=== PATIENT | male | born 1955 | race Caucasian/White ===

== ENCOUNTER 2016-12-15 18:06 | Inpatient (IN) | payer BC ==
[~2016-12-15] VITALS: Ht 175.3 cm; Wt 65.4 kg
[2016-12-15 18:32] LABS: BASO # 0.1 x10^3/uL (0.0-0.2); BASO % 1 % (0-3); EOS % 0 % (0-3); HEMATOCRIT 45.9 % (39.0-53.0); HEMOGLOBIN 15.7 g/dL (13.0-17.5); LYMPH # 0.7 x10^3/uL (1.0-4.8); LYMPH % 6 % (24-48); MEAN CORPUSCULAR HEMOGLOBIN 33 pg (25-35); MEAN CORPUSCULAR HGB CONC 34 g/dL (31-37); MEAN CORPUSCULAR VOLUME 96 fL (79-100); MONO % 6 % (0-9); NEUT % 87 % (31-73); PLATELET COUNT 230 x10^3/uL (140-400); RED BLOOD COUNT 4.77 x10^6/uL (4.30-5.70); RED CELL DISTRIBUTION WIDTH 12.6 % (11.5-14.5)
[2016-12-15 18:44] LABS: CALCIUM 9.8 mg/dL (8.5-10.1); CREATININE 0.8 mg/dL (0.7-1.3); POTASSIUM 4.2 mmol/L (3.5-5.1)
[2016-12-15] MEDS ORDERED: MVI, ADULT NO.4 WITH VIT K 10 ML, FOLIC ACID 1 MG, THIAMINE 100 MG in IV NORMAL SALINE ... IV ONE ×4 (18:45)
[2016-12-15] MEDS ORDERED: ONDANSETRON PF 4 MG/2 ML VIAL. IV ONE (18:45)
[2016-12-15 18:54] LABS: ETHANOL < 10 mg/dL (0-10)
--- NOTE | 2016-12-15 19:50 | RAD ---
PQRS STATEMENT One or more of the following individualized dose reduction techniques were utilized for this study: 1.Automated exposure control 2.Adjustment of the mA and/or kV according to patient size 3.Use of iterative reconstruction technique CT HEAD Indication: FALL, UNRESPONSIVE, NO PRIORS, HX DENIES Reason: fall / Spl. Instructions: / History: TECHNIQUE: 5 mm contiguous axial images were obtained from the skull base to the vertex in both bone and soft tissue algorithm. FINDINGS: There is a large acute intraparenchymal hematoma centered about the right frontal lobe. This measures approximately 6.0 by 6.3 by 5.1 centimeters. This hematoma results in midline shift and overall mass effect which includes trapping of the lateral ventricles secondary to the mass effect upon the 3rd ventricle and foramina of Monro. This results in ventriculomegaly. There is also some intraventricular hemorrhage. Impression: - Large right frontal lobe intraparenchymal hematoma resulting in 16 millimeters right to left midline shift and causing trapping of the lateral ventricles with resulting ventriculomegaly. These critical findings were discussed with Dr. Moreland by telephone at 7:37 p.m. on 12/15/2016. PQRS STATEMENT One or more of the following individualized dose reduction techniques were utilized for this study: 1.Automated exposure control 2.Adjustment of the mA and/or kV according to patient size 3.Use of iterative reconstruction technique CT cervical spine Indication:FALL, UNRESPONSIVE, NO PRIORS, HX DENIES Reason: fall / Spl. Instructions: / History: Technique: Multiple contiguous axial images were obtained through the cervical spine. Coronal and sagittal reformations were created. Findings: The occipital condyles articulate normally with the lateral masses of C1. The odontoid is intact. Alignment and curvature are within normal limits. Vertebral body heights are maintained. No perching of the facets. There is multilevel degenerative disc height loss greatest C5-6 and C6-7. Moderate neural foraminal stenosis is seen at these levels secondary to facet and uncovertebral hypertrophy. This is greatest on the left at C6-7. Correlate for C6 or C7 radiculopathy symptoms. Carotid artery calcifications are noted bilaterally. Lung apices are clear. Impression: - Negative for cervical spine fracture. - Multilevel degenerative disc disease greatest at C5-6 and C6-7 - Bilateral carotid artery calcifications. Electronically signed by: Abisai Roberts (Dec 15, 2016 19:49:43)
[2016-12-15] MEDS ORDERED: PROPOFOL 0 ML IV ONE (19:57)
[2016-12-15] MEDS ORDERED: PROPOFOL 50 ML IV ONE (19:57)
[2016-12-15 19:58] LABS: PLT ESTIMATE ADEQUATE (ADEQUATE)
[2016-12-15 19:59] LABS: TOXIC GRANULATION SLIGHT
[2016-12-15 20:34] LABS: HCO3 ABG 23 mmol/L (21-28); PCO2 ABG 30 mmHg (35-46); PH ABG 7.49 (7.35-7.45); PO2 ABG > 503 mmHg (65-108); SAT O2 ABG 99 % (92-99)
[2016-12-15] MEDS ORDERED: ONDANSETRON PF 4 MG/2 ML VIAL. IV PRN ×3 (20:45→23:30)
[2016-12-15] MEDS ORDERED: ETOMIDATE 20 MG/10 ML VIAL. IV ONE (20:45)
[2016-12-15] MEDS ORDERED: SUCCINYLCHOLINE 200 MG/10 ML VIAL. IV ONE (20:45)
[2016-12-15] MEDS ORDERED: LIDOCAINE 2% 100 MG/5 ML DISP.SYRIN. ONE (20:45)
[2016-12-15] MEDS ORDERED: FENTANYL PF 100 MCG/2 ML VIAL. ONE (20:46)
[2016-12-15] MEDS ORDERED: ROCURONIUM 50 MG/5 ML VIAL. ONE (20:46)
--- NOTE | 2016-12-15 20:51 | PHYS DOC ---
Past Medical History Past Medical History: Hypertension, Other Additional Past Medical Histor: ALCOHOL ABUSE Past Surgical History: Other Alcohol Use: Heavy Drug Use: None Adult General Chief Complaint Chief Complaint: ALCOHOL INTOXICATION HPI HPI 61-year-old male who was found down in his garage by EMS with multiple whiskey bottles around him. Patient has history of chronic alcoholic use. Patient currently is not able to provide any history as he is acutely altered. His at bedside states patient was acting fairly appropriately earlier today and she was able to have a phone conversation with him at 1300 hrs. She then states several hours later she found him down and called EMS. She does state upon further questioning that he has had frequent falls in the recent few days and does have history of falls but states that the patient sometimes does not tell her when he falls. These falls are likely secondary to his history of alcohol use. Patient has not been into any rehabilitation treatment for his use. at bedside states he has history of hypertension only. Patient currently is not taking any blood thinners. She does appear to respond to sternal rub and has a GCS of 10 upon arrival. A complete stroke scale is unable to be obtained secondary to the patient's acutely altered mental status. Review of Systems Review of Systems A 10 point review of systems unable to obtain secondary to the patient's ongoing mental status. Current Medications Current Medications Current Medications Medications (Trade) Dose Ordered Sig/[facility] Start Time Stop Time Status Last Admin Dose Admin Acetaminophen (Tylenol) 650 mg PRN Q4HRS PRN 12/15/16 20:45 12/16/16 20:44 Etomidate (Amidate) 20 mg 1X ONCE 12/15/16 20:45 12/15/16 20:53 DC 12/15/16 19:51 20 MG Fentanyl Citrate (Fentanyl 2ml Vial) 100 mcg STK-MED ONCE 12/15/16 20:46 12/15/16 20:47 DC Lidocaine HCl 100 mg STK-MED ONCE 12/15/16 20:45 12/15/16 20:46 DC Multivitamins/ Minerals 10 ml/ Folic Acid 1 mg/ Thiamine HCl 100 mg/Sodium Chloride 1,011.2 ml @ 1,000 mls/ hr 1X ONCE 12/15/16 18:45 12/15/16 19:45 DC 12/15/16 18:53 1,000 MLS/HR Ondansetron HCl 4 mg 4 mg PRN Q8HRS PRN 12/15/16 20:45 12/16/16 20:44 Propofol (Diprivan) 50 ml @ As Directed STK-MED ONCE 12/15/16 19:57 12/15/16 19:58 DC Rocuronium [place] (Zemuron) 50 mg STK-MED ONCE 12/15/16 20:46 12/15/16 20:47 DC Sodium Chloride (Iv Sodium Chloride 0.9% 1000ml Bag) 1,000 ml @ 100 mls/hr Q10H 12/15/16 20:45 12/16/16 20:44 12/15/16 21:20 100 MLS/HR Succinylcholine Chloride (Anectine) 100 mg 1X ONCE 12/15/16 20:45 12/15/16 20:53 DC 12/15/16 19:52 100 MG Allergies Allergies Allergies Coded Allergies Type Severity Reaction Last Updated Verified No Known Drug Allergies 12/15/16 No Physical Exam Physical Exam Constitutional: Well developed, well nourished, no acute distress, non-toxic appearance. [] HENT: Normocephalic, atraumatic, bilateral external ears normal, oropharynx moist, no oral exudates, nose normal. [] Eyes: PERRLA, EOMI, conjunctiva normal, no discharge. [] Neck: Normal range of motion, supple, no stridor. [] Cardiovascular:Heart rate regular rhythm, no murmur [] Lungs & Thorax: Bilateral breath sounds clear to auscultation, mildly tachypneic [] Abdomen: Bowel sounds normal, soft, no tenderness, no masses, no pulsatile masses. [] Skin: Warm, dry, no erythema, no rash. [] Extremities: No cyanosis, no clubbing, ROM intact, no edema. [] Neurologic: Pt is not displaying any spontaneous movements of any extremities, he is non-verbal but does respond somewhat to noxious stimulus. [] Current Patient Data Vital Signs Vital Signs Date Time Temp Pulse Resp B/P Pulse Ox O2 Delivery O2 Flow Rate FiO2 12/15/16 20:40 Ventilator 12/15/16 20:09 99 12/15/16 18:33 98.6 84 24 167/111 98.6 Lab Values Laboratory Tests Test 12/15/16 18:25 12/15/16 20:20 White Blood Count 11.0x10^3/uL (4.0-11.0) Red Blood Count 4.77x10^6/uL (4.30-5.70) Hemoglobin 15.7g/dL (13.0-17.5) Hematocrit 45.9% (39.0-53.0) Mean Corpuscular Volume 96fL (79-100) Mean Corpuscular Hemoglobin 33pg (25-35) Mean Corpuscular Hemoglobin Concent 34g/dL (31-37) Red Cell Distribution Width 12.6% (11.5-14.5) Platelet Count 230x10^3/uL (140-400) Neutrophils (%) (Auto) 87% (31-73) H Lymphocytes (%) (Auto) 6% (24-48) L Monocytes (%) (Auto) 6% (0-9) Eosinophils (%) (Auto) 0% (0-3) Basophils (%) (Auto) 1% (0-3) Neutrophils # (Auto) 9.5x10^3uL (1.8-7.7) H Lymphocytes # (Auto) 0.7x10^3/uL (1.0-4.8) L Monocytes # (Auto) 0.7x10^3/uL (0.0-1.1) Eosinophils # (Auto) 0.0x10^3/uL (0.0-0.7) Basophils # (Auto) 0.1x10^3/uL (0.0-0.2) Segmented Neutrophils % 86% (35-66) H Band Neutrophils % 5% (0-9) Lymphocytes % 5% (24-48) L Monocytes % 4% (0-10) Toxic Granulation Slight Platelet Estimate Adequate (ADEQUATE) Sodium Level 133mmol/L (136-145) L Potassium Level 4.2mmol/L (3.5-5.1) Chloride Level 94mmol/L (98-107) L Carbon Dioxide Level 27mmol/L (21-32) Anion Gap 12 (6-14) Blood Urea Nitrogen 8mg/dL (8-26) Creatinine 0.8mg/dL (0.7-1.3) Estimated GFR (Cockcroft-Gault) 98.0 Glucose Level 164mg/dL (70-99) H Calcium Level 9.8mg/dL (8.5-10.1) Salicylates Level < 2.8mg/dL (2.8-20.0) L Salicylate Last Dose Date Unknown Salicylate Last Dose Time Unknown Acetaminophen Level < 2mcg/ml (10-30) L Acetaminophen Last Dose Date Unknown Acetaminophen Last Dose Time Unknown Ethyl Alcohol Level < 10mg/dL (0-10) O2 Saturation 99% (92-99) Arterial Blood pH 7.49 (7.35-7.45) H Arterial Blood pCO2 at Patient Temp 30mmHg (35-46) L Arterial Blood pO2 at Patient Temp > 503mmHg (65-108) H Arterial Blood HCO3 23mmol/L (21-28) Arterial Blood Base Excess 1mmol/L (-3-3) FiO2 100 Laboratory Tests 12/15/16 18:25 Laboratory Tests 12/15/16 18:25 EKG EKG EKG as interpreted by me shows a heart rate of 93 bpm. There is significant artifact seen throughout this EKG but there are no obvious ischemic findings. Radiology/Procedures Radiology/Procedures CT of the head without contrast demonstrated the following: Indication: FALL, UNRESPONSIVE, NO PRIORS, HX DENIES Reason: fall / Spl. Instructions: / History: TECHNIQUE: 5 mm contiguous axial images were obtained from the skull base to the vertex in both bone and soft tissue algorithm. FINDINGS: There is a large acute intraparenchymal hematoma centered about the right frontal lobe. This measures approximately 6.0 by 6.3 by 5.1 centimeters. This hematoma results in midline shift and overall mass effect which includes trapping of the lateral ventricles secondary to the mass effect upon the 3rd ventricle and foramina of Monro. This results in ventriculomegaly. There is also some intraventricular hemorrhage. Impression: - Large right frontal lobe intraparenchymal hematoma resulting in 16 millimeters right to left midline shift and causing trapping of the lateral ventricles with resulting ventriculomegaly. CT of the cervical spine demonstrated the following: CT cervical spine Indication:FALL, UNRESPONSIVE, NO PRIORS, HX DENIES Reason: fall / Spl. Instructions: / History: Technique: Multiple contiguous axial images were obtained through the cervical spine. Coronal and sagittal reformations were created. Findings: The occipital condyles articulate normally with the lateral masses of C1. The odontoid is intact. Alignment and curvature are within normal limits. Vertebral body heights are maintained. No perching of the facets. There is multilevel degenerative disc height loss greatest C5-6 and C6-7. Moderate neural foraminal stenosis is seen at these levels secondary to facet and uncovertebral hypertrophy. This is greatest on the left at C6-7. Correlate for C6 or C7 radiculopathy symptoms. Carotid artery calcifications are noted bilaterally. Lung apices are clear. Impression: - Negative for cervical spine fracture. - Multilevel degenerative disc disease greatest at C5-6 and C6-7 - Bilateral carotid artery calcifications. Course & Med Decision Making Course & Med Decision Making This unfortunate 61-year-old male with concern initially for ethanol intoxication has a large intraparenchymal hematoma will be admitted to the ICU for further evaluation and treatment. His ethanol level is negative. His toxicology screen was negative and his blood work is unrevealing. Patient was intubated while in the department to protect his airway and to control his respirations and to optimize him for surgery. The case was discussed with the neurosurgeon, Dr. Paredes, who agreed to take the patient to the OR immediately for evacuation of blood and ventriculostomy. We'll continue to hyperventilate him on the ventilator. His ABG reveals a respiratory alkalosis and his PCO2 is 30 which is appropriate. His blood pressure has improved significantly with sedation and at this time he will we will keep the head of the bed at 30 and keep his vitals signs as optimal as possible before his procedure. Prognosis is grave this patient however and he has a significant chance of being in a persistent vegetative state unfortunately. This is likely indicated the family who still stated they would like to proceed with operative treatment. His case was discussed with the hospitalist, Dr. Erazo, who agreed to admit the patient for further evaluation and treatment. Proximal a 30 minute critical care time used in consultation with specialist. A pastoral consult was also placed and he arrived at bedside to help the patient's family as they deal with this difficult time. Dragon Disclaimer Dragon Disclaimer This electronic medical record was generated, in whole or in part, using a voice recognition dictation system. Critical Care Time Critical care time was 30 minutes exclusive of procedures. Intubation Procedure Intub Indication: Airway protection Consent: Unable to give consent due to emergent nature. Medications Used: see nursing note Procedure: The patient was placed in the appropriate position. Intubation was performed using direct visualization and rapid sequence intubation with a 7.5 endotracheal tube on the first attempt. Initial confirmation of placement included bilateral breath sounds, tube fogging, adequate chest rise, adequate pulse oximetry reading, and positive colorimetry. A chest x-ray to verify correct placement of the tube showed appropriate tube position. The patient tolerated the procedure well. Complications: none. Departure Departure Impression: Primary Impression: Intraparenchymal hematoma of brain Disposition: 09 ADMITTED INPATIENT Admitting Physician: Jenni Erazo Condition: CRITICAL Referrals: LISA KAUR (PCP) GWENDOLYN BRIDGES DO Dec 15, 2016 20:51
[2016-12-15] MEDS ORDERED: GELATIN SPONGE SIZE 100. ONE (20:58)
[2016-12-15] MEDS ORDERED: SURGICEL HEMOSTAT 4X8 EACH. ONE (20:58)
[2016-12-15] MEDS ORDERED: THROMBIN 20,000 UNIT SPRAY.SYRN KIT TP ONE (20:58)
[2016-12-15] MEDS ORDERED: BUPIVAC MPF-EPI 0.5%-1:200000 30 ML VIAL. ONE (20:58)
[2016-12-15] MEDS ORDERED: BACITRACIN 50,000 UNIT in IV NORMAL SALINE 1000ML BAG 1,000 ML IRR ONE (21:00)
[2016-12-15] MEDS ORDERED: PROPOFOL 20 ML IV ONE (21:06)
[2016-12-15] MEDS: IV NORMAL SALINE 1000ML BAG 1,000 ML IV SCH (21:20)
[2016-12-15] MEDS ORDERED: DESFLURANE 61 TO 120 MINUTES IH ONE (21:49)
[2016-12-15] MEDS ORDERED: CEFAZOLIN 2GM PREMIX 50 ML IV ONE (21:52)
[2016-12-15] MEDS ORDERED: MANNITOL 20% PREMIX 500 ML IV ONE (21:53)
[2016-12-15] MEDS ORDERED: PHENYLEPHRINE in 0.9% NACL PF 1 MG/10 ML DISP.SYRIN. IV ONE (21:55)
[2016-12-15] MEDS ORDERED: LEVETIRACETAM 1,000 MG in IV NORMAL SALINE 100ML 100 ML IV ONE (22:15)
[2016-12-15] MEDS ORDERED: IV RINGERS,LACTATED 1000ML 1,000 ML IV SCH (22:30)
[2016-12-15] MEDS ORDERED: MORPHINE SULFATE 2 MG/ML DISP.SYRIN. IV PRN (22:30)
[2016-12-15] MEDS ORDERED: FENTANYL PF 100 MCG/2 ML VIAL. IV PRN ×2 (22:30)
[2016-12-15] MEDS ORDERED: LIDOCAINE 1% 1 ML SYRINGE. ID PRN (22:30)
[2016-12-15] MEDS ORDERED: HYDROMORPHONE 2 MG/ML VIAL. IV PRN (22:30)
[2016-12-15] MEDS ORDERED: PROCHLORPERAZINE 10 MG/2 ML VIAL. IV PRN (22:30)
[2016-12-15] MEDS ORDERED: PROPOFOL 10 MG/ML (100ML) VIAL. IV ONE (23:00)
[2016-12-15] MEDS ORDERED: PROPOFOL 100 ML IV ONE (23:13)
[2016-12-15 23:30] VITALS: BP_SYST 130; BP_SYST 132; BP_DIAS 54; BP_DIAS 67
[2016-12-15] MEDS ORDERED: DIPHENHYDRAMINE 50 MG/ML VIAL IV PRN (23:30)
[2016-12-15] MEDS ORDERED: 0.9 % SODIUM CHLORIDE 10 ML DISP.SYRIN. IV PRN (23:30)
[2016-12-15] MEDS ORDERED: DIPHENHYDRAMINE HCL 25 MG CAPSULE PO PRN (23:30)
[2016-12-15] MEDS ORDERED: DEXTROSE 50% 25 GM / 50ML DISP.SYRIN. IV PRN (23:30)
[2016-12-15] MEDS ORDERED: NICARDIPINE HCL 50 MG in IV NORMAL SALINE 250ML 250 ML IV PRN (23:30)
[2016-12-15] MEDS ORDERED: MAGNESIUM HYDROXIDE 2,400 MG/30 ML ORAL.SUSP. PO PRN (23:30)
[2016-12-15 23:45] VITALS: BP_SYST 124; BP_SYST 130; BP_DIAS 54; BP_DIAS 55
[2016-12-16] VITALS (27 sets, daily range): BP systolic 84–168; BP diastolic 52–85
[2016-12-16] MEDS ORDERED: PROPOFOL 100 ML IV PRN ×2
[2016-12-16 00:27] LABS: FIO2 ABG 40
[2016-12-16] MEDS: POTASSIUM CL 20MEQ D5-0.45NACL 1,000 ML IV SCH ×2 (02:04→21:05)
--- NOTE | 2016-12-16 02:44 | HP ---
ADMIT DATE: 12/15/2016 CHIEF COMPLAINT: Mental status change. HISTORY OF PRESENT ILLNESS: The patient is a pleasant 61-year-old male who was found down in his home. He had whiskey bottles all around him. He is a known alcoholic. Surprisingly, his alcohol level is normal. He has severe mental status change. We did a CAT scan, he has got a lot of blood in the brain. We called Neurosurgery. Neurosurgery has just arrived, the team to take the patient emergently to surgery. PAST MEDICAL HISTORY: Alcoholism, hypertension, and multiple falls. ALLERGIES: None. FAMILY HISTORY: Coronary artery disease. SOCIAL HISTORY: He drinks. I am not sure if he smokes. I think he lives alone. He works at [employer]. MEDICATIONS: Reviewed. Please refer to the MRAD. REVIEW OF SYSTEMS: Unobtainable, the patient is . PHYSICAL EXAMINATION: VITAL SIGNS: Temperature afebrile, pulse 72, respirations 18, blood pressure 182/91. GENERAL: He is sedated on the vent. HEART: Distant S1, S2. LUNGS: Diminished, but clear. ABDOMEN: Soft, decreased bowel sounds. EXTREMITIES: 1+ edema. SKIN: No rashes. NEUROLOGIC: His pupils are reactive. ENDOCRINE: No thyromegaly. LYMPHATICS: No cervical nodes. HEMATOPOIETIC: No bruising. LABORATORY DATA: White count 11, hemoglobin 15, platelets 230. Electrolytes: Sodium 133, potassium 4.2, chloride 94, bicarbonate 27, BUN 8, creatinine 0.8, glucose 164. Drug screen negative. CT of the head was reviewed personally by me, there was a large amount of blood with some shifting secondary to mass effect. ASSESSMENT AND PLAN: Massive intracranial hemorrhage. Prognosis is extremely guarded, at best he is going emergently to surgery. Hopefully that will relieve the pressure and the patient may have a slightly better prognosis. I discussed the case at length with the family and Dr. Moreland here in the ER. Father Gabriel is also here to pray with the patient and the family. RUSSELL SUNSHINE DO DR: RAQUEL/niles JOB#: [id number] / [id number]
[2016-12-16] MEDS ORDERED: INFLUENZA VAX SCREEN BY RX. MC ONE (04:00)
[2016-12-16] MEDS ORDERED: PNEUMOCOCCAL VAX SCREEN BY RX. MC ONE (04:00)
--- NOTE | 2016-12-16 04:17 | OP ---
DATE OF SURGERY: 12/15/2016 PREOPERATIVE DIAGNOSES: Right frontal intracerebral hematoma. POSTOPERATIVE DIAGNOSIS: Right frontal intracerebral hematoma. OPERATION PERFORMED: Emergent right frontal craniotomy with evacuation of intracerebral hematoma and placement of external ventricular drain in the right lateral ventricle. SURGEON: Dash Millan M.D. TALENT DEVELOPMENT MANAGER: The operation was done with the assistance of Dr. Robe Christina MD, assisted with the exposure, the removal of clot, placement of drain and closure. OPERATIVE INDICATIONS: The patient is a 61-year-old man who developed throughout the day problems with increasing obtundation came to the Emergency Room very obtunded requiring intubation. On a CT scan of the head, there was a large right frontal intraparenchymal hemorrhage. After discussing the situation with the family, I recommended craniotomy to evacuate the clot and place a ventricular catheter. His occipital horns were quite enlarged, and I was quite concerned about the development of hydrocephalus. They understood the rationale for surgery, though the distinct possibility that he may not survive would be vegetative despite surgery, they wished me to go ahead. DESCRIPTION OF PROCEDURE: Following general endotracheal anesthesia, the patient was positioned with a roll under his right shoulder. Head was turned to the left. His right frontal region was then clipped, prepped and draped in standard fashion. DEDRA hose and AV impulse boots were applied for DVT prophylaxis. Ancef 2 g was given less than 1 hour prior to initiation of surgery. A curvilinear incision was made just behind the hairline beginning above the right ear and extending superiorly toward the right frontal midline. The skin was flapped forward and Roland clips were used along the skin edge. Periosteum was reflected. Self-retaining retractors were placed. The drill was brought in and several austin holes were placed and the bone flap was developed and removed. The dura was opened in a cruciate fashion, and we just gently then made a small corticotomy in the right frontal region and then dropped gently through about the 1.5 cm of drain and entered a large cavity. Handheld retractors were gently used and we evacuated a very large clot without significant difficulty. Toward the midline, there was clot in the ventricles and we gently removed some of this. The choroid plexus was oozing slightly, this was coagulated. There were a couple of arteries visualized as I removed the clot, which were oozing slightly and we coagulated these as well, but hemostasis was not a significant problem whatsoever. We then placed Surgicel along the cut of the exposed brain surface, within the cavity, laid a ventricular catheter into the right frontal horn direct visualization and brought this out through a separate stab incision. The dura was then closed with interrupted 4-0 Nurolon. DuraGen was placed. The bone flap was replaced and secured with microplates. We did coagulate the cortical margins and assured ourselves of perfect hemostasis and carefully irrigated several times before and closing the dura. Once the bone was in place, the subcutaneous tissue was closed with absorbable sutures. Skin was closed with skin slava. The operation went very well and the patient remained intubated and was taken to the Intensive Care Unit for postoperative care. I felt the surgery went very well. DASH MILLAN MD DR: CASANDRA/niles JOB#: [id number] / [id number] MARTHA
[2016-12-16] MEDS: CEFAZOLIN SODIUM 1 GM in IV NORMAL SALINE 50ML 50 ML IV SCH ×3 (06:39→21:05)
[2016-12-16] MEDS: IV NORMAL SALINE 1000ML BAG 1,000 ML IV SCH (06:45)
[2016-12-16 07:08] LABS: BASO % 1 % (0-3); EOS % 0 % (0-3); HEMATOCRIT 37.5 % (39.0-53.0); HEMOGLOBIN 12.7 g/dL (13.0-17.5); LYMPH % 11 % (24-48); MEAN CORPUSCULAR HEMOGLOBIN 33 pg (25-35); MEAN CORPUSCULAR HGB CONC 34 g/dL (31-37); MEAN CORPUSCULAR VOLUME 97 fL (79-100); MONO % 12 % (0-9); NEUT % 77 % (31-73); PLATELET COUNT 205 x10^3/uL (140-400); RED BLOOD COUNT 3.86 x10^6/uL (4.30-5.70); WHITE BLOOD COUNT 8.7 x10^3/uL (4.0-11.0)
[2016-12-16 07:25] LABS: CALCIUM 8.7 mg/dL (8.5-10.1); CREATININE 0.7 mg/dL (0.7-1.3); GFR 114.3; POTASSIUM 3.5 mmol/L (3.5-5.1)
[2016-12-16] MEDS ORDERED: AMLO5TAB2 PO (07:32)
[2016-12-16] MEDS ORDERED: BENA40TA2 PO (07:32)
--- NOTE | 2016-12-16 07:38 | EKG ---
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
[2016-12-16 07:59] LABS: HCO3 ABG 22 mmol/L (21-28); PCO2 ABG 26 mmHg (35-46); PH ABG 7.54 (7.35-7.45); PO2 ABG 120 mmHg (65-108); SAT O2 ABG 98 % (92-99)
--- NOTE | 2016-12-16 08:04 | RAD ---
Portable AP upright view CXR: 2017 Clinical indications: ET tube placement. Impression: ET tube is in place and the tip is located 4 cm above the level of the rico. No new lung infiltrate or pneumothorax is seen..
--- NOTE | 2016-12-16 08:18 | RAD ---
Portable AP upright view CXR: Clinical indications: Chest pain. Patient is unresponsive. Comparison: None available. Findings: No acute lung infiltrate or pleural effusion or pulmonary edema or lung mass or pneumothorax is seen. The heart size, pulmonary vasculature, mediastinum and both chavo are unremarkable. T Impression: No acute radiographic abnormality is seen.
[2016-12-16 08:54] LABS: FIO2 ABG 35
[2016-12-16] MEDS ORDERED: FLU VACC QUAD 2016-17 (36MOS+)/PF 0.5 ML SYRINGE. VAX IM ONE (09:00)
[2016-12-16] MEDS ORDERED: PNEUMOC CONJ VACC 23-VALENT 0.5 ML VIAL. VAX IM ONE (09:00)
--- NOTE | 2016-12-16 09:38 | PDOC ---
PROGRESS NOTES Chief Complaint Chief Complaint cc: ams A/P Right frontal craniotomy with evacuation of intracerebral hematoma and placement of external ventricular drain in the right lateral ventricle. Alcohol abuse Respiratory failure on Mechanical ventilation Encephalopathy due to above Leucocytosis Hyponatremia fever Plan On mechanical ventilation, pulmonology following [facility] protocol for alcohol withdrawal precaution NS following Kera for seizure precautions BP goal < SBP 130 WBC reactive fever monitor monitor Sodium GI prophylaxis NO dvt prophylaxis Tube feeds, labs reviwed family at bedside prognosis guarded. History of Present Illness History of Present Illness intubated. Vitals Vitals Vital Signs Date Time Temp Pulse Resp B/P Pulse Ox O2 Delivery O2 Flow Rate FiO2 12/16/16 08:44 100 Ventilator 12/16/16 06:00 128/62 12/16/16 06:00 100.6 82 24 100.6 Physical Exam General: Other (sedated and intubated. ) Heart: Normal S1, Normal S2 Lungs: Clear Abdomen: Normal bowel sounds, Soft Extremities: No clubbing, No cyanosis Labs LABS Laboratory Tests Test 12/15/16 18:25 12/15/16 20:20 12/16/16 06:35 12/16/16 08:00 White Blood Count 11.0x10^3/uL (4.0-11.0) 8.7x10^3/uL (4.0-11.0) Red Blood Count 4.77x10^6/uL (4.30-5.70) 3.86x10^6/uL (4.30-5.70) Hemoglobin 15.7g/dL (13.0-17.5) 12.7g/dL (13.0-17.5) Hematocrit 45.9% (39.0-53.0) 37.5% (39.0-53.0) Mean Corpuscular Volume 96fL (79-100) 97fL (79-100) Mean Corpuscular Hemoglobin 33pg (25-35) 33pg (25-35) Mean Corpuscular Hemoglobin Concent 34g/dL (31-37) 34g/dL (31-37) Red Cell Distribution Width 12.6% (11.5-14.5) 13.0% (11.5-14.5) Platelet Count 230x10^3/uL (140-400) 205x10^3/uL (140-400) Neutrophils (%) (Auto) 87% (31-73) 77% (31-73) Lymphocytes (%) (Auto) 6% (24-48) 11% (24-48) Monocytes (%) (Auto) 6% (0-9) 12% (0-9) Eosinophils (%) (Auto) 0% (0-3) 0% (0-3) Basophils (%) (Auto) 1% (0-3) 1% (0-3) Neutrophils # (Auto) 9.5x10^3uL (1.8-7.7) 6.6x10^3uL (1.8-7.7) Lymphocytes # (Auto) 0.7x10^3/uL (1.0-4.8) 1.0x10^3/uL (1.0-4.8) Monocytes # (Auto) 0.7x10^3/uL (0.0-1.1) 1.0x10^3/uL (0.0-1.1) Eosinophils # (Auto) 0.0x10^3/uL (0.0-0.7) 0.0x10^3/uL (0.0-0.7) Basophils # (Auto) 0.1x10^3/uL (0.0-0.2) 0.0x10^3/uL (0.0-0.2) Segmented Neutrophils % 86% (35-66) Band Neutrophils % 5% (0-9) Lymphocytes % 5% (24-48) Monocytes % 4% (0-10) Toxic Granulation Slight Platelet Estimate Adequate (ADEQUATE) Sodium Level 133mmol/L (136-145) 131mmol/L (136-145) Potassium Level 4.2mmol/L (3.5-5.1) 3.5mmol/L (3.5-5.1) Chloride Level 94mmol/L (98-107) 99mmol/L (98-107) Carbon Dioxide Level 27mmol/L (21-32) 23mmol/L (21-32) Anion Gap 12 (6-14) 9 (6-14) Blood Urea Nitrogen 8mg/dL (8-26) 9mg/dL (8-26) Creatinine 0.8mg/dL (0.7-1.3) 0.7mg/dL (0.7-1.3) Estimated GFR (Cockcroft-Gault) 98.0 114.3 Glucose Level 164mg/dL (70-99) 155mg/dL (70-99) Calcium Level 9.8mg/dL (8.5-10.1) 8.7mg/dL (8.5-10.1) Salicylates Level < 2.8mg/dL (2.8-20.0) Salicylate Last Dose Date Unknown Salicylate Last Dose Time Unknown Acetaminophen Level < 2mcg/ml (10-30) Acetaminophen Last Dose Date Unknown Acetaminophen Last Dose Time Unknown Ethyl Alcohol Level < 10mg/dL (0-10) O2 Saturation 99% (92-99) 98% (92-99) Arterial Blood pH 7.49 (7.35-7.45) 7.54 (7.35-7.45) Arterial Blood pCO2 at Patient Temp 30mmHg (35-46) 26mmHg (35-46) Arterial Blood pO2 at Patient Temp > 503mmHg (65-108) 120mmHg (65-108) Arterial Blood HCO3 23mmol/L (21-28) 22mmol/L (21-28) Arterial Blood Base Excess 1mmol/L (-3-3) 1mmol/L (-3-3) FiO2 40 35 Assessment and Plan Assessmemt and Plan Problems Medical Problems: (1) Intraparenchymal hematoma of brain Status: Acute Problems: Comment Review of Relevant I have reviewed the following items jose alfredo (where applicable) has been applied. Labs Laboratory Tests Test 12/15/16 18:25 12/15/16 20:20 12/16/16 06:35 12/16/16 08:00 White Blood Count 11.0x10^3/uL (4.0-11.0) 8.7x10^3/uL (4.0-11.0) Red Blood Count 4.77x10^6/uL (4.30-5.70) 3.86x10^6/uL (4.30-5.70) Hemoglobin 15.7g/dL (13.0-17.5) 12.7g/dL (13.0-17.5) Hematocrit 45.9% (39.0-53.0) 37.5% (39.0-53.0) Mean Corpuscular Volume 96fL (79-100) 97fL (79-100) Mean Corpuscular Hemoglobin 33pg (25-35) 33pg (25-35) Mean Corpuscular Hemoglobin Concent 34g/dL (31-37) 34g/dL (31-37) Red Cell Distribution Width 12.6% (11.5-14.5) 13.0% (11.5-14.5) Platelet Count 230x10^3/uL (140-400) 205x10^3/uL (140-400) Neutrophils (%) (Auto) 87% (31-73) 77% (31-73) Lymphocytes (%) (Auto) 6% (24-48) 11% (24-48) Monocytes (%) (Auto) 6% (0-9) 12% (0-9) Eosinophils (%) (Auto) 0% (0-3) 0% (0-3) Basophils (%) (Auto) 1% (0-3) 1% (0-3) Neutrophils # (Auto) 9.5x10^3uL (1.8-7.7) 6.6x10^3uL (1.8-7.7) Lymphocytes # (Auto) 0.7x10^3/uL (1.0-4.8) 1.0x10^3/uL (1.0-4.8) Monocytes # (Auto) 0.7x10^3/uL (0.0-1.1) 1.0x10^3/uL (0.0-1.1) Eosinophils # (Auto) 0.0x10^3/uL (0.0-0.7) 0.0x10^3/uL (0.0-0.7) Basophils # (Auto) 0.1x10^3/uL (0.0-0.2) 0.0x10^3/uL (0.0-0.2) Segmented Neutrophils % 86% (35-66) Band Neutrophils % 5% (0-9) Lymphocytes % 5% (24-48) Monocytes % 4% (0-10) Toxic Granulation Slight Platelet Estimate Adequate (ADEQUATE) Sodium Level 133mmol/L (136-145) 131mmol/L (136-145) Potassium Level 4.2mmol/L (3.5-5.1) 3.5mmol/L (3.5-5.1) Chloride Level 94mmol/L (98-107) 99mmol/L (98-107) Carbon Dioxide Level 27mmol/L (21-32) 23mmol/L (21-32) Anion Gap 12 (6-14) 9 (6-14) Blood Urea Nitrogen 8mg/dL (8-26) 9mg/dL (8-26) Creatinine 0.8mg/dL (0.7-1.3) 0.7mg/dL (0.7-1.3) Estimated GFR (Cockcroft-Gault) 98.0 114.3 Glucose Level 164mg/dL (70-99) 155mg/dL (70-99) Calcium Level 9.8mg/dL (8.5-10.1) 8.7mg/dL (8.5-10.1) Salicylates Level < 2.8mg/dL (2.8-20.0) Salicylate Last Dose Date Unknown Salicylate Last Dose Time Unknown Acetaminophen Level < 2mcg/ml (10-30) Acetaminophen Last Dose Date Unknown Acetaminophen Last Dose Time Unknown Ethyl Alcohol Level < 10mg/dL (0-10) O2 Saturation 99% (92-99) 98% (92-99) Arterial Blood pH 7.49 (7.35-7.45) 7.54 (7.35-7.45) Arterial Blood pCO2 at Patient Temp 30mmHg (35-46) 26mmHg (35-46) Arterial Blood pO2 at Patient Temp > 503mmHg (65-108) 120mmHg (65-108) Arterial Blood HCO3 23mmol/L (21-28) 22mmol/L (21-28) Arterial Blood Base Excess 1mmol/L (-3-3) 1mmol/L (-3-3) FiO2 40 35 Laboratory Tests Test 12/15/16 18:25 12/15/16 20:20 12/16/16 06:35 12/16/16 08:00 White Blood Count 11.0x10^3/uL (4.0-11.0) 8.7x10^3/uL (4.0-11.0) Red Blood Count 4.77x10^6/uL (4.30-5.70) 3.86x10^6/uL (4.30-5.70) Hemoglobin 15.7g/dL (13.0-17.5) 12.7g/dL (13.0-17.5) Hematocrit 45.9% (39.0-53.0) 37.5% (39.0-53.0) Mean Corpuscular Volume 96fL (79-100) 97fL (79-100) Mean Corpuscular Hemoglobin 33pg (25-35) 33pg (25-35) Mean Corpuscular Hemoglobin Concent 34g/dL (31-37) 34g/dL (31-37) Red Cell Distribution Width 12.6% (11.5-14.5) 13.0% (11.5-14.5) Platelet Count 230x10^3/uL (140-400) 205x10^3/uL (140-400) Neutrophils (%) (Auto) 87% (31-73) 77% (31-73) Lymphocytes (%) (Auto) 6% (24-48) 11% (24-48) Monocytes (%) (Auto) 6% (0-9) 12% (0-9) Eosinophils (%) (Auto) 0% (0-3) 0% (0-3) Basophils (%) (Auto) 1% (0-3) 1% (0-3) Neutrophils # (Auto) 9.5x10^3uL (1.8-7.7) 6.6x10^3uL (1.8-7.7) Lymphocytes # (Auto) 0.7x10^3/uL (1.0-4.8) 1.0x10^3/uL (1.0-4.8) Monocytes # (Auto) 0.7x10^3/uL (0.0-1.1) 1.0x10^3/uL (0.0-1.1) Eosinophils # (Auto) 0.0x10^3/uL (0.0-0.7) 0.0x10^3/uL (0.0-0.7) Basophils # (Auto) 0.1x10^3/uL (0.0-0.2) 0.0x10^3/uL (0.0-0.2) Segmented Neutrophils % 86% (35-66) Band Neutrophils % 5% (0-9) Lymphocytes % 5% (24-48) Monocytes % 4% (0-10) Toxic Granulation Slight Platelet Estimate Adequate (ADEQUATE) Sodium Level 133mmol/L (136-145) 131mmol/L (136-145) Potassium Level 4.2mmol/L (3.5-5.1) 3.5mmol/L (3.5-5.1) Chloride Level 94mmol/L (98-107) 99mmol/L (98-107) Carbon Dioxide Level 27mmol/L (21-32) 23mmol/L (21-32) Anion Gap 12 (6-14) 9 (6-14) Blood Urea Nitrogen 8mg/dL (8-26) 9mg/dL (8-26) Creatinine 0.8mg/dL (0.7-1.3) 0.7mg/dL (0.7-1.3) Estimated GFR (Cockcroft-Gault) 98.0 114.3 Glucose Level 164mg/dL (70-99) 155mg/dL (70-99) Calcium Level 9.8mg/dL (8.5-10.1) 8.7mg/dL (8.5-10.1) Salicylates Level < 2.8mg/dL (2.8-20.0) Salicylate Last Dose Date Unknown Salicylate Last Dose Time Unknown Acetaminophen Level < 2mcg/ml (10-30) Acetaminophen Last Dose Date Unknown Acetaminophen Last Dose Time Unknown Ethyl Alcohol Level < 10mg/dL (0-10) O2 Saturation 99% (92-99) 98% (92-99) Arterial Blood pH 7.49 (7.35-7.45) 7.54 (7.35-7.45) Arterial Blood pCO2 at Patient Temp 30mmHg (35-46) 26mmHg (35-46) Arterial Blood pO2 at Patient Temp > 503mmHg (65-108) 120mmHg (65-108) Arterial Blood HCO3 23mmol/L (21-28) 22mmol/L (21-28) Arterial Blood Base Excess 1mmol/L (-3-3) 1mmol/L (-3-3) FiO2 40 35 Medications Current Medications Multivitamins/ Minerals/Folic Acid/Thiamine HCl/ Sodium Chloride (Infuvite Adult / Iv Sodium Chloride 0.9% 1000ml Bag) 1,011.2 ml @ 1,000 mls/ hr 1X ONCE IV Last administered on 12/15/16 18:53; Start 12/15/16 at 18:45; Stop 12/15/16 at 19: 45; Status DC Ondansetron HCl 4 mg 4 mg 1X ONCE IV ; Start 12/15/16 at 18:45; Stop 12/15/16 at 18:46; Status DC Propofol 0 ml @ As Directed STK-MED ONCE IV ; Start 12/15/16 at 19:57; Stop at 19:58; Status DC Propofol (Diprivan) 50 ml @ As Directed STK-MED ONCE IV ; Start 12/15/16 at 19:57 ; Stop 12/15/16 at 19:58; Status DC Lidocaine HCl 100 mg STK-MED ONCE .ROUTE ; Start 12/15/16 at 20:45; Stop 12/15/16 at 20:46; Status DC Fentanyl Citrate (Fentanyl 2ml Vial) 100 mcg STK-MED ONCE .ROUTE ; Start at 20:46; Stop 12/15/16 at 20:47; Status DC Rocuronium [place] (Zemuron) 50 mg STK-MED ONCE .ROUTE ; Start 12/15/16 at 20:46 ; Stop 12/15/16 at 20:47; Status DC Ondansetron HCl 4 mg 4 mg PRN Q8HRS PRN IV NAUSEA/VOMITING; Start 12/15/16 at 20 :45; Stop 12/15/16 at 23:44; Status DC Sodium Chloride (Iv Sodium Chloride 0.9% 1000ml Bag) 1,000 ml @ 100 mls/hr Q10H IV Last administered on 12/15/16 21:20; Start 12/15/16 at 20:45; Stop 12/16 at 07:25; Status DC Acetaminophen (Tylenol) 650 mg PRN Q4HRS PRN PO FEVER; Start 12/15/16 at 20:45; Stop 12/16/16 at 20:44 Etomidate (Amidate) 20 mg 1X ONCE IV Last administered on 12/15/16 19:51; Start 12/15/16 at 20:45; Stop 12/15/16 at 20:53; Status DC Succinylcholine Chloride 100 mg 100 mg 1X ONCE IV Last administered on 19:52; Start 12/15/16 at 20:45; Stop 12/15/16 at 20:53; Status DC Bacitracin/Sodium Chloride (Iv Sodium Chloride 0.9% 1000ml Bag) 1,000 ml @ 1, 000 mls/hr 1X PERIOP ONCE IRR Last administered on 12/15/16 22:05; Start at 21:00; Stop 12/15/16 at 21:59; Status DC Cellulose 1 each STK-MED ONCE .ROUTE Last administered on 12/15/16 22:05; Start 12/15/16 at 20:58; Stop 12/15/16 at 20:59; Status DC Bupivacaine HCl/ Epinephrine Bitart (Sensorcain-Mpf Epi 0.5%-1:[id number]) 30 ml STK -MED ONCE .ROUTE Last administered on 12/15/16 22:05; Start 12/15/16 at 20:58; Stop 12/15/16 at 20:59; Status DC Gelatin (Gelfoam Size 100) 1 each STK-MED ONCE .ROUTE Last administered on 12/15 22:05; Start 12/15/16 at 20:58; Stop 12/15/16 at 20:59; Status DC Thrombin 70020 unit 20,000 unit STK-MED ONCE TP Last administered on 12/15/16 22:05; Start 12/15/16 at 20:58; Stop 12/15/16 at 20:59; Status DC Propofol (Diprivan) 20 ml @ As Directed STK-MED ONCE IV ; Start 12/15/16 at 21:06 ; Stop 12/15/16 at 21:07; Status DC Desflurane 60 ml 60 ml STK-MED ONCE IH ; Start 12/15/16 at 21:49; Stop 12/15/16 at 21:50; Status DC Cefazolin Sodium/ Dextrose 50 ml @ As Directed STK-MED ONCE IV ; Start 12/15/16 at 21:52; Stop 12/15/16 at 21:53; Status DC Mannitol (Mannitol Iv Soln) 500 ml @ As Directed STK-MED ONCE IV ; Start at 21:53; Stop 12/15/16 at 21:54; Status DC Phenylephrine HCl 1 mg 1 mg STK-MED ONCE IV ; Start 12/15/16 at 21:55; Stop at 21:56; Status DC Levetiracetam/ Sodium Chloride (Keppra/Iv Sodium Chloride 0.9% 100ml) 100 ml @ 400 mls/hr 1X ONCE IV Last administered on 12/15/16t 22:30; Start 12/15/16 at 22 :15; Stop 12/15/16 at 22:29; Status DC Ondansetron HCl (Zofran) 4 mg PRN Q6HRS PRN IV Nausea; Start 12/15/16 at 22:30; Stop 12/16/16 at 22:29 Fentanyl Citrate (Fentanyl 2ml Vial) 25 mcg PRN Q5MIN PRN IV MILD PAIN; Start 12/15/16 at 22:30; Stop 12/16/16 at 22:29 Fentanyl Citrate (Fentanyl 2ml Vial) 50 mcg PRN Q5MIN PRN IV MODERATE PAIN; Start 12/15/16 at 22:30; Stop 12/16/16 at 22:29 Morphine Sulfate 1 mg 1 mg PRN Q10MIN PRN IV SEVERE PAIN; Start 12/15/16 at 22: 30; Stop 12/16/16 at 22:29 Lactated Ringer's (Iv Lactated Ringers) 1,000 ml @ 0 mls/hr Q0M IV ; Start 12/15 at 22:30; Stop 12/16/16 at 22:29 Lidocaine HCl 2 ml 1X PRN PRN ID IV START; Start 12/15/16 at 22:30; Stop at 22:29 Hydromorphone HCl (Dilaudid) 0.5 mg PRN Q10MIN PRN IV SEV PAIN,Second choice; Start 12/15/16 at 22:30; Stop 12/16/16 at 22:29 Prochlorperazine Edisylate 5 mg 5 mg PACU PRN PRN IV NAUSEA; Start 12/15/16 at 22:30; Stop 12/16/16 at 22:29 Propofol 100 ml @ As Directed STK-MED ONCE IV ; Start 12/15/16 at 23:13; Stop at 23:14; Status DC Nicardipine HCl/ Sodium Chloride (Cardene/Iv Sodium Chloride 0.9% 250ml) 270 ml @ 27 mls/hr TITRATE PRN IV PER PROTOCOL; Start 12/15/16 at 23:30 Diphenhydramine HCl (Benadryl) 25 mg PRN Q6HRS PRN PO ITCHING; Start 12/15/16 at 23:30 Diphenhydramine HCl 25 mg 25 mg PRN Q6HRS PRN IV ITCHING; Start 12/15/16 at 23: 30 Levetiracetam/ Sodium Chloride (Keppra/Iv Sodium Chloride 0.9% 100ml) 105 ml @ 400 mls/hr Q12HR IV ; Start 12/16/16 at 09:00 Sodium Chloride (Normal Saline Flush) 3 ml QSHIFT PRN IV AFTER MEDS AND BLOOD DRAWS; Start 12/15/16 at 23:30 Dextrose 12.5 gm PRN Q15MIN PRN IV SEE COMMENTS; Start 12/15/16 at 23:30 Magnesium Hydroxide (Milk Of Magnesia) 2,400 mg PRN Q12HR PRN PO CONSTIPATION; Start 12/15/16 at 23:30 Ondansetron HCl 4 mg 4 mg PRN Q6HRS PRN IV NAUESA, 1ST CHOICE; Start 12/15/16 at 23:30 Cefazolin Sodium 1 gm/Sodium Chloride 50 ml @ 100 mls/hr Q8HRS IV Last administered on 12/16/16 06:39; Start 12/16/16 at 06:00; Stop 12/16/16 at 22:29 Potassium Chloride/Dextrose/ Sod Cl (KCl 20 Meq In D5W-1/2 NS) 1,000 ml @ 75 mls/hr [id number] IV Last administered on 12/16/16 02:04; Start 12/15/16 at 23:30 Fentanyl Citrate (Fentanyl 2ml Vial) 25 mcg PRN Q1HR PRN IV PAIN; Start at 23:30 Fentanyl Citrate (Fentanyl 2ml Vial) 50 mcg PRN Q1HR PRN IV PAIN; Start at 23:30 Info (Do NOT chart on this placeholder) 1 each 1X ONCE MC ; Start 12/16/16 at 04:00; Stop 12/16/16 at 04:01; Status UNV Pneumococcal Polyvalent Vaccine (Do NOT chart on this placeholder) 1 each 1X ONCE MC ; Start 12/16/16 at 04:00; Stop 12/16/16 at 04:01; Status UNV Influenza Virus Vaccine Quadrival (Fluarix Quad 3728-9910 Syringe) 0.5 ml ONCE ONCE VAX IM ; Start 12/16/16 at 09:00; Stop 12/16/16 at 09:01; Status DC Pneumococcal Polyvalent Vaccine 0.5 ml 0.5 ml ONCE ONCE VAX IM ; Start 12/16/16 at 09:00; Stop 12/16/16 at 09:01; Status DC Propofol 100 ml @ 0 mls/hr CONT PRN IV SEE I/O RECORD; Start 12/16/16 at 04:30 Propofol 100 ml @ 0 mls/hr CONT PRN IV SEE I/O RECORD; Start 12/16/16 at 00:00 ; Stop 12/16/16 at 03:00; Status Cancel Propofol (Diprivan) 100 ml @ 0 mls/hr CONT PRN IV SEE I/O RECORD Last administered on 12/15/16t 20:00; Start 12/16/16 at 00:00; Stop 12/16/16 at 09:04 ; Status DC Active Scripts Active Reported Benazepril Hcl 40 Mg Tablet 1 Tab PO DAILY Amlodipine Besylate 5 Mg Tablet 5 Mg PO DAILY Vitals/I & O Vital Sign - Last 24 Hours 12/15/16 12/15/16 12/15/16 12/15/16 18:24 18:33 19:45 19:50 Temp 98.6 98.6 Pulse 84 84 86 122 Resp 29 24 21 21 B/P 167/111 167/111 161/108 215/134 Pulse Ox 100 100 86 99 O2 Delivery Room Air Room Air Room Air Room Air 12/15/16 12/15/16 12/15/16 12/15/16 19:55 20:00 20:05 20:09 Pulse 128 104 108 Resp 41 24 24 B/P 204/132 190/125 193/125 Pulse Ox 94 98 98 99 O2 Delivery Room Air Ventilator Ventilator Ventilator 212/15/16 12/15/16 12/15/16 20:10 20:25 20:35 20:40 Pulse 116 108 106 Resp 26 24 23 B/P 138/91 144/95 125/85 Pulse Ox 97 100 100 O2 Delivery Ventilator Ventilator Ventilator Ventilator 12/15/16 12/15/16 12/15/16 12/15/16 20:40 20:50 21:00 21:15 Pulse 106 100 100 94 Resp 23 24 24 24 B/P 122/86 113/80 90/74 95/69 Pulse Ox 100 100 100 100 O2 Delivery Ventilator Ventilator Ventilator Ventilator 12/15/16 12/15/16 12/15/16 12/15/16 21:20 21:25 23:11 23:30 Temp 99.0 99.0 Pulse 94 94 76 Resp 24 24 26 B/P 95/69 90/72 132/67 Pulse Ox 100 100 97 100 O2 Delivery Ventilator Ventilator Ventilator Ventilator 12/15/16 12/15/16 12/15/16 12/16/16 23:30 23:45 23:45 00:00 Pulse 76 70 Resp 24 24 B/P 130/54 130/54 124/55 118/56 Pulse Ox 100 100 O2 Delivery Ventilator Ventilator 12/16/16 12/16/16 12/16/16 12/16/16 00:00 00:00 00:15 00:15 Pulse 76 Resp 24 B/P 130/54 115/62 130/54 Pulse Ox 100 O2 Delivery Mechanical Ventilator Ventilator 12/16/16 12/16/16 12/16/16 12/16/16 00:30 00:30 00:52 01:00 Pulse 76 Resp 25 B/P 130/54 98/52 130/54 Pulse Ox 100 100 O2 Delivery Ventilator Ventilator 12/16/16 12/16/16 12/16/16 12/16/16 01:00 02:00 02:00 03:00 Temp 99.8 99.8 Pulse 76 80 Resp 24 24 B/P 120/60 124/64 130/54 116/58 Pulse Ox 100 100 O2 Delivery Ventilator Ventilator 12/16/16 12/16/16 12/16/16 12/16/16 03:00 03:08 03:55 04:00 Pulse 78 82 Resp 24 24 B/P 140/68 Pulse Ox 100 100 100 O2 Delivery Ventilator Ventilator Ventilator 212/16/16 12/16/16 12/16/16 04:00 04:00 04:51 05:04 Temp 99.9 99.9 Pulse 70 81 Resp 24 24 B/P Pulse Ox 100 100 100 O2 Delivery Mechanical Ventilator Ventilator Ventilator Ventilator 12/16/16 12/16/16 12/16/16 12/16/16 05:07 06:00 06:00 08:44 Temp 100.6 100.6 Pulse 82 Resp 24 B/P 108/56 128/62 Pulse Ox 100 100 O2 Delivery Ventilator Ventilator Intake and Output 12/15/16 12/15/16 12/16/16 15:00 23:00 07:00 Intake Total 100 ml 414 ml Output Total 425 ml Balance 100 ml -11 ml SANDRA PATTERSON MD Dec 16, 2016 09:38
[2016-12-16] MEDS ORDERED: LORAZEPAM 2 MG/ML VIAL IV PRN (10:00)
[2016-12-16] MEDS: MVI, ADULT NO.4 WITH VIT K 10 ML, THIAMINE 100 MG, FOLIC ACID 1 MG in IV NORMAL SALINE ... IV SCH ×4 (10:19)
[2016-12-16] MEDS: LEVETIRACETAM 500 MG in IV NORMAL SALINE 100ML 100 ML IV SCH ×2 (10:19→21:05)
--- NOTE | 2016-12-16 10:19 | PDOC ---
Provider Note Provider Note dictated MICHAEL RAYA MD Dec 16, 2016 10:19
[2016-12-16] MEDS: ACETAMINOPHEN 325 MG TABLET. PO PRN ×2 (10:21→16:43)
[2016-12-16] MEDS ORDERED: PIP/TAZO PER PHARMACY MC PRN (10:30)
--- NOTE | 2016-12-16 10:44 | CONS ---
DATE OF CONSULTATION: 12/15/2016 ATTENDING PHYSICIAN: Dr. Erazo. REASON FOR CONSULTATION: Respiratory failure, encephalopathy. HISTORY OF PRESENT ILLNESS: The patient is a 61-year-old male who was found down in his garage by EMS with multiple whiskey bottles around him. The patient has history of chronic alcoholism and chronic tobacco use. He was brought into the [facility]. The patient underwent imaging study and a CT head and spine showed a large right frontal intraparenchymal hematoma resulting in 16 mm right to left midline shift and causing trapping of the lateral ventricles. The patient was also intubated. He was seen by Neurosurgery and was taken to the OR. He had a right frontal craniotomy with evacuation of intracerebral hematoma and placement of ventricular drain. The CT head has been scheduled. He is sedated mildly with propofol. His chest x-ray shows endotracheal tube to be in satisfactory position and no definite infiltrates. His latest ABG showed a pH of 7.54, pCO2 of 26, and pO2 of 120, bicarb of 22, and 35% FiO2, AC of 24. I discussed with the family who were at the bedside and with Dr. Paredes. PAST MEDICAL HISTORY: History of alcoholism. History of tobaccoism. Suspect underlying COPD and history of hypertension. PAST SURGICAL HISTORY: None. ALLERGIES: None. MEDICATIONS: Reviewed as listed in the MRAD. REVIEW OF SYSTEMS: Unable to obtain from the patient. PHYSICAL EXAMINATION: GENERAL: He is intubated and mildly sedated. VITAL SIGNS: T-max of 100.6, pulse ox is 100% on 40% FiO2. HEENT: Sclerae nonicteric. NECK: Supple. LUNGS: Diminished breath sounds. CARDIOVASCULAR: Regular rate and rhythm. ABDOMEN: Soft. EXTREMITIES: With no pitting edema. He has intraventricular shunt in place and surgical dressing on his cranium. LABORATORY DATA: Reviewed. ABGs were discussed in my history of present illness. BUN is 9, creatinine 0.7. Urine toxicology screen and alcohol level less than 10. White cell count 8.7, hemoglobin 12.7 and platelets are 205. IMPRESSION: 1. Acute respiratory failure secondary to acute toxic encephalopathy. 2. 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 3. Underlying chronic obstructive pulmonary disease, unknown FEV1, smoked for 40 years. 4. Underlying alcoholism. 5. Respiratory alkalosis on the ventilator. 6. Postop fever. RECOMMENDATIONS: 1. Continue with present assist control mode, reduce the rate and make necessary adjustments based on ABGs. 2. Repeat CT head per Neurosurgery recommendation. 3. We will assess the mental status in the next 24 hours and then consider weaning trial once he is able to follow commands. 4. Consider adding empiric antibiotics. 5. Watch for DTs. 6. Bronchodilators. 7. SCDs for deep vein thrombosis prophylaxis. 8. Stress ulcer prophylaxis. 9. Bronchodilators. 10. Discussed with the patient's family and discussed with Dr. Paredes. Critical care time 39 minutes. MICHAEL RAYA MD DR: ERNESTINA/niles JOB#: [id number] / [id number]
[2016-12-16] MEDS ORDERED: VANCOMYCIN 1.5 GM in IV NORMAL SALINE 500ML BAG 500 ML IV ONE (11:00)
--- NOTE | 2016-12-16 11:03 | RAD ---
Portable AP semiupright view CXR: Clinical indications: Respiratory distress. On the ventilator. Follow-up study.. Findings: ET tube is unchanged in position. NG tube is present and the tip cannot be seen in this study but the tube is seen extending to at least the level of the proximal body of the stomach. No acute lung infiltrate or pleural effusion or pulmonary edema or lung mass or pneumothorax is seen. The heart size, pulmonary vasculature, mediastinum and both chavo are unremarkable. Impression: No acute radiographic abnormality is seen.
[2016-12-16] MEDS: PIPERACILLIN/TAZOBACTAM 4.5 GM in IV NORMAL SALINE 100ML 100 ML IV SCH ×2 (13:07→17:10)
[2016-12-16] MEDS: VANCOMYCIN PER PHARMACY MC PRN (14:57)
--- NOTE | 2016-12-16 16:05 | RAD ---
Clinical indications: Follow-up of intracranial hemorrhage after surgery.. Technique: Noncontrast axial cross sectional scanning of the head was performed. PQRS Compliance Statement: One or more of the following individualized dose reduction techniques were utilized for this examination: 1. Automated exposure control 2. Adjustment of the mA and/or kV according to patient size 3. Use of iterative reconstruction technique Comparison: December 15, 2016. Findings: Since the previous study, the patient has had a craniotomy of the right frontal parietal area to evacuate a large intraparenchymal hematoma. This hematoma has been evacuated. There is some residual hyperdense hematoma present within the right thalamus and basal ganglia area. There has been an increase in the amount of hyperdense intraventricular hemorrhage involving both lateral ventricles and there is persistent hyperdense hemorrhage within the third ventricle. The lateral ventricles have been somewhat decompressed after placement of a ventricular shunt catheter which has been placed through the anterior body of the right lateral ventricle. The left lateral ventricle remains asymmetrically distended but is much less prominent than on the previous study. There is a new finding of pneumocephalus anteriorly. This measures 16 mm in thickness. In addition, there is a small epidural air collection deep to the craniotomy flap. This measures 8 mm in thickness. There is a new hypodense subdural fluid collection involving the right temporal lobe and right frontal lobe and right parietal lobe. This measures 8 mm in thickness. Subcutaneous soft tissue edema and air is seen involving the right scalp around the craniotomy site. IMPRESSION: Postsurgical changes as discussed above related to evacuation of previously seen large right cerebral hemisphere intraparenchymal hematoma.
[2016-12-16] MEDS: FENTANYL PF 100 MCG/2 ML VIAL. IV PRN (16:42)
[2016-12-17] VITALS (24 sets, daily range): BP systolic 90–163; BP diastolic 46–99
[2016-12-17] MEDS: PROPOFOL 100 ML IV PRN ×3 (00:21→19:43)
[2016-12-17] MEDS: PIPERACILLIN/TAZOBACTAM 4.5 GM in IV NORMAL SALINE 100ML 100 ML IV SCH ×4 (00:21→17:52)
[2016-12-17] MEDS: VANCOMYCIN 1 GM in IV NORMAL SALINE 250ML 250 ML IV SCH ×2 (00:22→14:13)
[2016-12-17] MEDS: FENTANYL PF 100 MCG/2 ML VIAL. IV PRN ×4 (02:41→18:41)
[2016-12-17] MEDS: POTASSIUM CL 20MEQ D5-0.45NACL 1,000 ML IV SCH ×2 (05:51→15:34)
--- NOTE | 2016-12-17 06:55 | PDOC ---
PULMONARY PROGRESS NOTES Subjective on vent, sedated Vitals Vital Signs Date Time Temp Pulse Resp B/P Pulse Ox O2 Delivery O2 Flow Rate FiO2 12/17/16 06:00 71 18 148/62 100 Ventilator 12/17/16 00:00 99.6 99.6 Comments mohini mckinney w rn, as mentioned as above, other sys otherwise neg lymphatics no lap HEENT: Other (s/p crani, perrl, orally intubated, nose clear. ) Lungs: Crackles Cardiovascular: S1, S2 Abdomen: Soft, Non-tender, Other (no mass) Extremities: No Edema Skin: Warm Labs Laboratory Tests Test 12/15/16 18:25 12/15/16 20:20 12/15/16 23:35 12/16/16 06:35 White Blood Count 11.0x10^3/uL (4.0-11.0) 8.7x10^3/uL (4.0-11.0) Red Blood Count 4.77x10^6/uL (4.30-5.70) 3.86x10^6/uL (4.30-5.70) Hemoglobin 15.7g/dL (13.0-17.5) 12.7g/dL (13.0-17.5) Hematocrit 45.9% (39.0-53.0) 37.5% (39.0-53.0) Mean Corpuscular Volume 96fL (79-100) 97fL (79-100) Mean Corpuscular Hemoglobin 33pg (25-35) 33pg (25-35) Mean Corpuscular Hemoglobin Concent 34g/dL (31-37) 34g/dL (31-37) Red Cell Distribution Width 12.6% (11.5-14.5) 13.0% (11.5-14.5) Platelet Count 230x10^3/uL (140-400) 205x10^3/uL (140-400) Neutrophils (%) (Auto) 87% (31-73) 77% (31-73) Lymphocytes (%) (Auto) 6% (24-48) 11% (24-48) Monocytes (%) (Auto) 6% (0-9) 12% (0-9) Eosinophils (%) (Auto) 0% (0-3) 0% (0-3) Basophils (%) (Auto) 1% (0-3) 1% (0-3) Neutrophils # (Auto) 9.5x10^3uL (1.8-7.7) 6.6x10^3uL (1.8-7.7) Lymphocytes # (Auto) 0.7x10^3/uL (1.0-4.8) 1.0x10^3/uL (1.0-4.8) Monocytes # (Auto) 0.7x10^3/uL (0.0-1.1) 1.0x10^3/uL (0.0-1.1) Eosinophils # (Auto) 0.0x10^3/uL (0.0-0.7) 0.0x10^3/uL (0.0-0.7) Basophils # (Auto) 0.1x10^3/uL (0.0-0.2) 0.0x10^3/uL (0.0-0.2) Segmented Neutrophils % 86% (35-66) Band Neutrophils % 5% (0-9) Lymphocytes % 5% (24-48) Monocytes % 4% (0-10) Toxic Granulation Slight Platelet Estimate Adequate (ADEQUATE) Sodium Level 133mmol/L (136-145) 131mmol/L (136-145) Potassium Level 4.2mmol/L (3.5-5.1) 3.5mmol/L (3.5-5.1) Chloride Level 94mmol/L (98-107) 99mmol/L (98-107) Carbon Dioxide Level 27mmol/L (21-32) 23mmol/L (21-32) Anion Gap 12 (6-14) 9 (6-14) Blood Urea Nitrogen 8mg/dL (8-26) 9mg/dL (8-26) Creatinine 0.8mg/dL (0.7-1.3) 0.7mg/dL (0.7-1.3) Estimated GFR (Cockcroft-Gault) 98.0 114.3 Glucose Level 164mg/dL (70-99) 155mg/dL (70-99) Calcium Level 9.8mg/dL (8.5-10.1) 8.7mg/dL (8.5-10.1) Salicylates Level < 2.8mg/dL (2.8-20.0) Salicylate Last Dose Date Unknown Salicylate Last Dose Time Unknown Acetaminophen Level < 2mcg/ml (10-30) Acetaminophen Last Dose Date Unknown Acetaminophen Last Dose Time Unknown Ethyl Alcohol Level < 10mg/dL (0-10) O2 Saturation 99% (92-99) Arterial Blood pH 7.49 (7.35-7.45) Arterial Blood pCO2 at Patient Temp 30mmHg (35-46) Arterial Blood pO2 at Patient Temp > 503mmHg (65-108) Arterial Blood HCO3 23mmol/L (21-28) Arterial Blood Base Excess 1mmol/L (-3-3) FiO2 40 Nasal Screen MRSA (PCR) Negative (Negative) Test 12/16/16 08:00 O2 Saturation 98% (92-99) Arterial Blood pH 7.54 (7.35-7.45) Arterial Blood pCO2 at Patient Temp 26mmHg (35-46) Arterial Blood pO2 at Patient Temp 120mmHg (65-108) Arterial Blood HCO3 22mmol/L (21-28) Arterial Blood Base Excess 1mmol/L (-3-3) FiO2 35 Laboratory Tests Test 12/16/16 08:00 O2 Saturation 98% (92-99) Arterial Blood pH 7.54 (7.35-7.45) Arterial Blood pCO2 at Patient Temp 26mmHg (35-46) Arterial Blood pO2 at Patient Temp 120mmHg (65-108) Arterial Blood HCO3 22mmol/L (21-28) Arterial Blood Base Excess 1mmol/L (-3-3) FiO2 35 Medications Active Scripts Medications Dose Route/Sig Days Date Category Benazepril Hcl 40 Mg Tablet 1 Tab PO DAILY 12/16/16 Reported Amlodipine Besylate 5 Mg Tablet 5 Mg PO DAILY 12/16/16 Reported Comments cxr, reviewed, ett ok, no infilt Impression . IMPRESSION: 1. Acute respiratory failure secondary to acute toxic encephalopathy. 2. 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 3. Underlying chronic obstructive pulmonary disease, unknown FEV1, smoked for 40 years. 4. Underlying alcoholism. 5. Respiratory alkalosis on the ventilator. 6. Postop fever. Plan . RECOMMENDATIONS: 1. Continue vent support, vent setting reviewed, will do sbt when awake 2. Repeat CT head per Neurosurgery recommendation. 3. elevate hob 4. Consider adding empiric antibiotics. 5. Watch for DTs. 6. Bronchodilators. 7. SCDs for deep vein thrombosis prophylaxis. 8. Stress ulcer prophylaxis. 9. Bronchodilators. 10. Discussed with rn, rt EMERALD IBARRA MD Dec 17, 2016 06:55
[2016-12-17] MEDS: MVI, ADULT NO.4 WITH VIT K 10 ML, THIAMINE 100 MG, FOLIC ACID 1 MG in IV NORMAL SALINE ... IV SCH ×4 (08:42)
[2016-12-17] MEDS: LEVETIRACETAM 500 MG in IV NORMAL SALINE 100ML 100 ML IV SCH (08:52)
[2016-12-17 10:20] LABS: HCO3 ABG 20 mmol/L (21-28); PCO2 ABG 28 mmHg (35-46); PH ABG 7.48 (7.35-7.45); PO2 ABG 117 mmHg (65-108); SAT O2 ABG 98 % (92-99)
--- NOTE | 2016-12-17 10:22 | PDOC ---
PROGRESS NOTES Chief Complaint Chief Complaint cc: ams A/P Right frontal craniotomy with evacuation of intracerebral hematoma and placement of external ventricular drain in the right lateral ventricle.POD 2 Alcohol abuse Respiratory failure on Mechanical ventilation Elective Encephalopathy due to above Leucocytosis better Hyponatremia labs pending fever resolved. Plan On mechanical ventilation, pulmonology following [facility] protocol for alcohol withdrawal precaution NS following Keppra for seizure precautions BP goal < SBP 130 WBC reactive labs pending. GI prophylaxis NO dvt prophylaxis Tube feeds, if not able to extubate today labs reviwed family at bedside prognosis guarded. History of Present Illness History of Present Illness intubated. Vitals Vitals Vital Signs Date Time Temp Pulse Resp B/P Pulse Ox O2 Delivery O2 Flow Rate FiO2 12/17/16 10:14 100 Ventilator 12/17/16 10:00 72 18 141/67 12/17/16 08:00 99.3 99.3 Physical Exam General: Other (sedated and intubated. ) Heart: Normal S1, Normal S2 Lungs: Clear Abdomen: Normal bowel sounds, Soft Extremities: No clubbing, No cyanosis Assessment and Plan Assessmemt and Plan Problems Medical Problems: (1) Intraparenchymal hematoma of brain Status: Acute Problems: Comment Review of Relevant I have reviewed the following items jose alfredo (where applicable) has been applied. Labs Laboratory Tests Test 12/15/16 18:25 12/15/16 20:20 12/15/16 23:35 12/16/16 06:35 White Blood Count 11.0x10^3/uL (4.0-11.0) 8.7x10^3/uL (4.0-11.0) Red Blood Count 4.77x10^6/uL (4.30-5.70) 3.86x10^6/uL (4.30-5.70) Hemoglobin 15.7g/dL (13.0-17.5) 12.7g/dL (13.0-17.5) Hematocrit 45.9% (39.0-53.0) 37.5% (39.0-53.0) Mean Corpuscular Volume 96fL (79-100) 97fL (79-100) Mean Corpuscular Hemoglobin 33pg (25-35) 33pg (25-35) Mean Corpuscular Hemoglobin Concent 34g/dL (31-37) 34g/dL (31-37) Red Cell Distribution Width 12.6% (11.5-14.5) 13.0% (11.5-14.5) Platelet Count 230x10^3/uL (140-400) 205x10^3/uL (140-400) Neutrophils (%) (Auto) 87% (31-73) 77% (31-73) Lymphocytes (%) (Auto) 6% (24-48) 11% (24-48) Monocytes (%) (Auto) 6% (0-9) 12% (0-9) Eosinophils (%) (Auto) 0% (0-3) 0% (0-3) Basophils (%) (Auto) 1% (0-3) 1% (0-3) Neutrophils # (Auto) 9.5x10^3uL (1.8-7.7) 6.6x10^3uL (1.8-7.7) Lymphocytes # (Auto) 0.7x10^3/uL (1.0-4.8) 1.0x10^3/uL (1.0-4.8) Monocytes # (Auto) 0.7x10^3/uL (0.0-1.1) 1.0x10^3/uL (0.0-1.1) Eosinophils # (Auto) 0.0x10^3/uL (0.0-0.7) 0.0x10^3/uL (0.0-0.7) Basophils # (Auto) 0.1x10^3/uL (0.0-0.2) 0.0x10^3/uL (0.0-0.2) Segmented Neutrophils % 86% (35-66) Band Neutrophils % 5% (0-9) Lymphocytes % 5% (24-48) Monocytes % 4% (0-10) Toxic Granulation Slight Platelet Estimate Adequate (ADEQUATE) Sodium Level 133mmol/L (136-145) 131mmol/L (136-145) Potassium Level 4.2mmol/L (3.5-5.1) 3.5mmol/L (3.5-5.1) Chloride Level 94mmol/L (98-107) 99mmol/L (98-107) Carbon Dioxide Level 27mmol/L (21-32) 23mmol/L (21-32) Anion Gap 12 (6-14) 9 (6-14) Blood Urea Nitrogen 8mg/dL (8-26) 9mg/dL (8-26) Creatinine 0.8mg/dL (0.7-1.3) 0.7mg/dL (0.7-1.3) Estimated GFR (Cockcroft-Gault) 98.0 114.3 Glucose Level 164mg/dL (70-99) 155mg/dL (70-99) Calcium Level 9.8mg/dL (8.5-10.1) 8.7mg/dL (8.5-10.1) Salicylates Level < 2.8mg/dL (2.8-20.0) Salicylate Last Dose Date Unknown Salicylate Last Dose Time Unknown Acetaminophen Level < 2mcg/ml (10-30) Acetaminophen Last Dose Date Unknown Acetaminophen Last Dose Time Unknown Ethyl Alcohol Level < 10mg/dL (0-10) O2 Saturation 99% (92-99) Arterial Blood pH 7.49 (7.35-7.45) Arterial Blood pCO2 at Patient Temp 30mmHg (35-46) Arterial Blood pO2 at Patient Temp > 503mmHg (65-108) Arterial Blood HCO3 23mmol/L (21-28) Arterial Blood Base Excess 1mmol/L (-3-3) FiO2 40 Nasal Screen MRSA (PCR) Negative (Negative) Test 12/16/16 08:00 O2 Saturation 98% (92-99) Arterial Blood pH 7.54 (7.35-7.45) Arterial Blood pCO2 at Patient Temp 26mmHg (35-46) Arterial Blood pO2 at Patient Temp 120mmHg (65-108) Arterial Blood HCO3 22mmol/L (21-28) Arterial Blood Base Excess 1mmol/L (-3-3) FiO2 35 Medications Current Medications Multivitamins/ Minerals/Folic Acid/Thiamine HCl/ Sodium Chloride (Infuvite Adult / Iv Sodium Chloride 0.9% 1000ml Bag) 1,011.2 ml @ 1,000 mls/ hr 1X ONCE IV Last administered on 12/15/16t 18:53; Start 12/15/16 at 18:45; Stop 12/15/16 at 19: 45; Status DC Ondansetron HCl 4 mg 4 mg 1X ONCE IV ; Start 12/15/16 at 18:45; Stop 12/15/16 at 18:46; Status DC Propofol 0 ml @ As Directed STK-MED ONCE IV ; Start 12/15/16 at 19:57; Stop at 19:58; Status DC Propofol (Diprivan) 50 ml @ As Directed STK-MED ONCE IV ; Start 12/15/16 at 19:57 ; Stop 12/15/16 at 19:58; Status DC Lidocaine HCl 100 mg STK-MED ONCE .ROUTE ; Start 12/15/16 at 20:45; Stop 12/15/16 at 20:46; Status DC Fentanyl Citrate (Fentanyl 2ml Vial) 100 mcg STK-MED ONCE .ROUTE ; Start at 20:46; Stop 12/15/16 at 20:47; Status DC Rocuronium Dwarf (Zemuron) 50 mg STK-MED ONCE .ROUTE ; Start 12/15/16 at 20:46 ; Stop 12/15/16 at 20:47; Status DC Ondansetron HCl 4 mg 4 mg PRN Q8HRS PRN IV NAUSEA/VOMITING; Start 12/15/16 at 20 :45; Stop 12/15/16 at 23:44; Status DC Sodium Chloride (Iv Sodium Chloride 0.9% 1000ml Bag) 1,000 ml @ 100 mls/hr Q10H IV Last administered on 12/15/16 21:20; Start 12/15/16 at 20:45; Stop 12/16 at 07:25; Status DC Acetaminophen (Tylenol) 650 mg PRN Q4HRS PRN PO FEVER Last administered on 12/16 16:43; Start 12/15/16 at 20:45; Stop 12/16/16 at 20:44; Status DC Etomidate (Amidate) 20 mg 1X ONCE IV Last administered on 12/15/16 19:51; Start 12/15/16 at 20:45; Stop 12/15/16 at 20:53; Status DC Succinylcholine Chloride 100 mg 100 mg 1X ONCE IV Last administered on 19:52; Start 12/15/16 at 20:45; Stop 12/15/16 at 20:53; Status DC Bacitracin/Sodium Chloride (Iv Sodium Chloride 0.9% 1000ml Bag) 1,000 ml @ 1, 000 mls/hr 1X PERIOP ONCE IRR Last administered on 12/15/16 22:05; Start at 21:00; Stop 12/15/16 at 21:59; Status DC Cellulose 1 each STK-MED ONCE .ROUTE Last administered on 12/15/16 22:05; Start 12/15/16 at 20:58; Stop 12/15/16 at 20:59; Status DC Bupivacaine HCl/ Epinephrine Bitart (Sensorcain-Mpf Epi 0.5%-1:[id number]) 30 ml STK -MED ONCE .ROUTE Last administered on 12/15/16 22:05; Start 12/15/16 at 20:58; Stop 12/15/16 at 20:59; Status DC Gelatin (Gelfoam Size 100) 1 each STK-MED ONCE .ROUTE Last administered on 12/15 22:05; Start 12/15/16 at 20:58; Stop 12/15/16 at 20:59; Status DC Thrombin 07190 unit 20,000 unit STK-MED ONCE TP Last administered on 12/15/16 22:05; Start 12/15/16 at 20:58; Stop 12/15/16 at 20:59; Status DC Propofol (Diprivan) 20 ml @ As Directed STK-MED ONCE IV ; Start 12/15/16 at 21:06 ; Stop 12/15/16 at 21:07; Status DC Desflurane 60 ml 60 ml STK-MED ONCE IH ; Start 12/15/16 at 21:49; Stop 12/15/16 at 21:50; Status DC Cefazolin Sodium/ Dextrose 50 ml @ As Directed STK-MED ONCE IV ; Start 12/15/16 at 21:52; Stop 12/15/16 at 21:53; Status DC Mannitol (Mannitol Iv Soln) 500 ml @ As Directed STK-MED ONCE IV ; Start at 21:53; Stop 12/15/16 at 21:54; Status DC Phenylephrine HCl 1 mg 1 mg STK-MED ONCE IV ; Start 12/15/16 at 21:55; Stop at 21:56; Status DC Levetiracetam/ Sodium Chloride (Keppra/Iv Sodium Chloride 0.9% 100ml) 100 ml @ 400 mls/hr 1X ONCE IV Last administered on 12/15/16t 22:30; Start 12/15/16 at 22 :15; Stop 12/15/16 at 22:29; Status DC Ondansetron HCl (Zofran) 4 mg PRN Q6HRS PRN IV Nausea; Start 12/15/16 at 22:30; Stop 12/16/16 at 14:48; Status DC Fentanyl Citrate (Fentanyl 2ml Vial) 25 mcg PRN Q5MIN PRN IV MILD PAIN; Start 12/15/16 at 22:30; Stop 12/16/16 at 13:00; Status DC Fentanyl Citrate (Fentanyl 2ml Vial) 50 mcg PRN Q5MIN PRN IV MODERATE PAIN; Start 12/15/16 at 22:30; Stop 12/16/16 at 13:00; Status DC Morphine Sulfate 1 mg 1 mg PRN Q10MIN PRN IV SEVERE PAIN; Start 12/15/16 at 22: 30; Stop 12/16/16 at 13:08; Status DC Lactated Ringer's (Iv Lactated Ringers) 1,000 ml @ 0 mls/hr Q0M IV ; Start 12/15 at 22:30; Stop 12/16/16 at 13:08; Status DC Lidocaine HCl 2 ml 1X PRN PRN ID IV START; Start 12/15/16 at 22:30; Stop at 13:08; Status DC Hydromorphone HCl (Dilaudid) 0.5 mg PRN Q10MIN PRN IV SEV PAIN,Second choice; Start 12/15/16 at 22:30; Stop 12/16/16 at 13:01; Status DC Prochlorperazine Edisylate 5 mg 5 mg PACU PRN PRN IV NAUSEA; Start 12/15/16 at 22:30; Stop 12/16/16 at 13:08; Status DC Propofol 100 ml @ As Directed STK-MED ONCE IV ; Start 12/15/16 at 23:13; Stop at 23:14; Status DC Nicardipine HCl/ Sodium Chloride (Cardene/Iv Sodium Chloride 0.9% 250ml) 270 ml @ 27 mls/hr TITRATE PRN IV PER PROTOCOL; Start 12/15/16 at 23:30 Diphenhydramine HCl (Benadryl) 25 mg PRN Q6HRS PRN PO ITCHING; Start 12/15/16 at 23:30 Diphenhydramine HCl 25 mg 25 mg PRN Q6HRS PRN IV ITCHING; Start 12/15/16 at 23: 30 Levetiracetam/ Sodium Chloride (Keppra/Iv Sodium Chloride 0.9% 100ml) 105 ml @ 400 mls/hr Q12HR IV Last administered on 12/17/16 08:52; Start 12/16/16 at 09: 00 Sodium Chloride (Normal Saline Flush) 3 ml QSHIFT PRN IV AFTER MEDS AND BLOOD DRAWS; Start 12/15/16 at 23:30 Dextrose 12.5 gm PRN Q15MIN PRN IV SEE COMMENTS; Start 12/15/16 at 23:30 Magnesium Hydroxide (Milk Of Magnesia) 2,400 mg PRN Q12HR PRN PO CONSTIPATION; Start 12/15/16 at 23:30 Ondansetron HCl 4 mg 4 mg PRN Q6HRS PRN IV NAUESA, 1ST CHOICE; Start 12/15/16 at 23:30 Cefazolin Sodium 1 gm/Sodium Chloride 50 ml @ 100 mls/hr Q8HRS IV Last administered on 12/16/16 21:05; Start 12/16/16 at 06:00; Stop 12/16/16 at 22:29 ; Status DC Potassium Chloride/Dextrose/ Sod Cl (KCl 20 Meq In D5W-1/2 NS) 1,000 ml @ 75 mls/hr [id number] IV Last administered on 12/17/16 05:51; Start 12/15/16 at 23:30 Fentanyl Citrate (Fentanyl 2ml Vial) 25 mcg PRN Q1HR PRN IV PAIN Last administered on 12/16/16 16:42; Start 12/15/16 at 23:30 Fentanyl Citrate (Fentanyl 2ml Vial) 50 mcg PRN Q1HR PRN IV PAIN Last administered on 12/17/16 02:41; Start 12/15/16 at 23:30 Info (Do NOT chart on this placeholder) 1 each 1X ONCE MC ; Start 12/16/16 at 04:00; Stop 12/16/16 at 04:01; Status UNV Pneumococcal Polyvalent Vaccine (Do NOT chart on this placeholder) 1 each 1X ONCE MC ; Start 12/16/16 at 04:00; Stop 12/16/16 at 04:01; Status UNV Influenza Virus Vaccine Quadrival (Fluarix Quad [id number] Syringe) 0.5 ml ONCE ONCE VAX IM Last administered on 12/17/16 08:49; Start 12/16/16 at 09:00; Stop 12/16/16 at 09:01; Status DC Pneumococcal Polyvalent Vaccine 0.5 ml 0.5 ml ONCE ONCE VAX IM Last administered on 12/17/16 08:47; Start 12/16/16 at 09:00; Stop 12/16/16 at 09:01 ; Status DC Propofol 100 ml @ 0 mls/hr CONT PRN IV SEE I/O RECORD Last administered on 12/17 06:25; Start 12/16/16 at 04:30 Propofol 100 ml @ 0 mls/hr CONT PRN IV SEE I/O RECORD; Start 12/16/16 at 00:00 ; Stop 12/16/16 at 03:00; Status Cancel Propofol 100 ml @ 0 mls/hr CONT PRN IV SEE I/O RECORD Last administered on 20:00; Start 12/16/16 at 00:00; Stop 12/16/16 at 09:04; Status DC Multivitamins/ Minerals/Thiamine HCl/Folic Acid/ Sodium Chloride (Infuvite Adult / Iv Sodium Chloride 0.9% 1000ml Bag) 1,011.2 ml @ 100 mls/ hr DAILY IV Last administered on 12/17/16 08:42; Start 12/16/16 at 10:00; Stop 12/22/16 at 09:59 Lorazepam (Ativan) 2 mg PRN Q1HR PRN IV For CIWA 8-14; Start 12/16/16 at 10:00 Lorazepam (Ativan) 4 mg PRN Q1HR PRN IV For CIWA 15 or greater; Start 12/16/16 at 10:00 Piperacillin Sod/ Tazobactam Sod (Zosyn Per Pharmacy) 1 each PRN DAILY PRN MC SEE COMMENTS; Start 12/16/16 at 10:30 Vancomycin HCl 1 each 1 each PRN DAILY PRN MC SEE COMMENTS Last administered on 12/16/16 14:57; Start 12/16/16 at 10:30 Vancomycin HCl 1.5 gm/Sodium Chloride 500 ml @ 250 mls/hr 1X ONCE IV Last administered on 12/16/16 14:08; Start 12/16/16 at 11:00; Stop 12/16/16 at 12:59 ; Status DC Piperacillin Sod/ Tazobactam Sod/ Sodium Chloride (Zosyn/Iv Sodium Chloride 0.9 % 100ml) 100 ml @ 200 mls/hr Q6HRS IV Last administered on 12/17/16 05:51; Start 12/16/16 at 12:00 Propofol 1000 mg 1,000 mg STK-MED ONCE IV ; Start 12/15/16 at 23:00; Stop at 13:28; Status DC Vancomycin HCl/ Sodium Chloride (Iv Sodium Chloride 0.9% 250ml) 250 ml @ 250 mls/hr Q12H IV Last administered on 12/17/16 00:22; Start 12/17/16 at 02:00 Vancomycin HCl 1 each 1X ONCE MC ; Start 12/18/16 at 01:30; Stop 12/18/16 at 01 :31 Active Scripts Active Reported Benazepril Hcl 40 Mg Tablet 1 Tab PO DAILY Amlodipine Besylate 5 Mg Tablet 5 Mg PO DAILY Vitals/I & O Vital Sign - Last 24 Hours 12/16/16 12/16/16 12/16/16 12/16/16 11:00 11:00 11:38 12:00 Pulse 82 B/P 114/64 114/64 Pulse Ox 100 100 O2 Delivery Ventilator Ventilator Mechanical Ventilator 12/16/16 12/16/16 12/16/16 12/16/16 12:00 12:00 13:00 13:00 Temp 98.6 98.6 Pulse 76 72 B/P 144/72 116/64 122/66 Pulse Ox 100 98 O2 Delivery Ventilator Ventilator 12/16/16 12/16/16 12/16/16 12/16/16 13:00 13:05 14:00 14:00 Pulse 70 B/P 128/68 Pulse Ox 100 98 O2 Delivery Ventilator Ventilator 12/16/16 12/16/16 12/16/16 12/16/16 15:00 15:00 16:00 16:00 Temp 99.1 99.1 Pulse 70 68 B/P 122/66 136/66 135/85 118/64 Pulse Ox 100 100 O2 Delivery Ventilator Ventilator 12/16/16 12/16/16 12/16/16 12/16/16 16:00 16:14 16:42 17:00 Resp 20 B/P 88/54 Pulse Ox 100 100 O2 Delivery Mechanical Ventilator Ventilator Ventilator 12/16/16 12/16/16 12/16/16 12/16/16 17:00 17:12 18:00 18:00 Pulse 71 71 65 Resp 28 B/P 84/64 100/54 84/65 Pulse Ox 100 100 100 O2 Delivery Ventilator Ventilator Ventilator 12/16/16 12/16/16 12/16/16 12/16/16 18:17 19:00 20:00 20:00 Temp 97.9 97.9 Pulse 70 71 Resp 16 16 B/P 103/63 100/67 Pulse Ox 100 100 100 O2 Delivery Ventilator Ventilator Ventilator 12/16/16 12/16/16 12/16/16 12/16/16 20:00 20:10 21:00 22:00 Pulse 70 69 Resp 18 18 B/P 112/55 135/61 Pulse Ox 100 100 100 O2 Delivery Mechanical Ventilator Ventilator Ventilator Ventilator 12/16/16 12/16/16 12/17/16 12/17/16 22:55 23:00 00:00 00:00 Temp 99.6 99.6 Pulse 68 71 Resp 18 18 B/P 105/54 127/55 Pulse Ox 100 100 100 O2 Delivery Ventilator Ventilator Ventilator 12/17/16 12/17/16 12/17/16 12/17/16 00:00 01:00 01:37 02:00 Pulse 73 74 Resp 18 18 B/P 139/61 124/56 Pulse Ox 100 100 100 O2 Delivery Mechanical Ventilator Ventilator Ventilator Ventilator 12/17/16 12/17/16 12/17/16 12/17/16 02:41 03:00 03:13 03:50 Pulse 75 Resp 18 18 18 B/P 94/51 Pulse Ox 100 100 100 100 O2 Delivery Ventilator Ventilator Ventilator Ventilator 12/17/16 12/17/16 12/17/16 12/17/16 04:00 04:00 04:00 05:00 Pulse 66 72 Resp 18 18 B/P 90/51 97/54 Pulse Ox 100 100 O2 Delivery Mechanical Ventilator Ventilator Ventilator 12/17/16 12/17/16 12/17/16 12/17/16 05:47 06:00 07:00 08:00 Pulse 71 73 69 Resp 18 18 B/P 148/62 121/62 102/94 Pulse Ox 100 100 100 O2 Delivery Ventilator Ventilator Ventilator 12/17/16 12/17/16 12/17/16 12/17/16 08:00 08:00 09:00 10:00 Temp 99.3 99.3 Pulse 69 71 72 Resp 18 18 18 B/P 102/94 147/66 141/67 Pulse Ox 100 100 95 O2 Delivery Ventilator Mechanical Ventilator Ventilator Ventilator 12/17/16 10:14 Pulse Ox 100 O2 Delivery Ventilator Intake and Output 12/16/16 12/16/16 12/17/16 15:00 23:00 07:00 Intake Total 0 ml 2737 ml 2516.6 ml Output Total 370 ml 690 ml 990 ml Balance -370 ml 2047 ml 1526.6 ml SANDRA PATTERSON MD Dec 17, 2016 10:22
[2016-12-17] MEDS: VANCOMYCIN PER PHARMACY MC PRN (10:47)
[2016-12-17 10:58] LABS: FIO2 ABG 35
[2016-12-17] MEDS: hydrALAZINE 20 MG/ML VIAL. IVP PRN (13:15)
[2016-12-17 14:00] LABS: HEMATOCRIT 37.6 % (39.0-53.0); HEMOGLOBIN 12.5 g/dL (13.0-17.5); RED BLOOD COUNT 3.82 x10^6/uL (4.30-5.70); RED CELL DISTRIBUTION WIDTH 12.7 % (11.5-14.5); WHITE BLOOD COUNT 12.7 x10^3/uL (4.0-11.0)
[2016-12-17 14:24] LABS: CALCIUM 8.7 mg/dL (8.5-10.1); CREATININE 0.6 mg/dL (0.7-1.3); GFR 136.5
[2016-12-17] MEDS ORDERED: POTASSIUM CHLORIDE 20 MEQ TABLET.ER. PO ONE (18:15)
[2016-12-17] MEDS: POTASSIUM CHLORIDE 20MEQ 50 ML IV SCH (21:54)
--- NOTE | 2016-12-17 23:33 | PDOC ---
PROGRESS NOTES Subjective Subjective patient seen at 1100 remains intubated Objective Objective Vital Signs Date Time Temp Pulse Resp B/P Pulse Ox O2 Delivery O2 Flow Rate FiO2 12/17/16 23:00 88 23 125/77 97 Ventilator 12/17/16 20:00 100.0 100.0 Intake and Output 12/17/16 07:00 Intake Total 5253.6 ml Output Total 2050 ml Balance 3203.6 ml Intake Oral 0 ml IV Total 5213.6 ml Other 40 ml Output Urine Total 2000 ml Gastric Drainage Total 50 ml Physical Exam HEENT: Other (pupils equal and round) Neuro: Other (localized with right side) Skin: Other (dressing intact, ICP 3) Assessment Assessment Problems Medical Problems: (1) Intraparenchymal hematoma of brain Status: Acute Plan Plan of Care wean from vent as tolerated d/w family scd/ teds Comment Review of Relevant I have reviewed the following items jose alfredo (where applicable) has been applied. Labs Laboratory Tests Test 12/15/16 23:35 12/16/16 06:35 12/16/16 08:00 12/17/16 08:00 Nasal Screen MRSA (PCR) Negative (Negative) White Blood Count 8.7x10^3/uL (4.0-11.0) Red Blood Count 3.86x10^6/uL (4.30-5.70) Hemoglobin 12.7g/dL (13.0-17.5) Hematocrit 37.5% (39.0-53.0) Mean Corpuscular Volume 97fL (79-100) Mean Corpuscular Hemoglobin 33pg (25-35) Mean Corpuscular Hemoglobin Concent 34g/dL (31-37) Red Cell Distribution Width 13.0% (11.5-14.5) Platelet Count 205x10^3/uL (140-400) Neutrophils (%) (Auto) 77% (31-73) Lymphocytes (%) (Auto) 11% (24-48) Monocytes (%) (Auto) 12% (0-9) Eosinophils (%) (Auto) 0% (0-3) Basophils (%) (Auto) 1% (0-3) Neutrophils # (Auto) 6.6x10^3uL (1.8-7.7) Lymphocytes # (Auto) 1.0x10^3/uL (1.0-4.8) Monocytes # (Auto) 1.0x10^3/uL (0.0-1.1) Eosinophils # (Auto) 0.0x10^3/uL (0.0-0.7) Basophils # (Auto) 0.0x10^3/uL (0.0-0.2) Sodium Level 131mmol/L (136-145) Potassium Level 3.5mmol/L (3.5-5.1) Chloride Level 99mmol/L (98-107) Carbon Dioxide Level 23mmol/L (21-32) Anion Gap 9 (6-14) Blood Urea Nitrogen 9mg/dL (8-26) Creatinine 0.7mg/dL (0.7-1.3) Estimated GFR (Cockcroft-Gault) 114.3 Glucose Level 155mg/dL (70-99) Calcium Level 8.7mg/dL (8.5-10.1) O2 Saturation 98% (92-99) 98% (92-99) Arterial Blood pH 7.54 (7.35-7.45) 7.48 (7.35-7.45) Arterial Blood pCO2 at Patient Temp 26mmHg (35-46) 28mmHg (35-46) Arterial Blood pO2 at Patient Temp 120mmHg (65-108) 117mmHg (65-108) Arterial Blood HCO3 22mmol/L (21-28) 20mmol/L (21-28) Arterial Blood Base Excess 1mmol/L (-3-3) -2mmol/L (-3-3) FiO2 35 35 Test 12/17/16 13:50 White Blood Count 12.7x10^3/uL (4.0-11.0) Red Blood Count 3.82x10^6/uL (4.30-5.70) Hemoglobin 12.5g/dL (13.0-17.5) Hematocrit 37.6% (39.0-53.0) Mean Corpuscular Volume 98fL (79-100) Mean Corpuscular Hemoglobin 33pg (25-35) Mean Corpuscular Hemoglobin Concent 33g/dL (31-37) Red Cell Distribution Width 12.7% (11.5-14.5) Platelet Count 160x10^3/uL (140-400) Sodium Level 136mmol/L (136-145) Potassium Level 3.0mmol/L (3.5-5.1) Chloride Level 104mmol/L (98-107) Carbon Dioxide Level 22mmol/L (21-32) Anion Gap 10 (6-14) Blood Urea Nitrogen 7mg/dL (8-26) Creatinine 0.6mg/dL (0.7-1.3) Estimated GFR (Cockcroft-Gault) 136.5 Glucose Level 129mg/dL (70-99) Calcium Level 8.7mg/dL (8.5-10.1) Laboratory Tests Test 12/17/16 08:00 12/17/16 13:50 O2 Saturation 98% (92-99) Arterial Blood pH 7.48 (7.35-7.45) Arterial Blood pCO2 at Patient Temp 28mmHg (35-46) Arterial Blood pO2 at Patient Temp 117mmHg (65-108) Arterial Blood HCO3 20mmol/L (21-28) Arterial Blood Base Excess -2mmol/L (-3-3) FiO2 35 White Blood Count 12.7x10^3/uL (4.0-11.0) Red Blood Count 3.82x10^6/uL (4.30-5.70) Hemoglobin 12.5g/dL (13.0-17.5) Hematocrit 37.6% (39.0-53.0) Mean Corpuscular Volume 98fL (79-100) Mean Corpuscular Hemoglobin 33pg (25-35) Mean Corpuscular Hemoglobin Concent 33g/dL (31-37) Red Cell Distribution Width 12.7% (11.5-14.5) Platelet Count 160x10^3/uL (140-400) Sodium Level 136mmol/L (136-145) Potassium Level 3.0mmol/L (3.5-5.1) Chloride Level 104mmol/L (98-107) Carbon Dioxide Level 22mmol/L (21-32) Anion Gap 10 (6-14) Blood Urea Nitrogen 7mg/dL (8-26) Creatinine 0.6mg/dL (0.7-1.3) Estimated GFR (Cockcroft-Gault) 136.5 Glucose Level 129mg/dL (70-99) Calcium Level 8.7mg/dL (8.5-10.1) Medications Current Medications Multivitamins/ Minerals/Folic Acid/Thiamine HCl/ Sodium Chloride (Infuvite Adult / Iv Sodium Chloride 0.9% 1000ml Bag) 1,011.2 ml @ 1,000 mls/ hr 1X ONCE IV Last administered on 12/15/16 18:53; Start 12/15/16 at 18:45; Stop 12/15/16 at 19: 45; Status DC Ondansetron HCl 4 mg 4 mg 1X ONCE IV ; Start 12/15/16 at 18:45; Stop 12/15/16 at 18:46; Status DC Propofol 0 ml @ As Directed STK-MED ONCE IV ; Start 12/15/16 at 19:57; Stop at 19:58; Status DC Propofol (Diprivan) 50 ml @ As Directed STK-MED ONCE IV ; Start 12/15/16 at 19:57 ; Stop 12/15/16 at 19:58; Status DC Lidocaine HCl 100 mg STK-MED ONCE .ROUTE ; Start 12/15/16 at 20:45; Stop 12/15/16 at 20:46; Status DC Fentanyl Citrate (Fentanyl 2ml Vial) 100 mcg STK-MED ONCE .ROUTE ; Start at 20:46; Stop 12/15/16 at 20:47; Status DC Rocuronium [place] (Zemuron) 50 mg STK-MED ONCE .ROUTE ; Start 12/15/16 at 20:46 ; Stop 12/15/16 at 20:47; Status DC Ondansetron HCl 4 mg 4 mg PRN Q8HRS PRN IV NAUSEA/VOMITING; Start 12/15/16 at 20 :45; Stop 12/15/16 at 23:44; Status DC Sodium Chloride (Iv Sodium Chloride 0.9% 1000ml Bag) 1,000 ml @ 100 mls/hr Q10H IV Last administered on 12/15/16 21:20; Start 12/15/16 at 20:45; Stop 12/16 at 07:25; Status DC Acetaminophen (Tylenol) 650 mg PRN Q4HRS PRN PO FEVER Last administered on 12/16 16:43; Start 12/15/16 at 20:45; Stop 12/16/16 at 20:44; Status DC Etomidate (Amidate) 20 mg 1X ONCE IV Last administered on 12/15/16 19:51; Start 12/15/16 at 20:45; Stop 12/15/16 at 20:53; Status DC Succinylcholine Chloride 100 mg 100 mg 1X ONCE IV Last administered on 19:52; Start 12/15/16 at 20:45; Stop 12/15/16 at 20:53; Status DC Bacitracin/Sodium Chloride (Iv Sodium Chloride 0.9% 1000ml Bag) 1,000 ml @ 1, 000 mls/hr 1X PERIOP ONCE IRR Last administered on 12/15/16 22:05; Start at 21:00; Stop 12/15/16 at 21:59; Status DC Cellulose 1 each STK-MED ONCE .ROUTE Last administered on 12/15/16 22:05; Start 12/15/16 at 20:58; Stop 12/15/16 at 20:59; Status DC Bupivacaine HCl/ Epinephrine Bitart (Sensorcain-Mpf Epi 0.5%-1:[id number]) 30 ml STK -MED ONCE .ROUTE Last administered on 12/15/16 22:05; Start 12/15/16 at 20:58; Stop 12/15/16 at 20:59; Status DC Gelatin (Gelfoam Size 100) 1 each STK-MED ONCE .ROUTE Last administered on 12/15 22:05; Start 12/15/16 at 20:58; Stop 12/15/16 at 20:59; Status DC Thrombin 00933 unit 20,000 unit STK-MED ONCE TP Last administered on 12/15/16 22:05; Start 12/15/16 at 20:58; Stop 12/15/16 at 20:59; Status DC Propofol (Diprivan) 20 ml @ As Directed STK-MED ONCE IV ; Start 12/15/16 at 21:06 ; Stop 12/15/16 at 21:07; Status DC Desflurane 60 ml 60 ml STK-MED ONCE IH ; Start 12/15/16 at 21:49; Stop 12/15/16 at 21:50; Status DC Cefazolin Sodium/ Dextrose 50 ml @ As Directed STK-MED ONCE IV ; Start 12/15/16 at 21:52; Stop 12/15/16 at 21:53; Status DC Mannitol (Mannitol Iv Soln) 500 ml @ As Directed STK-MED ONCE IV ; Start at 21:53; Stop 12/15/16 at 21:54; Status DC Phenylephrine HCl 1 mg 1 mg STK-MED ONCE IV ; Start 12/15/16 at 21:55; Stop at 21:56; Status DC Levetiracetam/ Sodium Chloride (Keppra/Iv Sodium Chloride 0.9% 100ml) 100 ml @ 400 mls/hr 1X ONCE IV Last administered on 12/15/16t 22:30; Start 12/15/16 at 22 :15; Stop 12/15/16 at 22:29; Status DC Ondansetron HCl (Zofran) 4 mg PRN Q6HRS PRN IV Nausea; Start 12/15/16 at 22:30; Stop 12/16/16 at 14:48; Status DC Fentanyl Citrate (Fentanyl 2ml Vial) 25 mcg PRN Q5MIN PRN IV MILD PAIN; Start 12/15/16 at 22:30; Stop 12/16/16 at 13:00; Status DC Fentanyl Citrate (Fentanyl 2ml Vial) 50 mcg PRN Q5MIN PRN IV MODERATE PAIN; Start 12/15/16 at 22:30; Stop 12/16/16 at 13:00; Status DC Morphine Sulfate 1 mg 1 mg PRN Q10MIN PRN IV SEVERE PAIN; Start 12/15/16 at 22: 30; Stop 12/16/16 at 13:08; Status DC Lactated Ringer's (Iv Lactated Ringers) 1,000 ml @ 0 mls/hr Q0M IV ; Start 12/15 at 22:30; Stop 12/16/16 at 13:08; Status DC Lidocaine HCl 2 ml 1X PRN PRN ID IV START; Start 12/15/16 at 22:30; Stop at 13:08; Status DC Hydromorphone HCl (Dilaudid) 0.5 mg PRN Q10MIN PRN IV SEV PAIN,Second choice; Start 12/15/16 at 22:30; Stop 12/16/16 at 13:01; Status DC Prochlorperazine Edisylate 5 mg 5 mg PACU PRN PRN IV NAUSEA; Start 12/15/16 at 22:30; Stop 12/16/16 at 13:08; Status DC Propofol 100 ml @ As Directed STK-MED ONCE IV ; Start 12/15/16 at 23:13; Stop at 23:14; Status DC Nicardipine HCl/ Sodium Chloride (Cardene/Iv Sodium Chloride 0.9% 250ml) 270 ml @ 27 mls/hr TITRATE PRN IV PER PROTOCOL; Start 12/15/16 at 23:30 Diphenhydramine HCl (Benadryl) 25 mg PRN Q6HRS PRN PO ITCHING; Start 12/15/16 at 23:30 Diphenhydramine HCl 25 mg 25 mg PRN Q6HRS PRN IV ITCHING; Start 12/15/16 at 23: 30 Levetiracetam/ Sodium Chloride (Keppra/Iv Sodium Chloride 0.9% 100ml) 105 ml @ 400 mls/hr Q12HR IV Last administered on 12/17/16 08:52; Start 12/16/16 at 09: 00 Sodium Chloride (Normal Saline Flush) 3 ml QSHIFT PRN IV AFTER MEDS AND BLOOD DRAWS; Start 12/15/16 at 23:30 Dextrose 12.5 gm PRN Q15MIN PRN IV SEE COMMENTS; Start 12/15/16 at 23:30 Magnesium Hydroxide (Milk Of Magnesia) 2,400 mg PRN Q12HR PRN PO CONSTIPATION; Start 12/15/16 at 23:30 Ondansetron HCl 4 mg 4 mg PRN Q6HRS PRN IV NAUESA, 1ST CHOICE; Start 12/15/16 at 23:30 Cefazolin Sodium 1 gm/Sodium Chloride 50 ml @ 100 mls/hr Q8HRS IV Last administered on 12/16/16 21:05; Start 12/16/16 at 06:00; Stop 12/16/16 at 22:29 ; Status DC Potassium Chloride/Dextrose/ Sod Cl (KCl 20 Meq In D5W-1/2 NS) 1,000 ml @ 75 mls/hr [id number] IV Last administered on 12/17/16 15:34; Start 12/15/16 at 23:30 Fentanyl Citrate (Fentanyl 2ml Vial) 25 mcg PRN Q1HR PRN IV PAIN Last administered on 12/16/16 16:42; Start 12/15/16 at 23:30 Fentanyl Citrate (Fentanyl 2ml Vial) 50 mcg PRN Q1HR PRN IV PAIN Last administered on 12/17/16 18:41; Start 12/15/16 at 23:30 Info (Do NOT chart on this placeholder) 1 each 1X ONCE MC ; Start 12/16/16 at 04:00; Stop 12/16/16 at 04:01; Status UNV Pneumococcal Polyvalent Vaccine (Do NOT chart on this placeholder) 1 each 1X ONCE MC ; Start 12/16/16 at 04:00; Stop 12/16/16 at 04:01; Status UNV Influenza Virus Vaccine Quadrival (Fluarix Quad [id number] Syringe) 0.5 ml ONCE ONCE VAX IM Last administered on 12/17/16 08:49; Start 12/16/16 at 09:00; Stop 12/16/16 at 09:01; Status DC Pneumococcal Polyvalent Vaccine 0.5 ml 0.5 ml ONCE ONCE VAX IM Last administered on 12/17/16 08:47; Start 12/16/16 at 09:00; Stop 12/16/16 at 09:01 ; Status DC Propofol 100 ml @ 0 mls/hr CONT PRN IV SEE I/O RECORD Last administered on 12/17 19:43; Start 12/16/16 at 04:30 Propofol 100 ml @ 0 mls/hr CONT PRN IV SEE I/O RECORD; Start 12/16/16 at 00:00 ; Stop 12/16/16 at 03:00; Status Cancel Propofol 100 ml @ 0 mls/hr CONT PRN IV SEE I/O RECORD Last administered on 20:00; Start 12/16/16 at 00:00; Stop 12/16/16 at 09:04; Status DC Multivitamins/ Minerals/Thiamine HCl/Folic Acid/ Sodium Chloride (Infuvite Adult / Iv Sodium Chloride 0.9% 1000ml Bag) 1,011.2 ml @ 100 mls/ hr DAILY IV Last administered on 12/17/16 08:42; Start 12/16/16 at 10:00; Stop 12/22/16 at 09:59 Lorazepam (Ativan) 2 mg PRN Q1HR PRN IV For CIWA 8-14; Start 12/16/16 at 10:00 Lorazepam (Ativan) 4 mg PRN Q1HR PRN IV For CIWA 15 or greater; Start 12/16/16 at 10:00 Piperacillin Sod/ Tazobactam Sod (Zosyn Per Pharmacy) 1 each PRN DAILY PRN MC SEE COMMENTS; Start 12/16/16 at 10:30 Vancomycin HCl 1 each 1 each PRN DAILY PRN MC SEE COMMENTS Last administered on 12/17/16 10:47; Start 12/16/16 at 10:30 Vancomycin HCl 1.5 gm/Sodium Chloride 500 ml @ 250 mls/hr 1X ONCE IV Last administered on 12/16/16 14:08; Start 12/16/16 at 11:00; Stop 12/16/16 at 12:59 ; Status DC Piperacillin Sod/ Tazobactam Sod/ Sodium Chloride (Zosyn/Iv Sodium Chloride 0.9 % 100ml) 100 ml @ 200 mls/hr Q6HRS IV Last administered on 12/17/16 17:52; Start 12/16/16 at 12:00 Propofol 1000 mg 1,000 mg STK-MED ONCE IV ; Start 12/15/16 at 23:00; Stop at 13:28; Status DC Vancomycin HCl/ Sodium Chloride (Iv Sodium Chloride 0.9% 250ml) 250 ml @ 250 mls/hr Q12H IV Last administered on 12/17/16 14:13; Start 12/17/16 at 02:00 Vancomycin HCl 1 each 1X ONCE MC ; Start 12/18/16 at 01:30; Stop 12/18/16 at 01 :31 Hydralazine HCl (Apresoline) 10 mg PRN Q4HRS PRN IVP ELEVATED BP, SEE COMMENTS Last administered on 12/17/16 13:15; Start 12/17/16 at 12:15 Potassium Chloride 40 meq 40 meq 1X ONCE PO ; Start 12/17/16 at 18:15; Stop 09/22 at 18:16; Status Cancel Potassium Chloride (KCl Premix 20meq) 50 ml @ 50 mls/hr Q1H IV Last administered on 12/17/16 21:54; Start 12/17/16 at 19:00; Stop 12/17/16 at 20:59 ; Status DC Active Scripts Active Reported Benazepril Hcl 40 Mg Tablet 1 Tab PO DAILY Amlodipine Besylate 5 Mg Tablet 5 Mg PO DAILY Vitals/I & O Vital Sign - Last 24 Hours 12/17/16 12/17/16 12/17/16 12/17/16 00:00 00:00 00:00 01:00 Temp 99.6 99.6 Pulse 71 73 Resp 18 18 B/P 127/55 139/61 Pulse Ox 100 100 O2 Delivery Ventilator Mechanical Ventilator Ventilator 12/17/16 12/17/16 12/17/16 12/17/16 01:37 02:00 02:41 03:00 Pulse 74 75 Resp 18 18 18 B/P 124/56 94/51 Pulse Ox 100 100 100 100 O2 Delivery Ventilator Ventilator Ventilator Ventilator 12/17/16 12/17/16 12/17/16 12/17/16 03:50 04:00 04:00 04:00 Pulse 66 Resp 18 B/P 90/51 Pulse Ox 100 100 O2 Delivery Ventilator Mechanical Ventilator Ventilator 12/17/16 12/17/16 12/17/16 12/17/16 05:00 05:47 06:00 07:00 Pulse 72 71 73 Resp 18 18 18 B/P 97/54 148/62 121/62 Pulse Ox 100 100 100 100 O2 Delivery Ventilator Ventilator Ventilator Ventilator 12/17/16 12/17/16 12/17/16 12/17/16 08:00 08:00 08:00 09:00 Temp 99.3 99.3 Pulse 69 69 71 Resp 18 18 B/P 102/94 102/94 147/66 Pulse Ox 100 100 O2 Delivery Ventilator Mechanical Ventilator Ventilator 12/17/16 12/17/16 12/17/16 12/17/16 10:00 10:14 11:00 12:00 Pulse 72 85 Resp 18 18 B/P 141/67 160/89 Pulse Ox 95 100 100 O2 Delivery Ventilator Ventilator Ventilator Mechanical Ventilator 12/17/16 12/17/16 12/17/16 12/17/16 12:00 12:00 12:11 13:00 Temp 99.5 99.5 Pulse 72 72 115 Resp 18 30 B/P 161/89 161/89 163/90 Pulse Ox 100 99 100 O2 Delivery Ventilator Ventilator Ventilator 12/17/16 12/17/16 12/17/1617 13:15 14:00 15:00 15:33 Temp 100.3 100.3 Pulse 113 114 81 Resp 32 21 31 B/P 163/90 136/66 97/46 Pulse Ox 99 90 95 O2 Delivery Ventilator Ventilator Ventilator 12/17/16 12/17/16 12/17/16 12/17/16 15:50 16:00 16:00 16:00 Pulse 77 77 Resp 20 B/P 105/53 105/53 Pulse Ox 99 93 O2 Delivery Ventilator Ventilator Mechanical Ventilator 12/17/16 12/17/16 12/17/16 12/17/16 16:10 16:59 17:09 17:14 Pulse 116 Resp 30 29 B/P 141/72 Pulse Ox 94 99 92 O2 Delivery Ventilator Ventilator Ventilator Ventilator 12/17/16 12/17/16 12/17/16 12/17/16 18:00 18:41 19:00 19:00 Pulse 92 82 Resp 21 29 30 18 B/P 132/99 104/64 Pulse Ox 95 86 92 96 O2 Delivery Ventilator Ventilator Ventilator 12/17/16 12/17/16 12/17/16 12/17/16 19:58 20:00 20:00 20:00 Temp 100.0 100.0 Pulse 104 104 Resp 31 B/P 130/78 130/78 Pulse Ox 92 92 O2 Delivery Ventilator Ventilator Mechanical Ventilator 12/17/16 12/17/16 12/17/16 21:00 22:00 23:00 Pulse 86 85 88 Resp 20 18 23 B/P 105/65 128/92 125/77 Pulse Ox 97 97 97 O2 Delivery Ventilator Ventilator Ventilator Intake and Output 12/16/16 12/16/16 12/17/16 15:00 23:00 07:00 Intake Total 0 ml 2737 ml 2516.6 ml Output Total 370 ml 690 ml 990 ml Balance -370 ml 2047 ml 1526.6 ml NALLELY MILLAN MD Dec 17, 2016 23:33
[2016-12-18] VITALS (24 sets, daily range): BP systolic 95–163; BP diastolic 54–93
[2016-12-18] MEDS: LEVETIRACETAM 500 MG in IV NORMAL SALINE 100ML 100 ML IV SCH ×3 (00:11→21:38)
[2016-12-18] MEDS: POTASSIUM CHLORIDE 20MEQ 50 ML IV SCH (00:55)
[2016-12-18] MEDS: PROPOFOL 100 ML IV PRN ×2 (01:52→15:33)
[2016-12-18] MEDS: VANCOMYCIN 1 GM in IV NORMAL SALINE 250ML 250 ML IV SCH (02:00)
[2016-12-18] MEDS: PIPERACILLIN/TAZOBACTAM 4.5 GM in IV NORMAL SALINE 100ML 100 ML IV SCH ×2 (03:12→05:11)
[2016-12-18] MEDS: POTASSIUM CL 20MEQ D5-0.45NACL 1,000 ML IV SCH ×2 (03:59→18:18)
[2016-12-18] MEDS ORDERED: VANCOMYCIN 1 GM in IV NORMAL SALINE 250ML 250 ML IV SCH (04:00)
[2016-12-18] MEDS: VANCOMYCIN PER PHARMACY MC PRN (04:00)
--- NOTE | 2016-12-18 07:00 | PDOC ---
PULMONARY PROGRESS NOTES Subjective on vent, sedated, off sedation, didnt follow commands yesterday, small ett secretion Vitals Vital Signs Date Time Temp Pulse Resp B/P Pulse Ox O2 Delivery O2 Flow Rate FiO2 12/18/16 06:00 73 18 107/66 99 Ventilator 12/18/16 04:00 98.1 98.1 Comments mohini mckinney w rn, as mentioned as above, other sys otherwise neg lymphatics no lap HEENT: Other (s/p crani, perrl, orally intubated, nose clear. ) Lungs: Wheezing Cardiovascular: S1, S2 Abdomen: Soft, Non-tender, Other (no mass) Extremities: No Edema Skin: Warm Labs Laboratory Tests Test 12/16/16 08:00 12/17/16 08:00 12/17/16 13:50 12/18/16 01:50 O2 Saturation 98% (92-99) 98% (92-99) Arterial Blood pH 7.54 (7.35-7.45) 7.48 (7.35-7.45) Arterial Blood pCO2 at Patient Temp 26mmHg (35-46) 28mmHg (35-46) Arterial Blood pO2 at Patient Temp 120mmHg (65-108) 117mmHg (65-108) Arterial Blood HCO3 22mmol/L (21-28) 20mmol/L (21-28) Arterial Blood Base Excess 1mmol/L (-3-3) -2mmol/L (-3-3) FiO2 35 35 White Blood Count 12.7x10^3/uL (4.0-11.0) Red Blood Count 3.82x10^6/uL (4.30-5.70) Hemoglobin 12.5g/dL (13.0-17.5) Hematocrit 37.6% (39.0-53.0) Mean Corpuscular Volume 98fL (79-100) Mean Corpuscular Hemoglobin 33pg (25-35) Mean Corpuscular Hemoglobin Concent 33g/dL (31-37) Red Cell Distribution Width 12.7% (11.5-14.5) Platelet Count 160x10^3/uL (140-400) Sodium Level 136mmol/L (136-145) Potassium Level 3.0mmol/L (3.5-5.1) Chloride Level 104mmol/L (98-107) Carbon Dioxide Level 22mmol/L (21-32) Anion Gap 10 (6-14) Blood Urea Nitrogen 7mg/dL (8-26) Creatinine 0.6mg/dL (0.7-1.3) Estimated GFR (Cockcroft-Gault) 136.5 Glucose Level 129mg/dL (70-99) Calcium Level 8.7mg/dL (8.5-10.1) Vancomycin Level Trough 2.5mcg/mL (10.0-20.0) Vancomycin Last Dose Date Vancomycin Last Dose Time Laboratory Tests Test 12/17/16 08:00 12/17/16 13:50 12/18/16 01:50 O2 Saturation 98% (92-99) Arterial Blood pH 7.48 (7.35-7.45) Arterial Blood pCO2 at Patient Temp 28mmHg (35-46) Arterial Blood pO2 at Patient Temp 117mmHg (65-108) Arterial Blood HCO3 20mmol/L (21-28) Arterial Blood Base Excess -2mmol/L (-3-3) FiO2 35 White Blood Count 12.7x10^3/uL (4.0-11.0) Red Blood Count 3.82x10^6/uL (4.30-5.70) Hemoglobin 12.5g/dL (13.0-17.5) Hematocrit 37.6% (39.0-53.0) Mean Corpuscular Volume 98fL (79-100) Mean Corpuscular Hemoglobin 33pg (25-35) Mean Corpuscular Hemoglobin Concent 33g/dL (31-37) Red Cell Distribution Width 12.7% (11.5-14.5) Platelet Count 160x10^3/uL (140-400) Sodium Level 136mmol/L (136-145) Potassium Level 3.0mmol/L (3.5-5.1) Chloride Level 104mmol/L (98-107) Carbon Dioxide Level 22mmol/L (21-32) Anion Gap 10 (6-14) Blood Urea Nitrogen 7mg/dL (8-26) Creatinine 0.6mg/dL (0.7-1.3) Estimated GFR (Cockcroft-Gault) 136.5 Glucose Level 129mg/dL (70-99) Calcium Level 8.7mg/dL (8.5-10.1) Vancomycin Level Trough 2.5mcg/mL (10.0-20.0) Vancomycin Last Dose Date Vancomycin Last Dose Time Medications Active Scripts Medications Dose Route/Sig Days Date Category Benazepril Hcl 40 Mg Tablet 1 Tab PO DAILY 12/16/16 Reported Amlodipine Besylate 5 Mg Tablet 5 Mg PO DAILY 12/16/16 Reported Comments cxr, reviewed, ett ok, no infilt Impression . IMPRESSION: 1. Acute respiratory failure secondary to acute toxic encephalopathy. 2. 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 3. Underlying chronic obstructive pulmonary disease, unknown FEV1, smoked for 40 years. 4. Underlying alcoholism. 5. Respiratory alkalosis on the ventilator. 6. Postop fever, resolved Plan . RECOMMENDATIONS: 1. Continue vent support, vent setting reviewed, will do sbt when awake 2. Repeat CT head per Neurosurgery recommendation. 3. elevate hob 4. Consider adding empiric antibiotics. 5. Watch for DTs. 6. Bronchodilators. 7. SCDs for deep vein thrombosis prophylaxis. 8. Stress ulcer prophylaxis. 9. Bronchodilators, add ics. 10. dc abx, will monitor off abx Discussed with rn, rt EMERALD IBARRA MD Dec 18, 2016 06:59
[2016-12-18 07:04] LABS: ALBUMIN/GLOBULIN RATIO 0.8 (1.0-1.7); CALCIUM 7.2 mg/dL (8.5-10.1); CREATININE 0.5 mg/dL (0.7-1.3); GFR 168.5; TOTAL BILIRUBIN 0.9 mg/dL (0.2-1.0); TOTAL PROTEIN 4.6 g/dL (6.4-8.2)
[2016-12-18] MEDS: BUDESONIDE 0.5 MG/2 ML NEBU NEB SCH ×2 (08:00→19:56)
[2016-12-18] MEDS: MVI, ADULT NO.4 WITH VIT K 10 ML, THIAMINE 100 MG, FOLIC ACID 1 MG in IV NORMAL SALINE ... IV SCH ×4 (08:04)
[2016-12-18 08:59] LABS: HCO3 ABG 21 mmol/L (21-28); PCO2 ABG 27 mmHg (35-46); PH ABG 7.51 (7.35-7.45); PO2 ABG 77 mmHg (65-108); SAT O2 ABG 95 % (92-99)
[2016-12-18 09:05] LABS: FIO2 ABG 35
--- NOTE | 2016-12-18 10:23 | PDOC ---
PROGRESS NOTES Chief Complaint Chief Complaint cc: ams A/P Right frontal craniotomy with evacuation of intracerebral hematoma and placement of external ventricular drain in the right lateral ventricle.POD 3 Alcohol abuse Respiratory failure on Mechanical ventilation Elective Encephalopathy due to above Leucocytosis better Hyponatremia labs pending fever resolved. Plan On mechanical ventilation, off sedation, try SBT [facility] protocol for alcohol withdrawal precaution Stop abx if Pulmonolgy agrees, no sings of infection seen. NS following Keppra for seizure precautions BP goal < SBP 130 Replace IV potassium and Magnesium GI prophylaxis NO dvt prophylaxis Tube feeds labs reviwed family at bedside, all questions answered prognosis guarded. History of Present Illness History of Present Illness intubated. Vitals Vitals Vital Signs Date Time Temp Pulse Resp B/P Pulse Ox O2 Delivery O2 Flow Rate FiO2 12/18/16 10:00 66 5 123/69 100 Ventilator 12/18/16 08:00 98.7 98.7 Physical Exam General: Other (sedated and intubated. ) Heart: Normal S1, Normal S2 Lungs: Clear Abdomen: Normal bowel sounds, Soft Extremities: No clubbing, No cyanosis Skin: Other (dressing intact, ICP 3) Labs LABS Laboratory Tests Test 12/17/16 13:50 12/18/16 01:50 12/18/16 05:00 12/18/16 08:08 White Blood Count 12.7x10^3/uL (4.0-11.0) Red Blood Count 3.82x10^6/uL (4.30-5.70) Hemoglobin 12.5g/dL (13.0-17.5) Hematocrit 37.6% (39.0-53.0) Mean Corpuscular Volume 98fL (79-100) Mean Corpuscular Hemoglobin 33pg (25-35) Mean Corpuscular Hemoglobin Concent 33g/dL (31-37) Red Cell Distribution Width 12.7% (11.5-14.5) Platelet Count 160x10^3/uL (140-400) Sodium Level 136mmol/L (136-145) 141mmol/L (136-145) Potassium Level 3.0mmol/L (3.5-5.1) 3.0mmol/L (3.5-5.1) Chloride Level 104mmol/L (98-107) 110mmol/L (98-107) Carbon Dioxide Level 22mmol/L (21-32) 19mmol/L (21-32) Anion Gap 10 (6-14) 12 (6-14) Blood Urea Nitrogen 7mg/dL (8-26) 10mg/dL (8-26) Creatinine 0.6mg/dL (0.7-1.3) 0.5mg/dL (0.7-1.3) Estimated GFR (Cockcroft-Gault) 136.5 168.5 Glucose Level 129mg/dL (70-99) 93mg/dL (70-99) Calcium Level 8.7mg/dL (8.5-10.1) 7.2mg/dL (8.5-10.1) Vancomycin Level Trough 2.5mcg/mL (10.0-20.0) Vancomycin Last Dose Date Vancomycin Last Dose Time BUN/Creatinine Ratio 20 (6-20) Magnesium Level 1.5mg/dL (1.8-2.4) Total Bilirubin 0.9mg/dL (0.2-1.0) Aspartate Amino Transf (AST/SGOT) 44U/L (15-37) Alanine Aminotransferase (ALT/SGPT) 22U/L (16-63) Alkaline Phosphatase 29U/L (46-116) Total Protein 4.6g/dL (6.4-8.2) Albumin 2.0g/dL (3.4-5.0) Albumin/Globulin Ratio 0.8 (1.0-1.7) O2 Saturation 95% (92-99) Arterial Blood pH 7.51 (7.35-7.45) Arterial Blood pCO2 at Patient Temp 27mmHg (35-46) Arterial Blood pO2 at Patient Temp 77mmHg (65-108) Arterial Blood HCO3 21mmol/L (21-28) Arterial Blood Base Excess -1mmol/L (-3-3) FiO2 35 Assessment and Plan Assessmemt and Plan Problems Medical Problems: (1) Intraparenchymal hematoma of brain Status: Acute Problems: Comment Review of Relevant I have reviewed the following items jose alfredo (where applicable) has been applied. Labs Laboratory Tests Test 12/17/16 08:00 12/17/16 13:50 12/18/16 01:50 12/18/16 05:00 O2 Saturation 98% (92-99) Arterial Blood pH 7.48 (7.35-7.45) Arterial Blood pCO2 at Patient Temp 28mmHg (35-46) Arterial Blood pO2 at Patient Temp 117mmHg (65-108) Arterial Blood HCO3 20mmol/L (21-28) Arterial Blood Base Excess -2mmol/L (-3-3) FiO2 35 White Blood Count 12.7x10^3/uL (4.0-11.0) Red Blood Count 3.82x10^6/uL (4.30-5.70) Hemoglobin 12.5g/dL (13.0-17.5) Hematocrit 37.6% (39.0-53.0) Mean Corpuscular Volume 98fL (79-100) Mean Corpuscular Hemoglobin 33pg (25-35) Mean Corpuscular Hemoglobin Concent 33g/dL (31-37) Red Cell Distribution Width 12.7% (11.5-14.5) Platelet Count 160x10^3/uL (140-400) Sodium Level 136mmol/L (136-145) 141mmol/L (136-145) Potassium Level 3.0mmol/L (3.5-5.1) 3.0mmol/L (3.5-5.1) Chloride Level 104mmol/L (98-107) 110mmol/L (98-107) Carbon Dioxide Level 22mmol/L (21-32) 19mmol/L (21-32) Anion Gap 10 (6-14) 12 (6-14) Blood Urea Nitrogen 7mg/dL (8-26) 10mg/dL (8-26) Creatinine 0.6mg/dL (0.7-1.3) 0.5mg/dL (0.7-1.3) Estimated GFR (Cockcroft-Gault) 136.5 168.5 Glucose Level 129mg/dL (70-99) 93mg/dL (70-99) Calcium Level 8.7mg/dL (8.5-10.1) 7.2mg/dL (8.5-10.1) Vancomycin Level Trough 2.5mcg/mL (10.0-20.0) Vancomycin Last Dose Date Vancomycin Last Dose Time BUN/Creatinine Ratio 20 (6-20) Magnesium Level 1.5mg/dL (1.8-2.4) Total Bilirubin 0.9mg/dL (0.2-1.0) Aspartate Amino Transf (AST/SGOT) 44U/L (15-37) Alanine Aminotransferase (ALT/SGPT) 22U/L (16-63) Alkaline Phosphatase 29U/L (46-116) Total Protein 4.6g/dL (6.4-8.2) Albumin 2.0g/dL (3.4-5.0) Albumin/Globulin Ratio 0.8 (1.0-1.7) Test 12/18/16 08:08 O2 Saturation 95% (92-99) Arterial Blood pH 7.51 (7.35-7.45) Arterial Blood pCO2 at Patient Temp 27mmHg (35-46) Arterial Blood pO2 at Patient Temp 77mmHg (65-108) Arterial Blood HCO3 21mmol/L (21-28) Arterial Blood Base Excess -1mmol/L (-3-3) FiO2 35 Laboratory Tests Test 12/17/16 13:50 12/18/16 01:50 12/18/16 05:00 12/18/16 08:08 White Blood Count 12.7x10^3/uL (4.0-11.0) Red Blood Count 3.82x10^6/uL (4.30-5.70) Hemoglobin 12.5g/dL (13.0-17.5) Hematocrit 37.6% (39.0-53.0) Mean Corpuscular Volume 98fL (79-100) Mean Corpuscular Hemoglobin 33pg (25-35) Mean Corpuscular Hemoglobin Concent 33g/dL (31-37) Red Cell Distribution Width 12.7% (11.5-14.5) Platelet Count 160x10^3/uL (140-400) Sodium Level 136mmol/L (136-145) 141mmol/L (136-145) Potassium Level 3.0mmol/L (3.5-5.1) 3.0mmol/L (3.5-5.1) Chloride Level 104mmol/L (98-107) 110mmol/L (98-107) Carbon Dioxide Level 22mmol/L (21-32) 19mmol/L (21-32) Anion Gap 10 (6-14) 12 (6-14) Blood Urea Nitrogen 7mg/dL (8-26) 10mg/dL (8-26) Creatinine 0.6mg/dL (0.7-1.3) 0.5mg/dL (0.7-1.3) Estimated GFR (Cockcroft-Gault) 136.5 168.5 Glucose Level 129mg/dL (70-99) 93mg/dL (70-99) Calcium Level 8.7mg/dL (8.5-10.1) 7.2mg/dL (8.5-10.1) Vancomycin Level Trough 2.5mcg/mL (10.0-20.0) Vancomycin Last Dose Date Vancomycin Last Dose Time BUN/Creatinine Ratio 20 (6-20) Magnesium Level 1.5mg/dL (1.8-2.4) Total Bilirubin 0.9mg/dL (0.2-1.0) Aspartate Amino Transf (AST/SGOT) 44U/L (15-37) Alanine Aminotransferase (ALT/SGPT) 22U/L (16-63) Alkaline Phosphatase 29U/L (46-116) Total Protein 4.6g/dL (6.4-8.2) Albumin 2.0g/dL (3.4-5.0) Albumin/Globulin Ratio 0.8 (1.0-1.7) O2 Saturation 95% (92-99) Arterial Blood pH 7.51 (7.35-7.45) Arterial Blood pCO2 at Patient Temp 27mmHg (35-46) Arterial Blood pO2 at Patient Temp 77mmHg (65-108) Arterial Blood HCO3 21mmol/L (21-28) Arterial Blood Base Excess -1mmol/L (-3-3) FiO2 35 Medications Current Medications Multivitamins/ Minerals/Folic Acid/Thiamine HCl/ Sodium Chloride (Infuvite Adult / Iv Sodium Chloride 0.9% 1000ml Bag) 1,011.2 ml @ 1,000 mls/ hr 1X ONCE IV Last administered on 12/15/16t 18:53; Start 12/15/16 at 18:45; Stop 12/15/16 at 19: 45; Status DC Ondansetron HCl 4 mg 4 mg 1X ONCE IV ; Start 12/15/16 at 18:45; Stop 12/15/16 at 18:46; Status DC Propofol 0 ml @ As Directed STK-MED ONCE IV ; Start 12/15/16 at 19:57; Stop at 19:58; Status DC Propofol (Diprivan) 50 ml @ As Directed STK-MED ONCE IV ; Start 12/15/16 at 19:57 ; Stop 12/15/16 at 19:58; Status DC Lidocaine HCl 100 mg STK-MED ONCE .ROUTE ; Start 12/15/16 at 20:45; Stop 12/15/16 at 20:46; Status DC Fentanyl Citrate (Fentanyl 2ml Vial) 100 mcg STK-MED ONCE .ROUTE ; Start at 20:46; Stop 12/15/16 at 20:47; Status DC Rocuronium [place] (Zemuron) 50 mg STK-MED ONCE .ROUTE ; Start 12/15/16 at 20:46 ; Stop 12/15/16 at 20:47; Status DC Ondansetron HCl 4 mg 4 mg PRN Q8HRS PRN IV NAUSEA/VOMITING; Start 12/15/16 at 20 :45; Stop 12/15/16 at 23:44; Status DC Sodium Chloride (Iv Sodium Chloride 0.9% 1000ml Bag) 1,000 ml @ 100 mls/hr Q10H IV Last administered on 12/16/16 06:45; Start 12/15/16 at 20:45; Stop 08/22 at 07:25; Status DC Acetaminophen (Tylenol) 650 mg PRN Q4HRS PRN PO FEVER Last administered on 12/16 16:43; Start 12/15/16 at 20:45; Stop 12/16/16 at 20:44; Status DC Etomidate (Amidate) 20 mg 1X ONCE IV Last administered on 12/15/16 19:51; Start 12/15/16 at 20:45; Stop 12/15/16 at 20:53; Status DC Succinylcholine Chloride 100 mg 100 mg 1X ONCE IV Last administered on 19:52; Start 12/15/16 at 20:45; Stop 12/15/16 at 20:53; Status DC Bacitracin/Sodium Chloride (Iv Sodium Chloride 0.9% 1000ml Bag) 1,000 ml @ 1, 000 mls/hr 1X PERIOP ONCE IRR Last administered on 12/15/16 22:05; Start at 21:00; Stop 12/15/16 at 21:59; Status DC Cellulose 1 each STK-MED ONCE .ROUTE Last administered on 12/15/16 22:05; Start 12/15/16 at 20:58; Stop 12/15/16 at 20:59; Status DC Bupivacaine HCl/ Epinephrine Bitart (Sensorcain-Mpf Epi 0.5%-1:643003) 30 ml STK -MED ONCE .ROUTE Last administered on 12/15/16 22:05; Start 12/15/16 at 20:58; Stop 12/15/16 at 20:59; Status DC Gelatin (Gelfoam Size 100) 1 each STK-MED ONCE .ROUTE Last administered on 12/15 22:05; Start 12/15/16 at 20:58; Stop 12/15/16 at 20:59; Status DC Thrombin 95995 unit 20,000 unit STK-MED ONCE TP Last administered on 12/15/16 22:05; Start 12/15/16 at 20:58; Stop 12/15/16 at 20:59; Status DC Propofol (Diprivan) 20 ml @ As Directed STK-MED ONCE IV ; Start 12/15/16 at 21:06 ; Stop 12/15/16 at 21:07; Status DC Desflurane 60 ml 60 ml STK-MED ONCE IH ; Start 12/15/16 at 21:49; Stop 12/15/16 at 21:50; Status DC Cefazolin Sodium/ Dextrose 50 ml @ As Directed STK-MED ONCE IV ; Start 12/15/16 at 21:52; Stop 12/15/16 at 21:53; Status DC Mannitol (Mannitol Iv Soln) 500 ml @ As Directed STK-MED ONCE IV ; Start at 21:53; Stop 12/15/16 at 21:54; Status DC Phenylephrine HCl 1 mg 1 mg STK-MED ONCE IV ; Start 12/15/16 at 21:55; Stop at 21:56; Status DC Levetiracetam/ Sodium Chloride (Keppra/Iv Sodium Chloride 0.9% 100ml) 100 ml @ 400 mls/hr 1X ONCE IV Last administered on 12/15/16t 22:30; Start 12/15/16 at 22 :15; Stop 12/15/16 at 22:29; Status DC Ondansetron HCl (Zofran) 4 mg PRN Q6HRS PRN IV Nausea; Start 12/15/16 at 22:30; Stop 12/16/16 at 14:48; Status DC Fentanyl Citrate (Fentanyl 2ml Vial) 25 mcg PRN Q5MIN PRN IV MILD PAIN; Start 12/15/16 at 22:30; Stop 12/16/16 at 13:00; Status DC Fentanyl Citrate (Fentanyl 2ml Vial) 50 mcg PRN Q5MIN PRN IV MODERATE PAIN; Start 12/15/16 at 22:30; Stop 12/16/16 at 13:00; Status DC Morphine Sulfate 1 mg 1 mg PRN Q10MIN PRN IV SEVERE PAIN; Start 12/15/16 at 22: 30; Stop 12/16/16 at 13:08; Status DC Lactated Ringer's (Iv Lactated Ringers) 1,000 ml @ 0 mls/hr Q0M IV ; Start 12/15 at 22:30; Stop 12/16/16 at 13:08; Status DC Lidocaine HCl 2 ml 1X PRN PRN ID IV START; Start 12/15/16 at 22:30; Stop at 13:08; Status DC Hydromorphone HCl (Dilaudid) 0.5 mg PRN Q10MIN PRN IV SEV PAIN,Second choice; Start 12/15/16 at 22:30; Stop 12/16/16 at 13:01; Status DC Prochlorperazine Edisylate 5 mg 5 mg PACU PRN PRN IV NAUSEA; Start 12/15/16 at 22:30; Stop 12/16/16 at 13:08; Status DC Propofol 100 ml @ As Directed STK-MED ONCE IV ; Start 12/15/16 at 23:13; Stop at 23:14; Status DC Nicardipine HCl/ Sodium Chloride (Cardene/Iv Sodium Chloride 0.9% 250ml) 270 ml @ 27 mls/hr TITRATE PRN IV PER PROTOCOL; Start 12/15/16 at 23:30 Diphenhydramine HCl (Benadryl) 25 mg PRN Q6HRS PRN PO ITCHING; Start 12/15/16 at 23:30 Diphenhydramine HCl 25 mg 25 mg PRN Q6HRS PRN IV ITCHING; Start 12/15/16 at 23: 30 Levetiracetam/ Sodium Chloride (Keppra/Iv Sodium Chloride 0.9% 100ml) 105 ml @ 400 mls/hr Q12HR IV Last administered on 12/18/16 08:03; Start 12/16/16 at 09: 00 Sodium Chloride (Normal Saline Flush) 3 ml QSHIFT PRN IV AFTER MEDS AND BLOOD DRAWS; Start 12/15/16 at 23:30 Dextrose 12.5 gm PRN Q15MIN PRN IV SEE COMMENTS; Start 12/15/16 at 23:30 Magnesium Hydroxide (Milk Of Magnesia) 2,400 mg PRN Q12HR PRN PO CONSTIPATION; Start 12/15/16 at 23:30 Ondansetron HCl 4 mg 4 mg PRN Q6HRS PRN IV NAUESA, 1ST CHOICE; Start 12/15/16 at 23:30 Cefazolin Sodium 1 gm/Sodium Chloride 50 ml @ 100 mls/hr Q8HRS IV Last administered on 12/16/16 21:05; Start 12/16/16 at 06:00; Stop 12/16/16 at 22:29 ; Status DC Potassium Chloride/Dextrose/ Sod Cl (KCl 20 Meq In D5W-1/2 NS) 1,000 ml @ 75 mls/hr [id number] IV Last administered on 12/18/16 03:59; Start 12/15/16 at 23:30 Fentanyl Citrate (Fentanyl 2ml Vial) 25 mcg PRN Q1HR PRN IV PAIN Last administered on 12/16/16 16:42; Start 12/15/16 at 23:30 Fentanyl Citrate (Fentanyl 2ml Vial) 50 mcg PRN Q1HR PRN IV PAIN Last administered on 12/17/16 18:41; Start 12/15/16 at 23:30 Info (Do NOT chart on this placeholder) 1 each 1X ONCE MC ; Start 12/16/16 at 04:00; Stop 12/16/16 at 04:01; Status UNV Pneumococcal Polyvalent Vaccine (Do NOT chart on this placeholder) 1 each 1X ONCE MC ; Start 12/16/16 at 04:00; Stop 12/16/16 at 04:01; Status UNV Influenza Virus Vaccine Quadrival (Fluarix Quad [id number] Syringe) 0.5 ml ONCE ONCE VAX IM Last administered on 12/17/16 08:49; Start 12/16/16 at 09:00; Stop 12/16/16 at 09:01; Status DC Pneumococcal Polyvalent Vaccine 0.5 ml 0.5 ml ONCE ONCE VAX IM Last administered on 12/17/16 08:47; Start 12/16/16 at 09:00; Stop 12/16/16 at 09:01 ; Status DC Propofol 100 ml @ 0 mls/hr CONT PRN IV SEE I/O RECORD Last administered on 12/18 01:52; Start 12/16/16 at 04:30 Propofol 100 ml @ 0 mls/hr CONT PRN IV SEE I/O RECORD; Start 12/16/16 at 00:00 ; Stop 12/16/16 at 03:00; Status Cancel Propofol 100 ml @ 0 mls/hr CONT PRN IV SEE I/O RECORD Last administered on 20:00; Start 12/16/16 at 00:00; Stop 12/16/16 at 09:04; Status DC Multivitamins/ Minerals/Thiamine HCl/Folic Acid/ Sodium Chloride (Infuvite Adult / Iv Sodium Chloride 0.9% 1000ml Bag) 1,011.2 ml @ 100 mls/ hr DAILY IV Last administered on 12/18/16 08:04; Start 12/16/16 at 10:00; Stop 12/22/16 at 09:59 Lorazepam (Ativan) 2 mg PRN Q1HR PRN IV For CIWA 8-14; Start 12/16/16 at 10:00 Lorazepam (Ativan) 4 mg PRN Q1HR PRN IV For CIWA 15 or greater; Start 12/16/16 at 10:00 Piperacillin Sod/ Tazobactam Sod (Zosyn Per Pharmacy) 1 each PRN DAILY PRN MC SEE COMMENTS; Start 12/16/16 at 10:30 Vancomycin HCl 1 each 1 each PRN DAILY PRN MC SEE COMMENTS Last administered on 12/18/16 04:00; Start 12/16/16 at 10:30 Vancomycin HCl 1.5 gm/Sodium Chloride 500 ml @ 250 mls/hr 1X ONCE IV Last administered on 12/16/16 14:08; Start 12/16/16 at 11:00; Stop 12/16/16 at 12:59 ; Status DC Piperacillin Sod/ Tazobactam Sod/ Sodium Chloride (Zosyn/Iv Sodium Chloride 0.9 % 100ml) 100 ml @ 200 mls/hr Q6HRS IV Last administered on 12/18/16 05:11; Start 12/16/16 at 12:00 Propofol 1000 mg 1,000 mg STK-MED ONCE IV ; Start 12/15/16 at 23:00; Stop at 13:28; Status DC Vancomycin HCl/ Sodium Chloride (Iv Sodium Chloride 0.9% 250ml) 250 ml @ 250 mls/hr Q12H IV Last administered on 12/18/16 02:00; Start 12/17/16 at 02:00; Stop 12/18/16 at 03:45; Status DC Vancomycin HCl 1 each 1X ONCE MC Last administered on 12/18/16 01:30; Start 12/18/16 at 01:30; Stop 12/18/16 at 01:31; Status DC Hydralazine HCl (Apresoline) 10 mg PRN Q4HRS PRN IVP ELEVATED BP, SEE COMMENTS Last administered on 12/17/16 13:15; Start 12/17/16 at 12:15 Potassium Chloride 40 meq 40 meq 1X ONCE PO ; Start 12/17/16 at 18:15; Stop 09/22 at 18:16; Status Cancel Potassium Chloride 50 ml @ 50 mls/hr Q1H IV Last administered on 12/18/16 00: 55; Start 12/17/16 at 19:00; Stop 12/17/16 at 20:59; Status DC Vancomycin HCl/ Sodium Chloride (Iv Sodium Chloride 0.9% 250ml) 250 ml @ 250 mls/hr Q8H IV Last administered on 12/18/16 03:54; Start 12/18/16 at 04:00 Vancomycin HCl 1 each 1X ONCE MC ; Start 12/19/16 at 03:30; Stop 12/19/16 at 03 :31 Budesonide (Pulmicort) 0.5 mg RTBID NEB ; Start 12/18/16 at 08:00 Active Scripts Active Reported Benazepril Hcl 40 Mg Tablet 1 Tab PO DAILY Amlodipine Besylate 5 Mg Tablet 5 Mg PO DAILY Vitals/I & O Vital Sign - Last 24 Hours 12/17/16 12/17/16 12/17/16 12/17/16 11:00 12:00 12:00 12:00 Temp 99.5 99.5 Pulse 85 72 72 Resp 18 18 B/P 160/89 161/89 161/89 Pulse Ox 100 100 O2 Delivery Ventilator Mechanical Ventilator Ventilator 12/17/16 12/17/16 12/17/16 12/17/16 12:11 13:00 13:15 14:00 Pulse 115 113 114 Resp 30 32 B/P 163/90 163/90 136/66 Pulse Ox 99 100 99 O2 Delivery Ventilator Ventilator Ventilator 12/17/16 12/17/16 12/17/16 12/17/16 15:00 15:33 15:50 16:00 Temp 100.3 100.3 Pulse 81 77 Resp 21 31 20 B/P 97/46 105/53 Pulse Ox 90 95 99 93 O2 Delivery Ventilator Ventilator Ventilator Ventilator 12/17/16 12/17/16 12/17/16 12/17/16 16:00 16:00 16:10 16:59 Pulse 77 116 Resp 30 B/P 105/53 141/72 Pulse Ox 94 O2 Delivery Mechanical Ventilator Ventilator Ventilator 12/17/16 12/17/16 12/17/16 12/17/16 17:09 17:14 18:00 18:41 Pulse 92 Resp 29 21 29 B/P 132/99 Pulse Ox 99 92 95 86 O2 Delivery Ventilator Ventilator Ventilator Ventilator 12/17/16 12/17/16 12/17/16 12/17/16 19:00 19:00 19:58 20:00 Temp 100.0 100.0 Pulse 82 104 Resp 30 18 31 B/P 104/64 130/78 Pulse Ox 92 96 92 92 O2 Delivery Ventilator Ventilator Ventilator 12/17/16 12/17/16 12/17/16 12/17/16 20:00 20:00 21:00 22:00 Pulse 104 86 85 Resp 20 18 B/P 130/78 105/65 128/92 Pulse Ox 97 97 O2 Delivery Mechanical Ventilator Ventilator Ventilator 12/17/16 12/17/16 12/18/16 12/18/16 23:00 23:47 00:00 00:00 Pulse 88 85 Resp 23 B/P 125/77 102/67 Pulse Ox 97 99 O2 Delivery Ventilator Ventilator Mechanical Ventilator 12/18/16 12/18/16 12/18/16 12/18/16 00:00 01:00 02:00 02:48 Temp 99.5 99.5 Pulse 100 84 74 Resp 28 18 20 B/P 122/77 135/83 121/73 Pulse Ox 98 98 98 100 O2 Delivery Ventilator Ventilator Ventilator Ventilator 12/18/16 12/18/16 12/18/16 12/18/16 03:00 04:00 04:00 04:00 Temp 98.1 98.1 Pulse 78 66 68 Resp 21 21 B/P 141/93 106/60 102/60 Pulse Ox 98 97 O2 Delivery Ventilator Mechanical Ventilator Ventilator 12/18/16 12/18/16 12/18/16 12/18/16 04:33 05:00 06:00 07:00 Pulse 73 73 81 Resp 17 18 23 B/P 126/70 107/66 121/86 Pulse Ox 100 98 99 94 O2 Delivery Ventilator Ventilator Ventilator Ventilator 12/18/16 12/18/16 12/18/16 12/18/16 07:17 08:00 08:00 08:00 Temp 98.7 98.7 Pulse 104 104 Resp 15 B/P 133/92 133/92 Pulse Ox 94 97 O2 Delivery Ventilator Mechanical Ventilator Ventilator 12/18/16 12/18/16 12/18/16 09:00 09:15 10:00 Pulse 73 66 Resp 21 5 B/P 157/91 123/69 Pulse Ox 97 94 100 O2 Delivery Ventilator Ventilator Ventilator Intake and Output 12/17/16 12/17/16 12/18/16 15:00 23:00 07:00 Intake Total 282.5 ml 1811.0 ml 718 ml Output Total 400 ml 425 ml 177 ml Balance -117.5 ml 1386.0 ml 541 ml SANDRA PATTERSON MD Dec 18, 2016 10:23
[2016-12-18] MEDS: FENTANYL PF 100 MCG/2 ML VIAL. IV PRN ×3 (10:49→22:25)
[2016-12-18] MEDS: hydrALAZINE 20 MG/ML VIAL. IVP PRN (10:50)
[2016-12-18 10:53] LABS: HEMATOCRIT 37.1 % (39.0-53.0); HEMOGLOBIN 12.4 g/dL (13.0-17.5); RED BLOOD COUNT 3.74 x10^6/uL (4.30-5.70); RED CELL DISTRIBUTION WIDTH 12.6 % (11.5-14.5); WHITE BLOOD COUNT 9.9 x10^3/uL (4.0-11.0)
--- NOTE | 2016-12-18 11:14 | RAD ---
Single view chest History:intubated An AP view of the chest is submitted. Comparison: 12/16/2016. Findings: There is again enteric catheter coursing into the stomach. There is again endotracheal tube, tip terminating approximately 4 cm from rico. There is no pneumothorax, pleural fluid, lobar infiltrate. Heart size is stable. Impression: There is again endotracheal tube and enteric catheter, no new infiltrate.
[2016-12-18 12:38] LABS: HCO3 ABG 19 mmol/L (21-28); PCO2 ABG 35 mmHg (35-46); PH ABG 7.36 (7.35-7.45); PO2 ABG 58 mmHg (65-108); SAT O2 ABG 87 % (92-99)
[2016-12-18] MEDS ORDERED: VECURONIUM BOLUS 10 MG VIAL. IV ONE (13:00)
[2016-12-18 13:44] LABS: ALBUMIN 2.2 g/dL (3.4-5.0); ALBUMIN/GLOBULIN RATIO 0.6 (1.0-1.7); CREATININE 0.6 mg/dL (0.7-1.3); GFR 136.5; MAGNESIUM 1.6 mg/dL (1.8-2.4); PHOSPHORUS 2.5 mg/dL (2.6-4.7); TOTAL BILIRUBIN 0.9 mg/dL (0.2-1.0); TOTAL PROTEIN 5.9 g/dL (6.4-8.2)
[2016-12-18 13:47] LABS: POTASSIUM 2.8 mmol/L (3.5-5.1)
[2016-12-18 13:55] LABS: FIO2 ABG 45
[2016-12-18] MEDS ORDERED: MAGNESIUM SULFATE 2GM 50 ML IV ONE (15:00)
--- NOTE | 2016-12-18 15:28 | RAD ---
Head CT without contrast History:post op follow up Technique: Noncontrast CT imaging was acquired of the head. RS Compliance Statement: One or more of the following individualized dose reduction techniques were utilized for this examination: 1. Automated exposure control 2. Adjustment of the mA and/or kV according to patient size 3. Use of iterative reconstruction technique Comparison: 12/16/2016 Findings: There again has been right frontoparietal craniotomy, some gas in the right scalp soft tissues slightly decreased. There is again pneumocephalus, also intraventricular gas as seen previously. There is again right transfrontal shunt with the tip terminating in the right aspect of foramen of [place]ro. There is again prominent intraventricular hemorrhage. There is again residual parenchymal hematoma centered in the right basal ganglia on the order of 3 cm transverse x 2.8 cm AP which is similar, adjacent low density compatible with edema. There is again relatively hypodense subdural collection along the right lateral convexity with some internal gas and mild hyperdensity, greatest thickness up to 0.8 cm fairly similar. There is mild subdural hematoma along the posterior falx and right tentorium, fairly similar. Some small foci of parenchymal hemorrhage more anteriorly of the right basal ganglia are stable to somewhat less apparent with adjacent surrounding edema as seen previously. Overall size of the ventricles has somewhat decreased. Thin subdural fluid collection on the left frontal region is now more hypodense, similar in size in greatest thickness up to 0.4 cm. There is near complete opacification left maxillary sinus. There is air-fluid level in right sphenoid sinus. There is partial opacification ethmoid air cells greater on the left. Mastoid air cells are aerated. Impression: There again has been right frontoparietal craniotomy. There is again intraventricular hemorrhage as well as parenchymal hemorrhage centered in the right basal ganglia with surrounding edema, thin posterior subdural hematoma along the tentorium and falx, and also relatively hypodense subdural collections of the frontal regions greater on the right. Overall findings are fairly similar other than decreased size of the lateral ventricles. There is again pneumocephalus, also intraventricular gas.
[2016-12-18] MEDS: POTASSIUM CHLORIDE 10MEQ 100 ML IV SCH ×4 (16:26→18:17)
--- NOTE | 2016-12-18 22:03 | PDOC ---
PROGRESS NOTES Subjective Subjective Patient seen at 1100 agitated when stimulated Objective Objective Vital Signs Date Time Temp Pulse Resp B/P Pulse Ox O2 Delivery O2 Flow Rate FiO2 12/18/16 21:00 68 18 100/61 100 Ventilator 12/18/16 19:00 100.0 100.0 Intake and Output 12/18/16 07:00 Intake Total 2811.5 ml Output Total 1002 ml Balance 1809.5 ml IV Total 2811.5 ml Output Urine Total 995 ml Drainage Total 7 ml Physical Exam General: Other (intubated) HEENT: Other (pupils reactive, localizes briskly with right upper extremity, moves right side purposefully) Skin: Other (dressing intact, ICP re zeroed and was 4 mmHg ) Assessment Assessment Problems Medical Problems: (1) Intraparenchymal hematoma of brain Status: Acute Plan Plan of Care continue to wean from vent as tolerated limit agitation, sedate as needed IVF filter should be considered scd/ teds d/w family at length Comment Review of Relevant I have reviewed the following items jose alfredo (where applicable) has been applied. Labs Laboratory Tests Test 12/17/16 08:00 12/17/16 13:50 12/18/16 01:50 12/18/16 05:00 O2 Saturation 98% (92-99) Arterial Blood pH 7.48 (7.35-7.45) Arterial Blood pCO2 at Patient Temp 28mmHg (35-46) Arterial Blood pO2 at Patient Temp 117mmHg (65-108) Arterial Blood HCO3 20mmol/L (21-28) Arterial Blood Base Excess -2mmol/L (-3-3) FiO2 35 White Blood Count 12.7x10^3/uL (4.0-11.0) Red Blood Count 3.82x10^6/uL (4.30-5.70) Hemoglobin 12.5g/dL (13.0-17.5) Hematocrit 37.6% (39.0-53.0) Mean Corpuscular Volume 98fL (79-100) Mean Corpuscular Hemoglobin 33pg (25-35) Mean Corpuscular Hemoglobin Concent 33g/dL (31-37) Red Cell Distribution Width 12.7% (11.5-14.5) Platelet Count 160x10^3/uL (140-400) Sodium Level 136mmol/L (136-145) 141mmol/L (136-145) Potassium Level 3.0mmol/L (3.5-5.1) 3.0mmol/L (3.5-5.1) Chloride Level 104mmol/L (98-107) 110mmol/L (98-107) Carbon Dioxide Level 22mmol/L (21-32) 19mmol/L (21-32) Anion Gap 10 (6-14) 12 (6-14) Blood Urea Nitrogen 7mg/dL (8-26) 10mg/dL (8-26) Creatinine 0.6mg/dL (0.7-1.3) 0.5mg/dL (0.7-1.3) Estimated GFR (Cockcroft-Gault) 136.5 168.5 Glucose Level 129mg/dL (70-99) 93mg/dL (70-99) Calcium Level 8.7mg/dL (8.5-10.1) 7.2mg/dL (8.5-10.1) Vancomycin Level Trough 2.5mcg/mL (10.0-20.0) Vancomycin Last Dose Date Vancomycin Last Dose Time BUN/Creatinine Ratio 20 (6-20) Magnesium Level 1.5mg/dL (1.8-2.4) Total Bilirubin 0.9mg/dL (0.2-1.0) Aspartate Amino Transf (AST/SGOT) 44U/L (15-37) Alanine Aminotransferase (ALT/SGPT) 22U/L (16-63) Alkaline Phosphatase 29U/L (46-116) Total Protein 4.6g/dL (6.4-8.2) Albumin 2.0g/dL (3.4-5.0) Albumin/Globulin Ratio 0.8 (1.0-1.7) Test 12/18/16 08:08 12/18/16 10:00 12/18/16 12:20 12/18/16 13:20 O2 Saturation 95% (92-99) 87% (92-99) Arterial Blood pH 7.51 (7.35-7.45) 7.36 (7.35-7.45) Arterial Blood pCO2 at Patient Temp 27mmHg (35-46) 35mmHg (35-46) Arterial Blood pO2 at Patient Temp 77mmHg (65-108) 58mmHg (65-108) Arterial Blood HCO3 21mmol/L (21-28) 19mmol/L (21-28) Arterial Blood Base Excess -1mmol/L (-3-3) -5mmol/L (-3-3) FiO2 35 45 White Blood Count 9.9x10^3/uL (4.0-11.0) Red Blood Count 3.74x10^6/uL (4.30-5.70) Hemoglobin 12.4g/dL (13.0-17.5) Hematocrit 37.1% (39.0-53.0) Mean Corpuscular Volume 99fL (79-100) Mean Corpuscular Hemoglobin 33pg (25-35) Mean Corpuscular Hemoglobin Concent 33g/dL (31-37) Red Cell Distribution Width 12.6% (11.5-14.5) Platelet Count 134x10^3/uL (140-400) Sodium Level 138mmol/L (136-145) Potassium Level 2.8mmol/L (3.5-5.1) Chloride Level 106mmol/L (98-107) Carbon Dioxide Level 20mmol/L (21-32) Anion Gap 12 (6-14) Blood Urea Nitrogen 11mg/dL (8-26) Creatinine 0.6mg/dL (0.7-1.3) Estimated GFR (Cockcroft-Gault) 136.5 BUN/Creatinine Ratio 18 (6-20) Glucose Level 141mg/dL (70-99) Calcium Level 8.0mg/dL (8.5-10.1) Phosphorus Level 2.5mg/dL (2.6-4.7) Magnesium Level 1.6mg/dL (1.8-2.4) Total Bilirubin 0.9mg/dL (0.2-1.0) Aspartate Amino Transf (AST/SGOT) 49U/L (15-37) Alanine Aminotransferase (ALT/SGPT) 28U/L (16-63) Alkaline Phosphatase 49U/L (46-116) Total Protein 5.9g/dL (6.4-8.2) Albumin 2.2g/dL (3.4-5.0) Albumin/Globulin Ratio 0.6 (1.0-1.7) Laboratory Tests Test 12/18/16 01:50 12/18/16 05:00 12/18/16 08:08 12/18/16 10:00 Vancomycin Level Trough 2.5mcg/mL (10.0-20.0) Vancomycin Last Dose Date Vancomycin Last Dose Time Sodium Level 141mmol/L (136-145) Potassium Level 3.0mmol/L (3.5-5.1) Chloride Level 110mmol/L (98-107) Carbon Dioxide Level 19mmol/L (21-32) Anion Gap 12 (6-14) Blood Urea Nitrogen 10mg/dL (8-26) Creatinine 0.5mg/dL (0.7-1.3) Estimated GFR (Cockcroft-Gault) 168.5 BUN/Creatinine Ratio 20 (6-20) Glucose Level 93mg/dL (70-99) Calcium Level 7.2mg/dL (8.5-10.1) Magnesium Level 1.5mg/dL (1.8-2.4) Total Bilirubin 0.9mg/dL (0.2-1.0) Aspartate Amino Transf (AST/SGOT) 44U/L (15-37) Alanine Aminotransferase (ALT/SGPT) 22U/L (16-63) Alkaline Phosphatase 29U/L (46-116) Total Protein 4.6g/dL (6.4-8.2) Albumin 2.0g/dL (3.4-5.0) Albumin/Globulin Ratio 0.8 (1.0-1.7) O2 Saturation 95% (92-99) Arterial Blood pH 7.51 (7.35-7.45) Arterial Blood pCO2 at Patient Temp 27mmHg (35-46) Arterial Blood pO2 at Patient Temp 77mmHg (65-108) Arterial Blood HCO3 21mmol/L (21-28) Arterial Blood Base Excess -1mmol/L (-3-3) FiO2 35 White Blood Count 9.9x10^3/uL (4.0-11.0) Red Blood Count 3.74x10^6/uL (4.30-5.70) Hemoglobin 12.4g/dL (13.0-17.5) Hematocrit 37.1% (39.0-53.0) Mean Corpuscular Volume 99fL (79-100) Mean Corpuscular Hemoglobin 33pg (25-35) Mean Corpuscular Hemoglobin Concent 33g/dL (31-37) Red Cell Distribution Width 12.6% (11.5-14.5) Platelet Count 134x10^3/uL (140-400) Test 12/18/16 12:20 12/18/16 13:20 O2 Saturation 87% (92-99) Arterial Blood pH 7.36 (7.35-7.45) Arterial Blood pCO2 at Patient Temp 35mmHg (35-46) Arterial Blood pO2 at Patient Temp 58mmHg (65-108) Arterial Blood HCO3 19mmol/L (21-28) Arterial Blood Base Excess -5mmol/L (-3-3) FiO2 45 Sodium Level 138mmol/L (136-145) Potassium Level 2.8mmol/L (3.5-5.1) Chloride Level 106mmol/L (98-107) Carbon Dioxide Level 20mmol/L (21-32) Anion Gap 12 (6-14) Blood Urea Nitrogen 11mg/dL (8-26) Creatinine 0.6mg/dL (0.7-1.3) Estimated GFR (Cockcroft-Gault) 136.5 BUN/Creatinine Ratio 18 (6-20) Glucose Level 141mg/dL (70-99) Calcium Level 8.0mg/dL (8.5-10.1) Phosphorus Level 2.5mg/dL (2.6-4.7) Magnesium Level 1.6mg/dL (1.8-2.4) Total Bilirubin 0.9mg/dL (0.2-1.0) Aspartate Amino Transf (AST/SGOT) 49U/L (15-37) Alanine Aminotransferase (ALT/SGPT) 28U/L (16-63) Alkaline Phosphatase 49U/L (46-116) Total Protein 5.9g/dL (6.4-8.2) Albumin 2.2g/dL (3.4-5.0) Albumin/Globulin Ratio 0.6 (1.0-1.7) Medications Current Medications Multivitamins/ Minerals/Folic Acid/Thiamine HCl/ Sodium Chloride (Infuvite Adult / Iv Sodium Chloride 0.9% 1000ml Bag) 1,011.2 ml @ 1,000 mls/ hr 1X ONCE IV Last administered on 12/15/16 18:53; Start 12/15/16 at 18:45; Stop 12/15/16 at 19: 45; Status DC Ondansetron HCl 4 mg 4 mg 1X ONCE IV ; Start 12/15/16 at 18:45; Stop 12/15/16 at 18:46; Status DC Propofol 0 ml @ As Directed STK-MED ONCE IV ; Start 12/15/16 at 19:57; Stop at 19:58; Status DC Propofol (Diprivan) 50 ml @ As Directed STK-MED ONCE IV ; Start 12/15/16 at 19:57 ; Stop 12/15/16 at 19:58; Status DC Lidocaine HCl 100 mg STK-MED ONCE .ROUTE ; Start 12/15/16 at 20:45; Stop 12/15/16 at 20:46; Status DC Fentanyl Citrate (Fentanyl 2ml Vial) 100 mcg STK-MED ONCE .ROUTE ; Start at 20:46; Stop 12/15/16 at 20:47; Status DC Rocuronium [place] (Zemuron) 50 mg STK-MED ONCE .ROUTE ; Start 12/15/16 at 20:46 ; Stop 12/15/16 at 20:47; Status DC Ondansetron HCl 4 mg 4 mg PRN Q8HRS PRN IV NAUSEA/VOMITING; Start 12/15/16 at 20 :45; Stop 12/15/16 at 23:44; Status DC Sodium Chloride (Iv Sodium Chloride 0.9% 1000ml Bag) 1,000 ml @ 100 mls/hr Q10H IV Last administered on 12/16/16 06:45; Start 12/15/16 at 20:45; Stop 08/22 at 07:25; Status DC Acetaminophen (Tylenol) 650 mg PRN Q4HRS PRN PO FEVER Last administered on 12/16 16:43; Start 12/15/16 at 20:45; Stop 12/16/16 at 20:44; Status DC Etomidate (Amidate) 20 mg 1X ONCE IV Last administered on 12/15/16 19:51; Start 12/15/16 at 20:45; Stop 12/15/16 at 20:53; Status DC Succinylcholine Chloride 100 mg 100 mg 1X ONCE IV Last administered on 19:52; Start 12/15/16 at 20:45; Stop 12/15/16 at 20:53; Status DC Bacitracin/Sodium Chloride (Iv Sodium Chloride 0.9% 1000ml Bag) 1,000 ml @ 1, 000 mls/hr 1X PERIOP ONCE IRR Last administered on 12/15/16 22:05; Start at 21:00; Stop 12/15/16 at 21:59; Status DC Cellulose 1 each STK-MED ONCE .ROUTE Last administered on 12/15/16 22:05; Start 12/15/16 at 20:58; Stop 12/15/16 at 20:59; Status DC Bupivacaine HCl/ Epinephrine Bitart (Sensorcain-Mpf Epi 0.5%-1:129873) 30 ml STK -MED ONCE .ROUTE Last administered on 12/15/16 22:05; Start 12/15/16 at 20:58; Stop 12/15/16 at 20:59; Status DC Gelatin (Gelfoam Size 100) 1 each STK-MED ONCE .ROUTE Last administered on 12/15 22:05; Start 12/15/16 at 20:58; Stop 12/15/16 at 20:59; Status DC Thrombin 60719 unit 20,000 unit STK-MED ONCE TP Last administered on 12/15/16 22:05; Start 12/15/16 at 20:58; Stop 12/15/16 at 20:59; Status DC Propofol (Diprivan) 20 ml @ As Directed STK-MED ONCE IV ; Start 12/15/16 at 21:06 ; Stop 12/15/16 at 21:07; Status DC Desflurane 60 ml 60 ml STK-MED ONCE IH ; Start 12/15/16 at 21:49; Stop 12/15/16 at 21:50; Status DC Cefazolin Sodium/ Dextrose 50 ml @ As Directed STK-MED ONCE IV ; Start 12/15/16 at 21:52; Stop 12/15/16 at 21:53; Status DC Mannitol (Mannitol Iv Soln) 500 ml @ As Directed STK-MED ONCE IV ; Start at 21:53; Stop 12/15/16 at 21:54; Status DC Phenylephrine HCl 1 mg 1 mg STK-MED ONCE IV ; Start 12/15/16 at 21:55; Stop at 21:56; Status DC Levetiracetam/ Sodium Chloride (Keppra/Iv Sodium Chloride 0.9% 100ml) 100 ml @ 400 mls/hr 1X ONCE IV Last administered on 12/15/16t 22:30; Start 12/15/16 at 22 :15; Stop 12/15/16 at 22:29; Status DC Ondansetron HCl (Zofran) 4 mg PRN Q6HRS PRN IV Nausea; Start 12/15/16 at 22:30; Stop 12/16/16 at 14:48; Status DC Fentanyl Citrate (Fentanyl 2ml Vial) 25 mcg PRN Q5MIN PRN IV MILD PAIN; Start 12/15/16 at 22:30; Stop 12/16/16 at 13:00; Status DC Fentanyl Citrate (Fentanyl 2ml Vial) 50 mcg PRN Q5MIN PRN IV MODERATE PAIN; Start 12/15/16 at 22:30; Stop 12/16/16 at 13:00; Status DC Morphine Sulfate 1 mg 1 mg PRN Q10MIN PRN IV SEVERE PAIN; Start 12/15/16 at 22: 30; Stop 12/16/16 at 13:08; Status DC Lactated Ringer's (Iv Lactated Ringers) 1,000 ml @ 0 mls/hr Q0M IV ; Start 12/15 at 22:30; Stop 12/16/16 at 13:08; Status DC Lidocaine HCl 2 ml 1X PRN PRN ID IV START; Start 12/15/16 at 22:30; Stop at 13:08; Status DC Hydromorphone HCl (Dilaudid) 0.5 mg PRN Q10MIN PRN IV SEV PAIN,Second choice; Start 12/15/16 at 22:30; Stop 12/16/16 at 13:01; Status DC Prochlorperazine Edisylate 5 mg 5 mg PACU PRN PRN IV NAUSEA; Start 12/15/16 at 22:30; Stop 12/16/16 at 13:08; Status DC Propofol 100 ml @ As Directed STK-MED ONCE IV ; Start 12/15/16 at 23:13; Stop at 23:14; Status DC Nicardipine HCl/ Sodium Chloride (Cardene/Iv Sodium Chloride 0.9% 250ml) 270 ml @ 27 mls/hr TITRATE PRN IV PER PROTOCOL; Start 12/15/16 at 23:30 Diphenhydramine HCl (Benadryl) 25 mg PRN Q6HRS PRN PO ITCHING; Start 12/15/16 at 23:30 Diphenhydramine HCl 25 mg 25 mg PRN Q6HRS PRN IV ITCHING; Start 12/15/16 at 23: 30 Levetiracetam/ Sodium Chloride (Keppra/Iv Sodium Chloride 0.9% 100ml) 105 ml @ 400 mls/hr Q12HR IV Last administered on 12/18/16 21:38; Start 12/16/16 at 09: 00 Sodium Chloride (Normal Saline Flush) 3 ml QSHIFT PRN IV AFTER MEDS AND BLOOD DRAWS; Start 12/15/16 at 23:30 Dextrose 12.5 gm PRN Q15MIN PRN IV SEE COMMENTS; Start 12/15/16 at 23:30 Magnesium Hydroxide (Milk Of Magnesia) 2,400 mg PRN Q12HR PRN PO CONSTIPATION; Start 12/15/16 at 23:30 Ondansetron HCl 4 mg 4 mg PRN Q6HRS PRN IV NAUESA, 1ST CHOICE; Start 12/15/16 at 23:30 Cefazolin Sodium 1 gm/Sodium Chloride 50 ml @ 100 mls/hr Q8HRS IV Last administered on 12/16/16 21:05; Start 12/16/16 at 06:00; Stop 12/16/16 at 22:29 ; Status DC Potassium Chloride/Dextrose/ Sod Cl (KCl 20 Meq In D5W-1/2 NS) 1,000 ml @ 75 mls/hr [id number] IV Last administered on 12/18/16 18:18; Start 12/15/16 at 23:30 Fentanyl Citrate (Fentanyl 2ml Vial) 25 mcg PRN Q1HR PRN IV PAIN Last administered on 12/18/16 12:01; Start 12/15/16 at 23:30 Fentanyl Citrate (Fentanyl 2ml Vial) 50 mcg PRN Q1HR PRN IV PAIN Last administered on 12/17/16 18:41; Start 12/15/16 at 23:30 Info (Do NOT chart on this placeholder) 1 each 1X ONCE MC ; Start 12/16/16 at 04:00; Stop 12/16/16 at 04:01; Status UNV Pneumococcal Polyvalent Vaccine (Do NOT chart on this placeholder) 1 each 1X ONCE MC ; Start 12/16/16 at 04:00; Stop 12/16/16 at 04:01; Status UNV Influenza Virus Vaccine Quadrival (Fluarix Quad 8994-9324 Syringe) 0.5 ml ONCE ONCE VAX IM Last administered on 12/17/16 08:49; Start 12/16/16 at 09:00; Stop 12/16/16 at 09:01; Status DC Pneumococcal Polyvalent Vaccine 0.5 ml 0.5 ml ONCE ONCE VAX IM Last administered on 12/17/16 08:47; Start 12/16/16 at 09:00; Stop 12/16/16 at 09:01 ; Status DC Propofol 100 ml @ 0 mls/hr CONT PRN IV SEE I/O RECORD Last administered on 12/18 15:33; Start 12/16/16 at 04:30 Propofol 100 ml @ 0 mls/hr CONT PRN IV SEE I/O RECORD; Start 12/16/16 at 00:00 ; Stop 12/16/16 at 03:00; Status Cancel Propofol 100 ml @ 0 mls/hr CONT PRN IV SEE I/O RECORD Last administered on 20:00; Start 12/16/16 at 00:00; Stop 12/16/16 at 09:04; Status DC Multivitamins/ Minerals/Thiamine HCl/Folic Acid/ Sodium Chloride (Infuvite Adult / Iv Sodium Chloride 0.9% 1000ml Bag) 1,011.2 ml @ 100 mls/ hr DAILY IV Last administered on 12/18/16 08:04; Start 12/16/16 at 10:00; Stop 12/22/16 at 09:59 Lorazepam (Ativan) 2 mg PRN Q1HR PRN IV For CIWA 8-14; Start 12/16/16 at 10:00 Lorazepam (Ativan) 4 mg PRN Q1HR PRN IV For CIWA 15 or greater; Start 12/16/16 at 10:00 Piperacillin Sod/ Tazobactam Sod (Zosyn Per Pharmacy) 1 each PRN DAILY PRN MC SEE COMMENTS; Start 12/16/16 at 10:30; Stop 12/18/16 at 11:54; Status DC Vancomycin HCl 1 each 1 each PRN DAILY PRN MC SEE COMMENTS Last administered on 12/18/16 04:00; Start 12/16/16 at 10:30; Stop 12/18/16 at 11:54; Status DC Vancomycin HCl 1.5 gm/Sodium Chloride 500 ml @ 250 mls/hr 1X ONCE IV Last administered on 12/16/16 14:08; Start 12/16/16 at 11:00; Stop 12/16/16 at 12:59 ; Status DC Piperacillin Sod/ Tazobactam Sod/ Sodium Chloride (Zosyn/Iv Sodium Chloride 0.9 % 100ml) 100 ml @ 200 mls/hr Q6HRS IV Last administered on 12/18/16 05:11; Start 12/16/16 at 12:00; Stop 12/18/16 at 11:54; Status DC Propofol 1000 mg 1,000 mg STK-MED ONCE IV ; Start 12/15/16 at 23:00; Stop at 13:28; Status DC Vancomycin HCl/ Sodium Chloride (Iv Sodium Chloride 0.9% 250ml) 250 ml @ 250 mls/hr Q12H IV Last administered on 12/18/16 02:00; Start 12/17/16 at 02:00; Stop 12/18/16 at 03:45; Status DC Vancomycin HCl 1 each 1X ONCE MC Last administered on 12/18/16 01:30; Start 12/18/16 at 01:30; Stop 12/18/16 at 11:54; Status DC Hydralazine HCl (Apresoline) 10 mg PRN Q4HRS PRN IVP ELEVATED BP, SEE COMMENTS Last administered on 12/18/16 10:50; Start 12/17/16 at 12:15 Potassium Chloride 40 meq 40 meq 1X ONCE PO ; Start 12/17/16 at 18:15; Stop 09/22 at 18:16; Status Cancel Potassium Chloride 50 ml @ 50 mls/hr Q1H IV Last administered on 12/18/16 00: 55; Start 12/17/16 at 19:00; Stop 12/17/16 at 20:59; Status DC Vancomycin HCl/ Sodium Chloride (Iv Sodium Chloride 0.9% 250ml) 250 ml @ 250 mls/hr Q8H IV Last administered on 12/18/16 03:54; Start 12/18/16 at 04:00; Stop 12/18/16 at 11:54; Status DC Vancomycin HCl 1 each 1X ONCE MC ; Start 12/19/16 at 03:30; Stop 12/19/16 at 03 :30; Status DC Budesonide (Pulmicort) 0.5 mg RTBID NEB Last administered on 12/18/16 19:56; Start 12/18/16 at 08:00 Vecuronium [place] 6 mg 6 mg 1X ONCE IV Last administered on 12/18/16 13:09; Start 12/18/16 at 13:00; Stop 12/18/16 at 13:01; Status DC Magnesium Sulfate/ Dextrose 50 ml @ 25 mls/hr 1X ONCE IV Last administered on 12/18/16 15:34; Start 12/18/16 at 15:00; Stop 12/18/16 at 16:59; Status DC Potassium Chloride (KCl Premix 10meq) 100 ml @ 100 mls/hr Q1H IV Last administered on 12/18/16 18:17; Start 12/18/16 at 15:00; Stop 12/18/16 at 18:59 ; Status DC Active Scripts Active Reported Benazepril Hcl 40 Mg Tablet 1 Tab PO DAILY Amlodipine Besylate 5 Mg Tablet 5 Mg PO DAILY Vitals/I & O Vital Sign - Last 24 Hours 12/17/16 12/17/16 12/17/16 12/18/16 22:00 23:00 23:47 00:00 Pulse 85 88 Resp 18 23 B/P 128/92 125/77 Pulse Ox 97 97 99 O2 Delivery Ventilator Ventilator Ventilator Mechanical Ventilator 12/18/16 12/18/16 12/18/16 12/18/16 00:00 00:00 01:00 02:00 Temp 99.5 99.5 Pulse 85 100 84 74 Resp 28 18 20 B/P 102/67 122/77 135/83 121/73 Pulse Ox 98 98 98 O2 Delivery Ventilator Ventilator Ventilator 12/18/16 12/18/16 12/18/16 12/18/16 02:48 03:00 04:00 04:00 Pulse 78 66 Resp 21 B/P 141/93 106/60 Pulse Ox 100 98 O2 Delivery Ventilator Ventilator Mechanical Ventilator 12/18/16 12/18/16 12/18/16 12/18/16 04:00 04:33 05:00 06:00 Temp 98.1 98.1 Pulse 68 73 73 Resp 21 17 18 B/P 102/60 126/70 107/66 Pulse Ox 97 100 98 99 O2 Delivery Ventilator Ventilator Ventilator Ventilator 12/18/16 12/18/16 12/18/16 12/18/16 07:00 07:17 08:00 08:00 Temp 98.7 98.7 Pulse 81 104 Resp 23 15 B/P 121/86 133/92 Pulse Ox 94 94 97 O2 Delivery Ventilator Ventilator Mechanical Ventilator Ventilator 12/18/16 12/18/16 12/18/16 12/18/16 08:00 09:00 09:15 10:00 Pulse 104 73 66 Resp 21 5 B/P 133/92 157/91 123/69 Pulse Ox 97 94 100 O2 Delivery Ventilator Ventilator Ventilator 12/18/16 12/18/16 12/18/16 12/18/16 10:49 10:50 11:00 11:27 Pulse 97 73 Resp 29 20 B/P 156/107 153/81 Pulse Ox 97 98 100 O2 Delivery Ventilator Ventilator Ventilator 12/18/16 12/18/16 12/18/16 12/18/16 12:00 12:00 12:01 12:47 Pulse 121 Resp 28 30 30 B/P 163/90 Pulse Ox 91 93 96 O2 Delivery Mechanical Ventilator Ventilator Ventilator 12/18/16 12/18/16 12/18/16 12/18/16 12:59 14:00 15:00 16:00 Temp 97.3 97.3 Pulse 128 86 71 70 Resp 31 17 17 17 B/P 128/72 109/58 95/54 95/55 Pulse Ox 95 100 100 100 O2 Delivery Ventilator Ventilator Ventilator Ventilator 12/18/16 12/18/16 12/18/16 12/18/16 16:00 16:58 17:00 18:00 Pulse 71 69 Resp 18 17 B/P 113/66 119/72 Pulse Ox 100 100 100 O2 Delivery Mechanical Ventilator Ventilator Ventilator Ventilator 12/18/16 12/18/16 12/18/16 12/18/16 19:00 19:46 20:00 20:00 Temp 100.0 100.0 Pulse 69 68 Resp 18 18 B/P 100/72 98/58 Pulse Ox 100 100 100 O2 Delivery Ventilator Ventilator Mechanical Ventilator Ventilator 12/18/16 21:00 Pulse 68 Resp 18 B/P 100/61 Pulse Ox 100 O2 Delivery Ventilator Intake and Output 12/17/16 12/17/16 12/18/16 15:00 23:00 07:00 Intake Total 282.5 ml 1811.0 ml 718 ml Output Total 400 ml 425 ml 177 ml Balance -117.5 ml 1386.0 ml 541 ml NALLELY MILLAN MD Dec 18, 2016 22:02
[2016-12-19] VITALS (22 sets, daily range): BP systolic 99–152; BP diastolic 57–90
[2016-12-19] MEDS: PROPOFOL 100 ML IV PRN ×2 (02:29→14:58)
[2016-12-19] MEDS: FENTANYL PF 100 MCG/2 ML VIAL. IV PRN ×5 (04:35→21:28)
[2016-12-19] MEDS: BUDESONIDE 0.5 MG/2 ML NEBU NEB SCH ×2 (08:24→20:36)
[2016-12-19 08:38] LABS: HCO3 ABG 20 mmol/L (21-28); PCO2 ABG 26 mmHg (35-46); PH ABG 7.49 (7.35-7.45); PO2 ABG 89 mmHg (65-108); SAT O2 ABG 96 % (92-99)
[2016-12-19 08:41] LABS: FIO2 ABG 40
[2016-12-19] MEDS: LEVETIRACETAM 500 MG in IV NORMAL SALINE 100ML 100 ML IV SCH ×2 (08:48→20:52)
[2016-12-19] MEDS: MVI, ADULT NO.4 WITH VIT K 10 ML, THIAMINE 100 MG, FOLIC ACID 1 MG in IV NORMAL SALINE ... IV SCH ×4 (08:48)
--- NOTE | 2016-12-19 09:56 | PDOC ---
PROGRESS NOTES Subjective Subjective patient seen with Dr. Christina remains intubated sedation just turned off per RN Objective Objective Vital Signs Date Time Temp Pulse Resp B/P Pulse Ox O2 Delivery O2 Flow Rate FiO2 12/19/16 09:05 60 17 124/67 100 Ventilator 12/19/16 07:00 98.6 98.6 Intake and Output 12/19/16 07:00 Intake Total 3378.8 ml Output Total 1097 ml Balance 2281.8 ml IV Total 2154.8 ml Blood Product IV Normal Saline Flush 1224 ml Output Urine Total 1000 ml Drainage Total 97 ml Physical Exam HEENT: Other (pupils equal and sluggish reaction to light) Neuro: Other (localizes with right side, ICP 1- 2) Skin: Other (dressing intact and clean) Assessment Assessment Problems Medical Problems: (1) Intraparenchymal hematoma of brain Status: Acute Plan Plan of Care wean sedation as tolerated wean from vent as tolerated IVC filter should be considered d/w family Comment Review of Relevant I have reviewed the following items jose alfredo (where applicable) has been applied. Labs Laboratory Tests Test 12/17/16 13:50 12/18/16 01:50 12/18/16 05:00 12/18/16 08:08 White Blood Count 12.7x10^3/uL (4.0-11.0) Red Blood Count 3.82x10^6/uL (4.30-5.70) Hemoglobin 12.5g/dL (13.0-17.5) Hematocrit 37.6% (39.0-53.0) Mean Corpuscular Volume 98fL (79-100) Mean Corpuscular Hemoglobin 33pg (25-35) Mean Corpuscular Hemoglobin Concent 33g/dL (31-37) Red Cell Distribution Width 12.7% (11.5-14.5) Platelet Count 160x10^3/uL (140-400) Sodium Level 136mmol/L (136-145) 141mmol/L (136-145) Potassium Level 3.0mmol/L (3.5-5.1) 3.0mmol/L (3.5-5.1) Chloride Level 104mmol/L (98-107) 110mmol/L (98-107) Carbon Dioxide Level 22mmol/L (21-32) 19mmol/L (21-32) Anion Gap 10 (6-14) 12 (6-14) Blood Urea Nitrogen 7mg/dL (8-26) 10mg/dL (8-26) Creatinine 0.6mg/dL (0.7-1.3) 0.5mg/dL (0.7-1.3) Estimated GFR (Cockcroft-Gault) 136.5 168.5 Glucose Level 129mg/dL (70-99) 93mg/dL (70-99) Calcium Level 8.7mg/dL (8.5-10.1) 7.2mg/dL (8.5-10.1) Vancomycin Level Trough 2.5mcg/mL (10.0-20.0) Vancomycin Last Dose Date Vancomycin Last Dose Time BUN/Creatinine Ratio 20 (6-20) Magnesium Level 1.5mg/dL (1.8-2.4) Total Bilirubin 0.9mg/dL (0.2-1.0) Aspartate Amino Transf (AST/SGOT) 44U/L (15-37) Alanine Aminotransferase (ALT/SGPT) 22U/L (16-63) Alkaline Phosphatase 29U/L (46-116) Total Protein 4.6g/dL (6.4-8.2) Albumin 2.0g/dL (3.4-5.0) Albumin/Globulin Ratio 0.8 (1.0-1.7) O2 Saturation 95% (92-99) Arterial Blood pH 7.51 (7.35-7.45) Arterial Blood pCO2 at Patient Temp 27mmHg (35-46) Arterial Blood pO2 at Patient Temp 77mmHg (65-108) Arterial Blood HCO3 21mmol/L (21-28) Arterial Blood Base Excess -1mmol/L (-3-3) FiO2 35 Test 12/18/16 10:00 12/18/16 12:20 12/18/16 13:20 12/19/16 08:00 White Blood Count 9.9x10^3/uL (4.0-11.0) Red Blood Count 3.74x10^6/uL (4.30-5.70) Hemoglobin 12.4g/dL (13.0-17.5) Hematocrit 37.1% (39.0-53.0) Mean Corpuscular Volume 99fL (79-100) Mean Corpuscular Hemoglobin 33pg (25-35) Mean Corpuscular Hemoglobin Concent 33g/dL (31-37) Red Cell Distribution Width 12.6% (11.5-14.5) Platelet Count 134x10^3/uL (140-400) O2 Saturation 87% (92-99) 96% (92-99) Arterial Blood pH 7.36 (7.35-7.45) 7.49 (7.35-7.45) Arterial Blood pCO2 at Patient Temp 35mmHg (35-46) 26mmHg (35-46) Arterial Blood pO2 at Patient Temp 58mmHg (65-108) 89mmHg (65-108) Arterial Blood HCO3 19mmol/L (21-28) 20mmol/L (21-28) Arterial Blood Base Excess -5mmol/L (-3-3) -2mmol/L (-3-3) FiO2 45 40 Sodium Level 138mmol/L (136-145) Potassium Level 2.8mmol/L (3.5-5.1) Chloride Level 106mmol/L (98-107) Carbon Dioxide Level 20mmol/L (21-32) Anion Gap 12 (6-14) Blood Urea Nitrogen 11mg/dL (8-26) Creatinine 0.6mg/dL (0.7-1.3) Estimated GFR (Cockcroft-Gault) 136.5 BUN/Creatinine Ratio 18 (6-20) Glucose Level 141mg/dL (70-99) Calcium Level 8.0mg/dL (8.5-10.1) Phosphorus Level 2.5mg/dL (2.6-4.7) Magnesium Level 1.6mg/dL (1.8-2.4) Total Bilirubin 0.9mg/dL (0.2-1.0) Aspartate Amino Transf (AST/SGOT) 49U/L (15-37) Alanine Aminotransferase (ALT/SGPT) 28U/L (16-63) Alkaline Phosphatase 49U/L (46-116) Total Protein 5.9g/dL (6.4-8.2) Albumin 2.2g/dL (3.4-5.0) Albumin/Globulin Ratio 0.6 (1.0-1.7) Laboratory Tests Test 12/18/16 10:00 12/18/16 12:20 12/18/16 13:20 12/19/16 08:00 White Blood Count 9.9x10^3/uL (4.0-11.0) Red Blood Count 3.74x10^6/uL (4.30-5.70) Hemoglobin 12.4g/dL (13.0-17.5) Hematocrit 37.1% (39.0-53.0) Mean Corpuscular Volume 99fL (79-100) Mean Corpuscular Hemoglobin 33pg (25-35) Mean Corpuscular Hemoglobin Concent 33g/dL (31-37) Red Cell Distribution Width 12.6% (11.5-14.5) Platelet Count 134x10^3/uL (140-400) O2 Saturation 87% (92-99) 96% (92-99) Arterial Blood pH 7.36 (7.35-7.45) 7.49 (7.35-7.45) Arterial Blood pCO2 at Patient Temp 35mmHg (35-46) 26mmHg (35-46) Arterial Blood pO2 at Patient Temp 58mmHg (65-108) 89mmHg (65-108) Arterial Blood HCO3 19mmol/L (21-28) 20mmol/L (21-28) Arterial Blood Base Excess -5mmol/L (-3-3) -2mmol/L (-3-3) FiO2 45 40 Sodium Level 138mmol/L (136-145) Potassium Level 2.8mmol/L (3.5-5.1) Chloride Level 106mmol/L (98-107) Carbon Dioxide Level 20mmol/L (21-32) Anion Gap 12 (6-14) Blood Urea Nitrogen 11mg/dL (8-26) Creatinine 0.6mg/dL (0.7-1.3) Estimated GFR (Cockcroft-Gault) 136.5 BUN/Creatinine Ratio 18 (6-20) Glucose Level 141mg/dL (70-99) Calcium Level 8.0mg/dL (8.5-10.1) Phosphorus Level 2.5mg/dL (2.6-4.7) Magnesium Level 1.6mg/dL (1.8-2.4) Total Bilirubin 0.9mg/dL (0.2-1.0) Aspartate Amino Transf (AST/SGOT) 49U/L (15-37) Alanine Aminotransferase (ALT/SGPT) 28U/L (16-63) Alkaline Phosphatase 49U/L (46-116) Total Protein 5.9g/dL (6.4-8.2) Albumin 2.2g/dL (3.4-5.0) Albumin/Globulin Ratio 0.6 (1.0-1.7) Medications Current Medications Multivitamins/ Minerals/Folic Acid/Thiamine HCl/ Sodium Chloride (Infuvite Adult / Iv Sodium Chloride 0.9% 1000ml Bag) 1,011.2 ml @ 1,000 mls/ hr 1X ONCE IV Last administered on 12/15/16t 18:53; Start 12/15/16 at 18:45; Stop 12/15/16 at 19: 45; Status DC Ondansetron HCl 4 mg 4 mg 1X ONCE IV ; Start 12/15/16 at 18:45; Stop 12/15/16 at 18:46; Status DC Propofol 0 ml @ As Directed STK-MED ONCE IV ; Start 12/15/16 at 19:57; Stop at 19:58; Status DC Propofol (Diprivan) 50 ml @ As Directed STK-MED ONCE IV ; Start 12/15/16 at 19:57 ; Stop 12/15/16 at 19:58; Status DC Lidocaine HCl 100 mg STK-MED ONCE .ROUTE ; Start 12/15/16 at 20:45; Stop 12/15/16 at 20:46; Status DC Fentanyl Citrate (Fentanyl 2ml Vial) 100 mcg STK-MED ONCE .ROUTE ; Start at 20:46; Stop 12/15/16 at 20:47; Status DC Rocuronium [place] (Zemuron) 50 mg STK-MED ONCE .ROUTE ; Start 12/15/16 at 20:46 ; Stop 12/15/16 at 20:47; Status DC Ondansetron HCl 4 mg 4 mg PRN Q8HRS PRN IV NAUSEA/VOMITING; Start 12/15/16 at 20 :45; Stop 12/15/16 at 23:44; Status DC Sodium Chloride (Iv Sodium Chloride 0.9% 1000ml Bag) 1,000 ml @ 100 mls/hr Q10H IV Last administered on 12/16/16 06:45; Start 12/15/16 at 20:45; Stop 08/22 at 07:25; Status DC Acetaminophen (Tylenol) 650 mg PRN Q4HRS PRN PO FEVER Last administered on 12/16 16:43; Start 12/15/16 at 20:45; Stop 12/16/16 at 20:44; Status DC Etomidate (Amidate) 20 mg 1X ONCE IV Last administered on 12/15/16 19:51; Start 12/15/16 at 20:45; Stop 12/15/16 at 20:53; Status DC Succinylcholine Chloride 100 mg 100 mg 1X ONCE IV Last administered on 19:52; Start 12/15/16 at 20:45; Stop 12/15/16 at 20:53; Status DC Bacitracin/Sodium Chloride (Iv Sodium Chloride 0.9% 1000ml Bag) 1,000 ml @ 1, 000 mls/hr 1X PERIOP ONCE IRR Last administered on 12/15/16 22:05; Start at 21:00; Stop 12/15/16 at 21:59; Status DC Cellulose 1 each STK-MED ONCE .ROUTE Last administered on 12/15/16 22:05; Start 12/15/16 at 20:58; Stop 12/15/16 at 20:59; Status DC Bupivacaine HCl/ Epinephrine Bitart (Sensorcain-Mpf Epi 0.5%-1:018327) 30 ml STK -MED ONCE .ROUTE Last administered on 12/15/16 22:05; Start 12/15/16 at 20:58; Stop 12/15/16 at 20:59; Status DC Gelatin (Gelfoam Size 100) 1 each STK-MED ONCE .ROUTE Last administered on 12/15 22:05; Start 12/15/16 at 20:58; Stop 12/15/16 at 20:59; Status DC Thrombin 85283 unit 20,000 unit STK-MED ONCE TP Last administered on 12/15/16 22:05; Start 12/15/16 at 20:58; Stop 12/15/16 at 20:59; Status DC Propofol (Diprivan) 20 ml @ As Directed STK-MED ONCE IV ; Start 12/15/16 at 21:06 ; Stop 12/15/16 at 21:07; Status DC Desflurane 60 ml 60 ml STK-MED ONCE IH ; Start 12/15/16 at 21:49; Stop 12/15/16 at 21:50; Status DC Cefazolin Sodium/ Dextrose 50 ml @ As Directed STK-MED ONCE IV ; Start 12/15/16 at 21:52; Stop 12/15/16 at 21:53; Status DC Mannitol (Mannitol Iv Soln) 500 ml @ As Directed STK-MED ONCE IV ; Start at 21:53; Stop 12/15/16 at 21:54; Status DC Phenylephrine HCl 1 mg 1 mg STK-MED ONCE IV ; Start 12/15/16 at 21:55; Stop at 21:56; Status DC Levetiracetam/ Sodium Chloride (Keppra/Iv Sodium Chloride 0.9% 100ml) 100 ml @ 400 mls/hr 1X ONCE IV Last administered on 12/15/16t 22:30; Start 12/15/16 at 22 :15; Stop 12/15/16 at 22:29; Status DC Ondansetron HCl (Zofran) 4 mg PRN Q6HRS PRN IV Nausea; Start 12/15/16 at 22:30; Stop 12/16/16 at 14:48; Status DC Fentanyl Citrate (Fentanyl 2ml Vial) 25 mcg PRN Q5MIN PRN IV MILD PAIN; Start 12/15/16 at 22:30; Stop 12/16/16 at 13:00; Status DC Fentanyl Citrate (Fentanyl 2ml Vial) 50 mcg PRN Q5MIN PRN IV MODERATE PAIN; Start 12/15/16 at 22:30; Stop 12/16/16 at 13:00; Status DC Morphine Sulfate 1 mg 1 mg PRN Q10MIN PRN IV SEVERE PAIN; Start 12/15/16 at 22: 30; Stop 12/16/16 at 13:08; Status DC Lactated Ringer's (Iv Lactated Ringers) 1,000 ml @ 0 mls/hr Q0M IV ; Start 12/15 at 22:30; Stop 12/16/16 at 13:08; Status DC Lidocaine HCl 2 ml 1X PRN PRN ID IV START; Start 12/15/16 at 22:30; Stop at 13:08; Status DC Hydromorphone HCl (Dilaudid) 0.5 mg PRN Q10MIN PRN IV SEV PAIN,Second choice; Start 12/15/16 at 22:30; Stop 12/16/16 at 13:01; Status DC Prochlorperazine Edisylate 5 mg 5 mg PACU PRN PRN IV NAUSEA; Start 12/15/16 at 22:30; Stop 12/16/16 at 13:08; Status DC Propofol 100 ml @ As Directed STK-MED ONCE IV ; Start 12/15/16 at 23:13; Stop at 23:14; Status DC Nicardipine HCl/ Sodium Chloride (Cardene/Iv Sodium Chloride 0.9% 250ml) 270 ml @ 27 mls/hr TITRATE PRN IV PER PROTOCOL; Start 12/15/16 at 23:30 Diphenhydramine HCl (Benadryl) 25 mg PRN Q6HRS PRN PO ITCHING; Start 12/15/16 at 23:30 Diphenhydramine HCl 25 mg 25 mg PRN Q6HRS PRN IV ITCHING; Start 12/15/16 at 23: 30 Levetiracetam/ Sodium Chloride (Keppra/Iv Sodium Chloride 0.9% 100ml) 105 ml @ 400 mls/hr Q12HR IV Last administered on 12/19/16 08:48; Start 12/16/16 at 09: 00 Sodium Chloride (Normal Saline Flush) 3 ml QSHIFT PRN IV AFTER MEDS AND BLOOD DRAWS; Start 12/15/16 at 23:30 Dextrose 12.5 gm PRN Q15MIN PRN IV SEE COMMENTS; Start 12/15/16 at 23:30 Magnesium Hydroxide (Milk Of Magnesia) 2,400 mg PRN Q12HR PRN PO CONSTIPATION; Start 12/15/16 at 23:30 Ondansetron HCl 4 mg 4 mg PRN Q6HRS PRN IV NAUESA, 1ST CHOICE; Start 12/15/16 at 23:30 Cefazolin Sodium 1 gm/Sodium Chloride 50 ml @ 100 mls/hr Q8HRS IV Last administered on 12/16/16t 21:05; Start 12/16/16 at 06:00; Stop 12/16/16 at 22:29 ; Status DC Potassium Chloride/Dextrose/ Sod Cl (KCl 20 Meq In D5W-1/2 NS) 1,000 ml @ 75 mls/hr [id number] IV Last administered on 12/18/16 18:18; Start 12/15/16 at 23:30 Fentanyl Citrate (Fentanyl 2ml Vial) 25 mcg PRN Q1HR PRN IV PAIN Last administered on 12/18/16 12:01; Start 12/15/16 at 23:30 Fentanyl Citrate (Fentanyl 2ml Vial) 50 mcg PRN Q1HR PRN IV PAIN Last administered on 12/19/16 04:35; Start 12/15/16 at 23:30 Info (Do NOT chart on this placeholder) 1 each 1X ONCE MC ; Start 12/16/16 at 04:00; Stop 12/16/16 at 04:01; Status UNV Pneumococcal Polyvalent Vaccine (Do NOT chart on this placeholder) 1 each 1X ONCE MC ; Start 12/16/16 at 04:00; Stop 12/16/16 at 04:01; Status UNV Influenza Virus Vaccine Quadrival (Fluarix Quad 8420-7225 Syringe) 0.5 ml ONCE ONCE VAX IM Last administered on 12/17/16 08:49; Start 12/16/16 at 09:00; Stop 12/16/16 at 09:01; Status DC Pneumococcal Polyvalent Vaccine 0.5 ml 0.5 ml ONCE ONCE VAX IM Last administered on 12/17/16 08:47; Start 12/16/16 at 09:00; Stop 12/16/16 at 09:01 ; Status DC Propofol 100 ml @ 0 mls/hr CONT PRN IV SEE I/O RECORD Last administered on 12/19 02:29; Start 12/16/16 at 04:30 Propofol 100 ml @ 0 mls/hr CONT PRN IV SEE I/O RECORD; Start 12/16/16 at 00:00 ; Stop 12/16/16 at 03:00; Status Cancel Propofol 100 ml @ 0 mls/hr CONT PRN IV SEE I/O RECORD Last administered on 20:00; Start 12/16/16 at 00:00; Stop 12/16/16 at 09:04; Status DC Multivitamins/ Minerals/Thiamine HCl/Folic Acid/ Sodium Chloride (Infuvite Adult / Iv Sodium Chloride 0.9% 1000ml Bag) 1,011.2 ml @ 100 mls/ hr DAILY IV Last administered on 12/19/16 08:48; Start 12/16/16 at 10:00; Stop 12/22/16 at 09:59 Lorazepam (Ativan) 2 mg PRN Q1HR PRN IV For CIWA 8-14; Start 12/16/16 at 10:00 Lorazepam (Ativan) 4 mg PRN Q1HR PRN IV For CIWA 15 or greater; Start 12/16/16 at 10:00 Piperacillin Sod/ Tazobactam Sod (Zosyn Per Pharmacy) 1 each PRN DAILY PRN MC SEE COMMENTS; Start 12/16/16 at 10:30; Stop 12/18/16 at 11:54; Status DC Vancomycin HCl 1 each 1 each PRN DAILY PRN MC SEE COMMENTS Last administered on 12/18/16 04:00; Start 12/16/16 at 10:30; Stop 12/18/16 at 11:54; Status DC Vancomycin HCl 1.5 gm/Sodium Chloride 500 ml @ 250 mls/hr 1X ONCE IV Last administered on 12/16/16 14:08; Start 12/16/16 at 11:00; Stop 12/16/16 at 12:59 ; Status DC Piperacillin Sod/ Tazobactam Sod/ Sodium Chloride (Zosyn/Iv Sodium Chloride 0.9 % 100ml) 100 ml @ 200 mls/hr Q6HRS IV Last administered on 12/18/16 05:11; Start 12/16/16 at 12:00; Stop 12/18/16 at 11:54; Status DC Propofol 1000 mg 1,000 mg STK-MED ONCE IV ; Start 12/15/16 at 23:00; Stop at 13:28; Status DC Vancomycin HCl/ Sodium Chloride (Iv Sodium Chloride 0.9% 250ml) 250 ml @ 250 mls/hr Q12H IV Last administered on 12/18/16 02:00; Start 12/17/16 at 02:00; Stop 12/18/16 at 03:45; Status DC Vancomycin HCl 1 each 1X ONCE MC Last administered on 12/18/16 01:30; Start 12/18/16 at 01:30; Stop 12/18/16 at 11:54; Status DC Hydralazine HCl (Apresoline) 10 mg PRN Q4HRS PRN IVP ELEVATED BP, SEE COMMENTS Last administered on 12/18/16 10:50; Start 12/17/16 at 12:15 Potassium Chloride 40 meq 40 meq 1X ONCE PO ; Start 12/17/16 at 18:15; Stop 09/22 at 18:16; Status Cancel Potassium Chloride 50 ml @ 50 mls/hr Q1H IV Last administered on 12/18/16 00: 55; Start 12/17/16 at 19:00; Stop 12/17/16 at 20:59; Status DC Vancomycin HCl/ Sodium Chloride (Iv Sodium Chloride 0.9% 250ml) 250 ml @ 250 mls/hr Q8H IV Last administered on 12/18/16 03:54; Start 12/18/16 at 04:00; Stop 12/18/16 at 11:54; Status DC Vancomycin HCl 1 each 1X ONCE MC ; Start 12/19/16 at 03:30; Stop 12/19/16 at 03 :30; Status DC Budesonide (Pulmicort) 0.5 mg RTBID NEB Last administered on 12/19/16 08:24; Start 12/18/16 at 08:00 Vecuronium Cayucos 6 mg 6 mg 1X ONCE IV Last administered on 12/18/16 13:09; Start 12/18/16 at 13:00; Stop 12/18/16 at 13:01; Status DC Magnesium Sulfate/ Dextrose 50 ml @ 25 mls/hr 1X ONCE IV Last administered on 12/18/16 15:34; Start 12/18/16 at 15:00; Stop 12/18/16 at 16:59; Status DC Potassium Chloride (KCl Premix 10meq) 100 ml @ 100 mls/hr Q1H IV Last administered on 12/18/16 18:17; Start 12/18/16 at 15:00; Stop 12/18/16 at 18:59 ; Status DC Active Scripts Active Reported Benazepril Hcl 40 Mg Tablet 1 Tab PO DAILY Amlodipine Besylate 5 Mg Tablet 5 Mg PO DAILY Vitals/I & O Vital Sign - Last 24 Hours 12/18/16 12/18/16 12/18/16 12/18/16 10:00 10:49 10:50 11:00 Pulse 66 97 73 Resp 5 29 20 B/P 123/69 156/107 153/81 Pulse Ox 100 97 98 O2 Delivery Ventilator Ventilator Ventilator 12/18/16 12/18/16 12/18/16 12/18/16 11:27 12:00 12:00 12:01 Pulse 121 Resp 28 30 B/P 163/90 Pulse Ox 100 91 93 O2 Delivery Ventilator Mechanical Ventilator Ventilator 12/18/16 12/18/16 12/18/16 12/18/16 12:47 12:59 14:00 15:00 Pulse 128 86 71 Resp 30 31 17 17 B/P 128/72 109/58 95/54 Pulse Ox 96 95 100 100 O2 Delivery Ventilator Ventilator Ventilator Ventilator 12/18/16 12/18/16 12/18/16 12/18/16 16:00 16:00 16:58 17:00 Temp 97.3 97.3 Pulse 70 71 Resp 17 18 B/P 95/55 113/66 Pulse Ox 100 100 100 O2 Delivery Ventilator Mechanical Ventilator Ventilator Ventilator 12/18/16 12/18/16 12/18/16 12/18/16 18:00 19:00 19:46 20:00 Temp 100.0 100.0 Pulse 69 69 Resp 17 18 B/P 119/72 100/72 Pulse Ox 100 100 100 O2 Delivery Ventilator Ventilator Ventilator Mechanical Ventilator 12/18/16 12/18/16 12/18/16 12/18/16 20:00 21:00 22:00 22:25 Pulse 68 68 63 Resp 18 18 18 18 B/P 98/58 100/61 111/61 Pulse Ox 100 100 100 O2 Delivery Ventilator Ventilator Ventilator Ventilator 12/18/16 12/18/16 12/19/16 12/19/16 23:00 23:59 00:00 00:00 Temp 98.7 98.7 Pulse 68 57 Resp 20 20 B/P 99/61 99/57 Pulse Ox 100 100 100 O2 Delivery Ventilator Mechanical Ventilator Ventilator Ventilator 12/19/16 12/19/16 12/19/16 12/19/16 01:00 02:00 03:00 03:46 Pulse 58 58 57 Resp 20 20 20 B/P 107/61 100/61 110/62 Pulse Ox 100 100 100 100 O2 Delivery Ventilator Ventilator Ventilator Ventilator 12/19/16 12/19/16 12/19/16 12/19/16 04:00 04:00 04:35 05:00 Temp 98.5 98.5 Pulse 62 57 Resp 20 32 20 B/P 136/90 122/62 Pulse Ox 100 94 100 O2 Delivery Mechanical Ventilator Ventilator Ventilator Ventilator 12/19/16 12/19/16 12/19/16 12/19/16 05:05 06:00 07:00 08:00 Temp 98.6 98.6 Pulse 58 74 Resp 20 20 18 B/P 120/70 133/73 Pulse Ox 100 100 100 O2 Delivery Ventilator Ventilator Ventilator Ventilator 12/19/16 12/19/16 12/19/16 08:00 08:28 09:05 Pulse 74 60 Resp 20 17 B/P 133/81 124/67 Pulse Ox 100 100 O2 Delivery Ventilator Mechanical Ventilator Ventilator Intake and Output 12/18/16 12/18/16 12/19/16 15:00 23:00 07:00 Intake Total 100 ml 2054.8 ml 1224 ml Output Total 303 ml 247 ml 547 ml Balance -203 ml 1807.8 ml 677 ml ELA DUARTE INTERNAL REVIEW AND AUDIT COMPLIANCE Dec 19, 2016 09:56
[2016-12-19] MEDS ORDERED: TPN PER PHARMACY MC PRN (10:00)
[2016-12-19] MEDS: CEFAZOLIN SODIUM 1 GM in IV NORMAL SALINE 50ML 50 ML IV SCH ×3 (10:04→21:24)
[2016-12-19 10:09] LABS: CALCIUM 8.4 mg/dL (8.5-10.1); CREATININE 0.6 mg/dL (0.7-1.3); GFR 136.5; POTASSIUM 3.3 mmol/L (3.5-5.1)
[2016-12-19 10:14] LABS: ALBUMIN 2.1 g/dL (3.4-5.0); ALBUMIN/GLOBULIN RATIO 0.6 (1.0-1.7); TOTAL BILIRUBIN 0.7 mg/dL (0.2-1.0); TOTAL PROTEIN 5.6 g/dL (6.4-8.2)
--- NOTE | 2016-12-19 10:20 | RAD ---
Portable chest, 12/19/2016: History: Respiratory failure Comparison is made to yesterday's study. An ET tube has its tip located well above the rico. An NG tube extends into the stomach. The heart appears to be within normal limits in size. The pulmonary vascularity now appears mildly congested with loss of vascular margination. No pulmonary consolidation is seen. There is no evidence of pleural fluid. IMPRESSION: 1. The ET tube and NG tube are in satisfactory positions. 2. Mild vascular congestion.
[2016-12-19] MEDS ORDERED: MAGNESIUM SULFATE 2GM 50 ML IV ONE (10:30)
--- NOTE | 2016-12-19 12:55 | PDOC ---
PROGRESS NOTES Chief Complaint Chief Complaint cc: ams A/P Right frontal craniotomy with evacuation of intracerebral hematoma and placement of external ventricular drain in the right lateral ventricle.POD 4 Alcohol abuse Respiratory failure on Mechanical ventilation Elective Encephalopathy due to above Leucocytosis better Hyponatremia labs pending fever resolved. Plan On mechanical ventilation, off sedation, SBT ok, but not waking up totally CIWA protocol for alcohol withdrawal precaution Stop abx if Pulmonolgy agrees, no sings of infection seen. NS following Keppra for seizure precautions BP goal < SBP 130 Replace IV potassium and Magnesium GI prophylaxis NO dvt prophylaxis Tube feeds family at bedside, all questions answered prognosis guarded. History of Present Illness History of Present Illness intubated. off sedation now, moving right arm, but not open eyes or follow commands Vitals Vitals Vital Signs Date Time Temp Pulse Resp B/P Pulse Ox O2 Delivery O2 Flow Rate FiO2 12/19/16 12:00 100 Ventilator 12/19/16 12:00 66 17 152/74 12/19/16 07:00 98.6 98.6 Physical Exam General: Other (intubated) Heart: Normal S1, Normal S2 Lungs: Clear Abdomen: Normal bowel sounds, Soft Extremities: No clubbing, No cyanosis Skin: Other (dressing intact and clean) Labs LABS Laboratory Tests Test 12/18/16 13:20 12/19/16 08:00 12/19/16 09:45 Sodium Level 138mmol/L (136-145) 139mmol/L (136-145) Potassium Level 2.8mmol/L (3.5-5.1) 3.3mmol/L (3.5-5.1) Chloride Level 106mmol/L (98-107) 106mmol/L (98-107) Carbon Dioxide Level 20mmol/L (21-32) 24mmol/L (21-32) Anion Gap 12 (6-14) 9 (6-14) Blood Urea Nitrogen 11mg/dL (8-26) 15mg/dL (8-26) Creatinine 0.6mg/dL (0.7-1.3) 0.6mg/dL (0.7-1.3) Estimated GFR (Cockcroft-Gault) 136.5 136.5 BUN/Creatinine Ratio 18 (6-20) 25 (6-20) Glucose Level 141mg/dL (70-99) 100mg/dL (70-99) Calcium Level 8.0mg/dL (8.5-10.1) 8.4mg/dL (8.5-10.1) Phosphorus Level 2.5mg/dL (2.6-4.7) Magnesium Level 1.6mg/dL (1.8-2.4) Total Bilirubin 0.9mg/dL (0.2-1.0) 0.7mg/dL (0.2-1.0) Aspartate Amino Transf (AST/SGOT) 49U/L (15-37) 38U/L (15-37) Alanine Aminotransferase (ALT/SGPT) 28U/L (16-63) 24U/L (16-63) Alkaline Phosphatase 49U/L (46-116) 39U/L (46-116) Total Protein 5.9g/dL (6.4-8.2) 5.6g/dL (6.4-8.2) Albumin 2.2g/dL (3.4-5.0) 2.1g/dL (3.4-5.0) Albumin/Globulin Ratio 0.6 (1.0-1.7) 0.6 (1.0-1.7) O2 Saturation 96% (92-99) Arterial Blood pH 7.49 (7.35-7.45) Arterial Blood pCO2 at Patient Temp 26mmHg (35-46) Arterial Blood pO2 at Patient Temp 89mmHg (65-108) Arterial Blood HCO3 20mmol/L (21-28) Arterial Blood Base Excess -2mmol/L (-3-3) FiO2 40 Review of Systems Review of Systems no fever, chills Assessment and Plan Assessmemt and Plan Problems Medical Problems: (1) Intraparenchymal hematoma of brain Status: Acute Problems: Comment Review of Relevant I have reviewed the following items jose alfredo (where applicable) has been applied. Labs Laboratory Tests Test 12/17/16 13:50 12/18/16 01:50 12/18/16 05:00 12/18/16 08:08 White Blood Count 12.7x10^3/uL (4.0-11.0) Red Blood Count 3.82x10^6/uL (4.30-5.70) Hemoglobin 12.5g/dL (13.0-17.5) Hematocrit 37.6% (39.0-53.0) Mean Corpuscular Volume 98fL (79-100) Mean Corpuscular Hemoglobin 33pg (25-35) Mean Corpuscular Hemoglobin Concent 33g/dL (31-37) Red Cell Distribution Width 12.7% (11.5-14.5) Platelet Count 160x10^3/uL (140-400) Sodium Level 136mmol/L (136-145) 141mmol/L (136-145) Potassium Level 3.0mmol/L (3.5-5.1) 3.0mmol/L (3.5-5.1) Chloride Level 104mmol/L (98-107) 110mmol/L (98-107) Carbon Dioxide Level 22mmol/L (21-32) 19mmol/L (21-32) Anion Gap 10 (6-14) 12 (6-14) Blood Urea Nitrogen 7mg/dL (8-26) 10mg/dL (8-26) Creatinine 0.6mg/dL (0.7-1.3) 0.5mg/dL (0.7-1.3) Estimated GFR (Cockcroft-Gault) 136.5 168.5 Glucose Level 129mg/dL (70-99) 93mg/dL (70-99) Calcium Level 8.7mg/dL (8.5-10.1) 7.2mg/dL (8.5-10.1) Vancomycin Level Trough 2.5mcg/mL (10.0-20.0) Vancomycin Last Dose Date Vancomycin Last Dose Time BUN/Creatinine Ratio 20 (6-20) Magnesium Level 1.5mg/dL (1.8-2.4) Total Bilirubin 0.9mg/dL (0.2-1.0) Aspartate Amino Transf (AST/SGOT) 44U/L (15-37) Alanine Aminotransferase (ALT/SGPT) 22U/L (16-63) Alkaline Phosphatase 29U/L (46-116) Total Protein 4.6g/dL (6.4-8.2) Albumin 2.0g/dL (3.4-5.0) Albumin/Globulin Ratio 0.8 (1.0-1.7) O2 Saturation 95% (92-99) Arterial Blood pH 7.51 (7.35-7.45) Arterial Blood pCO2 at Patient Temp 27mmHg (35-46) Arterial Blood pO2 at Patient Temp 77mmHg (65-108) Arterial Blood HCO3 21mmol/L (21-28) Arterial Blood Base Excess -1mmol/L (-3-3) FiO2 35 Test 12/18/16 10:00 12/18/16 12:20 12/18/16 13:20 12/19/16 08:00 White Blood Count 9.9x10^3/uL (4.0-11.0) Red Blood Count 3.74x10^6/uL (4.30-5.70) Hemoglobin 12.4g/dL (13.0-17.5) Hematocrit 37.1% (39.0-53.0) Mean Corpuscular Volume 99fL (79-100) Mean Corpuscular Hemoglobin 33pg (25-35) Mean Corpuscular Hemoglobin Concent 33g/dL (31-37) Red Cell Distribution Width 12.6% (11.5-14.5) Platelet Count 134x10^3/uL (140-400) O2 Saturation 87% (92-99) 96% (92-99) Arterial Blood pH 7.36 (7.35-7.45) 7.49 (7.35-7.45) Arterial Blood pCO2 at Patient Temp 35mmHg (35-46) 26mmHg (35-46) Arterial Blood pO2 at Patient Temp 58mmHg (65-108) 89mmHg (65-108) Arterial Blood HCO3 19mmol/L (21-28) 20mmol/L (21-28) Arterial Blood Base Excess -5mmol/L (-3-3) -2mmol/L (-3-3) FiO2 45 40 Sodium Level 138mmol/L (136-145) Potassium Level 2.8mmol/L (3.5-5.1) Chloride Level 106mmol/L (98-107) Carbon Dioxide Level 20mmol/L (21-32) Anion Gap 12 (6-14) Blood Urea Nitrogen 11mg/dL (8-26) Creatinine 0.6mg/dL (0.7-1.3) Estimated GFR (Cockcroft-Gault) 136.5 BUN/Creatinine Ratio 18 (6-20) Glucose Level 141mg/dL (70-99) Calcium Level 8.0mg/dL (8.5-10.1) Phosphorus Level 2.5mg/dL (2.6-4.7) Magnesium Level 1.6mg/dL (1.8-2.4) Total Bilirubin 0.9mg/dL (0.2-1.0) Aspartate Amino Transf (AST/SGOT) 49U/L (15-37) Alanine Aminotransferase (ALT/SGPT) 28U/L (16-63) Alkaline Phosphatase 49U/L (46-116) Total Protein 5.9g/dL (6.4-8.2) Albumin 2.2g/dL (3.4-5.0) Albumin/Globulin Ratio 0.6 (1.0-1.7) Test 12/19/16 09:45 Sodium Level 139mmol/L (136-145) Potassium Level 3.3mmol/L (3.5-5.1) Chloride Level 106mmol/L (98-107) Carbon Dioxide Level 24mmol/L (21-32) Anion Gap 9 (6-14) Blood Urea Nitrogen 15mg/dL (8-26) Creatinine 0.6mg/dL (0.7-1.3) Estimated GFR (Cockcroft-Gault) 136.5 BUN/Creatinine Ratio 25 (6-20) Glucose Level 100mg/dL (70-99) Calcium Level 8.4mg/dL (8.5-10.1) Total Bilirubin 0.7mg/dL (0.2-1.0) Aspartate Amino Transf (AST/SGOT) 38U/L (15-37) Alanine Aminotransferase (ALT/SGPT) 24U/L (16-63) Alkaline Phosphatase 39U/L (46-116) Total Protein 5.6g/dL (6.4-8.2) Albumin 2.1g/dL (3.4-5.0) Albumin/Globulin Ratio 0.6 (1.0-1.7) Laboratory Tests Test 12/18/16 13:20 12/19/16 08:00 12/19/16 09:45 Sodium Level 138mmol/L (136-145) 139mmol/L (136-145) Potassium Level 2.8mmol/L (3.5-5.1) 3.3mmol/L (3.5-5.1) Chloride Level 106mmol/L (98-107) 106mmol/L (98-107) Carbon Dioxide Level 20mmol/L (21-32) 24mmol/L (21-32) Anion Gap 12 (6-14) 9 (6-14) Blood Urea Nitrogen 11mg/dL (8-26) 15mg/dL (8-26) Creatinine 0.6mg/dL (0.7-1.3) 0.6mg/dL (0.7-1.3) Estimated GFR (Cockcroft-Gault) 136.5 136.5 BUN/Creatinine Ratio 18 (6-20) 25 (6-20) Glucose Level 141mg/dL (70-99) 100mg/dL (70-99) Calcium Level 8.0mg/dL (8.5-10.1) 8.4mg/dL (8.5-10.1) Phosphorus Level 2.5mg/dL (2.6-4.7) Magnesium Level 1.6mg/dL (1.8-2.4) Total Bilirubin 0.9mg/dL (0.2-1.0) 0.7mg/dL (0.2-1.0) Aspartate Amino Transf (AST/SGOT) 49U/L (15-37) 38U/L (15-37) Alanine Aminotransferase (ALT/SGPT) 28U/L (16-63) 24U/L (16-63) Alkaline Phosphatase 49U/L (46-116) 39U/L (46-116) Total Protein 5.9g/dL (6.4-8.2) 5.6g/dL (6.4-8.2) Albumin 2.2g/dL (3.4-5.0) 2.1g/dL (3.4-5.0) Albumin/Globulin Ratio 0.6 (1.0-1.7) 0.6 (1.0-1.7) O2 Saturation 96% (92-99) Arterial Blood pH 7.49 (7.35-7.45) Arterial Blood pCO2 at Patient Temp 26mmHg (35-46) Arterial Blood pO2 at Patient Temp 89mmHg (65-108) Arterial Blood HCO3 20mmol/L (21-28) Arterial Blood Base Excess -2mmol/L (-3-3) FiO2 40 Medications Current Medications Multivitamins/ Minerals/Folic Acid/Thiamine HCl/ Sodium Chloride (Infuvite Adult / Iv Sodium Chloride 0.9% 1000ml Bag) 1,011.2 ml @ 1,000 mls/ hr 1X ONCE IV Last administered on 12/15/16 18:53; Start 12/15/16 at 18:45; Stop 12/15/16 at 19: 45; Status DC Ondansetron HCl 4 mg 4 mg 1X ONCE IV ; Start 12/15/16 at 18:45; Stop 12/15/16 at 18:46; Status DC Propofol 0 ml @ As Directed STK-MED ONCE IV ; Start 12/15/16 at 19:57; Stop at 19:58; Status DC Propofol (Diprivan) 50 ml @ As Directed STK-MED ONCE IV ; Start 12/15/16 at 19:57 ; Stop 12/15/16 at 19:58; Status DC Lidocaine HCl 100 mg STK-MED ONCE .ROUTE ; Start 12/15/16 at 20:45; Stop 12/15/16 at 20:46; Status DC Fentanyl Citrate (Fentanyl 2ml Vial) 100 mcg STK-MED ONCE .ROUTE ; Start at 20:46; Stop 12/15/16 at 20:47; Status DC Rocuronium [place] (Zemuron) 50 mg STK-MED ONCE .ROUTE ; Start 12/15/16 at 20:46 ; Stop 12/15/16 at 20:47; Status DC Ondansetron HCl 4 mg 4 mg PRN Q8HRS PRN IV NAUSEA/VOMITING; Start 12/15/16 at 20 :45; Stop 12/15/16 at 23:44; Status DC Sodium Chloride (Iv Sodium Chloride 0.9% 1000ml Bag) 1,000 ml @ 100 mls/hr Q10H IV Last administered on 12/16/16 06:45; Start 12/15/16 at 20:45; Stop 08/22 at 07:25; Status DC Acetaminophen (Tylenol) 650 mg PRN Q4HRS PRN PO FEVER Last administered on 12/16 16:43; Start 12/15/16 at 20:45; Stop 12/16/16 at 20:44; Status DC Etomidate (Amidate) 20 mg 1X ONCE IV Last administered on 12/15/16 19:51; Start 12/15/16 at 20:45; Stop 12/15/16 at 20:53; Status DC Succinylcholine Chloride 100 mg 100 mg 1X ONCE IV Last administered on 19:52; Start 12/15/16 at 20:45; Stop 12/15/16 at 20:53; Status DC Bacitracin/Sodium Chloride (Iv Sodium Chloride 0.9% 1000ml Bag) 1,000 ml @ 1, 000 mls/hr 1X PERIOP ONCE IRR Last administered on 12/15/16 22:05; Start at 21:00; Stop 12/15/16 at 21:59; Status DC Cellulose 1 each STK-MED ONCE .ROUTE Last administered on 12/15/16 22:05; Start 12/15/16 at 20:58; Stop 12/15/16 at 20:59; Status DC Bupivacaine HCl/ Epinephrine Bitart (Sensorcain-Mpf Epi 0.5%-1:520597) 30 ml STK -MED ONCE .ROUTE Last administered on 12/15/16 22:05; Start 12/15/16 at 20:58; Stop 12/15/16 at 20:59; Status DC Gelatin (Gelfoam Size 100) 1 each STK-MED ONCE .ROUTE Last administered on 12/15 22:05; Start 12/15/16 at 20:58; Stop 12/15/16 at 20:59; Status DC Thrombin 84368 unit 20,000 unit STK-MED ONCE TP Last administered on 12/15/16 22:05; Start 12/15/16 at 20:58; Stop 12/15/16 at 20:59; Status DC Propofol (Diprivan) 20 ml @ As Directed STK-MED ONCE IV ; Start 12/15/16 at 21:06 ; Stop 12/15/16 at 21:07; Status DC Desflurane 60 ml 60 ml STK-MED ONCE IH ; Start 12/15/16 at 21:49; Stop 12/15/16 at 21:50; Status DC Cefazolin Sodium/ Dextrose 50 ml @ As Directed STK-MED ONCE IV ; Start 12/15/16 at 21:52; Stop 12/15/16 at 21:53; Status DC Mannitol (Mannitol Iv Soln) 500 ml @ As Directed STK-MED ONCE IV ; Start at 21:53; Stop 12/15/16 at 21:54; Status DC Phenylephrine HCl 1 mg 1 mg STK-MED ONCE IV ; Start 12/15/16 at 21:55; Stop at 21:56; Status DC Levetiracetam/ Sodium Chloride (Keppra/Iv Sodium Chloride 0.9% 100ml) 100 ml @ 400 mls/hr 1X ONCE IV Last administered on 12/15/16t 22:30; Start 12/15/16 at 22 :15; Stop 12/15/16 at 22:29; Status DC Ondansetron HCl (Zofran) 4 mg PRN Q6HRS PRN IV Nausea; Start 12/15/16 at 22:30; Stop 12/16/16 at 14:48; Status DC Fentanyl Citrate (Fentanyl 2ml Vial) 25 mcg PRN Q5MIN PRN IV MILD PAIN; Start 12/15/16 at 22:30; Stop 12/16/16 at 13:00; Status DC Fentanyl Citrate (Fentanyl 2ml Vial) 50 mcg PRN Q5MIN PRN IV MODERATE PAIN; Start 12/15/16 at 22:30; Stop 12/16/16 at 13:00; Status DC Morphine Sulfate 1 mg 1 mg PRN Q10MIN PRN IV SEVERE PAIN; Start 12/15/16 at 22: 30; Stop 12/16/16 at 13:08; Status DC Lactated Ringer's (Iv Lactated Ringers) 1,000 ml @ 0 mls/hr Q0M IV ; Start 12/15 at 22:30; Stop 12/16/16 at 13:08; Status DC Lidocaine HCl 2 ml 1X PRN PRN ID IV START; Start 12/15/16 at 22:30; Stop at 13:08; Status DC Hydromorphone HCl (Dilaudid) 0.5 mg PRN Q10MIN PRN IV SEV PAIN,Second choice; Start 12/15/16 at 22:30; Stop 12/16/16 at 13:01; Status DC Prochlorperazine Edisylate 5 mg 5 mg PACU PRN PRN IV NAUSEA; Start 12/15/16 at 22:30; Stop 12/16/16 at 13:08; Status DC Propofol 100 ml @ As Directed STK-MED ONCE IV ; Start 12/15/16 at 23:13; Stop at 23:14; Status DC Nicardipine HCl/ Sodium Chloride (Cardene/Iv Sodium Chloride 0.9% 250ml) 270 ml @ 27 mls/hr TITRATE PRN IV PER PROTOCOL; Start 12/15/16 at 23:30 Diphenhydramine HCl (Benadryl) 25 mg PRN Q6HRS PRN PO ITCHING; Start 12/15/16 at 23:30 Diphenhydramine HCl 25 mg 25 mg PRN Q6HRS PRN IV ITCHING; Start 12/15/16 at 23: 30 Levetiracetam/ Sodium Chloride (Keppra/Iv Sodium Chloride 0.9% 100ml) 105 ml @ 400 mls/hr Q12HR IV Last administered on 12/19/16 08:48; Start 12/16/16 at 09: 00 Sodium Chloride (Normal Saline Flush) 3 ml QSHIFT PRN IV AFTER MEDS AND BLOOD DRAWS; Start 12/15/16 at 23:30 Dextrose 12.5 gm PRN Q15MIN PRN IV SEE COMMENTS; Start 12/15/16 at 23:30 Magnesium Hydroxide (Milk Of Magnesia) 2,400 mg PRN Q12HR PRN PO CONSTIPATION; Start 12/15/16 at 23:30 Ondansetron HCl 4 mg 4 mg PRN Q6HRS PRN IV NAUESA, 1ST CHOICE; Start 12/15/16 at 23:30 Cefazolin Sodium 1 gm/Sodium Chloride 50 ml @ 100 mls/hr Q8HRS IV Last administered on 12/16/16 21:05; Start 12/16/16 at 06:00; Stop 12/16/16 at 22:29 ; Status DC Potassium Chloride/Dextrose/ Sod Cl (KCl 20 Meq In D5W-1/2 NS) 1,000 ml @ 75 mls/hr [id number] IV Last administered on 12/18/16 18:18; Start 12/15/16 at 23:30 ; Stop 12/19/16 at 09:48; Status DC Fentanyl Citrate (Fentanyl 2ml Vial) 25 mcg PRN Q1HR PRN IV PAIN Last administered on 12/18/16 12:01; Start 12/15/16 at 23:30 Fentanyl Citrate (Fentanyl 2ml Vial) 50 mcg PRN Q1HR PRN IV PAIN Last administered on 12/19/16 04:35; Start 12/15/16 at 23:30 Info (Do NOT chart on this placeholder) 1 each 1X ONCE MC ; Start 12/16/16 at 04:00; Stop 12/16/16 at 04:01; Status UNV Pneumococcal Polyvalent Vaccine (Do NOT chart on this placeholder) 1 each 1X ONCE MC ; Start 12/16/16 at 04:00; Stop 12/16/16 at 04:01; Status UNV Influenza Virus Vaccine Quadrival (Fluarix Quad 6123-0529 Syringe) 0.5 ml ONCE ONCE VAX IM Last administered on 12/17/16 08:49; Start 12/16/16 at 09:00; Stop 12/16/16 at 09:01; Status DC Pneumococcal Polyvalent Vaccine 0.5 ml 0.5 ml ONCE ONCE VAX IM Last administered on 12/17/16 08:47; Start 12/16/16 at 09:00; Stop 12/16/16 at 09:01 ; Status DC Propofol 100 ml @ 0 mls/hr CONT PRN IV SEE I/O RECORD Last administered on 12/19 02:29; Start 12/16/16 at 04:30 Propofol 100 ml @ 0 mls/hr CONT PRN IV SEE I/O RECORD; Start 12/16/16 at 00:00 ; Stop 12/16/16 at 03:00; Status Cancel Propofol 100 ml @ 0 mls/hr CONT PRN IV SEE I/O RECORD Last administered on 20:00; Start 12/16/16 at 00:00; Stop 12/16/16 at 09:04; Status DC Multivitamins/ Minerals/Thiamine HCl/Folic Acid/ Sodium Chloride (Infuvite Adult / Iv Sodium Chloride 0.9% 1000ml Bag) 1,011.2 ml @ 100 mls/ hr DAILY IV Last administered on 12/19/16 08:48; Start 12/16/16 at 10:00; Stop 12/22/16 at 09:59 Lorazepam (Ativan) 2 mg PRN Q1HR PRN IV For CIWA 8-14; Start 12/16/16 at 10:00 Lorazepam (Ativan) 4 mg PRN Q1HR PRN IV For CIWA 15 or greater; Start 12/16/16 at 10:00 Piperacillin Sod/ Tazobactam Sod (Zosyn Per Pharmacy) 1 each PRN DAILY PRN MC SEE COMMENTS; Start 12/16/16 at 10:30; Stop 12/18/16 at 11:54; Status DC Vancomycin HCl 1 each 1 each PRN DAILY PRN MC SEE COMMENTS Last administered on 12/18/16 04:00; Start 12/16/16 at 10:30; Stop 12/18/16 at 11:54; Status DC Vancomycin HCl 1.5 gm/Sodium Chloride 500 ml @ 250 mls/hr 1X ONCE IV Last administered on 12/16/16 14:08; Start 12/16/16 at 11:00; Stop 12/16/16 at 12:59 ; Status DC Piperacillin Sod/ Tazobactam Sod/ Sodium Chloride (Zosyn/Iv Sodium Chloride 0.9 % 100ml) 100 ml @ 200 mls/hr Q6HRS IV Last administered on 12/18/16 05:11; Start 12/16/16 at 12:00; Stop 12/18/16 at 11:54; Status DC Propofol 1000 mg 1,000 mg STK-MED ONCE IV ; Start 12/15/16 at 23:00; Stop at 13:28; Status DC Vancomycin HCl/ Sodium Chloride (Iv Sodium Chloride 0.9% 250ml) 250 ml @ 250 mls/hr Q12H IV Last administered on 12/18/16 02:00; Start 12/17/16 at 02:00; Stop 12/18/16 at 03:45; Status DC Vancomycin HCl 1 each 1X ONCE MC Last administered on 12/18/16 01:30; Start 12/18/16 at 01:30; Stop 12/18/16 at 11:54; Status DC Hydralazine HCl (Apresoline) 10 mg PRN Q4HRS PRN IVP ELEVATED BP, SEE COMMENTS Last administered on 12/18/16 10:50; Start 12/17/16 at 12:15 Potassium Chloride 40 meq 40 meq 1X ONCE PO ; Start 12/17/16 at 18:15; Stop 09/22 at 18:16; Status Cancel Potassium Chloride 50 ml @ 50 mls/hr Q1H IV Last administered on 12/18/16 00: 55; Start 12/17/16 at 19:00; Stop 12/17/16 at 20:59; Status DC Vancomycin HCl/ Sodium Chloride (Iv Sodium Chloride 0.9% 250ml) 250 ml @ 250 mls/hr Q8H IV Last administered on 12/18/16 03:54; Start 12/18/16 at 04:00; Stop 12/18/16 at 11:54; Status DC Vancomycin HCl 1 each 1X ONCE MC ; Start 12/19/16 at 03:30; Stop 12/19/16 at 03 :30; Status DC Budesonide (Pulmicort) 0.5 mg RTBID NEB Last administered on 12/19/16 08:24; Start 12/18/16 at 08:00 Vecuronium [place] 6 mg 6 mg 1X ONCE IV Last administered on 12/18/16 13:09; Start 12/18/16 at 13:00; Stop 12/18/16 at 13:01; Status DC Magnesium Sulfate/ Dextrose 50 ml @ 25 mls/hr 1X ONCE IV Last administered on 12/18/16 15:34; Start 12/18/16 at 15:00; Stop 12/18/16 at 16:59; Status DC Potassium Chloride 100 ml @ 100 mls/hr Q1H IV Last administered on 12/18/16 18:17; Start 12/18/16 at 15:00; Stop 12/18/16 at 18:59; Status DC Cefazolin Sodium 1 gm/Sodium Chloride 50 ml @ 100 mls/hr Q8HRS IV Last administered on 12/19/16 10:04; Start 12/19/16 at 10:00 Magnesium Sulfate/ Dextrose 50 ml @ 25 mls/hr 1X ONCE IV Last administered on 12/19/16 10:42; Start 12/19/16 at 10:30; Stop 12/19/16 at 12:29; Status DC Sodium Chloride/ Potassium Chloride/ Potassium Phosphate/ Magnesium Sulfate/ Calcium Gluconate/ Multivitamins/ Minerals/Chromium/ Copper/Manganese/ Seleni/Zn /Total Parenteral Nutrition/Amino Acids/Dextrose/ Fat Emulsion Intravenous ( Sodium Chloride/ Potassium Phospha... 87.0013 ml @ 3.625 mls/hr TPN CONT IV ; Start 12/19/16 at 22:00; Stop 12/19/16 at 22:00; Status Cancel Info 1 each 1 each PRN DAILY PRN MC SEE COMMENTS; Start 12/19/16 at 10:00; Stop 12/19/16 at 10:00; Status DC Potassium Chloride (KCl Premix 10meq) 100 ml @ 100 mls/hr Q1H IV ; Start at 11:00; Stop 12/19/16 at 14:59 Active Scripts Active Reported Benazepril Hcl 40 Mg Tablet 1 Tab PO DAILY Amlodipine Besylate 5 Mg Tablet 5 Mg PO DAILY Vitals/I & O Vital Sign - Last 24 Hours 12/18/16 12/18/16 12/18/16 12/18/16 12:59 14:00 15:00 16:00 Temp 97.3 97.3 Pulse 128 86 71 70 Resp 31 17 17 17 B/P 128/72 109/58 95/54 95/55 Pulse Ox 95 100 100 100 O2 Delivery Ventilator Ventilator Ventilator Ventilator 12/18/16 12/18/16 12/18/16 12/18/16 16:00 16:58 17:00 18:00 Pulse 71 69 Resp 18 17 B/P 113/66 119/72 Pulse Ox 100 100 100 O2 Delivery Mechanical Ventilator Ventilator Ventilator Ventilator 12/18/16 12/18/16 12/18/16 12/18/16 19:00 19:46 20:00 20:00 Temp 100.0 100.0 Pulse 69 68 Resp 18 18 B/P 100/72 98/58 Pulse Ox 100 100 100 O2 Delivery Ventilator Ventilator Mechanical Ventilator Ventilator 12/18/16 12/18/16 12/18/16 12/18/16 21:00 22:00 22:25 23:00 Pulse 68 63 68 Resp 18 18 18 20 B/P 100/61 111/61 99/61 Pulse Ox 100 100 100 O2 Delivery Ventilator Ventilator Ventilator Ventilator 12/18/16 12/19/16 12/19/16 12/19/16 23:59 00:00 00:00 01:00 Temp 98.7 98.7 Pulse 57 58 Resp 20 20 B/P 99/57 107/61 Pulse Ox 100 100 100 O2 Delivery Mechanical Ventilator Ventilator Ventilator Ventilator 12/19/16 12/19/16 12/19/16 12/19/16 02:00 03:00 03:46 04:00 Pulse 58 57 Resp 20 20 B/P 100/61 110/62 Pulse Ox 100 100 100 O2 Delivery Ventilator Ventilator Ventilator Mechanical Ventilator 12/19/16 12/19/16 12/19/16 12/19/16 04:00 04:35 05:00 05:05 Temp 98.5 98.5 Pulse 62 57 Resp 20 32 20 20 B/P 136/90 122/62 Pulse Ox 100 94 100 O2 Delivery Ventilator Ventilator Ventilator Ventilator 12/19/16 12/19/16 12/19/16 12/19/16 06:00 07:00 08:00 08:00 Temp 98.6 98.6 Pulse 58 74 74 Resp 20 18 20 B/P 120/70 133/73 133/81 Pulse Ox 100 100 100 100 O2 Delivery Ventilator Ventilator Ventilator Ventilator 12/19/16 12/19/16 12/19/16 12/19/16 08:28 09:05 10:09 11:07 Pulse 60 62 70 Resp 17 17 18 B/P 124/67 126/64 128/67 Pulse Ox 100 100 100 O2 Delivery Mechanical Ventilator Ventilator Ventilator Ventilator 12/19/16 12/19/16 12/19/16 12:00 12:00 12:00 Pulse 66 Resp 17 B/P 152/74 Pulse Ox 100 100 O2 Delivery Mechanical Ventilator Ventilator Ventilator Intake and Output 12/18/16 12/18/16 12/19/16 15:00 23:00 07:00 Intake Total 100 ml 2054.8 ml 1224 ml Output Total 303 ml 247 ml 547 ml Balance -203 ml 1807.8 ml 677 ml LESLYE VENEGAS MD Dec 19, 2016 12:55
[2016-12-19] MEDS ORDERED: ACETAMINOPHEN 325 MG TABLET. PO PRN (13:45)
[2016-12-19] MEDS: ACETAMINOPHEN 650 MG/20.3 ML SOLUTION. PEG PRN (13:58)
--- NOTE | 2016-12-19 14:12 | PATHOLOGY ---
PATHOLOGY REPORT * * * * * * * * FINAL DIAGNOSIS: Intracerebral hemorrhage evacuation: - Hematoma. COMMENT: There is no evidence of malignancy. (JPM:; d/t: 12/19/16) REPORT ELECTRONICALLY SIGNED BY: Inderjit Cantu M.D. DATE/TIME: 12/19/2016 14:12 * * * * * * * * GROSS PATHOLOGY: The specimen is received in formalin labeled "Howard Barrera, clot/hematoma". Received is a moderate amount of blood coagulum measuring 5.1 x 3.7 x 1.5 cm in aggregate dimensions. Soft tissue is not grossly identified. The specimen is submitted representatively in cassette A1. (CAA; 12/16/2016) INITIAL CPT CODE(S): A; 11003 Professional services performed by [facility] [address] Technical services performed by [facility] at [address] [place] [address] [address], [place] [address]. SPECIMEN(S) RECEIVED: A.Clot/hematoma CLINICAL HISTORY: Intraparenchymal hematoma PATIENT: HOWARD BARRERA /AGE: 9 1955 (Age: 61) PATIENT #: [id number] ALT CASE #: SPECIMEN COLLECTION DATE: 12/15/2016 SPECIMEN RECEIVED DATE: 12/16/2016 [facility] - [address] [place] [address] - PHONE: [phone] * * * END OF REPORT * * *
--- NOTE | 2016-12-19 14:19 | PDOC ---
PULMONARY PROGRESS NOTES Subjective on vent SEDATED Vitals Vital Signs Date Time Temp Pulse Resp B/P Pulse Ox O2 Delivery O2 Flow Rate FiO2 12/19/16 14:03 65 17 132/76 100 Ventilator 12/19/16 13:02 100.1 100.1 HEENT: Other (s/p crani, perrl, orally intubated, nose clear. ) Lungs: Clear Cardiovascular: S1, S2 Abdomen: Soft, Non-tender, Other (no mass) Extremities: No Edema Skin: Warm Labs Laboratory Tests Test 12/18/16 01:50 12/18/16 05:00 12/18/16 08:08 12/18/16 10:00 Vancomycin Level Trough 2.5mcg/mL (10.0-20.0) Vancomycin Last Dose Date Vancomycin Last Dose Time Sodium Level 141mmol/L (136-145) Potassium Level 3.0mmol/L (3.5-5.1) Chloride Level 110mmol/L (98-107) Carbon Dioxide Level 19mmol/L (21-32) Anion Gap 12 (6-14) Blood Urea Nitrogen 10mg/dL (8-26) Creatinine 0.5mg/dL (0.7-1.3) Estimated GFR (Cockcroft-Gault) 168.5 BUN/Creatinine Ratio 20 (6-20) Glucose Level 93mg/dL (70-99) Calcium Level 7.2mg/dL (8.5-10.1) Magnesium Level 1.5mg/dL (1.8-2.4) Total Bilirubin 0.9mg/dL (0.2-1.0) Aspartate Amino Transf (AST/SGOT) 44U/L (15-37) Alanine Aminotransferase (ALT/SGPT) 22U/L (16-63) Alkaline Phosphatase 29U/L (46-116) Total Protein 4.6g/dL (6.4-8.2) Albumin 2.0g/dL (3.4-5.0) Albumin/Globulin Ratio 0.8 (1.0-1.7) O2 Saturation 95% (92-99) Arterial Blood pH 7.51 (7.35-7.45) Arterial Blood pCO2 at Patient Temp 27mmHg (35-46) Arterial Blood pO2 at Patient Temp 77mmHg (65-108) Arterial Blood HCO3 21mmol/L (21-28) Arterial Blood Base Excess -1mmol/L (-3-3) FiO2 35 White Blood Count 9.9x10^3/uL (4.0-11.0) Red Blood Count 3.74x10^6/uL (4.30-5.70) Hemoglobin 12.4g/dL (13.0-17.5) Hematocrit 37.1% (39.0-53.0) Mean Corpuscular Volume 99fL (79-100) Mean Corpuscular Hemoglobin 33pg (25-35) Mean Corpuscular Hemoglobin Concent 33g/dL (31-37) Red Cell Distribution Width 12.6% (11.5-14.5) Platelet Count 134x10^3/uL (140-400) Test 12/18/16 12:20 12/18/16 13:20 12/19/16 08:00 12/19/16 09:45 O2 Saturation 87% (92-99) 96% (92-99) Arterial Blood pH 7.36 (7.35-7.45) 7.49 (7.35-7.45) Arterial Blood pCO2 at Patient Temp 35mmHg (35-46) 26mmHg (35-46) Arterial Blood pO2 at Patient Temp 58mmHg (65-108) 89mmHg (65-108) Arterial Blood HCO3 19mmol/L (21-28) 20mmol/L (21-28) Arterial Blood Base Excess -5mmol/L (-3-3) -2mmol/L (-3-3) FiO2 45 40 Sodium Level 138mmol/L (136-145) 139mmol/L (136-145) Potassium Level 2.8mmol/L (3.5-5.1) 3.3mmol/L (3.5-5.1) Chloride Level 106mmol/L (98-107) 106mmol/L (98-107) Carbon Dioxide Level 20mmol/L (21-32) 24mmol/L (21-32) Anion Gap 12 (6-14) 9 (6-14) Blood Urea Nitrogen 11mg/dL (8-26) 15mg/dL (8-26) Creatinine 0.6mg/dL (0.7-1.3) 0.6mg/dL (0.7-1.3) Estimated GFR (Cockcroft-Gault) 136.5 136.5 BUN/Creatinine Ratio 18 (6-20) 25 (6-20) Glucose Level 141mg/dL (70-99) 100mg/dL (70-99) Calcium Level 8.0mg/dL (8.5-10.1) 8.4mg/dL (8.5-10.1) Phosphorus Level 2.5mg/dL (2.6-4.7) Magnesium Level 1.6mg/dL (1.8-2.4) Total Bilirubin 0.9mg/dL (0.2-1.0) 0.7mg/dL (0.2-1.0) Aspartate Amino Transf (AST/SGOT) 49U/L (15-37) 38U/L (15-37) Alanine Aminotransferase (ALT/SGPT) 28U/L (16-63) 24U/L (16-63) Alkaline Phosphatase 49U/L (46-116) 39U/L (46-116) Total Protein 5.9g/dL (6.4-8.2) 5.6g/dL (6.4-8.2) Albumin 2.2g/dL (3.4-5.0) 2.1g/dL (3.4-5.0) Albumin/Globulin Ratio 0.6 (1.0-1.7) 0.6 (1.0-1.7) Laboratory Tests Test 12/19/16 08:00 12/19/16 09:45 O2 Saturation 96% (92-99) Arterial Blood pH 7.49 (7.35-7.45) Arterial Blood pCO2 at Patient Temp 26mmHg (35-46) Arterial Blood pO2 at Patient Temp 89mmHg (65-108) Arterial Blood HCO3 20mmol/L (21-28) Arterial Blood Base Excess -2mmol/L (-3-3) FiO2 40 Sodium Level 139mmol/L (136-145) Potassium Level 3.3mmol/L (3.5-5.1) Chloride Level 106mmol/L (98-107) Carbon Dioxide Level 24mmol/L (21-32) Anion Gap 9 (6-14) Blood Urea Nitrogen 15mg/dL (8-26) Creatinine 0.6mg/dL (0.7-1.3) Estimated GFR (Cockcroft-Gault) 136.5 BUN/Creatinine Ratio 25 (6-20) Glucose Level 100mg/dL (70-99) Calcium Level 8.4mg/dL (8.5-10.1) Total Bilirubin 0.7mg/dL (0.2-1.0) Aspartate Amino Transf (AST/SGOT) 38U/L (15-37) Alanine Aminotransferase (ALT/SGPT) 24U/L (16-63) Alkaline Phosphatase 39U/L (46-116) Total Protein 5.6g/dL (6.4-8.2) Albumin 2.1g/dL (3.4-5.0) Albumin/Globulin Ratio 0.6 (1.0-1.7) Medications Active Scripts Medications Dose Route/Sig Days Date Category Benazepril Hcl 40 Mg Tablet 1 Tab PO DAILY 12/16/16 Reported Amlodipine Besylate 5 Mg Tablet 5 Mg PO DAILY 12/16/16 Reported Comments CXR MILD CONGESTION Impression . IMPRESSION: 1. Acute respiratory failure secondary ICH 2. 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 3. Underlying chronic obstructive pulmonary disease, unknown FEV1, smoked for 40 years. 4. Underlying alcoholism. 5. Respiratory alkalosis on the ventilator. 6. Fever may be central Plan . RECOMMENDATIONS: 1. Continue vent support, not ready for wean sec to mental status 2. emperic antibx 3. elevate hob 4. IVC filter d/w 5. Watch for DTs. 6. Bronchodilators. 7. SCDs for deep vein thrombosis prophylaxis. 8. Stress ulcer prophylaxis. 9. Bronchodilators, add ics. ROQUE HUDDLESTON MD Dec 19, 2016 14:18
--- NOTE | 2016-12-19 17:31 | RAD ---
PROCEDURE AP chest radiograph. HISTORY PICC line placement. COMPARISON None. FINDINGS Endotracheal tube tip projects 3 centimeters above the rico. Esophagogastric tube is present with tip not seen, but at least to the body of stomach. Cardiac silhouette appears within normal limits for size. No pneumothorax or pleural effusion is identified. There is a right-sided PICC line with tip projecting at the atriocaval junction, in satisfactory location. Pulmonary vascularity appears increased. Patchy bilateral parenchymal densities are seen. IMPRESSION 1. Right-sided PICC line tip projects at the atriocaval junction. 2. Pulmonary vascularity appears increased, suggesting pulmonary vascular congestion. Patchy bilateral parenchymal densities, could be atelectasis versus asymmetric pulmonary edema or pneumonia. Electronically signed by: Darius Portillo MD (Dec 19, 2016 17:30:09)
[2016-12-19] MEDS: POTASSIUM CHLORIDE 10MEQ 100 ML IV SCH ×4 (17:48→20:52)
[2016-12-19 18:37] LABS: INR 1.2 (0.8-1.1); PROTHROMBIN TIME PATIENT 14.7 SEC (11.7-14.0)
[2016-12-19] MEDS ORDERED: POTASSIUM CHLORIDE 30 MEQ in IV 1/2 NORMAL SALINE 1,000 ML IV SCH (21:30)
[2016-12-19] MEDS ORDERED: TOTAL PARENTERAL NUTRITION 0 ML, AMINO ACIDS 10 % 60 GM, DEXTROSE 70 % IN WATER 195 GM,... IV SCH ×10 (22:00)
[2016-12-20] VITALS (25 sets, daily range): BP systolic 120–171; BP diastolic 61–99
[2016-12-20] MEDS: hydrALAZINE 20 MG/ML VIAL. IVP PRN ×2 (03:08→13:15)
[2016-12-20] MEDS: FENTANYL PF 100 MCG/2 ML VIAL. IV PRN (04:12)
[2016-12-20] MEDS: CEFAZOLIN SODIUM 1 GM in IV NORMAL SALINE 50ML 50 ML IV SCH ×3 (05:31→22:30)
[2016-12-20 06:34] LABS: CALCIUM 8.4 mg/dL (8.5-10.1); CREATININE 0.5 mg/dL (0.7-1.3); GFR 168.5; POTASSIUM 3.7 mmol/L (3.5-5.1)
[2016-12-20] MEDS: BUDESONIDE 0.5 MG/2 ML NEBU NEB SCH ×2 (08:20→20:04)
[2016-12-20] MEDS: LEVETIRACETAM 500 MG in IV NORMAL SALINE 100ML 100 ML IV SCH ×2 (09:05→21:04)
[2016-12-20] MEDS: MVI, ADULT NO.4 WITH VIT K 10 ML, THIAMINE 100 MG, FOLIC ACID 1 MG in IV NORMAL SALINE ... IV SCH ×4 (09:06)
[2016-12-20] MEDS ORDERED: FUROSEMIDE 20 MG/2 ML VIAL IVP ONE (09:30)
--- NOTE | 2016-12-20 10:07 | PDOC ---
PROGRESS NOTES Subjective Subjective remains intubated and on Diprivan family at bedside Objective Objective Vital Signs Date Time Temp Pulse Resp B/P Pulse Ox O2 Delivery O2 Flow Rate FiO2 12/20/16 08:20 96 Ventilator 12/20/16 07:00 96 30 122/61 12/20/16 04:00 99.1 99.1 Intake and Output 12/20/16 07:00 Intake Total 4980 ml Output Total 826 ml Balance 4154 ml IV Total 2648 ml Tube Feeding 982 ml Other 1350 ml Output Urine Total 786 ml Drainage Total 40 ml Physical Exam General: Other (on vent, diprivan) Neuro: Other (pupils equal and sluggish) Skin: Other (dressing intact, ICP reading 10 with good waveform) Assessment Assessment Problems Medical Problems: (1) Intraparenchymal hematoma of brain Status: Acute Plan Plan of Care wean from vent and sedation as tolerated IVF filter today d/w RN and family Comment Review of Relevant I have reviewed the following items jose alfredo (where applicable) has been applied. Labs Laboratory Tests Test 12/18/16 12:20 12/18/16 13:20 12/19/16 08:00 12/19/16 09:45 O2 Saturation 87% (92-99) 96% (92-99) Arterial Blood pH 7.36 (7.35-7.45) 7.49 (7.35-7.45) Arterial Blood pCO2 at Patient Temp 35mmHg (35-46) 26mmHg (35-46) Arterial Blood pO2 at Patient Temp 58mmHg (65-108) 89mmHg (65-108) Arterial Blood HCO3 19mmol/L (21-28) 20mmol/L (21-28) Arterial Blood Base Excess -5mmol/L (-3-3) -2mmol/L (-3-3) FiO2 45 40 Sodium Level 138mmol/L (136-145) 139mmol/L (136-145) Potassium Level 2.8mmol/L (3.5-5.1) 3.3mmol/L (3.5-5.1) Chloride Level 106mmol/L (98-107) 106mmol/L (98-107) Carbon Dioxide Level 20mmol/L (21-32) 24mmol/L (21-32) Anion Gap 12 (6-14) 9 (6-14) Blood Urea Nitrogen 11mg/dL (8-26) 15mg/dL (8-26) Creatinine 0.6mg/dL (0.7-1.3) 0.6mg/dL (0.7-1.3) Estimated GFR (Cockcroft-Gault) 136.5 136.5 BUN/Creatinine Ratio 18 (6-20) 25 (6-20) Glucose Level 141mg/dL (70-99) 100mg/dL (70-99) Calcium Level 8.0mg/dL (8.5-10.1) 8.4mg/dL (8.5-10.1) Phosphorus Level 2.5mg/dL (2.6-4.7) Magnesium Level 1.6mg/dL (1.8-2.4) Total Bilirubin 0.9mg/dL (0.2-1.0) 0.7mg/dL (0.2-1.0) Aspartate Amino Transf (AST/SGOT) 49U/L (15-37) 38U/L (15-37) Alanine Aminotransferase (ALT/SGPT) 28U/L (16-63) 24U/L (16-63) Alkaline Phosphatase 49U/L (46-116) 39U/L (46-116) Total Protein 5.9g/dL (6.4-8.2) 5.6g/dL (6.4-8.2) Albumin 2.2g/dL (3.4-5.0) 2.1g/dL (3.4-5.0) Albumin/Globulin Ratio 0.6 (1.0-1.7) 0.6 (1.0-1.7) Test 12/19/16 18:00 12/20/16 05:30 Prothrombin Time 14.7SEC (11.7-14.0) Prothromb Time International Ratio 1.2 (0.8-1.1) Sodium Level 138mmol/L (136-145) Potassium Level 3.7mmol/L (3.5-5.1) Chloride Level 107mmol/L (98-107) Carbon Dioxide Level 21mmol/L (21-32) Anion Gap 10 (6-14) Blood Urea Nitrogen 17mg/dL (8-26) Creatinine 0.5mg/dL (0.7-1.3) Estimated GFR (Cockcroft-Gault) 168.5 Glucose Level 99mg/dL (70-99) Calcium Level 8.4mg/dL (8.5-10.1) Magnesium Level 2.0mg/dL (1.8-2.4) Laboratory Tests Test 12/19/16 18:00 12/20/16 05:30 Prothrombin Time 14.7SEC (11.7-14.0) Prothromb Time International Ratio 1.2 (0.8-1.1) Sodium Level 138mmol/L (136-145) Potassium Level 3.7mmol/L (3.5-5.1) Chloride Level 107mmol/L (98-107) Carbon Dioxide Level 21mmol/L (21-32) Anion Gap 10 (6-14) Blood Urea Nitrogen 17mg/dL (8-26) Creatinine 0.5mg/dL (0.7-1.3) Estimated GFR (Cockcroft-Gault) 168.5 Glucose Level 99mg/dL (70-99) Calcium Level 8.4mg/dL (8.5-10.1) Magnesium Level 2.0mg/dL (1.8-2.4) Medications Current Medications Multivitamins/ Minerals/Folic Acid/Thiamine HCl/ Sodium Chloride (Infuvite Adult / Iv Sodium Chloride 0.9% 1000ml Bag) 1,011.2 ml @ 1,000 mls/ hr 1X ONCE IV Last administered on 12/15/16t 18:53; Start 12/15/16 at 18:45; Stop 12/15/16 at 19: 45; Status DC Ondansetron HCl 4 mg 4 mg 1X ONCE IV ; Start 12/15/16 at 18:45; Stop 12/15/16 at 18:46; Status DC Propofol 0 ml @ As Directed STK-MED ONCE IV ; Start 12/15/16 at 19:57; Stop at 19:58; Status DC Propofol (Diprivan) 50 ml @ As Directed STK-MED ONCE IV ; Start 12/15/16 at 19:57 ; Stop 12/15/16 at 19:58; Status DC Lidocaine HCl 100 mg STK-MED ONCE .ROUTE ; Start 12/15/16 at 20:45; Stop 12/15/16 at 20:46; Status DC Fentanyl Citrate (Fentanyl 2ml Vial) 100 mcg STK-MED ONCE .ROUTE ; Start at 20:46; Stop 12/15/16 at 20:47; Status DC Rocuronium [place] (Zemuron) 50 mg STK-MED ONCE .ROUTE ; Start 12/15/16 at 20:46 ; Stop 12/15/16 at 20:47; Status DC Ondansetron HCl 4 mg 4 mg PRN Q8HRS PRN IV NAUSEA/VOMITING; Start 12/15/16 at 20 :45; Stop 12/15/16 at 23:44; Status DC Sodium Chloride (Iv Sodium Chloride 0.9% 1000ml Bag) 1,000 ml @ 100 mls/hr Q10H IV Last administered on 12/16/16 06:45; Start 12/15/16 at 20:45; Stop 08/22 at 07:25; Status DC Acetaminophen (Tylenol) 650 mg PRN Q4HRS PRN PO FEVER Last administered on 12/16 16:43; Start 12/15/16 at 20:45; Stop 12/16/16 at 20:44; Status DC Etomidate (Amidate) 20 mg 1X ONCE IV Last administered on 12/15/16 19:51; Start 12/15/16 at 20:45; Stop 12/15/16 at 20:53; Status DC Succinylcholine Chloride 100 mg 100 mg 1X ONCE IV Last administered on 19:52; Start 12/15/16 at 20:45; Stop 12/15/16 at 20:53; Status DC Bacitracin/Sodium Chloride (Iv Sodium Chloride 0.9% 1000ml Bag) 1,000 ml @ 1, 000 mls/hr 1X PERIOP ONCE IRR Last administered on 12/15/16 22:05; Start at 21:00; Stop 12/15/16 at 21:59; Status DC Cellulose 1 each STK-MED ONCE .ROUTE Last administered on 12/15/16 22:05; Start 12/15/16 at 20:58; Stop 12/15/16 at 20:59; Status DC Bupivacaine HCl/ Epinephrine Bitart (Sensorcain-Mpf Epi 0.5%-1:172184) 30 ml STK -MED ONCE .ROUTE Last administered on 12/15/16 22:05; Start 12/15/16 at 20:58; Stop 12/15/16 at 20:59; Status DC Gelatin (Gelfoam Size 100) 1 each STK-MED ONCE .ROUTE Last administered on 12/15 22:05; Start 12/15/16 at 20:58; Stop 12/15/16 at 20:59; Status DC Thrombin 46501 unit 20,000 unit STK-MED ONCE TP Last administered on 12/15/16 22:05; Start 12/15/16 at 20:58; Stop 12/15/16 at 20:59; Status DC Propofol (Diprivan) 20 ml @ As Directed STK-MED ONCE IV ; Start 12/15/16 at 21:06 ; Stop 12/15/16 at 21:07; Status DC Desflurane 60 ml 60 ml STK-MED ONCE IH ; Start 12/15/16 at 21:49; Stop 12/15/16 at 21:50; Status DC Cefazolin Sodium/ Dextrose 50 ml @ As Directed STK-MED ONCE IV ; Start 12/15/16 at 21:52; Stop 12/15/16 at 21:53; Status DC Mannitol (Mannitol Iv Soln) 500 ml @ As Directed STK-MED ONCE IV ; Start at 21:53; Stop 12/15/16 at 21:54; Status DC Phenylephrine HCl 1 mg 1 mg STK-MED ONCE IV ; Start 12/15/16 at 21:55; Stop at 21:56; Status DC Levetiracetam/ Sodium Chloride (Keppra/Iv Sodium Chloride 0.9% 100ml) 100 ml @ 400 mls/hr 1X ONCE IV Last administered on 12/15/16 22:30; Start 12/15/16 at 22 :15; Stop 12/15/16 at 22:29; Status DC Ondansetron HCl (Zofran) 4 mg PRN Q6HRS PRN IV Nausea; Start 12/15/16 at 22:30; Stop 12/16/16 at 14:48; Status DC Fentanyl Citrate (Fentanyl 2ml Vial) 25 mcg PRN Q5MIN PRN IV MILD PAIN; Start 12/15/16 at 22:30; Stop 12/16/16 at 13:00; Status DC Fentanyl Citrate (Fentanyl 2ml Vial) 50 mcg PRN Q5MIN PRN IV MODERATE PAIN; Start 12/15/16 at 22:30; Stop 12/16/16 at 13:00; Status DC Morphine Sulfate 1 mg 1 mg PRN Q10MIN PRN IV SEVERE PAIN; Start 12/15/16 at 22: 30; Stop 12/16/16 at 13:08; Status DC Lactated Ringer's (Iv Lactated Ringers) 1,000 ml @ 0 mls/hr Q0M IV ; Start 12/15 at 22:30; Stop 12/16/16 at 13:08; Status DC Lidocaine HCl 2 ml 1X PRN PRN ID IV START; Start 12/15/16 at 22:30; Stop at 13:08; Status DC Hydromorphone HCl (Dilaudid) 0.5 mg PRN Q10MIN PRN IV SEV PAIN,Second choice; Start 12/15/16 at 22:30; Stop 12/16/16 at 13:01; Status DC Prochlorperazine Edisylate 5 mg 5 mg PACU PRN PRN IV NAUSEA; Start 12/15/16 at 22:30; Stop 12/16/16 at 13:08; Status DC Propofol 100 ml @ As Directed STK-MED ONCE IV ; Start 12/15/16 at 23:13; Stop at 23:14; Status DC Nicardipine HCl/ Sodium Chloride (Cardene/Iv Sodium Chloride 0.9% 250ml) 270 ml @ 27 mls/hr TITRATE PRN IV PER PROTOCOL; Start 12/15/16 at 23:30 Diphenhydramine HCl (Benadryl) 25 mg PRN Q6HRS PRN PO ITCHING; Start 12/15/16 at 23:30; Stop 12/19/16 at 12:54; Status DC Diphenhydramine HCl 25 mg 25 mg PRN Q6HRS PRN IV ITCHING; Start 12/15/16 at 23: 30 Levetiracetam/ Sodium Chloride (Keppra/Iv Sodium Chloride 0.9% 100ml) 105 ml @ 400 mls/hr Q12HR IV Last administered on 12/20/16 09:05; Start 12/16/16 at 09: 00 Sodium Chloride (Normal Saline Flush) 3 ml QSHIFT PRN IV AFTER MEDS AND BLOOD DRAWS; Start 12/15/16 at 23:30 Dextrose 12.5 gm PRN Q15MIN PRN IV SEE COMMENTS; Start 12/15/16 at 23:30 Magnesium Hydroxide (Milk Of Magnesia) 2,400 mg PRN Q12HR PRN PO CONSTIPATION; Start 12/15/16 at 23:30 Ondansetron HCl 4 mg 4 mg PRN Q6HRS PRN IV NAUESA, 1ST CHOICE; Start 12/15/16 at 23:30 Cefazolin Sodium 1 gm/Sodium Chloride 50 ml @ 100 mls/hr Q8HRS IV Last administered on 12/16/16 21:05; Start 12/16/16 at 06:00; Stop 12/16/16 at 22:29 ; Status DC Potassium Chloride/Dextrose/ Sod Cl (KCl 20 Meq In D5W-1/2 NS) 1,000 ml @ 75 mls/hr [id number] IV Last administered on 12/18/16 18:18; Start 12/15/16 at 23:30 ; Stop 12/19/16 at 09:48; Status DC Fentanyl Citrate (Fentanyl 2ml Vial) 25 mcg PRN Q1HR PRN IV PAIN Last administered on 12/18/16 12:01; Start 12/15/16 at 23:30 Fentanyl Citrate (Fentanyl 2ml Vial) 50 mcg PRN Q1HR PRN IV PAIN Last administered on 12/20/16 04:12; Start 12/15/16 at 23:30 Info (Do NOT chart on this placeholder) 1 each 1X ONCE MC ; Start 12/16/16 at 04:00; Stop 12/16/16 at 04:01; Status UNV Pneumococcal Polyvalent Vaccine (Do NOT chart on this placeholder) 1 each 1X ONCE MC ; Start 12/16/16 at 04:00; Stop 12/16/16 at 04:01; Status UNV Influenza Virus Vaccine Quadrival (Fluarix Quad [id number] Syringe) 0.5 ml ONCE ONCE VAX IM Last administered on 12/17/16 08:49; Start 12/16/16 at 09:00; Stop 12/16/16 at 09:01; Status DC Pneumococcal Polyvalent Vaccine 0.5 ml 0.5 ml ONCE ONCE VAX IM Last administered on 12/17/16 08:47; Start 12/16/16 at 09:00; Stop 12/16/16 at 09:01 ; Status DC Propofol 100 ml @ 0 mls/hr CONT PRN IV SEE I/O RECORD Last administered on 12/19 14:58; Start 12/16/16 at 04:30 Propofol 100 ml @ 0 mls/hr CONT PRN IV SEE I/O RECORD; Start 12/16/16 at 00:00 ; Stop 12/16/16 at 03:00; Status Cancel Propofol 100 ml @ 0 mls/hr CONT PRN IV SEE I/O RECORD Last administered on 20:00; Start 12/16/16 at 00:00; Stop 12/16/16 at 09:04; Status DC Multivitamins/ Minerals/Thiamine HCl/Folic Acid/ Sodium Chloride (Infuvite Adult / Iv Sodium Chloride 0.9% 1000ml Bag) 1,011.2 ml @ 100 mls/ hr DAILY IV Last administered on 12/20/16 09:06; Start 12/16/16 at 10:00; Stop 12/22/16 at 09:59 Lorazepam (Ativan) 2 mg PRN Q1HR PRN IV For CIWA 8-14; Start 12/16/16 at 10:00 Lorazepam (Ativan) 4 mg PRN Q1HR PRN IV For CIWA 15 or greater; Start 12/16/16 at 10:00 Piperacillin Sod/ Tazobactam Sod (Zosyn Per Pharmacy) 1 each PRN DAILY PRN MC SEE COMMENTS; Start 12/16/16 at 10:30; Stop 12/18/16 at 11:54; Status DC Vancomycin HCl 1 each 1 each PRN DAILY PRN MC SEE COMMENTS Last administered on 12/18/16 04:00; Start 12/16/16 at 10:30; Stop 12/18/16 at 11:54; Status DC Vancomycin HCl 1.5 gm/Sodium Chloride 500 ml @ 250 mls/hr 1X ONCE IV Last administered on 12/16/16 14:08; Start 12/16/16 at 11:00; Stop 12/16/16 at 12:59 ; Status DC Piperacillin Sod/ Tazobactam Sod/ Sodium Chloride (Zosyn/Iv Sodium Chloride 0.9 % 100ml) 100 ml @ 200 mls/hr Q6HRS IV Last administered on 12/18/16 05:11; Start 12/16/16 at 12:00; Stop 12/18/16 at 11:54; Status DC Propofol 1000 mg 1,000 mg STK-MED ONCE IV ; Start 12/15/16 at 23:00; Stop at 13:28; Status DC Vancomycin HCl/ Sodium Chloride (Iv Sodium Chloride 0.9% 250ml) 250 ml @ 250 mls/hr Q12H IV Last administered on 12/18/16 02:00; Start 12/17/16 at 02:00; Stop 12/18/16 at 03:45; Status DC Vancomycin HCl 1 each 1X ONCE MC Last administered on 12/18/16 01:30; Start 12/18/16 at 01:30; Stop 12/18/16 at 11:54; Status DC Hydralazine HCl (Apresoline) 10 mg PRN Q4HRS PRN IVP ELEVATED BP, SEE COMMENTS Last administered on 12/20/16 03:08; Start 12/17/16 at 12:15 Potassium Chloride 40 meq 40 meq 1X ONCE PO ; Start 12/17/16 at 18:15; Stop 09/22 at 18:16; Status Cancel Potassium Chloride 50 ml @ 50 mls/hr Q1H IV Last administered on 12/18/16 00: 55; Start 12/17/16 at 19:00; Stop 12/17/16 at 20:59; Status DC Vancomycin HCl/ Sodium Chloride (Iv Sodium Chloride 0.9% 250ml) 250 ml @ 250 mls/hr Q8H IV Last administered on 12/18/16 03:54; Start 12/18/16 at 04:00; Stop 12/18/16 at 11:54; Status DC Vancomycin HCl 1 each 1X ONCE MC ; Start 12/19/16 at 03:30; Stop 12/19/16 at 03 :30; Status DC Budesonide (Pulmicort) 0.5 mg RTBID NEB Last administered on 12/20/16 08:20; Start 12/18/16 at 08:00 Vecuronium [place] 6 mg 6 mg 1X ONCE IV Last administered on 12/18/16 13:09; Start 12/18/16 at 13:00; Stop 12/18/16 at 13:01; Status DC Magnesium Sulfate/ Dextrose 50 ml @ 25 mls/hr 1X ONCE IV Last administered on 12/18/16 15:34; Start 12/18/16 at 15:00; Stop 12/18/16 at 16:59; Status DC Potassium Chloride 100 ml @ 100 mls/hr Q1H IV Last administered on 12/18/16 18:17; Start 12/18/16 at 15:00; Stop 12/18/16 at 18:59; Status DC Cefazolin Sodium 1 gm/Sodium Chloride 50 ml @ 100 mls/hr Q8HRS IV Last administered on 12/20/16 05:31; Start 12/19/16 at 10:00 Magnesium Sulfate/ Dextrose 50 ml @ 25 mls/hr 1X ONCE IV Last administered on 12/19/16 10:42; Start 12/19/16 at 10:30; Stop 12/19/16 at 12:29; Status DC Sodium Chloride/ Potassium Chloride/ Potassium Phosphate/ Magnesium Sulfate/ Calcium Gluconate/ Multivitamins/ Minerals/Chromium/ Copper/Manganese/ Seleni/Zn /Total Parenteral Nutrition/Amino Acids/Dextrose/ Fat Emulsion Intravenous ( Sodium Chloride/ Potassium Phospha... 87.0013 ml @ 3.625 mls/hr TPN CONT IV ; Start 12/19/16 at 22:00; Stop 12/19/16 at 22:00; Status Cancel Info 1 each 1 each PRN DAILY PRN MC SEE COMMENTS; Start 12/19/16 at 10:00; Stop 12/19/16 at 10:00; Status DC Potassium Chloride (KCl Premix 10meq) 100 ml @ 100 mls/hr Q1H IV Last administered on 12/19/16 20:52; Start 12/19/16 at 11:00; Stop 12/19/16 at 14:59 ; Status DC Acetaminophen (Tylenol) 650 mg PRN Q6HRS PRN PO MILD PAIN / TEMP; Start at 13:45; Status Cancel Acetaminophen 650 mg 650 mg PRN Q6HRS PRN PEG MILD PAIN / TEMP Last administered on 12/19/16 13:58; Start 12/19/16 at 14:00 Potassium Chloride/Sodium Chloride (Iv Sodium Chloride 0.45%) 1,015 ml @ 75 mls /hr [id number] IV Last administered on 12/19/16 21:24; Start 12/19/16 at 21:30; Stop 12/20/16 at 08:48; Status DC Furosemide (Lasix) 20 mg 1X ONCE IVP Last administered on 12/20/16 09:09; Start 12/20/16 at 09:30; Stop 12/20/16 at 09:31; Status DC Active Scripts Active Reported Benazepril Hcl 40 Mg Tablet 1 Tab PO DAILY Amlodipine Besylate 5 Mg Tablet 5 Mg PO DAILY Vitals/I & O Vital Sign - Last 24 Hours 12/19/16 12/19/16 12/19/16 12/19/16 10:09 11:07 12:00 12:00 Pulse 62 70 66 Resp 17 18 17 B/P 126/64 128/67 152/74 Pulse Ox 100 100 100 O2 Delivery Ventilator Ventilator Mechanical Ventilator Ventilator 12/19/16 12/19/16 12/19/16 12/19/16 12:00 13:02 13:55 14:03 Temp 100.1 100.1 Pulse 82 65 Resp 22 17 B/P 131/76 132/76 Pulse Ox 100 100 100 100 O2 Delivery Ventilator Ventilator Ventilator Ventilator 12/19/16 12/19/16 12/19/16 12/19/16 14:57 15:00 16:00 16:13 Pulse 90 90 Resp 18 18 Pulse Ox 100 100 100 O2 Delivery Ventilator Ventilator Mechanical Ventilator 12/19/16 12/19/16 12/19/16 12/19/16 16:54 17:00 17:55 18:00 Temp 99.5 99.5 Pulse 68 72 Resp 18 17 B/P 127/76 146/70 Pulse Ox 100 100 100 100 O2 Delivery Ventilator Ventilator Ventilator 12/19/16 12/19/16 12/19/16 12/19/16 19:00 19:42 20:00 20:00 Temp 99.4 99.4 Pulse 87 60 Resp 24 25 18 B/P 129/70 135/68 Pulse Ox 97 95 99 O2 Delivery Ventilator Ventilator Mechanical Ventilator Ventilator 12/19/16 12/19/16 12/19/16 12/19/16 20:30 20:37 21:00 21:28 Pulse 56 Resp 20 17 27 B/P 128/69 Pulse Ox 98 100 100 O2 Delivery Ventilator Ventilator Ventilator Ventilator 12/19/16 12/19/16 12/19/16 12/20/16 22:00 22:59 23:00 00:00 Temp 97.9 97.9 Pulse 56 60 56 Resp 17 B/P 113/57 137/73 120/64 Pulse Ox 96 95 93 100 O2 Delivery Ventilator Ventilator Ventilator Ventilator 12/20/16 12/20/16 12/20/16 12/20/16 00:00 01:00 01:22 02:00 Pulse 71 62 Resp 18 17 B/P 137/72 138/76 Pulse Ox 99 100 100 O2 Delivery Mechanical Ventilator Ventilator Ventilator Ventilator 12/20/16 12/20/16 12/20/16 12/20/16 03:00 03:08 03:59 04:00 Temp 99.1 99.1 Pulse 73 73 66 Resp 17 18 B/P 155/86 155/86 154/92 Pulse Ox 98 100 100 O2 Delivery Ventilator Ventilator Ventilator 12/20/16 12/20/16 12/20/16 12/20/16 04:00 05:00 06:00 07:00 Pulse 66 60 96 Resp 17 17 30 B/P 121/61 130/73 122/61 Pulse Ox 100 100 94 O2 Delivery Mechanical Ventilator Ventilator Ventilator Ventilator 12/20/16 12/20/16 08:00 08:20 Pulse Ox 96 O2 Delivery Mechanical Ventilator Ventilator Intake and Output 12/19/16 12/19/16 12/20/16 15:00 23:00 07:00 Intake Total 3071 ml 1909 ml Output Total 130 ml 458 ml 238 ml Balance -130 ml 2613 ml 1671 ml NALLELY MILLAN MD Dec 20, 2016 10:07
--- NOTE | 2016-12-20 11:26 | PDOC ---
PULMONARY PROGRESS NOTES Subjective on vent SEDATED Vitals Vital Signs Date Time Temp Pulse Resp B/P Pulse Ox O2 Delivery O2 Flow Rate FiO2 12/20/16 11:00 81 21 160/85 99 Ventilator 12/20/16 08:00 97.8 97.8 HEENT: Other (s/p crani, perrl, orally intubated, nose clear. ) Lungs: Clear Cardiovascular: S1, S2 Abdomen: Soft, Non-tender, Other (no mass) Extremities: No Edema Skin: Warm Labs Laboratory Tests Test 12/18/16 12:20 12/18/16 13:20 12/19/16 08:00 12/19/16 09:45 O2 Saturation 87% (92-99) 96% (92-99) Arterial Blood pH 7.36 (7.35-7.45) 7.49 (7.35-7.45) Arterial Blood pCO2 at Patient Temp 35mmHg (35-46) 26mmHg (35-46) Arterial Blood pO2 at Patient Temp 58mmHg (65-108) 89mmHg (65-108) Arterial Blood HCO3 19mmol/L (21-28) 20mmol/L (21-28) Arterial Blood Base Excess -5mmol/L (-3-3) -2mmol/L (-3-3) FiO2 45 40 Sodium Level 138mmol/L (136-145) 139mmol/L (136-145) Potassium Level 2.8mmol/L (3.5-5.1) 3.3mmol/L (3.5-5.1) Chloride Level 106mmol/L (98-107) 106mmol/L (98-107) Carbon Dioxide Level 20mmol/L (21-32) 24mmol/L (21-32) Anion Gap 12 (6-14) 9 (6-14) Blood Urea Nitrogen 11mg/dL (8-26) 15mg/dL (8-26) Creatinine 0.6mg/dL (0.7-1.3) 0.6mg/dL (0.7-1.3) Estimated GFR (Cockcroft-Gault) 136.5 136.5 BUN/Creatinine Ratio 18 (6-20) 25 (6-20) Glucose Level 141mg/dL (70-99) 100mg/dL (70-99) Calcium Level 8.0mg/dL (8.5-10.1) 8.4mg/dL (8.5-10.1) Phosphorus Level 2.5mg/dL (2.6-4.7) Magnesium Level 1.6mg/dL (1.8-2.4) Total Bilirubin 0.9mg/dL (0.2-1.0) 0.7mg/dL (0.2-1.0) Aspartate Amino Transf (AST/SGOT) 49U/L (15-37) 38U/L (15-37) Alanine Aminotransferase (ALT/SGPT) 28U/L (16-63) 24U/L (16-63) Alkaline Phosphatase 49U/L (46-116) 39U/L (46-116) Total Protein 5.9g/dL (6.4-8.2) 5.6g/dL (6.4-8.2) Albumin 2.2g/dL (3.4-5.0) 2.1g/dL (3.4-5.0) Albumin/Globulin Ratio 0.6 (1.0-1.7) 0.6 (1.0-1.7) Test 12/19/16 18:00 12/20/16 05:30 Prothrombin Time 14.7SEC (11.7-14.0) Prothromb Time International Ratio 1.2 (0.8-1.1) Sodium Level 138mmol/L (136-145) Potassium Level 3.7mmol/L (3.5-5.1) Chloride Level 107mmol/L (98-107) Carbon Dioxide Level 21mmol/L (21-32) Anion Gap 10 (6-14) Blood Urea Nitrogen 17mg/dL (8-26) Creatinine 0.5mg/dL (0.7-1.3) Estimated GFR (Cockcroft-Gault) 168.5 Glucose Level 99mg/dL (70-99) Calcium Level 8.4mg/dL (8.5-10.1) Magnesium Level 2.0mg/dL (1.8-2.4) Laboratory Tests Test 12/19/16 18:00 12/20/16 05:30 Prothrombin Time 14.7SEC (11.7-14.0) Prothromb Time International Ratio 1.2 (0.8-1.1) Sodium Level 138mmol/L (136-145) Potassium Level 3.7mmol/L (3.5-5.1) Chloride Level 107mmol/L (98-107) Carbon Dioxide Level 21mmol/L (21-32) Anion Gap 10 (6-14) Blood Urea Nitrogen 17mg/dL (8-26) Creatinine 0.5mg/dL (0.7-1.3) Estimated GFR (Cockcroft-Gault) 168.5 Glucose Level 99mg/dL (70-99) Calcium Level 8.4mg/dL (8.5-10.1) Magnesium Level 2.0mg/dL (1.8-2.4) Medications Active Scripts Medications Dose Route/Sig Days Date Category Benazepril Hcl 40 Mg Tablet 1 Tab PO DAILY 12/16/16 Reported Amlodipine Besylate 5 Mg Tablet 5 Mg PO DAILY 12/16/16 Reported Comments CXR MILD CONGESTION Impression . IMPRESSION: 1. Acute respiratory failure secondary ICH 2. 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 3. Underlying chronic obstructive pulmonary disease, unknown FEV1, smoked for 40 years. 4. Underlying alcoholism. 5. Respiratory alkalosis on the ventilator. 6. Fever may be central Plan . SPOKE WITH WILL CONTINUE AC MODE NOT WEANABLE AT THIS TIME IVC FILTER CONTINUE THE SAME FOR NOW ROQUE HUDDLESTON MD Dec 20, 2016 11:26
--- NOTE | 2016-12-20 12:48 | PDOC ---
PROGRESS NOTES Chief Complaint Chief Complaint cc: ams A/P Right frontal craniotomy with evacuation of intracerebral hematoma and placement of external ventricular drain in the right lateral ventricle.POD 5 Alcohol abuse Respiratory failure on Mechanical ventilation Elective Encephalopathy due to above Leucocytosis better Hyponatremia labs pending fever resolved. Plan On mechanical ventilation, off sedation, SBT ok, but not waking up totally CIWA protocol for alcohol withdrawal precaution Stop abx if Pulmonolgy agrees, no sings of infection seen. NS following Keppra for seizure precautions BP goal < SBP 130 Replace IV potassium and Magnesium GI prophylaxis NO dvt prophylaxis Tube feeds, dc ivf, lasix 20mg iv x1 family at bedside, all questions answered prognosis guarded. IVC filter for PE prevention as per neurosx on 12/20 History of Present Illness History of Present Illness intubated. off sedation now, moving right arm, but not open eyes or follow commands Vitals Vitals Vital Signs Date Time Temp Pulse Resp B/P Pulse Ox O2 Delivery O2 Flow Rate FiO2 12/20/16 12:00 Mechanical Ventilator 12/20/16 12:00 100.3 66 17 155/78 100 100.3 Physical Exam General: Other (on vent, diprivan) Heart: Normal S1, Normal S2 Lungs: Clear Abdomen: Normal bowel sounds, Soft Extremities: No clubbing, No cyanosis Skin: Other (dressing intact, ICP reading 10 with good waveform) Labs LABS Laboratory Tests Test 12/19/16 18:00 12/20/16 05:30 Prothrombin Time 14.7SEC (11.7-14.0) Prothromb Time International Ratio 1.2 (0.8-1.1) Sodium Level 138mmol/L (136-145) Potassium Level 3.7mmol/L (3.5-5.1) Chloride Level 107mmol/L (98-107) Carbon Dioxide Level 21mmol/L (21-32) Anion Gap 10 (6-14) Blood Urea Nitrogen 17mg/dL (8-26) Creatinine 0.5mg/dL (0.7-1.3) Estimated GFR (Cockcroft-Gault) 168.5 Glucose Level 99mg/dL (70-99) Calcium Level 8.4mg/dL (8.5-10.1) Magnesium Level 2.0mg/dL (1.8-2.4) Review of Systems Review of Systems no fever, chills Assessment and Plan Assessmemt and Plan Problems Medical Problems: (1) Intraparenchymal hematoma of brain Status: Acute Problems: Comment Review of Relevant I have reviewed the following items jose alfredo (where applicable) has been applied. Labs Laboratory Tests Test 12/18/16 13:20 12/19/16 08:00 12/19/16 09:45 12/19/16 18:00 Sodium Level 138mmol/L (136-145) 139mmol/L (136-145) Potassium Level 2.8mmol/L (3.5-5.1) 3.3mmol/L (3.5-5.1) Chloride Level 106mmol/L (98-107) 106mmol/L (98-107) Carbon Dioxide Level 20mmol/L (21-32) 24mmol/L (21-32) Anion Gap 12 (6-14) 9 (6-14) Blood Urea Nitrogen 11mg/dL (8-26) 15mg/dL (8-26) Creatinine 0.6mg/dL (0.7-1.3) 0.6mg/dL (0.7-1.3) Estimated GFR (Cockcroft-Gault) 136.5 136.5 BUN/Creatinine Ratio 18 (6-20) 25 (6-20) Glucose Level 141mg/dL (70-99) 100mg/dL (70-99) Calcium Level 8.0mg/dL (8.5-10.1) 8.4mg/dL (8.5-10.1) Phosphorus Level 2.5mg/dL (2.6-4.7) Magnesium Level 1.6mg/dL (1.8-2.4) Total Bilirubin 0.9mg/dL (0.2-1.0) 0.7mg/dL (0.2-1.0) Aspartate Amino Transf (AST/SGOT) 49U/L (15-37) 38U/L (15-37) Alanine Aminotransferase (ALT/SGPT) 28U/L (16-63) 24U/L (16-63) Alkaline Phosphatase 49U/L (46-116) 39U/L (46-116) Total Protein 5.9g/dL (6.4-8.2) 5.6g/dL (6.4-8.2) Albumin 2.2g/dL (3.4-5.0) 2.1g/dL (3.4-5.0) Albumin/Globulin Ratio 0.6 (1.0-1.7) 0.6 (1.0-1.7) O2 Saturation 96% (92-99) Arterial Blood pH 7.49 (7.35-7.45) Arterial Blood pCO2 at Patient Temp 26mmHg (35-46) Arterial Blood pO2 at Patient Temp 89mmHg (65-108) Arterial Blood HCO3 20mmol/L (21-28) Arterial Blood Base Excess -2mmol/L (-3-3) FiO2 40 Prothrombin Time 14.7SEC (11.7-14.0) Prothromb Time International Ratio 1.2 (0.8-1.1) Test 12/20/16 05:30 Sodium Level 138mmol/L (136-145) Potassium Level 3.7mmol/L (3.5-5.1) Chloride Level 107mmol/L (98-107) Carbon Dioxide Level 21mmol/L (21-32) Anion Gap 10 (6-14) Blood Urea Nitrogen 17mg/dL (8-26) Creatinine 0.5mg/dL (0.7-1.3) Estimated GFR (Cockcroft-Gault) 168.5 Glucose Level 99mg/dL (70-99) Calcium Level 8.4mg/dL (8.5-10.1) Magnesium Level 2.0mg/dL (1.8-2.4) Laboratory Tests Test 12/19/16 18:00 12/20/16 05:30 Prothrombin Time 14.7SEC (11.7-14.0) Prothromb Time International Ratio 1.2 (0.8-1.1) Sodium Level 138mmol/L (136-145) Potassium Level 3.7mmol/L (3.5-5.1) Chloride Level 107mmol/L (98-107) Carbon Dioxide Level 21mmol/L (21-32) Anion Gap 10 (6-14) Blood Urea Nitrogen 17mg/dL (8-26) Creatinine 0.5mg/dL (0.7-1.3) Estimated GFR (Cockcroft-Gault) 168.5 Glucose Level 99mg/dL (70-99) Calcium Level 8.4mg/dL (8.5-10.1) Magnesium Level 2.0mg/dL (1.8-2.4) Medications Current Medications Multivitamins/ Minerals/Folic Acid/Thiamine HCl/ Sodium Chloride (Infuvite Adult / Iv Sodium Chloride 0.9% 1000ml Bag) 1,011.2 ml @ 1,000 mls/ hr 1X ONCE IV Last administered on 12/15/16 18:53; Start 12/15/16 at 18:45; Stop 12/15/16 at 19: 45; Status DC Ondansetron HCl 4 mg 4 mg 1X ONCE IV ; Start 12/15/16 at 18:45; Stop 12/15/16 at 18:46; Status DC Propofol 0 ml @ As Directed STK-MED ONCE IV ; Start 12/15/16 at 19:57; Stop at 19:58; Status DC Propofol (Diprivan) 50 ml @ As Directed STK-MED ONCE IV ; Start 12/15/16 at 19:57 ; Stop 12/15/16 at 19:58; Status DC Lidocaine HCl 100 mg STK-MED ONCE .ROUTE ; Start 12/15/16 at 20:45; Stop 12/15/16 at 20:46; Status DC Fentanyl Citrate (Fentanyl 2ml Vial) 100 mcg STK-MED ONCE .ROUTE ; Start at 20:46; Stop 12/15/16 at 20:47; Status DC Rocuronium [place] (Zemuron) 50 mg STK-MED ONCE .ROUTE ; Start 12/15/16 at 20:46 ; Stop 12/15/16 at 20:47; Status DC Ondansetron HCl 4 mg 4 mg PRN Q8HRS PRN IV NAUSEA/VOMITING; Start 12/15/16 at 20 :45; Stop 12/15/16 at 23:44; Status DC Sodium Chloride (Iv Sodium Chloride 0.9% 1000ml Bag) 1,000 ml @ 100 mls/hr Q10H IV Last administered on 12/16/16 06:45; Start 12/15/16 at 20:45; Stop 08/22 at 07:25; Status DC Acetaminophen (Tylenol) 650 mg PRN Q4HRS PRN PO FEVER Last administered on 12/16 16:43; Start 12/15/16 at 20:45; Stop 12/16/16 at 20:44; Status DC Etomidate (Amidate) 20 mg 1X ONCE IV Last administered on 12/15/16 19:51; Start 12/15/16 at 20:45; Stop 12/15/16 at 20:53; Status DC Succinylcholine Chloride 100 mg 100 mg 1X ONCE IV Last administered on 19:52; Start 12/15/16 at 20:45; Stop 12/15/16 at 20:53; Status DC Bacitracin/Sodium Chloride (Iv Sodium Chloride 0.9% 1000ml Bag) 1,000 ml @ 1, 000 mls/hr 1X PERIOP ONCE IRR Last administered on 12/15/16 22:05; Start at 21:00; Stop 12/15/16 at 21:59; Status DC Cellulose 1 each STK-MED ONCE .ROUTE Last administered on 12/15/16 22:05; Start 12/15/16 at 20:58; Stop 12/15/16 at 20:59; Status DC Bupivacaine HCl/ Epinephrine Bitart (Sensorcain-Mpf Epi 0.5%-1:437750) 30 ml STK -MED ONCE .ROUTE Last administered on 12/15/16 22:05; Start 12/15/16 at 20:58; Stop 12/15/16 at 20:59; Status DC Gelatin (Gelfoam Size 100) 1 each STK-MED ONCE .ROUTE Last administered on 12/15 22:05; Start 12/15/16 at 20:58; Stop 12/15/16 at 20:59; Status DC Thrombin 46288 unit 20,000 unit STK-MED ONCE TP Last administered on 12/15/16 22:05; Start 12/15/16 at 20:58; Stop 12/15/16 at 20:59; Status DC Propofol (Diprivan) 20 ml @ As Directed STK-MED ONCE IV ; Start 12/15/16 at 21:06 ; Stop 12/15/16 at 21:07; Status DC Desflurane 60 ml 60 ml STK-MED ONCE IH ; Start 12/15/16 at 21:49; Stop 12/15/16 at 21:50; Status DC Cefazolin Sodium/ Dextrose 50 ml @ As Directed STK-MED ONCE IV ; Start 12/15/16 at 21:52; Stop 12/15/16 at 21:53; Status DC Mannitol (Mannitol Iv Soln) 500 ml @ As Directed STK-MED ONCE IV ; Start at 21:53; Stop 12/15/16 at 21:54; Status DC Phenylephrine HCl 1 mg 1 mg STK-MED ONCE IV ; Start 12/15/16 at 21:55; Stop at 21:56; Status DC Levetiracetam/ Sodium Chloride (Keppra/Iv Sodium Chloride 0.9% 100ml) 100 ml @ 400 mls/hr 1X ONCE IV Last administered on 12/15/16t 22:30; Start 12/15/16 at 22 :15; Stop 12/15/16 at 22:29; Status DC Ondansetron HCl (Zofran) 4 mg PRN Q6HRS PRN IV Nausea; Start 12/15/16 at 22:30; Stop 12/16/16 at 14:48; Status DC Fentanyl Citrate (Fentanyl 2ml Vial) 25 mcg PRN Q5MIN PRN IV MILD PAIN; Start 12/15/16 at 22:30; Stop 12/16/16 at 13:00; Status DC Fentanyl Citrate (Fentanyl 2ml Vial) 50 mcg PRN Q5MIN PRN IV MODERATE PAIN; Start 12/15/16 at 22:30; Stop 12/16/16 at 13:00; Status DC Morphine Sulfate 1 mg 1 mg PRN Q10MIN PRN IV SEVERE PAIN; Start 12/15/16 at 22: 30; Stop 12/16/16 at 13:08; Status DC Lactated Ringer's (Iv Lactated Ringers) 1,000 ml @ 0 mls/hr Q0M IV ; Start 12/15 at 22:30; Stop 12/16/16 at 13:08; Status DC Lidocaine HCl 2 ml 1X PRN PRN ID IV START; Start 12/15/16 at 22:30; Stop at 13:08; Status DC Hydromorphone HCl (Dilaudid) 0.5 mg PRN Q10MIN PRN IV SEV PAIN,Second choice; Start 12/15/16 at 22:30; Stop 12/16/16 at 13:01; Status DC Prochlorperazine Edisylate 5 mg 5 mg PACU PRN PRN IV NAUSEA; Start 12/15/16 at 22:30; Stop 12/16/16 at 13:08; Status DC Propofol 100 ml @ As Directed STK-MED ONCE IV ; Start 12/15/16 at 23:13; Stop at 23:14; Status DC Nicardipine HCl/ Sodium Chloride (Cardene/Iv Sodium Chloride 0.9% 250ml) 270 ml @ 27 mls/hr TITRATE PRN IV PER PROTOCOL; Start 12/15/16 at 23:30 Diphenhydramine HCl (Benadryl) 25 mg PRN Q6HRS PRN PO ITCHING; Start 12/15/16 at 23:30; Stop 12/19/16 at 12:54; Status DC Diphenhydramine HCl 25 mg 25 mg PRN Q6HRS PRN IV ITCHING; Start 12/15/16 at 23: 30 Levetiracetam/ Sodium Chloride (Keppra/Iv Sodium Chloride 0.9% 100ml) 105 ml @ 400 mls/hr Q12HR IV Last administered on 12/20/16 09:05; Start 12/16/16 at 09: 00 Sodium Chloride (Normal Saline Flush) 3 ml QSHIFT PRN IV AFTER MEDS AND BLOOD DRAWS; Start 12/15/16 at 23:30 Dextrose 12.5 gm PRN Q15MIN PRN IV SEE COMMENTS; Start 12/15/16 at 23:30 Magnesium Hydroxide (Milk Of Magnesia) 2,400 mg PRN Q12HR PRN PO CONSTIPATION; Start 12/15/16 at 23:30 Ondansetron HCl 4 mg 4 mg PRN Q6HRS PRN IV NAUESA, 1ST CHOICE; Start 12/15/16 at 23:30 Cefazolin Sodium 1 gm/Sodium Chloride 50 ml @ 100 mls/hr Q8HRS IV Last administered on 12/16/16 21:05; Start 12/16/16 at 06:00; Stop 12/16/16 at 22:29 ; Status DC Potassium Chloride/Dextrose/ Sod Cl (KCl 20 Meq In D5W-1/2 NS) 1,000 ml @ 75 mls/hr [id number] IV Last administered on 12/18/16 18:18; Start 12/15/16 at 23:30 ; Stop 12/19/16 at 09:48; Status DC Fentanyl Citrate (Fentanyl 2ml Vial) 25 mcg PRN Q1HR PRN IV PAIN Last administered on 12/18/16 12:01; Start 12/15/16 at 23:30 Fentanyl Citrate (Fentanyl 2ml Vial) 50 mcg PRN Q1HR PRN IV PAIN Last administered on 12/20/16 04:12; Start 12/15/16 at 23:30 Info (Do NOT chart on this placeholder) 1 each 1X ONCE MC ; Start 12/16/16 at 04:00; Stop 12/16/16 at 04:01; Status UNV Pneumococcal Polyvalent Vaccine (Do NOT chart on this placeholder) 1 each 1X ONCE MC ; Start 12/16/16 at 04:00; Stop 12/16/16 at 04:01; Status UNV Influenza Virus Vaccine Quadrival (Fluarix Quad [id number] Syringe) 0.5 ml ONCE ONCE VAX IM Last administered on 12/17/16 08:49; Start 12/16/16 at 09:00; Stop 12/16/16 at 09:01; Status DC Pneumococcal Polyvalent Vaccine 0.5 ml 0.5 ml ONCE ONCE VAX IM Last administered on 12/17/16 08:47; Start 12/16/16 at 09:00; Stop 12/16/16 at 09:01 ; Status DC Propofol 100 ml @ 0 mls/hr CONT PRN IV SEE I/O RECORD Last administered on 12/19 14:58; Start 12/16/16 at 04:30 Propofol 100 ml @ 0 mls/hr CONT PRN IV SEE I/O RECORD; Start 12/16/16 at 00:00 ; Stop 12/16/16 at 03:00; Status Cancel Propofol 100 ml @ 0 mls/hr CONT PRN IV SEE I/O RECORD Last administered on 20:00; Start 12/16/16 at 00:00; Stop 12/16/16 at 09:04; Status DC Multivitamins/ Minerals/Thiamine HCl/Folic Acid/ Sodium Chloride (Infuvite Adult / Iv Sodium Chloride 0.9% 1000ml Bag) 1,011.2 ml @ 100 mls/ hr DAILY IV Last administered on 12/20/16 09:06; Start 12/16/16 at 10:00; Stop 12/22/16 at 09:59 Lorazepam (Ativan) 2 mg PRN Q1HR PRN IV For CIWA 8-14; Start 12/16/16 at 10:00 Lorazepam (Ativan) 4 mg PRN Q1HR PRN IV For CIWA 15 or greater; Start 12/16/16 at 10:00 Piperacillin Sod/ Tazobactam Sod (Zosyn Per Pharmacy) 1 each PRN DAILY PRN MC SEE COMMENTS; Start 12/16/16 at 10:30; Stop 12/18/16 at 11:54; Status DC Vancomycin HCl 1 each 1 each PRN DAILY PRN MC SEE COMMENTS Last administered on 12/18/16 04:00; Start 12/16/16 at 10:30; Stop 12/18/16 at 11:54; Status DC Vancomycin HCl 1.5 gm/Sodium Chloride 500 ml @ 250 mls/hr 1X ONCE IV Last administered on 12/16/16 14:08; Start 12/16/16 at 11:00; Stop 12/16/16 at 12:59 ; Status DC Piperacillin Sod/ Tazobactam Sod/ Sodium Chloride (Zosyn/Iv Sodium Chloride 0.9 % 100ml) 100 ml @ 200 mls/hr Q6HRS IV Last administered on 12/18/16 05:11; Start 12/16/16 at 12:00; Stop 12/18/16 at 11:54; Status DC Propofol 1000 mg 1,000 mg STK-MED ONCE IV ; Start 12/15/16 at 23:00; Stop at 13:28; Status DC Vancomycin HCl/ Sodium Chloride (Iv Sodium Chloride 0.9% 250ml) 250 ml @ 250 mls/hr Q12H IV Last administered on 12/18/16 02:00; Start 12/17/16 at 02:00; Stop 12/18/16 at 03:45; Status DC Vancomycin HCl 1 each 1X ONCE MC Last administered on 12/18/16 01:30; Start 12/18/16 at 01:30; Stop 12/18/16 at 11:54; Status DC Hydralazine HCl (Apresoline) 10 mg PRN Q4HRS PRN IVP ELEVATED BP, SEE COMMENTS Last administered on 12/20/16 03:08; Start 12/17/16 at 12:15 Potassium Chloride 40 meq 40 meq 1X ONCE PO ; Start 12/17/16 at 18:15; Stop 09/22 at 18:16; Status Cancel Potassium Chloride 50 ml @ 50 mls/hr Q1H IV Last administered on 12/18/16 00: 55; Start 12/17/16 at 19:00; Stop 12/17/16 at 20:59; Status DC Vancomycin HCl/ Sodium Chloride (Iv Sodium Chloride 0.9% 250ml) 250 ml @ 250 mls/hr Q8H IV Last administered on 12/18/16 03:54; Start 12/18/16 at 04:00; Stop 12/18/16 at 11:54; Status DC Vancomycin HCl 1 each 1X ONCE MC ; Start 12/19/16 at 03:30; Stop 12/19/16 at 03 :30; Status DC Budesonide (Pulmicort) 0.5 mg RTBID NEB Last administered on 12/20/16 08:20; Start 12/18/16 at 08:00 Vecuronium [place] 6 mg 6 mg 1X ONCE IV Last administered on 12/18/16 13:09; Start 12/18/16 at 13:00; Stop 12/18/16 at 13:01; Status DC Magnesium Sulfate/ Dextrose 50 ml @ 25 mls/hr 1X ONCE IV Last administered on 12/18/16 15:34; Start 12/18/16 at 15:00; Stop 12/18/16 at 16:59; Status DC Potassium Chloride 100 ml @ 100 mls/hr Q1H IV Last administered on 12/18/16 18:17; Start 12/18/16 at 15:00; Stop 12/18/16 at 18:59; Status DC Cefazolin Sodium 1 gm/Sodium Chloride 50 ml @ 100 mls/hr Q8HRS IV Last administered on 12/20/16 05:31; Start 12/19/16 at 10:00 Magnesium Sulfate/ Dextrose 50 ml @ 25 mls/hr 1X ONCE IV Last administered on 12/19/16 10:42; Start 12/19/16 at 10:30; Stop 12/19/16 at 12:29; Status DC Sodium Chloride/ Potassium Chloride/ Potassium Phosphate/ Magnesium Sulfate/ Calcium Gluconate/ Multivitamins/ Minerals/Chromium/ Copper/Manganese/ Seleni/Zn /Total Parenteral Nutrition/Amino Acids/Dextrose/ Fat Emulsion Intravenous ( Sodium Chloride/ Potassium Phospha... 87.0013 ml @ 3.625 mls/hr TPN CONT IV ; Start 12/19/16 at 22:00; Stop 12/19/16 at 22:00; Status Cancel Info 1 each 1 each PRN DAILY PRN MC SEE COMMENTS; Start 12/19/16 at 10:00; Stop 12/19/16 at 10:00; Status DC Potassium Chloride (KCl Premix 10meq) 100 ml @ 100 mls/hr Q1H IV Last administered on 12/19/16 20:52; Start 12/19/16 at 11:00; Stop 12/19/16 at 14:59 ; Status DC Acetaminophen (Tylenol) 650 mg PRN Q6HRS PRN PO MILD PAIN / TEMP; Start at 13:45; Status Cancel Acetaminophen 650 mg 650 mg PRN Q6HRS PRN PEG MILD PAIN / TEMP Last administered on 12/19/16 13:58; Start 12/19/16 at 14:00 Potassium Chloride/Sodium Chloride (Iv Sodium Chloride 0.45%) 1,015 ml @ 75 mls /hr [id number] IV Last administered on 12/19/16 21:24; Start 12/19/16 at 21:30; Stop 12/20/16 at 08:48; Status DC Furosemide (Lasix) 20 mg 1X ONCE IVP Last administered on 12/20/16 09:09; Start 12/20/16 at 09:30; Stop 12/20/16 at 09:31; Status DC Active Scripts Active Reported Benazepril Hcl 40 Mg Tablet 1 Tab PO DAILY Amlodipine Besylate 5 Mg Tablet 5 Mg PO DAILY Vitals/I & O Vital Sign - Last 24 Hours 12/19/16 12/19/16 12/19/16 12/19/16 13:02 13:55 14:03 14:57 Temp 100.1 100.1 Pulse 82 65 Resp 22 17 B/P 131/76 132/76 Pulse Ox 100 100 100 100 O2 Delivery Ventilator Ventilator Ventilator 12/19/16 12/19/16 12/19/16 12/19/16 15:00 16:00 16:13 16:54 Pulse 90 90 Resp 18 18 Pulse Ox 100 100 100 O2 Delivery Ventilator Ventilator Mechanical Ventilator Ventilator 12/19/16 12/19/16 12/19/16 12/19/16 17:00 17:55 18:00 19:00 Temp 99.5 99.5 Pulse 68 72 87 Resp 18 17 24 B/P 127/76 146/70 129/70 Pulse Ox 100 100 100 97 O2 Delivery Ventilator Ventilator Ventilator 12/19/16 12/19/16 12/19/16 12/19/16 19:42 20:00 20:00 20:30 Temp 99.4 99.4 Pulse 60 Resp 25 18 20 B/P 135/68 Pulse Ox 95 99 98 O2 Delivery Ventilator Mechanical Ventilator Ventilator Ventilator 12/19/16 12/19/16 12/19/16 12/19/16 20:37 21:00 21:28 22:00 Pulse 56 56 Resp 17 27 17 B/P 128/69 113/57 Pulse Ox 100 100 96 O2 Delivery Ventilator Ventilator Ventilator Ventilator 12/19/16 12/19/16 12/20/16 12/20/16 22:59 23:00 00:00 00:00 Temp 97.9 97.9 Pulse 60 56 Resp 17 17 B/P 137/73 120/64 Pulse Ox 95 93 100 O2 Delivery Ventilator Ventilator Ventilator Mechanical Ventilator 12/20/16 12/20/16 12/20/16 12/20/16 01:00 01:22 02:00 03:00 Pulse 71 62 73 Resp 18 17 17 B/P 137/72 138/76 155/86 Pulse Ox 99 100 100 98 O2 Delivery Ventilator Ventilator Ventilator Ventilator 12/20/16 12/20/16 12/20/16 12/20/16 03:08 03:59 04:00 04:00 Temp 99.1 99.1 Pulse 73 66 Resp 18 B/P 155/86 154/92 Pulse Ox 100 100 O2 Delivery Ventilator Ventilator Mechanical Ventilator 12/20/16 12/20/16 12/20/16 12/20/16 05:00 06:00 07:00 08:00 Temp 97.8 97.8 Pulse 66 60 96 73 Resp 17 17 30 21 B/P 121/61 130/73 122/61 154/90 Pulse Ox 100 100 94 96 O2 Delivery Ventilator Ventilator Ventilator Ventilator 12/20/16 12/20/16 12/20/16 12/20/16 08:00 08:20 09:00 10:00 Pulse 65 66 Resp 14 14 B/P 136/68 156/79 Pulse Ox 96 100 100 O2 Delivery Mechanical Ventilator Ventilator Ventilator Ventilator 12/20/16 12/20/16 12/20/16 12/20/16 11:00 11:29 12:00 12:00 Temp 100.3 100.3 Pulse 81 66 Resp 17 B/P 160/85 155/78 Pulse Ox 99 100 100 O2 Delivery Ventilator Ventilator Ventilator Mechanical Ventilator Intake and Output 12/19/16 12/19/16 12/20/16 15:00 23:00 07:00 Intake Total 3071 ml 1909 ml Output Total 130 ml 458 ml 238 ml Balance -130 ml 2613 ml 1671 ml LESLYE VENEGAS MD Dec 20, 2016 12:48
[2016-12-20] MEDS ORDERED: IOHEXOL 300 MG/ML 100ML VIAL. ONE (16:17)
[2016-12-20] MEDS ORDERED: LIDOCAINE 2% 20 ML VIAL. ONE (16:17)
[2016-12-20] MEDS ORDERED: LIDOCAINE 2% 20 ML VIAL. IJ ONE (16:45)
[2016-12-20] MEDS ORDERED: IOHEXOL 300 MG/ML 100ML VIAL. IART ONE (16:45)
--- NOTE | 2016-12-20 17:11 | PDOC ---
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 Post op craniotomy. Immobility. High risk for venous thromboembolic disease. Post-Procedure Diagnosis Post-Procedure Diagnosis Same Procedure Performed Procedure Performed Fluoro guided insertion of retrievable infrarenal IVC filter Type of Anesthesia Type of Anesthesia Local Estimated Blood Loss EBL: Minimal Condition of Patient Condition of Patient No change. Sedated on vent. Disposition Disposition From IR return to ICU. Rx removal of IVC filter if/when risk of PE has resolved. Full report to follow. DEEPTHI NEWBERRY MD Dec 20, 2016 17:11
[2016-12-20] MEDS: PROPOFOL 100 ML IV PRN (17:57)
[2016-12-21] VITALS (25 sets, daily range): BP systolic 114–173; BP diastolic 51–94
[2016-12-21] MEDS: PROPOFOL 100 ML IV PRN (02:53)
[2016-12-21] MEDS: CEFAZOLIN SODIUM 1 GM in IV NORMAL SALINE 50ML 50 ML IV SCH ×3 (05:26→21:50)
[2016-12-21] MEDS: hydrALAZINE 20 MG/ML VIAL. IVP PRN ×2 (05:26→17:20)
[2016-12-21 05:38] LABS: BASO % 1 % (0-3); EOS % 1 % (0-3); HEMATOCRIT 31.6 % (39.0-53.0); LYMPH # 1.1 x10^3/uL (1.0-4.8); LYMPH % 14 % (24-48); MEAN CORPUSCULAR HEMOGLOBIN 33 pg (25-35); MEAN CORPUSCULAR HGB CONC 35 g/dL (31-37); MEAN CORPUSCULAR VOLUME 96 fL (79-100); MONO % 17 % (0-9); NEUT % 68 % (31-73); PLATELET COUNT 253 x10^3/uL (140-400); RED CELL DISTRIBUTION WIDTH 12.4 % (11.5-14.5); WHITE BLOOD COUNT 8.1 x10^3/uL (4.0-11.0)
[2016-12-21 05:50] LABS: CALCIUM 8.6 mg/dL (8.5-10.1); CREATININE 0.5 mg/dL (0.7-1.3); GFR 168.5; POTASSIUM 3.6 mmol/L (3.5-5.1)
--- NOTE | 2016-12-21 06:35 | RAD ---
Ultrasound-guided inferior venacavogram Fluoroscopy guided inferior vena cava filter placement Indication: 61-year-old male with intracranial hemorrhage. Status post craniotomy. A mobile, sedated on ventilator. High risk for venous thromboembolic disease. Insertion of retrievable IVC filter has been requested. Fluoroscopy time: 3.3 minutes Kerma-Area Product: 63 Gycm2 Anesthesia: Local only Contrast material: 38 cc Omnipaque 300 Sterility: All elements of maximal sterile barrier technique, including the use of a cap, mask, sterile gown, sterile gloves, large sterile sheet, appropriate hand hygiene, and 2% chlorhexidine for cutaneous antisepsis (or acceptable alternative antiseptic per current guidelines) were utilized. Procedure: Informed consent was obtained from the patient's . He was transported from the intensive care unit on a ventilator and was placed supine on the angiography table. Preliminary ultrasound examination of right groin revealed wide patency of right common femoral vein, which was documented with a single hard copy ultrasound image. Right groin was then prepped and draped in the usual sterile fashion, utilizing all elements of maximal sterile barrier technique, as described above. Using aseptic technique, local anesthesia, direct ultrasound guidance, and the micropuncture system, successful percutaneous entry was achieved into right common femoral vein. The right common femoral venostomy tract was then dilated and a long 8.4 Salvadorean sheath was successfully advanced into lower inferior vena cava. Omnipaque 300 was injected and IVC gram DSA images were obtained. These images revealed normal caliber of inferior vena cava, without stricture and without intraluminal thrombus. Level of renal veins was well seen. There was no contraindication to IVC filter placement. Therefore, using aseptic technique and fluoroscopic guidance, a Bard Disha retrievable IVC filter was advanced through the indwelling long right groin Salvadorean sheath, and was successfully deployed within infrarenal inferior vena cava. Completion IVC gram DSA images confirmed satisfactory satisfactory position of, the IVC filter between renal veins and cava bifurcation. The filter was tilted approximately 20 degrees, which should have no effect on function. Patient tolerated the procedure well without apparent complication. The right groin sheath was removed and hemostasis was achieved with manual pressure. Impression: 1. Successful, uneventful ultrasound-guided inferior venacavogram, without contraindication to IVC filter placement. 2. Successful, uneventful fluoroscopy guided placement of infrarenal Bard Yell retrievable IVC filter, as described. This filter can be left in place as a "permanent" IVC filter, or can be retrieved once risk of pulmonary embolus has resolved, at referring physician's discretion.
[2016-12-21] MEDS: LEVETIRACETAM 500 MG in IV NORMAL SALINE 100ML 100 ML IV SCH ×2 (08:09→21:50)
[2016-12-21] MEDS: MVI, ADULT NO.4 WITH VIT K 10 ML, THIAMINE 100 MG, FOLIC ACID 1 MG in IV NORMAL SALINE ... IV SCH ×4 (08:09)
[2016-12-21] MEDS: BUDESONIDE 0.5 MG/2 ML NEBU NEB SCH ×2 (08:33→19:41)
[2016-12-21 09:01] LABS: HCO3 ABG 24 mmol/L (21-28); PCO2 ABG 33 mmHg (35-46); PH ABG 7.48 (7.35-7.45); PO2 ABG 57 mmHg (65-108); SAT O2 ABG 89 % (92-99)
[2016-12-21 09:05] LABS: FIO2 ABG 40
--- NOTE | 2016-12-21 09:32 | PDOC ---
PROGRESS NOTES Subjective Subjective sedated on vent family at bedside Objective Objective Vital Signs Date Time Temp Pulse Resp B/P Pulse Ox O2 Delivery O2 Flow Rate FiO2 12/21/16 08:15 96 Ventilator 12/21/16 06:00 90 21 139/79 12/21/16 04:00 99.6 99.6 Intake and Output 12/21/16 06:59 Intake Total 4069.2 ml Output Total 2534 ml Balance 1535.2 ml IV Total 3169.2 ml Tube Feeding 900 ml Output Urine Total 2534 ml Physical Exam General: Other (sedated on vent, no distress) HEENT: Other (pupils equal and sluggish) Neuro: Other (localizes with right side) Skin: Other (dressings intact, dry, ICP 10) Assessment Assessment Problems Medical Problems: (1) Intraparenchymal hematoma of brain Status: Acute Plan Plan of Care wean from sedation and vent as tolerated d/w RN and family Comment Review of Relevant I have reviewed the following items jose alfredo (where applicable) has been applied. Labs Laboratory Tests Test 12/19/16 09:45 12/19/16 18:00 12/20/16 05:30 12/21/16 04:50 Sodium Level 139mmol/L (136-145) 138mmol/L (136-145) 137mmol/L (136-145) Potassium Level 3.3mmol/L (3.5-5.1) 3.7mmol/L (3.5-5.1) 3.6mmol/L (3.5-5.1) Chloride Level 106mmol/L (98-107) 107mmol/L (98-107) 104mmol/L (98-107) Carbon Dioxide Level 24mmol/L (21-32) 21mmol/L (21-32) 24mmol/L (21-32) Anion Gap 9 (6-14) 10 (6-14) 9 (6-14) Blood Urea Nitrogen 15mg/dL (8-26) 17mg/dL (8-26) 17mg/dL (8-26) Creatinine 0.6mg/dL (0.7-1.3) 0.5mg/dL (0.7-1.3) 0.5mg/dL (0.7-1.3) Estimated GFR (Cockcroft-Gault) 136.5 168.5 168.5 BUN/Creatinine Ratio 25 (6-20) Glucose Level 100mg/dL (70-99) 99mg/dL (70-99) 118mg/dL (70-99) Calcium Level 8.4mg/dL (8.5-10.1) 8.4mg/dL (8.5-10.1) 8.6mg/dL (8.5-10.1) Total Bilirubin 0.7mg/dL (0.2-1.0) Aspartate Amino Transf (AST/SGOT) 38U/L (15-37) Alanine Aminotransferase (ALT/SGPT) 24U/L (16-63) Alkaline Phosphatase 39U/L (46-116) Total Protein 5.6g/dL (6.4-8.2) Albumin 2.1g/dL (3.4-5.0) Albumin/Globulin Ratio 0.6 (1.0-1.7) Prothrombin Time 14.7SEC (11.7-14.0) Prothromb Time International Ratio 1.2 (0.8-1.1) Magnesium Level 2.0mg/dL (1.8-2.4) White Blood Count 8.1x10^3/uL (4.0-11.0) Red Blood Count 3.30x10^6/uL (4.30-5.70) Hemoglobin 11.0g/dL (13.0-17.5) Hematocrit 31.6% (39.0-53.0) Mean Corpuscular Volume 96fL (79-100) Mean Corpuscular Hemoglobin 33pg (25-35) Mean Corpuscular Hemoglobin Concent 35g/dL (31-37) Red Cell Distribution Width 12.4% (11.5-14.5) Platelet Count 253x10^3/uL (140-400) Neutrophils (%) (Auto) 68% (31-73) Lymphocytes (%) (Auto) 14% (24-48) Monocytes (%) (Auto) 17% (0-9) Eosinophils (%) (Auto) 1% (0-3) Basophils (%) (Auto) 1% (0-3) Neutrophils # (Auto) 5.5x10^3uL (1.8-7.7) Lymphocytes # (Auto) 1.1x10^3/uL (1.0-4.8) Monocytes # (Auto) 1.4x10^3/uL (0.0-1.1) Eosinophils # (Auto) 0.0x10^3/uL (0.0-0.7) Basophils # (Auto) 0.0x10^3/uL (0.0-0.2) Test 12/21/16 08:30 O2 Saturation 89% (92-99) Arterial Blood pH 7.48 (7.35-7.45) Arterial Blood pCO2 at Patient Temp 33mmHg (35-46) Arterial Blood pO2 at Patient Temp 57mmHg (65-108) Arterial Blood HCO3 24mmol/L (21-28) Arterial Blood Base Excess 1mmol/L (-3-3) FiO2 40 Laboratory Tests Test 12/21/16 04:50 12/21/16 08:30 White Blood Count 8.1x10^3/uL (4.0-11.0) Red Blood Count 3.30x10^6/uL (4.30-5.70) Hemoglobin 11.0g/dL (13.0-17.5) Hematocrit 31.6% (39.0-53.0) Mean Corpuscular Volume 96fL (79-100) Mean Corpuscular Hemoglobin 33pg (25-35) Mean Corpuscular Hemoglobin Concent 35g/dL (31-37) Red Cell Distribution Width 12.4% (11.5-14.5) Platelet Count 253x10^3/uL (140-400) Neutrophils (%) (Auto) 68% (31-73) Lymphocytes (%) (Auto) 14% (24-48) Monocytes (%) (Auto) 17% (0-9) Eosinophils (%) (Auto) 1% (0-3) Basophils (%) (Auto) 1% (0-3) Neutrophils # (Auto) 5.5x10^3uL (1.8-7.7) Lymphocytes # (Auto) 1.1x10^3/uL (1.0-4.8) Monocytes # (Auto) 1.4x10^3/uL (0.0-1.1) Eosinophils # (Auto) 0.0x10^3/uL (0.0-0.7) Basophils # (Auto) 0.0x10^3/uL (0.0-0.2) Sodium Level 137mmol/L (136-145) Potassium Level 3.6mmol/L (3.5-5.1) Chloride Level 104mmol/L (98-107) Carbon Dioxide Level 24mmol/L (21-32) Anion Gap 9 (6-14) Blood Urea Nitrogen 17mg/dL (8-26) Creatinine 0.5mg/dL (0.7-1.3) Estimated GFR (Cockcroft-Gault) 168.5 Glucose Level 118mg/dL (70-99) Calcium Level 8.6mg/dL (8.5-10.1) O2 Saturation 89% (92-99) Arterial Blood pH 7.48 (7.35-7.45) Arterial Blood pCO2 at Patient Temp 33mmHg (35-46) Arterial Blood pO2 at Patient Temp 57mmHg (65-108) Arterial Blood HCO3 24mmol/L (21-28) Arterial Blood Base Excess 1mmol/L (-3-3) FiO2 40 Medications Current Medications Multivitamins/ Minerals/Folic Acid/Thiamine HCl/ Sodium Chloride (Infuvite Adult / Iv Sodium Chloride 0.9% 1000ml Bag) 1,011.2 ml @ 1,000 mls/ hr 1X ONCE IV Last administered on 12/15/16t 18:53; Start 12/15/16 at 18:45; Stop 12/15/16 at 19: 45; Status DC Ondansetron HCl 4 mg 4 mg 1X ONCE IV ; Start 12/15/16 at 18:45; Stop 12/15/16 at 18:46; Status DC Propofol 0 ml @ As Directed STK-MED ONCE IV ; Start 12/15/16 at 19:57; Stop at 19:58; Status DC Propofol (Diprivan) 50 ml @ As Directed STK-MED ONCE IV ; Start 12/15/16 at 19:57 ; Stop 12/15/16 at 19:58; Status DC Lidocaine HCl 100 mg STK-MED ONCE .ROUTE ; Start 12/15/16 at 20:45; Stop 12/15/16 at 20:46; Status DC Fentanyl Citrate (Fentanyl 2ml Vial) 100 mcg STK-MED ONCE .ROUTE ; Start at 20:46; Stop 12/15/16 at 20:47; Status DC Rocuronium [place] (Zemuron) 50 mg STK-MED ONCE .ROUTE ; Start 12/15/16 at 20:46 ; Stop 12/15/16 at 20:47; Status DC Ondansetron HCl 4 mg 4 mg PRN Q8HRS PRN IV NAUSEA/VOMITING; Start 12/15/16 at 20 :45; Stop 12/15/16 at 23:44; Status DC Sodium Chloride (Iv Sodium Chloride 0.9% 1000ml Bag) 1,000 ml @ 100 mls/hr Q10H IV Last administered on 12/16/16 06:45; Start 12/15/16 at 20:45; Stop 08/22 at 07:25; Status DC Acetaminophen (Tylenol) 650 mg PRN Q4HRS PRN PO FEVER Last administered on 12/16 16:43; Start 12/15/16 at 20:45; Stop 12/16/16 at 20:44; Status DC Etomidate (Amidate) 20 mg 1X ONCE IV Last administered on 12/15/16 19:51; Start 12/15/16 at 20:45; Stop 12/15/16 at 20:53; Status DC Succinylcholine Chloride 100 mg 100 mg 1X ONCE IV Last administered on 19:52; Start 12/15/16 at 20:45; Stop 12/15/16 at 20:53; Status DC Bacitracin/Sodium Chloride (Iv Sodium Chloride 0.9% 1000ml Bag) 1,000 ml @ 1, 000 mls/hr 1X PERIOP ONCE IRR Last administered on 12/15/16 22:05; Start at 21:00; Stop 12/15/16 at 21:59; Status DC Cellulose 1 each STK-MED ONCE .ROUTE Last administered on 12/15/16 22:05; Start 12/15/16 at 20:58; Stop 12/15/16 at 20:59; Status DC Bupivacaine HCl/ Epinephrine Bitart (Sensorcain-Mpf Epi 0.5%-1:[id number]) 30 ml STK -MED ONCE .ROUTE Last administered on 12/15/16 22:05; Start 12/15/16 at 20:58; Stop 12/15/16 at 20:59; Status DC Gelatin (Gelfoam Size 100) 1 each STK-MED ONCE .ROUTE Last administered on 12/15 22:05; Start 12/15/16 at 20:58; Stop 12/15/16 at 20:59; Status DC Thrombin 45571 unit 20,000 unit STK-MED ONCE TP Last administered on 12/15/16 22:05; Start 12/15/16 at 20:58; Stop 12/15/16 at 20:59; Status DC Propofol (Diprivan) 20 ml @ As Directed STK-MED ONCE IV ; Start 12/15/16 at 21:06 ; Stop 12/15/16 at 21:07; Status DC Desflurane 60 ml 60 ml STK-MED ONCE IH ; Start 12/15/16 at 21:49; Stop 12/15/16 at 21:50; Status DC Cefazolin Sodium/ Dextrose 50 ml @ As Directed STK-MED ONCE IV ; Start 12/15/16 at 21:52; Stop 12/15/16 at 21:53; Status DC Mannitol (Mannitol Iv Soln) 500 ml @ As Directed STK-MED ONCE IV ; Start at 21:53; Stop 12/15/16 at 21:54; Status DC Phenylephrine HCl 1 mg 1 mg STK-MED ONCE IV ; Start 12/15/16 at 21:55; Stop at 21:56; Status DC Levetiracetam/ Sodium Chloride (Keppra/Iv Sodium Chloride 0.9% 100ml) 100 ml @ 400 mls/hr 1X ONCE IV Last administered on 12/15/16 22:30; Start 12/15/16 at 22 :15; Stop 12/15/16 at 22:29; Status DC Ondansetron HCl (Zofran) 4 mg PRN Q6HRS PRN IV Nausea; Start 12/15/16 at 22:30; Stop 12/16/16 at 14:48; Status DC Fentanyl Citrate (Fentanyl 2ml Vial) 25 mcg PRN Q5MIN PRN IV MILD PAIN; Start 12/15/16 at 22:30; Stop 12/16/16 at 13:00; Status DC Fentanyl Citrate (Fentanyl 2ml Vial) 50 mcg PRN Q5MIN PRN IV MODERATE PAIN; Start 12/15/16 at 22:30; Stop 12/16/16 at 13:00; Status DC Morphine Sulfate 1 mg 1 mg PRN Q10MIN PRN IV SEVERE PAIN; Start 12/15/16 at 22: 30; Stop 12/16/16 at 13:08; Status DC Lactated Ringer's (Iv Lactated Ringers) 1,000 ml @ 0 mls/hr Q0M IV ; Start 12/15 at 22:30; Stop 12/16/16 at 13:08; Status DC Lidocaine HCl 2 ml 1X PRN PRN ID IV START; Start 12/15/16 at 22:30; Stop at 13:08; Status DC Hydromorphone HCl (Dilaudid) 0.5 mg PRN Q10MIN PRN IV SEV PAIN,Second choice; Start 12/15/16 at 22:30; Stop 12/16/16 at 13:01; Status DC Prochlorperazine Edisylate 5 mg 5 mg PACU PRN PRN IV NAUSEA; Start 12/15/16 at 22:30; Stop 12/16/16 at 13:08; Status DC Propofol 100 ml @ As Directed STK-MED ONCE IV ; Start 12/15/16 at 23:13; Stop at 23:14; Status DC Nicardipine HCl/ Sodium Chloride (Cardene/Iv Sodium Chloride 0.9% 250ml) 270 ml @ 27 mls/hr TITRATE PRN IV PER PROTOCOL; Start 12/15/16 at 23:30 Diphenhydramine HCl (Benadryl) 25 mg PRN Q6HRS PRN PO ITCHING; Start 12/15/16 at 23:30; Stop 12/19/16 at 12:54; Status DC Diphenhydramine HCl 25 mg 25 mg PRN Q6HRS PRN IV ITCHING; Start 12/15/16 at 23: 30 Levetiracetam/ Sodium Chloride (Keppra/Iv Sodium Chloride 0.9% 100ml) 105 ml @ 400 mls/hr Q12HR IV Last administered on 12/21/16t 08:09; Start 12/16/16 at 09: 00 Sodium Chloride (Normal Saline Flush) 3 ml QSHIFT PRN IV AFTER MEDS AND BLOOD DRAWS; Start 12/15/16 at 23:30 Dextrose 12.5 gm PRN Q15MIN PRN IV SEE COMMENTS; Start 12/15/16 at 23:30 Magnesium Hydroxide (Milk Of Magnesia) 2,400 mg PRN Q12HR PRN PO CONSTIPATION; Start 12/15/16 at 23:30 Ondansetron HCl 4 mg 4 mg PRN Q6HRS PRN IV NAUESA, 1ST CHOICE; Start 12/15/16 at 23:30 Cefazolin Sodium 1 gm/Sodium Chloride 50 ml @ 100 mls/hr Q8HRS IV Last administered on 12/16/16 21:05; Start 12/16/16 at 06:00; Stop 12/16/16 at 22:29 ; Status DC Potassium Chloride/Dextrose/ Sod Cl (KCl 20 Meq In D5W-1/2 NS) 1,000 ml @ 75 mls/hr [id number] IV Last administered on 12/18/16 18:18; Start 12/15/16 at 23:30 ; Stop 12/19/16 at 09:48; Status DC Fentanyl Citrate (Fentanyl 2ml Vial) 25 mcg PRN Q1HR PRN IV PAIN Last administered on 12/18/16 12:01; Start 12/15/16 at 23:30 Fentanyl Citrate (Fentanyl 2ml Vial) 50 mcg PRN Q1HR PRN IV PAIN Last administered on 12/20/16 04:12; Start 12/15/16 at 23:30 Info (Do NOT chart on this placeholder) 1 each 1X ONCE MC ; Start 12/16/16 at 04:00; Stop 12/16/16 at 04:01; Status UNV Pneumococcal Polyvalent Vaccine (Do NOT chart on this placeholder) 1 each 1X ONCE MC ; Start 12/16/16 at 04:00; Stop 12/16/16 at 04:01; Status UNV Influenza Virus Vaccine Quadrival (Fluarix Quad [id number] Syringe) 0.5 ml ONCE ONCE VAX IM Last administered on 12/17/16 08:49; Start 12/16/16 at 09:00; Stop 12/16/16 at 09:01; Status DC Pneumococcal Polyvalent Vaccine 0.5 ml 0.5 ml ONCE ONCE VAX IM Last administered on 12/17/16 08:47; Start 12/16/16 at 09:00; Stop 12/16/16 at 09:01 ; Status DC Propofol 100 ml @ 0 mls/hr CONT PRN IV SEE I/O RECORD Last administered on 12/21 02:53; Start 12/16/16 at 04:30 Propofol 100 ml @ 0 mls/hr CONT PRN IV SEE I/O RECORD; Start 12/16/16 at 00:00 ; Stop 12/16/16 at 03:00; Status Cancel Propofol 100 ml @ 0 mls/hr CONT PRN IV SEE I/O RECORD Last administered on 20:00; Start 12/16/16 at 00:00; Stop 12/16/16 at 09:04; Status DC Multivitamins/ Minerals/Thiamine HCl/Folic Acid/ Sodium Chloride (Infuvite Adult / Iv Sodium Chloride 0.9% 1000ml Bag) 1,011.2 ml @ 100 mls/ hr DAILY IV Last administered on 12/21/16 08:09; Start 12/16/16 at 10:00; Stop 12/22/16 at 09:59 Lorazepam (Ativan) 2 mg PRN Q1HR PRN IV For CIWA 8-14; Start 12/16/16 at 10:00 Lorazepam (Ativan) 4 mg PRN Q1HR PRN IV For CIWA 15 or greater; Start 12/16/16 at 10:00 Piperacillin Sod/ Tazobactam Sod (Zosyn Per Pharmacy) 1 each PRN DAILY PRN MC SEE COMMENTS; Start 12/16/16 at 10:30; Stop 12/18/16 at 11:54; Status DC Vancomycin HCl 1 each 1 each PRN DAILY PRN MC SEE COMMENTS Last administered on 12/18/16 04:00; Start 12/16/16 at 10:30; Stop 12/18/16 at 11:54; Status DC Vancomycin HCl 1.5 gm/Sodium Chloride 500 ml @ 250 mls/hr 1X ONCE IV Last administered on 12/16/16 14:08; Start 12/16/16 at 11:00; Stop 12/16/16 at 12:59 ; Status DC Piperacillin Sod/ Tazobactam Sod/ Sodium Chloride (Zosyn/Iv Sodium Chloride 0.9 % 100ml) 100 ml @ 200 mls/hr Q6HRS IV Last administered on 12/18/16 05:11; Start 12/16/16 at 12:00; Stop 12/18/16 at 11:54; Status DC Propofol 1000 mg 1,000 mg STK-MED ONCE IV ; Start 12/15/16 at 23:00; Stop at 13:28; Status DC Vancomycin HCl/ Sodium Chloride (Iv Sodium Chloride 0.9% 250ml) 250 ml @ 250 mls/hr Q12H IV Last administered on 12/18/16 02:00; Start 12/17/16 at 02:00; Stop 12/18/16 at 03:45; Status DC Vancomycin HCl 1 each 1X ONCE MC Last administered on 12/18/16 01:30; Start 12/18/16 at 01:30; Stop 12/18/16 at 11:54; Status DC Hydralazine HCl (Apresoline) 10 mg PRN Q4HRS PRN IVP ELEVATED BP, SEE COMMENTS Last administered on 12/21/16 05:26; Start 12/17/16 at 12:15 Potassium Chloride 40 meq 40 meq 1X ONCE PO ; Start 12/17/16 at 18:15; Stop 09/22 at 18:16; Status Cancel Potassium Chloride 50 ml @ 50 mls/hr Q1H IV Last administered on 12/18/16 00: 55; Start 12/17/16 at 19:00; Stop 12/17/16 at 20:59; Status DC Vancomycin HCl/ Sodium Chloride (Iv Sodium Chloride 0.9% 250ml) 250 ml @ 250 mls/hr Q8H IV Last administered on 12/18/16 03:54; Start 12/18/16 at 04:00; Stop 12/18/16 at 11:54; Status DC Vancomycin HCl 1 each 1X ONCE MC ; Start 12/19/16 at 03:30; Stop 12/19/16 at 03 :30; Status DC Budesonide (Pulmicort) 0.5 mg RTBID NEB Last administered on 12/21/16 08:33; Start 12/18/16 at 08:00 Vecuronium [place] 6 mg 6 mg 1X ONCE IV Last administered on 12/18/16 13:09; Start 12/18/16 at 13:00; Stop 12/18/16 at 13:01; Status DC Magnesium Sulfate/ Dextrose 50 ml @ 25 mls/hr 1X ONCE IV Last administered on 12/18/16 15:34; Start 12/18/16 at 15:00; Stop 12/18/16 at 16:59; Status DC Potassium Chloride 100 ml @ 100 mls/hr Q1H IV Last administered on 12/18/16 18:17; Start 12/18/16 at 15:00; Stop 12/18/16 at 18:59; Status DC Cefazolin Sodium 1 gm/Sodium Chloride 50 ml @ 100 mls/hr Q8HRS IV Last administered on 12/21/16 05:26; Start 12/19/16 at 10:00 Magnesium Sulfate/ Dextrose 50 ml @ 25 mls/hr 1X ONCE IV Last administered on 12/19/16 10:42; Start 12/19/16 at 10:30; Stop 12/19/16 at 12:29; Status DC Sodium Chloride/ Potassium Chloride/ Potassium Phosphate/ Magnesium Sulfate/ Calcium Gluconate/ Multivitamins/ Minerals/Chromium/ Copper/Manganese/ Seleni/Zn /Total Parenteral Nutrition/Amino Acids/Dextrose/ Fat Emulsion Intravenous ( Sodium Chloride/ Potassium Phospha... 87.0013 ml @ 3.625 mls/hr TPN CONT IV ; Start 12/19/16 at 22:00; Stop 12/19/16 at 22:00; Status Cancel Info 1 each 1 each PRN DAILY PRN MC SEE COMMENTS; Start 12/19/16 at 10:00; Stop 12/19/16 at 10:00; Status DC Potassium Chloride (KCl Premix 10meq) 100 ml @ 100 mls/hr Q1H IV Last administered on 12/19/16 20:52; Start 12/19/16 at 11:00; Stop 12/19/16 at 14:59 ; Status DC Acetaminophen (Tylenol) 650 mg PRN Q6HRS PRN PO MILD PAIN / TEMP; Start at 13:45; Status Cancel Acetaminophen 650 mg 650 mg PRN Q6HRS PRN PEG MILD PAIN / TEMP Last administered on 12/19/16 13:58; Start 12/19/16 at 14:00 Potassium Chloride/Sodium Chloride (Iv Sodium Chloride 0.45%) 1,015 ml @ 75 mls /hr [id number] IV Last administered on 12/19/16 21:24; Start 12/19/16 at 21:30; Stop 12/20/16 at 08:48; Status DC Furosemide (Lasix) 20 mg 1X ONCE IVP Last administered on 12/20/16 09:09; Start 12/20/16 at 09:30; Stop 12/20/16 at 09:31; Status DC Iohexol (Omnipaque 300 Mg/ml) 100 ml STK-MED ONCE .ROUTE ; Start 12/20/16 at 16: 17; Stop 12/20/16 at 16:18; Status DC Lidocaine HCl 20 ml 20 ml STK-MED ONCE .ROUTE ; Start 12/20/16 at 16:17; Stop at 16:18; Status DC Heparin Sodium/ Sodium Chloride 500 ml @ As Directed STK-MED ONCE .ROUTE ; Start 12/20/16 at 16:17; Stop 12/20/16 at 16:18; Status DC Heparin Sodium/ Sodium Chloride 1,000 unit 1X ONCE IART Last administered on 16:45; Start 12/20/16 at 16:45; Stop 12/20/16 at 16:46; Status DC Iohexol (Omnipaque 300 Mg/ml) 100 ml 1X ONCE IART Last administered on 16:45; Start 12/20/16 at 16:45; Stop 12/20/16 at 16:46; Status DC Lidocaine HCl 20 ml 1X ONCE IJ Last administered on 12/20/16 16:45; Start at 16:45; Stop 12/20/16 at 16:46; Status DC Active Scripts Active Reported Benazepril Hcl 40 Mg Tablet 1 Tab PO DAILY Amlodipine Besylate 5 Mg Tablet 5 Mg PO DAILY Vitals/I & O Vital Sign - Last 24 Hours 12/20/16 12/20/16 12/20/16 12/20/16 10:00 11:00 11:29 12:00 Temp 100.3 100.3 Pulse 66 81 66 Resp B/P 156/79 160/85 155/78 Pulse Ox 100 99 100 100 O2 Delivery Ventilator Ventilator Ventilator Ventilator 12/20/16 12/20/16 12/20/16 12/20/16 12:00 13:00 13:15 13:30 Pulse 95 95 Resp 23 B/P 171/77 171/77 Pulse Ox 97 98 O2 Delivery Mechanical Ventilator Ventilator Ventilator 12/20/16 12/20/16 12/20/16 12/20/16 14:00 15:00 15:56 16:00 Pulse 114 90 Resp 27 24 B/P 152/65 121/67 Pulse Ox 98 99 98 O2 Delivery Ventilator Ventilator Ventilator Mechanical Ventilator 12/20/16 12/20/16 12/20/16 12/20/16 16:00 17:00 18:00 19:00 Temp 99.6 99.6 Pulse 86 86 74 94 Resp 23 23 16 23 B/P 140/77 129/74 133/77 142/88 Pulse Ox 100 100 100 100 O2 Delivery Ventilator Ventilator Ventilator 12/20/16 12/20/16 12/20/16 12/20/16 20:00 20:00 20:05 21:00 Temp 98.2 98.2 Pulse 72 103 Resp 18 21 B/P 144/79 141/86 Pulse Ox 100 100 100 O2 Delivery Ventilator Mechanical Ventilator Ventilator Ventilator 12/20/16 12/20/16 12/20/16 12/20/16 22:00 22:40 23:00 23:02 Pulse 74 92 Resp 18 21 B/P 161/99 149/85 151/87 Pulse Ox 100 100 100 O2 Delivery Ventilator Ventilator Ventilator 12/21/16 12/21/16 12/21/16 12/21/16 00:00 00:00 01:00 01:18 Temp 100.3 100.3 Pulse 80 86 Resp 18 20 B/P 126/71 151/89 Pulse Ox 100 100 100 O2 Delivery Mechanical Ventilator Ventilator Ventilator Ventilator 12/21/16 12/21/16 12/21/16 12/21/16 02:00 03:00 04:00 04:00 Temp 99.6 99.6 Pulse 69 79 82 Resp 18 18 18 B/P 136/81 145/80 141/82 Pulse Ox 100 100 100 O2 Delivery Ventilator Ventilator Mechanical Ventilator Ventilator 12/21/16 12/21/16 12/21/16 12/21/16 05:00 05:00 05:26 06:00 Pulse 72 77 90 Resp 17 21 B/P 167/94 167/94 139/79 Pulse Ox 100 100 100 O2 Delivery Ventilator Ventilator Ventilator 12/21/16 08:15 Pulse Ox 96 O2 Delivery Ventilator Intake and Output 12/20/16 12/20/16 12/21/16 14:59 22:59 06:59 Intake Total 125 ml 2850.2 ml 1094 ml Output Total 1600 ml 615 ml 319 ml Balance -1475 ml 2235.2 ml 775 ml ELA DUARTE APRN Dec 21, 2016 09:32
[2016-12-21] MEDS ORDERED: FUROSEMIDE 40 MG/4 ML VIAL IVP ONE (10:15)
--- NOTE | 2016-12-21 10:25 | RAD ---
INDICATION: daily vent COMPARISON: 12/19/2016 FINDINGS: Single view of chest obtained. Endotracheal tube mid thoracic trachea. Right-sided PICC line with tip near atriocaval junction. Enteric tube seen coursing below diaphragm. Cardiac silhouette is mildly prominent. Haziness at left lung base with suspected pleural effusion Mild interstitial prominence of lungs again seen. Could be mild pulmonary vascular congestion or interstitial infiltrate. IMPRESSION: Lines and tubes as above. Haziness at left lung base with suspected small pleural effusion. Could be from atelectasis or infiltrate
--- NOTE | 2016-12-21 11:41 | PDOC ---
PULMONARY PROGRESS NOTES Subjective PT OFF SEDATION AWAKE AT TIMES Vitals Vital Signs Date Time Temp Pulse Resp B/P Pulse Ox O2 Delivery O2 Flow Rate FiO2 12/21/16 10:00 98.9 89 18 133/94 100 Ventilator 98.9 HEENT: Other (s/p crani, perrl, orally intubated, nose clear. ) Lungs: Clear Cardiovascular: S1, S2 Abdomen: Soft, Non-tender, Other (no mass) Extremities: No Edema Skin: Warm Labs Laboratory Tests Test 12/19/16 18:00 12/20/16 05:30 12/21/16 04:50 12/21/16 08:30 Prothrombin Time 14.7SEC (11.7-14.0) Prothromb Time International Ratio 1.2 (0.8-1.1) Sodium Level 138mmol/L (136-145) 137mmol/L (136-145) Potassium Level 3.7mmol/L (3.5-5.1) 3.6mmol/L (3.5-5.1) Chloride Level 107mmol/L (98-107) 104mmol/L (98-107) Carbon Dioxide Level 21mmol/L (21-32) 24mmol/L (21-32) Anion Gap 10 (6-14) 9 (6-14) Blood Urea Nitrogen 17mg/dL (8-26) 17mg/dL (8-26) Creatinine 0.5mg/dL (0.7-1.3) 0.5mg/dL (0.7-1.3) Estimated GFR (Cockcroft-Gault) 168.5 168.5 Glucose Level 99mg/dL (70-99) 118mg/dL (70-99) Calcium Level 8.4mg/dL (8.5-10.1) 8.6mg/dL (8.5-10.1) Magnesium Level 2.0mg/dL (1.8-2.4) White Blood Count 8.1x10^3/uL (4.0-11.0) Red Blood Count 3.30x10^6/uL (4.30-5.70) Hemoglobin 11.0g/dL (13.0-17.5) Hematocrit 31.6% (39.0-53.0) Mean Corpuscular Volume 96fL (79-100) Mean Corpuscular Hemoglobin 33pg (25-35) Mean Corpuscular Hemoglobin Concent 35g/dL (31-37) Red Cell Distribution Width 12.4% (11.5-14.5) Platelet Count 253x10^3/uL (140-400) Neutrophils (%) (Auto) 68% (31-73) Lymphocytes (%) (Auto) 14% (24-48) Monocytes (%) (Auto) 17% (0-9) Eosinophils (%) (Auto) 1% (0-3) Basophils (%) (Auto) 1% (0-3) Neutrophils # (Auto) 5.5x10^3uL (1.8-7.7) Lymphocytes # (Auto) 1.1x10^3/uL (1.0-4.8) Monocytes # (Auto) 1.4x10^3/uL (0.0-1.1) Eosinophils # (Auto) 0.0x10^3/uL (0.0-0.7) Basophils # (Auto) 0.0x10^3/uL (0.0-0.2) O2 Saturation 89% (92-99) Arterial Blood pH 7.48 (7.35-7.45) Arterial Blood pCO2 at Patient Temp 33mmHg (35-46) Arterial Blood pO2 at Patient Temp 57mmHg (65-108) Arterial Blood HCO3 24mmol/L (21-28) Arterial Blood Base Excess 1mmol/L (-3-3) FiO2 40 Laboratory Tests Test 12/21/16 04:50 12/21/16 08:30 White Blood Count 8.1x10^3/uL (4.0-11.0) Red Blood Count 3.30x10^6/uL (4.30-5.70) Hemoglobin 11.0g/dL (13.0-17.5) Hematocrit 31.6% (39.0-53.0) Mean Corpuscular Volume 96fL (79-100) Mean Corpuscular Hemoglobin 33pg (25-35) Mean Corpuscular Hemoglobin Concent 35g/dL (31-37) Red Cell Distribution Width 12.4% (11.5-14.5) Platelet Count 253x10^3/uL (140-400) Neutrophils (%) (Auto) 68% (31-73) Lymphocytes (%) (Auto) 14% (24-48) Monocytes (%) (Auto) 17% (0-9) Eosinophils (%) (Auto) 1% (0-3) Basophils (%) (Auto) 1% (0-3) Neutrophils # (Auto) 5.5x10^3uL (1.8-7.7) Lymphocytes # (Auto) 1.1x10^3/uL (1.0-4.8) Monocytes # (Auto) 1.4x10^3/uL (0.0-1.1) Eosinophils # (Auto) 0.0x10^3/uL (0.0-0.7) Basophils # (Auto) 0.0x10^3/uL (0.0-0.2) Sodium Level 137mmol/L (136-145) Potassium Level 3.6mmol/L (3.5-5.1) Chloride Level 104mmol/L (98-107) Carbon Dioxide Level 24mmol/L (21-32) Anion Gap 9 (6-14) Blood Urea Nitrogen 17mg/dL (8-26) Creatinine 0.5mg/dL (0.7-1.3) Estimated GFR (Cockcroft-Gault) 168.5 Glucose Level 118mg/dL (70-99) Calcium Level 8.6mg/dL (8.5-10.1) O2 Saturation 89% (92-99) Arterial Blood pH 7.48 (7.35-7.45) Arterial Blood pCO2 at Patient Temp 33mmHg (35-46) Arterial Blood pO2 at Patient Temp 57mmHg (65-108) Arterial Blood HCO3 24mmol/L (21-28) Arterial Blood Base Excess 1mmol/L (-3-3) FiO2 40 Medications Active Scripts Medications Dose Route/Sig Days Date Category Benazepril Hcl 40 Mg Tablet 1 Tab PO DAILY 12/16/16 Reported Amlodipine Besylate 5 Mg Tablet 5 Mg PO DAILY 12/16/16 Reported Comments CXR MILD CONGESTION Impression . IMPRESSION: 1. Acute respiratory failure secondary ICH 2. 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 3. Underlying chronic obstructive pulmonary disease, unknown FEV1, smoked for 40 years. 4. Underlying alcoholism. 5. Respiratory alkalosis on the ventilator. 6. Fever may be central Plan . SPOKE WITH WILL MAINTAIN OFF SEDATION PRN VERSED MAY NEED A TRACH S/P IVC CONTINUE THE SAME FOR NOW ROQUE HUDDLESTON MD Dec 21, 2016 11:41
--- NOTE | 2016-12-21 13:04 | PDOC ---
PROGRESS NOTES Chief Complaint Chief Complaint cc: ams A/P Right frontal craniotomy with evacuation of intracerebral hematoma and placement of external ventricular drain in the right lateral ventricle.POD 5 Alcohol abuse Respiratory failure on Mechanical ventilation Elective Encephalopathy due to above Leucocytosis better Hyponatremia labs pending fever resolved. Plan On mechanical ventilation, off sedation, SBT ok, but not waking up totally CIWA protocol for alcohol withdrawal precaution on cefazolin NS following Keppra for seizure precautions BP goal < SBP 130 Replace IV potassium and Magnesium GI prophylaxis NO dvt prophylaxis Tube feeds, dc ivf, lasix 40mg x1 family at bedside, all questions answered try wean daily off sedation IVC filter for PE prevention as per neurosx on 12/20 if cont having fever, will likely need to treat for asa PNA. fu cbc, cxr History of Present Illness History of Present Illness intubated. failed wean trial yesterday with tachycardia and HTN low grade fever Vitals Vitals Vital Signs Date Time Temp Pulse Resp B/P Pulse Ox O2 Delivery O2 Flow Rate FiO2 12/21/16 11:00 87 18 135/77 100 Ventilator 12/21/16 10:00 98.9 98.9 Physical Exam General: Other (sedated on vent, no distress) Heart: Normal S1, Normal S2 Lungs: Clear Abdomen: Normal bowel sounds, Soft Extremities: No clubbing, No cyanosis Skin: Other (dressings intact, dry, ICP 10) Labs LABS Laboratory Tests Test 12/21/16 04:50 12/21/16 08:30 White Blood Count 8.1x10^3/uL (4.0-11.0) Red Blood Count 3.30x10^6/uL (4.30-5.70) Hemoglobin 11.0g/dL (13.0-17.5) Hematocrit 31.6% (39.0-53.0) Mean Corpuscular Volume 96fL (79-100) Mean Corpuscular Hemoglobin 33pg (25-35) Mean Corpuscular Hemoglobin Concent 35g/dL (31-37) Red Cell Distribution Width 12.4% (11.5-14.5) Platelet Count 253x10^3/uL (140-400) Neutrophils (%) (Auto) 68% (31-73) Lymphocytes (%) (Auto) 14% (24-48) Monocytes (%) (Auto) 17% (0-9) Eosinophils (%) (Auto) 1% (0-3) Basophils (%) (Auto) 1% (0-3) Neutrophils # (Auto) 5.5x10^3uL (1.8-7.7) Lymphocytes # (Auto) 1.1x10^3/uL (1.0-4.8) Monocytes # (Auto) 1.4x10^3/uL (0.0-1.1) Eosinophils # (Auto) 0.0x10^3/uL (0.0-0.7) Basophils # (Auto) 0.0x10^3/uL (0.0-0.2) Sodium Level 137mmol/L (136-145) Potassium Level 3.6mmol/L (3.5-5.1) Chloride Level 104mmol/L (98-107) Carbon Dioxide Level 24mmol/L (21-32) Anion Gap 9 (6-14) Blood Urea Nitrogen 17mg/dL (8-26) Creatinine 0.5mg/dL (0.7-1.3) Estimated GFR (Cockcroft-Gault) 168.5 Glucose Level 118mg/dL (70-99) Calcium Level 8.6mg/dL (8.5-10.1) O2 Saturation 89% (92-99) Arterial Blood pH 7.48 (7.35-7.45) Arterial Blood pCO2 at Patient Temp 33mmHg (35-46) Arterial Blood pO2 at Patient Temp 57mmHg (65-108) Arterial Blood HCO3 24mmol/L (21-28) Arterial Blood Base Excess 1mmol/L (-3-3) FiO2 40 Review of Systems Review of Systems no fever, chills Assessment and Plan Assessmemt and Plan Problems Medical Problems: (1) Intraparenchymal hematoma of brain Status: Acute Problems: Comment Review of Relevant I have reviewed the following items jose alfredo (where applicable) has been applied. Labs Laboratory Tests Test 12/19/16 18:00 12/20/16 05:30 12/21/16 04:50 12/21/16 08:30 Prothrombin Time 14.7SEC (11.7-14.0) Prothromb Time International Ratio 1.2 (0.8-1.1) Sodium Level 138mmol/L (136-145) 137mmol/L (136-145) Potassium Level 3.7mmol/L (3.5-5.1) 3.6mmol/L (3.5-5.1) Chloride Level 107mmol/L (98-107) 104mmol/L (98-107) Carbon Dioxide Level 21mmol/L (21-32) 24mmol/L (21-32) Anion Gap 10 (6-14) 9 (6-14) Blood Urea Nitrogen 17mg/dL (8-26) 17mg/dL (8-26) Creatinine 0.5mg/dL (0.7-1.3) 0.5mg/dL (0.7-1.3) Estimated GFR (Cockcroft-Gault) 168.5 168.5 Glucose Level 99mg/dL (70-99) 118mg/dL (70-99) Calcium Level 8.4mg/dL (8.5-10.1) 8.6mg/dL (8.5-10.1) Magnesium Level 2.0mg/dL (1.8-2.4) White Blood Count 8.1x10^3/uL (4.0-11.0) Red Blood Count 3.30x10^6/uL (4.30-5.70) Hemoglobin 11.0g/dL (13.0-17.5) Hematocrit 31.6% (39.0-53.0) Mean Corpuscular Volume 96fL (79-100) Mean Corpuscular Hemoglobin 33pg (25-35) Mean Corpuscular Hemoglobin Concent 35g/dL (31-37) Red Cell Distribution Width 12.4% (11.5-14.5) Platelet Count 253x10^3/uL (140-400) Neutrophils (%) (Auto) 68% (31-73) Lymphocytes (%) (Auto) 14% (24-48) Monocytes (%) (Auto) 17% (0-9) Eosinophils (%) (Auto) 1% (0-3) Basophils (%) (Auto) 1% (0-3) Neutrophils # (Auto) 5.5x10^3uL (1.8-7.7) Lymphocytes # (Auto) 1.1x10^3/uL (1.0-4.8) Monocytes # (Auto) 1.4x10^3/uL (0.0-1.1) Eosinophils # (Auto) 0.0x10^3/uL (0.0-0.7) Basophils # (Auto) 0.0x10^3/uL (0.0-0.2) O2 Saturation 89% (92-99) Arterial Blood pH 7.48 (7.35-7.45) Arterial Blood pCO2 at Patient Temp 33mmHg (35-46) Arterial Blood pO2 at Patient Temp 57mmHg (65-108) Arterial Blood HCO3 24mmol/L (21-28) Arterial Blood Base Excess 1mmol/L (-3-3) FiO2 40 Laboratory Tests Test 12/21/16 04:50 12/21/16 08:30 White Blood Count 8.1x10^3/uL (4.0-11.0) Red Blood Count 3.30x10^6/uL (4.30-5.70) Hemoglobin 11.0g/dL (13.0-17.5) Hematocrit 31.6% (39.0-53.0) Mean Corpuscular Volume 96fL (79-100) Mean Corpuscular Hemoglobin 33pg (25-35) Mean Corpuscular Hemoglobin Concent 35g/dL (31-37) Red Cell Distribution Width 12.4% (11.5-14.5) Platelet Count 253x10^3/uL (140-400) Neutrophils (%) (Auto) 68% (31-73) Lymphocytes (%) (Auto) 14% (24-48) Monocytes (%) (Auto) 17% (0-9) Eosinophils (%) (Auto) 1% (0-3) Basophils (%) (Auto) 1% (0-3) Neutrophils # (Auto) 5.5x10^3uL (1.8-7.7) Lymphocytes # (Auto) 1.1x10^3/uL (1.0-4.8) Monocytes # (Auto) 1.4x10^3/uL (0.0-1.1) Eosinophils # (Auto) 0.0x10^3/uL (0.0-0.7) Basophils # (Auto) 0.0x10^3/uL (0.0-0.2) Sodium Level 137mmol/L (136-145) Potassium Level 3.6mmol/L (3.5-5.1) Chloride Level 104mmol/L (98-107) Carbon Dioxide Level 24mmol/L (21-32) Anion Gap 9 (6-14) Blood Urea Nitrogen 17mg/dL (8-26) Creatinine 0.5mg/dL (0.7-1.3) Estimated GFR (Cockcroft-Gault) 168.5 Glucose Level 118mg/dL (70-99) Calcium Level 8.6mg/dL (8.5-10.1) O2 Saturation 89% (92-99) Arterial Blood pH 7.48 (7.35-7.45) Arterial Blood pCO2 at Patient Temp 33mmHg (35-46) Arterial Blood pO2 at Patient Temp 57mmHg (65-108) Arterial Blood HCO3 24mmol/L (21-28) Arterial Blood Base Excess 1mmol/L (-3-3) FiO2 40 Medications Current Medications Multivitamins/ Minerals/Folic Acid/Thiamine HCl/ Sodium Chloride (Infuvite Adult / Iv Sodium Chloride 0.9% 1000ml Bag) 1,011.2 ml @ 1,000 mls/ hr 1X ONCE IV Last administered on 12/15/16t 18:53; Start 12/15/16 at 18:45; Stop 12/15/16 at 19: 45; Status DC Ondansetron HCl 4 mg 4 mg 1X ONCE IV ; Start 12/15/16 at 18:45; Stop 12/15/16 at 18:46; Status DC Propofol 0 ml @ As Directed STK-MED ONCE IV ; Start 12/15/16 at 19:57; Stop at 19:58; Status DC Propofol (Diprivan) 50 ml @ As Directed STK-MED ONCE IV ; Start 12/15/16 at 19:57 ; Stop 12/15/16 at 19:58; Status DC Lidocaine HCl 100 mg STK-MED ONCE .ROUTE ; Start 12/15/16 at 20:45; Stop 12/15/16 at 20:46; Status DC Fentanyl Citrate (Fentanyl 2ml Vial) 100 mcg STK-MED ONCE .ROUTE ; Start at 20:46; Stop 12/15/16 at 20:47; Status DC Rocuronium Austin (Zemuron) 50 mg STK-MED ONCE .ROUTE ; Start 12/15/16 at 20:46 ; Stop 12/15/16 at 20:47; Status DC Ondansetron HCl 4 mg 4 mg PRN Q8HRS PRN IV NAUSEA/VOMITING; Start 12/15/16 at 20 :45; Stop 12/15/16 at 23:44; Status DC Sodium Chloride (Iv Sodium Chloride 0.9% 1000ml Bag) 1,000 ml @ 100 mls/hr Q10H IV Last administered on 12/16/16 06:45; Start 12/15/16 at 20:45; Stop 08/22 at 07:25; Status DC Acetaminophen (Tylenol) 650 mg PRN Q4HRS PRN PO FEVER Last administered on 12/16 16:43; Start 12/15/16 at 20:45; Stop 12/16/16 at 20:44; Status DC Etomidate (Amidate) 20 mg 1X ONCE IV Last administered on 12/15/16 19:51; Start 12/15/16 at 20:45; Stop 12/15/16 at 20:53; Status DC Succinylcholine Chloride 100 mg 100 mg 1X ONCE IV Last administered on 19:52; Start 12/15/16 at 20:45; Stop 12/15/16 at 20:53; Status DC Bacitracin/Sodium Chloride (Iv Sodium Chloride 0.9% 1000ml Bag) 1,000 ml @ 1, 000 mls/hr 1X PERIOP ONCE IRR Last administered on 12/15/16 22:05; Start at 21:00; Stop 12/15/16 at 21:59; Status DC Cellulose 1 each STK-MED ONCE .ROUTE Last administered on 12/15/16 22:05; Start 12/15/16 at 20:58; Stop 12/15/16 at 20:59; Status DC Bupivacaine HCl/ Epinephrine Bitart (Sensorcain-Mpf Epi 0.5%-[id number]) 30 ml STK -MED ONCE .ROUTE Last administered on 12/15/16 22:05; Start 12/15/16 at 20:58; Stop 12/15/16 at 20:59; Status DC Gelatin (Gelfoam Size 100) 1 each STK-MED ONCE .ROUTE Last administered on 12/15 22:05; Start 12/15/16 at 20:58; Stop 12/15/16 at 20:59; Status DC Thrombin 53166 unit 20,000 unit STK-MED ONCE TP Last administered on 12/15/16 22:05; Start 12/15/16 at 20:58; Stop 12/15/16 at 20:59; Status DC Propofol (Diprivan) 20 ml @ As Directed STK-MED ONCE IV ; Start 12/15/16 at 21:06 ; Stop 12/15/16 at 21:07; Status DC Desflurane 60 ml 60 ml STK-MED ONCE IH ; Start 12/15/16 at 21:49; Stop 12/15/16 at 21:50; Status DC Cefazolin Sodium/ Dextrose 50 ml @ As Directed STK-MED ONCE IV ; Start 12/15/16 at 21:52; Stop 12/15/16 at 21:53; Status DC Mannitol (Mannitol Iv Soln) 500 ml @ As Directed STK-MED ONCE IV ; Start at 21:53; Stop 12/15/16 at 21:54; Status DC Phenylephrine HCl 1 mg 1 mg STK-MED ONCE IV ; Start 12/15/16 at 21:55; Stop at 21:56; Status DC Levetiracetam/ Sodium Chloride (Keppra/Iv Sodium Chloride 0.9% 100ml) 100 ml @ 400 mls/hr 1X ONCE IV Last administered on 12/15/16 22:30; Start 12/15/16 at 22 :15; Stop 12/15/16 at 22:29; Status DC Ondansetron HCl (Zofran) 4 mg PRN Q6HRS PRN IV Nausea; Start 12/15/16 at 22:30; Stop 12/16/16 at 14:48; Status DC Fentanyl Citrate (Fentanyl 2ml Vial) 25 mcg PRN Q5MIN PRN IV MILD PAIN; Start 12/15/16 at 22:30; Stop 12/16/16 at 13:00; Status DC Fentanyl Citrate (Fentanyl 2ml Vial) 50 mcg PRN Q5MIN PRN IV MODERATE PAIN; Start 12/15/16 at 22:30; Stop 12/16/16 at 13:00; Status DC Morphine Sulfate 1 mg 1 mg PRN Q10MIN PRN IV SEVERE PAIN; Start 12/15/16 at 22: 30; Stop 12/16/16 at 13:08; Status DC Lactated Ringer's (Iv Lactated Ringers) 1,000 ml @ 0 mls/hr Q0M IV ; Start 12/15 at 22:30; Stop 12/16/16 at 13:08; Status DC Lidocaine HCl 2 ml 1X PRN PRN ID IV START; Start 12/15/16 at 22:30; Stop at 13:08; Status DC Hydromorphone HCl (Dilaudid) 0.5 mg PRN Q10MIN PRN IV SEV PAIN,Second choice; Start 12/15/16 at 22:30; Stop 12/16/16 at 13:01; Status DC Prochlorperazine Edisylate 5 mg 5 mg PACU PRN PRN IV NAUSEA; Start 12/15/16 at 22:30; Stop 12/16/16 at 13:08; Status DC Propofol 100 ml @ As Directed STK-MED ONCE IV ; Start 12/15/16 at 23:13; Stop at 23:14; Status DC Nicardipine HCl/ Sodium Chloride (Cardene/Iv Sodium Chloride 0.9% 250ml) 270 ml @ 27 mls/hr TITRATE PRN IV PER PROTOCOL; Start 12/15/16 at 23:30 Diphenhydramine HCl (Benadryl) 25 mg PRN Q6HRS PRN PO ITCHING; Start 12/15/16 at 23:30; Stop 12/19/16 at 12:54; Status DC Diphenhydramine HCl 25 mg 25 mg PRN Q6HRS PRN IV ITCHING; Start 12/15/16 at 23: 30 Levetiracetam/ Sodium Chloride (Keppra/Iv Sodium Chloride 0.9% 100ml) 105 ml @ 400 mls/hr Q12HR IV Last administered on 12/21/16t 08:09; Start 12/16/16 at 09: 00 Sodium Chloride (Normal Saline Flush) 3 ml QSHIFT PRN IV AFTER MEDS AND BLOOD DRAWS; Start 12/15/16 at 23:30 Dextrose 12.5 gm PRN Q15MIN PRN IV SEE COMMENTS; Start 12/15/16 at 23:30 Magnesium Hydroxide (Milk Of Magnesia) 2,400 mg PRN Q12HR PRN PO CONSTIPATION; Start 12/15/16 at 23:30 Ondansetron HCl 4 mg 4 mg PRN Q6HRS PRN IV NAUESA, 1ST CHOICE; Start 12/15/16 at 23:30 Cefazolin Sodium 1 gm/Sodium Chloride 50 ml @ 100 mls/hr Q8HRS IV Last administered on 12/16/16 21:05; Start 12/16/16 at 06:00; Stop 12/16/16 at 22:29 ; Status DC Potassium Chloride/Dextrose/ Sod Cl (KCl 20 Meq In D5W-1/2 NS) 1,000 ml @ 75 mls/hr [id number] IV Last administered on 12/18/16 18:18; Start 12/15/16 at 23:30 ; Stop 12/19/16 at 09:48; Status DC Fentanyl Citrate (Fentanyl 2ml Vial) 25 mcg PRN Q1HR PRN IV PAIN Last administered on 12/18/16 12:01; Start 12/15/16 at 23:30 Fentanyl Citrate (Fentanyl 2ml Vial) 50 mcg PRN Q1HR PRN IV PAIN Last administered on 12/20/16 04:12; Start 12/15/16 at 23:30 Info (Do NOT chart on this placeholder) 1 each 1X ONCE MC ; Start 12/16/16 at 04:00; Stop 12/16/16 at 04:01; Status UNV Pneumococcal Polyvalent Vaccine (Do NOT chart on this placeholder) 1 each 1X ONCE MC ; Start 12/16/16 at 04:00; Stop 12/16/16 at 04:01; Status UNV Influenza Virus Vaccine Quadrival (Fluarix Quad [id number] Syringe) 0.5 ml ONCE ONCE VAX IM Last administered on 12/17/16 08:49; Start 12/16/16 at 09:00; Stop 12/16/16 at 09:01; Status DC Pneumococcal Polyvalent Vaccine 0.5 ml 0.5 ml ONCE ONCE VAX IM Last administered on 12/17/16 08:47; Start 12/16/16 at 09:00; Stop 12/16/16 at 09:01 ; Status DC Propofol 100 ml @ 0 mls/hr CONT PRN IV SEE I/O RECORD Last administered on 12/21 02:53; Start 12/16/16 at 04:30 Propofol 100 ml @ 0 mls/hr CONT PRN IV SEE I/O RECORD; Start 12/16/16 at 00:00 ; Stop 12/16/16 at 03:00; Status Cancel Propofol 100 ml @ 0 mls/hr CONT PRN IV SEE I/O RECORD Last administered on 20:00; Start 12/16/16 at 00:00; Stop 12/16/16 at 09:04; Status DC Multivitamins/ Minerals/Thiamine HCl/Folic Acid/ Sodium Chloride (Infuvite Adult / Iv Sodium Chloride 0.9% 1000ml Bag) 1,011.2 ml @ 100 mls/ hr DAILY IV Last administered on 12/21/16 08:09; Start 12/16/16 at 10:00; Stop 12/22/16 at 09:59 Lorazepam (Ativan) 2 mg PRN Q1HR PRN IV For CIWA 8-14; Start 12/16/16 at 10:00 Lorazepam (Ativan) 4 mg PRN Q1HR PRN IV For CIWA 15 or greater; Start 12/16/16 at 10:00 Piperacillin Sod/ Tazobactam Sod (Zosyn Per Pharmacy) 1 each PRN DAILY PRN MC SEE COMMENTS; Start 12/16/16 at 10:30; Stop 12/18/16 at 11:54; Status DC Vancomycin HCl 1 each 1 each PRN DAILY PRN MC SEE COMMENTS Last administered on 12/18/16 04:00; Start 12/16/16 at 10:30; Stop 12/18/16 at 11:54; Status DC Vancomycin HCl 1.5 gm/Sodium Chloride 500 ml @ 250 mls/hr 1X ONCE IV Last administered on 12/16/16 14:08; Start 12/16/16 at 11:00; Stop 12/16/16 at 12:59 ; Status DC Piperacillin Sod/ Tazobactam Sod/ Sodium Chloride (Zosyn/Iv Sodium Chloride 0.9 % 100ml) 100 ml @ 200 mls/hr Q6HRS IV Last administered on 12/18/16 05:11; Start 12/16/16 at 12:00; Stop 12/18/16 at 11:54; Status DC Propofol 1000 mg 1,000 mg STK-MED ONCE IV ; Start 12/15/16 at 23:00; Stop at 13:28; Status DC Vancomycin HCl/ Sodium Chloride (Iv Sodium Chloride 0.9% 250ml) 250 ml @ 250 mls/hr Q12H IV Last administered on 12/18/16 02:00; Start 12/17/16 at 02:00; Stop 12/18/16 at 03:45; Status DC Vancomycin HCl 1 each 1X ONCE MC Last administered on 12/18/16 01:30; Start 12/18/16 at 01:30; Stop 12/18/16 at 11:54; Status DC Hydralazine HCl (Apresoline) 10 mg PRN Q4HRS PRN IVP ELEVATED BP, SEE COMMENTS Last administered on 12/21/16 05:26; Start 12/17/16 at 12:15 Potassium Chloride 40 meq 40 meq 1X ONCE PO ; Start 12/17/16 at 18:15; Stop 09/22 at 18:16; Status Cancel Potassium Chloride 50 ml @ 50 mls/hr Q1H IV Last administered on 12/18/16 00: 55; Start 12/17/16 at 19:00; Stop 12/17/16 at 20:59; Status DC Vancomycin HCl/ Sodium Chloride (Iv Sodium Chloride 0.9% 250ml) 250 ml @ 250 mls/hr Q8H IV Last administered on 12/18/16 03:54; Start 12/18/16 at 04:00; Stop 12/18/16 at 11:54; Status DC Vancomycin HCl 1 each 1X ONCE MC ; Start 12/19/16 at 03:30; Stop 12/19/16 at 03 :30; Status DC Budesonide (Pulmicort) 0.5 mg RTBID NEB Last administered on 12/21/16 08:33; Start 12/18/16 at 08:00 Vecuronium Austin 6 mg 6 mg 1X ONCE IV Last administered on 12/18/16 13:09; Start 12/18/16 at 13:00; Stop 12/18/16 at 13:01; Status DC Magnesium Sulfate/ Dextrose 50 ml @ 25 mls/hr 1X ONCE IV Last administered on 12/18/16 15:34; Start 12/18/16 at 15:00; Stop 12/18/16 at 16:59; Status DC Potassium Chloride 100 ml @ 100 mls/hr Q1H IV Last administered on 12/18/16 18:17; Start 12/18/16 at 15:00; Stop 12/18/16 at 18:59; Status DC Cefazolin Sodium 1 gm/Sodium Chloride 50 ml @ 100 mls/hr Q8HRS IV Last administered on 12/21/16 05:26; Start 12/19/16 at 10:00 Magnesium Sulfate/ Dextrose 50 ml @ 25 mls/hr 1X ONCE IV Last administered on 12/19/16 10:42; Start 12/19/16 at 10:30; Stop 12/19/16 at 12:29; Status DC Sodium Chloride/ Potassium Chloride/ Potassium Phosphate/ Magnesium Sulfate/ Calcium Gluconate/ Multivitamins/ Minerals/Chromium/ Copper/Manganese/ Seleni/Zn /Total Parenteral Nutrition/Amino Acids/Dextrose/ Fat Emulsion Intravenous ( Sodium Chloride/ Potassium Phospha... 87.0013 ml @ 3.625 mls/hr TPN CONT IV ; Start 12/19/16 at 22:00; Stop 12/19/16 at 22:00; Status Cancel Info 1 each 1 each PRN DAILY PRN MC SEE COMMENTS; Start 12/19/16 at 10:00; Stop 12/19/16 at 10:00; Status DC Potassium Chloride (KCl Premix 10meq) 100 ml @ 100 mls/hr Q1H IV Last administered on 12/19/16 20:52; Start 12/19/16 at 11:00; Stop 12/19/16 at 14:59 ; Status DC Acetaminophen (Tylenol) 650 mg PRN Q6HRS PRN PO MILD PAIN / TEMP; Start at 13:45; Status Cancel Acetaminophen 650 mg 650 mg PRN Q6HRS PRN PEG MILD PAIN / TEMP Last administered on 12/19/16 13:58; Start 12/19/16 at 14:00 Potassium Chloride/Sodium Chloride (Iv Sodium Chloride 0.45%) 1,015 ml @ 75 mls /hr [id number] IV Last administered on 12/19/16 21:24; Start 12/19/16 at 21:30; Stop 12/20/16 at 08:48; Status DC Furosemide (Lasix) 20 mg 1X ONCE IVP Last administered on 12/20/16 09:09; Start 12/20/16 at 09:30; Stop 12/20/16 at 09:31; Status DC Iohexol (Omnipaque 300 Mg/ml) 100 ml STK-MED ONCE .ROUTE ; Start 12/20/16 at 16: 17; Stop 12/20/16 at 16:18; Status DC Lidocaine HCl 20 ml 20 ml STK-MED ONCE .ROUTE ; Start 12/20/16 at 16:17; Stop at 16:18; Status DC Heparin Sodium/ Sodium Chloride 500 ml @ As Directed STK-MED ONCE .ROUTE ; Start 12/20/16 at 16:17; Stop 12/20/16 at 16:18; Status DC Heparin Sodium/ Sodium Chloride 1,000 unit 1X ONCE IART Last administered on 16:45; Start 12/20/16 at 16:45; Stop 12/20/16 at 16:46; Status DC Iohexol (Omnipaque 300 Mg/ml) 100 ml 1X ONCE IART Last administered on 16:45; Start 12/20/16 at 16:45; Stop 12/20/16 at 16:46; Status DC Lidocaine HCl 20 ml 1X ONCE IJ Last administered on 12/20/16 16:45; Start at 16:45; Stop 12/20/16 at 16:46; Status DC Furosemide (Lasix) 40 mg 1X ONCE IVP Last administered on 12/21/16 11:35; Start 12/21/16 at 10:15; Stop 12/21/16 at 10:17; Status DC Active Scripts Active Reported Benazepril Hcl 40 Mg Tablet 1 Tab PO DAILY Amlodipine Besylate 5 Mg Tablet 5 Mg PO DAILY Vitals/I & O Vital Sign - Last 24 Hours 12/20/16 12/20/16 12/20/16 12/20/16 13:15 13:30 14:00 15:00 Pulse 95 114 90 Resp 27 24 B/P 171/77 152/65 121/67 Pulse Ox 98 98 99 O2 Delivery Ventilator Ventilator Ventilator 12/20/16 12/20/16 12/20/16/14/17 15:56 16:00 16:00 17:00 Temp 99.6 99.6 Pulse 86 86 Resp 23 23 B/P 140/77 129/74 Pulse Ox 98 100 100 O2 Delivery Ventilator Mechanical Ventilator Ventilator 12/20/16 12/20/16 12/20/16 12/20/16 18:00 19:00 20:00 20:00 Temp 98.2 98.2 Pulse 74 94 72 Resp 16 23 18 B/P 133/77 142/88 144/79 Pulse Ox 100 100 100 O2 Delivery Ventilator Ventilator Ventilator Mechanical Ventilator 12/20/16 12/20/16 12/20/16 12/20/16 20:05 21:00 22:00 22:40 Pulse 103 74 Resp 21 18 B/P 141/86 161/99 149/85 Pulse Ox 100 100 100 O2 Delivery Ventilator Ventilator Ventilator 12/20/16 12/20/16 12/21/16 12/21/16 23:00 23:02 00:00 00:00 Temp 100.3 100.3 Pulse 92 80 Resp 21 18 B/P 151/87 126/71 Pulse Ox 100 100 100 O2 Delivery Ventilator Ventilator Mechanical Ventilator Ventilator 12/21/16 12/21/16 12/21/16 12/21/16 01:00 01:18 02:00 03:00 Pulse 86 69 79 Resp 20 18 18 B/P 151/89 136/81 145/80 Pulse Ox 100 100 100 100 O2 Delivery Ventilator Ventilator Ventilator Ventilator 12/21/16 12/21/16 12/21/16 12/21/16 04:00 04:00 05:00 05:00 Temp 99.6 99.6 Pulse 82 72 Resp 18 17 B/P 141/82 167/94 Pulse Ox 100 100 100 O2 Delivery Mechanical Ventilator Ventilator Ventilator Ventilator 12/21/16 12/21/16 12/21/16 12/21/16 05:26 06:00 07:00 08:00 Temp 100.3 100.3 Pulse 77 90 86 72 Resp 21 17 13 B/P 167/94 139/79 139/79 120/69 Pulse Ox 100 100 100 O2 Delivery Ventilator Ventilator Ventilator 12/21/16 12/21/16 12/21/16 12/21/16 08:00 08:15 09:00 10:00 Temp 98.9 98.9 Pulse 73 89 Resp 14 18 B/P 124/67 133/94 Pulse Ox 96 100 100 O2 Delivery Mechanical Ventilator Ventilator Ventilator Ventilator 12/21/16 11:00 Pulse 87 Resp 18 B/P 135/77 Pulse Ox 100 O2 Delivery Ventilator Intake and Output 12/20/16 12/20/16 12/21/16 15:00 23:00 07:00 Intake Total 125 ml 2850.2 ml 1094 ml Output Total 1600 ml 615 ml 319 ml Balance -1475 ml 2235.2 ml 775 ml LESLYE VENEGAS MD Dec 21, 2016 13:04
[2016-12-21] MEDS: ACETAMINOPHEN 650 MG/20.3 ML SOLUTION. PEG PRN (17:22)
[2016-12-21] MEDS ORDERED: ATROPINE 1% OPHTH SOLUTION 5ML BOTTLE. SL PRN (19:30)
[2016-12-21] MEDS: LORAZEPAM 2 MG/ML VIAL IV PRN (23:30)
[2016-12-22] VITALS (24 sets, daily range): BP systolic 124–172; BP diastolic 67–107
[2016-12-22] MEDS: ACETAMINOPHEN 650 MG/20.3 ML SOLUTION. PEG PRN ×4 (00:15→21:44)
[2016-12-22] MEDS: LORAZEPAM 2 MG/ML VIAL IV PRN (01:36)
[2016-12-22] MEDS: CEFAZOLIN SODIUM 1 GM in IV NORMAL SALINE 50ML 50 ML IV SCH (05:34)
--- NOTE | 2016-12-22 07:18 | RAD ---
Portable chest, 12/22/2016: History: Intubation Comparison is made to yesterday's study. The ET tube tip lies well above the rico. An NG tube extends into the stomach. A right PICC extends into the inferior aspect of the superior vena cava. The heart remains mildly enlarged. The pulmonary vascularity is prominent. There is a persistent left basilar opacity suggesting infiltrate and probable pleural fluid. No right-sided pleural fluid is seen. No new abnormality is detected. IMPRESSION: No significant change since yesterday's exam.
[2016-12-22] MEDS: BUDESONIDE 0.5 MG/2 ML NEBU NEB SCH ×2 (07:43→19:44)
[2016-12-22] MEDS: LEVETIRACETAM 500 MG in IV NORMAL SALINE 100ML 100 ML IV SCH ×2 (08:31→21:44)
[2016-12-22] MEDS: MVI, ADULT NO.4 WITH VIT K 10 ML, THIAMINE 100 MG, FOLIC ACID 1 MG in IV NORMAL SALINE ... IV SCH ×4 (08:31)
--- NOTE | 2016-12-22 09:37 | PDOC ---
PULMONARY PROGRESS NOTES Subjective PT OFF SEDATION AWAKE AT TIMES RN REPORTS PT FOLLOW SOME COMMANDS Vitals Vital Signs Date Time Temp Pulse Resp B/P Pulse Ox O2 Delivery O2 Flow Rate FiO2 12/22/16 08:43 98 Ventilator 12/22/16 06:00 86 19 144/76 12/22/16 04:00 100.6 100.6 HEENT: Other (s/p crani, perrl, orally intubated, nose clear. ) Lungs: Clear Cardiovascular: S1, S2 Abdomen: Soft, Non-tender, Other (no mass) Extremities: No Edema Skin: Warm Labs Laboratory Tests Test 12/21/16 04:50 12/21/16 08:30 White Blood Count 8.1x10^3/uL (4.0-11.0) Red Blood Count 3.30x10^6/uL (4.30-5.70) Hemoglobin 11.0g/dL (13.0-17.5) Hematocrit 31.6% (39.0-53.0) Mean Corpuscular Volume 96fL (79-100) Mean Corpuscular Hemoglobin 33pg (25-35) Mean Corpuscular Hemoglobin Concent 35g/dL (31-37) Red Cell Distribution Width 12.4% (11.5-14.5) Platelet Count 253x10^3/uL (140-400) Neutrophils (%) (Auto) 68% (31-73) Lymphocytes (%) (Auto) 14% (24-48) Monocytes (%) (Auto) 17% (0-9) Eosinophils (%) (Auto) 1% (0-3) Basophils (%) (Auto) 1% (0-3) Neutrophils # (Auto) 5.5x10^3uL (1.8-7.7) Lymphocytes # (Auto) 1.1x10^3/uL (1.0-4.8) Monocytes # (Auto) 1.4x10^3/uL (0.0-1.1) Eosinophils # (Auto) 0.0x10^3/uL (0.0-0.7) Basophils # (Auto) 0.0x10^3/uL (0.0-0.2) Sodium Level 137mmol/L (136-145) Potassium Level 3.6mmol/L (3.5-5.1) Chloride Level 104mmol/L (98-107) Carbon Dioxide Level 24mmol/L (21-32) Anion Gap 9 (6-14) Blood Urea Nitrogen 17mg/dL (8-26) Creatinine 0.5mg/dL (0.7-1.3) Estimated GFR (Cockcroft-Gault) 168.5 Glucose Level 118mg/dL (70-99) Calcium Level 8.6mg/dL (8.5-10.1) O2 Saturation 89% (92-99) Arterial Blood pH 7.48 (7.35-7.45) Arterial Blood pCO2 at Patient Temp 33mmHg (35-46) Arterial Blood pO2 at Patient Temp 57mmHg (65-108) Arterial Blood HCO3 24mmol/L (21-28) Arterial Blood Base Excess 1mmol/L (-3-3) FiO2 40 Medications Active Scripts Medications Dose Route/Sig Days Date Category Benazepril Hcl 40 Mg Tablet 1 Tab PO DAILY 12/16/16 Reported Amlodipine Besylate 5 Mg Tablet 5 Mg PO DAILY 12/16/16 Reported Comments CXR MILD CONGESTION Impression . IMPRESSION: 1. Acute respiratory failure secondary ICH 2. 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 3. Underlying chronic obstructive pulmonary disease, unknown FEV1, smoked for 40 years. 4. Underlying alcoholism. 5. EDEMA 6. Fever may be central 7. Nutrition per tube feeding 8. S/P ICV filter Plan . SPOKE WITH WILL MAINTAIN OFF SEDATION, PROCEED WITH [facility] [place] BEFORE HE IS ABLE TO BE EXTUBATED PRN VERSED LASIX DAILY FOR 5 DAYS S/P IVC CONTINUE THE SAME FOR NOW ROQUE HUDDLESTON MD Dec 22, 2016 09:37
[2016-12-22] MEDS ORDERED: PIP/TAZO PER PHARMACY MC PRN (10:00)
[2016-12-22 11:00] LABS: CALCIUM 8.2 mg/dL (8.5-10.1); CREATININE 0.5 mg/dL (0.7-1.3); GFR 168.5
[2016-12-22] MEDS: PIPERACILLIN/TAZOBACTAM 4.5 GM in IV NORMAL SALINE 100ML 100 ML IV SCH ×3 (11:29→23:59)
[2016-12-22] MEDS: hydrALAZINE 20 MG/ML VIAL. IVP PRN ×2 (11:29→23:49)
--- NOTE | 2016-12-22 14:29 | PDOC ---
PROGRESS NOTES Chief Complaint Chief Complaint cc: ams A/P Right frontal craniotomy with evacuation of intracerebral hematoma and placement of external ventricular drain in the right lateral ventricle.POD 5 Alcohol abuse Respiratory failure on Mechanical ventilation Elective Encephalopathy due to above Leucocytosis better Hyponatremia labs pending fever 2/2 intracranial hemarrhage likely, need to rule out asp PNA Plan On mechanical ventilation, off sedation, SBT ok, but not waking up totally CIWA protocol for alcohol withdrawal precaution add zosyn, ID consult [facility] precautions BP goal < SBP 130 Replace IV potassium and Magnesium GI prophylaxis NO dvt prophylaxis Tube feeds, dc ivf, lasix 40mg x1 family at bedside, all questions answered try wean daily off sedation IVC filter for PE prevention as per neurosx on 12/[address] repeat 12/22/16. waiting for neurosx for further recom History of Present Illness History of Present Illness intubated. failed wean trial yesterday with tachycardia and HTN 2 days ago, better now, but not waking up enough fever, secretion Vitals Vitals Vital Signs Date Time Temp Pulse Resp B/P Pulse Ox O2 Delivery O2 Flow Rate FiO2 12/22/16 13:00 93 25 141/67 97 Ventilator 12/22/16 12:00 99.5 99.5 Physical Exam General: Other (sedated on vent, no distress) Heart: Normal S1, Normal S2 Lungs: Clear Abdomen: Normal bowel sounds, Soft Extremities: No clubbing, No cyanosis Skin: Other (dressings intact, dry, ICP 10) Labs LABS Laboratory Tests Test 12/22/16 10:30 Sodium Level 132mmol/L (136-145) Potassium Level 3.0mmol/L (3.5-5.1) Chloride Level 99mmol/L (98-107) Carbon Dioxide Level 28mmol/L (21-32) Anion Gap 5 (6-14) Blood Urea Nitrogen 15mg/dL (8-26) Creatinine 0.5mg/dL (0.7-1.3) Estimated GFR (Cockcroft-Gault) 168.5 Glucose Level 134mg/dL (70-99) Calcium Level 8.2mg/dL (8.5-10.1) Review of Systems Review of Systems no fever, chills, Assessment and Plan Assessmemt and Plan Problems Medical Problems: (1) Intraparenchymal hematoma of brain Status: Acute Problems: Comment Review of Relevant I have reviewed the following items jose alfredo (where applicable) has been applied. Labs Laboratory Tests Test 12/21/16 04:50 12/21/16 08:30 12/22/16 10:30 White Blood Count 8.1x10^3/uL (4.0-11.0) Red Blood Count 3.30x10^6/uL (4.30-5.70) Hemoglobin 11.0g/dL (13.0-17.5) Hematocrit 31.6% (39.0-53.0) Mean Corpuscular Volume 96fL (79-100) Mean Corpuscular Hemoglobin 33pg (25-35) Mean Corpuscular Hemoglobin Concent 35g/dL (31-37) Red Cell Distribution Width 12.4% (11.5-14.5) Platelet Count 253x10^3/uL (140-400) Neutrophils (%) (Auto) 68% (31-73) Lymphocytes (%) (Auto) 14% (24-48) Monocytes (%) (Auto) 17% (0-9) Eosinophils (%) (Auto) 1% (0-3) Basophils (%) (Auto) 1% (0-3) Neutrophils # (Auto) 5.5x10^3uL (1.8-7.7) Lymphocytes # (Auto) 1.1x10^3/uL (1.0-4.8) Monocytes # (Auto) 1.4x10^3/uL (0.0-1.1) Eosinophils # (Auto) 0.0x10^3/uL (0.0-0.7) Basophils # (Auto) 0.0x10^3/uL (0.0-0.2) Sodium Level 137mmol/L (136-145) 132mmol/L (136-145) Potassium Level 3.6mmol/L (3.5-5.1) 3.0mmol/L (3.5-5.1) Chloride Level 104mmol/L (98-107) 99mmol/L (98-107) Carbon Dioxide Level 24mmol/L (21-32) 28mmol/L (21-32) Anion Gap 9 (6-14) 5 (6-14) Blood Urea Nitrogen 17mg/dL (8-26) 15mg/dL (8-26) Creatinine 0.5mg/dL (0.7-1.3) 0.5mg/dL (0.7-1.3) Estimated GFR (Cockcroft-Gault) 168.5 168.5 Glucose Level 118mg/dL (70-99) 134mg/dL (70-99) Calcium Level 8.6mg/dL (8.5-10.1) 8.2mg/dL (8.5-10.1) O2 Saturation 89% (92-99) Arterial Blood pH 7.48 (7.35-7.45) Arterial Blood pCO2 at Patient Temp 33mmHg (35-46) Arterial Blood pO2 at Patient Temp 57mmHg (65-108) Arterial Blood HCO3 24mmol/L (21-28) Arterial Blood Base Excess 1mmol/L (-3-3) FiO2 40 Laboratory Tests Test 12/22/16 10:30 Sodium Level 132mmol/L (136-145) Potassium Level 3.0mmol/L (3.5-5.1) Chloride Level 99mmol/L (98-107) Carbon Dioxide Level 28mmol/L (21-32) Anion Gap 5 (6-14) Blood Urea Nitrogen 15mg/dL (8-26) Creatinine 0.5mg/dL (0.7-1.3) Estimated GFR (Cockcroft-Gault) 168.5 Glucose Level 134mg/dL (70-99) Calcium Level 8.2mg/dL (8.5-10.1) Medications Current Medications Multivitamins/ Minerals/Folic Acid/Thiamine HCl/ Sodium Chloride (Infuvite Adult / Iv Sodium Chloride 0.9% 1000ml Bag) 1,011.2 ml @ 1,000 mls/ hr 1X ONCE IV Last administered on 12/15/16t 18:53; Start 12/15/16 at 18:45; Stop 12/15/16 at 19: 45; Status DC Ondansetron HCl 4 mg 4 mg 1X ONCE IV ; Start 12/15/16 at 18:45; Stop 12/15/16 at 18:46; Status DC Propofol 0 ml @ As Directed STK-MED ONCE IV ; Start 12/15/16 at 19:57; Stop at 19:58; Status DC Propofol (Diprivan) 50 ml @ As Directed STK-MED ONCE IV ; Start 12/15/16 at 19:57 ; Stop 12/15/16 at 19:58; Status DC Lidocaine HCl 100 mg STK-MED ONCE .ROUTE ; Start 12/15/16 at 20:45; Stop 12/15/16 at 20:46; Status DC Fentanyl Citrate (Fentanyl 2ml Vial) 100 mcg STK-MED ONCE .ROUTE ; Start at 20:46; Stop 12/15/16 at 20:47; Status DC Rocuronium [place] (Zemuron) 50 mg STK-MED ONCE .ROUTE ; Start 12/15/16 at 20:46 ; Stop 12/15/16 at 20:47; Status DC Ondansetron HCl 4 mg 4 mg PRN Q8HRS PRN IV NAUSEA/VOMITING; Start 12/15/16 at 20 :45; Stop 12/15/16 at 23:44; Status DC Sodium Chloride (Iv Sodium Chloride 0.9% 1000ml Bag) 1,000 ml @ 100 mls/hr Q10H IV Last administered on 12/16/16 06:45; Start 12/15/16 at 20:45; Stop 08/22 at 07:25; Status DC Acetaminophen (Tylenol) 650 mg PRN Q4HRS PRN PO FEVER Last administered on 12/16 16:43; Start 12/15/16 at 20:45; Stop 12/16/16 at 20:44; Status DC Etomidate (Amidate) 20 mg 1X ONCE IV Last administered on 12/15/16 19:51; Start 12/15/16 at 20:45; Stop 12/15/16 at 20:53; Status DC Succinylcholine Chloride 100 mg 100 mg 1X ONCE IV Last administered on 19:52; Start 12/15/16 at 20:45; Stop 12/15/16 at 20:53; Status DC Bacitracin/Sodium Chloride (Iv Sodium Chloride 0.9% 1000ml Bag) 1,000 ml @ 1, 000 mls/hr 1X PERIOP ONCE IRR Last administered on 12/15/16 22:05; Start at 21:00; Stop 12/15/16 at 21:59; Status DC Cellulose 1 each STK-MED ONCE .ROUTE Last administered on 12/15/16 22:05; Start 12/15/16 at 20:58; Stop 12/15/16 at 20:59; Status DC Bupivacaine HCl/ Epinephrine Bitart (Sensorcain-Mpf Epi 0.5%-1:[id number]) 30 ml STK -MED ONCE .ROUTE Last administered on 12/15/16 22:05; Start 12/15/16 at 20:58; Stop 12/15/16 at 20:59; Status DC Gelatin (Gelfoam Size 100) 1 each STK-MED ONCE .ROUTE Last administered on 12/15 22:05; Start 12/15/16 at 20:58; Stop 12/15/16 at 20:59; Status DC Thrombin 40061 unit 20,000 unit STK-MED ONCE TP Last administered on 12/15/16 22:05; Start 12/15/16 at 20:58; Stop 12/15/16 at 20:59; Status DC Propofol (Diprivan) 20 ml @ As Directed STK-MED ONCE IV ; Start 12/15/16 at 21:06 ; Stop 12/15/16 at 21:07; Status DC Desflurane 60 ml 60 ml STK-MED ONCE IH ; Start 12/15/16 at 21:49; Stop 12/15/16 at 21:50; Status DC Cefazolin Sodium/ Dextrose 50 ml @ As Directed STK-MED ONCE IV ; Start 12/15/16 at 21:52; Stop 12/15/16 at 21:53; Status DC Mannitol (Mannitol Iv Soln) 500 ml @ As Directed STK-MED ONCE IV ; Start at 21:53; Stop 12/15/16 at 21:54; Status DC Phenylephrine HCl 1 mg 1 mg STK-MED ONCE IV ; Start 12/15/16 at 21:55; Stop at 21:56; Status DC Levetiracetam/ Sodium Chloride (Keppra/Iv Sodium Chloride 0.9% 100ml) 100 ml @ 400 mls/hr 1X ONCE IV Last administered on 12/15/16 22:30; Start 12/15/16 at 22 :15; Stop 12/15/16 at 22:29; Status DC Ondansetron HCl (Zofran) 4 mg PRN Q6HRS PRN IV Nausea; Start 12/15/16 at 22:30; Stop 12/16/16 at 14:48; Status DC Fentanyl Citrate (Fentanyl 2ml Vial) 25 mcg PRN Q5MIN PRN IV MILD PAIN; Start 12/15/16 at 22:30; Stop 12/16/16 at 13:00; Status DC Fentanyl Citrate (Fentanyl 2ml Vial) 50 mcg PRN Q5MIN PRN IV MODERATE PAIN; Start 12/15/16 at 22:30; Stop 12/16/16 at 13:00; Status DC Morphine Sulfate 1 mg 1 mg PRN Q10MIN PRN IV SEVERE PAIN; Start 12/15/16 at 22: 30; Stop 12/16/16 at 13:08; Status DC Lactated Ringer's (Iv Lactated Ringers) 1,000 ml @ 0 mls/hr Q0M IV ; Start 12/15 at 22:30; Stop 12/16/16 at 13:08; Status DC Lidocaine HCl 2 ml 1X PRN PRN ID IV START; Start 12/15/16 at 22:30; Stop at 13:08; Status DC Hydromorphone HCl (Dilaudid) 0.5 mg PRN Q10MIN PRN IV SEV PAIN,Second choice; Start 12/15/16 at 22:30; Stop 12/16/16 at 13:01; Status DC Prochlorperazine Edisylate 5 mg 5 mg PACU PRN PRN IV NAUSEA; Start 12/15/16 at 22:30; Stop 12/16/16 at 13:08; Status DC Propofol 100 ml @ As Directed STK-MED ONCE IV ; Start 12/15/16 at 23:13; Stop at 23:14; Status DC Nicardipine HCl/ Sodium Chloride (Cardene/Iv Sodium Chloride 0.9% 250ml) 270 ml @ 27 mls/hr TITRATE PRN IV PER PROTOCOL; Start 12/15/16 at 23:30 Diphenhydramine HCl (Benadryl) 25 mg PRN Q6HRS PRN PO ITCHING; Start 12/15/16 at 23:30; Stop 12/19/16 at 12:54; Status DC Diphenhydramine HCl 25 mg 25 mg PRN Q6HRS PRN IV ITCHING; Start 12/15/16 at 23: 30 Levetiracetam/ Sodium Chloride (Keppra/Iv Sodium Chloride 0.9% 100ml) 105 ml @ 400 mls/hr Q12HR IV Last administered on 12/22/16 08:31; Start 12/16/16 at 09: 00 Sodium Chloride (Normal Saline Flush) 3 ml QSHIFT PRN IV AFTER MEDS AND BLOOD DRAWS; Start 12/15/16 at 23:30 Dextrose 12.5 gm PRN Q15MIN PRN IV SEE COMMENTS; Start 12/15/16 at 23:30 Magnesium Hydroxide (Milk Of Magnesia) 2,400 mg PRN Q12HR PRN PO CONSTIPATION; Start 12/15/16 at 23:30 Ondansetron HCl 4 mg 4 mg PRN Q6HRS PRN IV NAUESA, 1ST CHOICE; Start 12/15/16 at 23:30 Cefazolin Sodium 1 gm/Sodium Chloride 50 ml @ 100 mls/hr Q8HRS IV Last administered on 12/16/16 21:05; Start 12/16/16 at 06:00; Stop 12/16/16 at 22:29 ; Status DC Potassium Chloride/Dextrose/ Sod Cl (KCl 20 Meq In D5W-1/2 NS) 1,000 ml @ 75 mls/hr [id number] IV Last administered on 12/18/16 18:18; Start 12/15/16 at 23:30 ; Stop 12/19/16 at 09:48; Status DC Fentanyl Citrate (Fentanyl 2ml Vial) 25 mcg PRN Q1HR PRN IV PAIN Last administered on 12/18/16 12:01; Start 12/15/16 at 23:30 Fentanyl Citrate (Fentanyl 2ml Vial) 50 mcg PRN Q1HR PRN IV PAIN Last administered on 12/20/16 04:12; Start 12/15/16 at 23:30 Info (Do NOT chart on this placeholder) 1 each 1X ONCE MC ; Start 12/16/16 at 04:00; Stop 12/16/16 at 04:01; Status UNV Pneumococcal Polyvalent Vaccine (Do NOT chart on this placeholder) 1 each 1X ONCE MC ; Start 12/16/16 at 04:00; Stop 12/16/16 at 04:01; Status UNV Influenza Virus Vaccine Quadrival (Fluarix Quad [id number] Syringe) 0.5 ml ONCE ONCE VAX IM Last administered on 12/17/16 08:49; Start 12/16/16 at 09:00; Stop 12/16/16 at 09:01; Status DC Pneumococcal Polyvalent Vaccine 0.5 ml 0.5 ml ONCE ONCE VAX IM Last administered on 12/17/16 08:47; Start 12/16/16 at 09:00; Stop 12/16/16 at 09:01 ; Status DC Propofol 100 ml @ 0 mls/hr CONT PRN IV SEE I/O RECORD Last administered on 12/21 02:53; Start 12/16/16 at 04:30 Propofol 100 ml @ 0 mls/hr CONT PRN IV SEE I/O RECORD; Start 12/16/16 at 00:00 ; Stop 12/16/16 at 03:00; Status Cancel Propofol 100 ml @ 0 mls/hr CONT PRN IV SEE I/O RECORD Last administered on 20:00; Start 12/16/16 at 00:00; Stop 12/16/16 at 09:04; Status DC Multivitamins/ Minerals/Thiamine HCl/Folic Acid/ Sodium Chloride (Infuvite Adult / Iv Sodium Chloride 0.9% 1000ml Bag) 1,011.2 ml @ 100 mls/ hr DAILY IV Last administered on 12/22/16 08:31; Start 12/16/16 at 10:00; Stop 12/22/16 at 09:59 ; Status DC Lorazepam (Ativan) 2 mg PRN Q1HR PRN IV For CIWA 8-14 Last administered on 12/21 21:57; Start 12/16/16 at 10:00 Lorazepam (Ativan) 4 mg PRN Q1HR PRN IV For CIWA 15 or greater Last administered on 12/22/16 01:36; Start 12/16/16 at 10:00 Piperacillin Sod/ Tazobactam Sod (Zosyn Per Pharmacy) 1 each PRN DAILY PRN MC SEE COMMENTS; Start 12/16/16 at 10:30; Stop 12/18/16 at 11:54; Status DC Vancomycin HCl 1 each 1 each PRN DAILY PRN MC SEE COMMENTS Last administered on 12/18/16 04:00; Start 12/16/16 at 10:30; Stop 12/18/16 at 11:54; Status DC Vancomycin HCl 1.5 gm/Sodium Chloride 500 ml @ 250 mls/hr 1X ONCE IV Last administered on 12/16/16 14:08; Start 12/16/16 at 11:00; Stop 12/16/16 at 12:59 ; Status DC Piperacillin Sod/ Tazobactam Sod/ Sodium Chloride (Zosyn/Iv Sodium Chloride 0.9 % 100ml) 100 ml @ 200 mls/hr Q6HRS IV Last administered on 12/18/16 05:11; Start 12/16/16 at 12:00; Stop 12/18/16 at 11:54; Status DC Propofol 1000 mg 1,000 mg STK-MED ONCE IV ; Start 12/15/16 at 23:00; Stop at 13:28; Status DC Vancomycin HCl/ Sodium Chloride (Iv Sodium Chloride 0.9% 250ml) 250 ml @ 250 mls/hr Q12H IV Last administered on 12/18/16 02:00; Start 12/17/16 at 02:00; Stop 12/18/16 at 03:45; Status DC Vancomycin HCl 1 each 1X ONCE MC Last administered on 12/18/16 01:30; Start 12/18/16 at 01:30; Stop 12/18/16 at 11:54; Status DC Hydralazine HCl (Apresoline) 10 mg PRN Q4HRS PRN IVP ELEVATED BP, SEE COMMENTS Last administered on 12/22/16 11:29; Start 12/17/16 at 12:15 Potassium Chloride 40 meq 40 meq 1X ONCE PO ; Start 12/17/16 at 18:15; Stop 09/22 at 18:16; Status Cancel Potassium Chloride 50 ml @ 50 mls/hr Q1H IV Last administered on 12/18/16 00: 55; Start 12/17/16 at 19:00; Stop 12/17/16 at 20:59; Status DC Vancomycin HCl/ Sodium Chloride (Iv Sodium Chloride 0.9% 250ml) 250 ml @ 250 mls/hr Q8H IV Last administered on 12/18/16 03:54; Start 12/18/16 at 04:00; Stop 12/18/16 at 11:54; Status DC Vancomycin HCl 1 each 1X ONCE MC ; Start 12/19/16 at 03:30; Stop 12/19/16 at 03 :30; Status DC Budesonide (Pulmicort) 0.5 mg RTBID NEB Last administered on 12/21/16 19:41; Start 12/18/16 at 08:00 Vecuronium [place] 6 mg 6 mg 1X ONCE IV Last administered on 12/18/16 13:09; Start 12/18/16 at 13:00; Stop 12/18/16 at 13:01; Status DC Magnesium Sulfate/ Dextrose 50 ml @ 25 mls/hr 1X ONCE IV Last administered on 12/18/16 15:34; Start 12/18/16 at 15:00; Stop 12/18/16 at 16:59; Status DC Potassium Chloride 100 ml @ 100 mls/hr Q1H IV Last administered on 12/18/16 18:17; Start 12/18/16 at 15:00; Stop 12/18/16 at 18:59; Status DC Cefazolin Sodium 1 gm/Sodium Chloride 50 ml @ 100 mls/hr Q8HRS IV Last administered on 12/22/16 05:34; Start 12/19/16 at 10:00; Stop 12/22/16 at 10:01 ; Status DC Magnesium Sulfate/ Dextrose 50 ml @ 25 mls/hr 1X ONCE IV Last administered on 12/19/16 10:42; Start 12/19/16 at 10:30; Stop 12/19/16 at 12:29; Status DC Sodium Chloride/ Potassium Chloride/ Potassium Phosphate/ Magnesium Sulfate/ Calcium Gluconate/ Multivitamins/ Minerals/Chromium/ Copper/Manganese/ Seleni/Zn /Total Parenteral Nutrition/Amino Acids/Dextrose/ Fat Emulsion Intravenous ( Sodium Chloride/ Potassium Phospha... 87.0013 ml @ 3.625 mls/hr TPN CONT IV ; Start 12/19/16 at 22:00; Stop 12/19/16 at 22:00; Status Cancel Info 1 each 1 each PRN DAILY PRN MC SEE COMMENTS; Start 12/19/16 at 10:00; Stop 12/19/16 at 10:00; Status DC Potassium Chloride (KCl Premix 10meq) 100 ml @ 100 mls/hr Q1H IV Last administered on 12/19/16 20:52; Start 12/19/16 at 11:00; Stop 12/19/16 at 14:59 ; Status DC Acetaminophen (Tylenol) 650 mg PRN Q6HRS PRN PO MILD PAIN / TEMP; Start at 13:45; Status Cancel Acetaminophen 650 mg 650 mg PRN Q6HRS PRN PEG MILD PAIN / TEMP Last administered on 12/22/16 08:31; Start 12/19/16 at 14:00 Potassium Chloride/Sodium Chloride (Iv Sodium Chloride 0.45%) 1,015 ml @ 75 mls /hr [id number] IV Last administered on 12/19/16 21:24; Start 12/19/16 at 21:30; Stop 12/20/16 at 08:48; Status DC Furosemide (Lasix) 20 mg 1X ONCE IVP Last administered on 12/20/16 09:09; Start 12/20/16 at 09:30; Stop 12/20/16 at 09:31; Status DC Iohexol (Omnipaque 300 Mg/ml) 100 ml STK-MED ONCE .ROUTE ; Start 12/20/16 at 16: 17; Stop 12/20/16 at 16:18; Status DC Lidocaine HCl 20 ml 20 ml STK-MED ONCE .ROUTE ; Start 12/20/16 at 16:17; Stop at 16:18; Status DC Heparin Sodium/ Sodium Chloride 500 ml @ As Directed STK-MED ONCE .ROUTE ; Start 12/20/16 at 16:17; Stop 12/20/16 at 16:18; Status DC Heparin Sodium/ Sodium Chloride 1,000 unit 1X ONCE IART Last administered on 16:45; Start 12/20/16 at 16:45; Stop 12/20/16 at 16:46; Status DC Iohexol (Omnipaque 300 Mg/ml) 100 ml 1X ONCE IART Last administered on 16:45; Start 12/20/16 at 16:45; Stop 12/20/16 at 16:46; Status DC Lidocaine HCl 20 ml 1X ONCE IJ Last administered on 12/20/16 16:45; Start at 16:45; Stop 12/20/16 at 16:46; Status DC Furosemide (Lasix) 40 mg 1X ONCE IVP Last administered on 12/21/16 11:35; Start 12/21/16 at 10:15; Stop 12/21/16 at 10:17; Status DC Scopolamine (Transderm-Scop) 1 patch Q3DAYS TD ; Start 12/24/16 at 09:00; Status UNV Atropine Sulfate 1 drop 1 drop PRN Q2HR PRN SL SECRETIONS Last administered on 12/21/16 21:57; Start 12/21/16 at 19:30 Piperacillin Sod/ Tazobactam Sod/ Sodium Chloride (Zosyn/Iv Sodium Chloride 0.9 % 100ml) 100 ml @ 200 mls/hr Q6HRS IV Last administered on 12/22/16 11:29; Start 12/22/16 at 11:00 Piperacillin Sod/ Tazobactam Sod (Zosyn Per Pharmacy) 1 each PRN DAILY PRN MC SEE COMMENTS; Start 12/22/16 at 10:00; Stop 12/22/16 at 10:12; Status DC Active Scripts Active Reported Benazepril Hcl 40 Mg Tablet 1 Tab PO DAILY Amlodipine Besylate 5 Mg Tablet 5 Mg PO DAILY Vitals/I & O Vital Sign - Last 24 Hours 12/21/16 12/21/16 12/21/16 12/21/16 15:00 15:41 16:00 16:00 Temp 101.3 101.3 Pulse 92 94 Resp 23 23 B/P 159/84 171/88 Pulse Ox 100 100 100 O2 Delivery Ventilator Ventilator Ventilator Mechanical Ventilator 12/21/16 12/21/16 12/21/16 12/21/16 17:00 17:20 17:30 17:43 Pulse 94 94 72 Resp 25 21 B/P 173/91 174/89 152/79 Pulse Ox 100 100 100 O2 Delivery Ventilator Ventilator Ventilator 12/21/16 12/21/16 12/21/16 12/21/16 18:00 19:00 19:43 20:00 Pulse 79 111 Resp 20 26 B/P 114/51 136/63 Pulse Ox 100 100 100 O2 Delivery Ventilator Ventilator Ventilator Mechanical Ventilator 12/21/16 12/21/16 12/21/16 12/21/16 20:00 21:00 21:00 22:00 Temp 99.5 99.5 Pulse 86 96 98 Resp 24 25 25 B/P 132/62 129/57 156/87 Pulse Ox 100 100 100 100 O2 Delivery Ventilator Ventilator Ventilator Ventilator 12/21/16 12/21/16 12/22/16 12/22/16 23:00 23:15 00:00 00:00 Temp 101.2 101.2 Pulse 87 78 Resp 22 18 B/P 143/82 127/72 Pulse Ox 96 100 98 O2 Delivery Ventilator Ventilator Mechanical Ventilator Ventilator 12/22/16 12/22/16 12/22/16 12/22/16 01:00 01:05 02:00 02:43 Pulse 76 84 Resp 17 22 B/P 127/72 128/69 Pulse Ox 98 99 97 98 O2 Delivery Ventilator Ventilator Ventilator Ventilator 12/22/16 12/22/16 12/22/16 12/22/16 03:00 04:00 04:00 05:00 Temp 100.6 100.6 Pulse 81 91 80 Resp 18 22 20 B/P 130/73 156/79 159/92 Pulse Ox 100 100 100 O2 Delivery Ventilator Mechanical Ventilator Ventilator Ventilator 12/22/16 12/22/16 12/22/16 12/22/16 05:10 06:00 07:00 07:41 Pulse 86 89 Resp 19 23 B/P 144/76 161/85 Pulse Ox 100 100 99 97 O2 Delivery Ventilator Ventilator Ventilator Ventilator 12/22/16 12/22/16 12/22/16 12/22/16 08:00 08:00 08:43 09:00 Pulse 91 78 Resp 25 23 B/P 158/97 148/73 Pulse Ox 98 98 98 O2 Delivery Mechanical Ventilator Ventilator Ventilator Ventilator 12/22/16 12/22/16 12/22/16 12/22/16 10:00 11:00 11:29 11:29 Pulse 81 98 102 Resp 21 26 B/P 163/80 172/107 172/107 Pulse Ox 100 97 98 O2 Delivery Ventilator Ventilator Ventilator 12/22/16 12/22/16 12/22/16 12:00 12:55 13:00 Temp 99.5 99.5 Pulse 90 93 Resp 25 25 B/P 138/71 141/67 Pulse Ox 98 98 97 O2 Delivery Ventilator Ventilator Ventilator Intake and Output 12/21/16 12/21/16 12/22/16 15:00 23:00 07:00 Intake Total 255 ml 255 ml 3889 ml Output Total 2675 ml 225 ml 390 ml Balance -2420 ml 30 ml 3499 ml LESLYE VENEGAS MD Dec 22, 2016 14:29
--- NOTE | 2016-12-22 15:14 | PDOC ---
PROGRESS NOTES Subjective Subjective sedation off RN reports that he intermittently follows commands family at bedside Objective Objective Vital Signs Date Time Temp Pulse Resp B/P Pulse Ox O2 Delivery O2 Flow Rate FiO2 12/22/16 13:00 93 25 141/67 97 Ventilator 12/22/16 12:00 99.5 99.5 Intake and Output 12/22/16 07:00 Intake Total 4399 ml Output Total 3290 ml Balance 1109 ml IV Total 1699 ml Tube Feeding 1919 ml Other 781 ml Output Urine Total 3290 ml # Bowel Movements 1 Physical Exam General: Other (no distress) HEENT: Other (PERRL) Skin: Other (drain D/C'D without difficulty, staple placed, incision healing well with slava intact) Assessment Assessment Problems Medical Problems: (1) Intraparenchymal hematoma of brain Status: Acute Plan Plan of Care CT head reviewed- stable wean from vent as tolerated d/w family Comment Review of Relevant I have reviewed the following items jose alfredo (where applicable) has been applied. Labs Laboratory Tests Test 12/21/16 04:50 12/21/16 08:30 12/22/16 10:30 White Blood Count 8.1x10^3/uL (4.0-11.0) Red Blood Count 3.30x10^6/uL (4.30-5.70) Hemoglobin 11.0g/dL (13.0-17.5) Hematocrit 31.6% (39.0-53.0) Mean Corpuscular Volume 96fL (79-100) Mean Corpuscular Hemoglobin 33pg (25-35) Mean Corpuscular Hemoglobin Concent 35g/dL (31-37) Red Cell Distribution Width 12.4% (11.5-14.5) Platelet Count 253x10^3/uL (140-400) Neutrophils (%) (Auto) 68% (31-73) Lymphocytes (%) (Auto) 14% (24-48) Monocytes (%) (Auto) 17% (0-9) Eosinophils (%) (Auto) 1% (0-3) Basophils (%) (Auto) 1% (0-3) Neutrophils # (Auto) 5.5x10^3uL (1.8-7.7) Lymphocytes # (Auto) 1.1x10^3/uL (1.0-4.8) Monocytes # (Auto) 1.4x10^3/uL (0.0-1.1) Eosinophils # (Auto) 0.0x10^3/uL (0.0-0.7) Basophils # (Auto) 0.0x10^3/uL (0.0-0.2) Sodium Level 137mmol/L (136-145) 132mmol/L (136-145) Potassium Level 3.6mmol/L (3.5-5.1) 3.0mmol/L (3.5-5.1) Chloride Level 104mmol/L (98-107) 99mmol/L (98-107) Carbon Dioxide Level 24mmol/L (21-32) 28mmol/L (21-32) Anion Gap 9 (6-14) 5 (6-14) Blood Urea Nitrogen 17mg/dL (8-26) 15mg/dL (8-26) Creatinine 0.5mg/dL (0.7-1.3) 0.5mg/dL (0.7-1.3) Estimated GFR (Cockcroft-Gault) 168.5 168.5 Glucose Level 118mg/dL (70-99) 134mg/dL (70-99) Calcium Level 8.6mg/dL (8.5-10.1) 8.2mg/dL (8.5-10.1) O2 Saturation 89% (92-99) Arterial Blood pH 7.48 (7.35-7.45) Arterial Blood pCO2 at Patient Temp 33mmHg (35-46) Arterial Blood pO2 at Patient Temp 57mmHg (65-108) Arterial Blood HCO3 24mmol/L (21-28) Arterial Blood Base Excess 1mmol/L (-3-3) FiO2 40 Laboratory Tests Test 12/22/16 10:30 Sodium Level 132mmol/L (136-145) Potassium Level 3.0mmol/L (3.5-5.1) Chloride Level 99mmol/L (98-107) Carbon Dioxide Level 28mmol/L (21-32) Anion Gap 5 (6-14) Blood Urea Nitrogen 15mg/dL (8-26) Creatinine 0.5mg/dL (0.7-1.3) Estimated GFR (Cockcroft-Gault) 168.5 Glucose Level 134mg/dL (70-99) Calcium Level 8.2mg/dL (8.5-10.1) Medications Current Medications Multivitamins/ Minerals/Folic Acid/Thiamine HCl/ Sodium Chloride (Infuvite Adult / Iv Sodium Chloride 0.9% 1000ml Bag) 1,011.2 ml @ 1,000 mls/ hr 1X ONCE IV Last administered on 12/15/16 18:53; Start 12/15/16 at 18:45; Stop 12/15/16 at 19: 45; Status DC Ondansetron HCl 4 mg 4 mg 1X ONCE IV ; Start 12/15/16 at 18:45; Stop 12/15/16 at 18:46; Status DC Propofol 0 ml @ As Directed STK-MED ONCE IV ; Start 12/15/16 at 19:57; Stop at 19:58; Status DC Propofol (Diprivan) 50 ml @ As Directed STK-MED ONCE IV ; Start 12/15/16 at 19:57 ; Stop 12/15/16 at 19:58; Status DC Lidocaine HCl 100 mg STK-MED ONCE .ROUTE ; Start 12/15/16 at 20:45; Stop 12/15/16 at 20:46; Status DC Fentanyl Citrate (Fentanyl 2ml Vial) 100 mcg STK-MED ONCE .ROUTE ; Start at 20:46; Stop 12/15/16 at 20:47; Status DC Rocuronium [place] (Zemuron) 50 mg STK-MED ONCE .ROUTE ; Start 12/15/16 at 20:46 ; Stop 12/15/16 at 20:47; Status DC Ondansetron HCl 4 mg 4 mg PRN Q8HRS PRN IV NAUSEA/VOMITING; Start 12/15/16 at 20 :45; Stop 12/15/16 at 23:44; Status DC Sodium Chloride (Iv Sodium Chloride 0.9% 1000ml Bag) 1,000 ml @ 100 mls/hr Q10H IV Last administered on 12/16/16 06:45; Start 12/15/16 at 20:45; Stop 08/22 at 07:25; Status DC Acetaminophen (Tylenol) 650 mg PRN Q4HRS PRN PO FEVER Last administered on 12/16 16:43; Start 12/15/16 at 20:45; Stop 12/16/16 at 20:44; Status DC Etomidate (Amidate) 20 mg 1X ONCE IV Last administered on 12/15/16 19:51; Start 12/15/16 at 20:45; Stop 12/15/16 at 20:53; Status DC Succinylcholine Chloride 100 mg 100 mg 1X ONCE IV Last administered on 19:52; Start 12/15/16 at 20:45; Stop 12/15/16 at 20:53; Status DC Bacitracin/Sodium Chloride (Iv Sodium Chloride 0.9% 1000ml Bag) 1,000 ml @ 1, 000 mls/hr 1X PERIOP ONCE IRR Last administered on 12/15/16 22:05; Start at 21:00; Stop 12/15/16 at 21:59; Status DC Cellulose 1 each STK-MED ONCE .ROUTE Last administered on 12/15/16 22:05; Start 12/15/16 at 20:58; Stop 12/15/16 at 20:59; Status DC Bupivacaine HCl/ Epinephrine Bitart (Sensorcain-Mpf Epi 0.5%-1:[id number]) 30 ml STK -MED ONCE .ROUTE Last administered on 12/15/16 22:05; Start 12/15/16 at 20:58; Stop 12/15/16 at 20:59; Status DC Gelatin (Gelfoam Size 100) 1 each STK-MED ONCE .ROUTE Last administered on 12/15 22:05; Start 12/15/16 at 20:58; Stop 12/15/16 at 20:59; Status DC Thrombin 00807 unit 20,000 unit STK-MED ONCE TP Last administered on 12/15/16 22:05; Start 12/15/16 at 20:58; Stop 12/15/16 at 20:59; Status DC Propofol (Diprivan) 20 ml @ As Directed STK-MED ONCE IV ; Start 12/15/16 at 21:06 ; Stop 12/15/16 at 21:07; Status DC Desflurane 60 ml 60 ml STK-MED ONCE IH ; Start 12/15/16 at 21:49; Stop 12/15/16 at 21:50; Status DC Cefazolin Sodium/ Dextrose 50 ml @ As Directed STK-MED ONCE IV ; Start 12/15/16 at 21:52; Stop 12/15/16 at 21:53; Status DC Mannitol (Mannitol Iv Soln) 500 ml @ As Directed STK-MED ONCE IV ; Start at 21:53; Stop 12/15/16 at 21:54; Status DC Phenylephrine HCl 1 mg 1 mg STK-MED ONCE IV ; Start 12/15/16 at 21:55; Stop at 21:56; Status DC Levetiracetam/ Sodium Chloride (Keppra/Iv Sodium Chloride 0.9% 100ml) 100 ml @ 400 mls/hr 1X ONCE IV Last administered on 12/15/16t 22:30; Start 12/15/16 at 22 :15; Stop 12/15/16 at 22:29; Status DC Ondansetron HCl (Zofran) 4 mg PRN Q6HRS PRN IV Nausea; Start 12/15/16 at 22:30; Stop 12/16/16 at 14:48; Status DC Fentanyl Citrate (Fentanyl 2ml Vial) 25 mcg PRN Q5MIN PRN IV MILD PAIN; Start 12/15/16 at 22:30; Stop 12/16/16 at 13:00; Status DC Fentanyl Citrate (Fentanyl 2ml Vial) 50 mcg PRN Q5MIN PRN IV MODERATE PAIN; Start 12/15/16 at 22:30; Stop 12/16/16 at 13:00; Status DC Morphine Sulfate 1 mg 1 mg PRN Q10MIN PRN IV SEVERE PAIN; Start 12/15/16 at 22: 30; Stop 12/16/16 at 13:08; Status DC Lactated Ringer's (Iv Lactated Ringers) 1,000 ml @ 0 mls/hr Q0M IV ; Start 12/15 at 22:30; Stop 12/16/16 at 13:08; Status DC Lidocaine HCl 2 ml 1X PRN PRN ID IV START; Start 12/15/16 at 22:30; Stop at 13:08; Status DC Hydromorphone HCl (Dilaudid) 0.5 mg PRN Q10MIN PRN IV SEV PAIN,Second choice; Start 12/15/16 at 22:30; Stop 12/16/16 at 13:01; Status DC Prochlorperazine Edisylate 5 mg 5 mg PACU PRN PRN IV NAUSEA; Start 12/15/16 at 22:30; Stop 12/16/16 at 13:08; Status DC Propofol 100 ml @ As Directed STK-MED ONCE IV ; Start 12/15/16 at 23:13; Stop at 23:14; Status DC Nicardipine HCl/ Sodium Chloride (Cardene/Iv Sodium Chloride 0.9% 250ml) 270 ml @ 27 mls/hr TITRATE PRN IV PER PROTOCOL; Start 12/15/16 at 23:30 Diphenhydramine HCl (Benadryl) 25 mg PRN Q6HRS PRN PO ITCHING; Start 12/15/16 at 23:30; Stop 12/19/16 at 12:54; Status DC Diphenhydramine HCl 25 mg 25 mg PRN Q6HRS PRN IV ITCHING; Start 12/15/16 at 23: 30 Levetiracetam/ Sodium Chloride (Keppra/Iv Sodium Chloride 0.9% 100ml) 105 ml @ 400 mls/hr Q12HR IV Last administered on 12/22/16 08:31; Start 12/16/16 at 09: 00 Sodium Chloride (Normal Saline Flush) 3 ml QSHIFT PRN IV AFTER MEDS AND BLOOD DRAWS; Start 12/15/16 at 23:30 Dextrose 12.5 gm PRN Q15MIN PRN IV SEE COMMENTS; Start 12/15/16 at 23:30 Magnesium Hydroxide (Milk Of Magnesia) 2,400 mg PRN Q12HR PRN PO CONSTIPATION; Start 12/15/16 at 23:30 Ondansetron HCl 4 mg 4 mg PRN Q6HRS PRN IV NAUESA, 1ST CHOICE; Start 12/15/16 at 23:30 Cefazolin Sodium 1 gm/Sodium Chloride 50 ml @ 100 mls/hr Q8HRS IV Last administered on 12/16/16 21:05; Start 12/16/16 at 06:00; Stop 12/16/16 at 22:29 ; Status DC Potassium Chloride/Dextrose/ Sod Cl (KCl 20 Meq In D5W-1/2 NS) 1,000 ml @ 75 mls/hr [id number] IV Last administered on 12/18/16 18:18; Start 12/15/16 at 23:30 ; Stop 12/19/16 at 09:48; Status DC Fentanyl Citrate (Fentanyl 2ml Vial) 25 mcg PRN Q1HR PRN IV PAIN Last administered on 12/18/16 12:01; Start 12/15/16 at 23:30 Fentanyl Citrate (Fentanyl 2ml Vial) 50 mcg PRN Q1HR PRN IV PAIN Last administered on 12/20/16 04:12; Start 12/15/16 at 23:30 Info (Do NOT chart on this placeholder) 1 each 1X ONCE MC ; Start 12/16/16 at 04:00; Stop 12/16/16 at 04:01; Status UNV Pneumococcal Polyvalent Vaccine (Do NOT chart on this placeholder) 1 each 1X ONCE MC ; Start 12/16/16 at 04:00; Stop 12/16/16 at 04:01; Status UNV Influenza Virus Vaccine Quadrival (Fluarix Quad 9755-2702 Syringe) 0.5 ml ONCE ONCE VAX IM Last administered on 12/17/16 08:49; Start 12/16/16 at 09:00; Stop 12/16/16 at 09:01; Status DC Pneumococcal Polyvalent Vaccine 0.5 ml 0.5 ml ONCE ONCE VAX IM Last administered on 12/17/16 08:47; Start 12/16/16 at 09:00; Stop 12/16/16 at 09:01 ; Status DC Propofol 100 ml @ 0 mls/hr CONT PRN IV SEE I/O RECORD Last administered on 12/21 02:53; Start 12/16/16 at 04:30 Propofol 100 ml @ 0 mls/hr CONT PRN IV SEE I/O RECORD; Start 12/16/16 at 00:00 ; Stop 12/16/16 at 03:00; Status Cancel Propofol 100 ml @ 0 mls/hr CONT PRN IV SEE I/O RECORD Last administered on 20:00; Start 12/16/16 at 00:00; Stop 12/16/16 at 09:04; Status DC Multivitamins/ Minerals/Thiamine HCl/Folic Acid/ Sodium Chloride (Infuvite Adult / Iv Sodium Chloride 0.9% 1000ml Bag) 1,011.2 ml @ 100 mls/ hr DAILY IV Last administered on 12/22/16 08:31; Start 12/16/16 at 10:00; Stop 12/22/16 at 09:59 ; Status DC Lorazepam (Ativan) 2 mg PRN Q1HR PRN IV For CIWA 8-14 Last administered on 12/21 21:57; Start 12/16/16 at 10:00 Lorazepam (Ativan) 4 mg PRN Q1HR PRN IV For CIWA 15 or greater Last administered on 12/22/16 01:36; Start 12/16/16 at 10:00 Piperacillin Sod/ Tazobactam Sod (Zosyn Per Pharmacy) 1 each PRN DAILY PRN MC SEE COMMENTS; Start 12/16/16 at 10:30; Stop 12/18/16 at 11:54; Status DC Vancomycin HCl 1 each 1 each PRN DAILY PRN MC SEE COMMENTS Last administered on 12/18/16 04:00; Start 12/16/16 at 10:30; Stop 12/18/16 at 11:54; Status DC Vancomycin HCl 1.5 gm/Sodium Chloride 500 ml @ 250 mls/hr 1X ONCE IV Last administered on 12/16/16 14:08; Start 12/16/16 at 11:00; Stop 12/16/16 at 12:59 ; Status DC Piperacillin Sod/ Tazobactam Sod/ Sodium Chloride (Zosyn/Iv Sodium Chloride 0.9 % 100ml) 100 ml @ 200 mls/hr Q6HRS IV Last administered on 12/18/16 05:11; Start 12/16/16 at 12:00; Stop 12/18/16 at 11:54; Status DC Propofol 1000 mg 1,000 mg STK-MED ONCE IV ; Start 12/15/16 at 23:00; Stop at 13:28; Status DC Vancomycin HCl/ Sodium Chloride (Iv Sodium Chloride 0.9% 250ml) 250 ml @ 250 mls/hr Q12H IV Last administered on 12/18/16 02:00; Start 12/17/16 at 02:00; Stop 12/18/16 at 03:45; Status DC Vancomycin HCl 1 each 1X ONCE MC Last administered on 12/18/16 01:30; Start 12/18/16 at 01:30; Stop 12/18/16 at 11:54; Status DC Hydralazine HCl (Apresoline) 10 mg PRN Q4HRS PRN IVP ELEVATED BP, SEE COMMENTS Last administered on 12/22/16 11:29; Start 12/17/16 at 12:15 Potassium Chloride 40 meq 40 meq 1X ONCE PO ; Start 12/17/16 at 18:15; Stop 09/22 at 18:16; Status Cancel Potassium Chloride 50 ml @ 50 mls/hr Q1H IV Last administered on 12/18/16 00: 55; Start 12/17/16 at 19:00; Stop 12/17/16 at 20:59; Status DC Vancomycin HCl/ Sodium Chloride (Iv Sodium Chloride 0.9% 250ml) 250 ml @ 250 mls/hr Q8H IV Last administered on 12/18/16 03:54; Start 12/18/16 at 04:00; Stop 12/18/16 at 11:54; Status DC Vancomycin HCl 1 each 1X ONCE MC ; Start 12/19/16 at 03:30; Stop 12/19/16 at 03 :30; Status DC Budesonide (Pulmicort) 0.5 mg RTBID NEB Last administered on 12/21/16 19:41; Start 12/18/16 at 08:00 Vecuronium [place] 6 mg 6 mg 1X ONCE IV Last administered on 12/18/16 13:09; Start 12/18/16 at 13:00; Stop 12/18/16 at 13:01; Status DC Magnesium Sulfate/ Dextrose 50 ml @ 25 mls/hr 1X ONCE IV Last administered on 12/18/16 15:34; Start 12/18/16 at 15:00; Stop 12/18/16 at 16:59; Status DC Potassium Chloride 100 ml @ 100 mls/hr Q1H IV Last administered on 12/18/16 18:17; Start 12/18/16 at 15:00; Stop 12/18/16 at 18:59; Status DC Cefazolin Sodium 1 gm/Sodium Chloride 50 ml @ 100 mls/hr Q8HRS IV Last administered on 12/22/16 05:34; Start 12/19/16 at 10:00; Stop 12/22/16 at 10:01 ; Status DC Magnesium Sulfate/ Dextrose 50 ml @ 25 mls/hr 1X ONCE IV Last administered on 12/19/16 10:42; Start 12/19/16 at 10:30; Stop 12/19/16 at 12:29; Status DC Sodium Chloride/ Potassium Chloride/ Potassium Phosphate/ Magnesium Sulfate/ Calcium Gluconate/ Multivitamins/ Minerals/Chromium/ Copper/Manganese/ Seleni/Zn /Total Parenteral Nutrition/Amino Acids/Dextrose/ Fat Emulsion Intravenous ( Sodium Chloride/ Potassium Phospha... 87.0013 ml @ 3.625 mls/hr TPN CONT IV ; Start 12/19/16 at 22:00; Stop 12/19/16 at 22:00; Status Cancel Info 1 each 1 each PRN DAILY PRN MC SEE COMMENTS; Start 12/19/16 at 10:00; Stop 12/19/16 at 10:00; Status DC Potassium Chloride (KCl Premix 10meq) 100 ml @ 100 mls/hr Q1H IV Last administered on 12/19/16 20:52; Start 12/19/16 at 11:00; Stop 12/19/16 at 14:59 ; Status DC Acetaminophen (Tylenol) 650 mg PRN Q6HRS PRN PO MILD PAIN / TEMP; Start at 13:45; Status Cancel Acetaminophen 650 mg 650 mg PRN Q6HRS PRN PEG MILD PAIN / TEMP Last administered on 12/22/16 08:31; Start 12/19/16 at 14:00 Potassium Chloride/Sodium Chloride (Iv Sodium Chloride 0.45%) 1,015 ml @ 75 mls /hr [id number] IV Last administered on 12/19/16 21:24; Start 12/19/16 at 21:30; Stop 12/20/16 at 08:48; Status DC Furosemide (Lasix) 20 mg 1X ONCE IVP Last administered on 12/20/16 09:09; Start 12/20/16 at 09:30; Stop 12/20/16 at 09:31; Status DC Iohexol (Omnipaque 300 Mg/ml) 100 ml STK-MED ONCE .ROUTE ; Start 12/20/16 at 16: 17; Stop 12/20/16 at 16:18; Status DC Lidocaine HCl 20 ml 20 ml STK-MED ONCE .ROUTE ; Start 12/20/16 at 16:17; Stop at 16:18; Status DC Heparin Sodium/ Sodium Chloride 500 ml @ As Directed STK-MED ONCE .ROUTE ; Start 12/20/16 at 16:17; Stop 12/20/16 at 16:18; Status DC Heparin Sodium/ Sodium Chloride 1,000 unit 1X ONCE IART Last administered on 16:45; Start 12/20/16 at 16:45; Stop 12/20/16 at 16:46; Status DC Iohexol (Omnipaque 300 Mg/ml) 100 ml 1X ONCE IART Last administered on 16:45; Start 12/20/16 at 16:45; Stop 12/20/16 at 16:46; Status DC Lidocaine HCl 20 ml 1X ONCE IJ Last administered on 12/20/16 16:45; Start at 16:45; Stop 12/20/16 at 16:46; Status DC Furosemide (Lasix) 40 mg 1X ONCE IVP Last administered on 12/21/16 11:35; Start 12/21/16 at 10:15; Stop 12/21/16 at 10:17; Status DC Scopolamine (Transderm-Scop) 1 patch Q3DAYS TD ; Start 12/24/16 at 09:00; Status UNV Atropine Sulfate 1 drop 1 drop PRN Q2HR PRN SL SECRETIONS Last administered on 12/21/16 21:57; Start 12/21/16 at 19:30 Piperacillin Sod/ Tazobactam Sod/ Sodium Chloride (Zosyn/Iv Sodium Chloride 0.9 % 100ml) 100 ml @ 200 mls/hr Q6HRS IV Last administered on 12/22/16 11:29; Start 12/22/16 at 11:00 Piperacillin Sod/ Tazobactam Sod 1 each 1 each PRN DAILY PRN MC SEE COMMENTS; Start 12/22/16 at 10:00; Stop 12/22/16 at 10:12; Status DC Potassium Chloride (KCl Premix 20meq) 50 ml @ 50 mls/hr Q1H IV ; Start 12/22/16 at 15:00; Stop 12/22/16 at 16:59 Furosemide (Lasix) 20 mg DAILY IVP ; Start 12/22/16 at 15:30; Stop 12/29/16 at 15:29 Active Scripts Active Reported Benazepril Hcl 40 Mg Tablet 1 Tab PO DAILY Amlodipine Besylate 5 Mg Tablet 5 Mg PO DAILY Vitals/I & O Vital Sign - Last 24 Hours 12/21/16 12/21/16 12/21/16 12/21/16 15:41 16:00 16:00 17:00 Temp 101.3 101.3 Pulse 94 94 Resp 23 25 B/P 171/88 173/91 Pulse Ox 100 100 100 O2 Delivery Ventilator Ventilator Mechanical Ventilator Ventilator 12/21/16 12/21/16 12/21/16 12/21/16 17:20 17:30 17:43 18:00 Pulse 94 72 79 Resp 21 20 B/P 174/89 152/79 114/51 Pulse Ox 100 100 100 O2 Delivery Ventilator Ventilator Ventilator 12/21/16 12/21/16 12/21/16 12/21/16 19:00 19:43 20:00 20:00 Temp 99.5 99.5 Pulse 111 86 Resp 26 24 B/P 136/63 132/62 Pulse Ox 100 100 100 O2 Delivery Ventilator Ventilator Mechanical Ventilator Ventilator 12/21/16 12/21/16 12/21/16 12/21/16 21:00 21:00 22:00 23:00 Pulse 96 98 87 Resp 25 25 22 B/P 129/57 156/87 143/82 Pulse Ox 100 100 100 96 O2 Delivery Ventilator Ventilator Ventilator Ventilator 12/21/16 12/22/16 12/22/16 12/22/16 23:15 00:00 00:00 01:00 Temp 101.2 101.2 Pulse 78 76 Resp 18 17 B/P 127/72 127/72 Pulse Ox 100 98 98 O2 Delivery Ventilator Mechanical Ventilator Ventilator Ventilator 12/22/16 12/22/16 12/22/16 12/22/16 01:05 02:00 02:43 03:00 Pulse 84 81 Resp 22 18 B/P 128/69 130/73 Pulse Ox 99 97 98 100 O2 Delivery Ventilator Ventilator Ventilator Ventilator 12/22/16 12/22/16 12/22/16 12/22/16 04:00 04:00 05:00 05:10 Temp 100.6 100.6 Pulse 91 80 Resp 22 20 B/P 156/79 159/92 Pulse Ox 100 100 100 O2 Delivery Mechanical Ventilator Ventilator Ventilator Ventilator 2/1612/22/16 12/22/16 12/22/16 06:00 07:00 07:41 08:00 Pulse 86 89 Resp 19 23 B/P 144/76 161/85 Pulse Ox 100 99 97 O2 Delivery Ventilator Ventilator Ventilator Mechanical Ventilator 12/22/16 12/22/16 12/22/16 12/22/16 08:00 08:43 09:00 10:00 Pulse 91 78 81 Resp 25 23 21 B/P 158/97 148/73 163/80 Pulse Ox 98 98 98 100 O2 Delivery Ventilator Ventilator Ventilator Ventilator 12/22/16 12/22/16 12/22/16 12/22/16 11:00 11:29 11:29 12:00 Temp 99.5 99.5 Pulse 98 102 90 Resp 26 25 B/P 172/107 172/107 138/71 Pulse Ox 97 98 98 O2 Delivery Ventilator Ventilator Ventilator 12/22/16 12/22/16 12:55 13:00 Pulse 93 Resp 25 B/P 141/67 Pulse Ox 98 97 O2 Delivery Ventilator Ventilator Intake and Output 12/21/16 12/21/16 12/22/16 15:00 23:00 07:00 Intake Total 255 ml 255 ml 3889 ml Output Total 2675 ml 225 ml 390 ml Balance -2420 ml 30 ml 3499 ml NALLELY MILLAN MD Dec 22, 2016 15:13
[2016-12-22] MEDS: POTASSIUM CHLORIDE 20MEQ 50 ML IV SCH ×2 (15:25→17:22)
[2016-12-22] MEDS: FUROSEMIDE 20 MG/2 ML VIAL IVP SCH (15:28)
--- NOTE | 2016-12-22 17:02 | RAD ---
CT of the head without contrast, 12/22/2016: History: Follow-up intracranial hemorrhage Comparison is made to a study from 12/18/2016. Again noted is a craniotomy defect in the right lateral frontal region. There is a small underlying elliptical area of predominantly increased density which is unchanged. A low density subdural fluid collection also persists centered in the right frontal temporal region, unchanged. A shunt tube remains in place on the right extending into the region of the third ventricle at the midline. Pneumocephalus has nearly completely resolved. There is mild dilatation of left lateral ventricle, similar to that seen on the previous study. The right lateral ventricle remains mildly effaced by residual hemorrhage and edema in the right basal ganglia region, also unchanged. The amount of intraventricular hemorrhage has decreased. A small hematoma along the right tentorium appears to be unchanged. There is a mild unchanged right to left shift of the midline structures with effacement of the overlying cortical sulci on the right. There is mucosal thickening and fluid in multiple paranasal sinuses. IMPRESSION: Stable posttraumatic and postsurgical findings as described above. There is a mild residual mass effect on the right. No new hemorrhage is evident. PQRS Compliance Statement: One or more of the following individualized dose reduction techniques were utilized for this examination: 1. Automated exposure control 2. Adjustment of the mA and/or kV according to patient size 3. Use of iterative reconstruction technique
[2016-12-23] VITALS (24 sets, daily range): BP systolic 107–156; BP diastolic 58–98
[2016-12-23] MEDS: FENTANYL PF 100 MCG/2 ML VIAL. IV PRN (00:12)
[2016-12-23 05:18] LABS: BASO # 0.1 x10^3/uL (0.0-0.2); BASO % 0 % (0-3); EOS % 0 % (0-3); HEMATOCRIT 32.4 % (39.0-53.0); HEMOGLOBIN 10.9 g/dL (13.0-17.5); LYMPH # 1.2 x10^3/uL (1.0-4.8); LYMPH % 7 % (24-48); MEAN CORPUSCULAR HEMOGLOBIN 32 pg (25-35); MEAN CORPUSCULAR HGB CONC 34 g/dL (31-37); MEAN CORPUSCULAR VOLUME 96 fL (79-100); MONO % 16 % (0-9); NEUT % 77 % (31-73); PLATELET COUNT 330 x10^3/uL (140-400); RED BLOOD COUNT 3.38 x10^6/uL (4.30-5.70); RED CELL DISTRIBUTION WIDTH 12.7 % (11.5-14.5); WHITE BLOOD COUNT 18.3 x10^3/uL (4.0-11.0)
[2016-12-23] MEDS: PIPERACILLIN/TAZOBACTAM 4.5 GM in IV NORMAL SALINE 100ML 100 ML IV SCH ×4 (05:30→23:30)
[2016-12-23 05:35] LABS: CALCIUM 8.6 mg/dL (8.5-10.1); CREATININE 0.5 mg/dL (0.7-1.3); GFR 168.5; MAGNESIUM 1.8 mg/dL (1.8-2.4); POTASSIUM 3.9 mmol/L (3.5-5.1)
[2016-12-23 06:52] LABS: PLT ESTIMATE ADEQUATE (ADEQUATE); TOXIC GRANULATION PRESENT
[2016-12-23 06:53] LABS: TOXIC VACUOLATION PRESENT
[2016-12-23] MEDS: BUDESONIDE 0.5 MG/2 ML NEBU NEB SCH ×2 (07:41→19:37)
[2016-12-23] MEDS: LEVETIRACETAM 500 MG in IV NORMAL SALINE 100ML 100 ML IV SCH ×2 (08:02→20:54)
[2016-12-23] MEDS: FUROSEMIDE 20 MG/2 ML VIAL IVP SCH (08:06)
--- NOTE | 2016-12-23 08:13 | PDOC ---
Infectious Disease Note Vital Sign Vital Signs Vital Signs Date Time Temp Pulse Resp B/P Pulse Ox O2 Delivery O2 Flow Rate FiO2 12/23/16 07:41 100 Ventilator 12/23/16 06:00 101 23 141/80 12/23/16 04:00 100.9 100.9 Labs Lab Laboratory Tests Test 12/22/16 10:30 12/23/16 05:00 Sodium Level 132mmol/L (136-145) 132mmol/L (136-145) Potassium Level 3.0mmol/L (3.5-5.1) 3.9mmol/L (3.5-5.1) Chloride Level 99mmol/L (98-107) 98mmol/L (98-107) Carbon Dioxide Level 28mmol/L (21-32) 25mmol/L (21-32) Anion Gap 5 (6-14) 9 (6-14) Blood Urea Nitrogen 15mg/dL (8-26) 17mg/dL (8-26) Creatinine 0.5mg/dL (0.7-1.3) 0.5mg/dL (0.7-1.3) Estimated GFR (Cockcroft-Gault) 168.5 168.5 Glucose Level 134mg/dL (70-99) 137mg/dL (70-99) Calcium Level 8.2mg/dL (8.5-10.1) 8.6mg/dL (8.5-10.1) White Blood Count 18.3x10^3/uL (4.0-11.0) Red Blood Count 3.38x10^6/uL (4.30-5.70) Hemoglobin 10.9g/dL (13.0-17.5) Hematocrit 32.4% (39.0-53.0) Mean Corpuscular Volume 96fL (79-100) Mean Corpuscular Hemoglobin 32pg (25-35) Mean Corpuscular Hemoglobin Concent 34g/dL (31-37) Red Cell Distribution Width 12.7% (11.5-14.5) Platelet Count 330x10^3/uL (140-400) Neutrophils (%) (Auto) 77% (31-73) Lymphocytes (%) (Auto) 7% (24-48) Monocytes (%) (Auto) 16% (0-9) Eosinophils (%) (Auto) 0% (0-3) Basophils (%) (Auto) 0% (0-3) Neutrophils # (Auto) 14.1x10^3uL (1.8-7.7) Lymphocytes # (Auto) 1.2x10^3/uL (1.0-4.8) Monocytes # (Auto) 2.9x10^3/uL (0.0-1.1) Eosinophils # (Auto) 0.0x10^3/uL (0.0-0.7) Basophils # (Auto) 0.1x10^3/uL (0.0-0.2) Segmented Neutrophils % 75% (35-66) Band Neutrophils % 6% (0-9) Lymphocytes % 8% (24-48) Monocytes % 11% (0-10) Toxic Granulation Present Toxic Vacuolation Present Platelet Estimate Adequate (ADEQUATE) Magnesium Level 1.8mg/dL (1.8-2.4) Objective Assessment Fever ICH Respiratory failure ETOH COPD Plan Plan of Care BC Procalcitonin vanc and zosyn ct chest abd and pelvis d/w in detail CHASITY BARCENAS MD Dec 23, 2016 08:13
[2016-12-23] MEDS: ACETAMINOPHEN 650 MG/20.3 ML SOLUTION. PEG PRN ×3 (08:18→23:29)
[2016-12-23] MEDS: VANCOMYCIN PER PHARMACY MC PRN (08:18)
[2016-12-23] MEDS ORDERED: VANCOMYCIN 1.75 GM in IV NORMAL SALINE 500ML BAG 500 ML IV ONE (08:30)
--- NOTE | 2016-12-23 08:47 | RAD ---
Portable chest, 12/23/2016: History: Intubation Comparison is made to yesterday's study. The ET tube remains in place in satisfactory position. An NG tube extends into the stomach. A right PICC extends into the superior vena cava. The heart size is unchanged. The pulmonary vascularity is at the upper limits of normal. The left basilar opacity has improved with better definition of the left hemidiaphragm. No right lung infiltrate is seen. No new abnormality is detected. IMPRESSION: 1. The various tubes and catheters remain in place in satisfactory positions. 2. Improving left basilar opacity.
[2016-12-23 08:50] LABS: HCO3 ABG 24 mmol/L (21-28); PCO2 ABG 30 mmHg (35-46); PH ABG 7.52 (7.35-7.45); PO2 ABG 78 mmHg (65-108); SAT O2 ABG 96 % (92-99)
[2016-12-23 08:57] LABS: FIO2 ABG 40
[2016-12-23] MEDS ORDERED: IOHEXOL 240 MG/ML 50ML VIAL. PO ONE (09:00)
[2016-12-23] MEDS ORDERED: IOHEXOL 300 MG/ML 75 ML VIAL IV ONE (09:00)
--- NOTE | 2016-12-23 12:00 | CONS ---
DATE OF CONSULTATION: 12/23/2016 REQUESTING PHYSICIAN: Dr. Power. REASON FOR CONSULTATION: Fever. HISTORY OF PRESENT ILLNESS: This is a 61-year-old gentleman who was found down at home by when she came back from work. The patient evidently has a significant alcohol problem, although his alcohol level was not high when he was brought in. The patient was found to have intracranial hemorrhage. The patient underwent right frontal craniotomy with evacuation of the intracerebral hematoma and has had external ventricular drain, which now has been removed. There was 16 mm midline shift. The patient started running fever, hence consultation. The patient is arousable, does follow command with moving the right lower extremity and right upper extremity. There is not much movement on the left side. The patient has not had any nausea, vomiting or diarrhea. The patient is still intubated and not needing any vasopressor support. His temperature has been up to 101.4. The patient has been started on Zosyn and consult has been requested. PAST MEDICAL HISTORY: Positive for alcoholism. The patient also has a significant history of smoking, hypertension and suspected COPD. SOCIAL HISTORY: Positive for significant alcohol use, significant smoking. Lives with at home and he still works. ALLERGIES: No known drug allergies. REVIEW OF SYSTEMS: Unable to obtain right now other than what I mentioned in the HPI through the patient's nurse. CURRENT MEDICATIONS: The patient is on Zosyn. PHYSICAL EXAMINATION: GENERAL: Orally intubated gentleman, not in any distress, who is arousable and does follow some command. VITAL SIGNS: Temperature 100.9 with T-max 101.4, pulse 93, respirations 22, blood pressure 128/66. HEENT: Both pupils are round and reacting. No conjunctival lesion, orally intubated. The patient does have scalp incision with slava in place. There is some bogginess with fluid present. NECK: Supple, no JVP, no lymphadenopathy. LUNGS: Clear. HEART: S1, S2 regular. No gallop or murmur. ABDOMEN: Soft, nontender. EXTREMITIES: No edema or cyanosis. SKIN: Unremarkable. The patient does have slightly cold left extremity compared to right. The patient also has no movement in the left lower extremity and upper extremity. He does wiggle the right toes and fingers on command. Rest of the skin examination is unremarkable. The patient does have a PICC line in the right upper extremity, which is not showing any obvious signs of infection. LABORATORY DATA: White count is 18,000. BUN and creatinine are normal. His liver functions are unremarkable. MRSA screen negative. Chest x-ray showing pulmonary infiltrate as well as effusion. CT of the head postsurgery reviewed. IMPRESSION: 1. Fever. 2. Leukocytosis. 3. Intracranial hemorrhage, status post evacuation. 4. Respiratory failure. 5. EtOH abuse. 6. Chronic obstructive pulmonary disease. RECOMMENDATIONS: We will do blood culture. We will check procalcitonin level, vancomycin and Zosyn. CT chest, abdomen and pelvis. Supportive care. Discussion with done and we will continue to follow. Thank you very much Dr. Power, for giving me the opportunity to participate in this patient's care. CHASITY BARCENAS MD DR: YANET/niles JOB#: [id number] / [id number]
[2016-12-23 12:48] LABS: OBC FLU VALID
[2016-12-23] MEDS: PANTOPRAZOLE IV PUSH 40 MG VIAL. IVP SCH (12:53)
--- NOTE | 2016-12-23 12:56 | PDOC ---
PULMONARY PROGRESS NOTES Subjective PT OFF SEDATION AWAKE AT TIMES RN REPORTS PT FOLLOW SOME COMMANDS ON PS AT TIMES Vitals Vital Signs Date Time Temp Pulse Resp B/P Pulse Ox O2 Delivery O2 Flow Rate FiO2 12/23/16 12:12 100 Ventilator 12/23/16 10:00 78 18 125/67 12/23/16 08:00 101.4 101.4 HEENT: Other (s/p crani, perrl, orally intubated, nose clear. ) Lungs: Clear Cardiovascular: S1, S2 Abdomen: Soft, Non-tender, Other (no mass) Extremities: No Edema Skin: Warm Labs Laboratory Tests Test 12/22/16 10:30 12/23/16 05:00 12/23/16 08:00 12/23/16 12:05 Sodium Level 132mmol/L (136-145) 132mmol/L (136-145) Potassium Level 3.0mmol/L (3.5-5.1) 3.9mmol/L (3.5-5.1) Chloride Level 99mmol/L (98-107) 98mmol/L (98-107) Carbon Dioxide Level 28mmol/L (21-32) 25mmol/L (21-32) Anion Gap 5 (6-14) 9 (6-14) Blood Urea Nitrogen 15mg/dL (8-26) 17mg/dL (8-26) Creatinine 0.5mg/dL (0.7-1.3) 0.5mg/dL (0.7-1.3) Estimated GFR (Cockcroft-Gault) 168.5 168.5 Glucose Level 134mg/dL (70-99) 137mg/dL (70-99) Calcium Level 8.2mg/dL (8.5-10.1) 8.6mg/dL (8.5-10.1) White Blood Count 18.3x10^3/uL (4.0-11.0) Red Blood Count 3.38x10^6/uL (4.30-5.70) Hemoglobin 10.9g/dL (13.0-17.5) Hematocrit 32.4% (39.0-53.0) Mean Corpuscular Volume 96fL (79-100) Mean Corpuscular Hemoglobin 32pg (25-35) Mean Corpuscular Hemoglobin Concent 34g/dL (31-37) Red Cell Distribution Width 12.7% (11.5-14.5) Platelet Count 330x10^3/uL (140-400) Neutrophils (%) (Auto) 77% (31-73) Lymphocytes (%) (Auto) 7% (24-48) Monocytes (%) (Auto) 16% (0-9) Eosinophils (%) (Auto) 0% (0-3) Basophils (%) (Auto) 0% (0-3) Neutrophils # (Auto) 14.1x10^3uL (1.8-7.7) Lymphocytes # (Auto) 1.2x10^3/uL (1.0-4.8) Monocytes # (Auto) 2.9x10^3/uL (0.0-1.1) Eosinophils # (Auto) 0.0x10^3/uL (0.0-0.7) Basophils # (Auto) 0.1x10^3/uL (0.0-0.2) Segmented Neutrophils % 75% (35-66) Band Neutrophils % 6% (0-9) Lymphocytes % 8% (24-48) Monocytes % 11% (0-10) Toxic Granulation Present Toxic Vacuolation Present Platelet Estimate Adequate (ADEQUATE) Magnesium Level 1.8mg/dL (1.8-2.4) O2 Saturation 96% (92-99) Arterial Blood pH 7.52 (7.35-7.45) Arterial Blood pCO2 at Patient Temp 30mmHg (35-46) Arterial Blood pO2 at Patient Temp 78mmHg (65-108) Arterial Blood HCO3 24mmol/L (21-28) Arterial Blood Base Excess 2mmol/L (-3-3) FiO2 40 Influenza Type A Antigen Negative (NEGATIVE) Influenza Type B Antigen Negative (NEGATIVE) Laboratory Tests Test 12/23/16 05:00 12/23/16 08:00 12/23/16 12:05 White Blood Count 18.3x10^3/uL (4.0-11.0) Red Blood Count 3.38x10^6/uL (4.30-5.70) Hemoglobin 10.9g/dL (13.0-17.5) Hematocrit 32.4% (39.0-53.0) Mean Corpuscular Volume 96fL (79-100) Mean Corpuscular Hemoglobin 32pg (25-35) Mean Corpuscular Hemoglobin Concent 34g/dL (31-37) Red Cell Distribution Width 12.7% (11.5-14.5) Platelet Count 330x10^3/uL (140-400) Neutrophils (%) (Auto) 77% (31-73) Lymphocytes (%) (Auto) 7% (24-48) Monocytes (%) (Auto) 16% (0-9) Eosinophils (%) (Auto) 0% (0-3) Basophils (%) (Auto) 0% (0-3) Neutrophils # (Auto) 14.1x10^3uL (1.8-7.7) Lymphocytes # (Auto) 1.2x10^3/uL (1.0-4.8) Monocytes # (Auto) 2.9x10^3/uL (0.0-1.1) Eosinophils # (Auto) 0.0x10^3/uL (0.0-0.7) Basophils # (Auto) 0.1x10^3/uL (0.0-0.2) Segmented Neutrophils % 75% (35-66) Band Neutrophils % 6% (0-9) Lymphocytes % 8% (24-48) Monocytes % 11% (0-10) Toxic Granulation Present Toxic Vacuolation Present Platelet Estimate Adequate (ADEQUATE) Sodium Level 132mmol/L (136-145) Potassium Level 3.9mmol/L (3.5-5.1) Chloride Level 98mmol/L (98-107) Carbon Dioxide Level 25mmol/L (21-32) Anion Gap 9 (6-14) Blood Urea Nitrogen 17mg/dL (8-26) Creatinine 0.5mg/dL (0.7-1.3) Estimated GFR (Cockcroft-Gault) 168.5 Glucose Level 137mg/dL (70-99) Calcium Level 8.6mg/dL (8.5-10.1) Magnesium Level 1.8mg/dL (1.8-2.4) O2 Saturation 96% (92-99) Arterial Blood pH 7.52 (7.35-7.45) Arterial Blood pCO2 at Patient Temp 30mmHg (35-46) Arterial Blood pO2 at Patient Temp 78mmHg (65-108) Arterial Blood HCO3 24mmol/L (21-28) Arterial Blood Base Excess 2mmol/L (-3-3) FiO2 40 Influenza Type A Antigen Negative (NEGATIVE) Influenza Type B Antigen Negative (NEGATIVE) Medications Active Scripts Medications Dose Route/Sig Days Date Category Benazepril Hcl 40 Mg Tablet 1 Tab PO DAILY 12/16/16 Reported Amlodipine Besylate 5 Mg Tablet 5 Mg PO DAILY 12/16/16 Reported Comments CXR MILD CONGESTION Impression . IMPRESSION: 1. Acute respiratory failure secondary ICH 2. 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 3. Underlying chronic obstructive pulmonary disease, unknown FEV1, smoked for 40 years. 4. Underlying alcoholism. 5. EDEMA 6. Fever may be central 7. Nutrition per tube feeding 8. S/P ICV filter 9. ABNORMAL CXR COMPATIBLE WITH FLUID OVERLOAD Plan . SPOKE WITH WILL MAINTAIN OFF SEDATION, TRACH ON MONDAY SPOKE WITH SURGEON PEG NEEDED CXR IS BETTER WITH LASIX FEVER PERSIST I THINK THIS IS CENTRAL CT ABD AND PELVIS REPORT NOTED PRN VERSED LASIX DAILY FOR 5 DAYS S/P IVC CONTINUE THE SAME FOR NOW ROQUE HUDDLESTON MD Dec 23, 2016 12:56
--- NOTE | 2016-12-23 13:05 | RAD ---
CT of the chest, abdomen and pelvis with contrast, 12/23/2016: History: Fever Multidetector CT imaging was performed following oral and IV administration of contrast. There is mild calcific plaquing of the thoracic aorta without evidence of aneurysm. Extensive coronary artery calcifications are present. A trace amount of pericardial fluid is noted. No mediastinal adenopathy is seen. An NG tube, ET tube and right sided central venous catheter are in place. There are moderate sized bilateral pleural effusions. There is moderate underlying atelectasis posteriorly in both lower lobes. On image 43 of series #2 there is a 6 mm nodular pulmonary opacity in the inferolateral aspect of the right middle lobe. No other pulmonary nodularity or mass is seen. Streak artifacts arising from the patient's arms degrade image quality in the abdomen. No hepatic abnormality is seen. The gallbladder is unremarkable. No pancreatic abnormality is seen. The spleen is of normal size. An inferior vena cava filter is in place. There is moderate aortoiliac calcific plaquing without evidence of aneurysm. A Liu catheter is present in the collapsed urinary bladder. There are colonic diverticula, most numerous in the sigmoid and distal descending colon. There is mild generalized streaky increased density in the mesenteric fat in the abdomen. This is probably related to the same generalized edematous process which is producing subcutaneous edema in the back and flank regions. No paracolonic inflammatory mass is seen. No free air is evident in the abdomen or pelvis. There appears to be a trace amount of free fluid in the pelvis. There are moderate scattered degenerative changes in the spine. IMPRESSION: 1. Moderate sized bilateral pleural effusions with moderate underlying atelectasis posteriorly in both lower lobes. 2. Tiny nonspecific right middle lobe pulmonary nodule. 3. Calcific plaquing of the aorta and coronary arteries. 4. Sigmoid diverticulosis. 5. Anasarca. 6. An inferior vena cava filter is in place. PQRS Compliance Statement: One or more of the following individualized dose reduction techniques were utilized for this examination: 1. Automated exposure control 2. Adjustment of the mA and/or kV according to patient size 3. Use of iterative reconstruction technique
--- NOTE | 2016-12-23 13:29 | PDOC ---
PROGRESS NOTES Chief Complaint Chief Complaint cc: ams A/P Right frontal craniotomy with evacuation of intracerebral hematoma and placement of external ventricular drain in the right lateral ventricle.POD 5 Alcohol abuse Respiratory failure on Mechanical ventilation Elective Hyponatremia fever 2/2 intracranial hemarrhage vs. asp PNA IVC filter Plan On mechanical ventilation, off sedation, SBT ok, but not waking up totally CIWA protocol for alcohol withdrawal precaution add zosyn, ID consult NS following Keppra for seizure precautions BP goal < SBP 130 Replace IV potassium and Magnesium GI prophylaxis NO dvt prophylaxis Tube feeds, dc ivf, lasix 40mg x1, now lasix 20mg daily family at bedside, all questions answered try wean daily off sedation IVC filter for PE prevention as per neurosx on 12/[address] repeat 12/22/16 better now on zosyn, vanco, levaquin with ID, bcx may need trach if cannot wean History of Present Illness History of Present Illness intubated. failed wean trial yesterday with tachycardia and HTN 2 days ago, better now, but not waking up enough fever, secretion + Vitals Vitals Vital Signs Date Time Temp Pulse Resp B/P Pulse Ox O2 Delivery O2 Flow Rate FiO2 12/23/16 12:12 100 Ventilator 12/23/16 10:00 78 18 125/67 12/23/16 08:00 101.4 101.4 Physical Exam Physical Exam intubated, off sedation for 2 days, can wig toes, but not really waking up General: Other (no distress) Heart: Normal S1, Normal S2 Lungs: Clear Abdomen: Normal bowel sounds, Soft Extremities: No clubbing, No cyanosis Skin: Other (drain D/C'D without difficulty, staple placed, incision healing well with slava intact) Labs LABS Laboratory Tests Test 12/23/16 05:00 12/23/16 08:00 12/23/16 12:05 White Blood Count 18.3x10^3/uL (4.0-11.0) Red Blood Count 3.38x10^6/uL (4.30-5.70) Hemoglobin 10.9g/dL (13.0-17.5) Hematocrit 32.4% (39.0-53.0) Mean Corpuscular Volume 96fL (79-100) Mean Corpuscular Hemoglobin 32pg (25-35) Mean Corpuscular Hemoglobin Concent 34g/dL (31-37) Red Cell Distribution Width 12.7% (11.5-14.5) Platelet Count 330x10^3/uL (140-400) Neutrophils (%) (Auto) 77% (31-73) Lymphocytes (%) (Auto) 7% (24-48) Monocytes (%) (Auto) 16% (0-9) Eosinophils (%) (Auto) 0% (0-3) Basophils (%) (Auto) 0% (0-3) Neutrophils # (Auto) 14.1x10^3uL (1.8-7.7) Lymphocytes # (Auto) 1.2x10^3/uL (1.0-4.8) Monocytes # (Auto) 2.9x10^3/uL (0.0-1.1) Eosinophils # (Auto) 0.0x10^3/uL (0.0-0.7) Basophils # (Auto) 0.1x10^3/uL (0.0-0.2) Segmented Neutrophils % 75% (35-66) Band Neutrophils % 6% (0-9) Lymphocytes % 8% (24-48) Monocytes % 11% (0-10) Toxic Granulation Present Toxic Vacuolation Present Platelet Estimate Adequate (ADEQUATE) Sodium Level 132mmol/L (136-145) Potassium Level 3.9mmol/L (3.5-5.1) Chloride Level 98mmol/L (98-107) Carbon Dioxide Level 25mmol/L (21-32) Anion Gap 9 (6-14) Blood Urea Nitrogen 17mg/dL (8-26) Creatinine 0.5mg/dL (0.7-1.3) Estimated GFR (Cockcroft-Gault) 168.5 Glucose Level 137mg/dL (70-99) Calcium Level 8.6mg/dL (8.5-10.1) Magnesium Level 1.8mg/dL (1.8-2.4) O2 Saturation 96% (92-99) Arterial Blood pH 7.52 (7.35-7.45) Arterial Blood pCO2 at Patient Temp 30mmHg (35-46) Arterial Blood pO2 at Patient Temp 78mmHg (65-108) Arterial Blood HCO3 24mmol/L (21-28) Arterial Blood Base Excess 2mmol/L (-3-3) FiO2 40 Influenza Type A Antigen Negative (NEGATIVE) Influenza Type B Antigen Negative (NEGATIVE) Review of Systems Review of Systems fever, no chills Assessment and Plan Assessmemt and Plan Problems Medical Problems: (1) Intraparenchymal hematoma of brain Status: Acute Problems: Comment Review of Relevant I have reviewed the following items jose alfredo (where applicable) has been applied. Labs Laboratory Tests Test 12/22/16 10:30 12/23/16 05:00 12/23/16 08:00 12/23/16 12:05 Sodium Level 132mmol/L (136-145) 132mmol/L (136-145) Potassium Level 3.0mmol/L (3.5-5.1) 3.9mmol/L (3.5-5.1) Chloride Level 99mmol/L (98-107) 98mmol/L (98-107) Carbon Dioxide Level 28mmol/L (21-32) 25mmol/L (21-32) Anion Gap 5 (6-14) 9 (6-14) Blood Urea Nitrogen 15mg/dL (8-26) 17mg/dL (8-26) Creatinine 0.5mg/dL (0.7-1.3) 0.5mg/dL (0.7-1.3) Estimated GFR (Cockcroft-Gault) 168.5 168.5 Glucose Level 134mg/dL (70-99) 137mg/dL (70-99) Calcium Level 8.2mg/dL (8.5-10.1) 8.6mg/dL (8.5-10.1) White Blood Count 18.3x10^3/uL (4.0-11.0) Red Blood Count 3.38x10^6/uL (4.30-5.70) Hemoglobin 10.9g/dL (13.0-17.5) Hematocrit 32.4% (39.0-53.0) Mean Corpuscular Volume 96fL (79-100) Mean Corpuscular Hemoglobin 32pg (25-35) Mean Corpuscular Hemoglobin Concent 34g/dL (31-37) Red Cell Distribution Width 12.7% (11.5-14.5) Platelet Count 330x10^3/uL (140-400) Neutrophils (%) (Auto) 77% (31-73) Lymphocytes (%) (Auto) 7% (24-48) Monocytes (%) (Auto) 16% (0-9) Eosinophils (%) (Auto) 0% (0-3) Basophils (%) (Auto) 0% (0-3) Neutrophils # (Auto) 14.1x10^3uL (1.8-7.7) Lymphocytes # (Auto) 1.2x10^3/uL (1.0-4.8) Monocytes # (Auto) 2.9x10^3/uL (0.0-1.1) Eosinophils # (Auto) 0.0x10^3/uL (0.0-0.7) Basophils # (Auto) 0.1x10^3/uL (0.0-0.2) Segmented Neutrophils % 75% (35-66) Band Neutrophils % 6% (0-9) Lymphocytes % 8% (24-48) Monocytes % 11% (0-10) Toxic Granulation Present Toxic Vacuolation Present Platelet Estimate Adequate (ADEQUATE) Magnesium Level 1.8mg/dL (1.8-2.4) O2 Saturation 96% (92-99) Arterial Blood pH 7.52 (7.35-7.45) Arterial Blood pCO2 at Patient Temp 30mmHg (35-46) Arterial Blood pO2 at Patient Temp 78mmHg (65-108) Arterial Blood HCO3 24mmol/L (21-28) Arterial Blood Base Excess 2mmol/L (-3-3) FiO2 40 Influenza Type A Antigen Negative (NEGATIVE) Influenza Type B Antigen Negative (NEGATIVE) Laboratory Tests Test 12/23/16 05:00 12/23/16 08:00 12/23/16 12:05 White Blood Count 18.3x10^3/uL (4.0-11.0) Red Blood Count 3.38x10^6/uL (4.30-5.70) Hemoglobin 10.9g/dL (13.0-17.5) Hematocrit 32.4% (39.0-53.0) Mean Corpuscular Volume 96fL (79-100) Mean Corpuscular Hemoglobin 32pg (25-35) Mean Corpuscular Hemoglobin Concent 34g/dL (31-37) Red Cell Distribution Width 12.7% (11.5-14.5) Platelet Count 330x10^3/uL (140-400) Neutrophils (%) (Auto) 77% (31-73) Lymphocytes (%) (Auto) 7% (24-48) Monocytes (%) (Auto) 16% (0-9) Eosinophils (%) (Auto) 0% (0-3) Basophils (%) (Auto) 0% (0-3) Neutrophils # (Auto) 14.1x10^3uL (1.8-7.7) Lymphocytes # (Auto) 1.2x10^3/uL (1.0-4.8) Monocytes # (Auto) 2.9x10^3/uL (0.0-1.1) Eosinophils # (Auto) 0.0x10^3/uL (0.0-0.7) Basophils # (Auto) 0.1x10^3/uL (0.0-0.2) Segmented Neutrophils % 75% (35-66) Band Neutrophils % 6% (0-9) Lymphocytes % 8% (24-48) Monocytes % 11% (0-10) Toxic Granulation Present Toxic Vacuolation Present Platelet Estimate Adequate (ADEQUATE) Sodium Level 132mmol/L (136-145) Potassium Level 3.9mmol/L (3.5-5.1) Chloride Level 98mmol/L (98-107) Carbon Dioxide Level 25mmol/L (21-32) Anion Gap 9 (6-14) Blood Urea Nitrogen 17mg/dL (8-26) Creatinine 0.5mg/dL (0.7-1.3) Estimated GFR (Cockcroft-Gault) 168.5 Glucose Level 137mg/dL (70-99) Calcium Level 8.6mg/dL (8.5-10.1) Magnesium Level 1.8mg/dL (1.8-2.4) O2 Saturation 96% (92-99) Arterial Blood pH 7.52 (7.35-7.45) Arterial Blood pCO2 at Patient Temp 30mmHg (35-46) Arterial Blood pO2 at Patient Temp 78mmHg (65-108) Arterial Blood HCO3 24mmol/L (21-28) Arterial Blood Base Excess 2mmol/L (-3-3) FiO2 40 Influenza Type A Antigen Negative (NEGATIVE) Influenza Type B Antigen Negative (NEGATIVE) Medications Current Medications Multivitamins/ Minerals/Folic Acid/Thiamine HCl/ Sodium Chloride (Infuvite Adult / Iv Sodium Chloride 0.9% 1000ml Bag) 1,011.2 ml @ 1,000 mls/ hr 1X ONCE IV Last administered on 12/15/16 18:53; Start 12/15/16 at 18:45; Stop 12/15/16 at 19: 45; Status DC Ondansetron HCl 4 mg 4 mg 1X ONCE IV ; Start 12/15/16 at 18:45; Stop 12/15/16 at 18:46; Status DC Propofol 0 ml @ As Directed STK-MED ONCE IV ; Start 12/15/16 at 19:57; Stop at 19:58; Status DC Propofol (Diprivan) 50 ml @ As Directed STK-MED ONCE IV ; Start 12/15/16 at 19:57 ; Stop 12/15/16 at 19:58; Status DC Lidocaine HCl 100 mg STK-MED ONCE .ROUTE ; Start 12/15/16 at 20:45; Stop 12/15/16 at 20:46; Status DC Fentanyl Citrate (Fentanyl 2ml Vial) 100 mcg STK-MED ONCE .ROUTE ; Start at 20:46; Stop 12/15/16 at 20:47; Status DC Rocuronium [place] (Zemuron) 50 mg STK-MED ONCE .ROUTE ; Start 12/15/16 at 20:46 ; Stop 12/15/16 at 20:47; Status DC Ondansetron HCl 4 mg 4 mg PRN Q8HRS PRN IV NAUSEA/VOMITING; Start 12/15/16 at 20 :45; Stop 12/15/16 at 23:44; Status DC Sodium Chloride (Iv Sodium Chloride 0.9% 1000ml Bag) 1,000 ml @ 100 mls/hr Q10H IV Last administered on 12/16/16 06:45; Start 12/15/16 at 20:45; Stop 08/22 at 07:25; Status DC Acetaminophen (Tylenol) 650 mg PRN Q4HRS PRN PO FEVER Last administered on 12/16 16:43; Start 12/15/16 at 20:45; Stop 12/16/16 at 20:44; Status DC Etomidate (Amidate) 20 mg 1X ONCE IV Last administered on 12/15/16 19:51; Start 12/15/16 at 20:45; Stop 12/15/16 at 20:53; Status DC Succinylcholine Chloride 100 mg 100 mg 1X ONCE IV Last administered on 19:52; Start 12/15/16 at 20:45; Stop 12/15/16 at 20:53; Status DC Bacitracin/Sodium Chloride (Iv Sodium Chloride 0.9% 1000ml Bag) 1,000 ml @ 1, 000 mls/hr 1X PERIOP ONCE IRR Last administered on 12/15/16 22:05; Start at 21:00; Stop 12/15/16 at 21:59; Status DC Cellulose 1 each STK-MED ONCE .ROUTE Last administered on 12/15/16 22:05; Start 12/15/16 at 20:58; Stop 12/15/16 at 20:59; Status DC Bupivacaine HCl/ Epinephrine Bitart (Sensorcain-Mpf Epi 0.5%-1:[id number]) 30 ml STK -MED ONCE .ROUTE Last administered on 12/15/16 22:05; Start 12/15/16 at 20:58; Stop 12/15/16 at 20:59; Status DC Gelatin (Gelfoam Size 100) 1 each STK-MED ONCE .ROUTE Last administered on 12/15 22:05; Start 12/15/16 at 20:58; Stop 12/15/16 at 20:59; Status DC Thrombin 05470 unit 20,000 unit STK-MED ONCE TP Last administered on 12/15/16 22:05; Start 12/15/16 at 20:58; Stop 12/15/16 at 20:59; Status DC Propofol (Diprivan) 20 ml @ As Directed STK-MED ONCE IV ; Start 12/15/16 at 21:06 ; Stop 12/15/16 at 21:07; Status DC Desflurane 60 ml 60 ml STK-MED ONCE IH ; Start 12/15/16 at 21:49; Stop 12/15/16 at 21:50; Status DC Cefazolin Sodium/ Dextrose 50 ml @ As Directed STK-MED ONCE IV ; Start 12/15/16 at 21:52; Stop 12/15/16 at 21:53; Status DC Mannitol (Mannitol Iv Soln) 500 ml @ As Directed STK-MED ONCE IV ; Start at 21:53; Stop 12/15/16 at 21:54; Status DC Phenylephrine HCl 1 mg 1 mg STK-MED ONCE IV ; Start 12/15/16 at 21:55; Stop at 21:56; Status DC Levetiracetam/ Sodium Chloride (Keppra/Iv Sodium Chloride 0.9% 100ml) 100 ml @ 400 mls/hr 1X ONCE IV Last administered on 12/15/16t 22:30; Start 12/15/16 at 22 :15; Stop 12/15/16 at 22:29; Status DC Ondansetron HCl (Zofran) 4 mg PRN Q6HRS PRN IV Nausea; Start 12/15/16 at 22:30; Stop 12/16/16 at 14:48; Status DC Fentanyl Citrate (Fentanyl 2ml Vial) 25 mcg PRN Q5MIN PRN IV MILD PAIN; Start 12/15/16 at 22:30; Stop 12/16/16 at 13:00; Status DC Fentanyl Citrate (Fentanyl 2ml Vial) 50 mcg PRN Q5MIN PRN IV MODERATE PAIN; Start 12/15/16 at 22:30; Stop 12/16/16 at 13:00; Status DC Morphine Sulfate 1 mg 1 mg PRN Q10MIN PRN IV SEVERE PAIN; Start 12/15/16 at 22: 30; Stop 12/16/16 at 13:08; Status DC Lactated Ringer's (Iv Lactated Ringers) 1,000 ml @ 0 mls/hr Q0M IV ; Start 12/15 at 22:30; Stop 12/16/16 at 13:08; Status DC Lidocaine HCl 2 ml 1X PRN PRN ID IV START; Start 12/15/16 at 22:30; Stop at 13:08; Status DC Hydromorphone HCl (Dilaudid) 0.5 mg PRN Q10MIN PRN IV SEV PAIN,Second choice; Start 12/15/16 at 22:30; Stop 12/16/16 at 13:01; Status DC Prochlorperazine Edisylate 5 mg 5 mg PACU PRN PRN IV NAUSEA; Start 12/15/16 at 22:30; Stop 12/16/16 at 13:08; Status DC Propofol 100 ml @ As Directed STK-MED ONCE IV ; Start 12/15/16 at 23:13; Stop at 23:14; Status DC Nicardipine HCl/ Sodium Chloride (Cardene/Iv Sodium Chloride 0.9% 250ml) 270 ml @ 27 mls/hr TITRATE PRN IV PER PROTOCOL; Start 12/15/16 at 23:30 Diphenhydramine HCl (Benadryl) 25 mg PRN Q6HRS PRN PO ITCHING; Start 12/15/16 at 23:30; Stop 12/19/16 at 12:54; Status DC Diphenhydramine HCl 25 mg 25 mg PRN Q6HRS PRN IV ITCHING; Start 12/15/16 at 23: 30 Levetiracetam/ Sodium Chloride (Keppra/Iv Sodium Chloride 0.9% 100ml) 105 ml @ 400 mls/hr Q12HR IV Last administered on 12/23/16 08:02; Start 12/16/16 at 09: 00 Sodium Chloride (Normal Saline Flush) 3 ml QSHIFT PRN IV AFTER MEDS AND BLOOD DRAWS; Start 12/15/16 at 23:30 Dextrose 12.5 gm PRN Q15MIN PRN IV SEE COMMENTS; Start 12/15/16 at 23:30 Magnesium Hydroxide (Milk Of Magnesia) 2,400 mg PRN Q12HR PRN PO CONSTIPATION; Start 12/15/16 at 23:30 Ondansetron HCl 4 mg 4 mg PRN Q6HRS PRN IV NAUESA, 1ST CHOICE; Start 12/15/16 at 23:30 Cefazolin Sodium 1 gm/Sodium Chloride 50 ml @ 100 mls/hr Q8HRS IV Last administered on 12/16/16 21:05; Start 12/16/16 at 06:00; Stop 12/16/16 at 22:29 ; Status DC Potassium Chloride/Dextrose/ Sod Cl (KCl 20 Meq In D5W-1/2 NS) 1,000 ml @ 75 mls/hr [id number] IV Last administered on 12/18/16 18:18; Start 12/15/16 at 23:30 ; Stop 12/19/16 at 09:48; Status DC Fentanyl Citrate (Fentanyl 2ml Vial) 25 mcg PRN Q1HR PRN IV PAIN Last administered on 12/18/16 12:01; Start 12/15/16 at 23:30 Fentanyl Citrate (Fentanyl 2ml Vial) 50 mcg PRN Q1HR PRN IV PAIN Last administered on 12/23/16 00:12; Start 12/15/16 at 23:30 Info (Do NOT chart on this placeholder) 1 each 1X ONCE MC ; Start 12/16/16 at 04:00; Stop 12/16/16 at 04:01; Status UNV Pneumococcal Polyvalent Vaccine (Do NOT chart on this placeholder) 1 each 1X ONCE MC ; Start 12/16/16 at 04:00; Stop 12/16/16 at 04:01; Status UNV Influenza Virus Vaccine Quadrival (Fluarix Quad [id number] Syringe) 0.5 ml ONCE ONCE VAX IM Last administered on 12/17/16 08:49; Start 12/16/16 at 09:00; Stop 12/16/16 at 09:01; Status DC Pneumococcal Polyvalent Vaccine 0.5 ml 0.5 ml ONCE ONCE VAX IM Last administered on 12/17/16 08:47; Start 12/16/16 at 09:00; Stop 12/16/16 at 09:01 ; Status DC Propofol 100 ml @ 0 mls/hr CONT PRN IV SEE I/O RECORD Last administered on 12/21 02:53; Start 12/16/16 at 04:30 Propofol 100 ml @ 0 mls/hr CONT PRN IV SEE I/O RECORD; Start 12/16/16 at 00:00 ; Stop 12/16/16 at 03:00; Status Cancel Propofol 100 ml @ 0 mls/hr CONT PRN IV SEE I/O RECORD Last administered on 20:00; Start 12/16/16 at 00:00; Stop 12/16/16 at 09:04; Status DC Multivitamins/ Minerals/Thiamine HCl/Folic Acid/ Sodium Chloride (Infuvite Adult / Iv Sodium Chloride 0.9% 1000ml Bag) 1,011.2 ml @ 100 mls/ hr DAILY IV Last administered on 12/22/16 08:31; Start 12/16/16 at 10:00; Stop 12/22/16 at 09:59 ; Status DC Lorazepam (Ativan) 2 mg PRN Q1HR PRN IV For CIWA 8-14 Last administered on 12/21 21:57; Start 12/16/16 at 10:00 Lorazepam (Ativan) 4 mg PRN Q1HR PRN IV For CIWA 15 or greater Last administered on 12/22/16 01:36; Start 12/16/16 at 10:00 Piperacillin Sod/ Tazobactam Sod (Zosyn Per Pharmacy) 1 each PRN DAILY PRN MC SEE COMMENTS; Start 12/16/16 at 10:30; Stop 12/18/16 at 11:54; Status DC Vancomycin HCl 1 each 1 each PRN DAILY PRN MC SEE COMMENTS Last administered on 12/18/16 04:00; Start 12/16/16 at 10:30; Stop 12/18/16 at 11:54; Status DC Vancomycin HCl 1.5 gm/Sodium Chloride 500 ml @ 250 mls/hr 1X ONCE IV Last administered on 12/16/16 14:08; Start 12/16/16 at 11:00; Stop 12/16/16 at 12:59 ; Status DC Piperacillin Sod/ Tazobactam Sod/ Sodium Chloride (Zosyn/Iv Sodium Chloride 0.9 % 100ml) 100 ml @ 200 mls/hr Q6HRS IV Last administered on 12/18/16 05:11; Start 12/16/16 at 12:00; Stop 12/18/16 at 11:54; Status DC Propofol 1000 mg 1,000 mg STK-MED ONCE IV ; Start 12/15/16 at 23:00; Stop at 13:28; Status DC Vancomycin HCl/ Sodium Chloride (Iv Sodium Chloride 0.9% 250ml) 250 ml @ 250 mls/hr Q12H IV Last administered on 12/18/16 02:00; Start 12/17/16 at 02:00; Stop 12/18/16 at 03:45; Status DC Vancomycin HCl 1 each 1X ONCE MC Last administered on 12/18/16 01:30; Start 12/18/16 at 01:30; Stop 12/18/16 at 11:54; Status DC Hydralazine HCl (Apresoline) 10 mg PRN Q4HRS PRN IVP ELEVATED BP, SEE COMMENTS Last administered on 12/22/16 23:49; Start 12/17/16 at 12:15 Potassium Chloride 40 meq 40 meq 1X ONCE PO ; Start 12/17/16 at 18:15; Stop 09/22 at 18:16; Status Cancel Potassium Chloride 50 ml @ 50 mls/hr Q1H IV Last administered on 12/18/16 00: 55; Start 12/17/16 at 19:00; Stop 12/17/16 at 20:59; Status DC Vancomycin HCl/ Sodium Chloride (Iv Sodium Chloride 0.9% 250ml) 250 ml @ 250 mls/hr Q8H IV Last administered on 12/18/16 03:54; Start 12/18/16 at 04:00; Stop 12/18/16 at 11:54; Status DC Vancomycin HCl 1 each 1X ONCE MC ; Start 12/19/16 at 03:30; Stop 12/19/16 at 03 :30; Status DC Budesonide (Pulmicort) 0.5 mg RTBID NEB Last administered on 12/23/16 07:41; Start 12/18/16 at 08:00 Vecuronium [place] 6 mg 6 mg 1X ONCE IV Last administered on 12/18/16 13:09; Start 12/18/16 at 13:00; Stop 12/18/16 at 13:01; Status DC Magnesium Sulfate/ Dextrose 50 ml @ 25 mls/hr 1X ONCE IV Last administered on 12/18/16 15:34; Start 12/18/16 at 15:00; Stop 12/18/16 at 16:59; Status DC Potassium Chloride 100 ml @ 100 mls/hr Q1H IV Last administered on 12/18/16 18:17; Start 12/18/16 at 15:00; Stop 12/18/16 at 18:59; Status DC Cefazolin Sodium 1 gm/Sodium Chloride 50 ml @ 100 mls/hr Q8HRS IV Last administered on 12/22/16 05:34; Start 12/19/16 at 10:00; Stop 12/22/16 at 10:01 ; Status DC Magnesium Sulfate/ Dextrose 50 ml @ 25 mls/hr 1X ONCE IV Last administered on 12/19/16 10:42; Start 12/19/16 at 10:30; Stop 12/19/16 at 12:29; Status DC Sodium Chloride/ Potassium Chloride/ Potassium Phosphate/ Magnesium Sulfate/ Calcium Gluconate/ Multivitamins/ Minerals/Chromium/ Copper/Manganese/ Seleni/Zn /Total Parenteral Nutrition/Amino Acids/Dextrose/ Fat Emulsion Intravenous ( Sodium Chloride/ Potassium Phospha... 87.0013 ml @ 3.625 mls/hr TPN CONT IV ; Start 12/19/16 at 22:00; Stop 12/19/16 at 22:00; Status Cancel Info 1 each 1 each PRN DAILY PRN MC SEE COMMENTS; Start 12/19/16 at 10:00; Stop 12/19/16 at 10:00; Status DC Potassium Chloride (KCl Premix 10meq) 100 ml @ 100 mls/hr Q1H IV Last administered on 12/19/16 20:52; Start 12/19/16 at 11:00; Stop 12/19/16 at 14:59 ; Status DC Acetaminophen (Tylenol) 650 mg PRN Q6HRS PRN PO MILD PAIN / TEMP; Start at 13:45; Status Cancel Acetaminophen 650 mg 650 mg PRN Q6HRS PRN PEG MILD PAIN / TEMP Last administered on 12/23/16 08:18; Start 12/19/16 at 14:00 Potassium Chloride/Sodium Chloride (Iv Sodium Chloride 0.45%) 1,015 ml @ 75 mls /hr [id number] IV Last administered on 12/19/16 21:24; Start 12/19/16 at 21:30; Stop 12/20/16 at 08:48; Status DC Furosemide (Lasix) 20 mg 1X ONCE IVP Last administered on 12/20/16 09:09; Start 12/20/16 at 09:30; Stop 12/20/16 at 09:31; Status DC Iohexol (Omnipaque 300 Mg/ml) 100 ml STK-MED ONCE .ROUTE ; Start 12/20/16 at 16: 17; Stop 12/20/16 at 16:18; Status DC Lidocaine HCl 20 ml 20 ml STK-MED ONCE .ROUTE ; Start 12/20/16 at 16:17; Stop at 16:18; Status DC Heparin Sodium/ Sodium Chloride 500 ml @ As Directed STK-MED ONCE .ROUTE ; Start 12/20/16 at 16:17; Stop 12/20/16 at 16:18; Status DC Heparin Sodium/ Sodium Chloride 1,000 unit 1X ONCE IART Last administered on 16:45; Start 12/20/16 at 16:45; Stop 12/20/16 at 16:46; Status DC Iohexol (Omnipaque 300 Mg/ml) 100 ml 1X ONCE IART Last administered on 16:45; Start 12/20/16 at 16:45; Stop 12/20/16 at 16:46; Status DC Lidocaine HCl 20 ml 1X ONCE IJ Last administered on 12/20/16 16:45; Start at 16:45; Stop 12/20/16 at 16:46; Status DC Furosemide (Lasix) 40 mg 1X ONCE IVP Last administered on 12/21/16 11:35; Start 12/21/16 at 10:15; Stop 12/21/16 at 10:17; Status DC Scopolamine (Transderm-Scop) 1 patch Q3DAYS TD ; Start 12/24/16 at 09:00; Status UNV Atropine Sulfate 1 drop 1 drop PRN Q2HR PRN SL SECRETIONS Last administered on 12/21/16 21:57; Start 12/21/16 at 19:30 Piperacillin Sod/ Tazobactam Sod/ Sodium Chloride (Zosyn/Iv Sodium Chloride 0.9 % 100ml) 100 ml @ 200 mls/hr Q6HRS IV Last administered on 12/23/16 12:51; Start 12/22/16 at 11:00 Piperacillin Sod/ Tazobactam Sod 1 each 1 each PRN DAILY PRN MC SEE COMMENTS; Start 12/22/16 at 10:00; Stop 12/22/16 at 10:12; Status DC Potassium Chloride (KCl Premix 20meq) 50 ml @ 50 mls/hr Q1H IV Last administered on 12/22/16 17:22; Start 12/22/16 at 15:00; Stop 12/22/16 at 16:59 ; Status DC Furosemide (Lasix) 20 mg DAILY IVP Last administered on 12/23/16 08:06; Start 12/22/16 at 15:30; Stop 12/29/16 at 15:29 Vancomycin HCl 1 each 1 each PRN DAILY PRN MC SEE COMMENTS Last administered on 12/23/16 08:18; Start 12/23/16 at 08:15 Vancomycin HCl 1.75 gm/Sodium Chloride 500 ml @ 250 mls/hr 1X ONCE IV Last administered on 12/23/16 11:23; Start 12/23/16 at 08:30; Stop 12/23/16 at 10:29 ; Status DC Vancomycin HCl/ Sodium Chloride (Iv Sodium Chloride 0.9% 250ml) 250 ml @ 250 mls/hr Q8H IV ; Start 12/23/16 at 16:30 Vancomycin HCl 1 each 1 each 1X ONCE MC ; Start 12/24/16 at 08:00; Stop at 08:01 Levofloxacin/ Dextrose (LEVAQUIN 500mg PREMIX) 100 ml @ 100 mls/hr Q24H IV Last administered on 12/23/16 08:59; Start 12/23/16 at 08:30 Iohexol (Omnipaque 240 Mg/ml) 30 ml 1X ONCE PO Last administered on 12/23/16 11:09; Start 12/23/16 at 09:00; Stop 12/23/16 at 09:01; Status DC Iohexol (Omnipaque 300 Mg/ml) 75 ml 1X ONCE IV Last administered on 12/23/16 11:08; Start 12/23/16 at 09:00; Stop 12/23/16 at 09:01; Status DC Pantoprazole Sodium (Protonix Vial) 40 mg DAILYAC IVP Last administered on 12/23 12:53; Start 12/23/16 at 12:00 Active Scripts Active Reported Benazepril Hcl 40 Mg Tablet 1 Tab PO DAILY Amlodipine Besylate 5 Mg Tablet 5 Mg PO DAILY Vitals/I & O Vital Sign - Last 24 Hours 12/22/16 12/22/16 12/22/16 12/22/16 14:00 15:00 15:25 16:00 Temp 101.4 101.4 Pulse 110 92 96 Resp 31 21 20 B/P 147/88 138/70 124/68 Pulse Ox 97 97 92 95 O2 Delivery Ventilator Ventilator Ventilator Ventilator 12/22/16 12/22/16 12/22/16 12/22/16 16:00 17:00 17:01 18:00 Temp 100.6 100.6 Pulse 100 98 Resp 24 21 B/P 138/83 139/91 Pulse Ox 99 99 97 O2 Delivery Mechanical Ventilator Ventilator Ventilator Ventilator 12/22/16 12/22/16 12/22/16 12/22/16 19:00 19:39 20:00 20:00 Temp 101.0 101.0 Pulse 87 100 Resp 20 23 B/P 147/83 159/91 Pulse Ox 99 100 100 O2 Delivery Ventilator Ventilator Ventilator 12/22/16 12/22/16 12/22/16 12/22/16 20:00 21:00 22:00 23:00 Pulse 102 88 114 Resp 24 18 25 B/P 153/98 144/84 166/97 Pulse Ox 98 100 98 O2 Delivery Mechanical Ventilator Ventilator Ventilator Ventilator 12/22/16 12/22/16 12/23/16 12/23/16 23:35 23:49 00:00 00:00 Temp 100.6 100.6 Pulse 110 86 Resp 19 B/P 166/97 134/85 Pulse Ox 99 99 O2 Delivery Ventilator Ventilator Mechanical Ventilator 12/23/16 12/23/16 12/23/16 12/23/16 00:12 01:00 01:00 01:42 Pulse 92 Resp 23 23 23 B/P 114/70 Pulse Ox 99 98 98 99 O2 Delivery Ventilator Ventilator Ventilator Ventilator 12/23/16 12/23/16 12/23/16 12/23/16 02:00 03:00 03:49 04:00 Pulse 84 93 Resp 19 22 B/P 123/58 128/66 Pulse Ox 100 99 99 O2 Delivery Ventilator Ventilator Ventilator Mechanical Ventilator 12/23/16 12/23/16 12/23/16 12/23/16 04:00 05:00 05:25 06:00 Temp 100.9 100.9 Pulse 97 97 101 Resp 18 20 23 B/P 132/68 147/73 141/80 Pulse Ox 100 100 99 100 O2 Delivery Ventilator Ventilator Ventilator Ventilator 12/23/16 12/23/16 12/23/16 12/23/16 07:00 07:41 08:00 08:00 Temp 101.4 101.4 Pulse 104 94 Resp 22 18 B/P 156/89 142/72 Pulse Ox 99 100 100 O2 Delivery Ventilator Ventilator Ventilator Mechanical Ventilator 12/23/16 12/23/16 12/23/16 12/23/16 09:00 10:00 10:11 12:12 Pulse 80 78 Resp 17 18 B/P 107/59 125/67 Pulse Ox 98 100 100 100 O2 Delivery Ventilator Ventilator Ventilator Ventilator Intake and Output 12/22/16 12/22/16 12/23/16 15:00 23:00 07:00 Intake Total 255 ml 255 ml 3364 ml Output Total 595 ml 1900 ml 380 ml Balance -340 ml -1645 ml 2984 ml LESLYE VENEGAS MD Dec 23, 2016 13:29
[2016-12-23] MEDS: VANCOMYCIN 1 GM in IV NORMAL SALINE 250ML 250 ML IV SCH (15:35)
--- NOTE | 2016-12-23 15:35 | PDOC2 ---
CONSULT Date of Consult Date of Consult DATE: 12/23/16 TIME: 15:28 Reason for Consult Reason for Consult: Tracheostomy Referring Physician Referring Physician: Dr Burkett Identification/Chief Complaint Chief Complaint Intracranial hemorrhage Source Source: Caregiver, Chart review History of Present Illness Reason for Visit: Mr Barrera is a 61-year-old male who was admitted a week ago with altered mental status. He was intubated in the emergency room and a CT of the head showed a large frontal lobe and intraventricular hemorrhage, for which she underwent emergent craniotomy. He has been intubated ever since with minimal neurological recovery thus far. He is on minimal vent settings. I was consulted to consider the patient for tracheostomy. Past Medical History Cardiovascular: HTN Pulmonary: COPD CENTRAL NERVOUS SYSTEM: CVA GI: No pertinent hx Heme/Onc: No pertinent hx Hepatobiliary: No pertinent hx Psych: No pertinent hx Rheumatologic: No pertinent hx Infectious disease: No pertinent hx ENT: No pertinent hx Renal/: No pertinent hx Endocrine: No pertinent hx Dermatology: No pertinent hx Past Surgical History Past Surgical History: Other (frontal craniotomy) Family History Family History: No Significant Social History ALCOHOL: heavy Drugs: None Lives: with Family Domestic Violence: Neg Current Problem List Problem List Problems Medical Problems: (1) Intraparenchymal hematoma of brain Status: Acute Current Medications Current Medications Current Medications Multivitamins/ Minerals/Folic Acid/Thiamine HCl/ Sodium Chloride (Infuvite Adult / Iv Sodium Chloride 0.9% 1000ml Bag) 1,011.2 ml @ 1,000 mls/ hr 1X ONCE IV Last administered on 12/15/16t 18:53; Start 12/15/16 at 18:45; Stop 12/15/16 at 19: 45; Status DC Ondansetron HCl 4 mg 4 mg 1X ONCE IV ; Start 12/15/16 at 18:45; Stop 12/15/16 at 18:46; Status DC Propofol 0 ml @ As Directed STK-MED ONCE IV ; Start 12/15/16 at 19:57; Stop at 19:58; Status DC Propofol (Diprivan) 50 ml @ As Directed STK-MED ONCE IV ; Start 12/15/16 at 19:57 ; Stop 12/15/16 at 19:58; Status DC Lidocaine HCl 100 mg STK-MED ONCE .ROUTE ; Start 12/15/16 at 20:45; Stop 12/15/16 at 20:46; Status DC Fentanyl Citrate (Fentanyl 2ml Vial) 100 mcg STK-MED ONCE .ROUTE ; Start at 20:46; Stop 12/15/16 at 20:47; Status DC Rocuronium [place] (Zemuron) 50 mg STK-MED ONCE .ROUTE ; Start 12/15/16 at 20:46 ; Stop 12/15/16 at 20:47; Status DC Ondansetron HCl 4 mg 4 mg PRN Q8HRS PRN IV NAUSEA/VOMITING; Start 12/15/16 at 20 :45; Stop 12/15/16 at 23:44; Status DC Sodium Chloride (Iv Sodium Chloride 0.9% 1000ml Bag) 1,000 ml @ 100 mls/hr Q10H IV Last administered on 12/16/16 06:45; Start 12/15/16 at 20:45; Stop 08/22 at 07:25; Status DC Acetaminophen (Tylenol) 650 mg PRN Q4HRS PRN PO FEVER Last administered on 12/16 16:43; Start 12/15/16 at 20:45; Stop 12/16/16 at 20:44; Status DC Etomidate (Amidate) 20 mg 1X ONCE IV Last administered on 12/15/16 19:51; Start 12/15/16 at 20:45; Stop 12/15/16 at 20:53; Status DC Succinylcholine Chloride 100 mg 100 mg 1X ONCE IV Last administered on 19:52; Start 12/15/16 at 20:45; Stop 12/15/16 at 20:53; Status DC Bacitracin/Sodium Chloride (Iv Sodium Chloride 0.9% 1000ml Bag) 1,000 ml @ 1, 000 mls/hr 1X PERIOP ONCE IRR Last administered on 12/15/16 22:05; Start at 21:00; Stop 12/15/16 at 21:59; Status DC Cellulose 1 each STK-MED ONCE .ROUTE Last administered on 12/15/16 22:05; Start 12/15/16 at 20:58; Stop 12/15/16 at 20:59; Status DC Bupivacaine HCl/ Epinephrine Bitart (Sensorcain-Mpf Epi 0.5%-[id number]) 30 ml STK -MED ONCE .ROUTE Last administered on 12/15/16 22:05; Start 12/15/16 at 20:58; Stop 12/15/16 at 20:59; Status DC Gelatin (Gelfoam Size 100) 1 each STK-MED ONCE .ROUTE Last administered on 12/15 22:05; Start 12/15/16 at 20:58; Stop 12/15/16 at 20:59; Status DC Thrombin 17409 unit 20,000 unit STK-MED ONCE TP Last administered on 12/15/16 22:05; Start 12/15/16 at 20:58; Stop 12/15/16 at 20:59; Status DC Propofol (Diprivan) 20 ml @ As Directed STK-MED ONCE IV ; Start 12/15/16 at 21:06 ; Stop 12/15/16 at 21:07; Status DC Desflurane 60 ml 60 ml STK-MED ONCE IH ; Start 12/15/16 at 21:49; Stop 12/15/16 at 21:50; Status DC Cefazolin Sodium/ Dextrose 50 ml @ As Directed STK-MED ONCE IV ; Start 12/15/16 at 21:52; Stop 12/15/16 at 21:53; Status DC Mannitol (Mannitol Iv Soln) 500 ml @ As Directed STK-MED ONCE IV ; Start at 21:53; Stop 12/15/16 at 21:54; Status DC Phenylephrine HCl 1 mg 1 mg STK-MED ONCE IV ; Start 12/15/16 at 21:55; Stop at 21:56; Status DC Levetiracetam/ Sodium Chloride (Keppra/Iv Sodium Chloride 0.9% 100ml) 100 ml @ 400 mls/hr 1X ONCE IV Last administered on 12/15/16 22:30; Start 12/15/16 at 22 :15; Stop 12/15/16 at 22:29; Status DC Ondansetron HCl (Zofran) 4 mg PRN Q6HRS PRN IV Nausea; Start 12/15/16 at 22:30; Stop 12/16/16 at 14:48; Status DC Fentanyl Citrate (Fentanyl 2ml Vial) 25 mcg PRN Q5MIN PRN IV MILD PAIN; Start 12/15/16 at 22:30; Stop 12/16/16 at 13:00; Status DC Fentanyl Citrate (Fentanyl 2ml Vial) 50 mcg PRN Q5MIN PRN IV MODERATE PAIN; Start 12/15/16 at 22:30; Stop 12/16/16 at 13:00; Status DC Morphine Sulfate 1 mg 1 mg PRN Q10MIN PRN IV SEVERE PAIN; Start 12/15/16 at 22: 30; Stop 12/16/16 at 13:08; Status DC Lactated Ringer's (Iv Lactated Ringers) 1,000 ml @ 0 mls/hr Q0M IV ; Start 12/15 at 22:30; Stop 12/16/16 at 13:08; Status DC Lidocaine HCl 2 ml 1X PRN PRN ID IV START; Start 12/15/16 at 22:30; Stop at 13:08; Status DC Hydromorphone HCl (Dilaudid) 0.5 mg PRN Q10MIN PRN IV SEV PAIN,Second choice; Start 12/15/16 at 22:30; Stop 12/16/16 at 13:01; Status DC Prochlorperazine Edisylate 5 mg 5 mg PACU PRN PRN IV NAUSEA; Start 12/15/16 at 22:30; Stop 12/16/16 at 13:08; Status DC Propofol 100 ml @ As Directed STK-MED ONCE IV ; Start 12/15/16 at 23:13; Stop at 23:14; Status DC Nicardipine HCl/ Sodium Chloride (Cardene/Iv Sodium Chloride 0.9% 250ml) 270 ml @ 27 mls/hr TITRATE PRN IV PER PROTOCOL; Start 12/15/16 at 23:30 Diphenhydramine HCl (Benadryl) 25 mg PRN Q6HRS PRN PO ITCHING; Start 12/15/16 at 23:30; Stop 12/19/16 at 12:54; Status DC Diphenhydramine HCl 25 mg 25 mg PRN Q6HRS PRN IV ITCHING; Start 12/15/16 at 23: 30 Levetiracetam/ Sodium Chloride (Keppra/Iv Sodium Chloride 0.9% 100ml) 105 ml @ 400 mls/hr Q12HR IV Last administered on 12/23/16 08:02; Start 12/16/16 at 09: 00 Sodium Chloride (Normal Saline Flush) 3 ml QSHIFT PRN IV AFTER MEDS AND BLOOD DRAWS; Start 12/15/16 at 23:30 Dextrose 12.5 gm PRN Q15MIN PRN IV SEE COMMENTS; Start 12/15/16 at 23:30 Magnesium Hydroxide (Milk Of Magnesia) 2,400 mg PRN Q12HR PRN PO CONSTIPATION; Start 12/15/16 at 23:30 Ondansetron HCl 4 mg 4 mg PRN Q6HRS PRN IV NAUESA, 1ST CHOICE; Start 12/15/16 at 23:30 Cefazolin Sodium 1 gm/Sodium Chloride 50 ml @ 100 mls/hr Q8HRS IV Last administered on 12/16/16 21:05; Start 12/16/16 at 06:00; Stop 12/16/16 at 22:29 ; Status DC Potassium Chloride/Dextrose/ Sod Cl (KCl 20 Meq In D5W-1/2 NS) 1,000 ml @ 75 mls/hr [id number] IV Last administered on 12/18/16 18:18; Start 12/15/16 at 23:30 ; Stop 12/19/16 at 09:48; Status DC Fentanyl Citrate (Fentanyl 2ml Vial) 25 mcg PRN Q1HR PRN IV PAIN Last administered on 12/18/16 12:01; Start 12/15/16 at 23:30 Fentanyl Citrate (Fentanyl 2ml Vial) 50 mcg PRN Q1HR PRN IV PAIN Last administered on 12/23/16 00:12; Start 12/15/16 at 23:30 Info (Do NOT chart on this placeholder) 1 each 1X ONCE MC ; Start 12/16/16 at 04:00; Stop 12/16/16 at 04:01; Status UNV Pneumococcal Polyvalent Vaccine (Do NOT chart on this placeholder) 1 each 1X ONCE MC ; Start 12/16/16 at 04:00; Stop 12/16/16 at 04:01; Status UNV Influenza Virus Vaccine Quadrival (Fluarix Quad [id number] Syringe) 0.5 ml ONCE ONCE VAX IM Last administered on 12/17/16 08:49; Start 12/16/16 at 09:00; Stop 12/16/16 at 09:01; Status DC Pneumococcal Polyvalent Vaccine 0.5 ml 0.5 ml ONCE ONCE VAX IM Last administered on 12/17/16 08:47; Start 12/16/16 at 09:00; Stop 12/16/16 at 09:01 ; Status DC Propofol 100 ml @ 0 mls/hr CONT PRN IV SEE I/O RECORD Last administered on 12/21 02:53; Start 12/16/16 at 04:30 Propofol 100 ml @ 0 mls/hr CONT PRN IV SEE I/O RECORD; Start 12/16/16 at 00:00 ; Stop 12/16/16 at 03:00; Status Cancel Propofol 100 ml @ 0 mls/hr CONT PRN IV SEE I/O RECORD Last administered on 20:00; Start 12/16/16 at 00:00; Stop 12/16/16 at 09:04; Status DC Multivitamins/ Minerals/Thiamine HCl/Folic Acid/ Sodium Chloride (Infuvite Adult / Iv Sodium Chloride 0.9% 1000ml Bag) 1,011.2 ml @ 100 mls/ hr DAILY IV Last administered on 12/22/16 08:31; Start 12/16/16 at 10:00; Stop 12/22/16 at 09:59 ; Status DC Lorazepam (Ativan) 2 mg PRN Q1HR PRN IV For CIWA 8-14 Last administered on 12/21 21:57; Start 12/16/16 at 10:00 Lorazepam (Ativan) 4 mg PRN Q1HR PRN IV For CIWA 15 or greater Last administered on 12/22/16 01:36; Start 12/16/16 at 10:00 Piperacillin Sod/ Tazobactam Sod (Zosyn Per Pharmacy) 1 each PRN DAILY PRN MC SEE COMMENTS; Start 12/16/16 at 10:30; Stop 12/18/16 at 11:54; Status DC Vancomycin HCl 1 each 1 each PRN DAILY PRN MC SEE COMMENTS Last administered on 12/18/16 04:00; Start 12/16/16 at 10:30; Stop 12/18/16 at 11:54; Status DC Vancomycin HCl 1.5 gm/Sodium Chloride 500 ml @ 250 mls/hr 1X ONCE IV Last administered on 12/16/16 14:08; Start 12/16/16 at 11:00; Stop 12/16/16 at 12:59 ; Status DC Piperacillin Sod/ Tazobactam Sod/ Sodium Chloride (Zosyn/Iv Sodium Chloride 0.9 % 100ml) 100 ml @ 200 mls/hr Q6HRS IV Last administered on 12/18/16 05:11; Start 12/16/16 at 12:00; Stop 12/18/16 at 11:54; Status DC Propofol 1000 mg 1,000 mg STK-MED ONCE IV ; Start 12/15/16 at 23:00; Stop at 13:28; Status DC Vancomycin HCl/ Sodium Chloride (Iv Sodium Chloride 0.9% 250ml) 250 ml @ 250 mls/hr Q12H IV Last administered on 12/18/16 02:00; Start 12/17/16 at 02:00; Stop 12/18/16 at 03:45; Status DC Vancomycin HCl 1 each 1X ONCE MC Last administered on 12/18/16 01:30; Start 12/18/16 at 01:30; Stop 12/18/16 at 11:54; Status DC Hydralazine HCl (Apresoline) 10 mg PRN Q4HRS PRN IVP ELEVATED BP, SEE COMMENTS Last administered on 12/22/16 23:49; Start 12/17/16 at 12:15 Potassium Chloride 40 meq 40 meq 1X ONCE PO ; Start 12/17/16 at 18:15; Stop 09/22 at 18:16; Status Cancel Potassium Chloride 50 ml @ 50 mls/hr Q1H IV Last administered on 12/18/16 00: 55; Start 12/17/16 at 19:00; Stop 12/17/16 at 20:59; Status DC Vancomycin HCl/ Sodium Chloride (Iv Sodium Chloride 0.9% 250ml) 250 ml @ 250 mls/hr Q8H IV Last administered on 12/18/16 03:54; Start 12/18/16 at 04:00; Stop 12/18/16 at 11:54; Status DC Vancomycin HCl 1 each 1X ONCE MC ; Start 12/19/16 at 03:30; Stop 12/19/16 at 03 :30; Status DC Budesonide (Pulmicort) 0.5 mg RTBID NEB Last administered on 12/23/16 07:41; Start 12/18/16 at 08:00 Vecuronium [place] 6 mg 6 mg 1X ONCE IV Last administered on 12/18/16 13:09; Start 12/18/16 at 13:00; Stop 12/18/16 at 13:01; Status DC Magnesium Sulfate/ Dextrose 50 ml @ 25 mls/hr 1X ONCE IV Last administered on 12/18/16 15:34; Start 12/18/16 at 15:00; Stop 12/18/16 at 16:59; Status DC Potassium Chloride 100 ml @ 100 mls/hr Q1H IV Last administered on 12/18/16 18:17; Start 12/18/16 at 15:00; Stop 12/18/16 at 18:59; Status DC Cefazolin Sodium 1 gm/Sodium Chloride 50 ml @ 100 mls/hr Q8HRS IV Last administered on 12/22/16 05:34; Start 12/19/16 at 10:00; Stop 12/22/16 at 10:01 ; Status DC Magnesium Sulfate/ Dextrose 50 ml @ 25 mls/hr 1X ONCE IV Last administered on 12/19/16 10:42; Start 12/19/16 at 10:30; Stop 12/19/16 at 12:29; Status DC Sodium Chloride/ Potassium Chloride/ Potassium Phosphate/ Magnesium Sulfate/ Calcium Gluconate/ Multivitamins/ Minerals/Chromium/ Copper/Manganese/ Seleni/Zn /Total Parenteral Nutrition/Amino Acids/Dextrose/ Fat Emulsion Intravenous ( Sodium Chloride/ Potassium Phospha... 87.0013 ml @ 3.625 mls/hr TPN CONT IV ; Start 12/19/16 at 22:00; Stop 12/19/16 at 22:00; Status Cancel Info 1 each 1 each PRN DAILY PRN MC SEE COMMENTS; Start 12/19/16 at 10:00; Stop 12/19/16 at 10:00; Status DC Potassium Chloride (KCl Premix 10meq) 100 ml @ 100 mls/hr Q1H IV Last administered on 12/19/16 20:52; Start 12/19/16 at 11:00; Stop 12/19/16 at 14:59 ; Status DC Acetaminophen (Tylenol) 650 mg PRN Q6HRS PRN PO MILD PAIN / TEMP; Start at 13:45; Status Cancel Acetaminophen 650 mg 650 mg PRN Q6HRS PRN PEG MILD PAIN / TEMP Last administered on 12/23/16 08:18; Start 12/19/16 at 14:00 Potassium Chloride/Sodium Chloride (Iv Sodium Chloride 0.45%) 1,015 ml @ 75 mls /hr [id number] IV Last administered on 12/19/16 21:24; Start 12/19/16 at 21:30; Stop 12/20/16 at 08:48; Status DC Furosemide (Lasix) 20 mg 1X ONCE IVP Last administered on 12/20/16 09:09; Start 12/20/16 at 09:30; Stop 12/20/16 at 09:31; Status DC Iohexol (Omnipaque 300 Mg/ml) 100 ml STK-MED ONCE .ROUTE ; Start 12/20/16 at 16: 17; Stop 12/20/16 at 16:18; Status DC Lidocaine HCl 20 ml 20 ml STK-MED ONCE .ROUTE ; Start 12/20/16 at 16:17; Stop at 16:18; Status DC Heparin Sodium/ Sodium Chloride 500 ml @ As Directed STK-MED ONCE .ROUTE ; Start 12/20/16 at 16:17; Stop 12/20/16 at 16:18; Status DC Heparin Sodium/ Sodium Chloride 1,000 unit 1X ONCE IART Last administered on 16:45; Start 12/20/16 at 16:45; Stop 12/20/16 at 16:46; Status DC Iohexol (Omnipaque 300 Mg/ml) 100 ml 1X ONCE IART Last administered on 16:45; Start 12/20/16 at 16:45; Stop 12/20/16 at 16:46; Status DC Lidocaine HCl 20 ml 1X ONCE IJ Last administered on 12/20/16 16:45; Start at 16:45; Stop 12/20/16 at 16:46; Status DC Furosemide (Lasix) 40 mg 1X ONCE IVP Last administered on 12/21/16 11:35; Start 12/21/16 at 10:15; Stop 12/21/16 at 10:17; Status DC Scopolamine (Transderm-Scop) 1 patch Q3DAYS TD ; Start 12/24/16 at 09:00; Status UNV Atropine Sulfate 1 drop 1 drop PRN Q2HR PRN SL SECRETIONS Last administered on 12/21/16 21:57; Start 12/21/16 at 19:30 Piperacillin Sod/ Tazobactam Sod/ Sodium Chloride (Zosyn/Iv Sodium Chloride 0.9 % 100ml) 100 ml @ 200 mls/hr Q6HRS IV Last administered on 12/23/16 12:51; Start 12/22/16 at 11:00 Piperacillin Sod/ Tazobactam Sod 1 each 1 each PRN DAILY PRN MC SEE COMMENTS; Start 12/22/16 at 10:00; Stop 12/22/16 at 10:12; Status DC Potassium Chloride (KCl Premix 20meq) 50 ml @ 50 mls/hr Q1H IV Last administered on 12/22/16 17:22; Start 12/22/16 at 15:00; Stop 12/22/16 at 16:59 ; Status DC Furosemide (Lasix) 20 mg DAILY IVP Last administered on 12/23/16 08:06; Start 12/22/16 at 15:30; Stop 12/29/16 at 15:29 Vancomycin HCl 1 each 1 each PRN DAILY PRN MC SEE COMMENTS Last administered on 12/23/16 08:18; Start 12/23/16 at 08:15 Vancomycin HCl 1.75 gm/Sodium Chloride 500 ml @ 250 mls/hr 1X ONCE IV Last administered on 12/23/16 11:23; Start 12/23/16 at 08:30; Stop 12/23/16 at 10:29 ; Status DC Vancomycin HCl/ Sodium Chloride (Iv Sodium Chloride 0.9% 250ml) 250 ml @ 250 mls/hr Q8H IV ; Start 12/23/16 at 16:30 Vancomycin HCl 1 each 1 each 1X ONCE MC ; Start 12/24/16 at 08:00; Stop at 08:01 Levofloxacin/ Dextrose (LEVAQUIN 500mg PREMIX) 100 ml @ 100 mls/hr Q24H IV Last administered on 12/23/16 08:59; Start 12/23/16 at 08:30 Iohexol (Omnipaque 240 Mg/ml) 30 ml 1X ONCE PO Last administered on 12/23/16 11:09; Start 12/23/16 at 09:00; Stop 12/23/16 at 09:01; Status DC Iohexol (Omnipaque 300 Mg/ml) 75 ml 1X ONCE IV Last administered on 12/23/16 11:08; Start 12/23/16 at 09:00; Stop 12/23/16 at 09:01; Status DC Pantoprazole Sodium (Protonix Vial) 40 mg DAILYAC IVP Last administered on 12/23 12:53; Start 12/23/16 at 12:00 Active Scripts Active Reported Benazepril Hcl 40 Mg Tablet 1 Tab PO DAILY Amlodipine Besylate 5 Mg Tablet 5 Mg PO DAILY Allergies Allergies: Coded Allergies: No Known Drug Allergies (Unverified , 12/15/16) ROS Review of System Unable to perform, patient intubated and sedated Physical Exam General: Other (intubated sedated) HEENT: Atraumatic Lungs: Other (reduced air entry at the bases bilaterally) Heart: Regular rate, Normal S1, Normal S2 Abdomen: Soft, No tenderness Extremities: No edema Skin: No significant lesion Neuro: Other (unable to perform) MUSCULOSKELETAL: No deformity Vitals VITALS Vital Signs Date Time Temp Pulse Resp B/P Pulse Ox O2 Delivery O2 Flow Rate FiO2 12/23/16 14:00 102 24 149/73 100 Ventilator 12/23/16 12:00 98.9 98.9 Labs Labs Laboratory Tests Test 12/22/16 10:30 12/23/16 05:00 12/23/16 08:00 12/23/16 12:05 Sodium Level 132mmol/L (136-145) 132mmol/L (136-145) Potassium Level 3.0mmol/L (3.5-5.1) 3.9mmol/L (3.5-5.1) Chloride Level 99mmol/L (98-107) 98mmol/L (98-107) Carbon Dioxide Level 28mmol/L (21-32) 25mmol/L (21-32) Anion Gap 5 (6-14) 9 (6-14) Blood Urea Nitrogen 15mg/dL (8-26) 17mg/dL (8-26) Creatinine 0.5mg/dL (0.7-1.3) 0.5mg/dL (0.7-1.3) Estimated GFR (Cockcroft-Gault) 168.5 168.5 Glucose Level 134mg/dL (70-99) 137mg/dL (70-99) Calcium Level 8.2mg/dL (8.5-10.1) 8.6mg/dL (8.5-10.1) White Blood Count 18.3x10^3/uL (4.0-11.0) Red Blood Count 3.38x10^6/uL (4.30-5.70) Hemoglobin 10.9g/dL (13.0-17.5) Hematocrit 32.4% (39.0-53.0) Mean Corpuscular Volume 96fL (79-100) Mean Corpuscular Hemoglobin 32pg (25-35) Mean Corpuscular Hemoglobin Concent 34g/dL (31-37) Red Cell Distribution Width 12.7% (11.5-14.5) Platelet Count 330x10^3/uL (140-400) Neutrophils (%) (Auto) 77% (31-73) Lymphocytes (%) (Auto) 7% (24-48) Monocytes (%) (Auto) 16% (0-9) Eosinophils (%) (Auto) 0% (0-3) Basophils (%) (Auto) 0% (0-3) Neutrophils # (Auto) 14.1x10^3uL (1.8-7.7) Lymphocytes # (Auto) 1.2x10^3/uL (1.0-4.8) Monocytes # (Auto) 2.9x10^3/uL (0.0-1.1) Eosinophils # (Auto) 0.0x10^3/uL (0.0-0.7) Basophils # (Auto) 0.1x10^3/uL (0.0-0.2) Segmented Neutrophils % 75% (35-66) Band Neutrophils % 6% (0-9) Lymphocytes % 8% (24-48) Monocytes % 11% (0-10) Toxic Granulation Present Toxic Vacuolation Present Platelet Estimate Adequate (ADEQUATE) Magnesium Level 1.8mg/dL (1.8-2.4) O2 Saturation 96% (92-99) Arterial Blood pH 7.52 (7.35-7.45) Arterial Blood pCO2 at Patient Temp 30mmHg (35-46) Arterial Blood pO2 at Patient Temp 78mmHg (65-108) Arterial Blood HCO3 24mmol/L (21-28) Arterial Blood Base Excess 2mmol/L (-3-3) FiO2 40 Influenza Type A Antigen Negative (NEGATIVE) Influenza Type B Antigen Negative (NEGATIVE) Laboratory Tests Test 12/23/16 05:00 12/23/16 08:00 12/23/16 12:05 White Blood Count 18.3x10^3/uL (4.0-11.0) Red Blood Count 3.38x10^6/uL (4.30-5.70) Hemoglobin 10.9g/dL (13.0-17.5) Hematocrit 32.4% (39.0-53.0) Mean Corpuscular Volume 96fL (79-100) Mean Corpuscular Hemoglobin 32pg (25-35) Mean Corpuscular Hemoglobin Concent 34g/dL (31-37) Red Cell Distribution Width 12.7% (11.5-14.5) Platelet Count 330x10^3/uL (140-400) Neutrophils (%) (Auto) 77% (31-73) Lymphocytes (%) (Auto) 7% (24-48) Monocytes (%) (Auto) 16% (0-9) Eosinophils (%) (Auto) 0% (0-3) Basophils (%) (Auto) 0% (0-3) Neutrophils # (Auto) 14.1x10^3uL (1.8-7.7) Lymphocytes # (Auto) 1.2x10^3/uL (1.0-4.8) Monocytes # (Auto) 2.9x10^3/uL (0.0-1.1) Eosinophils # (Auto) 0.0x10^3/uL (0.0-0.7) Basophils # (Auto) 0.1x10^3/uL (0.0-0.2) Segmented Neutrophils % 75% (35-66) Band Neutrophils % 6% (0-9) Lymphocytes % 8% (24-48) Monocytes % 11% (0-10) Toxic Granulation Present Toxic Vacuolation Present Platelet Estimate Adequate (ADEQUATE) Sodium Level 132mmol/L (136-145) Potassium Level 3.9mmol/L (3.5-5.1) Chloride Level 98mmol/L (98-107) Carbon Dioxide Level 25mmol/L (21-32) Anion Gap 9 (6-14) Blood Urea Nitrogen 17mg/dL (8-26) Creatinine 0.5mg/dL (0.7-1.3) Estimated GFR (Cockcroft-Gault) 168.5 Glucose Level 137mg/dL (70-99) Calcium Level 8.6mg/dL (8.5-10.1) Magnesium Level 1.8mg/dL (1.8-2.4) O2 Saturation 96% (92-99) Arterial Blood pH 7.52 (7.35-7.45) Arterial Blood pCO2 at Patient Temp 30mmHg (35-46) Arterial Blood pO2 at Patient Temp 78mmHg (65-108) Arterial Blood HCO3 24mmol/L (21-28) Arterial Blood Base Excess 2mmol/L (-3-3) FiO2 40 Influenza Type A Antigen Negative (NEGATIVE) Influenza Type B Antigen Negative (NEGATIVE) Images Images CT chest / abdomen 1. Moderate sized bilateral pleural effusions with moderate underlying atelectasis posteriorly in both lower lobes. 2. Tiny nonspecific right middle lobe pulmonary nodule. 3. Calcific plaquing of the aorta and coronary arteries. 4. Sigmoid diverticulosis. 5. Anasarca. 6. An inferior vena cava filter is in place. Assessment/Plan Assessment/Plan 61-year-old male, status post emergent craniotomy for a frontal intracerebral hemorrhage a week ago. I had a long discussion with the patient's family and explained the benefits of a tracheostomy, which include: reduced risk of pneumonia, rapid weaning from the ventilator, reduced ICU and hospital stay, improve patient comfort and possible quicker neurologic recovery. I also explained the risks. The patient's family agree to proceed. Plan for tracheostomy on Monday, December 26, 2016. Hold tube feeds after midnight on Monday Type and TENISHA Villalobos MD Dec 23, 2016 15:35
--- NOTE | 2016-12-23 16:40 | PDOC ---
PROGRESS NOTES Subjective Subjective sitting up in bed remains intubated sedation off intermittently follows commands per RN Objective Objective Vital Signs Date Time Temp Pulse Resp B/P Pulse Ox O2 Delivery O2 Flow Rate FiO2 12/23/16 16:00 101.2 96 18 132/75 100 Ventilator 101.2 Intake and Output 12/23/16 07:00 Intake Total 3874 ml Output Total 2875 ml Balance 999 ml IV Total 1927 ml Tube Feeding 1686 ml Other 261 ml Output Urine Total 2875 ml # Bowel Movements 2 Physical Exam General: Other MUSCULOSKELETAL: Other (Moving extremities) Assessment Assessment Problems Medical Problems: (1) Intraparenchymal hematoma of brain Status: Acute Plan Plan of Care scheduled for monday wean from vent as tolerated Comment Review of Relevant I have reviewed the following items jose alfredo (where applicable) has been applied. Labs Laboratory Tests Test 12/22/16 10:30 12/23/16 05:00 12/23/16 08:00 12/23/16 12:05 Sodium Level 132mmol/L (136-145) 132mmol/L (136-145) Potassium Level 3.0mmol/L (3.5-5.1) 3.9mmol/L (3.5-5.1) Chloride Level 99mmol/L (98-107) 98mmol/L (98-107) Carbon Dioxide Level 28mmol/L (21-32) 25mmol/L (21-32) Anion Gap 5 (6-14) 9 (6-14) Blood Urea Nitrogen 15mg/dL (8-26) 17mg/dL (8-26) Creatinine 0.5mg/dL (0.7-1.3) 0.5mg/dL (0.7-1.3) Estimated GFR (Cockcroft-Gault) 168.5 168.5 Glucose Level 134mg/dL (70-99) 137mg/dL (70-99) Calcium Level 8.2mg/dL (8.5-10.1) 8.6mg/dL (8.5-10.1) White Blood Count 18.3x10^3/uL (4.0-11.0) Red Blood Count 3.38x10^6/uL (4.30-5.70) Hemoglobin 10.9g/dL (13.0-17.5) Hematocrit 32.4% (39.0-53.0) Mean Corpuscular Volume 96fL (79-100) Mean Corpuscular Hemoglobin 32pg (25-35) Mean Corpuscular Hemoglobin Concent 34g/dL (31-37) Red Cell Distribution Width 12.7% (11.5-14.5) Platelet Count 330x10^3/uL (140-400) Neutrophils (%) (Auto) 77% (31-73) Lymphocytes (%) (Auto) 7% (24-48) Monocytes (%) (Auto) 16% (0-9) Eosinophils (%) (Auto) 0% (0-3) Basophils (%) (Auto) 0% (0-3) Neutrophils # (Auto) 14.1x10^3uL (1.8-7.7) Lymphocytes # (Auto) 1.2x10^3/uL (1.0-4.8) Monocytes # (Auto) 2.9x10^3/uL (0.0-1.1) Eosinophils # (Auto) 0.0x10^3/uL (0.0-0.7) Basophils # (Auto) 0.1x10^3/uL (0.0-0.2) Segmented Neutrophils % 75% (35-66) Band Neutrophils % 6% (0-9) Lymphocytes % 8% (24-48) Monocytes % 11% (0-10) Toxic Granulation Present Toxic Vacuolation Present Platelet Estimate Adequate (ADEQUATE) Magnesium Level 1.8mg/dL (1.8-2.4) O2 Saturation 96% (92-99) Arterial Blood pH 7.52 (7.35-7.45) Arterial Blood pCO2 at Patient Temp 30mmHg (35-46) Arterial Blood pO2 at Patient Temp 78mmHg (65-108) Arterial Blood HCO3 24mmol/L (21-28) Arterial Blood Base Excess 2mmol/L (-3-3) FiO2 40 Influenza Type A Antigen Negative (NEGATIVE) Influenza Type B Antigen Negative (NEGATIVE) Laboratory Tests Test 12/23/16 05:00 12/23/16 08:00 12/23/16 12:05 White Blood Count 18.3x10^3/uL (4.0-11.0) Red Blood Count 3.38x10^6/uL (4.30-5.70) Hemoglobin 10.9g/dL (13.0-17.5) Hematocrit 32.4% (39.0-53.0) Mean Corpuscular Volume 96fL (79-100) Mean Corpuscular Hemoglobin 32pg (25-35) Mean Corpuscular Hemoglobin Concent 34g/dL (31-37) Red Cell Distribution Width 12.7% (11.5-14.5) Platelet Count 330x10^3/uL (140-400) Neutrophils (%) (Auto) 77% (31-73) Lymphocytes (%) (Auto) 7% (24-48) Monocytes (%) (Auto) 16% (0-9) Eosinophils (%) (Auto) 0% (0-3) Basophils (%) (Auto) 0% (0-3) Neutrophils # (Auto) 14.1x10^3uL (1.8-7.7) Lymphocytes # (Auto) 1.2x10^3/uL (1.0-4.8) Monocytes # (Auto) 2.9x10^3/uL (0.0-1.1) Eosinophils # (Auto) 0.0x10^3/uL (0.0-0.7) Basophils # (Auto) 0.1x10^3/uL (0.0-0.2) Segmented Neutrophils % 75% (35-66) Band Neutrophils % 6% (0-9) Lymphocytes % 8% (24-48) Monocytes % 11% (0-10) Toxic Granulation Present Toxic Vacuolation Present Platelet Estimate Adequate (ADEQUATE) Sodium Level 132mmol/L (136-145) Potassium Level 3.9mmol/L (3.5-5.1) Chloride Level 98mmol/L (98-107) Carbon Dioxide Level 25mmol/L (21-32) Anion Gap 9 (6-14) Blood Urea Nitrogen 17mg/dL (8-26) Creatinine 0.5mg/dL (0.7-1.3) Estimated GFR (Cockcroft-Gault) 168.5 Glucose Level 137mg/dL (70-99) Calcium Level 8.6mg/dL (8.5-10.1) Magnesium Level 1.8mg/dL (1.8-2.4) O2 Saturation 96% (92-99) Arterial Blood pH 7.52 (7.35-7.45) Arterial Blood pCO2 at Patient Temp 30mmHg (35-46) Arterial Blood pO2 at Patient Temp 78mmHg (65-108) Arterial Blood HCO3 24mmol/L (21-28) Arterial Blood Base Excess 2mmol/L (-3-3) FiO2 40 Influenza Type A Antigen Negative (NEGATIVE) Influenza Type B Antigen Negative (NEGATIVE) Medications Current Medications Multivitamins/ Minerals/Folic Acid/Thiamine HCl/ Sodium Chloride (Infuvite Adult / Iv Sodium Chloride 0.9% 1000ml Bag) 1,011.2 ml @ 1,000 mls/ hr 1X ONCE IV Last administered on 12/15/16 18:53; Start 12/15/16 at 18:45; Stop 12/15/16 at 19: 45; Status DC Ondansetron HCl 4 mg 4 mg 1X ONCE IV ; Start 12/15/16 at 18:45; Stop 12/15/16 at 18:46; Status DC Propofol 0 ml @ As Directed STK-MED ONCE IV ; Start 12/15/16 at 19:57; Stop at 19:58; Status DC Propofol (Diprivan) 50 ml @ As Directed STK-MED ONCE IV ; Start 12/15/16 at 19:57 ; Stop 12/15/16 at 19:58; Status DC Lidocaine HCl 100 mg STK-MED ONCE .ROUTE ; Start 12/15/16 at 20:45; Stop 12/15/16 at 20:46; Status DC Fentanyl Citrate (Fentanyl 2ml Vial) 100 mcg STK-MED ONCE .ROUTE ; Start at 20:46; Stop 12/15/16 at 20:47; Status DC Rocuronium [place] (Zemuron) 50 mg STK-MED ONCE .ROUTE ; Start 12/15/16 at 20:46 ; Stop 12/15/16 at 20:47; Status DC Ondansetron HCl 4 mg 4 mg PRN Q8HRS PRN IV NAUSEA/VOMITING; Start 12/15/16 at 20 :45; Stop 12/15/16 at 23:44; Status DC Sodium Chloride (Iv Sodium Chloride 0.9% 1000ml Bag) 1,000 ml @ 100 mls/hr Q10H IV Last administered on 12/16/16 06:45; Start 12/15/16 at 20:45; Stop 08/22 at 07:25; Status DC Acetaminophen (Tylenol) 650 mg PRN Q4HRS PRN PO FEVER Last administered on 12/16 16:43; Start 12/15/16 at 20:45; Stop 12/16/16 at 20:44; Status DC Etomidate (Amidate) 20 mg 1X ONCE IV Last administered on 12/15/16 19:51; Start 12/15/16 at 20:45; Stop 12/15/16 at 20:53; Status DC Succinylcholine Chloride 100 mg 100 mg 1X ONCE IV Last administered on 19:52; Start 12/15/16 at 20:45; Stop 12/15/16 at 20:53; Status DC Bacitracin/Sodium Chloride (Iv Sodium Chloride 0.9% 1000ml Bag) 1,000 ml @ 1, 000 mls/hr 1X PERIOP ONCE IRR Last administered on 12/15/16 22:05; Start at 21:00; Stop 12/15/16 at 21:59; Status DC Cellulose 1 each STK-MED ONCE .ROUTE Last administered on 12/15/16 22:05; Start 12/15/16 at 20:58; Stop 12/15/16 at 20:59; Status DC Bupivacaine HCl/ Epinephrine Bitart (Sensorcain-Mpf Epi 0.5%-[id number]) 30 ml STK -MED ONCE .ROUTE Last administered on 12/15/16 22:05; Start 12/15/16 at 20:58; Stop 12/15/16 at 20:59; Status DC Gelatin (Gelfoam Size 100) 1 each STK-MED ONCE .ROUTE Last administered on 12/15 22:05; Start 12/15/16 at 20:58; Stop 12/15/16 at 20:59; Status DC Thrombin 30845 unit 20,000 unit STK-MED ONCE TP Last administered on 12/15/16 22:05; Start 12/15/16 at 20:58; Stop 12/15/16 at 20:59; Status DC Propofol (Diprivan) 20 ml @ As Directed STK-MED ONCE IV ; Start 12/15/16 at 21:06 ; Stop 12/15/16 at 21:07; Status DC Desflurane 60 ml 60 ml STK-MED ONCE IH ; Start 12/15/16 at 21:49; Stop 12/15/16 at 21:50; Status DC Cefazolin Sodium/ Dextrose 50 ml @ As Directed STK-MED ONCE IV ; Start 12/15/16 at 21:52; Stop 12/15/16 at 21:53; Status DC Mannitol (Mannitol Iv Soln) 500 ml @ As Directed STK-MED ONCE IV ; Start at 21:53; Stop 12/15/16 at 21:54; Status DC Phenylephrine HCl 1 mg 1 mg STK-MED ONCE IV ; Start 12/15/16 at 21:55; Stop at 21:56; Status DC Levetiracetam/ Sodium Chloride (Keppra/Iv Sodium Chloride 0.9% 100ml) 100 ml @ 400 mls/hr 1X ONCE IV Last administered on 12/15/16t 22:30; Start 12/15/16 at 22 :15; Stop 12/15/16 at 22:29; Status DC Ondansetron HCl (Zofran) 4 mg PRN Q6HRS PRN IV Nausea; Start 12/15/16 at 22:30; Stop 12/16/16 at 14:48; Status DC Fentanyl Citrate (Fentanyl 2ml Vial) 25 mcg PRN Q5MIN PRN IV MILD PAIN; Start 12/15/16 at 22:30; Stop 12/16/16 at 13:00; Status DC Fentanyl Citrate (Fentanyl 2ml Vial) 50 mcg PRN Q5MIN PRN IV MODERATE PAIN; Start 12/15/16 at 22:30; Stop 12/16/16 at 13:00; Status DC Morphine Sulfate 1 mg 1 mg PRN Q10MIN PRN IV SEVERE PAIN; Start 12/15/16 at 22: 30; Stop 12/16/16 at 13:08; Status DC Lactated Ringer's (Iv Lactated Ringers) 1,000 ml @ 0 mls/hr Q0M IV ; Start 12/15 at 22:30; Stop 12/16/16 at 13:08; Status DC Lidocaine HCl 2 ml 1X PRN PRN ID IV START; Start 12/15/16 at 22:30; Stop at 13:08; Status DC Hydromorphone HCl (Dilaudid) 0.5 mg PRN Q10MIN PRN IV SEV PAIN,Second choice; Start 12/15/16 at 22:30; Stop 12/16/16 at 13:01; Status DC Prochlorperazine Edisylate 5 mg 5 mg PACU PRN PRN IV NAUSEA; Start 12/15/16 at 22:30; Stop 12/16/16 at 13:08; Status DC Propofol 100 ml @ As Directed STK-MED ONCE IV ; Start 12/15/16 at 23:13; Stop at 23:14; Status DC Nicardipine HCl/ Sodium Chloride (Cardene/Iv Sodium Chloride 0.9% 250ml) 270 ml @ 27 mls/hr TITRATE PRN IV PER PROTOCOL; Start 12/15/16 at 23:30 Diphenhydramine HCl (Benadryl) 25 mg PRN Q6HRS PRN PO ITCHING; Start 12/15/16 at 23:30; Stop 12/19/16 at 12:54; Status DC Diphenhydramine HCl 25 mg 25 mg PRN Q6HRS PRN IV ITCHING; Start 12/15/16 at 23: 30 Levetiracetam/ Sodium Chloride (Keppra/Iv Sodium Chloride 0.9% 100ml) 105 ml @ 400 mls/hr Q12HR IV Last administered on 12/23/16 08:02; Start 12/16/16 at 09: 00 Sodium Chloride (Normal Saline Flush) 3 ml QSHIFT PRN IV AFTER MEDS AND BLOOD DRAWS; Start 12/15/16 at 23:30 Dextrose 12.5 gm PRN Q15MIN PRN IV SEE COMMENTS; Start 12/15/16 at 23:30 Magnesium Hydroxide (Milk Of Magnesia) 2,400 mg PRN Q12HR PRN PO CONSTIPATION; Start 12/15/16 at 23:30 Ondansetron HCl 4 mg 4 mg PRN Q6HRS PRN IV NAUESA, 1ST CHOICE; Start 12/15/16 at 23:30 Cefazolin Sodium 1 gm/Sodium Chloride 50 ml @ 100 mls/hr Q8HRS IV Last administered on 12/16/16t 21:05; Start 12/16/16 at 06:00; Stop 12/16/16 at 22:29 ; Status DC Potassium Chloride/Dextrose/ Sod Cl (KCl 20 Meq In D5W-1/2 NS) 1,000 ml @ 75 mls/hr [id number] IV Last administered on 12/18/16 18:18; Start 12/15/16 at 23:30 ; Stop 12/19/16 at 09:48; Status DC Fentanyl Citrate (Fentanyl 2ml Vial) 25 mcg PRN Q1HR PRN IV PAIN Last administered on 12/18/16 12:01; Start 12/15/16 at 23:30 Fentanyl Citrate (Fentanyl 2ml Vial) 50 mcg PRN Q1HR PRN IV PAIN Last administered on 12/23/16 00:12; Start 12/15/16 at 23:30 Info (Do NOT chart on this placeholder) 1 each 1X ONCE MC ; Start 12/16/16 at 04:00; Stop 12/16/16 at 04:01; Status UNV Pneumococcal Polyvalent Vaccine (Do NOT chart on this placeholder) 1 each 1X ONCE MC ; Start 12/16/16 at 04:00; Stop 12/16/16 at 04:01; Status UNV Influenza Virus Vaccine Quadrival (Fluarix Quad [id number] Syringe) 0.5 ml ONCE ONCE VAX IM Last administered on 12/17/16 08:49; Start 12/16/16 at 09:00; Stop 12/16/16 at 09:01; Status DC Pneumococcal Polyvalent Vaccine 0.5 ml 0.5 ml ONCE ONCE VAX IM Last administered on 12/17/16 08:47; Start 12/16/16 at 09:00; Stop 12/16/16 at 09:01 ; Status DC Propofol 100 ml @ 0 mls/hr CONT PRN IV SEE I/O RECORD Last administered on 12/21 02:53; Start 12/16/16 at 04:30 Propofol 100 ml @ 0 mls/hr CONT PRN IV SEE I/O RECORD; Start 12/16/16 at 00:00 ; Stop 12/16/16 at 03:00; Status Cancel Propofol 100 ml @ 0 mls/hr CONT PRN IV SEE I/O RECORD Last administered on 20:00; Start 12/16/16 at 00:00; Stop 12/16/16 at 09:04; Status DC Multivitamins/ Minerals/Thiamine HCl/Folic Acid/ Sodium Chloride (Infuvite Adult / Iv Sodium Chloride 0.9% 1000ml Bag) 1,011.2 ml @ 100 mls/ hr DAILY IV Last administered on 12/22/16 08:31; Start 12/16/16 at 10:00; Stop 12/22/16 at 09:59 ; Status DC Lorazepam (Ativan) 2 mg PRN Q1HR PRN IV For CIWA 8-14 Last administered on 12/21 21:57; Start 12/16/16 at 10:00 Lorazepam (Ativan) 4 mg PRN Q1HR PRN IV For CIWA 15 or greater Last administered on 12/22/16 01:36; Start 12/16/16 at 10:00 Piperacillin Sod/ Tazobactam Sod (Zosyn Per Pharmacy) 1 each PRN DAILY PRN MC SEE COMMENTS; Start 12/16/16 at 10:30; Stop 12/18/16 at 11:54; Status DC Vancomycin HCl 1 each 1 each PRN DAILY PRN MC SEE COMMENTS Last administered on 12/18/16 04:00; Start 12/16/16 at 10:30; Stop 12/18/16 at 11:54; Status DC Vancomycin HCl 1.5 gm/Sodium Chloride 500 ml @ 250 mls/hr 1X ONCE IV Last administered on 12/16/16 14:08; Start 12/16/16 at 11:00; Stop 12/16/16 at 12:59 ; Status DC Piperacillin Sod/ Tazobactam Sod/ Sodium Chloride (Zosyn/Iv Sodium Chloride 0.9 % 100ml) 100 ml @ 200 mls/hr Q6HRS IV Last administered on 12/18/16 05:11; Start 12/16/16 at 12:00; Stop 12/18/16 at 11:54; Status DC Propofol 1000 mg 1,000 mg STK-MED ONCE IV ; Start 12/15/16 at 23:00; Stop at 13:28; Status DC Vancomycin HCl/ Sodium Chloride (Iv Sodium Chloride 0.9% 250ml) 250 ml @ 250 mls/hr Q12H IV Last administered on 12/18/16 02:00; Start 12/17/16 at 02:00; Stop 12/18/16 at 03:45; Status DC Vancomycin HCl 1 each 1X ONCE MC Last administered on 12/18/16 01:30; Start 12/18/16 at 01:30; Stop 12/18/16 at 11:54; Status DC Hydralazine HCl (Apresoline) 10 mg PRN Q4HRS PRN IVP ELEVATED BP, SEE COMMENTS Last administered on 12/22/16 23:49; Start 12/17/16 at 12:15 Potassium Chloride 40 meq 40 meq 1X ONCE PO ; Start 12/17/16 at 18:15; Stop 09/22 at 18:16; Status Cancel Potassium Chloride 50 ml @ 50 mls/hr Q1H IV Last administered on 12/18/16 00: 55; Start 12/17/16 at 19:00; Stop 12/17/16 at 20:59; Status DC Vancomycin HCl/ Sodium Chloride (Iv Sodium Chloride 0.9% 250ml) 250 ml @ 250 mls/hr Q8H IV Last administered on 12/18/16 03:54; Start 12/18/16 at 04:00; Stop 12/18/16 at 11:54; Status DC Vancomycin HCl 1 each 1X ONCE MC ; Start 12/19/16 at 03:30; Stop 12/19/16 at 03 :30; Status DC Budesonide (Pulmicort) 0.5 mg RTBID NEB Last administered on 12/23/16 07:41; Start 12/18/16 at 08:00 Vecuronium [place] 6 mg 6 mg 1X ONCE IV Last administered on 12/18/16 13:09; Start 12/18/16 at 13:00; Stop 12/18/16 at 13:01; Status DC Magnesium Sulfate/ Dextrose 50 ml @ 25 mls/hr 1X ONCE IV Last administered on 12/18/16 15:34; Start 12/18/16 at 15:00; Stop 12/18/16 at 16:59; Status DC Potassium Chloride 100 ml @ 100 mls/hr Q1H IV Last administered on 12/18/16 18:17; Start 12/18/16 at 15:00; Stop 12/18/16 at 18:59; Status DC Cefazolin Sodium 1 gm/Sodium Chloride 50 ml @ 100 mls/hr Q8HRS IV Last administered on 12/22/16 05:34; Start 12/19/16 at 10:00; Stop 12/22/16 at 10:01 ; Status DC Magnesium Sulfate/ Dextrose 50 ml @ 25 mls/hr 1X ONCE IV Last administered on 12/19/16 10:42; Start 12/19/16 at 10:30; Stop 12/19/16 at 12:29; Status DC Sodium Chloride/ Potassium Chloride/ Potassium Phosphate/ Magnesium Sulfate/ Calcium Gluconate/ Multivitamins/ Minerals/Chromium/ Copper/Manganese/ Seleni/Zn /Total Parenteral Nutrition/Amino Acids/Dextrose/ Fat Emulsion Intravenous ( Sodium Chloride/ Potassium Phospha... 87.0013 ml @ 3.625 mls/hr TPN CONT IV ; Start 12/19/16 at 22:00; Stop 12/19/16 at 22:00; Status Cancel Info 1 each 1 each PRN DAILY PRN MC SEE COMMENTS; Start 12/19/16 at 10:00; Stop 12/19/16 at 10:00; Status DC Potassium Chloride (KCl Premix 10meq) 100 ml @ 100 mls/hr Q1H IV Last administered on 12/19/16 20:52; Start 12/19/16 at 11:00; Stop 12/19/16 at 14:59 ; Status DC Acetaminophen (Tylenol) 650 mg PRN Q6HRS PRN PO MILD PAIN / TEMP; Start at 13:45; Status Cancel Acetaminophen 650 mg 650 mg PRN Q6HRS PRN PEG MILD PAIN / TEMP Last administered on 12/23/16 15:35; Start 12/19/16 at 14:00 Potassium Chloride/Sodium Chloride (Iv Sodium Chloride 0.45%) 1,015 ml @ 75 mls /hr [id number] IV Last administered on 12/19/16 21:24; Start 12/19/16 at 21:30; Stop 12/20/16 at 08:48; Status DC Furosemide (Lasix) 20 mg 1X ONCE IVP Last administered on 12/20/16 09:09; Start 12/20/16 at 09:30; Stop 12/20/16 at 09:31; Status DC Iohexol (Omnipaque 300 Mg/ml) 100 ml STK-MED ONCE .ROUTE ; Start 12/20/16 at 16: 17; Stop 12/20/16 at 16:18; Status DC Lidocaine HCl 20 ml 20 ml STK-MED ONCE .ROUTE ; Start 12/20/16 at 16:17; Stop at 16:18; Status DC Heparin Sodium/ Sodium Chloride 500 ml @ As Directed STK-MED ONCE .ROUTE ; Start 12/20/16 at 16:17; Stop 12/20/16 at 16:18; Status DC Heparin Sodium/ Sodium Chloride 1,000 unit 1X ONCE IART Last administered on 16:45; Start 12/20/16 at 16:45; Stop 12/20/16 at 16:46; Status DC Iohexol (Omnipaque 300 Mg/ml) 100 ml 1X ONCE IART Last administered on 16:45; Start 12/20/16 at 16:45; Stop 12/20/16 at 16:46; Status DC Lidocaine HCl 20 ml 1X ONCE IJ Last administered on 12/20/16 16:45; Start at 16:45; Stop 12/20/16 at 16:46; Status DC Furosemide (Lasix) 40 mg 1X ONCE IVP Last administered on 12/21/16 11:35; Start 12/21/16 at 10:15; Stop 12/21/16 at 10:17; Status DC Scopolamine (Transderm-Scop) 1 patch Q3DAYS TD ; Start 12/24/16 at 09:00; Status UNV Atropine Sulfate 1 drop 1 drop PRN Q2HR PRN SL SECRETIONS Last administered on 12/21/16 21:57; Start 12/21/16 at 19:30 Piperacillin Sod/ Tazobactam Sod/ Sodium Chloride (Zosyn/Iv Sodium Chloride 0.9 % 100ml) 100 ml @ 200 mls/hr Q6HRS IV Last administered on 12/23/16 12:51; Start 12/22/16 at 11:00 Piperacillin Sod/ Tazobactam Sod 1 each 1 each PRN DAILY PRN MC SEE COMMENTS; Start 12/22/16 at 10:00; Stop 12/22/16 at 10:12; Status DC Potassium Chloride (KCl Premix 20meq) 50 ml @ 50 mls/hr Q1H IV Last administered on 12/22/16 17:22; Start 12/22/16 at 15:00; Stop 12/22/16 at 16:59 ; Status DC Furosemide (Lasix) 20 mg DAILY IVP Last administered on 12/23/16 08:06; Start 12/22/16 at 15:30; Stop 12/29/16 at 15:29 Vancomycin HCl 1 each 1 each PRN DAILY PRN MC SEE COMMENTS Last administered on 12/23/16 08:18; Start 12/23/16 at 08:15 Vancomycin HCl 1.75 gm/Sodium Chloride 500 ml @ 250 mls/hr 1X ONCE IV Last administered on 12/23/16 11:23; Start 12/23/16 at 08:30; Stop 12/23/16 at 10:29 ; Status DC Vancomycin HCl/ Sodium Chloride (Iv Sodium Chloride 0.9% 250ml) 250 ml @ 250 mls/hr Q8H IV Last administered on 12/23/16 15:35; Start 12/23/16 at 16:30 Vancomycin HCl 1 each 1 each 1X ONCE MC ; Start 12/24/16 at 08:00; Stop at 08:01 Levofloxacin/ Dextrose (LEVAQUIN 500mg PREMIX) 100 ml @ 100 mls/hr Q24H IV Last administered on 12/23/16 08:59; Start 12/23/16 at 08:30 Iohexol (Omnipaque 240 Mg/ml) 30 ml 1X ONCE PO Last administered on 12/23/16 11:09; Start 12/23/16 at 09:00; Stop 12/23/16 at 09:01; Status DC Iohexol (Omnipaque 300 Mg/ml) 75 ml 1X ONCE IV Last administered on 12/23/16 11:08; Start 12/23/16 at 09:00; Stop 12/23/16 at 09:01; Status DC Pantoprazole Sodium (Protonix Vial) 40 mg DAILYAC IVP Last administered on 12/23 12:53; Start 12/23/16 at 12:00 Active Scripts Active Reported Benazepril Hcl 40 Mg Tablet 1 Tab PO DAILY Amlodipine Besylate 5 Mg Tablet 5 Mg PO DAILY Vitals/I & O Vital Sign - Last 24 Hours 2/16/12/22/16 12/22/16 12/22/16 17:00 17:01 18:00 19:00 Temp 100.6 100.6 Pulse 100 98 87 Resp 24 21 20 B/P 138/83 139/91 147/83 Pulse Ox 99 99 97 99 O2 Delivery Ventilator Ventilator Ventilator Ventilator 12/22/16 12/22/16 12/22/16 12/22/16 19:39 20:00 20:00 20:00 Temp 101.0 101.0 Pulse 100 Resp 23 B/P 159/91 Pulse Ox 100 100 O2 Delivery Ventilator Ventilator Mechanical Ventilator 12/22/16 12/22/16 12/22/16 12/22/16 21:00 22:00 23:00 23:35 Pulse 102 88 114 Resp 24 18 25 B/P 153/98 144/84 166/97 Pulse Ox 98 100 98 99 O2 Delivery Ventilator Ventilator Ventilator Ventilator 12/22/16 12/23/16 12/23/16 12/23/16 23:49 00:00 00:00 00:12 Temp 100.6 100.6 Pulse 110 86 Resp 19 23 B/P 166/97 134/85 Pulse Ox 99 99 O2 Delivery Ventilator Mechanical Ventilator Ventilator 12/23/16 12/23/16 12/23/16 12/23/16 01:00 01:00 01:42 02:00 Pulse 92 84 Resp 23 23 19 B/P 114/70 123/58 Pulse Ox 98 98 99 100 O2 Delivery Ventilator Ventilator Ventilator Ventilator 12/23/16 12/23/16 12/23/16 12/23/16 03:00 03:49 04:00 04:00 Temp 100.9 100.9 Pulse 93 97 Resp 22 18 B/P 128/66 132/68 Pulse Ox 99 99 100 O2 Delivery Ventilator Ventilator Mechanical Ventilator Ventilator 12/23/16 12/23/16 12/23/16 12/23/16 05:00 05:25 06:00 07:00 Pulse 97 101 104 Resp 20 23 22 B/P 147/73 141/80 156/89 Pulse Ox 100 99 100 99 O2 Delivery Ventilator Ventilator Ventilator Ventilator 12/23/16 12/23/16 12/23/16 12/23/16 07:41 08:00 08:00 09:00 Temp 101.4 101.4 Pulse 94 80 Resp 18 17 B/P 142/72 107/59 Pulse Ox 100 100 98 O2 Delivery Ventilator Ventilator Mechanical Ventilator Ventilator 12/23/16 12/23/16 12/23/16 12/23/16 10:00 10:11 11:00 12:00 Temp 98.9 98.9 Pulse 78 102 82 Resp 18 23 18 B/P 125/67 147/98 111/65 Pulse Ox 100 100 100 98 O2 Delivery Ventilator Ventilator Ventilator Ventilator 12/23/16 12/23/16 12/23/16 12/23/16 12:00 12:12 13:00 14:00 Pulse 86 102 Resp 18 24 B/P 129/73 149/73 Pulse Ox 100 100 100 O2 Delivery Mechanical Ventilator Ventilator Ventilator Ventilator 12/23/16 12/23/16 12/23/16 12/23/16 15:00 15:24 16:00 16:00 Temp 101.7 101.2 101.7 101.2 Pulse 94 96 Resp 20 18 B/P 143/76 132/75 Pulse Ox 100 100 100 O2 Delivery Ventilator Ventilator Mechanical Ventilator Ventilator Intake and Output 12/22/16 12/22/16 12/23/16 15:00 23:00 07:00 Intake Total 255 ml 255 ml 3364 ml Output Total 595 ml 1900 ml 380 ml Balance -340 ml -1645 ml 2984 ml ELA DUARTE APRN Dec 23, 2016 16:40
[2016-12-24] VITALS (24 sets, daily range): BP systolic 101–164; BP diastolic 52–93
[2016-12-24] MEDS: VANCOMYCIN 1 GM in IV NORMAL SALINE 250ML 250 ML IV SCH ×2 (00:45→08:30)
[2016-12-24] MEDS: FENTANYL PF 100 MCG/2 ML VIAL. IV PRN ×5 (02:12→23:13)
[2016-12-24] MEDS: PIPERACILLIN/TAZOBACTAM 4.5 GM in IV NORMAL SALINE 100ML 100 ML IV SCH ×3 (06:03→18:11)
[2016-12-24] MEDS: ACETAMINOPHEN 650 MG/20.3 ML SOLUTION. PEG PRN ×2 (06:03→19:59)
--- NOTE | 2016-12-24 06:29 | PDOC ---
PULMONARY PROGRESS NOTES Subjective PT OFF SEDATION AWAKE AT TIMES, doesnt follow my commands RN REPORTS PT FOLLOW SOME COMMANDS large secretion Vitals Vital Signs Date Time Temp Pulse Resp B/P Pulse Ox O2 Delivery O2 Flow Rate FiO2 12/24/16 06:00 101.4 75 105/56 100 Ventilator 101.4 12/24/16 05:41 17 Comments ros as mentioned as above, discussed w rn, other sys otherwise neg lymphatics no lap HEENT: Other (s/p crani, perrl, orally intubated, nose clear. ) Lungs: Crackles Cardiovascular: S1, S2 Abdomen: Soft, Non-tender, Other (no mass) Extremities: No Edema Skin: Warm Labs Laboratory Tests Test 12/22/16 10:30 12/23/16 05:00 12/23/16 08:00 12/23/16 11:50 Sodium Level 132mmol/L (136-145) 132mmol/L (136-145) Potassium Level 3.0mmol/L (3.5-5.1) 3.9mmol/L (3.5-5.1) Chloride Level 99mmol/L (98-107) 98mmol/L (98-107) Carbon Dioxide Level 28mmol/L (21-32) 25mmol/L (21-32) Anion Gap 5 (6-14) 9 (6-14) Blood Urea Nitrogen 15mg/dL (8-26) 17mg/dL (8-26) Creatinine 0.5mg/dL (0.7-1.3) 0.5mg/dL (0.7-1.3) Estimated GFR (Cockcroft-Gault) 168.5 168.5 Glucose Level 134mg/dL (70-99) 137mg/dL (70-99) Calcium Level 8.2mg/dL (8.5-10.1) 8.6mg/dL (8.5-10.1) White Blood Count 18.3x10^3/uL (4.0-11.0) Red Blood Count 3.38x10^6/uL (4.30-5.70) Hemoglobin 10.9g/dL (13.0-17.5) Hematocrit 32.4% (39.0-53.0) Mean Corpuscular Volume 96fL (79-100) Mean Corpuscular Hemoglobin 32pg (25-35) Mean Corpuscular Hemoglobin Concent 34g/dL (31-37) Red Cell Distribution Width 12.7% (11.5-14.5) Platelet Count 330x10^3/uL (140-400) Neutrophils (%) (Auto) 77% (31-73) Lymphocytes (%) (Auto) 7% (24-48) Monocytes (%) (Auto) 16% (0-9) Eosinophils (%) (Auto) 0% (0-3) Basophils (%) (Auto) 0% (0-3) Neutrophils # (Auto) 14.1x10^3uL (1.8-7.7) Lymphocytes # (Auto) 1.2x10^3/uL (1.0-4.8) Monocytes # (Auto) 2.9x10^3/uL (0.0-1.1) Eosinophils # (Auto) 0.0x10^3/uL (0.0-0.7) Basophils # (Auto) 0.1x10^3/uL (0.0-0.2) Segmented Neutrophils % 75% (35-66) Band Neutrophils % 6% (0-9) Lymphocytes % 8% (24-48) Monocytes % 11% (0-10) Toxic Granulation Present Toxic Vacuolation Present Platelet Estimate Adequate (ADEQUATE) Magnesium Level 1.8mg/dL (1.8-2.4) O2 Saturation 96% (92-99) Arterial Blood pH 7.52 (7.35-7.45) Arterial Blood pCO2 at Patient Temp 30mmHg (35-46) Arterial Blood pO2 at Patient Temp 78mmHg (65-108) Arterial Blood HCO3 24mmol/L (21-28) Arterial Blood Base Excess 2mmol/L (-3-3) FiO2 40 Procalcitonin 0.15ng/mL (0.00-0.10) Test 12/23/16 12:05 Influenza Type A Antigen Negative (NEGATIVE) Influenza Type B Antigen Negative (NEGATIVE) Laboratory Tests Test 12/23/16 08:00 12/23/16 11:50 12/23/16 12:05 O2 Saturation 96% (92-99) Arterial Blood pH 7.52 (7.35-7.45) Arterial Blood pCO2 at Patient Temp 30mmHg (35-46) Arterial Blood pO2 at Patient Temp 78mmHg (65-108) Arterial Blood HCO3 24mmol/L (21-28) Arterial Blood Base Excess 2mmol/L (-3-3) FiO2 40 Procalcitonin 0.15ng/mL (0.00-0.10) Influenza Type A Antigen Negative (NEGATIVE) Influenza Type B Antigen Negative (NEGATIVE) Medications Active Scripts Medications Dose Route/Sig Days Date Category Benazepril Hcl 40 Mg Tablet 1 Tab PO DAILY 12/16/16 Reported Amlodipine Besylate 5 Mg Tablet 5 Mg PO DAILY 12/16/16 Reported Comments CXR MILD CONGESTION Impression . IMPRESSION: 1. Acute respiratory failure secondary ICH 2. 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 3. Underlying chronic obstructive pulmonary disease, unknown FEV1, smoked for 40 years. 4. Underlying alcoholism. 5. EDEMA 6. Fever may be central 7. Nutrition per tube feeding 8. S/P ICV filter 9. ABNORMAL CXR COMPATIBLE WITH FLUID OVERLOAD Plan . WILL MAINTAIN OFF SEDATION, TRACH ON MONDAY PEG NEEDED CXR IS BETTER WITH LASIX FEVER PERSIST I THINK THIS IS CENTRAL CT ABD AND PELVIS REPORT NOTED PRN VERSED, FENTANYL LASIX DAILY , MONITOR CR, K S/P IVC CONTINUE THE SAME FOR NOW discussed w EMERALD Tobar MD Dec 24, 2016 06:29
--- NOTE | 2016-12-24 06:49 | PDOC ---
Infectious Disease Note Subjective Subjective Intubated/sedated ROS ROS Unobtainable Vital Sign Vital Signs Vital Signs Date Time Temp Pulse Resp B/P Pulse Ox O2 Delivery O2 Flow Rate FiO2 12/24/16 06:00 101.4 75 105/56 100 Ventilator 101.4 12/24/16 05:41 17 Physical Exam PHYSICAL EXAM GENERAL: NAD, Intubated HEENT: PERRL, sluggish, OC/OP - ETT NECK: Supple, no JVD, no LN LUNGS: Clear HEART: S1S2, no gallop, no murmur ABD: Soft, NT, no organomegaly, no rebound Liu EXT: No edema, no cyanosis MUSIC AGENT: Sedated SKIN: No rash. Incision is clean IV: PICC - Clean Labs Lab Laboratory Tests Test 12/23/16 08:00 12/23/16 11:50 12/23/16 12:05 O2 Saturation 96% (92-99) Arterial Blood pH 7.52 (7.35-7.45) Arterial Blood pCO2 at Patient Temp 30mmHg (35-46) Arterial Blood pO2 at Patient Temp 78mmHg (65-108) Arterial Blood HCO3 24mmol/L (21-28) Arterial Blood Base Excess 2mmol/L (-3-3) FiO2 40 Procalcitonin 0.15ng/mL (0.00-0.10) Influenza Type A Antigen Negative (NEGATIVE) Influenza Type B Antigen Negative (NEGATIVE) Objective Assessment Fever - Vanc/Zosy/Levoflox started 12/23. Procalcitonin - min elevation. CT head mild residual effect 12/22 some mucosal thickening. F/u neg Leukocytosis ICH - s/p evac 12/15 Respiratory failure - intubated. Mod sized pleural effusion and IVC ETOH COPD Plan Plan of Care F/u labs in am and cults Cont vanc/Levoflox and zosyn for now MARISOL SHANKAR MD Dec 24, 2016 06:49
[2016-12-24 06:55] LABS: BASO # 0.1 x10^3/uL (0.0-0.2); BASO % 0 % (0-3); EOS % 1 % (0-3); HEMATOCRIT 26.6 % (39.0-53.0); HEMOGLOBIN 9.1 g/dL (13.0-17.5); LYMPH # 0.7 x10^3/uL (1.0-4.8); LYMPH % 5 % (24-48); MEAN CORPUSCULAR HEMOGLOBIN 33 pg (25-35); MEAN CORPUSCULAR HGB CONC 34 g/dL (31-37); MEAN CORPUSCULAR VOLUME 95 fL (79-100); MONO % 10 % (0-9); NEUT % 84 % (31-73); PLATELET COUNT 308 x10^3/uL (140-400); RED CELL DISTRIBUTION WIDTH 12.7 % (11.5-14.5); WHITE BLOOD COUNT 14.2 x10^3/uL (4.0-11.0)
[2016-12-24 07:08] LABS: CALCIUM 8.1 mg/dL (8.5-10.1); CREATININE 0.6 mg/dL (0.7-1.3); GFR 136.5; POTASSIUM 3.2 mmol/L (3.5-5.1)
[2016-12-24] MEDS: BUDESONIDE 0.5 MG/2 ML NEBU NEB SCH ×2 (08:15→19:45)
[2016-12-24] MEDS: PANTOPRAZOLE IV PUSH 40 MG VIAL. IVP SCH (08:15)
[2016-12-24] MEDS: FUROSEMIDE 20 MG/2 ML VIAL IVP SCH (08:57)
[2016-12-24] MEDS ORDERED: SCOPOLAMINE 1.5MG PATCH. TD SCH (09:00)
[2016-12-24] MEDS: LEVETIRACETAM 500 MG in IV NORMAL SALINE 100ML 100 ML IV SCH ×2 (09:04→20:00)
--- NOTE | 2016-12-24 09:36 | RAD ---
Indication respiratory failure. A single view of the chest was obtained and is compared to an examination one day earlier. Endotracheal tube is appropriately positioned above the rico. A right PICC line is noted. Nasogastric tube has its tip beyond the proximal body of the stomach. There are probable mild changes of congestive heart failure. There is some increasing volume loss at the left lung base likely reflecting pleural fluid with associated atelectasis. Underlying pneumonia is not entirely excluded. IMPRESSION: Appropriately positioned support tubes and catheters. Suspect mild pulmonary vascular congestion. Increasing left pleural fluid
[2016-12-24] MEDS: VANCOMYCIN PER PHARMACY MC PRN ×2 (09:40→09:45)
[2016-12-24 09:48] LABS: HCO3 ABG 22 mmol/L (21-28); PCO2 ABG 30 mmHg (35-46); PH ABG 7.49 (7.35-7.45); PO2 ABG 77 mmHg (65-108); SAT O2 ABG 95 % (92-99)
[2016-12-24 09:51] LABS: FIO2 ABG 40
[2016-12-24] MEDS: POTASSIUM CHLORIDE 20MEQ 50 ML IV SCH ×2 (10:36→15:36)
[2016-12-24] MEDS: VANCOMYCIN 1.25 GM in IV NORMAL SALINE 250ML 250 ML IV SCH ×2 (10:36→18:10)
[2016-12-24 13:17] LABS: HCO3 ABG 27 mmol/L (21-28); PCO2 ABG 34 mmHg (35-46); PH ABG 7.52 (7.35-7.45); PO2 ABG 96 mmHg (65-108); SAT O2 ABG 97 % (92-99)
--- NOTE | 2016-12-24 13:26 | PDOC ---
PROGRESS NOTES Chief Complaint Chief Complaint cc: ams A/P Right frontal craniotomy with evacuation of intracerebral hematoma and placement of external ventricular drain in the right lateral ventricle.POD 5 Alcohol abuse Respiratory failure on Mechanical ventilation Elective Hyponatremia fever 2/2 intracranial hemarrhage vs. asp PNA IVC filter Plan On mechanical ventilation, off sedation, SBT ok, but not waking up totally CIWA protocol for alcohol withdrawal precaution Keppra for seizure precautions BP goal < SBP 130 GI prophylaxis NO dvt prophylaxis Tube feeds, dc ivf, lasix 40mg x1, now lasix 20mg daily, replete K family at bedside, all questions answered off sedation IVC filter for PE prevention as per neurosx on 12/[address] repeat 12/22/16 better now on zosyn, vanco, levaquin with ID, bcx neg trach , PEG on Monday i talked to neurosx, no intervention now, will need repeat Head CT next WEEK, maybe , then contact him for removal of head slava pt may dc to select post trach and PEG. History of Present Illness History of Present Illness intubated. off sedation for >3ds failed wean trial yesterday with tachycardia and HTN 2 days ago, better now, but not waking up enough fever, secretion + more responding than yesterday CT better Vitals Vitals Vital Signs Date Time Temp Pulse Resp B/P Pulse Ox O2 Delivery O2 Flow Rate FiO2 12/24/16 11:51 100 Ventilator 12/24/16 08:46 17 12/24/16 06:00 101.4 75 105/56 101.4 Physical Exam Physical Exam intubated, off sedation for 2 days, can wig toes, but not really waking up General: Other Heart: Regular rate, Normal S1, Normal S2 Lungs: Crackles Abdomen: Soft, No tenderness Extremities: No edema Skin: No significant lesion Labs LABS Laboratory Tests Test 12/24/16 06:10 12/24/16 08:00 12/24/16 08:05 White Blood Count 14.2x10^3/uL (4.0-11.0) Red Blood Count 2.80x10^6/uL (4.30-5.70) Hemoglobin 9.1g/dL (13.0-17.5) Hematocrit 26.6% (39.0-53.0) Mean Corpuscular Volume 95fL (79-100) Mean Corpuscular Hemoglobin 33pg (25-35) Mean Corpuscular Hemoglobin Concent 34g/dL (31-37) Red Cell Distribution Width 12.7% (11.5-14.5) Platelet Count 308x10^3/uL (140-400) Neutrophils (%) (Auto) 84% (31-73) Lymphocytes (%) (Auto) 5% (24-48) Monocytes (%) (Auto) 10% (0-9) Eosinophils (%) (Auto) 1% (0-3) Basophils (%) (Auto) 0% (0-3) Neutrophils # (Auto) 11.9x10^3uL (1.8-7.7) Lymphocytes # (Auto) 0.7x10^3/uL (1.0-4.8) Monocytes # (Auto) 1.4x10^3/uL (0.0-1.1) Eosinophils # (Auto) 0.1x10^3/uL (0.0-0.7) Basophils # (Auto) 0.1x10^3/uL (0.0-0.2) Sodium Level 130mmol/L (136-145) Potassium Level 3.2mmol/L (3.5-5.1) Chloride Level 95mmol/L (98-107) Carbon Dioxide Level 28mmol/L (21-32) Anion Gap 7 (6-14) Blood Urea Nitrogen 17mg/dL (8-26) Creatinine 0.6mg/dL (0.7-1.3) Estimated GFR (Cockcroft-Gault) 136.5 Glucose Level 126mg/dL (70-99) Calcium Level 8.1mg/dL (8.5-10.1) O2 Saturation 95% (92-99) Arterial Blood pH 7.49 (7.35-7.45) Arterial Blood pCO2 at Patient Temp 30mmHg (35-46) Arterial Blood pO2 at Patient Temp 77mmHg (65-108) Arterial Blood HCO3 22mmol/L (21-28) Arterial Blood Base Excess 0mmol/L (-3-3) FiO2 40 Vancomycin Level Trough 10.3mcg/mL (10.0-20.0) Vancomycin Last Dose Date 12/23/16 Vancomycin Last Dose Time 2200 Review of Systems Review of Systems no fever, chills, Assessment and Plan Assessmemt and Plan Problems Medical Problems: (1) Intraparenchymal hematoma of brain Status: Acute Problems: Comment Review of Relevant I have reviewed the following items jose alfredo (where applicable) has been applied. Labs Laboratory Tests Test 12/23/16 05:00 12/23/16 08:00 12/23/16 11:50 12/23/16 12:05 White Blood Count 18.3x10^3/uL (4.0-11.0) Red Blood Count 3.38x10^6/uL (4.30-5.70) Hemoglobin 10.9g/dL (13.0-17.5) Hematocrit 32.4% (39.0-53.0) Mean Corpuscular Volume 96fL (79-100) Mean Corpuscular Hemoglobin 32pg (25-35) Mean Corpuscular Hemoglobin Concent 34g/dL (31-37) Red Cell Distribution Width 12.7% (11.5-14.5) Platelet Count 330x10^3/uL (140-400) Neutrophils (%) (Auto) 77% (31-73) Lymphocytes (%) (Auto) 7% (24-48) Monocytes (%) (Auto) 16% (0-9) Eosinophils (%) (Auto) 0% (0-3) Basophils (%) (Auto) 0% (0-3) Neutrophils # (Auto) 14.1x10^3uL (1.8-7.7) Lymphocytes # (Auto) 1.2x10^3/uL (1.0-4.8) Monocytes # (Auto) 2.9x10^3/uL (0.0-1.1) Eosinophils # (Auto) 0.0x10^3/uL (0.0-0.7) Basophils # (Auto) 0.1x10^3/uL (0.0-0.2) Segmented Neutrophils % 75% (35-66) Band Neutrophils % 6% (0-9) Lymphocytes % 8% (24-48) Monocytes % 11% (0-10) Toxic Granulation Present Toxic Vacuolation Present Platelet Estimate Adequate (ADEQUATE) Sodium Level 132mmol/L (136-145) Potassium Level 3.9mmol/L (3.5-5.1) Chloride Level 98mmol/L (98-107) Carbon Dioxide Level 25mmol/L (21-32) Anion Gap 9 (6-14) Blood Urea Nitrogen 17mg/dL (8-26) Creatinine 0.5mg/dL (0.7-1.3) Estimated GFR (Cockcroft-Gault) 168.5 Glucose Level 137mg/dL (70-99) Calcium Level 8.6mg/dL (8.5-10.1) Magnesium Level 1.8mg/dL (1.8-2.4) O2 Saturation 96% (92-99) Arterial Blood pH 7.52 (7.35-7.45) Arterial Blood pCO2 at Patient Temp 30mmHg (35-46) Arterial Blood pO2 at Patient Temp 78mmHg (65-108) Arterial Blood HCO3 24mmol/L (21-28) Arterial Blood Base Excess 2mmol/L (-3-3) FiO2 40 Procalcitonin 0.15ng/mL (0.00-0.10) Influenza Type A Antigen Negative (NEGATIVE) Influenza Type B Antigen Negative (NEGATIVE) Test 12/24/16 06:10 12/24/16 08:00 12/24/16 08:05 White Blood Count 14.2x10^3/uL (4.0-11.0) Red Blood Count 2.80x10^6/uL (4.30-5.70) Hemoglobin 9.1g/dL (13.0-17.5) Hematocrit 26.6% (39.0-53.0) Mean Corpuscular Volume 95fL (79-100) Mean Corpuscular Hemoglobin 33pg (25-35) Mean Corpuscular Hemoglobin Concent 34g/dL (31-37) Red Cell Distribution Width 12.7% (11.5-14.5) Platelet Count 308x10^3/uL (140-400) Neutrophils (%) (Auto) 84% (31-73) Lymphocytes (%) (Auto) 5% (24-48) Monocytes (%) (Auto) 10% (0-9) Eosinophils (%) (Auto) 1% (0-3) Basophils (%) (Auto) 0% (0-3) Neutrophils # (Auto) 11.9x10^3uL (1.8-7.7) Lymphocytes # (Auto) 0.7x10^3/uL (1.0-4.8) Monocytes # (Auto) 1.4x10^3/uL (0.0-1.1) Eosinophils # (Auto) 0.1x10^3/uL (0.0-0.7) Basophils # (Auto) 0.1x10^3/uL (0.0-0.2) Sodium Level 130mmol/L (136-145) Potassium Level 3.2mmol/L (3.5-5.1) Chloride Level 95mmol/L (98-107) Carbon Dioxide Level 28mmol/L (21-32) Anion Gap 7 (6-14) Blood Urea Nitrogen 17mg/dL (8-26) Creatinine 0.6mg/dL (0.7-1.3) Estimated GFR (Cockcroft-Gault) 136.5 Glucose Level 126mg/dL (70-99) Calcium Level 8.1mg/dL (8.5-10.1) O2 Saturation 95% (92-99) Arterial Blood pH 7.49 (7.35-7.45) Arterial Blood pCO2 at Patient Temp 30mmHg (35-46) Arterial Blood pO2 at Patient Temp 77mmHg (65-108) Arterial Blood HCO3 22mmol/L (21-28) Arterial Blood Base Excess 0mmol/L (-3-3) FiO2 40 Vancomycin Level Trough 10.3mcg/mL (10.0-20.0) Vancomycin Last Dose Date 12/23/16 Vancomycin Last Dose Time 2200 Laboratory Tests Test 12/24/16 06:10 12/24/16 08:00 12/24/16 08:05 White Blood Count 14.2x10^3/uL (4.0-11.0) Red Blood Count 2.80x10^6/uL (4.30-5.70) Hemoglobin 9.1g/dL (13.0-17.5) Hematocrit 26.6% (39.0-53.0) Mean Corpuscular Volume 95fL (79-100) Mean Corpuscular Hemoglobin 33pg (25-35) Mean Corpuscular Hemoglobin Concent 34g/dL (31-37) Red Cell Distribution Width 12.7% (11.5-14.5) Platelet Count 308x10^3/uL (140-400) Neutrophils (%) (Auto) 84% (31-73) Lymphocytes (%) (Auto) 5% (24-48) Monocytes (%) (Auto) 10% (0-9) Eosinophils (%) (Auto) 1% (0-3) Basophils (%) (Auto) 0% (0-3) Neutrophils # (Auto) 11.9x10^3uL (1.8-7.7) Lymphocytes # (Auto) 0.7x10^3/uL (1.0-4.8) Monocytes # (Auto) 1.4x10^3/uL (0.0-1.1) Eosinophils # (Auto) 0.1x10^3/uL (0.0-0.7) Basophils # (Auto) 0.1x10^3/uL (0.0-0.2) Sodium Level 130mmol/L (136-145) Potassium Level 3.2mmol/L (3.5-5.1) Chloride Level 95mmol/L (98-107) Carbon Dioxide Level 28mmol/L (21-32) Anion Gap 7 (6-14) Blood Urea Nitrogen 17mg/dL (8-26) Creatinine 0.6mg/dL (0.7-1.3) Estimated GFR (Cockcroft-Gault) 136.5 Glucose Level 126mg/dL (70-99) Calcium Level 8.1mg/dL (8.5-10.1) O2 Saturation 95% (92-99) Arterial Blood pH 7.49 (7.35-7.45) Arterial Blood pCO2 at Patient Temp 30mmHg (35-46) Arterial Blood pO2 at Patient Temp 77mmHg (65-108) Arterial Blood HCO3 22mmol/L (21-28) Arterial Blood Base Excess 0mmol/L (-3-3) FiO2 40 Vancomycin Level Trough 10.3mcg/mL (10.0-20.0) Vancomycin Last Dose Date 12/23/16 Vancomycin Last Dose Time 2200 Microbiology 12/23/16 Blood Culture - Preliminary, Resulted NO GROWTH AFTER 1 DAY Medications Current Medications Multivitamins/ Minerals/Folic Acid/Thiamine HCl/ Sodium Chloride (Infuvite Adult / Iv Sodium Chloride 0.9% 1000ml Bag) 1,011.2 ml @ 1,000 mls/ hr 1X ONCE IV Last administered on 12/15/16 18:53; Start 12/15/16 at 18:45; Stop 12/15/16 at 19: 45; Status DC Ondansetron HCl 4 mg 4 mg 1X ONCE IV ; Start 12/15/16 at 18:45; Stop 12/15/16 at 18:46; Status DC Propofol 0 ml @ As Directed STK-MED ONCE IV ; Start 12/15/16 at 19:57; Stop at 19:58; Status DC Propofol (Diprivan) 50 ml @ As Directed STK-MED ONCE IV ; Start 12/15/16 at 19:57 ; Stop 12/15/16 at 19:58; Status DC Lidocaine HCl 100 mg STK-MED ONCE .ROUTE ; Start 12/15/16 at 20:45; Stop 12/15/16 at 20:46; Status DC Fentanyl Citrate (Fentanyl 2ml Vial) 100 mcg STK-MED ONCE .ROUTE ; Start at 20:46; Stop 12/15/16 at 20:47; Status DC Rocuronium Calhoun (Zemuron) 50 mg STK-MED ONCE .ROUTE ; Start 12/15/16 at 20:46 ; Stop 12/15/16 at 20:47; Status DC Ondansetron HCl 4 mg 4 mg PRN Q8HRS PRN IV NAUSEA/VOMITING; Start 12/15/16 at 20 :45; Stop 12/15/16 at 23:44; Status DC Sodium Chloride (Iv Sodium Chloride 0.9% 1000ml Bag) 1,000 ml @ 100 mls/hr Q10H IV Last administered on 12/16/16 06:45; Start 12/15/16 at 20:45; Stop 08/22 at 07:25; Status DC Acetaminophen (Tylenol) 650 mg PRN Q4HRS PRN PO FEVER Last administered on 12/16 16:43; Start 12/15/16 at 20:45; Stop 12/16/16 at 20:44; Status DC Etomidate (Amidate) 20 mg 1X ONCE IV Last administered on 12/15/16 19:51; Start 12/15/16 at 20:45; Stop 12/15/16 at 20:53; Status DC Succinylcholine Chloride 100 mg 100 mg 1X ONCE IV Last administered on 19:52; Start 12/15/16 at 20:45; Stop 12/15/16 at 20:53; Status DC Bacitracin/Sodium Chloride (Iv Sodium Chloride 0.9% 1000ml Bag) 1,000 ml @ 1, 000 mls/hr 1X PERIOP ONCE IRR Last administered on 12/15/16 22:05; Start at 21:00; Stop 12/15/16 at 21:59; Status DC Cellulose 1 each STK-MED ONCE .ROUTE Last administered on 12/15/16 22:05; Start 12/15/16 at 20:58; Stop 12/15/16 at 20:59; Status DC Bupivacaine HCl/ Epinephrine Bitart (Sensorcain-Mpf Epi 0.5%-1:[id number]) 30 ml STK -MED ONCE .ROUTE Last administered on 12/15/16 22:05; Start 12/15/16 at 20:58; Stop 12/15/16 at 20:59; Status DC Gelatin (Gelfoam Size 100) 1 each STK-MED ONCE .ROUTE Last administered on 12/15 22:05; Start 12/15/16 at 20:58; Stop 12/15/16 at 20:59; Status DC Thrombin 47934 unit 20,000 unit STK-MED ONCE TP Last administered on 12/15/16 22:05; Start 12/15/16 at 20:58; Stop 12/15/16 at 20:59; Status DC Propofol (Diprivan) 20 ml @ As Directed STK-MED ONCE IV ; Start 12/15/16 at 21:06 ; Stop 12/15/16 at 21:07; Status DC Desflurane 60 ml 60 ml STK-MED ONCE IH ; Start 12/15/16 at 21:49; Stop 12/15/16 at 21:50; Status DC Cefazolin Sodium/ Dextrose 50 ml @ As Directed STK-MED ONCE IV ; Start 12/15/16 at 21:52; Stop 12/15/16 at 21:53; Status DC Mannitol (Mannitol Iv Soln) 500 ml @ As Directed STK-MED ONCE IV ; Start at 21:53; Stop 12/15/16 at 21:54; Status DC Phenylephrine HCl 1 mg 1 mg STK-MED ONCE IV ; Start 12/15/16 at 21:55; Stop at 21:56; Status DC Levetiracetam/ Sodium Chloride (Keppra/Iv Sodium Chloride 0.9% 100ml) 100 ml @ 400 mls/hr 1X ONCE IV Last administered on 12/15/16t 22:30; Start 12/15/16 at 22 :15; Stop 12/15/16 at 22:29; Status DC Ondansetron HCl (Zofran) 4 mg PRN Q6HRS PRN IV Nausea; Start 12/15/16 at 22:30; Stop 12/16/16 at 14:48; Status DC Fentanyl Citrate (Fentanyl 2ml Vial) 25 mcg PRN Q5MIN PRN IV MILD PAIN; Start 12/15/16 at 22:30; Stop 12/16/16 at 13:00; Status DC Fentanyl Citrate (Fentanyl 2ml Vial) 50 mcg PRN Q5MIN PRN IV MODERATE PAIN; Start 12/15/16 at 22:30; Stop 12/16/16 at 13:00; Status DC Morphine Sulfate 1 mg 1 mg PRN Q10MIN PRN IV SEVERE PAIN; Start 12/15/16 at 22: 30; Stop 12/16/16 at 13:08; Status DC Lactated Ringer's (Iv Lactated Ringers) 1,000 ml @ 0 mls/hr Q0M IV ; Start 12/15 at 22:30; Stop 12/16/16 at 13:08; Status DC Lidocaine HCl 2 ml 1X PRN PRN ID IV START; Start 12/15/16 at 22:30; Stop at 13:08; Status DC Hydromorphone HCl (Dilaudid) 0.5 mg PRN Q10MIN PRN IV SEV PAIN,Second choice; Start 12/15/16 at 22:30; Stop 12/16/16 at 13:01; Status DC Prochlorperazine Edisylate 5 mg 5 mg PACU PRN PRN IV NAUSEA; Start 12/15/16 at 22:30; Stop 12/16/16 at 13:08; Status DC Propofol 100 ml @ As Directed STK-MED ONCE IV ; Start 12/15/16 at 23:13; Stop at 23:14; Status DC Nicardipine HCl/ Sodium Chloride (Cardene/Iv Sodium Chloride 0.9% 250ml) 270 ml @ 27 mls/hr TITRATE PRN IV PER PROTOCOL; Start 12/15/16 at 23:30 Diphenhydramine HCl (Benadryl) 25 mg PRN Q6HRS PRN PO ITCHING; Start 12/15/16 at 23:30; Stop 12/19/16 at 12:54; Status DC Diphenhydramine HCl 25 mg 25 mg PRN Q6HRS PRN IV ITCHING; Start 12/15/16 at 23: 30 Levetiracetam/ Sodium Chloride (Keppra/Iv Sodium Chloride 0.9% 100ml) 105 ml @ 400 mls/hr Q12HR IV Last administered on 12/24/16 09:04; Start 12/16/16 at 09: 00 Sodium Chloride (Normal Saline Flush) 3 ml QSHIFT PRN IV AFTER MEDS AND BLOOD DRAWS; Start 12/15/16 at 23:30 Dextrose 12.5 gm PRN Q15MIN PRN IV SEE COMMENTS; Start 12/15/16 at 23:30 Magnesium Hydroxide (Milk Of Magnesia) 2,400 mg PRN Q12HR PRN PO CONSTIPATION; Start 12/15/16 at 23:30 Ondansetron HCl 4 mg 4 mg PRN Q6HRS PRN IV NAUESA, 1ST CHOICE; Start 12/15/16 at 23:30 Cefazolin Sodium 1 gm/Sodium Chloride 50 ml @ 100 mls/hr Q8HRS IV Last administered on 12/16/16 21:05; Start 12/16/16 at 06:00; Stop 12/16/16 at 22:29 ; Status DC Potassium Chloride/Dextrose/ Sod Cl (KCl 20 Meq In D5W-1/2 NS) 1,000 ml @ 75 mls/hr [id number] IV Last administered on 12/18/16 18:18; Start 12/15/16 at 23:30 ; Stop 12/19/16 at 09:48; Status DC Fentanyl Citrate (Fentanyl 2ml Vial) 25 mcg PRN Q1HR PRN IV PAIN Last administered on 12/24/16 08:16; Start 12/15/16 at 23:30 Fentanyl Citrate (Fentanyl 2ml Vial) 50 mcg PRN Q1HR PRN IV PAIN Last administered on 12/24/16 05:11; Start 12/15/16 at 23:30 Info (Do NOT chart on this placeholder) 1 each 1X ONCE MC ; Start 12/16/16 at 04:00; Stop 12/16/16 at 04:01; Status UNV Pneumococcal Polyvalent Vaccine (Do NOT chart on this placeholder) 1 each 1X ONCE MC ; Start 12/16/16 at 04:00; Stop 12/16/16 at 04:01; Status UNV Influenza Virus Vaccine Quadrival (Fluarix Quad [id number] Syringe) 0.5 ml ONCE ONCE VAX IM Last administered on 12/17/16 08:49; Start 12/16/16 at 09:00; Stop 12/16/16 at 09:01; Status DC Pneumococcal Polyvalent Vaccine 0.5 ml 0.5 ml ONCE ONCE VAX IM Last administered on 12/17/16 08:47; Start 12/16/16 at 09:00; Stop 12/16/16 at 09:01 ; Status DC Propofol 100 ml @ 0 mls/hr CONT PRN IV SEE I/O RECORD Last administered on 12/21 02:53; Start 12/16/16 at 04:30 Propofol 100 ml @ 0 mls/hr CONT PRN IV SEE I/O RECORD; Start 12/16/16 at 00:00 ; Stop 12/16/16 at 03:00; Status Cancel Propofol 100 ml @ 0 mls/hr CONT PRN IV SEE I/O RECORD Last administered on 20:00; Start 12/16/16 at 00:00; Stop 12/16/16 at 09:04; Status DC Multivitamins/ Minerals/Thiamine HCl/Folic Acid/ Sodium Chloride (Infuvite Adult / Iv Sodium Chloride 0.9% 1000ml Bag) 1,011.2 ml @ 100 mls/ hr DAILY IV Last administered on 12/22/16 08:31; Start 12/16/16 at 10:00; Stop 12/22/16 at 09:59 ; Status DC Lorazepam (Ativan) 2 mg PRN Q1HR PRN IV For CIWA 8-14 Last administered on 12/21 21:57; Start 12/16/16 at 10:00; Stop 12/23/16 at 19:01; Status DC Lorazepam (Ativan) 4 mg PRN Q1HR PRN IV For CIWA 15 or greater Last administered on 12/22/16 01:36; Start 12/16/16 at 10:00; Stop 12/23/16 at 19:01 ; Status DC Piperacillin Sod/ Tazobactam Sod (Zosyn Per Pharmacy) 1 each PRN DAILY PRN MC SEE COMMENTS; Start 12/16/16 at 10:30; Stop 12/18/16 at 11:54; Status DC Vancomycin HCl 1 each 1 each PRN DAILY PRN MC SEE COMMENTS Last administered on 12/18/16 04:00; Start 12/16/16 at 10:30; Stop 12/18/16 at 11:54; Status DC Vancomycin HCl 1.5 gm/Sodium Chloride 500 ml @ 250 mls/hr 1X ONCE IV Last administered on 12/16/16 14:08; Start 12/16/16 at 11:00; Stop 12/16/16 at 12:59 ; Status DC Piperacillin Sod/ Tazobactam Sod/ Sodium Chloride (Zosyn/Iv Sodium Chloride 0.9 % 100ml) 100 ml @ 200 mls/hr Q6HRS IV Last administered on 12/18/16 05:11; Start 12/16/16 at 12:00; Stop 12/18/16 at 11:54; Status DC Propofol 1000 mg 1,000 mg STK-MED ONCE IV ; Start 12/15/16 at 23:00; Stop at 13:28; Status DC Vancomycin HCl/ Sodium Chloride (Iv Sodium Chloride 0.9% 250ml) 250 ml @ 250 mls/hr Q12H IV Last administered on 12/18/16 02:00; Start 12/17/16 at 02:00; Stop 12/18/16 at 03:45; Status DC Vancomycin HCl 1 each 1X ONCE MC Last administered on 12/18/16 01:30; Start 12/18/16 at 01:30; Stop 12/18/16 at 11:54; Status DC Hydralazine HCl (Apresoline) 10 mg PRN Q4HRS PRN IVP ELEVATED BP, SEE COMMENTS Last administered on 12/22/16 23:49; Start 12/17/16 at 12:15 Potassium Chloride 40 meq 40 meq 1X ONCE PO ; Start 12/17/16 at 18:15; Stop 09/22 at 18:16; Status Cancel Potassium Chloride 50 ml @ 50 mls/hr Q1H IV Last administered on 12/18/16 00: 55; Start 12/17/16 at 19:00; Stop 12/17/16 at 20:59; Status DC Vancomycin HCl/ Sodium Chloride (Iv Sodium Chloride 0.9% 250ml) 250 ml @ 250 mls/hr Q8H IV Last administered on 12/18/16 03:54; Start 12/18/16 at 04:00; Stop 12/18/16 at 11:54; Status DC Vancomycin HCl 1 each 1X ONCE MC ; Start 12/19/16 at 03:30; Stop 12/19/16 at 03 :30; Status DC Budesonide (Pulmicort) 0.5 mg RTBID NEB Last administered on 12/24/16 08:15; Start 12/18/16 at 08:00 Vecuronium Calhoun 6 mg 6 mg 1X ONCE IV Last administered on 12/18/16 13:09; Start 12/18/16 at 13:00; Stop 12/18/16 at 13:01; Status DC Magnesium Sulfate/ Dextrose 50 ml @ 25 mls/hr 1X ONCE IV Last administered on 12/18/16 15:34; Start 12/18/16 at 15:00; Stop 12/18/16 at 16:59; Status DC Potassium Chloride 100 ml @ 100 mls/hr Q1H IV Last administered on 12/18/16 18:17; Start 12/18/16 at 15:00; Stop 12/18/16 at 18:59; Status DC Cefazolin Sodium 1 gm/Sodium Chloride 50 ml @ 100 mls/hr Q8HRS IV Last administered on 12/22/16 05:34; Start 12/19/16 at 10:00; Stop 12/22/16 at 10:01 ; Status DC Magnesium Sulfate/ Dextrose 50 ml @ 25 mls/hr 1X ONCE IV Last administered on 12/19/16 10:42; Start 12/19/16 at 10:30; Stop 12/19/16 at 12:29; Status DC Sodium Chloride/ Potassium Chloride/ Potassium Phosphate/ Magnesium Sulfate/ Calcium Gluconate/ Multivitamins/ Minerals/Chromium/ Copper/Manganese/ Seleni/Zn /Total Parenteral Nutrition/Amino Acids/Dextrose/ Fat Emulsion Intravenous ( Sodium Chloride/ Potassium Phospha... 87.0013 ml @ 3.625 mls/hr TPN CONT IV ; Start 12/19/16 at 22:00; Stop 12/19/16 at 22:00; Status Cancel Info 1 each 1 each PRN DAILY PRN MC SEE COMMENTS; Start 12/19/16 at 10:00; Stop 12/19/16 at 10:00; Status DC Potassium Chloride (KCl Premix 10meq) 100 ml @ 100 mls/hr Q1H IV Last administered on 12/19/16 20:52; Start 12/19/16 at 11:00; Stop 12/19/16 at 14:59 ; Status DC Acetaminophen (Tylenol) 650 mg PRN Q6HRS PRN PO MILD PAIN / TEMP; Start at 13:45; Status Cancel Acetaminophen 650 mg 650 mg PRN Q6HRS PRN PEG MILD PAIN / TEMP Last administered on 12/24/16 06:03; Start 12/19/16 at 14:00 Potassium Chloride/Sodium Chloride (Iv Sodium Chloride 0.45%) 1,015 ml @ 75 mls /hr [id number] IV Last administered on 12/19/16 21:24; Start 12/19/16 at 21:30; Stop 12/20/16 at 08:48; Status DC Furosemide (Lasix) 20 mg 1X ONCE IVP Last administered on 12/20/16 09:09; Start 12/20/16 at 09:30; Stop 12/20/16 at 09:31; Status DC Iohexol (Omnipaque 300 Mg/ml) 100 ml STK-MED ONCE .ROUTE ; Start 12/20/16 at 16: 17; Stop 12/20/16 at 16:18; Status DC Lidocaine HCl 20 ml 20 ml STK-MED ONCE .ROUTE ; Start 12/20/16 at 16:17; Stop at 16:18; Status DC Heparin Sodium/ Sodium Chloride 500 ml @ As Directed STK-MED ONCE .ROUTE ; Start 12/20/16 at 16:17; Stop 12/20/16 at 16:18; Status DC Heparin Sodium/ Sodium Chloride 1,000 unit 1X ONCE IART Last administered on 16:45; Start 12/20/16 at 16:45; Stop 12/20/16 at 16:46; Status DC Iohexol (Omnipaque 300 Mg/ml) 100 ml 1X ONCE IART Last administered on 16:45; Start 12/20/16 at 16:45; Stop 12/20/16 at 16:46; Status DC Lidocaine HCl 20 ml 1X ONCE IJ Last administered on 12/20/16 16:45; Start at 16:45; Stop 12/20/16 at 16:46; Status DC Furosemide (Lasix) 40 mg 1X ONCE IVP Last administered on 12/21/16 11:35; Start 12/21/16 at 10:15; Stop 12/21/16 at 10:17; Status DC Scopolamine (Transderm-Scop) 1 patch Q3DAYS TD ; Start 12/24/16 at 09:00; Status UNV Atropine Sulfate 1 drop 1 drop PRN Q2HR PRN SL SECRETIONS Last administered on 12/21/16 21:57; Start 12/21/16 at 19:30 Piperacillin Sod/ Tazobactam Sod/ Sodium Chloride (Zosyn/Iv Sodium Chloride 0.9 % 100ml) 100 ml @ 200 mls/hr Q6HRS IV Last administered on 12/24/16 06:03; Start 12/22/16 at 11:00 Piperacillin Sod/ Tazobactam Sod 1 each 1 each PRN DAILY PRN MC SEE COMMENTS; Start 12/22/16 at 10:00; Stop 12/22/16 at 10:12; Status DC Potassium Chloride (KCl Premix 20meq) 50 ml @ 50 mls/hr Q1H IV Last administered on 12/22/16 17:22; Start 12/22/16 at 15:00; Stop 12/22/16 at 16:59 ; Status DC Furosemide (Lasix) 20 mg DAILY IVP Last administered on 12/24/16 08:57; Start 12/22/16 at 15:30; Stop 12/29/16 at 15:29 Vancomycin HCl 1 each 1 each PRN DAILY PRN MC SEE COMMENTS Last administered on 12/24/16 09:45; Start 12/23/16 at 08:15 Vancomycin HCl 1.75 gm/Sodium Chloride 500 ml @ 250 mls/hr 1X ONCE IV Last administered on 12/23/16 11:23; Start 12/23/16 at 08:30; Stop 12/23/16 at 10:29 ; Status DC Vancomycin HCl/ Sodium Chloride (Iv Sodium Chloride 0.9% 250ml) 250 ml @ 250 mls/hr Q8H IV Last administered on 12/24/16 00:45; Start 12/23/16 at 16:30; Stop 12/24/16 at 09:39; Status DC Vancomycin HCl 1 each 1 each 1X ONCE MC Last administered on 12/24/16 08:00; Start 12/24/16 at 08:00; Stop 12/24/16 at 08:01; Status DC Levofloxacin/ Dextrose (LEVAQUIN 500mg PREMIX) 100 ml @ 100 mls/hr Q24H IV Last administered on 12/24/16 08:57; Start 12/23/16 at 08:30 Iohexol (Omnipaque 240 Mg/ml) 30 ml 1X ONCE PO Last administered on 12/23/16 11:09; Start 12/23/16 at 09:00; Stop 12/23/16 at 09:01; Status DC Iohexol (Omnipaque 300 Mg/ml) 75 ml 1X ONCE IV Last administered on 12/23/16 11:08; Start 12/23/16 at 09:00; Stop 12/23/16 at 09:01; Status DC Pantoprazole Sodium (Protonix Vial) 40 mg DAILYAC IVP Last administered on 12/24 08:15; Start 12/23/16 at 12:00 Ondansetron HCl (Zofran) 4 mg PRN Q6HRS PRN IV Nausea; Start 12/26/16 at 07:00 ; Stop 12/27/16 at 06:59 Fentanyl Citrate (Fentanyl 2ml Vial) 25 mcg PRN Q5MIN PRN IV MILD PAIN; Start 12/26/16 at 07:00; Stop 12/27/16 at 06:59 Fentanyl Citrate (Fentanyl 2ml Vial) 50 mcg PRN Q5MIN PRN IV MODERATE PAIN; Start 12/26/16 at 07:00; Stop 12/27/16 at 06:59 Morphine Sulfate 1 mg 1 mg PRN Q10MIN PRN IV SEVERE PAIN; Start 12/26/16 at 07: 00; Stop 12/27/16 at 06:59 Lactated Ringer's (Iv Lactated Ringers) 1,000 ml @ 30 mls/hr Q24H IV ; Start at 07:00; Stop 12/26/16 at 18:59 Lidocaine HCl 2 ml 1X PRN PRN ID IV START; Start 12/26/16 at 07:00; Stop at 06:59 Hydromorphone HCl (Dilaudid) 0.5 mg PRN Q10MIN PRN IV SEVERE PAIN, Second choice; Start 12/26/16 at 07:00; Stop 12/27/16 at 06:59 Prochlorperazine Edisylate 5 mg 5 mg PACU PRN PRN IV NAUSEA; Start 12/26/16 at 07:00; Stop 12/27/16 at 06:59 Vancomycin HCl 1.25 gm/Sodium Chloride 250 ml @ 167 mls/hr Q8H IV Last administered on 12/24/16 10:36; Start 12/24/16 at 10:00 Potassium Chloride (KCl Premix 20meq) 50 ml @ 50 mls/hr Q1H IV Last administered on 12/24/16 10:36; Start 12/24/16 at 10:15; Stop 12/24/16 at 12:14 ; Status DC Active Scripts Active Reported Benazepril Hcl 40 Mg Tablet 1 Tab PO DAILY Amlodipine Besylate 5 Mg Tablet 5 Mg PO DAILY Vitals/I & O Vital Sign - Last 24 Hours 12/23/16 12/23/16 12/23/16 12/23/16 14:00 14:05 15:00 15:24 Temp 101.7 101.7 Pulse 102 94 Resp 24 20 B/P 149/73 143/76 Pulse Ox 100 100 100 100 O2 Delivery Ventilator Ventilator Ventilator Ventilator 12/23/16 12/23/16 12/23/16 12/23/16 16:00 16:00 17:00 18:00 Temp 101.2 100.7 101.2 100.7 Pulse 96 100 100 Resp 21 B/P 132/75 128/71 137/78 Pulse Ox 100 100 100 O2 Delivery Mechanical Ventilator Ventilator Ventilator Ventilator 12/23/16 12/23/16 12/23/16 2 18:01 19:00 19:43 20:00 Temp 102.2 102.2 Pulse 87 Resp 20 B/P 146/80 Pulse Ox 100 100 100 O2 Delivery Ventilator Ventilator Ventilator Mechanical Ventilator 12/23/16 12/23/16 12/23/16 12/23/16 20:00 20:00 21:00 21:40 Temp 99.2 99.2 Pulse 82 97 Resp 17 19 B/P 138/78 137/83 Pulse Ox 100 100 100 O2 Delivery Ventilator Ventilator Ventilator 12/23/16 12/23/16 12/23/16 12/23/16 22:00 23:00 23:36 23:59 Temp 101.7 101.7 Pulse 102 100 Resp 22 21 B/P 150/89 151/85 Pulse Ox 100 99 99 O2 Delivery Ventilator Ventilator Ventilator Mechanical Ventilator 12/24/16 12/24/16 2 2 00:00 01:00 01:30 02:00 Temp 100.9 98.9 100.9 98.9 Pulse 102 101 74 Resp 20 23 17 B/P 147/82 142/74 123/88 Pulse Ox 100 100 100 100 O2 Delivery Ventilator Ventilator Ventilator Ventilator 12/24/16 12/24/16 212/24/16 02:12 03:00 03:45 04:00 Pulse 75 Resp 18 18 B/P 109/65 Pulse Ox 100 100 100 O2 Delivery Ventilator Ventilator Ventilator Mechanical Ventilator 12/24/16 12/24/16 2 2 04:00 05:00 05:11 05:40 Temp 98.9 101.4 98.9 101.4 Pulse 92 92 Resp 18 17 18 B/P 144/79 164/93 Pulse Ox 100 100 100 100 O2 Delivery Ventilator Ventilator Ventilator Ventilator 12/24/16 12/24/16 2 2 05:41 06:00 08:16 08:16 Temp 101.4 101.4 Pulse 75 Resp 17 24 B/P 105/56 Pulse Ox 100 100 100 100 O2 Delivery Ventilator Ventilator Ventilator Ventilator 12/24/16 2 2 08:46 10:12 11:51 Resp 17 Pulse Ox 100 100 100 O2 Delivery Ventilator Ventilator Ventilator Intake and Output 12/23/16 12/23/16 12/24/16 15:00 23:00 07:00 Intake Total 205 ml 300 ml 2386 ml Output Total 1460 ml 605 ml 330 ml Balance -1255 ml -305 ml 2056 ml LESLYE VENEGAS MD Dec 24, 2016 13:26
[2016-12-24 15:12] LABS: FIO2 ABG 40
--- NOTE | 2016-12-24 22:18 | PDOC ---
PROGRESS NOTES Subjective Subjective patient seen at 1030 remains intubated Objective Objective Vital Signs Date Time Temp Pulse Resp B/P Pulse Ox O2 Delivery O2 Flow Rate FiO2 12/24/16 21:00 100.0 95 21 124/68 100 Ventilator 100.0 Intake and Output 12/24/16 07:00 Intake Total 2891 ml Output Total 2395 ml Balance 496 ml Intake Oral 0 ml IV Total 550 ml Tube Feeding 1871 ml Blood Product IV Normal Saline Flush 470 ml Output Urine Total 2395 ml # Bowel Movements 2 Physical Exam General: No acute distress Neuro: Other (moves right side purposelfully, opens eyes with minimal stimulation) Skin: Other (incision-slava intact, dry) Assessment Assessment Problems Medical Problems: (1) Intraparenchymal hematoma of brain Status: Acute Plan Plan of Care continue to wean as tolerated Comment Review of Relevant I have reviewed the following items jose alfredo (where applicable) has been applied. Labs Laboratory Tests Test 12/23/16 05:00 12/23/16 08:00 12/23/16 11:50 12/23/16 12:05 White Blood Count 18.3x10^3/uL (4.0-11.0) Red Blood Count 3.38x10^6/uL (4.30-5.70) Hemoglobin 10.9g/dL (13.0-17.5) Hematocrit 32.4% (39.0-53.0) Mean Corpuscular Volume 96fL (79-100) Mean Corpuscular Hemoglobin 32pg (25-35) Mean Corpuscular Hemoglobin Concent 34g/dL (31-37) Red Cell Distribution Width 12.7% (11.5-14.5) Platelet Count 330x10^3/uL (140-400) Neutrophils (%) (Auto) 77% (31-73) Lymphocytes (%) (Auto) 7% (24-48) Monocytes (%) (Auto) 16% (0-9) Eosinophils (%) (Auto) 0% (0-3) Basophils (%) (Auto) 0% (0-3) Neutrophils # (Auto) 14.1x10^3uL (1.8-7.7) Lymphocytes # (Auto) 1.2x10^3/uL (1.0-4.8) Monocytes # (Auto) 2.9x10^3/uL (0.0-1.1) Eosinophils # (Auto) 0.0x10^3/uL (0.0-0.7) Basophils # (Auto) 0.1x10^3/uL (0.0-0.2) Segmented Neutrophils % 75% (35-66) Band Neutrophils % 6% (0-9) Lymphocytes % 8% (24-48) Monocytes % 11% (0-10) Toxic Granulation Present Toxic Vacuolation Present Platelet Estimate Adequate (ADEQUATE) Sodium Level 132mmol/L (136-145) Potassium Level 3.9mmol/L (3.5-5.1) Chloride Level 98mmol/L (98-107) Carbon Dioxide Level 25mmol/L (21-32) Anion Gap 9 (6-14) Blood Urea Nitrogen 17mg/dL (8-26) Creatinine 0.5mg/dL (0.7-1.3) Estimated GFR (Cockcroft-Gault) 168.5 Glucose Level 137mg/dL (70-99) Calcium Level 8.6mg/dL (8.5-10.1) Magnesium Level 1.8mg/dL (1.8-2.4) O2 Saturation 96% (92-99) Arterial Blood pH 7.52 (7.35-7.45) Arterial Blood pCO2 at Patient Temp 30mmHg (35-46) Arterial Blood pO2 at Patient Temp 78mmHg (65-108) Arterial Blood HCO3 24mmol/L (21-28) Arterial Blood Base Excess 2mmol/L (-3-3) FiO2 40 Procalcitonin 0.15ng/mL (0.00-0.10) Influenza Type A Antigen Negative (NEGATIVE) Influenza Type B Antigen Negative (NEGATIVE) Test 12/24/16 06:10 12/24/16 08:00 12/24/16 08:05 12/24/16 13:00 White Blood Count 14.2x10^3/uL (4.0-11.0) Red Blood Count 2.80x10^6/uL (4.30-5.70) Hemoglobin 9.1g/dL (13.0-17.5) Hematocrit 26.6% (39.0-53.0) Mean Corpuscular Volume 95fL (79-100) Mean Corpuscular Hemoglobin 33pg (25-35) Mean Corpuscular Hemoglobin Concent 34g/dL (31-37) Red Cell Distribution Width 12.7% (11.5-14.5) Platelet Count 308x10^3/uL (140-400) Neutrophils (%) (Auto) 84% (31-73) Lymphocytes (%) (Auto) 5% (24-48) Monocytes (%) (Auto) 10% (0-9) Eosinophils (%) (Auto) 1% (0-3) Basophils (%) (Auto) 0% (0-3) Neutrophils # (Auto) 11.9x10^3uL (1.8-7.7) Lymphocytes # (Auto) 0.7x10^3/uL (1.0-4.8) Monocytes # (Auto) 1.4x10^3/uL (0.0-1.1) Eosinophils # (Auto) 0.1x10^3/uL (0.0-0.7) Basophils # (Auto) 0.1x10^3/uL (0.0-0.2) Sodium Level 130mmol/L (136-145) Potassium Level 3.2mmol/L (3.5-5.1) Chloride Level 95mmol/L (98-107) Carbon Dioxide Level 28mmol/L (21-32) Anion Gap 7 (6-14) Blood Urea Nitrogen 17mg/dL (8-26) Creatinine 0.6mg/dL (0.7-1.3) Estimated GFR (Cockcroft-Gault) 136.5 Glucose Level 126mg/dL (70-99) Calcium Level 8.1mg/dL (8.5-10.1) O2 Saturation 95% (92-99) 97% (92-99) Arterial Blood pH 7.49 (7.35-7.45) 7.52 (7.35-7.45) Arterial Blood pCO2 at Patient Temp 30mmHg (35-46) 34mmHg (35-46) Arterial Blood pO2 at Patient Temp 77mmHg (65-108) 96mmHg (65-108) Arterial Blood HCO3 22mmol/L (21-28) 27mmol/L (21-28) Arterial Blood Base Excess 0mmol/L (-3-3) 4mmol/L (-3-3) FiO2 40 40 Vancomycin Level Trough 10.3mcg/mL (10.0-20.0) Vancomycin Last Dose Date 12/23/16 Vancomycin Last Dose Time 2200 Laboratory Tests Test 12/24/16 06:10 12/24/16 08:00 12/24/16 08:05 12/24/16 13:00 White Blood Count 14.2x10^3/uL (4.0-11.0) Red Blood Count 2.80x10^6/uL (4.30-5.70) Hemoglobin 9.1g/dL (13.0-17.5) Hematocrit 26.6% (39.0-53.0) Mean Corpuscular Volume 95fL (79-100) Mean Corpuscular Hemoglobin 33pg (25-35) Mean Corpuscular Hemoglobin Concent 34g/dL (31-37) Red Cell Distribution Width 12.7% (11.5-14.5) Platelet Count 308x10^3/uL (140-400) Neutrophils (%) (Auto) 84% (31-73) Lymphocytes (%) (Auto) 5% (24-48) Monocytes (%) (Auto) 10% (0-9) Eosinophils (%) (Auto) 1% (0-3) Basophils (%) (Auto) 0% (0-3) Neutrophils # (Auto) 11.9x10^3uL (1.8-7.7) Lymphocytes # (Auto) 0.7x10^3/uL (1.0-4.8) Monocytes # (Auto) 1.4x10^3/uL (0.0-1.1) Eosinophils # (Auto) 0.1x10^3/uL (0.0-0.7) Basophils # (Auto) 0.1x10^3/uL (0.0-0.2) Sodium Level 130mmol/L (136-145) Potassium Level 3.2mmol/L (3.5-5.1) Chloride Level 95mmol/L (98-107) Carbon Dioxide Level 28mmol/L (21-32) Anion Gap 7 (6-14) Blood Urea Nitrogen 17mg/dL (8-26) Creatinine 0.6mg/dL (0.7-1.3) Estimated GFR (Cockcroft-Gault) 136.5 Glucose Level 126mg/dL (70-99) Calcium Level 8.1mg/dL (8.5-10.1) O2 Saturation 95% (92-99) 97% (92-99) Arterial Blood pH 7.49 (7.35-7.45) 7.52 (7.35-7.45) Arterial Blood pCO2 at Patient Temp 30mmHg (35-46) 34mmHg (35-46) Arterial Blood pO2 at Patient Temp 77mmHg (65-108) 96mmHg (65-108) Arterial Blood HCO3 22mmol/L (21-28) 27mmol/L (21-28) Arterial Blood Base Excess 0mmol/L (-3-3) 4mmol/L (-3-3) FiO2 40 40 Vancomycin Level Trough 10.3mcg/mL (10.0-20.0) Vancomycin Last Dose Date 12/23/16 Vancomycin Last Dose Time 2200 Microbiology 12/23/16 Blood Culture - Preliminary, Resulted NO GROWTH AFTER 1 DAY Medications Current Medications Multivitamins/ Minerals/Folic Acid/Thiamine HCl/ Sodium Chloride (Infuvite Adult / Iv Sodium Chloride 0.9% 1000ml Bag) 1,011.2 ml @ 1,000 mls/ hr 1X ONCE IV Last administered on 12/15/16t 18:53; Start 12/15/16 at 18:45; Stop 12/15/16 at 19: 45; Status DC Ondansetron HCl 4 mg 4 mg 1X ONCE IV ; Start 12/15/16 at 18:45; Stop 12/15/16 at 18:46; Status DC Propofol 0 ml @ As Directed STK-MED ONCE IV ; Start 12/15/16 at 19:57; Stop at 19:58; Status DC Propofol (Diprivan) 50 ml @ As Directed STK-MED ONCE IV ; Start 12/15/16 at 19:57 ; Stop 12/15/16 at 19:58; Status DC Lidocaine HCl 100 mg STK-MED ONCE .ROUTE ; Start 12/15/16 at 20:45; Stop 12/15/16 at 20:46; Status DC Fentanyl Citrate (Fentanyl 2ml Vial) 100 mcg STK-MED ONCE .ROUTE ; Start at 20:46; Stop 12/15/16 at 20:47; Status DC Rocuronium Powderhorn (Zemuron) 50 mg STK-MED ONCE .ROUTE ; Start 12/15/16 at 20:46 ; Stop 12/15/16 at 20:47; Status DC Ondansetron HCl 4 mg 4 mg PRN Q8HRS PRN IV NAUSEA/VOMITING; Start 12/15/16 at 20 :45; Stop 12/15/16 at 23:44; Status DC Sodium Chloride (Iv Sodium Chloride 0.9% 1000ml Bag) 1,000 ml @ 100 mls/hr Q10H IV Last administered on 12/16/16 06:45; Start 12/15/16 at 20:45; Stop 08/22 at 07:25; Status DC Acetaminophen (Tylenol) 650 mg PRN Q4HRS PRN PO FEVER Last administered on 12/16 16:43; Start 12/15/16 at 20:45; Stop 12/16/16 at 20:44; Status DC Etomidate (Amidate) 20 mg 1X ONCE IV Last administered on 12/15/16 19:51; Start 12/15/16 at 20:45; Stop 12/15/16 at 20:53; Status DC Succinylcholine Chloride 100 mg 100 mg 1X ONCE IV Last administered on 19:52; Start 12/15/16 at 20:45; Stop 12/15/16 at 20:53; Status DC Bacitracin/Sodium Chloride (Iv Sodium Chloride 0.9% 1000ml Bag) 1,000 ml @ 1, 000 mls/hr 1X PERIOP ONCE IRR Last administered on 12/15/16 22:05; Start at 21:00; Stop 12/15/16 at 21:59; Status DC Cellulose 1 each STK-MED ONCE .ROUTE Last administered on 12/15/16 22:05; Start 12/15/16 at 20:58; Stop 12/15/16 at 20:59; Status DC Bupivacaine HCl/ Epinephrine Bitart (Sensorcain-Mpf Epi 0.5%-1:[id number]) 30 ml STK -MED ONCE .ROUTE Last administered on 12/15/16 22:05; Start 12/15/16 at 20:58; Stop 12/15/16 at 20:59; Status DC Gelatin (Gelfoam Size 100) 1 each STK-MED ONCE .ROUTE Last administered on 12/15 22:05; Start 12/15/16 at 20:58; Stop 12/15/16 at 20:59; Status DC Thrombin 70628 unit 20,000 unit STK-MED ONCE TP Last administered on 12/15/16 22:05; Start 12/15/16 at 20:58; Stop 12/15/16 at 20:59; Status DC Propofol (Diprivan) 20 ml @ As Directed STK-MED ONCE IV ; Start 12/15/16 at 21:06 ; Stop 12/15/16 at 21:07; Status DC Desflurane 60 ml 60 ml STK-MED ONCE IH ; Start 12/15/16 at 21:49; Stop 12/15/16 at 21:50; Status DC Cefazolin Sodium/ Dextrose 50 ml @ As Directed STK-MED ONCE IV ; Start 12/15/16 at 21:52; Stop 12/15/16 at 21:53; Status DC Mannitol (Mannitol Iv Soln) 500 ml @ As Directed STK-MED ONCE IV ; Start at 21:53; Stop 12/15/16 at 21:54; Status DC Phenylephrine HCl 1 mg 1 mg STK-MED ONCE IV ; Start 12/15/16 at 21:55; Stop at 21:56; Status DC Levetiracetam/ Sodium Chloride (Keppra/Iv Sodium Chloride 0.9% 100ml) 100 ml @ 400 mls/hr 1X ONCE IV Last administered on 12/15/16 22:30; Start 12/15/16 at 22 :15; Stop 12/15/16 at 22:29; Status DC Ondansetron HCl (Zofran) 4 mg PRN Q6HRS PRN IV Nausea; Start 12/15/16 at 22:30; Stop 12/16/16 at 14:48; Status DC Fentanyl Citrate (Fentanyl 2ml Vial) 25 mcg PRN Q5MIN PRN IV MILD PAIN; Start 12/15/16 at 22:30; Stop 12/16/16 at 13:00; Status DC Fentanyl Citrate (Fentanyl 2ml Vial) 50 mcg PRN Q5MIN PRN IV MODERATE PAIN; Start 12/15/16 at 22:30; Stop 12/16/16 at 13:00; Status DC Morphine Sulfate 1 mg 1 mg PRN Q10MIN PRN IV SEVERE PAIN; Start 12/15/16 at 22: 30; Stop 12/16/16 at 13:08; Status DC Lactated Ringer's (Iv Lactated Ringers) 1,000 ml @ 0 mls/hr Q0M IV ; Start 12/15 at 22:30; Stop 12/16/16 at 13:08; Status DC Lidocaine HCl 2 ml 1X PRN PRN ID IV START; Start 12/15/16 at 22:30; Stop at 13:08; Status DC Hydromorphone HCl (Dilaudid) 0.5 mg PRN Q10MIN PRN IV SEV PAIN,Second choice; Start 12/15/16 at 22:30; Stop 12/16/16 at 13:01; Status DC Prochlorperazine Edisylate 5 mg 5 mg PACU PRN PRN IV NAUSEA; Start 12/15/16 at 22:30; Stop 12/16/16 at 13:08; Status DC Propofol 100 ml @ As Directed STK-MED ONCE IV ; Start 12/15/16 at 23:13; Stop at 23:14; Status DC Nicardipine HCl/ Sodium Chloride (Cardene/Iv Sodium Chloride 0.9% 250ml) 270 ml @ 27 mls/hr TITRATE PRN IV PER PROTOCOL; Start 12/15/16 at 23:30 Diphenhydramine HCl (Benadryl) 25 mg PRN Q6HRS PRN PO ITCHING; Start 12/15/16 at 23:30; Stop 12/19/16 at 12:54; Status DC Diphenhydramine HCl 25 mg 25 mg PRN Q6HRS PRN IV ITCHING; Start 12/15/16 at 23: 30 Levetiracetam/ Sodium Chloride (Keppra/Iv Sodium Chloride 0.9% 100ml) 105 ml @ 400 mls/hr Q12HR IV Last administered on 12/24/16t 20:00; Start 12/16/16 at 09: 00 Sodium Chloride (Normal Saline Flush) 3 ml QSHIFT PRN IV AFTER MEDS AND BLOOD DRAWS; Start 12/15/16 at 23:30 Dextrose 12.5 gm PRN Q15MIN PRN IV SEE COMMENTS; Start 12/15/16 at 23:30 Magnesium Hydroxide (Milk Of Magnesia) 2,400 mg PRN Q12HR PRN PO CONSTIPATION; Start 12/15/16 at 23:30 Ondansetron HCl 4 mg 4 mg PRN Q6HRS PRN IV NAUESA, 1ST CHOICE; Start 12/15/16 at 23:30 Cefazolin Sodium 1 gm/Sodium Chloride 50 ml @ 100 mls/hr Q8HRS IV Last administered on 12/16/16 21:05; Start 12/16/16 at 06:00; Stop 12/16/16 at 22:29 ; Status DC Potassium Chloride/Dextrose/ Sod Cl (KCl 20 Meq In D5W-1/2 NS) 1,000 ml @ 75 mls/hr [id number] IV Last administered on 12/18/16 18:18; Start 12/15/16 at 23:30 ; Stop 12/19/16 at 09:48; Status DC Fentanyl Citrate (Fentanyl 2ml Vial) 25 mcg PRN Q1HR PRN IV PAIN Last administered on 12/24/16 14:15; Start 12/15/16 at 23:30 Fentanyl Citrate (Fentanyl 2ml Vial) 50 mcg PRN Q1HR PRN IV PAIN Last administered on 12/24/16 05:11; Start 12/15/16 at 23:30 Info (Do NOT chart on this placeholder) 1 each 1X ONCE MC ; Start 12/16/16 at 04:00; Stop 12/16/16 at 04:01; Status UNV Pneumococcal Polyvalent Vaccine (Do NOT chart on this placeholder) 1 each 1X ONCE MC ; Start 12/16/16 at 04:00; Stop 12/16/16 at 04:01; Status UNV Influenza Virus Vaccine Quadrival (Fluarix Quad 3247-0007 Syringe) 0.5 ml ONCE ONCE VAX IM Last administered on 12/17/16 08:49; Start 12/16/16 at 09:00; Stop 12/16/16 at 09:01; Status DC Pneumococcal Polyvalent Vaccine 0.5 ml 0.5 ml ONCE ONCE VAX IM Last administered on 12/17/16 08:47; Start 12/16/16 at 09:00; Stop 12/16/16 at 09:01 ; Status DC Propofol 100 ml @ 0 mls/hr CONT PRN IV SEE I/O RECORD Last administered on 12/21 02:53; Start 12/16/16 at 04:30 Propofol 100 ml @ 0 mls/hr CONT PRN IV SEE I/O RECORD; Start 12/16/16 at 00:00 ; Stop 12/16/16 at 03:00; Status Cancel Propofol 100 ml @ 0 mls/hr CONT PRN IV SEE I/O RECORD Last administered on 20:00; Start 12/16/16 at 00:00; Stop 12/16/16 at 09:04; Status DC Multivitamins/ Minerals/Thiamine HCl/Folic Acid/ Sodium Chloride (Infuvite Adult / Iv Sodium Chloride 0.9% 1000ml Bag) 1,011.2 ml @ 100 mls/ hr DAILY IV Last administered on 12/22/16 08:31; Start 12/16/16 at 10:00; Stop 12/22/16 at 09:59 ; Status DC Lorazepam (Ativan) 2 mg PRN Q1HR PRN IV For CIWA 8-14 Last administered on 12/21 21:57; Start 12/16/16 at 10:00; Stop 12/23/16 at 19:01; Status DC Lorazepam (Ativan) 4 mg PRN Q1HR PRN IV For CIWA 15 or greater Last administered on 12/22/16 01:36; Start 12/16/16 at 10:00; Stop 12/23/16 at 19:01 ; Status DC Piperacillin Sod/ Tazobactam Sod (Zosyn Per Pharmacy) 1 each PRN DAILY PRN MC SEE COMMENTS; Start 12/16/16 at 10:30; Stop 12/18/16 at 11:54; Status DC Vancomycin HCl 1 each 1 each PRN DAILY PRN MC SEE COMMENTS Last administered on 12/18/16 04:00; Start 12/16/16 at 10:30; Stop 12/18/16 at 11:54; Status DC Vancomycin HCl 1.5 gm/Sodium Chloride 500 ml @ 250 mls/hr 1X ONCE IV Last administered on 12/16/16 14:08; Start 12/16/16 at 11:00; Stop 12/16/16 at 12:59 ; Status DC Piperacillin Sod/ Tazobactam Sod/ Sodium Chloride (Zosyn/Iv Sodium Chloride 0.9 % 100ml) 100 ml @ 200 mls/hr Q6HRS IV Last administered on 12/18/16 05:11; Start 12/16/16 at 12:00; Stop 12/18/16 at 11:54; Status DC Propofol 1000 mg 1,000 mg STK-MED ONCE IV ; Start 12/15/16 at 23:00; Stop at 13:28; Status DC Vancomycin HCl/ Sodium Chloride (Iv Sodium Chloride 0.9% 250ml) 250 ml @ 250 mls/hr Q12H IV Last administered on 12/18/16 02:00; Start 12/17/16 at 02:00; Stop 12/18/16 at 03:45; Status DC Vancomycin HCl 1 each 1X ONCE MC Last administered on 12/18/16 01:30; Start 12/18/16 at 01:30; Stop 12/18/16 at 11:54; Status DC Hydralazine HCl (Apresoline) 10 mg PRN Q4HRS PRN IVP ELEVATED BP, SEE COMMENTS Last administered on 12/22/16 23:49; Start 12/17/16 at 12:15 Potassium Chloride 40 meq 40 meq 1X ONCE PO ; Start 12/17/16 at 18:15; Stop 09/22 at 18:16; Status Cancel Potassium Chloride 50 ml @ 50 mls/hr Q1H IV Last administered on 12/18/16 00: 55; Start 12/17/16 at 19:00; Stop 12/17/16 at 20:59; Status DC Vancomycin HCl/ Sodium Chloride (Iv Sodium Chloride 0.9% 250ml) 250 ml @ 250 mls/hr Q8H IV Last administered on 12/18/16 03:54; Start 12/18/16 at 04:00; Stop 12/18/16 at 11:54; Status DC Vancomycin HCl 1 each 1X ONCE MC ; Start 12/19/16 at 03:30; Stop 12/19/16 at 03 :30; Status DC Budesonide (Pulmicort) 0.5 mg RTBID NEB Last administered on 12/24/16 19:45; Start 12/18/16 at 08:00 Vecuronium Powderhorn 6 mg 6 mg 1X ONCE IV Last administered on 12/18/16 13:09; Start 12/18/16 at 13:00; Stop 12/18/16 at 13:01; Status DC Magnesium Sulfate/ Dextrose 50 ml @ 25 mls/hr 1X ONCE IV Last administered on 12/18/16 15:34; Start 12/18/16 at 15:00; Stop 12/18/16 at 16:59; Status DC Potassium Chloride 100 ml @ 100 mls/hr Q1H IV Last administered on 12/18/16 18:17; Start 12/18/16 at 15:00; Stop 12/18/16 at 18:59; Status DC Cefazolin Sodium 1 gm/Sodium Chloride 50 ml @ 100 mls/hr Q8HRS IV Last administered on 12/22/16 05:34; Start 12/19/16 at 10:00; Stop 12/22/16 at 10:01 ; Status DC Magnesium Sulfate/ Dextrose 50 ml @ 25 mls/hr 1X ONCE IV Last administered on 12/19/16 10:42; Start 12/19/16 at 10:30; Stop 12/19/16 at 12:29; Status DC Sodium Chloride/ Potassium Chloride/ Potassium Phosphate/ Magnesium Sulfate/ Calcium Gluconate/ Multivitamins/ Minerals/Chromium/ Copper/Manganese/ Seleni/Zn /Total Parenteral Nutrition/Amino Acids/Dextrose/ Fat Emulsion Intravenous ( Sodium Chloride/ Potassium Phospha... 87.0013 ml @ 3.625 mls/hr TPN CONT IV ; Start 12/19/16 at 22:00; Stop 12/19/16 at 22:00; Status Cancel Info 1 each 1 each PRN DAILY PRN MC SEE COMMENTS; Start 12/19/16 at 10:00; Stop 12/19/16 at 10:00; Status DC Potassium Chloride (KCl Premix 10meq) 100 ml @ 100 mls/hr Q1H IV Last administered on 12/19/16 20:52; Start 12/19/16 at 11:00; Stop 12/19/16 at 14:59 ; Status DC Acetaminophen (Tylenol) 650 mg PRN Q6HRS PRN PO MILD PAIN / TEMP; Start at 13:45; Status Cancel Acetaminophen 650 mg 650 mg PRN Q6HRS PRN PEG MILD PAIN / TEMP Last administered on 12/24/16 19:59; Start 12/19/16 at 14:00 Potassium Chloride/Sodium Chloride (Iv Sodium Chloride 0.45%) 1,015 ml @ 75 mls /hr [id number] IV Last administered on 12/19/16 21:24; Start 12/19/16 at 21:30; Stop 12/20/16 at 08:48; Status DC Furosemide (Lasix) 20 mg 1X ONCE IVP Last administered on 12/20/16 09:09; Start 12/20/16 at 09:30; Stop 12/20/16 at 09:31; Status DC Iohexol (Omnipaque 300 Mg/ml) 100 ml STK-MED ONCE .ROUTE ; Start 12/20/16 at 16: 17; Stop 12/20/16 at 16:18; Status DC Lidocaine HCl 20 ml 20 ml STK-MED ONCE .ROUTE ; Start 12/20/16 at 16:17; Stop at 16:18; Status DC Heparin Sodium/ Sodium Chloride 500 ml @ As Directed STK-MED ONCE .ROUTE ; Start 12/20/16 at 16:17; Stop 12/20/16 at 16:18; Status DC Heparin Sodium/ Sodium Chloride 1,000 unit 1X ONCE IART Last administered on 16:45; Start 12/20/16 at 16:45; Stop 12/20/16 at 16:46; Status DC Iohexol (Omnipaque 300 Mg/ml) 100 ml 1X ONCE IART Last administered on 16:45; Start 12/20/16 at 16:45; Stop 12/20/16 at 16:46; Status DC Lidocaine HCl 20 ml 1X ONCE IJ Last administered on 12/20/16 16:45; Start at 16:45; Stop 12/20/16 at 16:46; Status DC Furosemide (Lasix) 40 mg 1X ONCE IVP Last administered on 12/21/16 11:35; Start 12/21/16 at 10:15; Stop 12/21/16 at 10:17; Status DC Scopolamine (Transderm-Scop) 1 patch Q3DAYS TD ; Start 12/24/16 at 09:00; Status UNV Atropine Sulfate 1 drop 1 drop PRN Q2HR PRN SL SECRETIONS Last administered on 12/21/16 21:57; Start 12/21/16 at 19:30 Piperacillin Sod/ Tazobactam Sod/ Sodium Chloride (Zosyn/Iv Sodium Chloride 0.9 % 100ml) 100 ml @ 200 mls/hr Q6HRS IV Last administered on 12/24/16 18:11; Start 12/22/16 at 11:00 Piperacillin Sod/ Tazobactam Sod 1 each 1 each PRN DAILY PRN MC SEE COMMENTS; Start 12/22/16 at 10:00; Stop 12/22/16 at 10:12; Status DC Potassium Chloride (KCl Premix 20meq) 50 ml @ 50 mls/hr Q1H IV Last administered on 12/22/16 17:22; Start 12/22/16 at 15:00; Stop 12/22/16 at 16:59 ; Status DC Furosemide (Lasix) 20 mg DAILY IVP Last administered on 12/24/16 08:57; Start 12/22/16 at 15:30; Stop 12/29/16 at 15:29 Vancomycin HCl 1 each 1 each PRN DAILY PRN MC SEE COMMENTS Last administered on 12/24/16 09:45; Start 12/23/16 at 08:15 Vancomycin HCl 1.75 gm/Sodium Chloride 500 ml @ 250 mls/hr 1X ONCE IV Last administered on 12/23/16 11:23; Start 12/23/16 at 08:30; Stop 12/23/16 at 10:29 ; Status DC Vancomycin HCl/ Sodium Chloride (Iv Sodium Chloride 0.9% 250ml) 250 ml @ 250 mls/hr Q8H IV Last administered on 12/24/16 00:45; Start 12/23/16 at 16:30; Stop 12/24/16 at 09:39; Status DC Vancomycin HCl 1 each 1 each 1X ONCE MC Last administered on 12/24/16 08:00; Start 12/24/16 at 08:00; Stop 12/24/16 at 08:01; Status DC Levofloxacin/ Dextrose (LEVAQUIN 500mg PREMIX) 100 ml @ 100 mls/hr Q24H IV Last administered on 12/24/16 08:57; Start 12/23/16 at 08:30 Iohexol (Omnipaque 240 Mg/ml) 30 ml 1X ONCE PO Last administered on 12/23/16 11:09; Start 12/23/16 at 09:00; Stop 12/23/16 at 09:01; Status DC Iohexol (Omnipaque 300 Mg/ml) 75 ml 1X ONCE IV Last administered on 12/23/16 11:08; Start 12/23/16 at 09:00; Stop 12/23/16 at 09:01; Status DC Pantoprazole Sodium (Protonix Vial) 40 mg DAILYAC IVP Last administered on 12/24 08:15; Start 12/23/16 at 12:00 Ondansetron HCl (Zofran) 4 mg PRN Q6HRS PRN IV Nausea; Start 12/26/16 at 07:00 ; Stop 12/27/16 at 06:59 Fentanyl Citrate (Fentanyl 2ml Vial) 25 mcg PRN Q5MIN PRN IV MILD PAIN; Start 12/26/16 at 07:00; Stop 12/27/16 at 06:59 Fentanyl Citrate (Fentanyl 2ml Vial) 50 mcg PRN Q5MIN PRN IV MODERATE PAIN; Start 12/26/16 at 07:00; Stop 12/27/16 at 06:59 Morphine Sulfate 1 mg 1 mg PRN Q10MIN PRN IV SEVERE PAIN; Start 12/26/16 at 07: 00; Stop 12/27/16 at 06:59 Lactated Ringer's (Iv Lactated Ringers) 1,000 ml @ 30 mls/hr Q24H IV ; Start at 07:00; Stop 12/26/16 at 18:59 Lidocaine HCl 2 ml 1X PRN PRN ID IV START; Start 12/26/16 at 07:00; Stop at 06:59 Hydromorphone HCl (Dilaudid) 0.5 mg PRN Q10MIN PRN IV SEVERE PAIN, Second choice; Start 12/26/16 at 07:00; Stop 12/27/16 at 06:59 Prochlorperazine Edisylate 5 mg 5 mg PACU PRN PRN IV NAUSEA; Start 12/26/16 at 07:00; Stop 12/27/16 at 06:59 Vancomycin HCl 1.25 gm/Sodium Chloride 250 ml @ 167 mls/hr Q8H IV Last administered on 12/24/16 18:10; Start 12/24/16 at 10:00 Potassium Chloride (KCl Premix 20meq) 50 ml @ 50 mls/hr Q1H IV Last administered on 12/24/16 15:36; Start 12/24/16 at 10:15; Stop 12/24/16 at 12:14 ; Status DC Active Scripts Active Reported Benazepril Hcl 40 Mg Tablet 1 Tab PO DAILY Amlodipine Besylate 5 Mg Tablet 5 Mg PO DAILY Vitals/I & O Vital Sign - Last 24 Hours 12/23/16 12/23/16 12/23/16 12/24/16 23:00 23:36 23:59 00:00 Temp 101.7 100.9 101.7 100.9 Pulse 100 102 Resp 21 20 B/P 151/85 147/82 Pulse Ox 99 99 100 O2 Delivery Ventilator Ventilator Mechanical Ventilator Ventilator 12/24/16 12/24/16 12/24/16 12/24/16 01:00 01:30 02:00 02:12 Temp 98.9 98.9 Pulse 101 74 Resp 23 17 18 B/P 142/74 123/88 Pulse Ox 100 100 100 100 O2 Delivery Ventilator Ventilator Ventilator Ventilator 12/24/16 12/24/16 12/24/16 12/24/16 03:00 03:45 04:00 04:00 Temp 98.9 98.9 Pulse 75 92 Resp 18 18 B/P 109/65 144/79 Pulse Ox 100 100 100 O2 Delivery Ventilator Ventilator Mechanical Ventilator Ventilator 12/24/16 12/24/16 12/24/16 12/24/16 05:00 05:11 05:40 05:41 Temp 101.4 101.4 Pulse 92 Resp 17 B/P 164/93 Pulse Ox 100 100 100 100 O2 Delivery Ventilator Ventilator Ventilator Ventilator 12/24/16 12/24/16 12/24/16 12/24/16 06:00 07:00 08:00 08:00 Temp 101.4 99.0 101.4 99.0 Pulse 75 74 80 B/P 105/56 101/52 117/63 Pulse Ox 100 100 100 O2 Delivery Ventilator Ventilator Mechanical Ventilator Ventilator 12/24/16 12/24/16 12/24/16 12/24/16 08:16 08:16 09:00 10:00 Pulse 74 94 Resp 24 B/P 112/63 136/80 Pulse Ox 100 100 100 100 O2 Delivery Ventilator Ventilator Ventilator Ventilator 12/24/16 12/24/16 12/24/16 12/24/16 10:12 11:00 11:51 11:58 Temp 99.5 99.5 Pulse 96 B/P 127/79 Pulse Ox 100 100 100 96 O2 Delivery Ventilator Ventilator Ventilator Ventilator 12/24/16 12/24/16 12/24/16 12/24/16 12:00 12:00 13:00 14:00 Pulse 88 94 110 B/P 136/73 139/73 137/86 Pulse Ox 100 100 100 O2 Delivery Mechanical Ventilator Ventilator Ventilator Ventilator 12/24/16 12/24/16 12/24/16 12/24/16 14:15 14:38 14:45 15:00 Temp 100.0 100.0 Pulse 102 Resp 22 29 B/P 131/80 Pulse Ox 100 95 100 99 O2 Delivery Ventilator Ventilator Ventilator Ventilator 12/24/16 12/24/16 12/24/16 12/24/16 15:58 16:00 16:00 17:00 Pulse 96 96 B/P 117/59 138/78 Pulse Ox 100 99 100 O2 Delivery Ventilator Mechanical Ventilator Ventilator Ventilator 12/24/16 12/24/16 12/24/16 12/24/16 18:00 18:05 19:00 19:45 Temp 102.5 102.5 Pulse 88 98 Resp 20 B/P 130/77 131/76 Pulse Ox 100 100 100 99 O2 Delivery Ventilator Ventilator Ventilator Ventilator 12/24/16 12/24/16 12/24/16 20:00 20:00 21:00 Temp 100.0 100.0 Pulse 94 95 Resp 16 21 B/P 135/81 124/68 Pulse Ox 100 100 O2 Delivery Mechanical Ventilator Ventilator Ventilator Intake and Output 12/23/16 12/23/16 12/24/16 15:00 23:00 07:00 Intake Total 205 ml 300 ml 2386 ml Output Total 1460 ml 605 ml 330 ml Balance -1255 ml -305 ml 2056 ml NALLELY MILLAN MD Dec 24, 2016 22:18
[2016-12-25] VITALS (24 sets, daily range): BP systolic 99–159; BP diastolic 52–91
[2016-12-25] MEDS: PIPERACILLIN/TAZOBACTAM 4.5 GM in IV NORMAL SALINE 100ML 100 ML IV SCH ×5 (00:35→23:52)
[2016-12-25] MEDS: VANCOMYCIN 1.25 GM in IV NORMAL SALINE 250ML 250 ML IV SCH ×3 (02:34→18:03)
[2016-12-25] MEDS: FENTANYL PF 100 MCG/2 ML VIAL. IV PRN ×2 (02:52→22:32)
--- NOTE | 2016-12-25 07:07 | PDOC ---
PULMONARY PROGRESS NOTES Subjective PT OFF SEDATION AWAKE AT TIMES, doesn't follow my commands RN REPORTS PT FOLLOW SOME COMMANDS large ett secretion Vitals Vital Signs Date Time Temp Pulse Resp B/P Pulse Ox O2 Delivery O2 Flow Rate FiO2 12/25/16 06:00 86 18 114/61 100 Ventilator 12/25/16 04:00 99.0 99.0 Comments ros as mentioned as above, discussed w rn, other sys otherwise neg lymphatics no lap General: Confused HEENT: Other (s/p crani, perrl, orally intubated, nose clear. ) Lungs: Crackles Cardiovascular: S1, S2 Abdomen: Soft, Non-tender, Other (no mass) Extremities: No Edema Skin: Warm Labs Laboratory Tests Test 12/23/16 08:00 12/23/16 11:50 12/23/16 12:05 12/24/16 06:10 O2 Saturation 96% (92-99) Arterial Blood pH 7.52 (7.35-7.45) Arterial Blood pCO2 at Patient Temp 30mmHg (35-46) Arterial Blood pO2 at Patient Temp 78mmHg (65-108) Arterial Blood HCO3 24mmol/L (21-28) Arterial Blood Base Excess 2mmol/L (-3-3) FiO2 40 Procalcitonin 0.15ng/mL (0.00-0.10) Influenza Type A Antigen Negative (NEGATIVE) Influenza Type B Antigen Negative (NEGATIVE) White Blood Count 14.2x10^3/uL (4.0-11.0) Red Blood Count 2.80x10^6/uL (4.30-5.70) Hemoglobin 9.1g/dL (13.0-17.5) Hematocrit 26.6% (39.0-53.0) Mean Corpuscular Volume 95fL (79-100) Mean Corpuscular Hemoglobin 33pg (25-35) Mean Corpuscular Hemoglobin Concent 34g/dL (31-37) Red Cell Distribution Width 12.7% (11.5-14.5) Platelet Count 308x10^3/uL (140-400) Neutrophils (%) (Auto) 84% (31-73) Lymphocytes (%) (Auto) 5% (24-48) Monocytes (%) (Auto) 10% (0-9) Eosinophils (%) (Auto) 1% (0-3) Basophils (%) (Auto) 0% (0-3) Neutrophils # (Auto) 11.9x10^3uL (1.8-7.7) Lymphocytes # (Auto) 0.7x10^3/uL (1.0-4.8) Monocytes # (Auto) 1.4x10^3/uL (0.0-1.1) Eosinophils # (Auto) 0.1x10^3/uL (0.0-0.7) Basophils # (Auto) 0.1x10^3/uL (0.0-0.2) Sodium Level 130mmol/L (136-145) Potassium Level 3.2mmol/L (3.5-5.1) Chloride Level 95mmol/L (98-107) Carbon Dioxide Level 28mmol/L (21-32) Anion Gap 7 (6-14) Blood Urea Nitrogen 17mg/dL (8-26) Creatinine 0.6mg/dL (0.7-1.3) Estimated GFR (Cockcroft-Gault) 136.5 Glucose Level 126mg/dL (70-99) Calcium Level 8.1mg/dL (8.5-10.1) Test 12/24/16 08:00 12/24/16 08:05 12/24/16 13:00 O2 Saturation 95% (92-99) 97% (92-99) Arterial Blood pH 7.49 (7.35-7.45) 7.52 (7.35-7.45) Arterial Blood pCO2 at Patient Temp 30mmHg (35-46) 34mmHg (35-46) Arterial Blood pO2 at Patient Temp 77mmHg (65-108) 96mmHg (65-108) Arterial Blood HCO3 22mmol/L (21-28) 27mmol/L (21-28) Arterial Blood Base Excess 0mmol/L (-3-3) 4mmol/L (-3-3) FiO2 40 40 Vancomycin Level Trough 10.3mcg/mL (10.0-20.0) Vancomycin Last Dose Date 12/23/16 Vancomycin Last Dose Time 2200 Laboratory Tests Test 12/24/16 08:00 12/24/16 08:05 12/24/16 13:00 O2 Saturation 95% (92-99) 97% (92-99) Arterial Blood pH 7.49 (7.35-7.45) 7.52 (7.35-7.45) Arterial Blood pCO2 at Patient Temp 30mmHg (35-46) 34mmHg (35-46) Arterial Blood pO2 at Patient Temp 77mmHg (65-108) 96mmHg (65-108) Arterial Blood HCO3 22mmol/L (21-28) 27mmol/L (21-28) Arterial Blood Base Excess 0mmol/L (-3-3) 4mmol/L (-3-3) FiO2 40 40 Vancomycin Level Trough 10.3mcg/mL (10.0-20.0) Vancomycin Last Dose Date 12/23/16 Vancomycin Last Dose Time 2200 Medications Active Scripts Medications Dose Route/Sig Days Date Category Benazepril Hcl 40 Mg Tablet 1 Tab PO DAILY 12/16/16 Reported Amlodipine Besylate 5 Mg Tablet 5 Mg PO DAILY 12/16/16 Reported Comments CXR MILD CONGESTION Impression . IMPRESSION: 1. Acute respiratory failure secondary ICH 2. 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 3. Underlying chronic obstructive pulmonary disease, unknown FEV1, smoked for 40 years. 4. Underlying alcoholism. 5. EDEMA 6. Fever may be central 7. Nutrition per tube feeding 8. S/P ICV filter 9. ABNORMAL CXR COMPATIBLE WITH FLUID OVERLOAD Plan . cont vent support, vent setting reviewed, has large ett secretion, weak cough, TRACH ON MONDAY PEG NEEDED CXR IS BETTER WITH LASIX PRN VERSED, FENTANYL LASIX DAILY , MONITOR CR, K S/P IVC CONTINUE THE SAME FOR NOW discussed w EMERALD Tobar MD Dec 25, 2016 07:07
[2016-12-25] MEDS: PANTOPRAZOLE IV PUSH 40 MG VIAL. IVP SCH (07:39)
[2016-12-25 08:15] LABS: BASO # 0.1 x10^3/uL (0.0-0.2); BASO % 1 % (0-3); EOS % 1 % (0-3); HEMATOCRIT 27.6 % (39.0-53.0); HEMOGLOBIN 9.3 g/dL (13.0-17.5); LYMPH % 8 % (24-48); MEAN CORPUSCULAR HEMOGLOBIN 32 pg (25-35); MEAN CORPUSCULAR HGB CONC 34 g/dL (31-37); MEAN CORPUSCULAR VOLUME 95 fL (79-100); MONO % 9 % (0-9); NEUT % 81 % (31-73); PLATELET COUNT 347 x10^3/uL (140-400); RED CELL DISTRIBUTION WIDTH 12.8 % (11.5-14.5); WHITE BLOOD COUNT 11.9 x10^3/uL (4.0-11.0)
[2016-12-25] MEDS: LEVETIRACETAM 500 MG in IV NORMAL SALINE 100ML 100 ML IV SCH ×2 (08:23→21:04)
[2016-12-25] MEDS: ACETAMINOPHEN 650 MG/20.3 ML SOLUTION. PEG PRN ×2 (08:23→21:04)
[2016-12-25] MEDS: FUROSEMIDE 20 MG/2 ML VIAL IVP SCH (08:23)
[2016-12-25] MEDS: BUDESONIDE 0.5 MG/2 ML NEBU NEB SCH ×2 (08:35→20:43)
[2016-12-25 08:40] LABS: ALBUMIN 2.1 g/dL (3.4-5.0); ALBUMIN/GLOBULIN RATIO 0.6 (1.0-1.7); CALCIUM 8.2 mg/dL (8.5-10.1); CREATININE 0.6 mg/dL (0.7-1.3); GFR 136.5; POTASSIUM 3.3 mmol/L (3.5-5.1); TOTAL BILIRUBIN 0.4 mg/dL (0.2-1.0); TOTAL PROTEIN 5.7 g/dL (6.4-8.2)
[2016-12-25 09:22] LABS: HCO3 ABG 27 mmol/L (21-28); PCO2 ABG 33 mmHg (35-46); PH ABG 7.53 (7.35-7.45); PO2 ABG 82 mmHg (65-108); SAT O2 ABG 96 % (92-99)
[2016-12-25 09:23] LABS: BODY TEMP ABG 100.8 DEG; CORRECTED PCO2 ABG 34 mmHg; CORRECTED PH ABG 7.51; CORRECTED PO2 ABG 88 mmHg
[2016-12-25 09:30] LABS: FIO2 ABG 30
--- NOTE | 2016-12-25 09:59 | PDOC ---
Infectious Disease Note Subjective Subjective Intubated. FiO2 30% + fevers. Tmax 102.5 ROS ROS Unobtainable Vital Sign Vital Signs Vital Signs Date Time Temp Pulse Resp B/P Pulse Ox O2 Delivery O2 Flow Rate FiO2 12/25/16 09:37 99 Ventilator 12/25/16 09:00 95 30 146/78 12/25/16 08:00 100.8 100.8 Physical Exam PHYSICAL EXAM GENERAL: Intubated, mitt HEENT: ETT. OGT. Incision on the right-side of scalp well-approx, slava. No redness or drainage. 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 clean Labs Lab Laboratory Tests Test 12/24/16 13:00 12/25/16 06:45 12/25/16 08:00 O2 Saturation 97% (92-99) 96% (92-99) Arterial Blood pH 7.52 (7.35-7.45) 7.53 (7.35-7.45) Arterial Blood pCO2 at Patient Temp 34mmHg (35-46) 33mmHg (35-46) Arterial Blood pO2 at Patient Temp 96mmHg (65-108) 82mmHg (65-108) Arterial Blood HCO3 27mmol/L (21-28) 27mmol/L (21-28) Arterial Blood Base Excess 4mmol/L (-3-3) 4mmol/L (-3-3) FiO2 40 30 White Blood Count 11.9x10^3/uL (4.0-11.0) Red Blood Count 2.90x10^6/uL (4.30-5.70) Hemoglobin 9.3g/dL (13.0-17.5) Hematocrit 27.6% (39.0-53.0) Mean Corpuscular Volume 95fL (79-100) Mean Corpuscular Hemoglobin 32pg (25-35) Mean Corpuscular Hemoglobin Concent 34g/dL (31-37) Red Cell Distribution Width 12.8% (11.5-14.5) Platelet Count 347x10^3/uL (140-400) Neutrophils (%) (Auto) 81% (31-73) Lymphocytes (%) (Auto) 8% (24-48) Monocytes (%) (Auto) 9% (0-9) Eosinophils (%) (Auto) 1% (0-3) Basophils (%) (Auto) 1% (0-3) Neutrophils # (Auto) 9.7x10^3uL (1.8-7.7) Lymphocytes # (Auto) 1.0x10^3/uL (1.0-4.8) Monocytes # (Auto) 1.1x10^3/uL (0.0-1.1) Eosinophils # (Auto) 0.1x10^3/uL (0.0-0.7) Basophils # (Auto) 0.1x10^3/uL (0.0-0.2) Sodium Level 132mmol/L (136-145) Potassium Level 3.3mmol/L (3.5-5.1) Chloride Level 97mmol/L (98-107) Carbon Dioxide Level 28mmol/L (21-32) Anion Gap 7 (6-14) Blood Urea Nitrogen 18mg/dL (8-26) Creatinine 0.6mg/dL (0.7-1.3) Estimated GFR (Cockcroft-Gault) 136.5 BUN/Creatinine Ratio 30 (6-20) Glucose Level 122mg/dL (70-99) Calcium Level 8.2mg/dL (8.5-10.1) Total Bilirubin 0.4mg/dL (0.2-1.0) Aspartate Amino Transf (AST/SGOT) 30U/L (15-37) Alanine Aminotransferase (ALT/SGPT) 34U/L (16-63) Alkaline Phosphatase 56U/L (46-116) Total Protein 5.7g/dL (6.4-8.2) Albumin 2.1g/dL (3.4-5.0) Albumin/Globulin Ratio 0.6 (1.0-1.7) Arterial Blood pH (Temp corrected) 7.51 Arterial Blood pCO2 (Temp correct) 34mmHg Arterial Blood pO2 (Temp corrected) 88mmHg Micro BLOOD CULTURE Preliminary NO GROWTH AFTER 1 DAY Objective Assessment Fever - Vanc/Zosy/Levoflox started 12/23. Procalcitonin - min elevation. CT head mild residual effect 2/16 some mucosal thickening. F/u neg Leukocytosis, trending down ICH - s/p evac 12/15 Respiratory failure - intubated. Mod sized pleural effusion and IVC ETOH COPD Plan Plan of Care Vanc, Zosyn & Levaquin Monitor labs f/u cultures/cxr CHASITY QUICK APRN Dec 25, 2016 09:59
[2016-12-25] MEDS ORDERED: POTASSIUM CHLORIDE 20 MEQ/15 ML ORAL LIQUID. GT ONE ×2 (10:15→10:30)
--- NOTE | 2016-12-25 10:25 | RAD ---
Indication shortness of air. Respiratory failure. A single view of the chest was obtained and is compared to a study one day earlier. Endotracheal tube is appropriately positioned above the rico. A right PICC line and nasogastric tube are noted. Heart and pulmonary vessels are similar. Volume loss at the left lung base likely reflecting pleural fluid and atelectasis persists. There is some new volume loss at the right lung base which may reflect pleural fluid and atelectasis. IMPRESSION: Various support tubes and catheters appear appropriately positioned. Slight increase in volume loss at the right lung base relative to the previous exam suggesting pleural fluid and/or atelectasis
[2016-12-25] MEDS: VANCOMYCIN PER PHARMACY MC PRN (11:06)
--- NOTE | 2016-12-25 12:58 | PDOC ---
PROGRESS NOTES Chief Complaint Chief Complaint cc: ams A/P Right frontal craniotomy with evacuation of intracerebral hematoma and placement of external ventricular drain in the right lateral ventricle.POD 5 Alcohol abuse Respiratory failure on Mechanical ventilation Elective Hyponatremia fever 2/2 intracranial hemarrhage vs. asp PNA IVC filter Plan On mechanical ventilation, off sedation, SBT ok CIWA protocol for alcohol withdrawal precaution Keppra for seizure precautions BP goal < SBP 130 GI prophylaxis NO dvt prophylaxis Tube feeds, dc ivf, lasix 40mg x1, now lasix 20mg daily, replete K family at bedside, all questions answered off sedation IVC filter for PE prevention as per neurosx on 12/[address] repeat 12/22/16 better now on zosyn, vanco, levaquin with ID, bcx neg. trach , PEG on Monday i talked to neurosx, no intervention now, will need repeat Head CT next WEEK, maybe , then contact him for removal of head slava pt may dc to select post trach and PEG. History of Present Illness History of Present Illness intubated. off sedation for >3ds failed wean trial yesterday with tachycardia and HTN 2 days ago, better now, definitely more awake , alert now, can open a little bit eyes, move right hand fever, secretion + CT better Vitals Vitals Vital Signs Date Time Temp Pulse Resp B/P Pulse Ox O2 Delivery O2 Flow Rate FiO2 12/25/16 12:56 98 Ventilator 12/25/16 12:00 98.7 84 17 138/76 98.7 Physical Exam Physical Exam intubated, off sedation for 2 days, can wig toes, but not really waking up General: No acute distress Heart: Regular rate, Normal S1, Normal S2 Lungs: Crackles Abdomen: Soft, No tenderness Extremities: No edema Skin: Other (incision-slava intact, dry) Labs LABS Laboratory Tests Test 12/24/16 13:00 12/25/16 06:45 12/25/16 08:00 O2 Saturation 97% (92-99) 96% (92-99) Arterial Blood pH 7.52 (7.35-7.45) 7.53 (7.35-7.45) Arterial Blood pCO2 at Patient Temp 34mmHg (35-46) 33mmHg (35-46) Arterial Blood pO2 at Patient Temp 96mmHg (65-108) 82mmHg (65-108) Arterial Blood HCO3 27mmol/L (21-28) 27mmol/L (21-28) Arterial Blood Base Excess 4mmol/L (-3-3) 4mmol/L (-3-3) FiO2 40 30 White Blood Count 11.9x10^3/uL (4.0-11.0) Red Blood Count 2.90x10^6/uL (4.30-5.70) Hemoglobin 9.3g/dL (13.0-17.5) Hematocrit 27.6% (39.0-53.0) Mean Corpuscular Volume 95fL (79-100) Mean Corpuscular Hemoglobin 32pg (25-35) Mean Corpuscular Hemoglobin Concent 34g/dL (31-37) Red Cell Distribution Width 12.8% (11.5-14.5) Platelet Count 347x10^3/uL (140-400) Neutrophils (%) (Auto) 81% (31-73) Lymphocytes (%) (Auto) 8% (24-48) Monocytes (%) (Auto) 9% (0-9) Eosinophils (%) (Auto) 1% (0-3) Basophils (%) (Auto) 1% (0-3) Neutrophils # (Auto) 9.7x10^3uL (1.8-7.7) Lymphocytes # (Auto) 1.0x10^3/uL (1.0-4.8) Monocytes # (Auto) 1.1x10^3/uL (0.0-1.1) Eosinophils # (Auto) 0.1x10^3/uL (0.0-0.7) Basophils # (Auto) 0.1x10^3/uL (0.0-0.2) Sodium Level 132mmol/L (136-145) Potassium Level 3.3mmol/L (3.5-5.1) Chloride Level 97mmol/L (98-107) Carbon Dioxide Level 28mmol/L (21-32) Anion Gap 7 (6-14) Blood Urea Nitrogen 18mg/dL (8-26) Creatinine 0.6mg/dL (0.7-1.3) Estimated GFR (Cockcroft-Gault) 136.5 BUN/Creatinine Ratio 30 (6-20) Glucose Level 122mg/dL (70-99) Calcium Level 8.2mg/dL (8.5-10.1) Total Bilirubin 0.4mg/dL (0.2-1.0) Aspartate Amino Transf (AST/SGOT) 30U/L (15-37) Alanine Aminotransferase (ALT/SGPT) 34U/L (16-63) Alkaline Phosphatase 56U/L (46-116) Total Protein 5.7g/dL (6.4-8.2) Albumin 2.1g/dL (3.4-5.0) Albumin/Globulin Ratio 0.6 (1.0-1.7) Arterial Blood pH (Temp corrected) 7.51 Arterial Blood pCO2 (Temp correct) 34mmHg Arterial Blood pO2 (Temp corrected) 88mmHg Review of Systems Review of Systems no fever, chills, Assessment and Plan Assessmemt and Plan Problems Medical Problems: (1) Intraparenchymal hematoma of brain Status: Acute Problems: Comment Review of Relevant I have reviewed the following items jose alfredo (where applicable) has been applied. Labs Laboratory Tests Test 12/24/16 06:10 12/24/16 08:00 12/24/16 08:05 12/24/16 13:00 White Blood Count 14.2x10^3/uL (4.0-11.0) Red Blood Count 2.80x10^6/uL (4.30-5.70) Hemoglobin 9.1g/dL (13.0-17.5) Hematocrit 26.6% (39.0-53.0) Mean Corpuscular Volume 95fL (79-100) Mean Corpuscular Hemoglobin 33pg (25-35) Mean Corpuscular Hemoglobin Concent 34g/dL (31-37) Red Cell Distribution Width 12.7% (11.5-14.5) Platelet Count 308x10^3/uL (140-400) Neutrophils (%) (Auto) 84% (31-73) Lymphocytes (%) (Auto) 5% (24-48) Monocytes (%) (Auto) 10% (0-9) Eosinophils (%) (Auto) 1% (0-3) Basophils (%) (Auto) 0% (0-3) Neutrophils # (Auto) 11.9x10^3uL (1.8-7.7) Lymphocytes # (Auto) 0.7x10^3/uL (1.0-4.8) Monocytes # (Auto) 1.4x10^3/uL (0.0-1.1) Eosinophils # (Auto) 0.1x10^3/uL (0.0-0.7) Basophils # (Auto) 0.1x10^3/uL (0.0-0.2) Sodium Level 130mmol/L (136-145) Potassium Level 3.2mmol/L (3.5-5.1) Chloride Level 95mmol/L (98-107) Carbon Dioxide Level 28mmol/L (21-32) Anion Gap 7 (6-14) Blood Urea Nitrogen 17mg/dL (8-26) Creatinine 0.6mg/dL (0.7-1.3) Estimated GFR (Cockcroft-Gault) 136.5 Glucose Level 126mg/dL (70-99) Calcium Level 8.1mg/dL (8.5-10.1) O2 Saturation 95% (92-99) 97% (92-99) Arterial Blood pH 7.49 (7.35-7.45) 7.52 (7.35-7.45) Arterial Blood pCO2 at Patient Temp 30mmHg (35-46) 34mmHg (35-46) Arterial Blood pO2 at Patient Temp 77mmHg (65-108) 96mmHg (65-108) Arterial Blood HCO3 22mmol/L (21-28) 27mmol/L (21-28) Arterial Blood Base Excess 0mmol/L (-3-3) 4mmol/L (-3-3) FiO2 40 40 Vancomycin Level Trough 10.3mcg/mL (10.0-20.0) Vancomycin Last Dose Date 12/23/16 Vancomycin Last Dose Time 2200 Test 12/25/16 06:45 12/25/16 08:00 White Blood Count 11.9x10^3/uL (4.0-11.0) Red Blood Count 2.90x10^6/uL (4.30-5.70) Hemoglobin 9.3g/dL (13.0-17.5) Hematocrit 27.6% (39.0-53.0) Mean Corpuscular Volume 95fL (79-100) Mean Corpuscular Hemoglobin 32pg (25-35) Mean Corpuscular Hemoglobin Concent 34g/dL (31-37) Red Cell Distribution Width 12.8% (11.5-14.5) Platelet Count 347x10^3/uL (140-400) Neutrophils (%) (Auto) 81% (31-73) Lymphocytes (%) (Auto) 8% (24-48) Monocytes (%) (Auto) 9% (0-9) Eosinophils (%) (Auto) 1% (0-3) Basophils (%) (Auto) 1% (0-3) Neutrophils # (Auto) 9.7x10^3uL (1.8-7.7) Lymphocytes # (Auto) 1.0x10^3/uL (1.0-4.8) Monocytes # (Auto) 1.1x10^3/uL (0.0-1.1) Eosinophils # (Auto) 0.1x10^3/uL (0.0-0.7) Basophils # (Auto) 0.1x10^3/uL (0.0-0.2) Sodium Level 132mmol/L (136-145) Potassium Level 3.3mmol/L (3.5-5.1) Chloride Level 97mmol/L (98-107) Carbon Dioxide Level 28mmol/L (21-32) Anion Gap 7 (6-14) Blood Urea Nitrogen 18mg/dL (8-26) Creatinine 0.6mg/dL (0.7-1.3) Estimated GFR (Cockcroft-Gault) 136.5 BUN/Creatinine Ratio 30 (6-20) Glucose Level 122mg/dL (70-99) Calcium Level 8.2mg/dL (8.5-10.1) Total Bilirubin 0.4mg/dL (0.2-1.0) Aspartate Amino Transf (AST/SGOT) 30U/L (15-37) Alanine Aminotransferase (ALT/SGPT) 34U/L (16-63) Alkaline Phosphatase 56U/L (46-116) Total Protein 5.7g/dL (6.4-8.2) Albumin 2.1g/dL (3.4-5.0) Albumin/Globulin Ratio 0.6 (1.0-1.7) O2 Saturation 96% (92-99) Arterial Blood pH 7.53 (7.35-7.45) Arterial Blood pH (Temp corrected) 7.51 Arterial Blood pCO2 at Patient Temp 33mmHg (35-46) Arterial Blood pCO2 (Temp correct) 34mmHg Arterial Blood pO2 at Patient Temp 82mmHg (65-108) Arterial Blood pO2 (Temp corrected) 88mmHg Arterial Blood HCO3 27mmol/L (21-28) Arterial Blood Base Excess 4mmol/L (-3-3) FiO2 30 Laboratory Tests Test 12/24/16 13:00 12/25/16 06:45 12/25/16 08:00 O2 Saturation 97% (92-99) 96% (92-99) Arterial Blood pH 7.52 (7.35-7.45) 7.53 (7.35-7.45) Arterial Blood pCO2 at Patient Temp 34mmHg (35-46) 33mmHg (35-46) Arterial Blood pO2 at Patient Temp 96mmHg (65-108) 82mmHg (65-108) Arterial Blood HCO3 27mmol/L (21-28) 27mmol/L (21-28) Arterial Blood Base Excess 4mmol/L (-3-3) 4mmol/L (-3-3) FiO2 40 30 White Blood Count 11.9x10^3/uL (4.0-11.0) Red Blood Count 2.90x10^6/uL (4.30-5.70) Hemoglobin 9.3g/dL (13.0-17.5) Hematocrit 27.6% (39.0-53.0) Mean Corpuscular Volume 95fL (79-100) Mean Corpuscular Hemoglobin 32pg (25-35) Mean Corpuscular Hemoglobin Concent 34g/dL (31-37) Red Cell Distribution Width 12.8% (11.5-14.5) Platelet Count 347x10^3/uL (140-400) Neutrophils (%) (Auto) 81% (31-73) Lymphocytes (%) (Auto) 8% (24-48) Monocytes (%) (Auto) 9% (0-9) Eosinophils (%) (Auto) 1% (0-3) Basophils (%) (Auto) 1% (0-3) Neutrophils # (Auto) 9.7x10^3uL (1.8-7.7) Lymphocytes # (Auto) 1.0x10^3/uL (1.0-4.8) Monocytes # (Auto) 1.1x10^3/uL (0.0-1.1) Eosinophils # (Auto) 0.1x10^3/uL (0.0-0.7) Basophils # (Auto) 0.1x10^3/uL (0.0-0.2) Sodium Level 132mmol/L (136-145) Potassium Level 3.3mmol/L (3.5-5.1) Chloride Level 97mmol/L (98-107) Carbon Dioxide Level 28mmol/L (21-32) Anion Gap 7 (6-14) Blood Urea Nitrogen 18mg/dL (8-26) Creatinine 0.6mg/dL (0.7-1.3) Estimated GFR (Cockcroft-Gault) 136.5 BUN/Creatinine Ratio 30 (6-20) Glucose Level 122mg/dL (70-99) Calcium Level 8.2mg/dL (8.5-10.1) Total Bilirubin 0.4mg/dL (0.2-1.0) Aspartate Amino Transf (AST/SGOT) 30U/L (15-37) Alanine Aminotransferase (ALT/SGPT) 34U/L (16-63) Alkaline Phosphatase 56U/L (46-116) Total Protein 5.7g/dL (6.4-8.2) Albumin 2.1g/dL (3.4-5.0) Albumin/Globulin Ratio 0.6 (1.0-1.7) Arterial Blood pH (Temp corrected) 7.51 Arterial Blood pCO2 (Temp correct) 34mmHg Arterial Blood pO2 (Temp corrected) 88mmHg Microbiology 12/23/16 Blood Culture - Preliminary, Resulted NO GROWTH AFTER 2 DAYS Medications Current Medications Multivitamins/ Minerals/Folic Acid/Thiamine HCl/ Sodium Chloride (Infuvite Adult / Iv Sodium Chloride 0.9% 1000ml Bag) 1,011.2 ml @ 1,000 mls/ hr 1X ONCE IV Last administered on 12/15/16t 18:53; Start 12/15/16 at 18:45; Stop 12/15/16 at 19: 45; Status DC Ondansetron HCl 4 mg 4 mg 1X ONCE IV ; Start 12/15/16 at 18:45; Stop 12/15/16 at 18:46; Status DC Propofol 0 ml @ As Directed STK-MED ONCE IV ; Start 12/15/16 at 19:57; Stop at 19:58; Status DC Propofol (Diprivan) 50 ml @ As Directed STK-MED ONCE IV ; Start 12/15/16 at 19:57 ; Stop 12/15/16 at 19:58; Status DC Lidocaine HCl 100 mg STK-MED ONCE .ROUTE ; Start 12/15/16 at 20:45; Stop 12/15/16 at 20:46; Status DC Fentanyl Citrate (Fentanyl 2ml Vial) 100 mcg STK-MED ONCE .ROUTE ; Start at 20:46; Stop 12/15/16 at 20:47; Status DC Rocuronium [place] (Zemuron) 50 mg STK-MED ONCE .ROUTE ; Start 12/15/16 at 20:46 ; Stop 12/15/16 at 20:47; Status DC Ondansetron HCl 4 mg 4 mg PRN Q8HRS PRN IV NAUSEA/VOMITING; Start 12/15/16 at 20 :45; Stop 12/15/16 at 23:44; Status DC Sodium Chloride (Iv Sodium Chloride 0.9% 1000ml Bag) 1,000 ml @ 100 mls/hr Q10H IV Last administered on 12/16/16 06:45; Start 12/15/16 at 20:45; Stop 08/22 at 07:25; Status DC Acetaminophen (Tylenol) 650 mg PRN Q4HRS PRN PO FEVER Last administered on 12/16 16:43; Start 12/15/16 at 20:45; Stop 12/16/16 at 20:44; Status DC Etomidate (Amidate) 20 mg 1X ONCE IV Last administered on 12/15/16 19:51; Start 12/15/16 at 20:45; Stop 12/15/16 at 20:53; Status DC Succinylcholine Chloride 100 mg 100 mg 1X ONCE IV Last administered on 19:52; Start 12/15/16 at 20:45; Stop 12/15/16 at 20:53; Status DC Bacitracin/Sodium Chloride (Iv Sodium Chloride 0.9% 1000ml Bag) 1,000 ml @ 1, 000 mls/hr 1X PERIOP ONCE IRR Last administered on 12/15/16 22:05; Start at 21:00; Stop 12/15/16 at 21:59; Status DC Cellulose 1 each STK-MED ONCE .ROUTE Last administered on 12/15/16 22:05; Start 12/15/16 at 20:58; Stop 12/15/16 at 20:59; Status DC Bupivacaine HCl/ Epinephrine Bitart (Sensorcain-Mpf Epi 0.5%-1:[id number]) 30 ml STK -MED ONCE .ROUTE Last administered on 12/15/16 22:05; Start 12/15/16 at 20:58; Stop 12/15/16 at 20:59; Status DC Gelatin (Gelfoam Size 100) 1 each STK-MED ONCE .ROUTE Last administered on 12/15 22:05; Start 12/15/16 at 20:58; Stop 12/15/16 at 20:59; Status DC Thrombin 01684 unit 20,000 unit STK-MED ONCE TP Last administered on 12/15/16 22:05; Start 12/15/16 at 20:58; Stop 12/15/16 at 20:59; Status DC Propofol (Diprivan) 20 ml @ As Directed STK-MED ONCE IV ; Start 12/15/16 at 21:06 ; Stop 12/15/16 at 21:07; Status DC Desflurane 60 ml 60 ml STK-MED ONCE IH ; Start 12/15/16 at 21:49; Stop 12/15/16 at 21:50; Status DC Cefazolin Sodium/ Dextrose 50 ml @ As Directed STK-MED ONCE IV ; Start 12/15/16 at 21:52; Stop 12/15/16 at 21:53; Status DC Mannitol (Mannitol Iv Soln) 500 ml @ As Directed STK-MED ONCE IV ; Start at 21:53; Stop 12/15/16 at 21:54; Status DC Phenylephrine HCl 1 mg 1 mg STK-MED ONCE IV ; Start 12/15/16 at 21:55; Stop at 21:56; Status DC Levetiracetam/ Sodium Chloride (Keppra/Iv Sodium Chloride 0.9% 100ml) 100 ml @ 400 mls/hr 1X ONCE IV Last administered on 12/15/16t 22:30; Start 12/15/16 at 22 :15; Stop 12/15/16 at 22:29; Status DC Ondansetron HCl (Zofran) 4 mg PRN Q6HRS PRN IV Nausea; Start 12/15/16 at 22:30; Stop 12/16/16 at 14:48; Status DC Fentanyl Citrate (Fentanyl 2ml Vial) 25 mcg PRN Q5MIN PRN IV MILD PAIN; Start 12/15/16 at 22:30; Stop 12/16/16 at 13:00; Status DC Fentanyl Citrate (Fentanyl 2ml Vial) 50 mcg PRN Q5MIN PRN IV MODERATE PAIN; Start 12/15/16 at 22:30; Stop 12/16/16 at 13:00; Status DC Morphine Sulfate 1 mg 1 mg PRN Q10MIN PRN IV SEVERE PAIN; Start 12/15/16 at 22: 30; Stop 12/16/16 at 13:08; Status DC Lactated Ringer's (Iv Lactated Ringers) 1,000 ml @ 0 mls/hr Q0M IV ; Start 12/15 at 22:30; Stop 12/16/16 at 13:08; Status DC Lidocaine HCl 2 ml 1X PRN PRN ID IV START; Start 12/15/16 at 22:30; Stop at 13:08; Status DC Hydromorphone HCl (Dilaudid) 0.5 mg PRN Q10MIN PRN IV SEV PAIN,Second choice; Start 12/15/16 at 22:30; Stop 12/16/16 at 13:01; Status DC Prochlorperazine Edisylate 5 mg 5 mg PACU PRN PRN IV NAUSEA; Start 12/15/16 at 22:30; Stop 12/16/16 at 13:08; Status DC Propofol 100 ml @ As Directed STK-MED ONCE IV ; Start 12/15/16 at 23:13; Stop at 23:14; Status DC Nicardipine HCl/ Sodium Chloride (Cardene/Iv Sodium Chloride 0.9% 250ml) 270 ml @ 27 mls/hr TITRATE PRN IV PER PROTOCOL; Start 12/15/16 at 23:30 Diphenhydramine HCl (Benadryl) 25 mg PRN Q6HRS PRN PO ITCHING; Start 12/15/16 at 23:30; Stop 12/19/16 at 12:54; Status DC Diphenhydramine HCl 25 mg 25 mg PRN Q6HRS PRN IV ITCHING; Start 12/15/16 at 23: 30 Levetiracetam/ Sodium Chloride (Keppra/Iv Sodium Chloride 0.9% 100ml) 105 ml @ 400 mls/hr Q12HR IV Last administered on 12/25/16 08:23; Start 12/16/16 at 09: 00 Sodium Chloride (Normal Saline Flush) 3 ml QSHIFT PRN IV AFTER MEDS AND BLOOD DRAWS; Start 12/15/16 at 23:30 Dextrose 12.5 gm PRN Q15MIN PRN IV SEE COMMENTS; Start 12/15/16 at 23:30 Magnesium Hydroxide (Milk Of Magnesia) 2,400 mg PRN Q12HR PRN PO CONSTIPATION; Start 12/15/16 at 23:30 Ondansetron HCl 4 mg 4 mg PRN Q6HRS PRN IV NAUESA, 1ST CHOICE; Start 12/15/16 at 23:30 Cefazolin Sodium 1 gm/Sodium Chloride 50 ml @ 100 mls/hr Q8HRS IV Last administered on 12/16/16 21:05; Start 12/16/16 at 06:00; Stop 12/16/16 at 22:29 ; Status DC Potassium Chloride/Dextrose/ Sod Cl (KCl 20 Meq In D5W-1/2 NS) 1,000 ml @ 75 mls/hr [id number] IV Last administered on 12/18/16 18:18; Start 12/15/16 at 23:30 ; Stop 12/19/16 at 09:48; Status DC Fentanyl Citrate (Fentanyl 2ml Vial) 25 mcg PRN Q1HR PRN IV PAIN Last administered on 12/24/16 14:15; Start 12/15/16 at 23:30 Fentanyl Citrate (Fentanyl 2ml Vial) 50 mcg PRN Q1HR PRN IV PAIN Last administered on 12/25/16 02:52; Start 12/15/16 at 23:30 Info (Do NOT chart on this placeholder) 1 each 1X ONCE MC ; Start 12/16/16 at 04:00; Stop 12/16/16 at 04:01; Status UNV Pneumococcal Polyvalent Vaccine (Do NOT chart on this placeholder) 1 each 1X ONCE MC ; Start 12/16/16 at 04:00; Stop 12/16/16 at 04:01; Status UNV Influenza Virus Vaccine Quadrival (Fluarix Quad [id number] Syringe) 0.5 ml ONCE ONCE VAX IM Last administered on 12/17/16 08:49; Start 12/16/16 at 09:00; Stop 12/16/16 at 09:01; Status DC Pneumococcal Polyvalent Vaccine 0.5 ml 0.5 ml ONCE ONCE VAX IM Last administered on 12/17/16 08:47; Start 12/16/16 at 09:00; Stop 12/16/16 at 09:01 ; Status DC Propofol 100 ml @ 0 mls/hr CONT PRN IV SEE I/O RECORD Last administered on 12/21 02:53; Start 12/16/16 at 04:30 Propofol 100 ml @ 0 mls/hr CONT PRN IV SEE I/O RECORD; Start 12/16/16 at 00:00 ; Stop 12/16/16 at 03:00; Status Cancel Propofol 100 ml @ 0 mls/hr CONT PRN IV SEE I/O RECORD Last administered on 20:00; Start 12/16/16 at 00:00; Stop 12/16/16 at 09:04; Status DC Multivitamins/ Minerals/Thiamine HCl/Folic Acid/ Sodium Chloride (Infuvite Adult / Iv Sodium Chloride 0.9% 1000ml Bag) 1,011.2 ml @ 100 mls/ hr DAILY IV Last administered on 12/22/16 08:31; Start 12/16/16 at 10:00; Stop 12/22/16 at 09:59 ; Status DC Lorazepam (Ativan) 2 mg PRN Q1HR PRN IV For CIWA 8-14 Last administered on 12/21 21:57; Start 12/16/16 at 10:00; Stop 12/23/16 at 19:01; Status DC Lorazepam (Ativan) 4 mg PRN Q1HR PRN IV For CIWA 15 or greater Last administered on 12/22/16 01:36; Start 12/16/16 at 10:00; Stop 12/23/16 at 19:01 ; Status DC Piperacillin Sod/ Tazobactam Sod (Zosyn Per Pharmacy) 1 each PRN DAILY PRN MC SEE COMMENTS; Start 12/16/16 at 10:30; Stop 12/18/16 at 11:54; Status DC Vancomycin HCl 1 each 1 each PRN DAILY PRN MC SEE COMMENTS Last administered on 12/18/16 04:00; Start 12/16/16 at 10:30; Stop 12/18/16 at 11:54; Status DC Vancomycin HCl 1.5 gm/Sodium Chloride 500 ml @ 250 mls/hr 1X ONCE IV Last administered on 12/16/16 14:08; Start 12/16/16 at 11:00; Stop 12/16/16 at 12:59 ; Status DC Piperacillin Sod/ Tazobactam Sod/ Sodium Chloride (Zosyn/Iv Sodium Chloride 0.9 % 100ml) 100 ml @ 200 mls/hr Q6HRS IV Last administered on 12/18/16 05:11; Start 12/16/16 at 12:00; Stop 12/18/16 at 11:54; Status DC Propofol 1000 mg 1,000 mg STK-MED ONCE IV ; Start 12/15/16 at 23:00; Stop at 13:28; Status DC Vancomycin HCl/ Sodium Chloride (Iv Sodium Chloride 0.9% 250ml) 250 ml @ 250 mls/hr Q12H IV Last administered on 12/18/16 02:00; Start 12/17/16 at 02:00; Stop 12/18/16 at 03:45; Status DC Vancomycin HCl 1 each 1X ONCE MC Last administered on 12/18/16 01:30; Start 12/18/16 at 01:30; Stop 12/18/16 at 11:54; Status DC Hydralazine HCl (Apresoline) 10 mg PRN Q4HRS PRN IVP ELEVATED BP, SEE COMMENTS Last administered on 12/22/16 23:49; Start 12/17/16 at 12:15 Potassium Chloride 40 meq 40 meq 1X ONCE PO ; Start 12/17/16 at 18:15; Stop 09/22 at 18:16; Status Cancel Potassium Chloride 50 ml @ 50 mls/hr Q1H IV Last administered on 12/18/16 00: 55; Start 12/17/16 at 19:00; Stop 12/17/16 at 20:59; Status DC Vancomycin HCl/ Sodium Chloride (Iv Sodium Chloride 0.9% 250ml) 250 ml @ 250 mls/hr Q8H IV Last administered on 12/18/16 03:54; Start 12/18/16 at 04:00; Stop 12/18/16 at 11:54; Status DC Vancomycin HCl 1 each 1X ONCE MC ; Start 12/19/16 at 03:30; Stop 12/19/16 at 03 :30; Status DC Budesonide (Pulmicort) 0.5 mg RTBID NEB Last administered on 12/25/16 08:35; Start 12/18/16 at 08:00 Vecuronium [place] 6 mg 6 mg 1X ONCE IV Last administered on 12/18/16 13:09; Start 12/18/16 at 13:00; Stop 12/18/16 at 13:01; Status DC Magnesium Sulfate/ Dextrose 50 ml @ 25 mls/hr 1X ONCE IV Last administered on 12/18/16 15:34; Start 12/18/16 at 15:00; Stop 12/18/16 at 16:59; Status DC Potassium Chloride 100 ml @ 100 mls/hr Q1H IV Last administered on 12/18/16 18:17; Start 12/18/16 at 15:00; Stop 12/18/16 at 18:59; Status DC Cefazolin Sodium 1 gm/Sodium Chloride 50 ml @ 100 mls/hr Q8HRS IV Last administered on 12/22/16 05:34; Start 12/19/16 at 10:00; Stop 12/22/16 at 10:01 ; Status DC Magnesium Sulfate/ Dextrose 50 ml @ 25 mls/hr 1X ONCE IV Last administered on 12/19/16 10:42; Start 12/19/16 at 10:30; Stop 12/19/16 at 12:29; Status DC Sodium Chloride/ Potassium Chloride/ Potassium Phosphate/ Magnesium Sulfate/ Calcium Gluconate/ Multivitamins/ Minerals/Chromium/ Copper/Manganese/ Seleni/Zn /Total Parenteral Nutrition/Amino Acids/Dextrose/ Fat Emulsion Intravenous ( Sodium Chloride/ Potassium Phospha... 87.0013 ml @ 3.625 mls/hr TPN CONT IV ; Start 12/19/16 at 22:00; Stop 12/19/16 at 22:00; Status Cancel Info 1 each 1 each PRN DAILY PRN MC SEE COMMENTS; Start 12/19/16 at 10:00; Stop 12/19/16 at 10:00; Status DC Potassium Chloride (KCl Premix 10meq) 100 ml @ 100 mls/hr Q1H IV Last administered on 12/19/16 20:52; Start 12/19/16 at 11:00; Stop 12/19/16 at 14:59 ; Status DC Acetaminophen (Tylenol) 650 mg PRN Q6HRS PRN PO MILD PAIN / TEMP; Start at 13:45; Status Cancel Acetaminophen 650 mg 650 mg PRN Q6HRS PRN PEG MILD PAIN / TEMP Last administered on 12/25/16 08:23; Start 12/19/16 at 14:00 Potassium Chloride/Sodium Chloride (Iv Sodium Chloride 0.45%) 1,015 ml @ 75 mls /hr [id number] IV Last administered on 12/19/16 21:24; Start 12/19/16 at 21:30; Stop 12/20/16 at 08:48; Status DC Furosemide (Lasix) 20 mg 1X ONCE IVP Last administered on 12/20/16 09:09; Start 12/20/16 at 09:30; Stop 12/20/16 at 09:31; Status DC Iohexol (Omnipaque 300 Mg/ml) 100 ml STK-MED ONCE .ROUTE ; Start 12/20/16 at 16: 17; Stop 12/20/16 at 16:18; Status DC Lidocaine HCl 20 ml 20 ml STK-MED ONCE .ROUTE ; Start 12/20/16 at 16:17; Stop at 16:18; Status DC Heparin Sodium/ Sodium Chloride 500 ml @ As Directed STK-MED ONCE .ROUTE ; Start 12/20/16 at 16:17; Stop 12/20/16 at 16:18; Status DC Heparin Sodium/ Sodium Chloride 1,000 unit 1X ONCE IART Last administered on 16:45; Start 12/20/16 at 16:45; Stop 12/20/16 at 16:46; Status DC Iohexol (Omnipaque 300 Mg/ml) 100 ml 1X ONCE IART Last administered on 16:45; Start 12/20/16 at 16:45; Stop 12/20/16 at 16:46; Status DC Lidocaine HCl 20 ml 1X ONCE IJ Last administered on 12/20/16 16:45; Start at 16:45; Stop 12/20/16 at 16:46; Status DC Furosemide (Lasix) 40 mg 1X ONCE IVP Last administered on 12/21/16 11:35; Start 12/21/16 at 10:15; Stop 12/21/16 at 10:17; Status DC Scopolamine (Transderm-Scop) 1 patch Q3DAYS TD ; Start 12/24/16 at 09:00; Status UNV Atropine Sulfate 1 drop 1 drop PRN Q2HR PRN SL SECRETIONS Last administered on 12/21/16 21:57; Start 12/21/16 at 19:30 Piperacillin Sod/ Tazobactam Sod/ Sodium Chloride (Zosyn/Iv Sodium Chloride 0.9 % 100ml) 100 ml @ 200 mls/hr Q6HRS IV Last administered on 12/25/16 11:07; Start 12/22/16 at 11:00 Piperacillin Sod/ Tazobactam Sod 1 each 1 each PRN DAILY PRN MC SEE COMMENTS; Start 12/22/16 at 10:00; Stop 12/22/16 at 10:12; Status DC Potassium Chloride (KCl Premix 20meq) 50 ml @ 50 mls/hr Q1H IV Last administered on 12/22/16 17:22; Start 12/22/16 at 15:00; Stop 12/22/16 at 16:59 ; Status DC Furosemide (Lasix) 20 mg DAILY IVP Last administered on 12/25/16 08:23; Start 12/22/16 at 15:30; Stop 12/29/16 at 15:29 Vancomycin HCl 1 each 1 each PRN DAILY PRN MC SEE COMMENTS Last administered on 12/25/16 11:06; Start 12/23/16 at 08:15 Vancomycin HCl 1.75 gm/Sodium Chloride 500 ml @ 250 mls/hr 1X ONCE IV Last administered on 12/23/16 11:23; Start 12/23/16 at 08:30; Stop 12/23/16 at 10:29 ; Status DC Vancomycin HCl/ Sodium Chloride (Iv Sodium Chloride 0.9% 250ml) 250 ml @ 250 mls/hr Q8H IV Last administered on 12/24/16 00:45; Start 12/23/16 at 16:30; Stop 12/24/16 at 09:39; Status DC Vancomycin HCl 1 each 1 each 1X ONCE MC Last administered on 12/24/16 08:00; Start 12/24/16 at 08:00; Stop 12/24/16 at 08:01; Status DC Levofloxacin/ Dextrose (LEVAQUIN 500mg PREMIX) 100 ml @ 100 mls/hr Q24H IV Last administered on 12/25/16 07:39; Start 12/23/16 at 08:30 Iohexol (Omnipaque 240 Mg/ml) 30 ml 1X ONCE PO Last administered on 12/23/16 11:09; Start 12/23/16 at 09:00; Stop 12/23/16 at 09:01; Status DC Iohexol (Omnipaque 300 Mg/ml) 75 ml 1X ONCE IV Last administered on 12/23/16 11:08; Start 12/23/16 at 09:00; Stop 12/23/16 at 09:01; Status DC Pantoprazole Sodium (Protonix Vial) 40 mg DAILYAC IVP Last administered on 12/25 07:39; Start 12/23/16 at 12:00 Ondansetron HCl (Zofran) 4 mg PRN Q6HRS PRN IV Nausea; Start 12/26/16 at 07:00 ; Stop 12/27/16 at 06:59 Fentanyl Citrate (Fentanyl 2ml Vial) 25 mcg PRN Q5MIN PRN IV MILD PAIN; Start 12/26/16 at 07:00; Stop 12/27/16 at 06:59 Fentanyl Citrate (Fentanyl 2ml Vial) 50 mcg PRN Q5MIN PRN IV MODERATE PAIN; Start 12/26/16 at 07:00; Stop 12/27/16 at 06:59 Morphine Sulfate 1 mg 1 mg PRN Q10MIN PRN IV SEVERE PAIN; Start 12/26/16 at 07: 00; Stop 12/27/16 at 06:59 Lactated Ringer's (Iv Lactated Ringers) 1,000 ml @ 30 mls/hr Q24H IV ; Start at 07:00; Stop 12/26/16 at 18:59 Lidocaine HCl 2 ml 1X PRN PRN ID IV START; Start 12/26/16 at 07:00; Stop at 06:59 Hydromorphone HCl (Dilaudid) 0.5 mg PRN Q10MIN PRN IV SEVERE PAIN, Second choice; Start 12/26/16 at 07:00; Stop 12/27/16 at 06:59 Prochlorperazine Edisylate 5 mg 5 mg PACU PRN PRN IV NAUSEA; Start 12/26/16 at 07:00; Stop 12/27/16 at 06:59 Vancomycin HCl 1.25 gm/Sodium Chloride 250 ml @ 167 mls/hr Q8H IV Last administered on 12/25/16 09:25; Start 12/24/16 at 10:00 Potassium Chloride (KCl Premix 20meq) 50 ml @ 50 mls/hr Q1H IV Last administered on 12/24/16 15:36; Start 12/24/16 at 10:15; Stop 12/24/16 at 12:14 ; Status DC Potassium Chloride (KCl Oral Soln) 40 meq 1X ONCE GT Last administered on 12/25 11:06; Start 12/25/16 at 10:30; Stop 12/25/16 at 10:31; Status DC Potassium Chloride (KCl Oral Soln) 40 meq 1X ONCE GT ; Start 12/25/16 at 10:15 ; Stop 12/25/16 at 10:15; Status DC Active Scripts Active Reported Benazepril Hcl 40 Mg Tablet 1 Tab PO DAILY Amlodipine Besylate 5 Mg Tablet 5 Mg PO DAILY Vitals/I & O Vital Sign - Last 24 Hours 12/24/16 12/24/16 12/24/16 12/24/16 13:00 14:00 14:15 14:38 Pulse 94 110 Resp 22 B/P 139/73 137/86 Pulse Ox 100 100 100 95 O2 Delivery Ventilator Ventilator Ventilator Ventilator 12/24/16 12/24/16 12/24/16 12/24/16 14:45 15:00 15:58 16:00 Temp 100.0 100.0 Pulse 102 Resp 29 B/P 131/80 Pulse Ox 100 99 100 O2 Delivery Ventilator Ventilator Ventilator Mechanical Ventilator 12/24/16 12/24/16 12/24/16 12/24/16 16:00 17:00 18:00 18:05 Pulse 96 96 88 B/P 117/59 138/78 130/77 Pulse Ox 99 100 100 100 O2 Delivery Ventilator Ventilator Ventilator Ventilator 12/24/16 12/24/16 12/24/16 12/24/16 19:00 19:45 20:00 20:00 Temp 102.5 102.5 Pulse 98 94 Resp 20 16 B/P 131/76 135/81 Pulse Ox 100 99 100 O2 Delivery Ventilator Ventilator Mechanical Ventilator Ventilator 12/24/16 12/24/16 12/24/16 12/24/16 21:00 21:30 22:00 23:00 Temp 100.0 99.1 100.0 99.1 Pulse 95 70 94 Resp 21 20 22 B/P 124/68 132/74 139/83 Pulse Ox 100 100 100 100 O2 Delivery Ventilator Ventilator Ventilator Ventilator 12/24/16 12/24/16 12/24/16 12/25/16 23:13 23:35 23:59 00:00 Pulse 94 Resp 22 17 B/P 100/55 Pulse Ox 100 99 100 O2 Delivery Ventilator Ventilator Mechanical Ventilator Ventilator 12/25/16 12/25/16 12/25/16 12/25/16 01:00 01:35 02:00 02:52 Pulse 70 84 Resp 17 15 26 B/P 120/70 132/73 Pulse Ox 100 100 100 100 O2 Delivery Ventilator Ventilator Ventilator Ventilator 12/25/16 12/25/16 12/25/16 12/25/16 03:00 03:22 03:40 04:00 Temp 99.0 99.0 Pulse 71 81 Resp 18 17 B/P 99/52 104/56 Pulse Ox 100 100 100 100 O2 Delivery Ventilator Ventilator Ventilator 12/25/16 12/25/16 12/25/16 12/25/16 04:00 05:00 05:27 06:00 Pulse 72 86 Resp 17 18 B/P 119/67 114/61 Pulse Ox 100 100 100 O2 Delivery Mechanical Ventilator Ventilator Ventilator Ventilator 12/25/16 12/25/16 12/25/16 12/25/16 07:00 08:00 08:00 08:35 Temp 100.8 100.8 Pulse 88 73 Resp 18 17 B/P 127/64 132/68 Pulse Ox 99 99 99 O2 Delivery Ventilator Mechanical Ventilator Ventilator Ventilator 12/25/16 12/25/16 12/25/16 12/25/16 09:00 09:37 10:00 11:00 Pulse 95 88 82 Resp 30 22 30 B/P 146/78 120/60 108/52 Pulse Ox 98 99 100 99 O2 Delivery Ventilator/Pressure support Ventilator Ventilator/Pressure support Ventilator/Pressure support 12/25/16 12/25/16 12/25/16 12:00 12:11 12:56 Temp 98.7 98.7 Pulse 84 Resp 17 B/P 138/76 Pulse Ox 100 98 98 O2 Delivery Ventilator/Pressure support Ventilator Ventilator Intake and Output 12/24/16 12/24/16 12/25/16 15:00 23:00 07:00 Intake Total 200 ml 375 ml 730 ml Output Total 1425 ml 800 ml 330 ml Balance -1225 ml -425 ml 400 ml LESLYE VENEGAS MD Dec 25, 2016 12:58
[2016-12-25] MEDS: hydrALAZINE 20 MG/ML VIAL. IVP PRN (22:01)
[2016-12-26] VITALS (30 sets, daily range): BP systolic 110–159; BP diastolic 55–105
[2016-12-26] MEDS: VANCOMYCIN 1.25 GM in IV NORMAL SALINE 250ML 250 ML IV SCH ×3 (02:03→17:38)
[2016-12-26] MEDS: PIPERACILLIN/TAZOBACTAM 4.5 GM in IV NORMAL SALINE 100ML 100 ML IV SCH ×3 (06:07→17:38)
[2016-12-26] MEDS ORDERED: IV RINGERS,LACTATED 1000ML 1,000 ML IV SCH (07:00)
[2016-12-26] MEDS ORDERED: ONDANSETRON PF 4 MG/2 ML VIAL. IV PRN (07:00)
[2016-12-26] MEDS ORDERED: MORPHINE SULFATE 2 MG/ML DISP.SYRIN. IV PRN (07:00)
[2016-12-26] MEDS ORDERED: FENTANYL PF 100 MCG/2 ML VIAL. IV PRN ×2 (07:00)
[2016-12-26] MEDS ORDERED: PROCHLORPERAZINE 10 MG/2 ML VIAL. IV PRN (07:00)
[2016-12-26] MEDS ORDERED: HYDROMORPHONE 2 MG/ML VIAL. IV PRN (07:00)
[2016-12-26] MEDS ORDERED: LIDOCAINE 1% 1 ML SYRINGE. ID PRN (07:00)
--- NOTE | 2016-12-26 07:47 | PDOC ---
PROGRESS NOTES Chief Complaint Chief Complaint cc: ams A/P Right frontal craniotomy with evacuation of intracerebral hematoma and placement of external ventricular drain in the right lateral ventricle Alcohol abuse Respiratory failure on Mechanical ventilation Ventilatory dependent respiratory failure Hyponatremia Fever 2/2 intracranial hemorrhage vs. asp PNA IVC filter Plan On mechanical ventilation, off sedation, Anticipated tracheostomy today CIWA protocol for alcohol withdrawal precaution Keppra for seizure precautions BP goal < SBP 130 GI prophylaxis NO dvt prophylaxis Tube feeds, at bedside IVC filter for PE prevention as per [facility] on 12/[address] repeat 12/22/16 better now on zosyn, vanco, Follow ID and NS recommendations. History of Present Illness History of Present Illness intubated. off sedation for >3ds failed wean trial yesterday with tachycardia and HTN 2 days ago, better now, definitely more awake , alert now, can open a little bit eyes, move right hand fever, secretion + CT better Vitals Vitals Vital Signs Date Time Temp Pulse Resp B/P Pulse Ox O2 Delivery O2 Flow Rate FiO2 12/26/16 06:07 91 22 140/86 99 Ventilator 12/26/16 05:13 100.1 100.1 Physical Exam Physical Exam Intubated. General: No acute distress Heart: Regular rate, Normal S1, Normal S2 Lungs: Clear Abdomen: Soft, No tenderness Extremities: No edema Skin: Other (incision-slava intact, dry) Labs LABS Laboratory Tests Test 12/25/16 08:00 O2 Saturation 96% (92-99) Arterial Blood pH 7.53 (7.35-7.45) Arterial Blood pH (Temp corrected) 7.51 Arterial Blood pCO2 at Patient Temp 33mmHg (35-46) Arterial Blood pCO2 (Temp correct) 34mmHg Arterial Blood pO2 at Patient Temp 82mmHg (65-108) Arterial Blood pO2 (Temp corrected) 88mmHg Arterial Blood HCO3 27mmol/L (21-28) Arterial Blood Base Excess 4mmol/L (-3-3) FiO2 30 Assessment and Plan Assessmemt and Plan Problems Medical Problems: (1) Intraparenchymal hematoma of brain Status: Acute Problems: Comment Review of Relevant I have reviewed the following items jose alfredo (where applicable) has been applied. Labs Laboratory Tests Test 12/24/16 08:00 12/24/16 08:05 12/24/16 13:00 12/25/16 06:45 O2 Saturation 95% (92-99) 97% (92-99) Arterial Blood pH 7.49 (7.35-7.45) 7.52 (7.35-7.45) Arterial Blood pCO2 at Patient Temp 30mmHg (35-46) 34mmHg (35-46) Arterial Blood pO2 at Patient Temp 77mmHg (65-108) 96mmHg (65-108) Arterial Blood HCO3 22mmol/L (21-28) 27mmol/L (21-28) Arterial Blood Base Excess 0mmol/L (-3-3) 4mmol/L (-3-3) FiO2 40 40 Vancomycin Level Trough 10.3mcg/mL (10.0-20.0) Vancomycin Last Dose Date 12/23/16 Vancomycin Last Dose Time 2200 White Blood Count 11.9x10^3/uL (4.0-11.0) Red Blood Count 2.90x10^6/uL (4.30-5.70) Hemoglobin 9.3g/dL (13.0-17.5) Hematocrit 27.6% (39.0-53.0) Mean Corpuscular Volume 95fL (79-100) Mean Corpuscular Hemoglobin 32pg (25-35) Mean Corpuscular Hemoglobin Concent 34g/dL (31-37) Red Cell Distribution Width 12.8% (11.5-14.5) Platelet Count 347x10^3/uL (140-400) Neutrophils (%) (Auto) 81% (31-73) Lymphocytes (%) (Auto) 8% (24-48) Monocytes (%) (Auto) 9% (0-9) Eosinophils (%) (Auto) 1% (0-3) Basophils (%) (Auto) 1% (0-3) Neutrophils # (Auto) 9.7x10^3uL (1.8-7.7) Lymphocytes # (Auto) 1.0x10^3/uL (1.0-4.8) Monocytes # (Auto) 1.1x10^3/uL (0.0-1.1) Eosinophils # (Auto) 0.1x10^3/uL (0.0-0.7) Basophils # (Auto) 0.1x10^3/uL (0.0-0.2) Sodium Level 132mmol/L (136-145) Potassium Level 3.3mmol/L (3.5-5.1) Chloride Level 97mmol/L (98-107) Carbon Dioxide Level 28mmol/L (21-32) Anion Gap 7 (6-14) Blood Urea Nitrogen 18mg/dL (8-26) Creatinine 0.6mg/dL (0.7-1.3) Estimated GFR (Cockcroft-Gault) 136.5 BUN/Creatinine Ratio 30 (6-20) Glucose Level 122mg/dL (70-99) Calcium Level 8.2mg/dL (8.5-10.1) Total Bilirubin 0.4mg/dL (0.2-1.0) Aspartate Amino Transf (AST/SGOT) 30U/L (15-37) Alanine Aminotransferase (ALT/SGPT) 34U/L (16-63) Alkaline Phosphatase 56U/L (46-116) Total Protein 5.7g/dL (6.4-8.2) Albumin 2.1g/dL (3.4-5.0) Albumin/Globulin Ratio 0.6 (1.0-1.7) Test 12/25/16 08:00 O2 Saturation 96% (92-99) Arterial Blood pH 7.53 (7.35-7.45) Arterial Blood pH (Temp corrected) 7.51 Arterial Blood pCO2 at Patient Temp 33mmHg (35-46) Arterial Blood pCO2 (Temp correct) 34mmHg Arterial Blood pO2 at Patient Temp 82mmHg (65-108) Arterial Blood pO2 (Temp corrected) 88mmHg Arterial Blood HCO3 27mmol/L (21-28) Arterial Blood Base Excess 4mmol/L (-3-3) FiO2 30 Laboratory Tests Test 12/25/16 08:00 O2 Saturation 96% (92-99) Arterial Blood pH 7.53 (7.35-7.45) Arterial Blood pH (Temp corrected) 7.51 Arterial Blood pCO2 at Patient Temp 33mmHg (35-46) Arterial Blood pCO2 (Temp correct) 34mmHg Arterial Blood pO2 at Patient Temp 82mmHg (65-108) Arterial Blood pO2 (Temp corrected) 88mmHg Arterial Blood HCO3 27mmol/L (21-28) Arterial Blood Base Excess 4mmol/L (-3-3) FiO2 30 Microbiology 12/23/16 Blood Culture - Preliminary, Resulted NO GROWTH AFTER 2 DAYS Medications Current Medications Multivitamins/ Minerals/Folic Acid/Thiamine HCl/ Sodium Chloride (Infuvite Adult / Iv Sodium Chloride 0.9% 1000ml Bag) 1,011.2 ml @ 1,000 mls/ hr 1X ONCE IV Last administered on 12/15/16 18:53; Start 12/15/16 at 18:45; Stop 12/15/16 at 19: 45; Status DC Ondansetron HCl 4 mg 4 mg 1X ONCE IV ; Start 12/15/16 at 18:45; Stop 12/15/16 at 18:46; Status DC Propofol 0 ml @ As Directed STK-MED ONCE IV ; Start 12/15/16 at 19:57; Stop at 19:58; Status DC Propofol (Diprivan) 50 ml @ As Directed STK-MED ONCE IV ; Start 12/15/16 at 19:57 ; Stop 12/15/16 at 19:58; Status DC Lidocaine HCl 100 mg STK-MED ONCE .ROUTE ; Start 12/15/16 at 20:45; Stop 12/15/16 at 20:46; Status DC Fentanyl Citrate (Fentanyl 2ml Vial) 100 mcg STK-MED ONCE .ROUTE ; Start at 20:46; Stop 12/15/16 at 20:47; Status DC Rocuronium Dora (Zemuron) 50 mg STK-MED ONCE .ROUTE ; Start 12/15/16 at 20:46 ; Stop 12/15/16 at 20:47; Status DC Ondansetron HCl 4 mg 4 mg PRN Q8HRS PRN IV NAUSEA/VOMITING; Start 12/15/16 at 20 :45; Stop 12/15/16 at 23:44; Status DC Sodium Chloride (Iv Sodium Chloride 0.9% 1000ml Bag) 1,000 ml @ 100 mls/hr Q10H IV Last administered on 12/16/16 06:45; Start 12/15/16 at 20:45; Stop 08/22 at 07:25; Status DC Acetaminophen (Tylenol) 650 mg PRN Q4HRS PRN PO FEVER Last administered on 12/16 16:43; Start 12/15/16 at 20:45; Stop 12/16/16 at 20:44; Status DC Etomidate (Amidate) 20 mg 1X ONCE IV Last administered on 12/15/16 19:51; Start 12/15/16 at 20:45; Stop 12/15/16 at 20:53; Status DC Succinylcholine Chloride 100 mg 100 mg 1X ONCE IV Last administered on 19:52; Start 12/15/16 at 20:45; Stop 12/15/16 at 20:53; Status DC Bacitracin/Sodium Chloride (Iv Sodium Chloride 0.9% 1000ml Bag) 1,000 ml @ 1, 000 mls/hr 1X PERIOP ONCE IRR Last administered on 12/15/16 22:05; Start at 21:00; Stop 12/15/16 at 21:59; Status DC Cellulose 1 each STK-MED ONCE .ROUTE Last administered on 12/15/16 22:05; Start 12/15/16 at 20:58; Stop 12/15/16 at 20:59; Status DC Bupivacaine HCl/ Epinephrine Bitart (Sensorcain-Mpf Epi 0.5%-1:[id number]) 30 ml STK -MED ONCE .ROUTE Last administered on 12/15/16 22:05; Start 12/15/16 at 20:58; Stop 12/15/16 at 20:59; Status DC Gelatin (Gelfoam Size 100) 1 each STK-MED ONCE .ROUTE Last administered on 12/15 22:05; Start 12/15/16 at 20:58; Stop 12/15/16 at 20:59; Status DC Thrombin 85284 unit 20,000 unit STK-MED ONCE TP Last administered on 12/15/16 22:05; Start 12/15/16 at 20:58; Stop 12/15/16 at 20:59; Status DC Propofol (Diprivan) 20 ml @ As Directed STK-MED ONCE IV ; Start 12/15/16 at 21:06 ; Stop 12/15/16 at 21:07; Status DC Desflurane 60 ml 60 ml STK-MED ONCE IH ; Start 12/15/16 at 21:49; Stop 12/15/16 at 21:50; Status DC Cefazolin Sodium/ Dextrose 50 ml @ As Directed STK-MED ONCE IV ; Start 12/15/16 at 21:52; Stop 12/15/16 at 21:53; Status DC Mannitol (Mannitol Iv Soln) 500 ml @ As Directed STK-MED ONCE IV ; Start at 21:53; Stop 12/15/16 at 21:54; Status DC Phenylephrine HCl 1 mg 1 mg STK-MED ONCE IV ; Start 12/15/16 at 21:55; Stop at 21:56; Status DC Levetiracetam/ Sodium Chloride (Keppra/Iv Sodium Chloride 0.9% 100ml) 100 ml @ 400 mls/hr 1X ONCE IV Last administered on 12/15/16t 22:30; Start 12/15/16 at 22 :15; Stop 12/15/16 at 22:29; Status DC Ondansetron HCl (Zofran) 4 mg PRN Q6HRS PRN IV Nausea; Start 12/15/16 at 22:30; Stop 12/16/16 at 14:48; Status DC Fentanyl Citrate (Fentanyl 2ml Vial) 25 mcg PRN Q5MIN PRN IV MILD PAIN; Start 12/15/16 at 22:30; Stop 12/16/16 at 13:00; Status DC Fentanyl Citrate (Fentanyl 2ml Vial) 50 mcg PRN Q5MIN PRN IV MODERATE PAIN; Start 12/15/16 at 22:30; Stop 12/16/16 at 13:00; Status DC Morphine Sulfate 1 mg 1 mg PRN Q10MIN PRN IV SEVERE PAIN; Start 12/15/16 at 22: 30; Stop 12/16/16 at 13:08; Status DC Lactated Ringer's (Iv Lactated Ringers) 1,000 ml @ 0 mls/hr Q0M IV ; Start 12/15 at 22:30; Stop 12/16/16 at 13:08; Status DC Lidocaine HCl 2 ml 1X PRN PRN ID IV START; Start 12/15/16 at 22:30; Stop at 13:08; Status DC Hydromorphone HCl (Dilaudid) 0.5 mg PRN Q10MIN PRN IV SEV PAIN,Second choice; Start 12/15/16 at 22:30; Stop 12/16/16 at 13:01; Status DC Prochlorperazine Edisylate 5 mg 5 mg PACU PRN PRN IV NAUSEA; Start 12/15/16 at 22:30; Stop 12/16/16 at 13:08; Status DC Propofol 100 ml @ As Directed STK-MED ONCE IV ; Start 12/15/16 at 23:13; Stop at 23:14; Status DC Nicardipine HCl/ Sodium Chloride (Cardene/Iv Sodium Chloride 0.9% 250ml) 270 ml @ 27 mls/hr TITRATE PRN IV PER PROTOCOL; Start 12/15/16 at 23:30 Diphenhydramine HCl (Benadryl) 25 mg PRN Q6HRS PRN PO ITCHING; Start 12/15/16 at 23:30; Stop 12/19/16 at 12:54; Status DC Diphenhydramine HCl 25 mg 25 mg PRN Q6HRS PRN IV ITCHING; Start 12/15/16 at 23: 30 Levetiracetam/ Sodium Chloride (Keppra/Iv Sodium Chloride 0.9% 100ml) 105 ml @ 400 mls/hr Q12HR IV Last administered on 12/25/16 21:04; Start 12/16/16 at 09: 00 Sodium Chloride (Normal Saline Flush) 3 ml QSHIFT PRN IV AFTER MEDS AND BLOOD DRAWS; Start 12/15/16 at 23:30 Dextrose 12.5 gm PRN Q15MIN PRN IV SEE COMMENTS; Start 12/15/16 at 23:30 Magnesium Hydroxide (Milk Of Magnesia) 2,400 mg PRN Q12HR PRN PO CONSTIPATION; Start 12/15/16 at 23:30 Ondansetron HCl 4 mg 4 mg PRN Q6HRS PRN IV NAUESA, 1ST CHOICE; Start 12/15/16 at 23:30 Cefazolin Sodium 1 gm/Sodium Chloride 50 ml @ 100 mls/hr Q8HRS IV Last administered on 12/16/16 21:05; Start 12/16/16 at 06:00; Stop 12/16/16 at 22:29 ; Status DC Potassium Chloride/Dextrose/ Sod Cl (KCl 20 Meq In D5W-1/2 NS) 1,000 ml @ 75 mls/hr [id number] IV Last administered on 12/18/16 18:18; Start 12/15/16 at 23:30 ; Stop 12/19/16 at 09:48; Status DC Fentanyl Citrate (Fentanyl 2ml Vial) 25 mcg PRN Q1HR PRN IV PAIN Last administered on 12/24/16 14:15; Start 12/15/16 at 23:30 Fentanyl Citrate (Fentanyl 2ml Vial) 50 mcg PRN Q1HR PRN IV PAIN Last administered on 12/25/16 22:32; Start 12/15/16 at 23:30 Info (Do NOT chart on this placeholder) 1 each 1X ONCE MC ; Start 12/16/16 at 04:00; Stop 12/16/16 at 04:01; Status UNV Pneumococcal Polyvalent Vaccine (Do NOT chart on this placeholder) 1 each 1X ONCE MC ; Start 12/16/16 at 04:00; Stop 12/16/16 at 04:01; Status UNV Influenza Virus Vaccine Quadrival (Fluarix Quad [id number] Syringe) 0.5 ml ONCE ONCE VAX IM Last administered on 12/17/16 08:49; Start 12/16/16 at 09:00; Stop 12/16/16 at 09:01; Status DC Pneumococcal Polyvalent Vaccine 0.5 ml 0.5 ml ONCE ONCE VAX IM Last administered on 12/17/16 08:47; Start 12/16/16 at 09:00; Stop 12/16/16 at 09:01 ; Status DC Propofol 100 ml @ 0 mls/hr CONT PRN IV SEE I/O RECORD Last administered on 12/21 02:53; Start 12/16/16 at 04:30 Propofol 100 ml @ 0 mls/hr CONT PRN IV SEE I/O RECORD; Start 12/16/16 at 00:00 ; Stop 12/16/16 at 03:00; Status Cancel Propofol 100 ml @ 0 mls/hr CONT PRN IV SEE I/O RECORD Last administered on 20:00; Start 12/16/16 at 00:00; Stop 12/16/16 at 09:04; Status DC Multivitamins/ Minerals/Thiamine HCl/Folic Acid/ Sodium Chloride (Infuvite Adult / Iv Sodium Chloride 0.9% 1000ml Bag) 1,011.2 ml @ 100 mls/ hr DAILY IV Last administered on 12/22/16 08:31; Start 12/16/16 at 10:00; Stop 12/22/16 at 09:59 ; Status DC Lorazepam (Ativan) 2 mg PRN Q1HR PRN IV For CIWA 8-14 Last administered on 12/21 21:57; Start 12/16/16 at 10:00; Stop 12/23/16 at 19:01; Status DC Lorazepam (Ativan) 4 mg PRN Q1HR PRN IV For CIWA 15 or greater Last administered on 12/22/16 01:36; Start 12/16/16 at 10:00; Stop 12/23/16 at 19:01 ; Status DC Piperacillin Sod/ Tazobactam Sod (Zosyn Per Pharmacy) 1 each PRN DAILY PRN MC SEE COMMENTS; Start 12/16/16 at 10:30; Stop 12/18/16 at 11:54; Status DC Vancomycin HCl 1 each 1 each PRN DAILY PRN MC SEE COMMENTS Last administered on 12/18/16 04:00; Start 12/16/16 at 10:30; Stop 12/18/16 at 11:54; Status DC Vancomycin HCl 1.5 gm/Sodium Chloride 500 ml @ 250 mls/hr 1X ONCE IV Last administered on 12/16/16 14:08; Start 12/16/16 at 11:00; Stop 12/16/16 at 12:59 ; Status DC Piperacillin Sod/ Tazobactam Sod/ Sodium Chloride (Zosyn/Iv Sodium Chloride 0.9 % 100ml) 100 ml @ 200 mls/hr Q6HRS IV Last administered on 12/18/16 05:11; Start 12/16/16 at 12:00; Stop 12/18/16 at 11:54; Status DC Propofol 1000 mg 1,000 mg STK-MED ONCE IV ; Start 12/15/16 at 23:00; Stop at 13:28; Status DC Vancomycin HCl/ Sodium Chloride (Iv Sodium Chloride 0.9% 250ml) 250 ml @ 250 mls/hr Q12H IV Last administered on 12/18/16 02:00; Start 12/17/16 at 02:00; Stop 12/18/16 at 03:45; Status DC Vancomycin HCl 1 each 1X ONCE MC Last administered on 12/18/16 01:30; Start 12/18/16 at 01:30; Stop 12/18/16 at 11:54; Status DC Hydralazine HCl (Apresoline) 10 mg PRN Q4HRS PRN IVP ELEVATED BP, SEE COMMENTS Last administered on 12/25/16 22:01; Start 12/17/16 at 12:15 Potassium Chloride 40 meq 40 meq 1X ONCE PO ; Start 12/17/16 at 18:15; Stop 09/22 at 18:16; Status Cancel Potassium Chloride 50 ml @ 50 mls/hr Q1H IV Last administered on 12/18/16 00: 55; Start 12/17/16 at 19:00; Stop 12/17/16 at 20:59; Status DC Vancomycin HCl/ Sodium Chloride (Iv Sodium Chloride 0.9% 250ml) 250 ml @ 250 mls/hr Q8H IV Last administered on 12/18/16 03:54; Start 12/18/16 at 04:00; Stop 12/18/16 at 11:54; Status DC Vancomycin HCl 1 each 1X ONCE MC ; Start 12/19/16 at 03:30; Stop 12/19/16 at 03 :30; Status DC Budesonide (Pulmicort) 0.5 mg RTBID NEB Last administered on 12/25/16 20:43; Start 12/18/16 at 08:00 Vecuronium Dora 6 mg 6 mg 1X ONCE IV Last administered on 12/18/16 13:09; Start 12/18/16 at 13:00; Stop 12/18/16 at 13:01; Status DC Magnesium Sulfate/ Dextrose 50 ml @ 25 mls/hr 1X ONCE IV Last administered on 12/18/16 15:34; Start 12/18/16 at 15:00; Stop 12/18/16 at 16:59; Status DC Potassium Chloride 100 ml @ 100 mls/hr Q1H IV Last administered on 12/18/16 18:17; Start 12/18/16 at 15:00; Stop 12/18/16 at 18:59; Status DC Cefazolin Sodium 1 gm/Sodium Chloride 50 ml @ 100 mls/hr Q8HRS IV Last administered on 12/22/16 05:34; Start 12/19/16 at 10:00; Stop 12/22/16 at 10:01 ; Status DC Magnesium Sulfate/ Dextrose 50 ml @ 25 mls/hr 1X ONCE IV Last administered on 12/19/16 10:42; Start 12/19/16 at 10:30; Stop 12/19/16 at 12:29; Status DC Sodium Chloride/ Potassium Chloride/ Potassium Phosphate/ Magnesium Sulfate/ Calcium Gluconate/ Multivitamins/ Minerals/Chromium/ Copper/Manganese/ Seleni/Zn /Total Parenteral Nutrition/Amino Acids/Dextrose/ Fat Emulsion Intravenous ( Sodium Chloride/ Potassium Phospha... 87.0013 ml @ 3.625 mls/hr TPN CONT IV ; Start 12/19/16 at 22:00; Stop 12/19/16 at 22:00; Status Cancel Info 1 each 1 each PRN DAILY PRN MC SEE COMMENTS; Start 12/19/16 at 10:00; Stop 12/19/16 at 10:00; Status DC Potassium Chloride (KCl Premix 10meq) 100 ml @ 100 mls/hr Q1H IV Last administered on 12/19/16 20:52; Start 12/19/16 at 11:00; Stop 12/19/16 at 14:59 ; Status DC Acetaminophen (Tylenol) 650 mg PRN Q6HRS PRN PO MILD PAIN / TEMP; Start at 13:45; Status Cancel Acetaminophen 650 mg 650 mg PRN Q6HRS PRN PEG MILD PAIN / TEMP Last administered on 12/25/16 21:04; Start 12/19/16 at 14:00 Potassium Chloride/Sodium Chloride (Iv Sodium Chloride 0.45%) 1,015 ml @ 75 mls /hr [id number] IV Last administered on 12/19/16 21:24; Start 12/19/16 at 21:30; Stop 12/20/16 at 08:48; Status DC Furosemide (Lasix) 20 mg 1X ONCE IVP Last administered on 12/20/16 09:09; Start 12/20/16 at 09:30; Stop 12/20/16 at 09:31; Status DC Iohexol (Omnipaque 300 Mg/ml) 100 ml STK-MED ONCE .ROUTE ; Start 12/20/16 at 16: 17; Stop 12/20/16 at 16:18; Status DC Lidocaine HCl 20 ml 20 ml STK-MED ONCE .ROUTE ; Start 12/20/16 at 16:17; Stop at 16:18; Status DC Heparin Sodium/ Sodium Chloride 500 ml @ As Directed STK-MED ONCE .ROUTE ; Start 12/20/16 at 16:17; Stop 12/20/16 at 16:18; Status DC Heparin Sodium/ Sodium Chloride 1,000 unit 1X ONCE IART Last administered on 16:45; Start 12/20/16 at 16:45; Stop 12/20/16 at 16:46; Status DC Iohexol (Omnipaque 300 Mg/ml) 100 ml 1X ONCE IART Last administered on 16:45; Start 12/20/16 at 16:45; Stop 12/20/16 at 16:46; Status DC Lidocaine HCl 20 ml 1X ONCE IJ Last administered on 12/20/16 16:45; Start at 16:45; Stop 12/20/16 at 16:46; Status DC Furosemide (Lasix) 40 mg 1X ONCE IVP Last administered on 12/21/16 11:35; Start 12/21/16 at 10:15; Stop 12/21/16 at 10:17; Status DC Scopolamine (Transderm-Scop) 1 patch Q3DAYS TD ; Start 12/24/16 at 09:00; Status UNV Atropine Sulfate 1 drop 1 drop PRN Q2HR PRN SL SECRETIONS Last administered on 12/21/16 21:57; Start 12/21/16 at 19:30 Piperacillin Sod/ Tazobactam Sod/ Sodium Chloride (Zosyn/Iv Sodium Chloride 0.9 % 100ml) 100 ml @ 200 mls/hr Q6HRS IV Last administered on 12/26/16 06:07; Start 12/22/16 at 11:00 Piperacillin Sod/ Tazobactam Sod 1 each 1 each PRN DAILY PRN MC SEE COMMENTS; Start 12/22/16 at 10:00; Stop 12/22/16 at 10:12; Status DC Potassium Chloride (KCl Premix 20meq) 50 ml @ 50 mls/hr Q1H IV Last administered on 12/22/16 17:22; Start 12/22/16 at 15:00; Stop 12/22/16 at 16:59 ; Status DC Furosemide (Lasix) 20 mg DAILY IVP Last administered on 12/25/16 08:23; Start 12/22/16 at 15:30; Stop 12/29/16 at 15:29 Vancomycin HCl 1 each 1 each PRN DAILY PRN MC SEE COMMENTS Last administered on 12/25/16 11:06; Start 12/23/16 at 08:15 Vancomycin HCl 1.75 gm/Sodium Chloride 500 ml @ 250 mls/hr 1X ONCE IV Last administered on 12/23/16 11:23; Start 12/23/16 at 08:30; Stop 12/23/16 at 10:29 ; Status DC Vancomycin HCl/ Sodium Chloride (Iv Sodium Chloride 0.9% 250ml) 250 ml @ 250 mls/hr Q8H IV Last administered on 12/24/16 00:45; Start 12/23/16 at 16:30; Stop 12/24/16 at 09:39; Status DC Vancomycin HCl 1 each 1 each 1X ONCE MC Last administered on 12/24/16 08:00; Start 12/24/16 at 08:00; Stop 12/24/16 at 08:01; Status DC Levofloxacin/ Dextrose (LEVAQUIN 500mg PREMIX) 100 ml @ 100 mls/hr Q24H IV Last administered on 12/25/16 07:39; Start 12/23/16 at 08:30 Iohexol (Omnipaque 240 Mg/ml) 30 ml 1X ONCE PO Last administered on 12/23/16 11:09; Start 12/23/16 at 09:00; Stop 12/23/16 at 09:01; Status DC Iohexol (Omnipaque 300 Mg/ml) 75 ml 1X ONCE IV Last administered on 12/23/16 11:08; Start 12/23/16 at 09:00; Stop 12/23/16 at 09:01; Status DC Pantoprazole Sodium (Protonix Vial) 40 mg DAILYAC IVP Last administered on 12/25 07:39; Start 12/23/16 at 12:00 Ondansetron HCl (Zofran) 4 mg PRN Q6HRS PRN IV Nausea; Start 12/26/16 at 07:00 ; Stop 12/27/16 at 06:59 Fentanyl Citrate (Fentanyl 2ml Vial) 25 mcg PRN Q5MIN PRN IV MILD PAIN; Start 12/26/16 at 07:00; Stop 12/27/16 at 06:59 Fentanyl Citrate (Fentanyl 2ml Vial) 50 mcg PRN Q5MIN PRN IV MODERATE PAIN; Start 12/26/16 at 07:00; Stop 12/27/16 at 06:59 Morphine Sulfate 1 mg 1 mg PRN Q10MIN PRN IV SEVERE PAIN; Start 12/26/16 at 07: 00; Stop 12/27/16 at 06:59 Lactated Ringer's (Iv Lactated Ringers) 1,000 ml @ 30 mls/hr Q24H IV ; Start at 07:00; Stop 12/26/16 at 18:59 Lidocaine HCl 2 ml 1X PRN PRN ID IV START; Start 12/26/16 at 07:00; Stop at 06:59 Hydromorphone HCl (Dilaudid) 0.5 mg PRN Q10MIN PRN IV SEVERE PAIN, Second choice; Start 12/26/16 at 07:00; Stop 12/27/16 at 06:59 Prochlorperazine Edisylate 5 mg 5 mg PACU PRN PRN IV NAUSEA; Start 12/26/16 at 07:00; Stop 12/27/16 at 06:59 Vancomycin HCl 1.25 gm/Sodium Chloride 250 ml @ 167 mls/hr Q8H IV Last administered on 12/26/16 02:03; Start 12/24/16 at 10:00 Potassium Chloride (KCl Premix 20meq) 50 ml @ 50 mls/hr Q1H IV Last administered on 12/24/16 15:36; Start 12/24/16 at 10:15; Stop 12/24/16 at 12:14 ; Status DC Potassium Chloride (KCl Oral Soln) 40 meq 1X ONCE GT Last administered on 12/25 11:06; Start 12/25/16 at 10:30; Stop 12/25/16 at 10:31; Status DC Potassium Chloride (KCl Oral Soln) 40 meq 1X ONCE GT ; Start 12/25/16 at 10:15 ; Stop 12/25/16 at 10:15; Status DC Active Scripts Active Reported Benazepril Hcl 40 Mg Tablet 1 Tab PO DAILY Amlodipine Besylate 5 Mg Tablet 5 Mg PO DAILY Vitals/I & O Vital Sign - Last 24 Hours 12/25/16 12/25/16 12/25/16 12/25/16 08:00 08:00 08:35 09:00 Temp 100.8 100.8 Pulse 73 95 Resp 17 30 B/P 132/68 146/78 Pulse Ox 99 99 98 O2 Delivery Mechanical Ventilator Ventilator Ventilator Ventilator/Pressure support 12/25/16 12/25/16 12/25/16 12/25/16 09:37 10:00 11:00 12:00 Temp 98.7 98.7 Pulse 88 82 84 Resp 30 17 B/P 120/60 108/52 138/76 Pulse Ox 99 100 99 100 O2 Delivery Ventilator Ventilator/Pressure support Ventilator/Pressure support Ventilator/Pressure support 12/25/16 12/25/16 12/25/16 12/25/16 12:00 12:11 12:56 13:00 Pulse 86 Resp 22 B/P 145/80 Pulse Ox 98 98 94 O2 Delivery Mechanical Ventilator Ventilator Ventilator Ventilator/Pressure support 12/25/16 12/25/16 12/25/16 12/25/16 14:00 15:00 15:52 16:00 Pulse 90 95 Resp 20 20 B/P 139/88 127/64 Pulse Ox 100 100 98 O2 Delivery Ventilator Ventilator Ventilator Mechanical Ventilator 12/25/16 12/25/16 12/25/16 12/25/16 16:00 17:00 17:40 18:00 Temp 100.1 100.1 Pulse 89 99 96 Resp 19 18 20 B/P 151/81 146/77 150/84 Pulse Ox 99 98 98 100 O2 Delivery Ventilator Ventilator Ventilator Ventilator 12/25/16 12/25/16 12/25/16 12/25/16 19:00 20:00 20:00 20:44 Temp 100.4 100.4 Pulse 93 79 Resp 22 B/P 150/88 152/84 Pulse Ox 100 100 100 O2 Delivery Ventilator Mechanical Ventilator Ventilator 12/25/16 12/25/16 12/25/16 12/25/16 21:00 22:00 22:00 22:01 Pulse 90 84 87 89 Resp 19 B/P 159/91 151/81 151/81 159/91 Pulse Ox 100 100 100 12/25/16 12/25/16 12/25/1619/17 22:32 23:00 23:02 23:46 Temp 98.7 98.7 Pulse 85 Resp B/P 139/73 Pulse Ox 100 100 100 100 O2 Delivery Ventilator Ventilator Ventilator 12/25/16 12/26/16 12/26/16 12/26/16 23:59 00:00 00:00 01:00 Temp 98.7 98.7 98.7 98.7 Pulse 92 73 88 Resp B/P 135/68 135/68 153/71 Pulse Ox 100 100 100 O2 Delivery Mechanical Ventilator 12/26/16 12/26/16 12/26/16 12/26/16 02:00 02:20 03:00 04:00 Temp 98.7 98.7 Pulse 68 84 84 Resp B/P 110/59 153/79 133/80 Pulse Ox 100 100 99 99 O2 Delivery Ventilator Ventilator Ventilator 12/26/16 12/26/16 12/26/16 12/26/16 04:07 04:20 05:13 06:07 Temp 100.1 100.1 Pulse 101 91 Resp B/P 153/89 140/86 Pulse Ox 100 100 99 O2 Delivery Mechanical Ventilator Ventilator Ventilator Ventilator Intake and Output 12/25/16 12/25/16 12/26/16 15:00 23:00 07:00 Intake Total 205 ml 200 ml 435 ml Output Total 2560 ml 570 ml 270 ml Balance -2355 ml -370 ml 165 ml SANDRA PATTERSON MD Dec 26, 2016 07:47
[2016-12-26] MEDS: PANTOPRAZOLE IV PUSH 40 MG VIAL. IVP SCH (08:09)
--- NOTE | 2016-12-26 08:19 | RAD ---
Portable chest, 12/26/2016: History: Respiratory failure, intubation Comparison is made to yesterday's study. The ET tube tip lies well above the rico. An NG tube extends into the stomach. A right PICC extends into the inferior aspect of the superior vena cava. The heart size is unchanged. The pulmonary vascularity remains prominent. There is an ongoing left basilar opacity obscuring the hemidiaphragm compatible with pleural fluid and underlying atelectasis/infiltrate. This is unchanged. The right hemidiaphragm is better defined. Right-sided pleural fluid evident on the recent CT study is not clearly visible radiographically. No new abnormality is detected. IMPRESSION: 1. The various tubes and catheters remain in place in satisfactory positions. 2. Unchanged left basilar opacity compatible with pleural fluid and underlying atelectasis/infiltrate. 3. Improved aeration of the right base.
[2016-12-26] MEDS: BUDESONIDE 0.5 MG/2 ML NEBU NEB SCH ×2 (08:23→19:54)
[2016-12-26 08:40] LABS: BASO # 0.1 x10^3/uL (0.0-0.2); BASO % 1 % (0-3); EOS % 1 % (0-3); HEMATOCRIT 27.8 % (39.0-53.0); HEMOGLOBIN 9.6 g/dL (13.0-17.5); LYMPH # 0.9 x10^3/uL (1.0-4.8); LYMPH % 7 % (24-48); MEAN CORPUSCULAR HEMOGLOBIN 32 pg (25-35); MEAN CORPUSCULAR HGB CONC 35 g/dL (31-37); MEAN CORPUSCULAR VOLUME 94 fL (79-100); MONO % 10 % (0-9); NEUT % 81 % (31-73); PLATELET COUNT 381 x10^3/uL (140-400); RED BLOOD COUNT 2.97 x10^6/uL (4.30-5.70); RED CELL DISTRIBUTION WIDTH 13.2 % (11.5-14.5); WHITE BLOOD COUNT 11.7 x10^3/uL (4.0-11.0)
--- NOTE | 2016-12-26 08:44 | PDOC ---
Infectious Disease Note Subjective Subjective Intubated. ROS ROS unobtainable Vital Sign Vital Signs Vital Signs Date Time Temp Pulse Resp B/P Pulse Ox O2 Delivery O2 Flow Rate FiO2 12/26/16 06:07 91 22 140/86 99 Ventilator 12/26/16 05:13 100.1 100.1 Physical Exam PHYSICAL EXAM GENERAL: Intubated, mitt, alert HEENT: ETT. OGT. Incision on the right-side of scalp well-approx, slava. No redness or drainage. LUNGS: Clear HEART: S1S2, regular ABD: Soft, NT, BS present : Liu EXT: No edema, no cyanosis FRAME CLEANER: Arouses to name, no follow commands - moves right arm SKIN: No rash RUE-PICC. clean Objective Assessment Fever - improved overall. Vanc/Zosy/Levoflox started 12/23. Procalcitonin - min elevation. CT head mild residual effect 12/22 some mucosal thickening. F/u neg Leukocytosis ICH - s/p evac 12/15 Respiratory failure - intubated. Mod sized pleural effusion and IVC ETOH COPD Plan Plan of Care VancAngiesyn D/c Levaquin Monitor labs in am Trach today f/u cultures/cxr MARISOL SHANKAR MD Dec 26, 2016 08:44
[2016-12-26 08:49] LABS: HCO3 ABG 22 mmol/L (21-28); PCO2 ABG 27 mmHg (35-46); PH ABG 7.52 (7.35-7.45); PO2 ABG 68 mmHg (65-108); SAT O2 ABG 94 % (92-99)
[2016-12-26 08:51] LABS: FIO2 ABG 30
[2016-12-26] MEDS: FUROSEMIDE 20 MG/2 ML VIAL IVP SCH (08:56)
[2016-12-26] MEDS: LEVETIRACETAM 500 MG in IV NORMAL SALINE 100ML 100 ML IV SCH ×2 (08:56→20:44)
[2016-12-26] MEDS: VANCOMYCIN PER PHARMACY MC PRN (09:11)
[2016-12-26 09:16] LABS: CALCIUM 8.5 mg/dL (8.5-10.1); CREATININE 0.6 mg/dL (0.7-1.3); GFR 136.5; POTASSIUM 3.9 mmol/L (3.5-5.1)
--- NOTE | 2016-12-26 11:00 | PDOC2 ---
GI CONSULT Reason For Consult: PEG HPI: HPI: 61 y/o male admitted 12/15/16 w/ encephalopathy, was intubated. Has undergone craniotomy w/ hematoma evacuation/drain and IVC filter placement. Additionally followed by ID for fever, leukocytosis. Has remained on vent (not sedated) w/ trach placement scheduled for today. GI consult requested for PEG tube placement. and daughter in room want to proceed. They deny chronic GI issues, no previous EGD or colonoscopy, no previous abd surgeries. PMH: PMH: HTN, COPD, ?alcoholism, left ankle surgery, right knee surgery FH: Family History: Cancer (father - colon cancer) Social History: Smoke: 1 pack per day ALCOHOL: other ROS: Unobtainable. VItals: Vitals: Vital Signs Date Time Temp Pulse Resp B/P Pulse Ox O2 Delivery O2 Flow Rate FiO2 12/26/16 10:00 84 18 124/74 100 Ventilator 12/26/16 08:00 99.8 99.8 Labs: Labs: Laboratory Tests Test 12/26/16 08:05 12/26/16 08:15 White Blood Count 11.7x10^3/uL (4.0-11.0) Red Blood Count 2.97x10^6/uL (4.30-5.70) Hemoglobin 9.6g/dL (13.0-17.5) Hematocrit 27.8% (39.0-53.0) Mean Corpuscular Volume 94fL (79-100) Mean Corpuscular Hemoglobin 32pg (25-35) Mean Corpuscular Hemoglobin Concent 35g/dL (31-37) Red Cell Distribution Width 13.2% (11.5-14.5) Platelet Count 381x10^3/uL (140-400) Neutrophils (%) (Auto) 81% (31-73) Lymphocytes (%) (Auto) 7% (24-48) Monocytes (%) (Auto) 10% (0-9) Eosinophils (%) (Auto) 1% (0-3) Basophils (%) (Auto) 1% (0-3) Neutrophils # (Auto) 9.5x10^3uL (1.8-7.7) Lymphocytes # (Auto) 0.9x10^3/uL (1.0-4.8) Monocytes # (Auto) 1.2x10^3/uL (0.0-1.1) Eosinophils # (Auto) 0.1x10^3/uL (0.0-0.7) Basophils # (Auto) 0.1x10^3/uL (0.0-0.2) Sodium Level 130mmol/L (136-145) Potassium Level 3.9mmol/L (3.5-5.1) Chloride Level 96mmol/L (98-107) Carbon Dioxide Level 26mmol/L (21-32) Anion Gap 8 (6-14) Blood Urea Nitrogen 16mg/dL (8-26) Creatinine 0.6mg/dL (0.7-1.3) Estimated GFR (Cockcroft-Gault) 136.5 Glucose Level 102mg/dL (70-99) Calcium Level 8.5mg/dL (8.5-10.1) O2 Saturation 94% (92-99) Arterial Blood pH 7.52 (7.35-7.45) Arterial Blood pCO2 at Patient Temp 27mmHg (35-46) Arterial Blood pO2 at Patient Temp 68mmHg (65-108) Arterial Blood HCO3 22mmol/L (21-28) Arterial Blood Base Excess 0mmol/L (-3-3) FiO2 30 Allergies: Coded Allergies: No Known Drug Allergies (Unverified , 12/15/16) Medications: Please see EMR. Imaging: Imaging: CXR 12/26/16 IMPRESSION: 1. The various tubes and catheters remain in place in satisfactory positions. 2. Unchanged left basilar opacity compatible with pleural fluid and underlying atelectasis/infiltrate. 3. Improved aeration of the right base. Chest/Abd/Pelvis CT 12/23/16 IMPRESSION: 1. Moderate sized bilateral pleural effusions with moderate underlying atelectasis posteriorly in both lower lobes. 2. Tiny nonspecific right middle lobe pulmonary nodule. 3. Calcific plaquing of the aorta and coronary arteries. 4. Sigmoid diverticulosis. 5. Anasarca. 6. An inferior vena cava filter is in place. PE: GEN: NAD HEENT: recent craniotomy LUNGS: on vent HEART: RRR ABD: BS+, S/ND/NT EXTREMITY: No edema SKIN: No rashes NEURO/PSYCH: moves some, opens eyes A/P: A/P: S/p craniotomy for intracerebral hemorrhage -in ICU on vent w/ tracheostomy planned today -GI consulted for PEG, family wants to proceed Fever, leukocytosis, anemia -ID following, on atbx -on PPI -- Will review w/ Dr. Orozco re: scheduling PEG. HANNAH WISE Dec 26, 2016 11:00
[2016-12-26] MEDS ORDERED: PROPOFOL 20 ML IV ONE (11:34)
[2016-12-26] MEDS ORDERED: FENTANYL PF 100 MCG/2 ML VIAL. ONE (12:14)
[2016-12-26] MEDS ORDERED: ROCURONIUM 50 MG/5 ML VIAL. ONE (12:14)
[2016-12-26] MEDS ORDERED: PHENYLEPHRINE in 0.9% NACL PF 1 MG/10 ML DISP.SYRIN. IV ONE (12:20)
[2016-12-26] MEDS ORDERED: NEOSTIGMINE METHYLSULFATE 5 MG/5 ML SYRINGE. ONE (12:57)
[2016-12-26] MEDS ORDERED: GLYCOPYRROLATE 1 MG/5 ML VIAL. ONE (12:57)
[2016-12-26] MEDS ORDERED: SEVOFLURANE 16 TO 30 MINUTES. IH ONE (13:11)
[2016-12-26] MEDS: FENTANYL PF 100 MCG/2 ML VIAL. IV PRN ×2 (13:15→15:20)
--- NOTE | 2016-12-26 13:42 | PDOC ---
BRIEF OPERATIVE NOTE Date: Dec 26, 2016 Pre-Op Diagnosis Ventilator dependent respiratory failure Intracranial hemorrhage Post-Op Diagnosis Ventilator dependent respiratory failure Intracranial hemorrhage Procedure Performed Tracheostomy Surgeon Tenisha Villegas MD Anesthesia Type: General Blood Loss 5 mls IV Fluid N/A Urine Output N/A Specimens Obtained None Complications None Additional Remarks 8 Fr, non fenestrated, cuffed tracheostomy tube TENISHA VILLEGAS MD Dec 26, 2016 13:42
--- NOTE | 2016-12-26 13:46 | PDOC4 ---
Operative Note Operative Note Date: Dec 26, 2016 Preoperative diagnosis Ventilator dependent respiratory failure Intracranial hemorrhage Postoperative diagnosis Ventilator dependent respiratory failure Intracranial hemorrhage Operation Tracheostomy Surgeon Tenisha Villegas MD Anesthesia General Blood loss 5 mls IV fluids N/A Urine output N/A Specimens obtained None Complications None Additional remarks 8 Fr, non fenestrated, cuffed tracheostomy tube Indication Mr Barrera is a 61-year-old male who was admitted 10 days ago with altered mental status. He was intubated in the emergency room and a CT of the head showed a large frontal lobe and intraventricular hemorrhage, for which he underwent emergent craniotomy. He has been intubated ever since with minimal neurological recovery thus far. He is on minimal vent settings. A tracheostomy was indicated. The risks, benefits and limitations of the procedure were explained to the patient's family who agreed to proceed. Informed consent was obtained. Procedure The patient's ID was confirmed using 2 unique identifies. The patient was transferred to the OR intubated. He was placed supine on the operating table with both arms tucked. A shoulder roll was also placed to facilitate mild neck extension which helped identify neck landmarks. The patient's neck was prepped and draped in the usual sterile surgical fashion. The patient has been receiving therapeutic antibiotics. A timeout was then performed. A 3 cm transverse incision in the skin crease just below the level of the cricoid cartilage was made. The incision was deepened through the subcutaneous tissues followed by the platysma. The strap muscles were bluntly at the median raphe. The isthmus of the thyroid was identified and divided using electrocautery. The pretracheal fascia was incised. Hemostasis of the thyroid gland and surrounding tissues was performed. I clearly identified the cricoid cartilage, the first, second and third tracheal rings. I then asked anesthesia to deflate the endotracheal tube balloon. The first and second tracheal ring anteriorly were then excised. The endotracheal tube was slowly withdrawn and a 8 fr cuffed non fenestrated tracheostomy tube was inserted with ease. The inner cannula was placed and secured. The tracheostomy was connected to the ventilator with an excellent tidal volume return. Vertical mattress sutures with a 2-0 nylon stitch were used to reapproximate the incision on the lateral aspects of the tracheostomy. The tracheostomy was secured with four 2-0 nylon' s and a trach collar. At the end of the procedure, the instrument, sponge and needle counts were correct. The patient was transferred back to the ICU in stable condition. TENISHA VILLEGAS MD Dec 26, 2016 13:46
--- NOTE | 2016-12-26 15:48 | PDOC ---
PULMONARY PROGRESS NOTES Subjective PT NOW BACK FROM TRACH Vitals Vital Signs Date Time Temp Pulse Resp B/P Pulse Ox O2 Delivery O2 Flow Rate FiO2 12/26/16 15:20 Ventilator 12/26/16 15:19 96 12/26/16 14:30 78 22 136/71 12/26/16 13:00 98.6 98.6 HEENT: Other (s/p crani, perrl, orally intubated, nose clear. ) Lungs: Clear Cardiovascular: S1, S2 Abdomen: Soft, Non-tender, Other (no mass) Extremities: No Edema Skin: Warm Labs Laboratory Tests Test 12/25/16 06:45 12/25/16 08:00 12/26/16 08:05 12/26/16 08:15 White Blood Count 11.9x10^3/uL (4.0-11.0) 11.7x10^3/uL (4.0-11.0) Red Blood Count 2.90x10^6/uL (4.30-5.70) 2.97x10^6/uL (4.30-5.70) Hemoglobin 9.3g/dL (13.0-17.5) 9.6g/dL (13.0-17.5) Hematocrit 27.6% (39.0-53.0) 27.8% (39.0-53.0) Mean Corpuscular Volume 95fL (79-100) 94fL (79-100) Mean Corpuscular Hemoglobin 32pg (25-35) 32pg (25-35) Mean Corpuscular Hemoglobin Concent 34g/dL (31-37) 35g/dL (31-37) Red Cell Distribution Width 12.8% (11.5-14.5) 13.2% (11.5-14.5) Platelet Count 347x10^3/uL (140-400) 381x10^3/uL (140-400) Neutrophils (%) (Auto) 81% (31-73) 81% (31-73) Lymphocytes (%) (Auto) 8% (24-48) 7% (24-48) Monocytes (%) (Auto) 9% (0-9) 10% (0-9) Eosinophils (%) (Auto) 1% (0-3) 1% (0-3) Basophils (%) (Auto) 1% (0-3) 1% (0-3) Neutrophils # (Auto) 9.7x10^3uL (1.8-7.7) 9.5x10^3uL (1.8-7.7) Lymphocytes # (Auto) 1.0x10^3/uL (1.0-4.8) 0.9x10^3/uL (1.0-4.8) Monocytes # (Auto) 1.1x10^3/uL (0.0-1.1) 1.2x10^3/uL (0.0-1.1) Eosinophils # (Auto) 0.1x10^3/uL (0.0-0.7) 0.1x10^3/uL (0.0-0.7) Basophils # (Auto) 0.1x10^3/uL (0.0-0.2) 0.1x10^3/uL (0.0-0.2) Sodium Level 132mmol/L (136-145) 130mmol/L (136-145) Potassium Level 3.3mmol/L (3.5-5.1) 3.9mmol/L (3.5-5.1) Chloride Level 97mmol/L (98-107) 96mmol/L (98-107) Carbon Dioxide Level 28mmol/L (21-32) 26mmol/L (21-32) Anion Gap 7 (6-14) 8 (6-14) Blood Urea Nitrogen 18mg/dL (8-26) 16mg/dL (8-26) Creatinine 0.6mg/dL (0.7-1.3) 0.6mg/dL (0.7-1.3) Estimated GFR (Cockcroft-Gault) 136.5 136.5 BUN/Creatinine Ratio 30 (6-20) Glucose Level 122mg/dL (70-99) 102mg/dL (70-99) Calcium Level 8.2mg/dL (8.5-10.1) 8.5mg/dL (8.5-10.1) Total Bilirubin 0.4mg/dL (0.2-1.0) Aspartate Amino Transf (AST/SGOT) 30U/L (15-37) Alanine Aminotransferase (ALT/SGPT) 34U/L (16-63) Alkaline Phosphatase 56U/L (46-116) Total Protein 5.7g/dL (6.4-8.2) Albumin 2.1g/dL (3.4-5.0) Albumin/Globulin Ratio 0.6 (1.0-1.7) O2 Saturation 96% (92-99) 94% (92-99) Arterial Blood pH 7.53 (7.35-7.45) 7.52 (7.35-7.45) Arterial Blood pH (Temp corrected) 7.51 Arterial Blood pCO2 at Patient Temp 33mmHg (35-46) 27mmHg (35-46) Arterial Blood pCO2 (Temp correct) 34mmHg Arterial Blood pO2 at Patient Temp 82mmHg (65-108) 68mmHg (65-108) Arterial Blood pO2 (Temp corrected) 88mmHg Arterial Blood HCO3 27mmol/L (21-28) 22mmol/L (21-28) Arterial Blood Base Excess 4mmol/L (-3-3) 0mmol/L (-3-3) FiO2 30 30 Laboratory Tests Test 12/26/16 08:05 12/26/16 08:15 White Blood Count 11.7x10^3/uL (4.0-11.0) Red Blood Count 2.97x10^6/uL (4.30-5.70) Hemoglobin 9.6g/dL (13.0-17.5) Hematocrit 27.8% (39.0-53.0) Mean Corpuscular Volume 94fL (79-100) Mean Corpuscular Hemoglobin 32pg (25-35) Mean Corpuscular Hemoglobin Concent 35g/dL (31-37) Red Cell Distribution Width 13.2% (11.5-14.5) Platelet Count 381x10^3/uL (140-400) Neutrophils (%) (Auto) 81% (31-73) Lymphocytes (%) (Auto) 7% (24-48) Monocytes (%) (Auto) 10% (0-9) Eosinophils (%) (Auto) 1% (0-3) Basophils (%) (Auto) 1% (0-3) Neutrophils # (Auto) 9.5x10^3uL (1.8-7.7) Lymphocytes # (Auto) 0.9x10^3/uL (1.0-4.8) Monocytes # (Auto) 1.2x10^3/uL (0.0-1.1) Eosinophils # (Auto) 0.1x10^3/uL (0.0-0.7) Basophils # (Auto) 0.1x10^3/uL (0.0-0.2) Sodium Level 130mmol/L (136-145) Potassium Level 3.9mmol/L (3.5-5.1) Chloride Level 96mmol/L (98-107) Carbon Dioxide Level 26mmol/L (21-32) Anion Gap 8 (6-14) Blood Urea Nitrogen 16mg/dL (8-26) Creatinine 0.6mg/dL (0.7-1.3) Estimated GFR (Cockcroft-Gault) 136.5 Glucose Level 102mg/dL (70-99) Calcium Level 8.5mg/dL (8.5-10.1) O2 Saturation 94% (92-99) Arterial Blood pH 7.52 (7.35-7.45) Arterial Blood pCO2 at Patient Temp 27mmHg (35-46) Arterial Blood pO2 at Patient Temp 68mmHg (65-108) Arterial Blood HCO3 22mmol/L (21-28) Arterial Blood Base Excess 0mmol/L (-3-3) FiO2 30 Medications Active Scripts Medications Dose Route/Sig Days Date Category Benazepril Hcl 40 Mg Tablet 1 Tab PO DAILY 12/16/16 Reported Amlodipine Besylate 5 Mg Tablet 5 Mg PO DAILY 12/16/16 Reported Comments LLL INFILTRATE EFFUSION BETTER Impression . IMPRESSION: 1. Acute respiratory failure secondary ICH 2. 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 3. Underlying chronic obstructive pulmonary disease, unknown FEV1, smoked for 40 years. 4. Underlying alcoholism. 5. Nutrition will need a PEG 6. Fever per ID 7. Nutrition per tube feeding 8. S/P ICV filter 9. ABNORMAL CXR COMPATIBLE WITH FLUID OVERLOAD 10. S/P TRACH 12/26 Plan . S/P TRACH PEG IN AM? CXR IS BETTER WITH LASIX PRN VERSED, FENTANYL TUBE FEEDING FOR NOW S/P IVC SCOPOLAMINE PATCH D/W ROQUE HUDDLESTON MD Dec 26, 2016 15:48
[2016-12-26] MEDS ORDERED: SCOPOLAMINE 1.5MG PATCH. TD SCH (16:00)
--- NOTE | 2016-12-26 16:44 | RAD ---
Portable chest, 12/26/2016: History: Check tracheostomy tube placement Comparison is made to the study of earlier the same day. A tracheostomy tube has been inserted with its tip located 5 cm above the rico. A right PICC extends into the superior vena cava. The NG tube has been removed. The heart size and pulmonary vascularity are normal. There is a mild ongoing left basilar opacity, unchanged since earlier in the day. No new pulmonary abnormality is seen. There is no evidence of pneumothorax. IMPRESSION: 1. Interval insertion of a right tracheostomy tube in satisfactory position. 2. No other significant change since earlier in the day.
[2016-12-27] VITALS (23 sets, daily range): BP systolic 109–163; BP diastolic 60–95
[2016-12-27] MEDS: PIPERACILLIN/TAZOBACTAM 4.5 GM in IV NORMAL SALINE 100ML 100 ML IV SCH ×4 (00:11→18:37)
[2016-12-27] MEDS: VANCOMYCIN 1.25 GM in IV NORMAL SALINE 250ML 250 ML IV SCH (02:04)
[2016-12-27 05:05] LABS: BASO # 0.1 x10^3/uL (0.0-0.2); BASO % 1 % (0-3); EOS % 1 % (0-3); HEMATOCRIT 28.4 % (39.0-53.0); HEMOGLOBIN 9.9 g/dL (13.0-17.5); LYMPH % 8 % (24-48); MEAN CORPUSCULAR HEMOGLOBIN 32 pg (25-35); MEAN CORPUSCULAR HGB CONC 35 g/dL (31-37); MEAN CORPUSCULAR VOLUME 93 fL (79-100); MONO % 11 % (0-9); NEUT % 79 % (31-73); PLATELET COUNT 393 x10^3/uL (140-400); RED BLOOD COUNT 3.06 x10^6/uL (4.30-5.70); RED CELL DISTRIBUTION WIDTH 12.7 % (11.5-14.5); WHITE BLOOD COUNT 12.3 x10^3/uL (4.0-11.0)
[2016-12-27 06:17] LABS: CALCIUM 8.2 mg/dL (8.5-10.1); CREATININE 0.7 mg/dL (0.7-1.3); GFR 114.3; POTASSIUM 3.8 mmol/L (3.5-5.1)
[2016-12-27] MEDS ORDERED: LIDOCAINE 1% 1 ML SYRINGE. ID PRN (07:00)
[2016-12-27] MEDS ORDERED: ONDANSETRON PF 4 MG/2 ML VIAL. IV PRN (07:00)
[2016-12-27] MEDS ORDERED: HYDROMORPHONE 2 MG/ML VIAL. IV PRN (07:00)
[2016-12-27] MEDS ORDERED: IV RINGERS,LACTATED 1000ML 1,000 ML IV SCH (07:00)
[2016-12-27] MEDS ORDERED: PROCHLORPERAZINE 10 MG/2 ML VIAL. IV PRN (07:00)
[2016-12-27] MEDS ORDERED: MORPHINE SULFATE 2 MG/ML DISP.SYRIN. IV PRN (07:00)
[2016-12-27] MEDS ORDERED: FENTANYL PF 100 MCG/2 ML VIAL. IV PRN ×2 (07:00)
[2016-12-27] MEDS: BUDESONIDE 0.5 MG/2 ML NEBU NEB SCH ×2 (07:12→20:07)
--- NOTE | 2016-12-27 07:23 | PDOC ---
Infectious Disease Note Subjective Subjective Intubated via trach ROS ROS Unobtainable Vital Sign Vital Signs Vital Signs Date Time Temp Pulse Resp B/P Pulse Ox O2 Delivery O2 Flow Rate FiO2 12/27/16 06:00 86 20 154/79 100 Ventilator 12/27/16 04:00 98.2 98.2 Physical Exam PHYSICAL EXAM GENERAL: Intubated via trach, mitt, Appears comfortable HEENT: ETT. OGT. Incision on the right-side of scalp well-approx, slava. No redness or drainage. LUNGS: Clear HEART: S1S2, regular ABD: Soft, NT, BS present : Liu EXT: No edema, no cyanosis FORTUNE TELLER: Arouses to name, no follow commands - moves right arm SKIN: No rash RUE-PICC. clean Labs Lab Laboratory Tests Test 12/26/16 08:05 12/26/16 08:15 12/27/16 04:45 White Blood Count 11.7x10^3/uL (4.0-11.0) 12.3x10^3/uL (4.0-11.0) Red Blood Count 2.97x10^6/uL (4.30-5.70) 3.06x10^6/uL (4.30-5.70) Hemoglobin 9.6g/dL (13.0-17.5) 9.9g/dL (13.0-17.5) Hematocrit 27.8% (39.0-53.0) 28.4% (39.0-53.0) Mean Corpuscular Volume 94fL (79-100) 93fL (79-100) Mean Corpuscular Hemoglobin 32pg (25-35) 32pg (25-35) Mean Corpuscular Hemoglobin Concent 35g/dL (31-37) 35g/dL (31-37) Red Cell Distribution Width 13.2% (11.5-14.5) 12.7% (11.5-14.5) Platelet Count 381x10^3/uL (140-400) 393x10^3/uL (140-400) Neutrophils (%) (Auto) 81% (31-73) 79% (31-73) Lymphocytes (%) (Auto) 7% (24-48) 8% (24-48) Monocytes (%) (Auto) 10% (0-9) 11% (0-9) Eosinophils (%) (Auto) 1% (0-3) 1% (0-3) Basophils (%) (Auto) 1% (0-3) 1% (0-3) Neutrophils # (Auto) 9.5x10^3uL (1.8-7.7) 9.7x10^3uL (1.8-7.7) Lymphocytes # (Auto) 0.9x10^3/uL (1.0-4.8) 1.0x10^3/uL (1.0-4.8) Monocytes # (Auto) 1.2x10^3/uL (0.0-1.1) 1.3x10^3/uL (0.0-1.1) Eosinophils # (Auto) 0.1x10^3/uL (0.0-0.7) 0.1x10^3/uL (0.0-0.7) Basophils # (Auto) 0.1x10^3/uL (0.0-0.2) 0.1x10^3/uL (0.0-0.2) Sodium Level 130mmol/L (136-145) 131mmol/L (136-145) Potassium Level 3.9mmol/L (3.5-5.1) 3.8mmol/L (3.5-5.1) Chloride Level 96mmol/L (98-107) 96mmol/L (98-107) Carbon Dioxide Level 26mmol/L (21-32) 23mmol/L (21-32) Anion Gap 8 (6-14) 12 (6-14) Blood Urea Nitrogen 16mg/dL (8-26) 14mg/dL (8-26) Creatinine 0.6mg/dL (0.7-1.3) 0.7mg/dL (0.7-1.3) Estimated GFR (Cockcroft-Gault) 136.5 114.3 Glucose Level 102mg/dL (70-99) 80mg/dL (70-99) Calcium Level 8.5mg/dL (8.5-10.1) 8.2mg/dL (8.5-10.1) O2 Saturation 94% (92-99) Arterial Blood pH 7.52 (7.35-7.45) Arterial Blood pCO2 at Patient Temp 27mmHg (35-46) Arterial Blood pO2 at Patient Temp 68mmHg (65-108) Arterial Blood HCO3 22mmol/L (21-28) Arterial Blood Base Excess 0mmol/L (-3-3) FiO2 30 Objective Assessment Fever - improved overall. Vanc/Zosy/Levoflox started 12/23. Procalcitonin - min elevation. CT head mild residual effect 12/22 some mucosal thickening. F/u neg Leukocytosis - s/p trach ICH - s/p evac 12/15 Respiratory failure - intubated. Mod sized pleural effusion and IVC ETOH COPD Plan Plan of Care D/c Vanc Cont Zosyn Monitor labs in am f/u cultures/cxr MARISOL SHANKAR MD Dec 27, 2016 07:23
[2016-12-27 07:30] LABS: HCO3 ABG 22 mmol/L (21-28); PCO2 ABG 29 mmHg (35-46); PH ABG 7.51 (7.35-7.45); PO2 ABG 76 mmHg (65-108); SAT O2 ABG 95 % (92-99)
[2016-12-27 07:34] LABS: FIO2 ABG 30
[2016-12-27] MEDS: PANTOPRAZOLE IV PUSH 40 MG VIAL. IVP SCH (08:53)
[2016-12-27] MEDS: FUROSEMIDE 20 MG/2 ML VIAL IVP SCH (08:53)
[2016-12-27] MEDS: LEVETIRACETAM 500 MG in IV NORMAL SALINE 100ML 100 ML IV SCH ×2 (09:04→21:47)
--- NOTE | 2016-12-27 09:23 | PDOC ---
PROGRESS NOTES Subjective Subjective late entry- patient seen 12-26-16 at 1030 opens eyes intermittently , following some commands per group marketing vp at bedside Objective Objective Vital Signs Date Time Temp Pulse Resp B/P Pulse Ox O2 Delivery O2 Flow Rate FiO2 12/27/16 07:12 100 Ventilator 12/27/16 06:00 86 20 154/79 12/27/16 04:00 98.2 98.2 Intake and Output 12/27/16 07:00 Intake Total 805 ml Output Total 3212 ml Balance -2407 ml Intake Oral 0 ml IV Total 805 ml Tube Feeding 0 ml Output Urine Total 3212 ml # Bowel Movements 1 Physical Exam General: Other (intuabted) Neuro: Other (pupils equal and reactive, opens eyes) Skin: Other (incision-dry, slava intact) Assessment Assessment Problems Medical Problems: (1) Intraparenchymal hematoma of brain Status: Acute Plan Plan of Care scheduled for trach today wean from vent as tolerated d/w RN and family Comment Review of Relevant I have reviewed the following items jose alfredo (where applicable) has been applied. Labs Laboratory Tests Test 12/26/16 08:05 12/26/16 08:15 12/27/16 04:45 12/27/16 07:10 White Blood Count 11.7x10^3/uL (4.0-11.0) 12.3x10^3/uL (4.0-11.0) Red Blood Count 2.97x10^6/uL (4.30-5.70) 3.06x10^6/uL (4.30-5.70) Hemoglobin 9.6g/dL (13.0-17.5) 9.9g/dL (13.0-17.5) Hematocrit 27.8% (39.0-53.0) 28.4% (39.0-53.0) Mean Corpuscular Volume 94fL (79-100) 93fL (79-100) Mean Corpuscular Hemoglobin 32pg (25-35) 32pg (25-35) Mean Corpuscular Hemoglobin Concent 35g/dL (31-37) 35g/dL (31-37) Red Cell Distribution Width 13.2% (11.5-14.5) 12.7% (11.5-14.5) Platelet Count 381x10^3/uL (140-400) 393x10^3/uL (140-400) Neutrophils (%) (Auto) 81% (31-73) 79% (31-73) Lymphocytes (%) (Auto) 7% (24-48) 8% (24-48) Monocytes (%) (Auto) 10% (0-9) 11% (0-9) Eosinophils (%) (Auto) 1% (0-3) 1% (0-3) Basophils (%) (Auto) 1% (0-3) 1% (0-3) Neutrophils # (Auto) 9.5x10^3uL (1.8-7.7) 9.7x10^3uL (1.8-7.7) Lymphocytes # (Auto) 0.9x10^3/uL (1.0-4.8) 1.0x10^3/uL (1.0-4.8) Monocytes # (Auto) 1.2x10^3/uL (0.0-1.1) 1.3x10^3/uL (0.0-1.1) Eosinophils # (Auto) 0.1x10^3/uL (0.0-0.7) 0.1x10^3/uL (0.0-0.7) Basophils # (Auto) 0.1x10^3/uL (0.0-0.2) 0.1x10^3/uL (0.0-0.2) Sodium Level 130mmol/L (136-145) 131mmol/L (136-145) Potassium Level 3.9mmol/L (3.5-5.1) 3.8mmol/L (3.5-5.1) Chloride Level 96mmol/L (98-107) 96mmol/L (98-107) Carbon Dioxide Level 26mmol/L (21-32) 23mmol/L (21-32) Anion Gap 8 (6-14) 12 (6-14) Blood Urea Nitrogen 16mg/dL (8-26) 14mg/dL (8-26) Creatinine 0.6mg/dL (0.7-1.3) 0.7mg/dL (0.7-1.3) Estimated GFR (Cockcroft-Gault) 136.5 114.3 Glucose Level 102mg/dL (70-99) 80mg/dL (70-99) Calcium Level 8.5mg/dL (8.5-10.1) 8.2mg/dL (8.5-10.1) O2 Saturation 94% (92-99) 95% (92-99) Arterial Blood pH 7.52 (7.35-7.45) 7.51 (7.35-7.45) Arterial Blood pCO2 at Patient Temp 27mmHg (35-46) 29mmHg (35-46) Arterial Blood pO2 at Patient Temp 68mmHg (65-108) 76mmHg (65-108) Arterial Blood HCO3 22mmol/L (21-28) 22mmol/L (21-28) Arterial Blood Base Excess 0mmol/L (-3-3) 0mmol/L (-3-3) FiO2 30 30 Laboratory Tests Test 12/27/16 04:45 12/27/16 07:10 White Blood Count 12.3x10^3/uL (4.0-11.0) Red Blood Count 3.06x10^6/uL (4.30-5.70) Hemoglobin 9.9g/dL (13.0-17.5) Hematocrit 28.4% (39.0-53.0) Mean Corpuscular Volume 93fL (79-100) Mean Corpuscular Hemoglobin 32pg (25-35) Mean Corpuscular Hemoglobin Concent 35g/dL (31-37) Red Cell Distribution Width 12.7% (11.5-14.5) Platelet Count 393x10^3/uL (140-400) Neutrophils (%) (Auto) 79% (31-73) Lymphocytes (%) (Auto) 8% (24-48) Monocytes (%) (Auto) 11% (0-9) Eosinophils (%) (Auto) 1% (0-3) Basophils (%) (Auto) 1% (0-3) Neutrophils # (Auto) 9.7x10^3uL (1.8-7.7) Lymphocytes # (Auto) 1.0x10^3/uL (1.0-4.8) Monocytes # (Auto) 1.3x10^3/uL (0.0-1.1) Eosinophils # (Auto) 0.1x10^3/uL (0.0-0.7) Basophils # (Auto) 0.1x10^3/uL (0.0-0.2) Sodium Level 131mmol/L (136-145) Potassium Level 3.8mmol/L (3.5-5.1) Chloride Level 96mmol/L (98-107) Carbon Dioxide Level 23mmol/L (21-32) Anion Gap 12 (6-14) Blood Urea Nitrogen 14mg/dL (8-26) Creatinine 0.7mg/dL (0.7-1.3) Estimated GFR (Cockcroft-Gault) 114.3 Glucose Level 80mg/dL (70-99) Calcium Level 8.2mg/dL (8.5-10.1) O2 Saturation 95% (92-99) Arterial Blood pH 7.51 (7.35-7.45) Arterial Blood pCO2 at Patient Temp 29mmHg (35-46) Arterial Blood pO2 at Patient Temp 76mmHg (65-108) Arterial Blood HCO3 22mmol/L (21-28) Arterial Blood Base Excess 0mmol/L (-3-3) FiO2 30 Microbiology 12/23/16 Blood Culture - Preliminary, Resulted NO GROWTH AFTER 3 DAYS Medications Current Medications Multivitamins/ Minerals/Folic Acid/Thiamine HCl/ Sodium Chloride (Infuvite Adult / Iv Sodium Chloride 0.9% 1000ml Bag) 1,011.2 ml @ 1,000 mls/ hr 1X ONCE IV Last administered on 12/15/16t 18:53; Start 12/15/16 at 18:45; Stop 12/15/16 at 19: 45; Status DC Ondansetron HCl 4 mg 4 mg 1X ONCE IV ; Start 12/15/16 at 18:45; Stop 12/15/16 at 18:46; Status DC Propofol 0 ml @ As Directed STK-MED ONCE IV ; Start 12/15/16 at 19:57; Stop at 19:58; Status DC Propofol (Diprivan) 50 ml @ As Directed STK-MED ONCE IV ; Start 12/15/16 at 19:57 ; Stop 12/15/16 at 19:58; Status DC Lidocaine HCl 100 mg STK-MED ONCE .ROUTE ; Start 12/15/16 at 20:45; Stop 12/15/16 at 20:46; Status DC Fentanyl Citrate (Fentanyl 2ml Vial) 100 mcg STK-MED ONCE .ROUTE ; Start at 20:46; Stop 12/15/16 at 20:47; Status DC Rocuronium Underwood (Zemuron) 50 mg STK-MED ONCE .ROUTE ; Start 12/15/16 at 20:46 ; Stop 12/15/16 at 20:47; Status DC Ondansetron HCl 4 mg 4 mg PRN Q8HRS PRN IV NAUSEA/VOMITING; Start 12/15/16 at 20 :45; Stop 12/15/16 at 23:44; Status DC Sodium Chloride (Iv Sodium Chloride 0.9% 1000ml Bag) 1,000 ml @ 100 mls/hr Q10H IV Last administered on 12/16/16 06:45; Start 12/15/16 at 20:45; Stop 08/22 at 07:25; Status DC Acetaminophen (Tylenol) 650 mg PRN Q4HRS PRN PO FEVER Last administered on 12/16 16:43; Start 12/15/16 at 20:45; Stop 12/16/16 at 20:44; Status DC Etomidate (Amidate) 20 mg 1X ONCE IV Last administered on 12/15/16 19:51; Start 12/15/16 at 20:45; Stop 12/15/16 at 20:53; Status DC Succinylcholine Chloride 100 mg 100 mg 1X ONCE IV Last administered on 19:52; Start 12/15/16 at 20:45; Stop 12/15/16 at 20:53; Status DC Bacitracin/Sodium Chloride (Iv Sodium Chloride 0.9% 1000ml Bag) 1,000 ml @ 1, 000 mls/hr 1X PERIOP ONCE IRR Last administered on 12/15/16 22:05; Start at 21:00; Stop 12/15/16 at 21:59; Status DC Cellulose 1 each STK-MED ONCE .ROUTE Last administered on 12/15/16 22:05; Start 12/15/16 at 20:58; Stop 12/15/16 at 20:59; Status DC Bupivacaine HCl/ Epinephrine Bitart (Sensorcain-Mpf Epi 0.5%-1:[id number]) 30 ml STK -MED ONCE .ROUTE Last administered on 12/15/16 22:05; Start 12/15/16 at 20:58; Stop 12/15/16 at 20:59; Status DC Gelatin (Gelfoam Size 100) 1 each STK-MED ONCE .ROUTE Last administered on 12/15 22:05; Start 12/15/16 at 20:58; Stop 12/15/16 at 20:59; Status DC Thrombin 25263 unit 20,000 unit STK-MED ONCE TP Last administered on 12/15/16 22:05; Start 12/15/16 at 20:58; Stop 12/15/16 at 20:59; Status DC Propofol (Diprivan) 20 ml @ As Directed STK-MED ONCE IV ; Start 12/15/16 at 21:06 ; Stop 12/15/16 at 21:07; Status DC Desflurane 60 ml 60 ml STK-MED ONCE IH ; Start 12/15/16 at 21:49; Stop 12/15/16 at 21:50; Status DC Cefazolin Sodium/ Dextrose 50 ml @ As Directed STK-MED ONCE IV ; Start 12/15/16 at 21:52; Stop 12/15/16 at 21:53; Status DC Mannitol (Mannitol Iv Soln) 500 ml @ As Directed STK-MED ONCE IV ; Start at 21:53; Stop 12/15/16 at 21:54; Status DC Phenylephrine HCl 1 mg 1 mg STK-MED ONCE IV ; Start 12/15/16 at 21:55; Stop at 21:56; Status DC Levetiracetam/ Sodium Chloride (Keppra/Iv Sodium Chloride 0.9% 100ml) 100 ml @ 400 mls/hr 1X ONCE IV Last administered on 12/15/16 22:30; Start 12/15/16 at 22 :15; Stop 12/15/16 at 22:29; Status DC Ondansetron HCl (Zofran) 4 mg PRN Q6HRS PRN IV Nausea; Start 12/15/16 at 22:30; Stop 12/16/16 at 14:48; Status DC Fentanyl Citrate (Fentanyl 2ml Vial) 25 mcg PRN Q5MIN PRN IV MILD PAIN; Start 12/15/16 at 22:30; Stop 12/16/16 at 13:00; Status DC Fentanyl Citrate (Fentanyl 2ml Vial) 50 mcg PRN Q5MIN PRN IV MODERATE PAIN; Start 12/15/16 at 22:30; Stop 12/16/16 at 13:00; Status DC Morphine Sulfate 1 mg 1 mg PRN Q10MIN PRN IV SEVERE PAIN; Start 12/15/16 at 22: 30; Stop 12/16/16 at 13:08; Status DC Lactated Ringer's (Iv Lactated Ringers) 1,000 ml @ 0 mls/hr Q0M IV ; Start 12/15 at 22:30; Stop 12/16/16 at 13:08; Status DC Lidocaine HCl 2 ml 1X PRN PRN ID IV START; Start 12/15/16 at 22:30; Stop at 13:08; Status DC Hydromorphone HCl (Dilaudid) 0.5 mg PRN Q10MIN PRN IV SEV PAIN,Second choice; Start 12/15/16 at 22:30; Stop 12/16/16 at 13:01; Status DC Prochlorperazine Edisylate 5 mg 5 mg PACU PRN PRN IV NAUSEA; Start 12/15/16 at 22:30; Stop 12/16/16 at 13:08; Status DC Propofol 100 ml @ As Directed STK-MED ONCE IV ; Start 12/15/16 at 23:13; Stop at 23:14; Status DC Nicardipine HCl/ Sodium Chloride (Cardene/Iv Sodium Chloride 0.9% 250ml) 270 ml @ 27 mls/hr TITRATE PRN IV PER PROTOCOL; Start 12/15/16 at 23:30 Diphenhydramine HCl (Benadryl) 25 mg PRN Q6HRS PRN PO ITCHING; Start 12/15/16 at 23:30; Stop 12/19/16 at 12:54; Status DC Diphenhydramine HCl 25 mg 25 mg PRN Q6HRS PRN IV ITCHING; Start 12/15/16 at 23: 30 Levetiracetam/ Sodium Chloride (Keppra/Iv Sodium Chloride 0.9% 100ml) 105 ml @ 400 mls/hr Q12HR IV Last administered on 12/27/16 09:04; Start 12/16/16 at 09: 00 Sodium Chloride (Normal Saline Flush) 3 ml QSHIFT PRN IV AFTER MEDS AND BLOOD DRAWS; Start 12/15/16 at 23:30 Dextrose 12.5 gm PRN Q15MIN PRN IV SEE COMMENTS; Start 12/15/16 at 23:30 Magnesium Hydroxide (Milk Of Magnesia) 2,400 mg PRN Q12HR PRN PO CONSTIPATION; Start 12/15/16 at 23:30 Ondansetron HCl 4 mg 4 mg PRN Q6HRS PRN IV NAUESA, 1ST CHOICE; Start 12/15/16 at 23:30 Cefazolin Sodium 1 gm/Sodium Chloride 50 ml @ 100 mls/hr Q8HRS IV Last administered on 12/16/16 21:05; Start 12/16/16 at 06:00; Stop 12/16/16 at 22:29 ; Status DC Potassium Chloride/Dextrose/ Sod Cl (KCl 20 Meq In D5W-1/2 NS) 1,000 ml @ 75 mls/hr [id number] IV Last administered on 12/18/16 18:18; Start 12/15/16 at 23:30 ; Stop 12/19/16 at 09:48; Status DC Fentanyl Citrate (Fentanyl 2ml Vial) 25 mcg PRN Q1HR PRN IV PAIN Last administered on 12/24/16 14:15; Start 12/15/16 at 23:30 Fentanyl Citrate (Fentanyl 2ml Vial) 50 mcg PRN Q1HR PRN IV PAIN Last administered on 12/26/16 15:20; Start 12/15/16 at 23:30 Info (Do NOT chart on this placeholder) 1 each 1X ONCE MC ; Start 12/16/16 at 04:00; Stop 12/16/16 at 04:01; Status UNV Pneumococcal Polyvalent Vaccine (Do NOT chart on this placeholder) 1 each 1X ONCE MC ; Start 12/16/16 at 04:00; Stop 12/16/16 at 04:01; Status UNV Influenza Virus Vaccine Quadrival (Fluarix Quad 2032-1136 Syringe) 0.5 ml ONCE ONCE VAX IM Last administered on 12/17/16 08:49; Start 12/16/16 at 09:00; Stop 12/16/16 at 09:01; Status DC Pneumococcal Polyvalent Vaccine 0.5 ml 0.5 ml ONCE ONCE VAX IM Last administered on 12/17/16 08:47; Start 12/16/16 at 09:00; Stop 12/16/16 at 09:01 ; Status DC Propofol 100 ml @ 0 mls/hr CONT PRN IV SEE I/O RECORD Last administered on 12/21 02:53; Start 12/16/16 at 04:30 Propofol 100 ml @ 0 mls/hr CONT PRN IV SEE I/O RECORD; Start 12/16/16 at 00:00 ; Stop 12/16/16 at 03:00; Status Cancel Propofol 100 ml @ 0 mls/hr CONT PRN IV SEE I/O RECORD Last administered on 20:00; Start 12/16/16 at 00:00; Stop 12/16/16 at 09:04; Status DC Multivitamins/ Minerals/Thiamine HCl/Folic Acid/ Sodium Chloride (Infuvite Adult / Iv Sodium Chloride 0.9% 1000ml Bag) 1,011.2 ml @ 100 mls/ hr DAILY IV Last administered on 12/22/16 08:31; Start 12/16/16 at 10:00; Stop 12/22/16 at 09:59 ; Status DC Lorazepam (Ativan) 2 mg PRN Q1HR PRN IV For CIWA 8-14 Last administered on 12/21 21:57; Start 12/16/16 at 10:00; Stop 12/23/16 at 19:01; Status DC Lorazepam (Ativan) 4 mg PRN Q1HR PRN IV For CIWA 15 or greater Last administered on 12/22/16 01:36; Start 12/16/16 at 10:00; Stop 12/23/16 at 19:01 ; Status DC Piperacillin Sod/ Tazobactam Sod (Zosyn Per Pharmacy) 1 each PRN DAILY PRN MC SEE COMMENTS; Start 12/16/16 at 10:30; Stop 12/18/16 at 11:54; Status DC Vancomycin HCl 1 each 1 each PRN DAILY PRN MC SEE COMMENTS Last administered on 12/18/16 04:00; Start 12/16/16 at 10:30; Stop 12/18/16 at 11:54; Status DC Vancomycin HCl 1.5 gm/Sodium Chloride 500 ml @ 250 mls/hr 1X ONCE IV Last administered on 12/16/16 14:08; Start 12/16/16 at 11:00; Stop 12/16/16 at 12:59 ; Status DC Piperacillin Sod/ Tazobactam Sod/ Sodium Chloride (Zosyn/Iv Sodium Chloride 0.9 % 100ml) 100 ml @ 200 mls/hr Q6HRS IV Last administered on 12/18/16 05:11; Start 12/16/16 at 12:00; Stop 12/18/16 at 11:54; Status DC Propofol 1000 mg 1,000 mg STK-MED ONCE IV ; Start 12/15/16 at 23:00; Stop at 13:28; Status DC Vancomycin HCl/ Sodium Chloride (Iv Sodium Chloride 0.9% 250ml) 250 ml @ 250 mls/hr Q12H IV Last administered on 12/18/16 02:00; Start 12/17/16 at 02:00; Stop 12/18/16 at 03:45; Status DC Vancomycin HCl 1 each 1X ONCE MC Last administered on 12/18/16 01:30; Start 12/18/16 at 01:30; Stop 12/18/16 at 11:54; Status DC Hydralazine HCl (Apresoline) 10 mg PRN Q4HRS PRN IVP ELEVATED BP, SEE COMMENTS Last administered on 12/25/16 22:01; Start 12/17/16 at 12:15 Potassium Chloride 40 meq 40 meq 1X ONCE PO ; Start 12/17/16 at 18:15; Stop 09/22 at 18:16; Status Cancel Potassium Chloride 50 ml @ 50 mls/hr Q1H IV Last administered on 12/18/16 00: 55; Start 12/17/16 at 19:00; Stop 12/17/16 at 20:59; Status DC Vancomycin HCl/ Sodium Chloride (Iv Sodium Chloride 0.9% 250ml) 250 ml @ 250 mls/hr Q8H IV Last administered on 12/18/16 03:54; Start 12/18/16 at 04:00; Stop 12/18/16 at 11:54; Status DC Vancomycin HCl 1 each 1X ONCE MC ; Start 12/19/16 at 03:30; Stop 12/19/16 at 03 :30; Status DC Budesonide (Pulmicort) 0.5 mg RTBID NEB Last administered on 12/27/16 07:12; Start 12/18/16 at 08:00 Vecuronium Underwood 6 mg 6 mg 1X ONCE IV Last administered on 12/18/16 13:09; Start 12/18/16 at 13:00; Stop 12/18/16 at 13:01; Status DC Magnesium Sulfate/ Dextrose 50 ml @ 25 mls/hr 1X ONCE IV Last administered on 12/18/16 15:34; Start 12/18/16 at 15:00; Stop 12/18/16 at 16:59; Status DC Potassium Chloride 100 ml @ 100 mls/hr Q1H IV Last administered on 12/18/16 18:17; Start 12/18/16 at 15:00; Stop 12/18/16 at 18:59; Status DC Cefazolin Sodium 1 gm/Sodium Chloride 50 ml @ 100 mls/hr Q8HRS IV Last administered on 12/22/16 05:34; Start 12/19/16 at 10:00; Stop 12/22/16 at 10:01 ; Status DC Magnesium Sulfate/ Dextrose 50 ml @ 25 mls/hr 1X ONCE IV Last administered on 12/19/16 10:42; Start 12/19/16 at 10:30; Stop 12/19/16 at 12:29; Status DC Sodium Chloride/ Potassium Chloride/ Potassium Phosphate/ Magnesium Sulfate/ Calcium Gluconate/ Multivitamins/ Minerals/Chromium/ Copper/Manganese/ Seleni/Zn /Total Parenteral Nutrition/Amino Acids/Dextrose/ Fat Emulsion Intravenous ( Sodium Chloride/ Potassium Phospha... 87.0013 ml @ 3.625 mls/hr TPN CONT IV ; Start 12/19/16 at 22:00; Stop 12/19/16 at 22:00; Status Cancel Info 1 each 1 each PRN DAILY PRN MC SEE COMMENTS; Start 12/19/16 at 10:00; Stop 12/19/16 at 10:00; Status DC Potassium Chloride (KCl Premix 10meq) 100 ml @ 100 mls/hr Q1H IV Last administered on 12/19/16 20:52; Start 12/19/16 at 11:00; Stop 12/19/16 at 14:59 ; Status DC Acetaminophen (Tylenol) 650 mg PRN Q6HRS PRN PO MILD PAIN / TEMP; Start at 13:45; Status Cancel Acetaminophen 650 mg 650 mg PRN Q6HRS PRN PEG MILD PAIN / TEMP Last administered on 12/25/16 21:04; Start 12/19/16 at 14:00 Potassium Chloride/Sodium Chloride (Iv Sodium Chloride 0.45%) 1,015 ml @ 75 mls /hr [id number] IV Last administered on 12/19/16 21:24; Start 12/19/16 at 21:30; Stop 12/20/16 at 08:48; Status DC Furosemide (Lasix) 20 mg 1X ONCE IVP Last administered on 12/20/16 09:09; Start 12/20/16 at 09:30; Stop 12/20/16 at 09:31; Status DC Iohexol (Omnipaque 300 Mg/ml) 100 ml STK-MED ONCE .ROUTE ; Start 12/20/16 at 16: 17; Stop 12/20/16 at 16:18; Status DC Lidocaine HCl 20 ml 20 ml STK-MED ONCE .ROUTE ; Start 12/20/16 at 16:17; Stop at 16:18; Status DC Heparin Sodium/ Sodium Chloride 500 ml @ As Directed STK-MED ONCE .ROUTE ; Start 12/20/16 at 16:17; Stop 12/20/16 at 16:18; Status DC Heparin Sodium/ Sodium Chloride 1,000 unit 1X ONCE IART Last administered on 16:45; Start 12/20/16 at 16:45; Stop 12/20/16 at 16:46; Status DC Iohexol (Omnipaque 300 Mg/ml) 100 ml 1X ONCE IART Last administered on 16:45; Start 12/20/16 at 16:45; Stop 12/20/16 at 16:46; Status DC Lidocaine HCl 20 ml 1X ONCE IJ Last administered on 12/20/16 16:45; Start at 16:45; Stop 12/20/16 at 16:46; Status DC Furosemide (Lasix) 40 mg 1X ONCE IVP Last administered on 12/21/16 11:35; Start 12/21/16 at 10:15; Stop 12/21/16 at 10:17; Status DC Scopolamine (Transderm-Scop) 1 patch Q3DAYS TD ; Start 12/24/16 at 09:00; Status UNV Atropine Sulfate 1 drop 1 drop PRN Q2HR PRN SL SECRETIONS Last administered on 12/21/16 21:57; Start 12/21/16 at 19:30; Stop 12/26/16 at 15:48; Status DC Piperacillin Sod/ Tazobactam Sod/ Sodium Chloride (Zosyn/Iv Sodium Chloride 0.9 % 100ml) 100 ml @ 200 mls/hr Q6HRS IV Last administered on 12/27/16 06:16; Start 12/22/16 at 11:00 Piperacillin Sod/ Tazobactam Sod 1 each 1 each PRN DAILY PRN MC SEE COMMENTS; Start 12/22/16 at 10:00; Stop 12/22/16 at 10:12; Status DC Potassium Chloride (KCl Premix 20meq) 50 ml @ 50 mls/hr Q1H IV Last administered on 12/22/16 17:22; Start 12/22/16 at 15:00; Stop 12/22/16 at 16:59 ; Status DC Furosemide (Lasix) 20 mg DAILY IVP Last administered on 12/27/16 08:53; Start 12/22/16 at 15:30; Stop 12/29/16 at 15:29 Vancomycin HCl 1 each 1 each PRN DAILY PRN MC SEE COMMENTS Last administered on 12/26/16 09:11; Start 12/23/16 at 08:15; Stop 12/27/16 at 07:23; Status DC Vancomycin HCl 1.75 gm/Sodium Chloride 500 ml @ 250 mls/hr 1X ONCE IV Last administered on 12/23/16 11:23; Start 12/23/16 at 08:30; Stop 12/23/16 at 10:29 ; Status DC Vancomycin HCl/ Sodium Chloride (Iv Sodium Chloride 0.9% 250ml) 250 ml @ 250 mls/hr Q8H IV Last administered on 12/24/16 00:45; Start 12/23/16 at 16:30; Stop 12/24/16 at 09:39; Status DC Vancomycin HCl 1 each 1 each 1X ONCE MC Last administered on 12/24/16 08:00; Start 12/24/16 at 08:00; Stop 12/24/16 at 08:01; Status DC Levofloxacin/ Dextrose (LEVAQUIN 500mg PREMIX) 100 ml @ 100 mls/hr Q24H IV Last administered on 12/26/16 08:11; Start 12/23/16 at 08:30; Stop 12/26/16 at 08:44; Status DC Iohexol (Omnipaque 240 Mg/ml) 30 ml 1X ONCE PO Last administered on 12/23/16 11:09; Start 12/23/16 at 09:00; Stop 12/23/16 at 09:01; Status DC Iohexol (Omnipaque 300 Mg/ml) 75 ml 1X ONCE IV Last administered on 12/23/16 11:08; Start 12/23/16 at 09:00; Stop 12/23/16 at 09:01; Status DC Pantoprazole Sodium (Protonix Vial) 40 mg DAILYAC IVP Last administered on 12/27 08:53; Start 12/23/16 at 12:00 Ondansetron HCl (Zofran) 4 mg PRN Q6HRS PRN IV Nausea; Start 12/26/16 at 07:00 ; Stop 12/27/16 at 06:59; Status DC Fentanyl Citrate (Fentanyl 2ml Vial) 25 mcg PRN Q5MIN PRN IV MILD PAIN; Start 12/26/16 at 07:00; Stop 12/27/16 at 06:59; Status DC Fentanyl Citrate (Fentanyl 2ml Vial) 50 mcg PRN Q5MIN PRN IV MODERATE PAIN; Start 12/26/16 at 07:00; Stop 12/27/16 at 06:59; Status DC Morphine Sulfate 1 mg 1 mg PRN Q10MIN PRN IV SEVERE PAIN; Start 12/26/16 at 07: 00; Stop 12/27/16 at 06:59; Status DC Lactated Ringer's (Iv Lactated Ringers) 1,000 ml @ 30 mls/hr Q24H IV ; Start at 07:00; Stop 12/26/16 at 18:59; Status DC Lidocaine HCl 2 ml 1X PRN PRN ID IV START; Start 12/26/16 at 07:00; Stop at 06:59; Status DC Hydromorphone HCl (Dilaudid) 0.5 mg PRN Q10MIN PRN IV SEVERE PAIN, Second choice; Start 12/26/16 at 07:00; Stop 12/27/16 at 06:59; Status DC Prochlorperazine Edisylate 5 mg 5 mg PACU PRN PRN IV NAUSEA; Start 12/26/16 at 07:00; Stop 12/27/16 at 06:59; Status DC Vancomycin HCl 1.25 gm/Sodium Chloride 250 ml @ 167 mls/hr Q8H IV Last administered on 12/27/16 02:04; Start 12/24/16 at 10:00; Stop 12/27/16 at 07:23 ; Status DC Potassium Chloride (KCl Premix 20meq) 50 ml @ 50 mls/hr Q1H IV Last administered on 12/24/16 15:36; Start 12/24/16 at 10:15; Stop 12/24/16 at 12:14 ; Status DC Potassium Chloride (KCl Oral Soln) 40 meq 1X ONCE GT Last administered on 12/25 11:06; Start 12/25/16 at 10:30; Stop 12/25/16 at 10:31; Status DC Potassium Chloride (KCl Oral Soln) 40 meq 1X ONCE GT ; Start 12/25/16 at 10:15 ; Stop 12/25/16 at 10:15; Status DC Ondansetron HCl (Zofran) 4 mg PRN Q6HRS PRN IV Nausea; Start 12/27/16 at 07:00 ; Stop 12/28/16 at 06:59 Fentanyl Citrate (Fentanyl 2ml Vial) 25 mcg PRN Q5MIN PRN IV MILD PAIN; Start 12/27/16 at 07:00; Stop 12/28/16 at 06:59 Fentanyl Citrate (Fentanyl 2ml Vial) 50 mcg PRN Q5MIN PRN IV MODERATE PAIN; Start 12/27/16 at 07:00; Stop 12/28/16 at 06:59 Morphine Sulfate 1 mg 1 mg PRN Q10MIN PRN IV SEVERE PAIN; Start 12/27/16 at 07: 00; Stop 12/28/16 at 06:59 Lactated Ringer's (Iv Lactated Ringers) 1,000 ml @ 30 mls/hr Q24H IV ; Start at 07:00; Stop 12/27/16 at 18:59 Lidocaine HCl 2 ml 1X PRN PRN ID IV START; Start 12/27/16 at 07:00; Stop at 06:59 Hydromorphone HCl (Dilaudid) 0.5 mg PRN Q10MIN PRN IV SEVERE PAIN, Second choice; Start 12/27/16 at 07:00; Stop 12/28/16 at 06:59 Prochlorperazine Edisylate (Compazine) 5 mg PACU PRN PRN IV NAUSEA; Start 12/27 at 07:00; Stop 12/28/16 at 06:59 Scopolamine (Transderm-Scop) 1 patch Q3DAYS TD Last administered on 12/26/16t 16:02; Start 12/26/16 at 16:00 Active Scripts Active Reported Benazepril Hcl 40 Mg Tablet 1 Tab PO DAILY Amlodipine Besylate 5 Mg Tablet 5 Mg PO DAILY Vitals/I & O Vital Sign - Last 24 Hours 12/26/16 12/26/16 12/26/16 12/26/16 10:00 10:00 11:00 11:42 Pulse 84 85 Resp 18 20 B/P 124/74 138/80 Pulse Ox 96 100 100 96 O2 Delivery Ventilator Ventilator Ventilator Ventilator 12/26/16 12/26/16 12/26/16 12/26/16 12:00 13:00 13:15 13:15 Temp 98.6 98.6 Pulse 85 84 Resp 22 21 B/P 159/89 125/105 Pulse Ox 100 100 O2 Delivery Mechanical Ventilator Ventilator Ventilator Ventilator 12/26/16 12/26/16 12/26/16 12/26/16 13:30 13:45 13:45 14:00 Pulse 74 78 71 Resp 18 18 17 B/P 128/75 133/69 125/77 Pulse Ox 100 100 100 100 O2 Delivery Ventilator Ventilator Ventilator Ventilator 12/26/16 12/26/16 12/26/16 12/26/16 14:30 15:00 15:19 15:20 Pulse 78 82 Resp 22 20 B/P 136/71 134/78 Pulse Ox 100 100 96 O2 Delivery Ventilator Ventilator Ventilator Ventilator 12/26/16 12/26/16 12/26/16 12/26/16 15:30 16:00 16:00 16:02 Temp 97.6 97.6 Pulse 70 70 Resp 18 17 B/P 126/61 110/55 Pulse Ox 100 100 O2 Delivery Ventilator Ventilator Mechanical Ventilator Ventilator 12/26/16 12/26/16 12/26/16 12/26/16 16:30 17:00 17:30 18:00 Pulse 70 74 85 82 Resp 18 18 19 22 B/P 129/72 128/72 136/76 137/71 Pulse Ox 100 100 100 100 O2 Delivery Ventilator Ventilator Ventilator Ventilator 12/26/16 12/26/16 12/26/16 12/26/16 19:00 19:55 20:00 20:00 Temp 98.9 98.9 Pulse 74 86 Resp 18 19 B/P 143/73 155/85 Pulse Ox 100 96 100 O2 Delivery Ventilator Ventilator Ventilator Mechanical Ventilator 12/26/16 12/26/16 12/26/16 12/26/16 21:00 21:35 22:00 23:00 Pulse 74 90 74 Resp 18 19 18 B/P 147/83 135/83 153/83 Pulse Ox 100 100 100 100 O2 Delivery Ventilator Ventilator Ventilator Ventilator 12/26/16 12/27/16 12/27/16 12/27/16 23:20 00:00 00:04 01:00 Temp 98.2 98.2 Pulse 72 86 Resp 20 19 B/P 143/78 152/95 Pulse Ox 100 100 100 O2 Delivery Ventilator Ventilator Mechanical Ventilator Ventilator 12/27/16 12/27/16 12/27/16 12/27/16 01:15 02:00 03:00 03:25 Pulse 87 79 Resp 19 18 B/P 145/90 142/71 Pulse Ox 100 100 100 100 O2 Delivery Ventilator Ventilator Ventilator Ventilator 12/27/16 12/27/16 12/27/16 12/27/16 04:00 04:00 05:00 05:21 Temp 98.2 98.2 Pulse 72 79 Resp 18 19 B/P 145/91 109/60 Pulse Ox 100 100 100 O2 Delivery Ventilator Mechanical Ventilator Ventilator Ventilator 12/27/16 12/27/16 06:00 07:12 Pulse 86 Resp 20 B/P 154/79 Pulse Ox 100 100 O2 Delivery Ventilator Ventilator Intake and Output 12/26/16 12/26/16 12/27/16 15:00 23:00 07:00 Intake Total 0 ml 0 ml 805 ml Output Total 2550 ml 372 ml 290 ml Balance -2550 ml -372 ml 515 ml ELA DUARTE APRN Dec 27, 2016 09:23
--- NOTE | 2016-12-27 11:04 | PDOC ---
PULMONARY PROGRESS NOTES Subjective S/P TRACH Vitals Vital Signs Date Time Temp Pulse Resp B/P Pulse Ox O2 Delivery O2 Flow Rate FiO2 12/27/16 07:12 100 Ventilator 12/27/16 06:00 86 20 154/79 12/27/16 04:00 98.2 98.2 General: Alert, No acute distress HEENT: Other (s/p crani, perrl, orally intubated, nose clear. ) Lungs: Clear Cardiovascular: S1, S2 Abdomen: Soft, Non-tender, Other (no mass) Extremities: No Edema Skin: Warm Labs Laboratory Tests Test 12/26/16 08:05 12/26/16 08:15 12/27/16 04:45 12/27/16 07:10 White Blood Count 11.7x10^3/uL (4.0-11.0) 12.3x10^3/uL (4.0-11.0) Red Blood Count 2.97x10^6/uL (4.30-5.70) 3.06x10^6/uL (4.30-5.70) Hemoglobin 9.6g/dL (13.0-17.5) 9.9g/dL (13.0-17.5) Hematocrit 27.8% (39.0-53.0) 28.4% (39.0-53.0) Mean Corpuscular Volume 94fL (79-100) 93fL (79-100) Mean Corpuscular Hemoglobin 32pg (25-35) 32pg (25-35) Mean Corpuscular Hemoglobin Concent 35g/dL (31-37) 35g/dL (31-37) Red Cell Distribution Width 13.2% (11.5-14.5) 12.7% (11.5-14.5) Platelet Count 381x10^3/uL (140-400) 393x10^3/uL (140-400) Neutrophils (%) (Auto) 81% (31-73) 79% (31-73) Lymphocytes (%) (Auto) 7% (24-48) 8% (24-48) Monocytes (%) (Auto) 10% (0-9) 11% (0-9) Eosinophils (%) (Auto) 1% (0-3) 1% (0-3) Basophils (%) (Auto) 1% (0-3) 1% (0-3) Neutrophils # (Auto) 9.5x10^3uL (1.8-7.7) 9.7x10^3uL (1.8-7.7) Lymphocytes # (Auto) 0.9x10^3/uL (1.0-4.8) 1.0x10^3/uL (1.0-4.8) Monocytes # (Auto) 1.2x10^3/uL (0.0-1.1) 1.3x10^3/uL (0.0-1.1) Eosinophils # (Auto) 0.1x10^3/uL (0.0-0.7) 0.1x10^3/uL (0.0-0.7) Basophils # (Auto) 0.1x10^3/uL (0.0-0.2) 0.1x10^3/uL (0.0-0.2) Sodium Level 130mmol/L (136-145) 131mmol/L (136-145) Potassium Level 3.9mmol/L (3.5-5.1) 3.8mmol/L (3.5-5.1) Chloride Level 96mmol/L (98-107) 96mmol/L (98-107) Carbon Dioxide Level 26mmol/L (21-32) 23mmol/L (21-32) Anion Gap 8 (6-14) 12 (6-14) Blood Urea Nitrogen 16mg/dL (8-26) 14mg/dL (8-26) Creatinine 0.6mg/dL (0.7-1.3) 0.7mg/dL (0.7-1.3) Estimated GFR (Cockcroft-Gault) 136.5 114.3 Glucose Level 102mg/dL (70-99) 80mg/dL (70-99) Calcium Level 8.5mg/dL (8.5-10.1) 8.2mg/dL (8.5-10.1) O2 Saturation 94% (92-99) 95% (92-99) Arterial Blood pH 7.52 (7.35-7.45) 7.51 (7.35-7.45) Arterial Blood pCO2 at Patient Temp 27mmHg (35-46) 29mmHg (35-46) Arterial Blood pO2 at Patient Temp 68mmHg (65-108) 76mmHg (65-108) Arterial Blood HCO3 22mmol/L (21-28) 22mmol/L (21-28) Arterial Blood Base Excess 0mmol/L (-3-3) 0mmol/L (-3-3) FiO2 30 30 Laboratory Tests Test 12/27/16 04:45 12/27/16 07:10 White Blood Count 12.3x10^3/uL (4.0-11.0) Red Blood Count 3.06x10^6/uL (4.30-5.70) Hemoglobin 9.9g/dL (13.0-17.5) Hematocrit 28.4% (39.0-53.0) Mean Corpuscular Volume 93fL (79-100) Mean Corpuscular Hemoglobin 32pg (25-35) Mean Corpuscular Hemoglobin Concent 35g/dL (31-37) Red Cell Distribution Width 12.7% (11.5-14.5) Platelet Count 393x10^3/uL (140-400) Neutrophils (%) (Auto) 79% (31-73) Lymphocytes (%) (Auto) 8% (24-48) Monocytes (%) (Auto) 11% (0-9) Eosinophils (%) (Auto) 1% (0-3) Basophils (%) (Auto) 1% (0-3) Neutrophils # (Auto) 9.7x10^3uL (1.8-7.7) Lymphocytes # (Auto) 1.0x10^3/uL (1.0-4.8) Monocytes # (Auto) 1.3x10^3/uL (0.0-1.1) Eosinophils # (Auto) 0.1x10^3/uL (0.0-0.7) Basophils # (Auto) 0.1x10^3/uL (0.0-0.2) Sodium Level 131mmol/L (136-145) Potassium Level 3.8mmol/L (3.5-5.1) Chloride Level 96mmol/L (98-107) Carbon Dioxide Level 23mmol/L (21-32) Anion Gap 12 (6-14) Blood Urea Nitrogen 14mg/dL (8-26) Creatinine 0.7mg/dL (0.7-1.3) Estimated GFR (Cockcroft-Gault) 114.3 Glucose Level 80mg/dL (70-99) Calcium Level 8.2mg/dL (8.5-10.1) O2 Saturation 95% (92-99) Arterial Blood pH 7.51 (7.35-7.45) Arterial Blood pCO2 at Patient Temp 29mmHg (35-46) Arterial Blood pO2 at Patient Temp 76mmHg (65-108) Arterial Blood HCO3 22mmol/L (21-28) Arterial Blood Base Excess 0mmol/L (-3-3) FiO2 30 Medications Active Scripts Medications Dose Route/Sig Days Date Category Benazepril Hcl 40 Mg Tablet 1 Tab PO DAILY 12/16/16 Reported Amlodipine Besylate 5 Mg Tablet 5 Mg PO DAILY 12/16/16 Reported Comments LLL INFILTRATE EFFUSION BETTER Impression . 1. Acute respiratory failure secondary ICH 2. 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 3. Underlying chronic obstructive pulmonary disease, unknown FEV1, smoked for 40 years. 4. Underlying alcoholism. 5. Nutrition will need a PEG 6. Fever per ID 7. Nutrition per tube feeding 8. S/P ICV filter 9. ABNORMAL CXR COMPATIBLE WITH FLUID OVERLOAD 10. S/P TRACH 12/26 Plan . REDUCE TV/RATE S/P TRACH PEG TODAY CPAP TRIAL POST PEG CXR IS BETTER WITH LASIX PRN VERSED, FENTANYL TUBE FEEDING FOR NOW S/P IVC SCOPOLAMINE PATCH MICHAEL RAYA MD Dec 27, 2016 11:04
--- NOTE | 2016-12-27 14:14 | PDOC ---
PROGRESS NOTES Chief Complaint Chief Complaint cc: ams A/P Right frontal craniotomy with evacuation of intracerebral hematoma and placement of external ventricular drain in the right lateral ventricle Alcohol abuse Ventilatory dependent respiratory failure, s/p tracheostomy on 12/26/16 Hyponatremia Fever 2/2 intracranial hemorrhage vs. asp PNA IVC filter Plan s/p tracheostomy CIWA protocol for alcohol withdrawal precaution Keppra for seizure precautions BP goal < SBP 130 GI prophylaxis NO dvt prophylaxis Tube feeds, PEG today at bedside IVC filter for PE prevention as per [facility] on 12/[address] repeat 12/22/16 better Zosyn Follow ID and NS recommendations. History of Present Illness History of Present Illness extubated on Trach mechanical ventilation support Vitals Vitals Vital Signs Date Time Temp Pulse Resp B/P Pulse Ox O2 Delivery O2 Flow Rate FiO2 12/27/16 11:09 100 Ventilator 12/27/16 11:00 82 20 123/69 12/27/16 08:00 98.1 98.1 Physical Exam General: Alert, No acute distress Heart: Regular rate, Normal S1, Normal S2 Lungs: Clear Abdomen: Normal bowel sounds, Soft, No tenderness Extremities: No edema Skin: Other (incision healing well, slava intact, dry) Labs LABS Laboratory Tests Test 12/27/16 04:45 12/27/16 07:10 White Blood Count 12.3x10^3/uL (4.0-11.0) Red Blood Count 3.06x10^6/uL (4.30-5.70) Hemoglobin 9.9g/dL (13.0-17.5) Hematocrit 28.4% (39.0-53.0) Mean Corpuscular Volume 93fL (79-100) Mean Corpuscular Hemoglobin 32pg (25-35) Mean Corpuscular Hemoglobin Concent 35g/dL (31-37) Red Cell Distribution Width 12.7% (11.5-14.5) Platelet Count 393x10^3/uL (140-400) Neutrophils (%) (Auto) 79% (31-73) Lymphocytes (%) (Auto) 8% (24-48) Monocytes (%) (Auto) 11% (0-9) Eosinophils (%) (Auto) 1% (0-3) Basophils (%) (Auto) 1% (0-3) Neutrophils # (Auto) 9.7x10^3uL (1.8-7.7) Lymphocytes # (Auto) 1.0x10^3/uL (1.0-4.8) Monocytes # (Auto) 1.3x10^3/uL (0.0-1.1) Eosinophils # (Auto) 0.1x10^3/uL (0.0-0.7) Basophils # (Auto) 0.1x10^3/uL (0.0-0.2) Sodium Level 131mmol/L (136-145) Potassium Level 3.8mmol/L (3.5-5.1) Chloride Level 96mmol/L (98-107) Carbon Dioxide Level 23mmol/L (21-32) Anion Gap 12 (6-14) Blood Urea Nitrogen 14mg/dL (8-26) Creatinine 0.7mg/dL (0.7-1.3) Estimated GFR (Cockcroft-Gault) 114.3 Glucose Level 80mg/dL (70-99) Calcium Level 8.2mg/dL (8.5-10.1) O2 Saturation 95% (92-99) Arterial Blood pH 7.51 (7.35-7.45) Arterial Blood pCO2 at Patient Temp 29mmHg (35-46) Arterial Blood pO2 at Patient Temp 76mmHg (65-108) Arterial Blood HCO3 22mmol/L (21-28) Arterial Blood Base Excess 0mmol/L (-3-3) FiO2 30 Assessment and Plan Assessmemt and Plan Problems Medical Problems: (1) Intraparenchymal hematoma of brain Status: Acute Problems: Comment Review of Relevant I have reviewed the following items jose alfredo (where applicable) has been applied. Labs Laboratory Tests Test 12/26/16 08:05 12/26/16 08:15 12/27/16 04:45 12/27/16 07:10 White Blood Count 11.7x10^3/uL (4.0-11.0) 12.3x10^3/uL (4.0-11.0) Red Blood Count 2.97x10^6/uL (4.30-5.70) 3.06x10^6/uL (4.30-5.70) Hemoglobin 9.6g/dL (13.0-17.5) 9.9g/dL (13.0-17.5) Hematocrit 27.8% (39.0-53.0) 28.4% (39.0-53.0) Mean Corpuscular Volume 94fL (79-100) 93fL (79-100) Mean Corpuscular Hemoglobin 32pg (25-35) 32pg (25-35) Mean Corpuscular Hemoglobin Concent 35g/dL (31-37) 35g/dL (31-37) Red Cell Distribution Width 13.2% (11.5-14.5) 12.7% (11.5-14.5) Platelet Count 381x10^3/uL (140-400) 393x10^3/uL (140-400) Neutrophils (%) (Auto) 81% (31-73) 79% (31-73) Lymphocytes (%) (Auto) 7% (24-48) 8% (24-48) Monocytes (%) (Auto) 10% (0-9) 11% (0-9) Eosinophils (%) (Auto) 1% (0-3) 1% (0-3) Basophils (%) (Auto) 1% (0-3) 1% (0-3) Neutrophils # (Auto) 9.5x10^3uL (1.8-7.7) 9.7x10^3uL (1.8-7.7) Lymphocytes # (Auto) 0.9x10^3/uL (1.0-4.8) 1.0x10^3/uL (1.0-4.8) Monocytes # (Auto) 1.2x10^3/uL (0.0-1.1) 1.3x10^3/uL (0.0-1.1) Eosinophils # (Auto) 0.1x10^3/uL (0.0-0.7) 0.1x10^3/uL (0.0-0.7) Basophils # (Auto) 0.1x10^3/uL (0.0-0.2) 0.1x10^3/uL (0.0-0.2) Sodium Level 130mmol/L (136-145) 131mmol/L (136-145) Potassium Level 3.9mmol/L (3.5-5.1) 3.8mmol/L (3.5-5.1) Chloride Level 96mmol/L (98-107) 96mmol/L (98-107) Carbon Dioxide Level 26mmol/L (21-32) 23mmol/L (21-32) Anion Gap 8 (6-14) 12 (6-14) Blood Urea Nitrogen 16mg/dL (8-26) 14mg/dL (8-26) Creatinine 0.6mg/dL (0.7-1.3) 0.7mg/dL (0.7-1.3) Estimated GFR (Cockcroft-Gault) 136.5 114.3 Glucose Level 102mg/dL (70-99) 80mg/dL (70-99) Calcium Level 8.5mg/dL (8.5-10.1) 8.2mg/dL (8.5-10.1) O2 Saturation 94% (92-99) 95% (92-99) Arterial Blood pH 7.52 (7.35-7.45) 7.51 (7.35-7.45) Arterial Blood pCO2 at Patient Temp 27mmHg (35-46) 29mmHg (35-46) Arterial Blood pO2 at Patient Temp 68mmHg (65-108) 76mmHg (65-108) Arterial Blood HCO3 22mmol/L (21-28) 22mmol/L (21-28) Arterial Blood Base Excess 0mmol/L (-3-3) 0mmol/L (-3-3) FiO2 30 30 Laboratory Tests Test 12/27/16 04:45 12/27/16 07:10 White Blood Count 12.3x10^3/uL (4.0-11.0) Red Blood Count 3.06x10^6/uL (4.30-5.70) Hemoglobin 9.9g/dL (13.0-17.5) Hematocrit 28.4% (39.0-53.0) Mean Corpuscular Volume 93fL (79-100) Mean Corpuscular Hemoglobin 32pg (25-35) Mean Corpuscular Hemoglobin Concent 35g/dL (31-37) Red Cell Distribution Width 12.7% (11.5-14.5) Platelet Count 393x10^3/uL (140-400) Neutrophils (%) (Auto) 79% (31-73) Lymphocytes (%) (Auto) 8% (24-48) Monocytes (%) (Auto) 11% (0-9) Eosinophils (%) (Auto) 1% (0-3) Basophils (%) (Auto) 1% (0-3) Neutrophils # (Auto) 9.7x10^3uL (1.8-7.7) Lymphocytes # (Auto) 1.0x10^3/uL (1.0-4.8) Monocytes # (Auto) 1.3x10^3/uL (0.0-1.1) Eosinophils # (Auto) 0.1x10^3/uL (0.0-0.7) Basophils # (Auto) 0.1x10^3/uL (0.0-0.2) Sodium Level 131mmol/L (136-145) Potassium Level 3.8mmol/L (3.5-5.1) Chloride Level 96mmol/L (98-107) Carbon Dioxide Level 23mmol/L (21-32) Anion Gap 12 (6-14) Blood Urea Nitrogen 14mg/dL (8-26) Creatinine 0.7mg/dL (0.7-1.3) Estimated GFR (Cockcroft-Gault) 114.3 Glucose Level 80mg/dL (70-99) Calcium Level 8.2mg/dL (8.5-10.1) O2 Saturation 95% (92-99) Arterial Blood pH 7.51 (7.35-7.45) Arterial Blood pCO2 at Patient Temp 29mmHg (35-46) Arterial Blood pO2 at Patient Temp 76mmHg (65-108) Arterial Blood HCO3 22mmol/L (21-28) Arterial Blood Base Excess 0mmol/L (-3-3) FiO2 30 Microbiology 12/23/16 Blood Culture - Preliminary, Resulted NO GROWTH AFTER 4 DAYS Medications Current Medications Multivitamins/ Minerals/Folic Acid/Thiamine HCl/ Sodium Chloride (Infuvite Adult / Iv Sodium Chloride 0.9% 1000ml Bag) 1,011.2 ml @ 1,000 mls/ hr 1X ONCE IV Last administered on 12/15/16t 18:53; Start 12/15/16 at 18:45; Stop 12/15/16 at 19: 45; Status DC Ondansetron HCl 4 mg 4 mg 1X ONCE IV ; Start 12/15/16 at 18:45; Stop 12/15/16 at 18:46; Status DC Propofol 0 ml @ As Directed STK-MED ONCE IV ; Start 12/15/16 at 19:57; Stop at 19:58; Status DC Propofol (Diprivan) 50 ml @ As Directed STK-MED ONCE IV ; Start 12/15/16 at 19:57 ; Stop 12/15/16 at 19:58; Status DC Lidocaine HCl 100 mg STK-MED ONCE .ROUTE ; Start 12/15/16 at 20:45; Stop 12/15/16 at 20:46; Status DC Fentanyl Citrate (Fentanyl 2ml Vial) 100 mcg STK-MED ONCE .ROUTE ; Start at 20:46; Stop 12/15/16 at 20:47; Status DC Rocuronium [place] (Zemuron) 50 mg STK-MED ONCE .ROUTE ; Start 12/15/16 at 20:46 ; Stop 12/15/16 at 20:47; Status DC Ondansetron HCl 4 mg 4 mg PRN Q8HRS PRN IV NAUSEA/VOMITING; Start 12/15/16 at 20 :45; Stop 12/15/16 at 23:44; Status DC Sodium Chloride (Iv Sodium Chloride 0.9% 1000ml Bag) 1,000 ml @ 100 mls/hr Q10H IV Last administered on 12/16/16 06:45; Start 12/15/16 at 20:45; Stop 08/22 at 07:25; Status DC Acetaminophen (Tylenol) 650 mg PRN Q4HRS PRN PO FEVER Last administered on 12/16 16:43; Start 12/15/16 at 20:45; Stop 12/16/16 at 20:44; Status DC Etomidate (Amidate) 20 mg 1X ONCE IV Last administered on 12/15/16 19:51; Start 12/15/16 at 20:45; Stop 12/15/16 at 20:53; Status DC Succinylcholine Chloride 100 mg 100 mg 1X ONCE IV Last administered on 19:52; Start 12/15/16 at 20:45; Stop 12/15/16 at 20:53; Status DC Bacitracin/Sodium Chloride (Iv Sodium Chloride 0.9% 1000ml Bag) 1,000 ml @ 1, 000 mls/hr 1X PERIOP ONCE IRR Last administered on 12/15/16 22:05; Start at 21:00; Stop 12/15/16 at 21:59; Status DC Cellulose 1 each STK-MED ONCE .ROUTE Last administered on 12/15/16 22:05; Start 12/15/16 at 20:58; Stop 12/15/16 at 20:59; Status DC Bupivacaine HCl/ Epinephrine Bitart (Sensorcain-Mpf Epi 0.5%-[id number]) 30 ml STK -MED ONCE .ROUTE Last administered on 12/15/16 22:05; Start 12/15/16 at 20:58; Stop 12/15/16 at 20:59; Status DC Gelatin (Gelfoam Size 100) 1 each STK-MED ONCE .ROUTE Last administered on 12/15 22:05; Start 12/15/16 at 20:58; Stop 12/15/16 at 20:59; Status DC Thrombin 10600 unit 20,000 unit STK-MED ONCE TP Last administered on 12/15/16 22:05; Start 12/15/16 at 20:58; Stop 12/15/16 at 20:59; Status DC Propofol (Diprivan) 20 ml @ As Directed STK-MED ONCE IV ; Start 12/15/16 at 21:06 ; Stop 12/15/16 at 21:07; Status DC Desflurane 60 ml 60 ml STK-MED ONCE IH ; Start 12/15/16 at 21:49; Stop 12/15/16 at 21:50; Status DC Cefazolin Sodium/ Dextrose 50 ml @ As Directed STK-MED ONCE IV ; Start 12/15/16 at 21:52; Stop 12/15/16 at 21:53; Status DC Mannitol (Mannitol Iv Soln) 500 ml @ As Directed STK-MED ONCE IV ; Start at 21:53; Stop 12/15/16 at 21:54; Status DC Phenylephrine HCl 1 mg 1 mg STK-MED ONCE IV ; Start 12/15/16 at 21:55; Stop at 21:56; Status DC Levetiracetam/ Sodium Chloride (Keppra/Iv Sodium Chloride 0.9% 100ml) 100 ml @ 400 mls/hr 1X ONCE IV Last administered on 12/15/16t 22:30; Start 12/15/16 at 22 :15; Stop 12/15/16 at 22:29; Status DC Ondansetron HCl (Zofran) 4 mg PRN Q6HRS PRN IV Nausea; Start 12/15/16 at 22:30; Stop 12/16/16 at 14:48; Status DC Fentanyl Citrate (Fentanyl 2ml Vial) 25 mcg PRN Q5MIN PRN IV MILD PAIN; Start 12/15/16 at 22:30; Stop 12/16/16 at 13:00; Status DC Fentanyl Citrate (Fentanyl 2ml Vial) 50 mcg PRN Q5MIN PRN IV MODERATE PAIN; Start 12/15/16 at 22:30; Stop 12/16/16 at 13:00; Status DC Morphine Sulfate 1 mg 1 mg PRN Q10MIN PRN IV SEVERE PAIN; Start 12/15/16 at 22: 30; Stop 12/16/16 at 13:08; Status DC Lactated Ringer's (Iv Lactated Ringers) 1,000 ml @ 0 mls/hr Q0M IV ; Start 12/15 at 22:30; Stop 12/16/16 at 13:08; Status DC Lidocaine HCl 2 ml 1X PRN PRN ID IV START; Start 12/15/16 at 22:30; Stop at 13:08; Status DC Hydromorphone HCl (Dilaudid) 0.5 mg PRN Q10MIN PRN IV SEV PAIN,Second choice; Start 12/15/16 at 22:30; Stop 12/16/16 at 13:01; Status DC Prochlorperazine Edisylate 5 mg 5 mg PACU PRN PRN IV NAUSEA; Start 12/15/16 at 22:30; Stop 12/16/16 at 13:08; Status DC Propofol 100 ml @ As Directed STK-MED ONCE IV ; Start 12/15/16 at 23:13; Stop at 23:14; Status DC Nicardipine HCl/ Sodium Chloride (Cardene/Iv Sodium Chloride 0.9% 250ml) 270 ml @ 27 mls/hr TITRATE PRN IV PER PROTOCOL; Start 12/15/16 at 23:30 Diphenhydramine HCl (Benadryl) 25 mg PRN Q6HRS PRN PO ITCHING; Start 12/15/16 at 23:30; Stop 12/19/16 at 12:54; Status DC Diphenhydramine HCl 25 mg 25 mg PRN Q6HRS PRN IV ITCHING; Start 12/15/16 at 23: 30 Levetiracetam/ Sodium Chloride (Keppra/Iv Sodium Chloride 0.9% 100ml) 105 ml @ 400 mls/hr Q12HR IV Last administered on 12/27/16 09:04; Start 12/16/16 at 09: 00 Sodium Chloride (Normal Saline Flush) 3 ml QSHIFT PRN IV AFTER MEDS AND BLOOD DRAWS; Start 12/15/16 at 23:30 Dextrose 12.5 gm PRN Q15MIN PRN IV SEE COMMENTS; Start 12/15/16 at 23:30 Magnesium Hydroxide (Milk Of Magnesia) 2,400 mg PRN Q12HR PRN PO CONSTIPATION; Start 12/15/16 at 23:30 Ondansetron HCl 4 mg 4 mg PRN Q6HRS PRN IV NAUESA, 1ST CHOICE; Start 12/15/16 at 23:30 Cefazolin Sodium 1 gm/Sodium Chloride 50 ml @ 100 mls/hr Q8HRS IV Last administered on 12/16/16 21:05; Start 12/16/16 at 06:00; Stop 12/16/16 at 22:29 ; Status DC Potassium Chloride/Dextrose/ Sod Cl (KCl 20 Meq In D5W-1/2 NS) 1,000 ml @ 75 mls/hr [id number] IV Last administered on 12/18/16 18:18; Start 12/15/16 at 23:30 ; Stop 12/19/16 at 09:48; Status DC Fentanyl Citrate (Fentanyl 2ml Vial) 25 mcg PRN Q1HR PRN IV PAIN Last administered on 12/24/16 14:15; Start 12/15/16 at 23:30 Fentanyl Citrate (Fentanyl 2ml Vial) 50 mcg PRN Q1HR PRN IV PAIN Last administered on 12/26/16 15:20; Start 12/15/16 at 23:30 Info (Do NOT chart on this placeholder) 1 each 1X ONCE MC ; Start 12/16/16 at 04:00; Stop 12/16/16 at 04:01; Status UNV Pneumococcal Polyvalent Vaccine (Do NOT chart on this placeholder) 1 each 1X ONCE MC ; Start 12/16/16 at 04:00; Stop 12/16/16 at 04:01; Status UNV Influenza Virus Vaccine Quadrival (Fluarix Quad [id number] Syringe) 0.5 ml ONCE ONCE VAX IM Last administered on 12/17/16 08:49; Start 12/16/16 at 09:00; Stop 12/16/16 at 09:01; Status DC Pneumococcal Polyvalent Vaccine 0.5 ml 0.5 ml ONCE ONCE VAX IM Last administered on 12/17/16 08:47; Start 12/16/16 at 09:00; Stop 12/16/16 at 09:01 ; Status DC Propofol 100 ml @ 0 mls/hr CONT PRN IV SEE I/O RECORD Last administered on 12/21 02:53; Start 12/16/16 at 04:30 Propofol 100 ml @ 0 mls/hr CONT PRN IV SEE I/O RECORD; Start 12/16/16 at 00:00 ; Stop 12/16/16 at 03:00; Status Cancel Propofol 100 ml @ 0 mls/hr CONT PRN IV SEE I/O RECORD Last administered on 20:00; Start 12/16/16 at 00:00; Stop 12/16/16 at 09:04; Status DC Multivitamins/ Minerals/Thiamine HCl/Folic Acid/ Sodium Chloride (Infuvite Adult / Iv Sodium Chloride 0.9% 1000ml Bag) 1,011.2 ml @ 100 mls/ hr DAILY IV Last administered on 12/22/16 08:31; Start 12/16/16 at 10:00; Stop 12/22/16 at 09:59 ; Status DC Lorazepam (Ativan) 2 mg PRN Q1HR PRN IV For CIWA 8-14 Last administered on 12/21 21:57; Start 12/16/16 at 10:00; Stop 12/23/16 at 19:01; Status DC Lorazepam (Ativan) 4 mg PRN Q1HR PRN IV For CIWA 15 or greater Last administered on 12/22/16 01:36; Start 12/16/16 at 10:00; Stop 12/23/16 at 19:01 ; Status DC Piperacillin Sod/ Tazobactam Sod (Zosyn Per Pharmacy) 1 each PRN DAILY PRN MC SEE COMMENTS; Start 12/16/16 at 10:30; Stop 12/18/16 at 11:54; Status DC Vancomycin HCl 1 each 1 each PRN DAILY PRN MC SEE COMMENTS Last administered on 12/18/16 04:00; Start 12/16/16 at 10:30; Stop 12/18/16 at 11:54; Status DC Vancomycin HCl 1.5 gm/Sodium Chloride 500 ml @ 250 mls/hr 1X ONCE IV Last administered on 12/16/16 14:08; Start 12/16/16 at 11:00; Stop 12/16/16 at 12:59 ; Status DC Piperacillin Sod/ Tazobactam Sod/ Sodium Chloride (Zosyn/Iv Sodium Chloride 0.9 % 100ml) 100 ml @ 200 mls/hr Q6HRS IV Last administered on 12/18/16 05:11; Start 12/16/16 at 12:00; Stop 12/18/16 at 11:54; Status DC Propofol 1000 mg 1,000 mg STK-MED ONCE IV ; Start 12/15/16 at 23:00; Stop at 13:28; Status DC Vancomycin HCl/ Sodium Chloride (Iv Sodium Chloride 0.9% 250ml) 250 ml @ 250 mls/hr Q12H IV Last administered on 12/18/16 02:00; Start 12/17/16 at 02:00; Stop 12/18/16 at 03:45; Status DC Vancomycin HCl 1 each 1X ONCE MC Last administered on 12/18/16 01:30; Start 12/18/16 at 01:30; Stop 12/18/16 at 11:54; Status DC Hydralazine HCl (Apresoline) 10 mg PRN Q4HRS PRN IVP ELEVATED BP, SEE COMMENTS Last administered on 12/25/16 22:01; Start 12/17/16 at 12:15 Potassium Chloride 40 meq 40 meq 1X ONCE PO ; Start 12/17/16 at 18:15; Stop 09/22 at 18:16; Status Cancel Potassium Chloride 50 ml @ 50 mls/hr Q1H IV Last administered on 12/18/16 00: 55; Start 12/17/16 at 19:00; Stop 12/17/16 at 20:59; Status DC Vancomycin HCl/ Sodium Chloride (Iv Sodium Chloride 0.9% 250ml) 250 ml @ 250 mls/hr Q8H IV Last administered on 12/18/16 03:54; Start 12/18/16 at 04:00; Stop 12/18/16 at 11:54; Status DC Vancomycin HCl 1 each 1X ONCE MC ; Start 12/19/16 at 03:30; Stop 12/19/16 at 03 :30; Status DC Budesonide (Pulmicort) 0.5 mg RTBID NEB Last administered on 12/27/16 07:12; Start 12/18/16 at 08:00 Vecuronium [place] 6 mg 6 mg 1X ONCE IV Last administered on 12/18/16 13:09; Start 12/18/16 at 13:00; Stop 12/18/16 at 13:01; Status DC Magnesium Sulfate/ Dextrose 50 ml @ 25 mls/hr 1X ONCE IV Last administered on 12/18/16 15:34; Start 12/18/16 at 15:00; Stop 12/18/16 at 16:59; Status DC Potassium Chloride 100 ml @ 100 mls/hr Q1H IV Last administered on 12/18/16 18:17; Start 12/18/16 at 15:00; Stop 12/18/16 at 18:59; Status DC Cefazolin Sodium 1 gm/Sodium Chloride 50 ml @ 100 mls/hr Q8HRS IV Last administered on 12/22/16 05:34; Start 12/19/16 at 10:00; Stop 12/22/16 at 10:01 ; Status DC Magnesium Sulfate/ Dextrose 50 ml @ 25 mls/hr 1X ONCE IV Last administered on 12/19/16 10:42; Start 12/19/16 at 10:30; Stop 12/19/16 at 12:29; Status DC Sodium Chloride/ Potassium Chloride/ Potassium Phosphate/ Magnesium Sulfate/ Calcium Gluconate/ Multivitamins/ Minerals/Chromium/ Copper/Manganese/ Seleni/Zn /Total Parenteral Nutrition/Amino Acids/Dextrose/ Fat Emulsion Intravenous ( Sodium Chloride/ Potassium Phospha... 87.0013 ml @ 3.625 mls/hr TPN CONT IV ; Start 12/19/16 at 22:00; Stop 12/19/16 at 22:00; Status Cancel Info 1 each 1 each PRN DAILY PRN MC SEE COMMENTS; Start 12/19/16 at 10:00; Stop 12/19/16 at 10:00; Status DC Potassium Chloride (KCl Premix 10meq) 100 ml @ 100 mls/hr Q1H IV Last administered on 12/19/16 20:52; Start 12/19/16 at 11:00; Stop 12/19/16 at 14:59 ; Status DC Acetaminophen (Tylenol) 650 mg PRN Q6HRS PRN PO MILD PAIN / TEMP; Start at 13:45; Status Cancel Acetaminophen 650 mg 650 mg PRN Q6HRS PRN PEG MILD PAIN / TEMP Last administered on 12/25/16 21:04; Start 12/19/16 at 14:00 Potassium Chloride/Sodium Chloride (Iv Sodium Chloride 0.45%) 1,015 ml @ 75 mls /hr [id number] IV Last administered on 12/19/16 21:24; Start 12/19/16 at 21:30; Stop 12/20/16 at 08:48; Status DC Furosemide (Lasix) 20 mg 1X ONCE IVP Last administered on 12/20/16 09:09; Start 12/20/16 at 09:30; Stop 12/20/16 at 09:31; Status DC Iohexol (Omnipaque 300 Mg/ml) 100 ml STK-MED ONCE .ROUTE ; Start 12/20/16 at 16: 17; Stop 12/20/16 at 16:18; Status DC Lidocaine HCl 20 ml 20 ml STK-MED ONCE .ROUTE ; Start 12/20/16 at 16:17; Stop at 16:18; Status DC Heparin Sodium/ Sodium Chloride 500 ml @ As Directed STK-MED ONCE .ROUTE ; Start 12/20/16 at 16:17; Stop 12/20/16 at 16:18; Status DC Heparin Sodium/ Sodium Chloride 1,000 unit 1X ONCE IART Last administered on 16:45; Start 12/20/16 at 16:45; Stop 12/20/16 at 16:46; Status DC Iohexol (Omnipaque 300 Mg/ml) 100 ml 1X ONCE IART Last administered on 16:45; Start 12/20/16 at 16:45; Stop 12/20/16 at 16:46; Status DC Lidocaine HCl 20 ml 1X ONCE IJ Last administered on 12/20/16 16:45; Start at 16:45; Stop 12/20/16 at 16:46; Status DC Furosemide (Lasix) 40 mg 1X ONCE IVP Last administered on 12/21/16 11:35; Start 12/21/16 at 10:15; Stop 12/21/16 at 10:17; Status DC Scopolamine (Transderm-Scop) 1 patch Q3DAYS TD ; Start 12/24/16 at 09:00; Status UNV Atropine Sulfate 1 drop 1 drop PRN Q2HR PRN SL SECRETIONS Last administered on 12/21/16 21:57; Start 12/21/16 at 19:30; Stop 12/26/16 at 15:48; Status DC Piperacillin Sod/ Tazobactam Sod/ Sodium Chloride (Zosyn/Iv Sodium Chloride 0.9 % 100ml) 100 ml @ 200 mls/hr Q6HRS IV Last administered on 12/27/16 13:28; Start 12/22/16 at 11:00 Piperacillin Sod/ Tazobactam Sod 1 each 1 each PRN DAILY PRN MC SEE COMMENTS; Start 12/22/16 at 10:00; Stop 12/22/16 at 10:12; Status DC Potassium Chloride (KCl Premix 20meq) 50 ml @ 50 mls/hr Q1H IV Last administered on 12/22/16 17:22; Start 12/22/16 at 15:00; Stop 12/22/16 at 16:59 ; Status DC Furosemide (Lasix) 20 mg DAILY IVP Last administered on 12/27/16 08:53; Start 12/22/16 at 15:30; Stop 12/29/16 at 15:29 Vancomycin HCl 1 each 1 each PRN DAILY PRN MC SEE COMMENTS Last administered on 12/26/16 09:11; Start 12/23/16 at 08:15; Stop 12/27/16 at 07:23; Status DC Vancomycin HCl 1.75 gm/Sodium Chloride 500 ml @ 250 mls/hr 1X ONCE IV Last administered on 12/23/16 11:23; Start 12/23/16 at 08:30; Stop 12/23/16 at 10:29 ; Status DC Vancomycin HCl/ Sodium Chloride (Iv Sodium Chloride 0.9% 250ml) 250 ml @ 250 mls/hr Q8H IV Last administered on 12/24/16 00:45; Start 12/23/16 at 16:30; Stop 12/24/16 at 09:39; Status DC Vancomycin HCl 1 each 1 each 1X ONCE MC Last administered on 12/24/16 08:00; Start 12/24/16 at 08:00; Stop 12/24/16 at 08:01; Status DC Levofloxacin/ Dextrose (LEVAQUIN 500mg PREMIX) 100 ml @ 100 mls/hr Q24H IV Last administered on 12/26/16 08:11; Start 12/23/16 at 08:30; Stop 12/26/16 at 08:44; Status DC Iohexol (Omnipaque 240 Mg/ml) 30 ml 1X ONCE PO Last administered on 12/23/16 11:09; Start 12/23/16 at 09:00; Stop 12/23/16 at 09:01; Status DC Iohexol (Omnipaque 300 Mg/ml) 75 ml 1X ONCE IV Last administered on 12/23/16 11:08; Start 12/23/16 at 09:00; Stop 12/23/16 at 09:01; Status DC Pantoprazole Sodium (Protonix Vial) 40 mg DAILYAC IVP Last administered on 12/27 08:53; Start 12/23/16 at 12:00 Ondansetron HCl (Zofran) 4 mg PRN Q6HRS PRN IV Nausea; Start 12/26/16 at 07:00 ; Stop 12/27/16 at 06:59; Status DC Fentanyl Citrate (Fentanyl 2ml Vial) 25 mcg PRN Q5MIN PRN IV MILD PAIN; Start 12/26/16 at 07:00; Stop 12/27/16 at 06:59; Status DC Fentanyl Citrate (Fentanyl 2ml Vial) 50 mcg PRN Q5MIN PRN IV MODERATE PAIN; Start 12/26/16 at 07:00; Stop 12/27/16 at 06:59; Status DC Morphine Sulfate 1 mg 1 mg PRN Q10MIN PRN IV SEVERE PAIN; Start 12/26/16 at 07: 00; Stop 12/27/16 at 06:59; Status DC Lactated Ringer's (Iv Lactated Ringers) 1,000 ml @ 30 mls/hr Q24H IV ; Start at 07:00; Stop 12/26/16 at 18:59; Status DC Lidocaine HCl 2 ml 1X PRN PRN ID IV START; Start 12/26/16 at 07:00; Stop at 06:59; Status DC Hydromorphone HCl (Dilaudid) 0.5 mg PRN Q10MIN PRN IV SEVERE PAIN, Second choice; Start 12/26/16 at 07:00; Stop 12/27/16 at 06:59; Status DC Prochlorperazine Edisylate 5 mg 5 mg PACU PRN PRN IV NAUSEA; Start 12/26/16 at 07:00; Stop 12/27/16 at 06:59; Status DC Vancomycin HCl 1.25 gm/Sodium Chloride 250 ml @ 167 mls/hr Q8H IV Last administered on 12/27/16 02:04; Start 12/24/16 at 10:00; Stop 12/27/16 at 07:23 ; Status DC Potassium Chloride (KCl Premix 20meq) 50 ml @ 50 mls/hr Q1H IV Last administered on 12/24/16 15:36; Start 12/24/16 at 10:15; Stop 12/24/16 at 12:14 ; Status DC Potassium Chloride (KCl Oral Soln) 40 meq 1X ONCE GT Last administered on 12/25 11:06; Start 12/25/16 at 10:30; Stop 12/25/16 at 10:31; Status DC Potassium Chloride (KCl Oral Soln) 40 meq 1X ONCE GT ; Start 12/25/16 at 10:15 ; Stop 12/25/16 at 10:15; Status DC Ondansetron HCl (Zofran) 4 mg PRN Q6HRS PRN IV Nausea; Start 12/27/16 at 07:00 ; Stop 12/28/16 at 06:59 Fentanyl Citrate (Fentanyl 2ml Vial) 25 mcg PRN Q5MIN PRN IV MILD PAIN; Start 12/27/16 at 07:00; Stop 12/28/16 at 06:59 Fentanyl Citrate (Fentanyl 2ml Vial) 50 mcg PRN Q5MIN PRN IV MODERATE PAIN; Start 12/27/16 at 07:00; Stop 12/28/16 at 06:59 Morphine Sulfate 1 mg 1 mg PRN Q10MIN PRN IV SEVERE PAIN; Start 12/27/16 at 07: 00; Stop 12/28/16 at 06:59 Lactated Ringer's (Iv Lactated Ringers) 1,000 ml @ 30 mls/hr Q24H IV ; Start at 07:00; Stop 12/27/16 at 18:59 Lidocaine HCl 2 ml 1X PRN PRN ID IV START; Start 12/27/16 at 07:00; Stop at 06:59 Hydromorphone HCl (Dilaudid) 0.5 mg PRN Q10MIN PRN IV SEVERE PAIN, Second choice; Start 12/27/16 at 07:00; Stop 12/28/16 at 06:59 Prochlorperazine Edisylate (Compazine) 5 mg PACU PRN PRN IV NAUSEA; Start 12/27 at 07:00; Stop 12/28/16 at 06:59 Scopolamine 1 patch 1 patch Q3DAYS TD Last administered on 12/26/16t 16:02; Start 12/26/16 at 16:00 Propofol (Diprivan) 20 ml @ As Directed STK-MED ONCE IV ; Start 12/26/16 at 11: 34; Stop 12/27/16 at 09:52; Status DC Rocuronium [place] (Zemuron) 50 mg STK-MED ONCE .ROUTE ; Start 12/26/16 at 12:14 ; Stop 12/27/16 at 09:53; Status DC Fentanyl Citrate (Fentanyl 2ml Vial) 100 mcg STK-MED ONCE .ROUTE ; Start at 12:14; Stop 12/27/16 at 09:53; Status DC Phenylephrine HCl 1 mg STK-MED ONCE IV ; Start 12/26/16 at 12:20; Stop 12/27/16 at 09:53; Status DC Glycopyrrolate (Robinul) 1 mg STK-MED ONCE .ROUTE ; Start 12/26/16 at 12:57; Stop 12/27/16 at 09:54; Status DC Neostigmine Methylsulfate 5 mg STK-MED ONCE .ROUTE ; Start 12/26/16 at 12:57; Stop 12/27/16 at 09:54; Status DC Sevoflurane (Ultane) 15 ml STK-MED ONCE IH ; Start 12/26/16 at 13:11; Stop 12/27 at 09:54; Status DC Active Scripts Active Reported Benazepril Hcl 40 Mg Tablet 1 Tab PO DAILY Amlodipine Besylate 5 Mg Tablet 5 Mg PO DAILY Vitals/I & O Vital Sign - Last 24 Hours 12/26/16 12/26/16 12/26/16 12/26/16 14:30 15:00 15:19 15:20 Pulse 78 82 Resp 22 20 B/P 136/71 134/78 Pulse Ox 100 100 96 O2 Delivery Ventilator Ventilator Ventilator Ventilator 12/26/16 12/26/16 12/26/16 12/26/16 15:30 16:00 16:00 16:02 Temp 97.6 97.6 Pulse 70 70 Resp 18 17 B/P 126/61 110/55 Pulse Ox 100 100 O2 Delivery Ventilator Ventilator Mechanical Ventilator Ventilator 12/26/16 12/26/16 12/26/16 12/26/16 16:30 17:00 17:30 18:00 Pulse 70 74 85 82 Resp 18 18 19 22 B/P 129/72 128/72 136/76 137/71 Pulse Ox 100 100 100 100 O2 Delivery Ventilator Ventilator Ventilator Ventilator 12/26/16 12/26/16 12/26/16 12/26/16 19:00 19:55 20:00 20:00 Temp 98.9 98.9 Pulse 74 86 Resp 18 19 B/P 143/73 155/85 Pulse Ox 100 96 100 O2 Delivery Ventilator Ventilator Ventilator Mechanical Ventilator 12/26/16 12/26/16 12/26/16 12/26/16 21:00 21:35 22:00 23:00 Pulse 74 90 74 Resp 18 19 18 B/P 147/83 135/83 153/83 Pulse Ox 100 100 100 100 O2 Delivery Ventilator Ventilator Ventilator Ventilator 12/26/16 12/27/16 12/27/16 12/27/16 23:20 00:00 00:04 01:00 Temp 98.2 98.2 Pulse 72 86 Resp 20 19 B/P 143/78 152/95 Pulse Ox 100 100 100 O2 Delivery Ventilator Ventilator Mechanical Ventilator Ventilator 12/27/16 12/27/16 12/27/16 12/27/16 01:15 02:00 03:00 03:25 Pulse 87 79 Resp 19 18 B/P 145/90 142/71 Pulse Ox 100 100 100 100 O2 Delivery Ventilator Ventilator Ventilator Ventilator 12/27/16 12/27/16 12/27/16 12/27/16 04:00 04:00 05:00 05:21 Temp 98.2 98.2 Pulse 72 79 Resp 18 19 B/P 145/91 109/60 Pulse Ox 100 100 100 O2 Delivery Ventilator Mechanical Ventilator Ventilator Ventilator 12/27/16 12/27/16 12/27/16 12/27/16 06:00 07:00 07:12 08:00 Pulse 86 70 Resp 20 20 B/P 154/79 121/68 Pulse Ox 100 100 100 O2 Delivery Ventilator Ventilator Ventilator Mechanical Ventilator 12/27/16 12/27/16 12/27/16 12/27/16 08:00 09:00 10:00 11:00 Temp 98.1 98.1 Pulse 78 80 84 82 Resp 20 20 20 20 B/P 157/84 152/76 112/63 123/69 Pulse Ox 100 100 100 100 O2 Delivery Ventilator Ventilator Ventilator Ventilator 12/27/16 11:09 Pulse Ox 100 O2 Delivery Ventilator Intake and Output 12/26/16 12/26/16 12/27/16 15:00 23:00 07:00 Intake Total 0 ml 0 ml 805 ml Output Total 2550 ml 372 ml 290 ml Balance -2550 ml -372 ml 515 ml SANDRA PATTERSON MD Dec 27, 2016 14:14
--- NOTE | 2016-12-27 14:43 | PDOC ---
Progress Note Subjective Subjective No issues with tracheostomy. Sitting out of the bed to the chair this morning. On minimal vent settings. No bleeding. Increased secretions for which he was placed on a scopolamine patch. ROS ROS No nausea No vomiting No pain No rash Vital Sign Vital Signs Vital Signs Date Time Temp Pulse Resp B/P Pulse Ox O2 Delivery O2 Flow Rate FiO2 12/27/16 11:09 100 Ventilator 12/27/16 11:00 82 20 123/69 12/27/16 08:00 98.1 98.1 Labs Lab Laboratory Tests Test 12/27/16 04:45 12/27/16 07:10 White Blood Count 12.3x10^3/uL (4.0-11.0) Red Blood Count 3.06x10^6/uL (4.30-5.70) Hemoglobin 9.9g/dL (13.0-17.5) Hematocrit 28.4% (39.0-53.0) Mean Corpuscular Volume 93fL (79-100) Mean Corpuscular Hemoglobin 32pg (25-35) Mean Corpuscular Hemoglobin Concent 35g/dL (31-37) Red Cell Distribution Width 12.7% (11.5-14.5) Platelet Count 393x10^3/uL (140-400) Neutrophils (%) (Auto) 79% (31-73) Lymphocytes (%) (Auto) 8% (24-48) Monocytes (%) (Auto) 11% (0-9) Eosinophils (%) (Auto) 1% (0-3) Basophils (%) (Auto) 1% (0-3) Neutrophils # (Auto) 9.7x10^3uL (1.8-7.7) Lymphocytes # (Auto) 1.0x10^3/uL (1.0-4.8) Monocytes # (Auto) 1.3x10^3/uL (0.0-1.1) Eosinophils # (Auto) 0.1x10^3/uL (0.0-0.7) Basophils # (Auto) 0.1x10^3/uL (0.0-0.2) Sodium Level 131mmol/L (136-145) Potassium Level 3.8mmol/L (3.5-5.1) Chloride Level 96mmol/L (98-107) Carbon Dioxide Level 23mmol/L (21-32) Anion Gap 12 (6-14) Blood Urea Nitrogen 14mg/dL (8-26) Creatinine 0.7mg/dL (0.7-1.3) Estimated GFR (Cockcroft-Gault) 114.3 Glucose Level 80mg/dL (70-99) Calcium Level 8.2mg/dL (8.5-10.1) O2 Saturation 95% (92-99) Arterial Blood pH 7.51 (7.35-7.45) Arterial Blood pCO2 at Patient Temp 29mmHg (35-46) Arterial Blood pO2 at Patient Temp 76mmHg (65-108) Arterial Blood HCO3 22mmol/L (21-28) Arterial Blood Base Excess 0mmol/L (-3-3) FiO2 30 Objective Assessment POD#1, s/p tracheostomy. No issues with tracheostomy. Sitting out of the bed to the chair this morning. On minimal vent settings. No bleeding. Plan Plan of Care Remove tracheostomy stitches on January 02, 2017. This will most likely be performed at LTAC Routine tracheostomy care Please call with questions TENISHA VILLEGAS MD Dec 27, 2016 14:43
[2016-12-27] MEDS ORDERED: PROPOFOL 20 ML IV ONE (15:17)
--- NOTE | 2016-12-27 16:02 | PDOC4 ---
Operative Note Operative Note EGD with PEG placement Meds propofol per anesthesia Indication oropharyngeal dysphagia Post-op dx non-erosive gastritis S/P PEG 20 FR BARD Plan abdominal binder meds and tube feedings to start GWENDOLYN Chavira MD Dec 27, 2016 16:02
[2016-12-27] MEDS: FENTANYL PF 100 MCG/2 ML VIAL. IV PRN (23:06)
[2016-12-28] VITALS (16 sets, daily range): BP systolic 111–162; BP diastolic 55–85
[2016-12-28] MEDS: PIPERACILLIN/TAZOBACTAM 4.5 GM in IV NORMAL SALINE 100ML 100 ML IV SCH ×2 (00:07→05:41)
[2016-12-28 06:21] LABS: HEMATOCRIT 28.5 % (39.0-53.0); HEMOGLOBIN 10.2 g/dL (13.0-17.5); RED BLOOD COUNT 3.05 x10^6/uL (4.30-5.70); RED CELL DISTRIBUTION WIDTH 13.1 % (11.5-14.5); WHITE BLOOD COUNT 10.7 x10^3/uL (4.0-11.0)
[2016-12-28 06:30] LABS: CALCIUM 8.4 mg/dL (8.5-10.1); CREATININE 0.6 mg/dL (0.7-1.3); GFR 136.5; POTASSIUM 3.7 mmol/L (3.5-5.1)
--- NOTE | 2016-12-28 07:15 | PDOC ---
Infectious Disease Note Subjective Subjective S/p PEG 12/27. ROS ROS Unobtainable Vital Sign Vital Signs Vital Signs Date Time Temp Pulse Resp B/P Pulse Ox O2 Delivery O2 Flow Rate FiO2 12/28/16 06:00 76 18 139/72 100 Ventilator 12/28/16 04:00 98.4 98.4 Physical Exam PHYSICAL EXAM GENERAL: NAD, appears comfortable HEENT: Wound clean NECK: Trach - clean, no JVD, LUNGS: Clear HEART: S1S2, no gallop, no murmur ABD: Soft, NT, PEG, binder EXT: No edema, no cyanosis. 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, no focal neurologic deficit SKIN: No rash IV: PICC - clean Labs Lab Laboratory Tests Test 12/28/16 05:00 White Blood Count 10.7x10^3/uL (4.0-11.0) Red Blood Count 3.05x10^6/uL (4.30-5.70) Hemoglobin 10.2g/dL (13.0-17.5) Hematocrit 28.5% (39.0-53.0) Mean Corpuscular Volume 93fL (79-100) Mean Corpuscular Hemoglobin 33pg (25-35) Mean Corpuscular Hemoglobin Concent 36g/dL (31-37) Red Cell Distribution Width 13.1% (11.5-14.5) Platelet Count 481x10^3/uL (140-400) Sodium Level 130mmol/L (136-145) Potassium Level 3.7mmol/L (3.5-5.1) Chloride Level 97mmol/L (98-107) Carbon Dioxide Level 26mmol/L (21-32) Anion Gap 7 (6-14) Blood Urea Nitrogen 15mg/dL (8-26) Creatinine 0.6mg/dL (0.7-1.3) Estimated GFR (Cockcroft-Gault) 136.5 Glucose Level 99mg/dL (70-99) Calcium Level 8.4mg/dL (8.5-10.1) Objective Assessment Fever - improved overall. Vanc/Zosy/Levoflox started 12/23. Procalcitonin - min elevation. CT head mild residual effect 12/22 some mucosal thickening. F/u neg Leukocytosis - s/p trach/PEG ICH - s/p evac 12/15 Respiratory failure - intubated. Mod sized pleural effusion and IVC ETOH COPD Plan Plan of Care D/c [place] Please call with questions MARISOL SHANKAR MD Dec 28, 2016 07:15
[2016-12-28] MEDS: BUDESONIDE 0.5 MG/2 ML NEBU NEB SCH (08:24)
[2016-12-28 08:31] LABS: HCO3 ABG 22 mmol/L (21-28); PCO2 ABG 28 mmHg (35-46); PH ABG 7.52 (7.35-7.45); PO2 ABG 80 mmHg (65-108); SAT O2 ABG 95 % (92-99)
--- NOTE | 2016-12-28 08:58 | OP ---
DATE OF SURGERY: 12/27/2016 PROCEDURE PERFORMED: Esophagogastroduodenoscopy with percutaneous endoscopic gastrostomy tube placement. PREOPERATIVE DIAGNOSIS: Oropharyngeal dysphagia. POSTOPERATIVE DIAGNOSIS: Status post G-tube placement and nonerosive gastritis. MEDICATIONS RECEIVED: Propofol. DESCRIPTION OF PROCEDURE: After risks and benefits of the procedure including the risk of perforation and cellulitis were discussed with the patient and family, informed consent was obtained. The patient was then placed in the supine position as he was already intubated with a trach. Endoscope was then advanced through esophagus, stomach, and first and second portions of the duodenum after the patient was given propofol by Anesthesia. The anterior abdominal wall was then prepped and draped in the usual sterile fashion as the finger was balloted in the distal body of the stomach. Nonerosive gastritis was encountered. No evidence of duodenal obstruction; no esophagitis, varices, stricture, or tumor was encountered. The anterior abdominal wall was then prepped and draped in the usual sterile fashion. The trocar was then passed through the anterior abdominal wall into the distal body of the stomach, which was grasped with a snare. Wire was then passed through the trocar. Snare, wire, and scope were then withdrawn through the patient's mouth using pull technique, and a 20-I[place] Bard tube was then secured in place. The scope was then straightened and withdrawn. The ____ was noted to be approximately 3 cm, and the patient tolerated the procedure well. No immediate complications. DISPOSITION: Begin meds via the tube immediately. Begin tube feeding for later today at approximately 2000 hours at 30 mL per hour and increase the ____ 60 mL. ____ more securely protect the PEG tube while the tract matures. GWENDOLYN SCOTT MD DR: ISAURO/niles JOB#: [id number] / [id number] LESLYE Goodman MD
[2016-12-28] MEDS: FUROSEMIDE 20 MG/2 ML VIAL IVP SCH (09:00)
[2016-12-28] MEDS: LEVETIRACETAM 500 MG in IV NORMAL SALINE 100ML 100 ML IV SCH (09:01)
[2016-12-28] MEDS: PANTOPRAZOLE IV PUSH 40 MG VIAL. IVP SCH (09:01)
[2016-12-28 09:39] LABS: FIO2 ABG 30
--- NOTE | 2016-12-28 10:49 | PDOC ---
PULMONARY PROGRESS NOTES Subjective S/P TRACH sleepy Vitals Vital Signs Date Time Temp Pulse Resp B/P Pulse Ox O2 Delivery O2 Flow Rate FiO2 12/28/16 10:00 72 15 153/85 100 Ventilator 12/28/16 08:00 98.6 98.6 General: No acute distress HEENT: Other (s/p crani, perrl, orally intubated, nose clear. ) Lungs: Clear Cardiovascular: S1, S2 Abdomen: Soft, Non-tender, Other (no mass) Extremities: No Edema Skin: Warm Labs Laboratory Tests Test 12/27/16 04:45 12/27/16 07:10 12/28/16 05:00 12/28/16 08:00 White Blood Count 12.3x10^3/uL (4.0-11.0) 10.7x10^3/uL (4.0-11.0) Red Blood Count 3.06x10^6/uL (4.30-5.70) 3.05x10^6/uL (4.30-5.70) Hemoglobin 9.9g/dL (13.0-17.5) 10.2g/dL (13.0-17.5) Hematocrit 28.4% (39.0-53.0) 28.5% (39.0-53.0) Mean Corpuscular Volume 93fL (79-100) 93fL (79-100) Mean Corpuscular Hemoglobin 32pg (25-35) 33pg (25-35) Mean Corpuscular Hemoglobin Concent 35g/dL (31-37) 36g/dL (31-37) Red Cell Distribution Width 12.7% (11.5-14.5) 13.1% (11.5-14.5) Platelet Count 393x10^3/uL (140-400) 481x10^3/uL (140-400) Neutrophils (%) (Auto) 79% (31-73) Lymphocytes (%) (Auto) 8% (24-48) Monocytes (%) (Auto) 11% (0-9) Eosinophils (%) (Auto) 1% (0-3) Basophils (%) (Auto) 1% (0-3) Neutrophils # (Auto) 9.7x10^3uL (1.8-7.7) Lymphocytes # (Auto) 1.0x10^3/uL (1.0-4.8) Monocytes # (Auto) 1.3x10^3/uL (0.0-1.1) Eosinophils # (Auto) 0.1x10^3/uL (0.0-0.7) Basophils # (Auto) 0.1x10^3/uL (0.0-0.2) Sodium Level 131mmol/L (136-145) 130mmol/L (136-145) Potassium Level 3.8mmol/L (3.5-5.1) 3.7mmol/L (3.5-5.1) Chloride Level 96mmol/L (98-107) 97mmol/L (98-107) Carbon Dioxide Level 23mmol/L (21-32) 26mmol/L (21-32) Anion Gap 12 (6-14) 7 (6-14) Blood Urea Nitrogen 14mg/dL (8-26) 15mg/dL (8-26) Creatinine 0.7mg/dL (0.7-1.3) 0.6mg/dL (0.7-1.3) Estimated GFR (Cockcroft-Gault) 114.3 136.5 Glucose Level 80mg/dL (70-99) 99mg/dL (70-99) Calcium Level 8.2mg/dL (8.5-10.1) 8.4mg/dL (8.5-10.1) O2 Saturation 95% (92-99) 95% (92-99) Arterial Blood pH 7.51 (7.35-7.45) 7.52 (7.35-7.45) Arterial Blood pCO2 at Patient Temp 29mmHg (35-46) 28mmHg (35-46) Arterial Blood pO2 at Patient Temp 76mmHg (65-108) 80mmHg (65-108) Arterial Blood HCO3 22mmol/L (21-28) 22mmol/L (21-28) Arterial Blood Base Excess 0mmol/L (-3-3) 0mmol/L (-3-3) FiO2 30 30 Laboratory Tests Test 12/28/16 05:00 12/28/16 08:00 White Blood Count 10.7x10^3/uL (4.0-11.0) Red Blood Count 3.05x10^6/uL (4.30-5.70) Hemoglobin 10.2g/dL (13.0-17.5) Hematocrit 28.5% (39.0-53.0) Mean Corpuscular Volume 93fL (79-100) Mean Corpuscular Hemoglobin 33pg (25-35) Mean Corpuscular Hemoglobin Concent 36g/dL (31-37) Red Cell Distribution Width 13.1% (11.5-14.5) Platelet Count 481x10^3/uL (140-400) Sodium Level 130mmol/L (136-145) Potassium Level 3.7mmol/L (3.5-5.1) Chloride Level 97mmol/L (98-107) Carbon Dioxide Level 26mmol/L (21-32) Anion Gap 7 (6-14) Blood Urea Nitrogen 15mg/dL (8-26) Creatinine 0.6mg/dL (0.7-1.3) Estimated GFR (Cockcroft-Gault) 136.5 Glucose Level 99mg/dL (70-99) Calcium Level 8.4mg/dL (8.5-10.1) O2 Saturation 95% (92-99) Arterial Blood pH 7.52 (7.35-7.45) Arterial Blood pCO2 at Patient Temp 28mmHg (35-46) Arterial Blood pO2 at Patient Temp 80mmHg (65-108) Arterial Blood HCO3 22mmol/L (21-28) Arterial Blood Base Excess 0mmol/L (-3-3) FiO2 30 Medications Active Scripts Medications Dose Route/Sig Days Date Category Benazepril Hcl 40 Mg Tablet 1 Tab PO DAILY 12/16/16 Reported Amlodipine Besylate 5 Mg Tablet 5 Mg PO DAILY 12/16/16 Reported Comments LLL INFILTRATE EFFUSION BETTER Impression . 1. Acute respiratory failure secondary ICH 2. 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 3. Underlying chronic obstructive pulmonary disease, unknown FEV1, smoked for 40 years. 4. Underlying alcoholism. 5. Nutrition will need a PEG 6. Fever per ID 7. Nutrition per tube feeding 8. S/P ICV filter 9. ABNORMAL CXR COMPATIBLE WITH FLUID OVERLOAD 10. S/P TRACH 12/26 Plan . START CPAP TRIAL F/U ABG S/P TRACH PEG DONE CXR IS BETTER WITH LASIX OFF SEDATION TUBE FEEDING FOR NOW S/P IVC SCOPOLAMINE PATCH OK WITH LT[facility] TRANSFER MICHAEL RAYA MD Dec 28, 2016 10:49
--- NOTE | 2016-12-28 12:08 | PDOC ---
PROGRESS NOTES Chief Complaint Chief Complaint cc: ams A/P Right frontal craniotomy with evacuation of intracerebral hematoma and placement of external ventricular drain in the right lateral ventricle Alcohol abuse Ventilatory dependent respiratory failure, s/p tracheostomy on 12/26/16 Hyponatremia Fever 2 intracranial hemorrhage vs. asp PNA s/p IVC filter Plan s/p tracheostomy s/p PEG PRN LASIX CIWA protocol for alcohol withdrawal precaution Keppra for seizure precautions BP goal < SBP 130 GI prophylaxis NO dvt prophylaxis Tube feeds Well tolerated. at bedside IVC filter for PE prevention as per [facility] on 12/[address] repeat 12/22/16 better Zosyn Follow ID and NS recommendations. History of Present Illness History of Present Illness extubated on Trach on PEG mechanical ventilation support Vitals Vitals Vital Signs Date Time Temp Pulse Resp B/P Pulse Ox O2 Delivery O2 Flow Rate FiO2 12/28/16 12:00 98.2 68 18 140/72 100 Ventilator 98.2 Physical Exam General: Alert, No acute distress Heart: Regular rate, Normal S1, Normal S2 Lungs: Clear Abdomen: Normal bowel sounds, Soft, No tenderness Extremities: No edema Skin: Other (incision healing well, slava intact, dry) Labs LABS Laboratory Tests Test 12/28/16 05:00 12/28/16 08:00 White Blood Count 10.7x10^3/uL (4.0-11.0) Red Blood Count 3.05x10^6/uL (4.30-5.70) Hemoglobin 10.2g/dL (13.0-17.5) Hematocrit 28.5% (39.0-53.0) Mean Corpuscular Volume 93fL (79-100) Mean Corpuscular Hemoglobin 33pg (25-35) Mean Corpuscular Hemoglobin Concent 36g/dL (31-37) Red Cell Distribution Width 13.1% (11.5-14.5) Platelet Count 481x10^3/uL (140-400) Sodium Level 130mmol/L (136-145) Potassium Level 3.7mmol/L (3.5-5.1) Chloride Level 97mmol/L (98-107) Carbon Dioxide Level 26mmol/L (21-32) Anion Gap 7 (6-14) Blood Urea Nitrogen 15mg/dL (8-26) Creatinine 0.6mg/dL (0.7-1.3) Estimated GFR (Cockcroft-Gault) 136.5 Glucose Level 99mg/dL (70-99) Calcium Level 8.4mg/dL (8.5-10.1) O2 Saturation 95% (92-99) Arterial Blood pH 7.52 (7.35-7.45) Arterial Blood pCO2 at Patient Temp 28mmHg (35-46) Arterial Blood pO2 at Patient Temp 80mmHg (65-108) Arterial Blood HCO3 22mmol/L (21-28) Arterial Blood Base Excess 0mmol/L (-3-3) FiO2 30 Assessment and Plan Assessmemt and Plan Problems Medical Problems: (1) Intraparenchymal hematoma of brain Status: Acute Problems: Comment Review of Relevant I have reviewed the following items jose alfredo (where applicable) has been applied. Labs Laboratory Tests Test 12/27/16 04:45 12/27/16 07:10 12/28/16 05:00 12/28/16 08:00 White Blood Count 12.3x10^3/uL (4.0-11.0) 10.7x10^3/uL (4.0-11.0) Red Blood Count 3.06x10^6/uL (4.30-5.70) 3.05x10^6/uL (4.30-5.70) Hemoglobin 9.9g/dL (13.0-17.5) 10.2g/dL (13.0-17.5) Hematocrit 28.4% (39.0-53.0) 28.5% (39.0-53.0) Mean Corpuscular Volume 93fL (79-100) 93fL (79-100) Mean Corpuscular Hemoglobin 32pg (25-35) 33pg (25-35) Mean Corpuscular Hemoglobin Concent 35g/dL (31-37) 36g/dL (31-37) Red Cell Distribution Width 12.7% (11.5-14.5) 13.1% (11.5-14.5) Platelet Count 393x10^3/uL (140-400) 481x10^3/uL (140-400) Neutrophils (%) (Auto) 79% (31-73) Lymphocytes (%) (Auto) 8% (24-48) Monocytes (%) (Auto) 11% (0-9) Eosinophils (%) (Auto) 1% (0-3) Basophils (%) (Auto) 1% (0-3) Neutrophils # (Auto) 9.7x10^3uL (1.8-7.7) Lymphocytes # (Auto) 1.0x10^3/uL (1.0-4.8) Monocytes # (Auto) 1.3x10^3/uL (0.0-1.1) Eosinophils # (Auto) 0.1x10^3/uL (0.0-0.7) Basophils # (Auto) 0.1x10^3/uL (0.0-0.2) Sodium Level 131mmol/L (136-145) 130mmol/L (136-145) Potassium Level 3.8mmol/L (3.5-5.1) 3.7mmol/L (3.5-5.1) Chloride Level 96mmol/L (98-107) 97mmol/L (98-107) Carbon Dioxide Level 23mmol/L (21-32) 26mmol/L (21-32) Anion Gap 12 (6-14) 7 (6-14) Blood Urea Nitrogen 14mg/dL (8-26) 15mg/dL (8-26) Creatinine 0.7mg/dL (0.7-1.3) 0.6mg/dL (0.7-1.3) Estimated GFR (Cockcroft-Gault) 114.3 136.5 Glucose Level 80mg/dL (70-99) 99mg/dL (70-99) Calcium Level 8.2mg/dL (8.5-10.1) 8.4mg/dL (8.5-10.1) O2 Saturation 95% (92-99) 95% (92-99) Arterial Blood pH 7.51 (7.35-7.45) 7.52 (7.35-7.45) Arterial Blood pCO2 at Patient Temp 29mmHg (35-46) 28mmHg (35-46) Arterial Blood pO2 at Patient Temp 76mmHg (65-108) 80mmHg (65-108) Arterial Blood HCO3 22mmol/L (21-28) 22mmol/L (21-28) Arterial Blood Base Excess 0mmol/L (-3-3) 0mmol/L (-3-3) FiO2 30 30 Laboratory Tests Test 12/28/16 05:00 12/28/16 08:00 White Blood Count 10.7x10^3/uL (4.0-11.0) Red Blood Count 3.05x10^6/uL (4.30-5.70) Hemoglobin 10.2g/dL (13.0-17.5) Hematocrit 28.5% (39.0-53.0) Mean Corpuscular Volume 93fL (79-100) Mean Corpuscular Hemoglobin 33pg (25-35) Mean Corpuscular Hemoglobin Concent 36g/dL (31-37) Red Cell Distribution Width 13.1% (11.5-14.5) Platelet Count 481x10^3/uL (140-400) Sodium Level 130mmol/L (136-145) Potassium Level 3.7mmol/L (3.5-5.1) Chloride Level 97mmol/L (98-107) Carbon Dioxide Level 26mmol/L (21-32) Anion Gap 7 (6-14) Blood Urea Nitrogen 15mg/dL (8-26) Creatinine 0.6mg/dL (0.7-1.3) Estimated GFR (Cockcroft-Gault) 136.5 Glucose Level 99mg/dL (70-99) Calcium Level 8.4mg/dL (8.5-10.1) O2 Saturation 95% (92-99) Arterial Blood pH 7.52 (7.35-7.45) Arterial Blood pCO2 at Patient Temp 28mmHg (35-46) Arterial Blood pO2 at Patient Temp 80mmHg (65-108) Arterial Blood HCO3 22mmol/L (21-28) Arterial Blood Base Excess 0mmol/L (-3-3) FiO2 30 Microbiology 12/23/16 Blood Culture - Final, Complete NO GROWTH AFTER 5 DAYS Medications Current Medications Multivitamins/ Minerals/Folic Acid/Thiamine HCl/ Sodium Chloride (Infuvite Adult / Iv Sodium Chloride 0.9% 1000ml Bag) 1,011.2 ml @ 1,000 mls/ hr 1X ONCE IV Last administered on 12/15/16t 18:53; Start 12/15/16 at 18:45; Stop 12/15/16 at 19: 45; Status DC Ondansetron HCl 4 mg 4 mg 1X ONCE IV ; Start 12/15/16 at 18:45; Stop 12/15/16 at 18:46; Status DC Propofol 0 ml @ As Directed STK-MED ONCE IV ; Start 12/15/16 at 19:57; Stop at 19:58; Status DC Propofol (Diprivan) 50 ml @ As Directed STK-MED ONCE IV ; Start 12/15/16 at 19:57 ; Stop 12/15/16 at 19:58; Status DC Lidocaine HCl 100 mg STK-MED ONCE .ROUTE ; Start 12/15/16 at 20:45; Stop 12/15/16 at 20:46; Status DC Fentanyl Citrate (Fentanyl 2ml Vial) 100 mcg STK-MED ONCE .ROUTE ; Start at 20:46; Stop 12/15/16 at 20:47; Status DC Rocuronium [place] (Zemuron) 50 mg STK-MED ONCE .ROUTE ; Start 12/15/16 at 20:46 ; Stop 12/15/16 at 20:47; Status DC Ondansetron HCl 4 mg 4 mg PRN Q8HRS PRN IV NAUSEA/VOMITING; Start 12/15/16 at 20 :45; Stop 12/15/16 at 23:44; Status DC Sodium Chloride (Iv Sodium Chloride 0.9% 1000ml Bag) 1,000 ml @ 100 mls/hr Q10H IV Last administered on 12/16/16 06:45; Start 12/15/16 at 20:45; Stop 08/22 at 07:25; Status DC Acetaminophen (Tylenol) 650 mg PRN Q4HRS PRN PO FEVER Last administered on 12/16 16:43; Start 12/15/16 at 20:45; Stop 12/16/16 at 20:44; Status DC Etomidate (Amidate) 20 mg 1X ONCE IV Last administered on 12/15/16 19:51; Start 12/15/16 at 20:45; Stop 12/15/16 at 20:53; Status DC Succinylcholine Chloride 100 mg 100 mg 1X ONCE IV Last administered on 19:52; Start 12/15/16 at 20:45; Stop 12/15/16 at 20:53; Status DC Bacitracin/Sodium Chloride (Iv Sodium Chloride 0.9% 1000ml Bag) 1,000 ml @ 1, 000 mls/hr 1X PERIOP ONCE IRR Last administered on 12/15/16 22:05; Start at 21:00; Stop 12/15/16 at 21:59; Status DC Cellulose 1 each STK-MED ONCE .ROUTE Last administered on 12/15/16 22:05; Start 12/15/16 at 20:58; Stop 12/15/16 at 20:59; Status DC Bupivacaine HCl/ Epinephrine Bitart (Sensorcain-Mpf Epi 0.5%-[id number]) 30 ml STK -MED ONCE .ROUTE Last administered on 12/15/16 22:05; Start 12/15/16 at 20:58; Stop 12/15/16 at 20:59; Status DC Gelatin (Gelfoam Size 100) 1 each STK-MED ONCE .ROUTE Last administered on 12/15 22:05; Start 12/15/16 at 20:58; Stop 12/15/16 at 20:59; Status DC Thrombin 13794 unit 20,000 unit STK-MED ONCE TP Last administered on 12/15/16 22:05; Start 12/15/16 at 20:58; Stop 12/15/16 at 20:59; Status DC Propofol (Diprivan) 20 ml @ As Directed STK-MED ONCE IV ; Start 12/15/16 at 21:06 ; Stop 12/15/16 at 21:07; Status DC Desflurane 60 ml 60 ml STK-MED ONCE IH ; Start 12/15/16 at 21:49; Stop 12/15/16 at 21:50; Status DC Cefazolin Sodium/ Dextrose 50 ml @ As Directed STK-MED ONCE IV ; Start 12/15/16 at 21:52; Stop 12/15/16 at 21:53; Status DC Mannitol (Mannitol Iv Soln) 500 ml @ As Directed STK-MED ONCE IV ; Start at 21:53; Stop 12/15/16 at 21:54; Status DC Phenylephrine HCl 1 mg 1 mg STK-MED ONCE IV ; Start 12/15/16 at 21:55; Stop at 21:56; Status DC Levetiracetam/ Sodium Chloride (Keppra/Iv Sodium Chloride 0.9% 100ml) 100 ml @ 400 mls/hr 1X ONCE IV Last administered on 12/15/16t 22:30; Start 12/15/16 at 22 :15; Stop 12/15/16 at 22:29; Status DC Ondansetron HCl (Zofran) 4 mg PRN Q6HRS PRN IV Nausea; Start 12/15/16 at 22:30; Stop 12/16/16 at 14:48; Status DC Fentanyl Citrate (Fentanyl 2ml Vial) 25 mcg PRN Q5MIN PRN IV MILD PAIN; Start 12/15/16 at 22:30; Stop 12/16/16 at 13:00; Status DC Fentanyl Citrate (Fentanyl 2ml Vial) 50 mcg PRN Q5MIN PRN IV MODERATE PAIN; Start 12/15/16 at 22:30; Stop 12/16/16 at 13:00; Status DC Morphine Sulfate 1 mg 1 mg PRN Q10MIN PRN IV SEVERE PAIN; Start 12/15/16 at 22: 30; Stop 12/16/16 at 13:08; Status DC Lactated Ringer's (Iv Lactated Ringers) 1,000 ml @ 0 mls/hr Q0M IV ; Start 12/15 at 22:30; Stop 12/16/16 at 13:08; Status DC Lidocaine HCl 2 ml 1X PRN PRN ID IV START; Start 12/15/16 at 22:30; Stop at 13:08; Status DC Hydromorphone HCl (Dilaudid) 0.5 mg PRN Q10MIN PRN IV SEV PAIN,Second choice; Start 12/15/16 at 22:30; Stop 12/16/16 at 13:01; Status DC Prochlorperazine Edisylate 5 mg 5 mg PACU PRN PRN IV NAUSEA; Start 12/15/16 at 22:30; Stop 12/16/16 at 13:08; Status DC Propofol 100 ml @ As Directed STK-MED ONCE IV ; Start 12/15/16 at 23:13; Stop at 23:14; Status DC Nicardipine HCl/ Sodium Chloride (Cardene/Iv Sodium Chloride 0.9% 250ml) 270 ml @ 27 mls/hr TITRATE PRN IV PER PROTOCOL; Start 12/15/16 at 23:30 Diphenhydramine HCl (Benadryl) 25 mg PRN Q6HRS PRN PO ITCHING; Start 12/15/16 at 23:30; Stop 12/19/16 at 12:54; Status DC Diphenhydramine HCl 25 mg 25 mg PRN Q6HRS PRN IV ITCHING; Start 12/15/16 at 23: 30 Levetiracetam/ Sodium Chloride (Keppra/Iv Sodium Chloride 0.9% 100ml) 105 ml @ 400 mls/hr Q12HR IV Last administered on 12/28/16 09:01; Start 12/16/16 at 09: 00 Sodium Chloride (Normal Saline Flush) 3 ml QSHIFT PRN IV AFTER MEDS AND BLOOD DRAWS; Start 12/15/16 at 23:30 Dextrose 12.5 gm PRN Q15MIN PRN IV SEE COMMENTS; Start 12/15/16 at 23:30 Magnesium Hydroxide (Milk Of Magnesia) 2,400 mg PRN Q12HR PRN PO CONSTIPATION; Start 12/15/16 at 23:30 Ondansetron HCl 4 mg 4 mg PRN Q6HRS PRN IV NAUESA, 1ST CHOICE; Start 12/15/16 at 23:30 Cefazolin Sodium 1 gm/Sodium Chloride 50 ml @ 100 mls/hr Q8HRS IV Last administered on 12/16/16 21:05; Start 12/16/16 at 06:00; Stop 12/16/16 at 22:29 ; Status DC Potassium Chloride/Dextrose/ Sod Cl (KCl 20 Meq In D5W-1/2 NS) 1,000 ml @ 75 mls/hr [id number] IV Last administered on 12/18/16 18:18; Start 12/15/16 at 23:30 ; Stop 12/19/16 at 09:48; Status DC Fentanyl Citrate (Fentanyl 2ml Vial) 25 mcg PRN Q1HR PRN IV PAIN Last administered on 12/24/16 14:15; Start 12/15/16 at 23:30 Fentanyl Citrate (Fentanyl 2ml Vial) 50 mcg PRN Q1HR PRN IV PAIN Last administered on 12/27/16 23:06; Start 12/15/16 at 23:30 Info (Do NOT chart on this placeholder) 1 each 1X ONCE MC ; Start 12/16/16 at 04:00; Stop 12/16/16 at 04:01; Status UNV Pneumococcal Polyvalent Vaccine (Do NOT chart on this placeholder) 1 each 1X ONCE MC ; Start 12/16/16 at 04:00; Stop 12/16/16 at 04:01; Status UNV Influenza Virus Vaccine Quadrival (Fluarix Quad [id number] Syringe) 0.5 ml ONCE ONCE VAX IM Last administered on 12/17/16 08:49; Start 12/16/16 at 09:00; Stop 12/16/16 at 09:01; Status DC Pneumococcal Polyvalent Vaccine 0.5 ml 0.5 ml ONCE ONCE VAX IM Last administered on 12/17/16 08:47; Start 12/16/16 at 09:00; Stop 12/16/16 at 09:01 ; Status DC Propofol 100 ml @ 0 mls/hr CONT PRN IV SEE I/O RECORD Last administered on 12/21 02:53; Start 12/16/16 at 04:30 Propofol 100 ml @ 0 mls/hr CONT PRN IV SEE I/O RECORD; Start 12/16/16 at 00:00 ; Stop 12/16/16 at 03:00; Status Cancel Propofol 100 ml @ 0 mls/hr CONT PRN IV SEE I/O RECORD Last administered on 20:00; Start 12/16/16 at 00:00; Stop 12/16/16 at 09:04; Status DC Multivitamins/ Minerals/Thiamine HCl/Folic Acid/ Sodium Chloride (Infuvite Adult / Iv Sodium Chloride 0.9% 1000ml Bag) 1,011.2 ml @ 100 mls/ hr DAILY IV Last administered on 12/22/16 08:31; Start 12/16/16 at 10:00; Stop 12/22/16 at 09:59 ; Status DC Lorazepam (Ativan) 2 mg PRN Q1HR PRN IV For CIWA 8-14 Last administered on 12/21 21:57; Start 12/16/16 at 10:00; Stop 12/23/16 at 19:01; Status DC Lorazepam (Ativan) 4 mg PRN Q1HR PRN IV For CIWA 15 or greater Last administered on 12/22/16 01:36; Start 12/16/16 at 10:00; Stop 12/23/16 at 19:01 ; Status DC Piperacillin Sod/ Tazobactam Sod (Zosyn Per Pharmacy) 1 each PRN DAILY PRN MC SEE COMMENTS; Start 12/16/16 at 10:30; Stop 12/18/16 at 11:54; Status DC Vancomycin HCl 1 each 1 each PRN DAILY PRN MC SEE COMMENTS Last administered on 12/18/16 04:00; Start 12/16/16 at 10:30; Stop 12/18/16 at 11:54; Status DC Vancomycin HCl 1.5 gm/Sodium Chloride 500 ml @ 250 mls/hr 1X ONCE IV Last administered on 12/16/16 14:08; Start 12/16/16 at 11:00; Stop 12/16/16 at 12:59 ; Status DC Piperacillin Sod/ Tazobactam Sod/ Sodium Chloride (Zosyn/Iv Sodium Chloride 0.9 % 100ml) 100 ml @ 200 mls/hr Q6HRS IV Last administered on 12/18/16 05:11; Start 12/16/16 at 12:00; Stop 12/18/16 at 11:54; Status DC Propofol 1000 mg 1,000 mg STK-MED ONCE IV ; Start 12/15/16 at 23:00; Stop at 13:28; Status DC Vancomycin HCl/ Sodium Chloride (Iv Sodium Chloride 0.9% 250ml) 250 ml @ 250 mls/hr Q12H IV Last administered on 12/18/16 02:00; Start 12/17/16 at 02:00; Stop 12/18/16 at 03:45; Status DC Vancomycin HCl 1 each 1X ONCE MC Last administered on 12/18/16 01:30; Start 12/18/16 at 01:30; Stop 12/18/16 at 11:54; Status DC Hydralazine HCl (Apresoline) 10 mg PRN Q4HRS PRN IVP ELEVATED BP, SEE COMMENTS Last administered on 12/25/16 22:01; Start 12/17/16 at 12:15 Potassium Chloride 40 meq 40 meq 1X ONCE PO ; Start 12/17/16 at 18:15; Stop 09/22 at 18:16; Status Cancel Potassium Chloride 50 ml @ 50 mls/hr Q1H IV Last administered on 12/18/16 00: 55; Start 12/17/16 at 19:00; Stop 12/17/16 at 20:59; Status DC Vancomycin HCl/ Sodium Chloride (Iv Sodium Chloride 0.9% 250ml) 250 ml @ 250 mls/hr Q8H IV Last administered on 12/18/16 03:54; Start 12/18/16 at 04:00; Stop 12/18/16 at 11:54; Status DC Vancomycin HCl 1 each 1X ONCE MC ; Start 12/19/16 at 03:30; Stop 12/19/16 at 03 :30; Status DC Budesonide (Pulmicort) 0.5 mg RTBID NEB Last administered on 12/28/16 08:24; Start 12/18/16 at 08:00 Vecuronium [place] 6 mg 6 mg 1X ONCE IV Last administered on 12/18/16 13:09; Start 12/18/16 at 13:00; Stop 12/18/16 at 13:01; Status DC Magnesium Sulfate/ Dextrose 50 ml @ 25 mls/hr 1X ONCE IV Last administered on 12/18/16 15:34; Start 12/18/16 at 15:00; Stop 12/18/16 at 16:59; Status DC Potassium Chloride 100 ml @ 100 mls/hr Q1H IV Last administered on 12/18/16 18:17; Start 12/18/16 at 15:00; Stop 12/18/16 at 18:59; Status DC Cefazolin Sodium 1 gm/Sodium Chloride 50 ml @ 100 mls/hr Q8HRS IV Last administered on 12/22/16 05:34; Start 12/19/16 at 10:00; Stop 12/22/16 at 10:01 ; Status DC Magnesium Sulfate/ Dextrose 50 ml @ 25 mls/hr 1X ONCE IV Last administered on 12/19/16 10:42; Start 12/19/16 at 10:30; Stop 12/19/16 at 12:29; Status DC Sodium Chloride/ Potassium Chloride/ Potassium Phosphate/ Magnesium Sulfate/ Calcium Gluconate/ Multivitamins/ Minerals/Chromium/ Copper/Manganese/ Seleni/Zn /Total Parenteral Nutrition/Amino Acids/Dextrose/ Fat Emulsion Intravenous ( Sodium Chloride/ Potassium Phospha... 87.0013 ml @ 3.625 mls/hr TPN CONT IV ; Start 12/19/16 at 22:00; Stop 12/19/16 at 22:00; Status Cancel Info 1 each 1 each PRN DAILY PRN MC SEE COMMENTS; Start 12/19/16 at 10:00; Stop 12/19/16 at 10:00; Status DC Potassium Chloride (KCl Premix 10meq) 100 ml @ 100 mls/hr Q1H IV Last administered on 12/19/16 20:52; Start 12/19/16 at 11:00; Stop 12/19/16 at 14:59 ; Status DC Acetaminophen (Tylenol) 650 mg PRN Q6HRS PRN PO MILD PAIN / TEMP; Start at 13:45; Status Cancel Acetaminophen 650 mg 650 mg PRN Q6HRS PRN PEG MILD PAIN / TEMP Last administered on 12/25/16 21:04; Start 12/19/16 at 14:00 Potassium Chloride/Sodium Chloride (Iv Sodium Chloride 0.45%) 1,015 ml @ 75 mls /hr [id number] IV Last administered on 12/19/16 21:24; Start 12/19/16 at 21:30; Stop 12/20/16 at 08:48; Status DC Furosemide (Lasix) 20 mg 1X ONCE IVP Last administered on 12/20/16 09:09; Start 12/20/16 at 09:30; Stop 12/20/16 at 09:31; Status DC Iohexol (Omnipaque 300 Mg/ml) 100 ml STK-MED ONCE .ROUTE ; Start 12/20/16 at 16: 17; Stop 12/20/16 at 16:18; Status DC Lidocaine HCl 20 ml 20 ml STK-MED ONCE .ROUTE ; Start 12/20/16 at 16:17; Stop at 16:18; Status DC Heparin Sodium/ Sodium Chloride 500 ml @ As Directed STK-MED ONCE .ROUTE ; Start 12/20/16 at 16:17; Stop 12/20/16 at 16:18; Status DC Heparin Sodium/ Sodium Chloride 1,000 unit 1X ONCE IART Last administered on 16:45; Start 12/20/16 at 16:45; Stop 12/20/16 at 16:46; Status DC Iohexol (Omnipaque 300 Mg/ml) 100 ml 1X ONCE IART Last administered on 16:45; Start 12/20/16 at 16:45; Stop 12/20/16 at 16:46; Status DC Lidocaine HCl 20 ml 1X ONCE IJ Last administered on 12/20/16 16:45; Start at 16:45; Stop 12/20/16 at 16:46; Status DC Furosemide (Lasix) 40 mg 1X ONCE IVP Last administered on 12/21/16 11:35; Start 12/21/16 at 10:15; Stop 12/21/16 at 10:17; Status DC Scopolamine (Transderm-Scop) 1 patch Q3DAYS TD ; Start 12/24/16 at 09:00; Status UNV Atropine Sulfate 1 drop 1 drop PRN Q2HR PRN SL SECRETIONS Last administered on 12/21/16 21:57; Start 12/21/16 at 19:30; Stop 12/26/16 at 15:48; Status DC Piperacillin Sod/ Tazobactam Sod/ Sodium Chloride (Zosyn/Iv Sodium Chloride 0.9 % 100ml) 100 ml @ 200 mls/hr Q6HRS IV Last administered on 12/28/16 05:41; Start 12/22/16 at 11:00; Stop 12/28/16 at 07:16; Status DC Piperacillin Sod/ Tazobactam Sod 1 each 1 each PRN DAILY PRN MC SEE COMMENTS; Start 12/22/16 at 10:00; Stop 12/22/16 at 10:12; Status DC Potassium Chloride (KCl Premix 20meq) 50 ml @ 50 mls/hr Q1H IV Last administered on 12/22/16 17:22; Start 12/22/16 at 15:00; Stop 12/22/16 at 16:59 ; Status DC Furosemide (Lasix) 20 mg DAILY IVP Last administered on 12/28/16 09:00; Start 12/22/16 at 15:30; Stop 12/29/16 at 15:29 Vancomycin HCl 1 each 1 each PRN DAILY PRN MC SEE COMMENTS Last administered on 12/26/16 09:11; Start 12/23/16 at 08:15; Stop 12/27/16 at 07:23; Status DC Vancomycin HCl 1.75 gm/Sodium Chloride 500 ml @ 250 mls/hr 1X ONCE IV Last administered on 12/23/16 11:23; Start 12/23/16 at 08:30; Stop 12/23/16 at 10:29 ; Status DC Vancomycin HCl/ Sodium Chloride (Iv Sodium Chloride 0.9% 250ml) 250 ml @ 250 mls/hr Q8H IV Last administered on 12/24/16 00:45; Start 12/23/16 at 16:30; Stop 12/24/16 at 09:39; Status DC Vancomycin HCl 1 each 1 each 1X ONCE MC Last administered on 12/24/16 08:00; Start 12/24/16 at 08:00; Stop 12/24/16 at 08:01; Status DC Levofloxacin/ Dextrose (LEVAQUIN 500mg PREMIX) 100 ml @ 100 mls/hr Q24H IV Last administered on 12/26/16 08:11; Start 12/23/16 at 08:30; Stop 12/26/16 at 08:44; Status DC Iohexol (Omnipaque 240 Mg/ml) 30 ml 1X ONCE PO Last administered on 12/23/16 11:09; Start 12/23/16 at 09:00; Stop 12/23/16 at 09:01; Status DC Iohexol (Omnipaque 300 Mg/ml) 75 ml 1X ONCE IV Last administered on 12/23/16 11:08; Start 12/23/16 at 09:00; Stop 12/23/16 at 09:01; Status DC Pantoprazole Sodium (Protonix Vial) 40 mg DAILYAC IVP Last administered on 12/28 09:01; Start 12/23/16 at 12:00 Ondansetron HCl (Zofran) 4 mg PRN Q6HRS PRN IV Nausea; Start 12/26/16 at 07:00 ; Stop 12/27/16 at 06:59; Status DC Fentanyl Citrate (Fentanyl 2ml Vial) 25 mcg PRN Q5MIN PRN IV MILD PAIN; Start 12/26/16 at 07:00; Stop 12/27/16 at 06:59; Status DC Fentanyl Citrate (Fentanyl 2ml Vial) 50 mcg PRN Q5MIN PRN IV MODERATE PAIN; Start 12/26/16 at 07:00; Stop 12/27/16 at 06:59; Status DC Morphine Sulfate 1 mg 1 mg PRN Q10MIN PRN IV SEVERE PAIN; Start 12/26/16 at 07: 00; Stop 12/27/16 at 06:59; Status DC Lactated Ringer's (Iv Lactated Ringers) 1,000 ml @ 30 mls/hr Q24H IV ; Start at 07:00; Stop 12/26/16 at 18:59; Status DC Lidocaine HCl 2 ml 1X PRN PRN ID IV START; Start 12/26/16 at 07:00; Stop at 06:59; Status DC Hydromorphone HCl (Dilaudid) 0.5 mg PRN Q10MIN PRN IV SEVERE PAIN, Second choice; Start 12/26/16 at 07:00; Stop 12/27/16 at 06:59; Status DC Prochlorperazine Edisylate 5 mg 5 mg PACU PRN PRN IV NAUSEA; Start 12/26/16 at 07:00; Stop 12/27/16 at 06:59; Status DC Vancomycin HCl 1.25 gm/Sodium Chloride 250 ml @ 167 mls/hr Q8H IV Last administered on 12/27/16 02:04; Start 12/24/16 at 10:00; Stop 12/27/16 at 07:23 ; Status DC Potassium Chloride (KCl Premix 20meq) 50 ml @ 50 mls/hr Q1H IV Last administered on 12/24/16 15:36; Start 12/24/16 at 10:15; Stop 12/24/16 at 12:14 ; Status DC Potassium Chloride (KCl Oral Soln) 40 meq 1X ONCE GT Last administered on 12/25 11:06; Start 12/25/16 at 10:30; Stop 12/25/16 at 10:31; Status DC Potassium Chloride (KCl Oral Soln) 40 meq 1X ONCE GT ; Start 12/25/16 at 10:15 ; Stop 12/25/16 at 10:15; Status DC Ondansetron HCl (Zofran) 4 mg PRN Q6HRS PRN IV Nausea; Start 12/27/16 at 07:00 ; Stop 12/28/16 at 06:59; Status DC Fentanyl Citrate (Fentanyl 2ml Vial) 25 mcg PRN Q5MIN PRN IV MILD PAIN; Start 12/27/16 at 07:00; Stop 12/28/16 at 06:59; Status DC Fentanyl Citrate (Fentanyl 2ml Vial) 50 mcg PRN Q5MIN PRN IV MODERATE PAIN; Start 12/27/16 at 07:00; Stop 12/28/16 at 06:59; Status DC Morphine Sulfate 1 mg 1 mg PRN Q10MIN PRN IV SEVERE PAIN; Start 12/27/16 at 07: 00; Stop 12/28/16 at 06:59; Status DC Lactated Ringer's (Iv Lactated Ringers) 1,000 ml @ 30 mls/hr Q24H IV ; Start at 07:00; Stop 12/27/16 at 18:59; Status DC Lidocaine HCl 2 ml 1X PRN PRN ID IV START; Start 12/27/16 at 07:00; Stop at 06:59; Status DC Hydromorphone HCl (Dilaudid) 0.5 mg PRN Q10MIN PRN IV SEVERE PAIN, Second choice; Start 12/27/16 at 07:00; Stop 12/28/16 at 06:59; Status DC Prochlorperazine Edisylate (Compazine) 5 mg PACU PRN PRN IV NAUSEA; Start 12/27 at 07:00; Stop 12/28/16 at 06:59; Status DC Scopolamine 1 patch 1 patch Q3DAYS TD Last administered on 12/26/16t 16:02; Start 12/26/16 at 16:00 Propofol (Diprivan) 20 ml @ As Directed STK-MED ONCE IV ; Start 12/26/16 at 11: 34; Stop 12/27/16 at 09:52; Status DC Rocuronium [place] (Zemuron) 50 mg STK-MED ONCE .ROUTE ; Start 12/26/16 at 12:14 ; Stop 12/27/16 at 09:53; Status DC Fentanyl Citrate (Fentanyl 2ml Vial) 100 mcg STK-MED ONCE .ROUTE ; Start at 12:14; Stop 12/27/16 at 09:53; Status DC Phenylephrine HCl 1 mg STK-MED ONCE IV ; Start 12/26/16 at 12:20; Stop 12/27/16 at 09:53; Status DC Glycopyrrolate (Robinul) 1 mg STK-MED ONCE .ROUTE ; Start 12/26/16 at 12:57; Stop 12/27/16 at 09:54; Status DC Neostigmine Methylsulfate 5 mg STK-MED ONCE .ROUTE ; Start 12/26/16 at 12:57; Stop 12/27/16 at 09:54; Status DC Sevoflurane 15 ml 15 ml STK-MED ONCE IH ; Start 12/26/16 at 13:11; Stop at 09:54; Status DC Propofol (Diprivan) 20 ml @ As Directed STK-MED ONCE IV ; Start 12/27/16 at 15: 17; Stop 12/27/16 at 15:18; Status DC Active Scripts Active Reported Benazepril Hcl 40 Mg Tablet 1 Tab PO DAILY Amlodipine Besylate 5 Mg Tablet 5 Mg PO DAILY Vitals/I & O Vital Sign - Last 24 Hours 12/27/16 12/27/16 12/27/16 12/27/16 13:00 13:00 14:00 14:55 Temp 99 99.0 Pulse 80 82 65 Resp 18 16 16 B/P 155/71 143/71 Pulse Ox 100 100 100 100 O2 Delivery Ventilator Ventilator Ventilator 12/27/16 12/27/16 12/27/16 12/27/16 15:00 15:32 16:00 16:00 Temp 99.5 99.5 Pulse 64 76 Resp 18 18 B/P 145/67 130/68 Pulse Ox 100 100 100 O2 Delivery Ventilator Ventilator Ventilator Mechanical Ventilator 12/27/16 12/27/16 12/27/16 12/27/16 17:00 17:44 18:00 19:00 Pulse 78 80 82 Resp 19 20 16 B/P 160/82 154/84 152/85 Pulse Ox 100 100 100 100 O2 Delivery Ventilator Ventilator Ventilator Ventilator 12/27/16 12/27/16 12/27/16 12/27/16 20:00 20:00 20:07 21:00 Temp 98.2 98.2 Pulse 86 76 Resp 16 16 B/P 162/84 149/85 Pulse Ox 100 100 100 O2 Delivery Ventilator Mechanical Ventilator Ventilator Ventilator 12/27/16 12/27/16 12/27/16 12/27/16 22:00 23:00 23:06 23:21 Pulse 86 67 Resp 18 16 22 B/P 162/84 163/90 Pulse Ox 100 100 99 100 O2 Delivery Ventilator Ventilator Ventilator Ventilator 12/27/16 12/28/16 12/28/16 12/28/16 23:45 00:00 00:00 01:00 Temp 97.7 97.7 Pulse 66 79 Resp 16 16 16 B/P 121/63 162/82 Pulse Ox 100 99 99 O2 Delivery Room Air Ventilator Mechanical Ventilator Ventilator 12/28/16 12/28/16 12/28/16 12/28/16 01:07 02:00 03:00 03:30 Pulse 71 81 Resp 16 18 B/P 119/60 140/74 Pulse Ox 100 98 98 100 O2 Delivery Ventilator Ventilator Ventilator Ventilator 12/28/16 12/28/16 12/28/16 12/28/16 04:00 04:00 05:00 05:35 Temp 98.4 98.4 Pulse 70 78 Resp 16 16 B/P 111/55 151/75 Pulse Ox 100 100 100 O2 Delivery Ventilator Mechanical Ventilator Ventilator Ventilator 12/28/16 12/28/16 12/28/16 12/28/16 06:00 07:00 08:00 08:00 Temp 98.6 98.6 Pulse 76 81 82 Resp 18 19 18 B/P 139/72 136/77 141/80 Pulse Ox 100 100 100 O2 Delivery Ventilator Ventilator Ventilator Mechanical Ventilator 12/28/16 12/28/16 12/28/16 12/28/16 08:24 09:00 09:23 10:00 Pulse 71 72 Resp 18 15 B/P 112/59 153/85 Pulse Ox 100 100 100 100 O2 Delivery Ventilator Ventilator Ventilator Ventilator 12/28/16 12/28/16 12/28/16 11:00 12:00 12:00 Temp 98.2 98.2 Pulse 78 68 Resp 19 18 B/P 116/61 140/72 Pulse Ox 100 100 O2 Delivery Ventilator Mechanical Ventilator Ventilator Intake and Output 12/27/16 12/27/16 12/28/16 15:00 23:00 07:00 Intake Total 0 ml 564 ml Output Total 900 ml 1145 ml 345 ml Balance -900 ml -1145 ml 219 ml SANDRA PATTERSON MD Dec 28, 2016 12:08
[2016-12-28 12:44] LABS: HCO3 ABG 27 mmol/L (21-28); PCO2 ABG 32 mmHg (35-46); PH ABG 7.54 (7.35-7.45); PO2 ABG 83 mmHg (65-108); SAT O2 ABG 96 % (92-99)
[2016-12-28 12:46] LABS: FIO2 ABG 30
--- NOTE | 2016-12-28 13:23 | PDOC ---
Objective: Objective: Per RN - PEG functioning, having loose stools. Vital Signs: Vital Signs Date Time Temp Pulse Resp B/P Pulse Ox O2 Delivery O2 Flow Rate FiO2 12/28/16 13:00 81 20 112/58 100 Ventilator 12/28/16 12:00 98.2 98.2 Labs: Laboratory Tests Test 12/28/16 05:00 12/28/16 08:00 12/28/16 12:30 White Blood Count 10.7x10^3/uL Red Blood Count 3.05x10^6/uL Hemoglobin 10.2g/dL Hematocrit 28.5% Mean Corpuscular Volume 93fL Mean Corpuscular Hemoglobin 33pg Mean Corpuscular Hemoglobin Concent 36g/dL Red Cell Distribution Width 13.1% Platelet Count 481x10^3/uL Sodium Level 130mmol/L Potassium Level 3.7mmol/L Chloride Level 97mmol/L Carbon Dioxide Level 26mmol/L Anion Gap 7 Blood Urea Nitrogen 15mg/dL Creatinine 0.6mg/dL Estimated GFR (Cockcroft-Gault) 136.5 Glucose Level 99mg/dL Calcium Level 8.4mg/dL O2 Saturation 95% 96% Arterial Blood pH 7.52 7.54 Arterial Blood pCO2 at Patient Temp 28mmHg 32mmHg Arterial Blood pO2 at Patient Temp 80mmHg 83mmHg Arterial Blood HCO3 22mmol/L 27mmol/L Arterial Blood Base Excess 0mmol/L 4mmol/L FiO2 30 30 Imaging: EGD/PEG 12/27/16: non-erosive gastritis, S/P PEG 20 FR BARD PE: GEN: NAD LUNGS: trach HEART: S1S2 ABD: abd binder, PEG intact NEURO/PSYCH: moving right arm A/P: S/p PEG 12/27/16 -feedings going well, might change due to loose stools -- Possible DC to [facility] today/tomorrow. HANNAH WISE Dec 28, 2016 13:23
--- NOTE | 2016-12-31 03:56 | DS ---
DATE OF DISCHARGE: 12/28/2016 DISCHARGE DIAGNOSES: 1. Right frontal craniotomy with evacuation of intracerebral hematoma and placement of extraventricular drain in right lateral ventricle. 2. Alcohol abuse. 3. 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 4. Hyponatremia. 5. Fever likely due to intracranial hemorrhage. 6. Status post inferior vena cava filter placement. 7. Status post percutaneous endoscopic gastrostomy tube placement. BRIEF HOSPITAL COURSE: This is a 61-year-old male patient admitted to the hospital on 12/15/2016 for mental status changes. He was diagnosed with massive intracranial hemorrhage and at this time, he was evaluated by Dr. Paredes. He had a right frontal intracerebral hematoma and ____ frontal craniotomy and evacuation was done. However, his hospital course was complicated due to respiratory failure. The patient could not able to ____ well and he was requiring a tracheostomy. On 12/26/2016, he had a tracheostomy done and 12/27/2016, the patient had a PEG tube placed for malnutrition. The patient continued to show some improvement; however, his mental status is still not completely improved. He has some physical weakness on the left upper extremity. For continued care, he has been transferred to LTAC in stable condition. During hospitalization, he received some antibiotics; however, he was stopped. Initially, it was started thinking that the patient might had aspiration pneumonia; however, blood cultures did not show any growth and his antibiotics have been discontinued by Infectious Disease. DISCHARGE EXAMINATION: Please see my progress note. DISCHARGE CONDITION: Stable. DISCHARGE DISPOSITION: LTAC. PROGNOSIS: Guarded. MEDICATIONS: Reviewed and reconciled. Please see MRAD. FOLLOWUP: With telesales agent at LTAC. Total time spent for discharge is 32 minutes for patient education, counseling and coordination of care. is at bedside. She is aware of the plan and all questions answered. SANDRA PATTERSON MD DR: ALICIA/niles JOB#: [id number] / [id number]
== END 2016-12-28 16:36 | DRG 3 ==
LOC: ER 18:06 → 1 WEST ICU 20:49
PROVIDERS: ADMIT Internal Medicine; ATTEND Internal Medicine
PROC: 0BH17EZ Insertion of Endotracheal Airway into Trachea, Via Natural or Artificial Opening (ICD-10-PCS; 2016-12-15)
PROC: 5A1955Z Respiratory Ventilation, Greater than 96 Consecutive Hours (ICD-10-PCS; 2016-12-15)
PROC: 0B110F4 Bypass Trachea to Cutaneous with Tracheostomy Device, Open Approach (ICD-10-PCS; 2016-12-15)
PROC: 009600Z Drainage of Cerebral Ventricle with Drainage Device, Open Approach (ICD-10-PCS; 2016-12-15)
PROC: 00C70ZZ Extirpation of Matter from Cerebral Hemisphere, Open Approach (ICD-10-PCS; principal; 2016-12-15 20:52)
PROC: 02HV33Z Insertion of Infusion Device into Superior Vena Cava, Percutaneous Approach (ICD-10-PCS; 2016-12-19)
PROC: 06H03DZ Insertion of Intraluminal Device into Inferior Vena Cava, Percutaneous Approach (ICD-10-PCS; 2016-12-21)
PROC: 30233N1 Transfusion of Nonautologous Red Blood Cells into Peripheral Vein, Percutaneous Approach (ICD-10-PCS; 2016-12-25)
PROC: 0DH63UZ Insertion of Feeding Device into Stomach, Percutaneous Approach (ICD-10-PCS; 2016-12-27)
DX: S06.340A Traumatic hemorrhage of right cerebrum without loss of consciousness, initial encounter (principal); J96.00 Acute respiratory failure, unspecified whether with hypoxia or hypercapnia; G92 Toxic encephalopathy; E87.1 Hypo-osmolality and hyponatremia; E87.3 Alkalosis; J90 Pleural effusion, not elsewhere classified; Z99.11 Dependence on respirator [ventilator] status; D72.829 Elevated white blood cell count, unspecified; I10 Essential (primary) hypertension; J44.9 Chronic obstructive pulmonary disease, unspecified; R13.12 Dysphagia, oropharyngeal phase; K29.70 Gastritis, unspecified, without bleeding; E87.70 Fluid overload, unspecified; K57.30 Diverticulosis of large intestine without perforation or abscess without bleeding; R50.82 Postprocedural fever; F10.229 Alcohol dependence with intoxication, unspecified; X58.XXXA Exposure to other specified factors, initial encounter; W19.XXXA Unspecified fall, initial encounter; Z80.0 Family history of malignant neoplasm of digestive organs; Z82.49 Family history of ischemic heart disease and other diseases of the circulatory system; Z86.73 Personal history of transient ischemic attack (TIA), and cerebral infarction without residual deficits; Z87.891 Personal history of nicotine dependence; Z91.81 History of falling; Y93.89 Activity, other specified; Y92.89 Other specified places as the place of occurrence of the external cause; Y99.8 Other external cause status
CPT/HCPCS: 31500; 36415; 36600; 37191; 51702; 70450; 71010; 71260; 72125; 74177; 76937; 80048; 80053; 80202; 82805; 83735; 84100; 84145; 85007; 85027; 85610; 86850; 86900; 86901; 86920; 87040; 87641; 87804; 88304; 90686; 90732; 93005; 94002; 94003; 94640; 96374; 96375; C1713; C1892; C1894; C9113; G0480; G6038; J0330; J0360; J0690; J1940; J1953; J1956; J2060; J2370; J2543; J2704; J2710; J3010; J3370; J3480; J3490; J7030; J7040; J7050; J7060; Q9966; Q9967; 80196; 97530; 97535; 99291-25

== ENCOUNTER 2019-01-09 21:03 | Inpatient (IN) | payer OTHER ==
[~2019-01-09] VITALS: Ht 172.7 cm; Wt 80.1 kg
[~2019-01-09 21:03] MED LIST: AMLO5TAB10 PO; BENA40TA3 PO
--- NOTE | 2019-01-09 21:41 | PHYS DOC ---
Past Medical History Past Medical History: Hypertension, Other Additional Past Medical Histor: ALCOHOL ABUSE (CASSY RODAS APRN) Past Surgical History: Other (CASSY RODAS APRN) Alcohol Use: Heavy Drug Use: None (CASSY RODAS APRN) Adult General Chief Complaint Chief Complaint: LOWER EXT PAIN [facility] HPI Patient is a 63 year old male with history of hypertension, CVA, left upper extremity contraction, who presents to the ED today from a snf for DVT of the left lower extremity which was diagnosed this evening via ultrasound. Family states patient was supposed to be started on Xarelto. They state the medicine is not available at the snf right now and they do not know when it will come. Patient denies any shortness of breath. Denies any chest pain. Most of the history was provided by family members present in the room (CASSY RODAS APRN) Review of Systems Review of Systems Constitutional: Denies fever or chills [] Eyes: Denies change in visual acuity, redness, or eye pain [] HENT: Denies nasal congestion or sore throat [] Respiratory: Denies cough or shortness of breath [] Cardiovascular: No additional information not addressed in HPI [] GI: Denies abdominal pain, nausea, vomiting, bloody stools or diarrhea [] : Denies dysuria or hematuria [] Musculoskeletal: Reports left lower extremity swelling, diagnosis for DVT Neurologic: Denies headache, focal weakness or sensory changes [] All other systems were reviewed and found to be within normal limits, except as documented in this note. (CASSY RODAS APRN) Allergies Allergies Allergies Coded Allergies Type Severity Reaction Last Updated Verified No Known Drug Allergies 12/15/16 No (JERRI BAILEY DO) Physical Exam Physical Exam Constitutional: Well developed, well nourished, no acute distress, non-toxic appearance. [] HENT: Normocephalic, atraumatic, bilateral external ears normal, oropharynx moist, no oral exudates, nose normal. [] Eyes: PERRLA, EOMI, conjunctiva normal, no discharge. [] Neck: Normal range of motion, no tenderness, supple, no stridor. [] Cardiovascular:Heart rate regular rhythm, no murmur [] Lungs & Thorax: Bilateral breath sounds clear to auscultation [] Abdomen: Bowel sounds normal, soft, no tenderness, no masses, no pulsatile masses. [] Skin: Warm, dry, no erythema, no rash. [] Back: No tenderness, no CVA tenderness. [] Extremities: Left lower extremity with +3 edema. There is erythema throughout the left lower extremity. The calf feels tight. Positive Homans sign. +1 left pedal pulse. Cap refill less than 2 seconds the left toes. Sensation intact. LUE appears contracted. Neurologic: Alert and oriented X 3 though aggressive with the all the nursing staff in the room including me, normal motor function, normal sensory function, no focal deficits noted. [] Psychologic: Affect normal, judgement normal, mood normal. [] (CASSY RODAS APRN) Current Patient Data Vital Signs Vital Signs Date Time Temp Pulse Resp B/P (MAP) Pulse Ox O2 Delivery O2 Flow Rate FiO2 01/09/19 21:03 98.0 91 20 149/83 (105) 98 Room Air 98.0 (BAILEY,JERRI Guevara DO) EKG EKG [] (CASSY RODAS APRN) Radiology/Procedures Radiology/Procedures [] (CASSY RODAS APRN) Course & Med Decision Making Course & Med Decision Making Pertinent Labs and Imaging studies reviewed. (See chart for details) This is a 63-year-old male patient presented to the ED today to be evaluated from a snf because he was diagnosed with a DVT to the left lower extremity and the snf did not have Xarelto. Spoke with DR. Jung who will accept patient for admission. Awaiting labs Dr. Jung -informs me he talked to the family, they informed him patient has history of a very bad he will right CVA that happened in 2017 and he had to undergo major surgery by Dr. Paredes. He requested we order CT of the head if negative and labs look ok specifically renal function either him or i can start patient on Lovenox BID and Coumadin considering Xarelto is contraindicated with previous hemorrhagic CVA. Patient was admitted to the floor before labs were back and CT. I followed up with the CT results, there is slight concern for subdural collection which appears chronic although some subtle internal hyperdensity possibly late subacute hemorrhagic component. Non emergent MRI recommended. I gave the medical office secretary information to contact , she states she left a message on the number she has which include the office number as well as his nurse practitioner Aundrea's number but nobody has returned her call. I put an oder for MRI in am I also put a consult for Dr. Paredes and Dr. Roman. (CASSY RODAS APRN) Dragon Disclaimer Dragon Disclaimer This electronic medical record was generated, in whole or in part, using a voice recognition dictation system. (CASSY RODAS APRN) Departure Departure Impression: Primary Impression: Left leg DVT Additional Impression: Altered mental status Disposition: ADMITTED INPATIENT Condition: STABLE Referrals: LISA KAUR (PCP) Attending Signature Attending Signature I have reviewed the PA/W[employer] IN[employer]CTOR's note and plan of care. I was available for consultation as needed during the patient's visit in the emergency department. I agree with the clinical impression, plan, and disposition. (JERRI BAILEY DO) Problem Qualifiers Primary Impression: Left leg DVT Affected thrombotic vein of extremity: femoral Chronicity: acute Qualified Codes: I82.412 - Acute embolism and thrombosis of left femoral vein Additional Impression: Altered mental status Altered mental status type: unspecified Qualified Codes: R41.82 - Altered mental status, unspecified CASSY RODAS APRN Jan 09, 2019 21:41 JERRI BAILEY DO Jan 10, 2019 04:43
--- NOTE | 2019-01-09 22:33 | RAD ---
CT HEAD WO CONTRAST History: Altered mental status Comparison: 12/22/2016 Technique: Noncontrast CT imaging was performed of the head. Exposure: One or more of the following individualized dose reduction techniques were utilized for this examination: 1. Automated exposure control 2. Adjustment of the mA and/or kV according to patient size 3. Use of iterative reconstruction technique. Findings: No acute hyperdense intracranial hemorrhage is identified. Previously seen right basal ganglia hemorrhage has been replaced by area of encephalomalacia. There is also encephalomalacia with cortical involvement of the right frontal lobe as seen previously. Previously seen intraventricular hemorrhage is no longer visualized. There is increased moderate to severe third and lateral ventriculomegaly, fourth ventricle also somewhat more dilated than previously. There is no midline shift. There is residual right frontal subdural collection about 1.2 cm greatest thickness, subtle slightly mixed density characteristics although mostly hypodense, not significantly hyperdense. There has been right frontal parietal craniotomy. Visualized paranasal sinuses are aerated. Mastoid air cells are aerated. Impression: 1. Compared with the 2017 exam, focus of previously seen right basal ganglia hemorrhage has been replaced by large focus of encephalomalacia, also encephalomalacia extending to the right frontal cortical surface. There is residual right frontal region subdural collection which appears primarily to be more chronic, although some subtle internal hyperdensity possibly late subacute hemorrhagic component. This would be more accurately characterized with nonemergent MRI if clinically needed. There is increased third and lateral ventriculomegaly compared with previous exam, may be component of hydrocephalus given somewhat disproportionate size of ventricles comparing with the subarachnoid spaces. Electronically signed by: Blaine Herrera MD (01/09/2019 10:30 PM) [facility]
[2019-01-09 22:54] LABS: BASO % 0 % (0-3); EOS % 0 % (0-3); HEMATOCRIT 37.1 % (39.0-53.0); HEMOGLOBIN 12.4 g/dL (13.0-17.5); LYMPH # 1.2 x10^3/uL (1.0-4.8); LYMPH % 12 % (24-48); MEAN CORPUSCULAR HEMOGLOBIN 30 pg (25-35); MEAN CORPUSCULAR HGB CONC 34 g/dL (31-37); MEAN CORPUSCULAR VOLUME 91 fL (79-100); MONO # 1.4 x10^3/uL (0.0-1.1); MONO % 14 % (0-9); NEUT # 7.5 x10^3uL (1.8-7.7); NEUT % 74 % (31-73); PLATELET COUNT 141 x10^3/uL (140-400); RED BLOOD COUNT 4.08 x10^6/uL (4.30-5.70); RED CELL DISTRIBUTION WIDTH 15.4 % (11.5-14.5); WHITE BLOOD COUNT 10.2 x10^3/uL (4.0-11.0)
[2019-01-09 23:04] LABS: CREATININE 0.8 mg/dL (0.7-1.3); GFR 97.3; POTASSIUM 3.6 mmol/L (3.5-5.1)
[2019-01-09 23:06] LABS: PROTHROMBIN TIME PATIENT 14.8 SEC (11.7-14.0)
[2019-01-09 23:10] LABS: ALBUMIN 3.3 g/dL (3.4-5.0); ALBUMIN/GLOBULIN RATIO 0.7 (1.0-1.7); TOTAL PROTEIN 7.8 g/dL (6.4-8.2)
--- NOTE | 2019-01-09 23:10 | PDOC1 ---
History and Physical Date of Admission Date of Admission DATE: 01/09/19 TIME: 22:56 Identification/Chief Complaint Chief Complaint Left leg swelling History of Present Illness History of Present Illness 63 year old male with history of hypertension, prior ETOH abuse, prior hemorrhagic CVA, left upper extremity contracture, who presents to the ED today from a [facility] for DVT of the left lower extremity which was diagnosed this afternoon via ultrasound. Family states patient was supposed to be started on Xarelto. They state the medicine is not available at the fci and it could not come soon enough. Patient denies any shortness of breath. Denies any chest pain. Past Medical History Cardiovascular: HTN Pulmonary: COPD CENTRAL NERVOUS SYSTEM: CVA GI: No pertinent hx Heme/Onc: No pertinent hx Hepatobiliary: No pertinent hx Psych: No pertinent hx Rheumatologic: No pertinent hx Infectious disease: No pertinent hx Renal/: No pertinent hx Endocrine: No pertinent hx Past Surgical History Past Surgical History: Other Family History Family History: No Significant Social History ALCOHOL: other Current Problem List Problem List Problems Medical Problems: (1) Left leg DVT Status: Acute Current Medications Current Medications Active Scripts Active Reported Benazepril Hcl 40 Mg Tablet 1 Tab PO DAILY Amlodipine Besylate 5 Mg Tablet 5 Mg PO DAILY Allergies Allergies: Coded Allergies: No Known Drug Allergies (Unverified , 12/15/16) ROS Review of System Patient is mostly not verbally interactive, states he is cold and his left leg feels heavy General: YES: Chills, Fatigue, Malaise PSYCHOLOGICAL ROS: No: Anxiety, Behavioral Disorder, Concentration difficultie , Decreased libido, Depression, Disorientation, Hallucinations, Hostility, Irritablity, Memory difficulties, Mood Swings, Obsessive thoughts, Physical abuse, Sexual abuse, Sleep disturbances, Suicidal ideation, Other Eyes: No Blurry vision, No Decreased vision, No Double vision, No Dry eyes, No Excessive tearing, No Eye Pain, No Itchy Eyes, No Loss of vision, No Photophobia , No Scotomata, No Uses contacts, No Uses glasses, No Other HEENT: No: Heacaches, Visual Changes, Hearing change, Nasal congestion, Nasal discharge, Oral lesions, Sinus pain, Sore Throat, Epistaxis, Sneezing, Snoring, Tinnitus, Vertigo, Vocal changes, Other ALLERGY AND IMMUNOLOGY: No: Hives, Insect Bite Sensitivity, Itchy/Watery Eyes, Nasal Congestion, Post Nasal Drip, Seasonal Allergies, Other Hematological and Lymphatic: YES: Bleeding Problems, Blood Clots; No: Blood Transfusions, Brusing, Night Sweats, Pallor, Swollen Lymph Nodes, Other ENDOCRINE: No: Breast Changes, Galactorrhea, Hair Pattern Changes, Hot Flashes , Malaise/lethargy, Mood Swings, Palpitations, Polydipsia/polyuria, Skin Changes , Temperature Intolerance, Unexpected Weight Changes, Other Breast: No New/Changing Breast Lumps, No Nipple changes, No Nipple discharge, No Other Respiratory: YES: Cough; No: Hemoptysis, Orthopnea, Pleuritic Pain, Shortness of breath, SOB with excertion, Sputum Changes, Stridor, Tachypnea, Wheezing, Other Cardiovascular: No Chest Pain, No Palpitations, No Orthopnea, No Paroxysmal Noc. Dyspnea, No Edema, No Lt Headedness, No Other Gastrointestinal: No Nausea, No Vomiting, No Abdominal Pain, No Diarrhea, No Constipation, No Melena, No Hematochezia, No Other Genitourinary: No Dysuria, No Frequency, No Incontinence, No Hematuria, No Retention, No Discharge, No Urgency, No Pain, No Flank Pain, No Other, No , No , No , No , No , No , No Musculoskeletal: No Gait Disturbance, No Joint Pain, No Joint Stiffness, No Joint Swelling, No Muscle Pain, No Muscular Weakness, No Pain In:, No Swelling In:, No Other Neurological: No Behavorial Changes, No Bowel/Bladder ControlChng, No Confusion , No Dizziness, No Gait Disturbance, No Headaches, No Impaired Coord/balance, No Memory Loss, No Numbness/Tingling, No Seizures, No Speech Problems, No Tremors, No Visual Changes, No Weakness, No Other Skin: No Dry Skin, No Eczema, No Hair Changes, No Lumps, No Mole Changes, No Mottling, No Nail Changes, No Pruritus, No Rash, No Skin Lesion Changes, No Other, No Acne Physical Exam General: Alert, Cooperative, No acute distress HEENT: PERRLA, EOMI, Mucous membr. moist/pink, Other (Prior right craniotomy) Lungs: Clear to auscultation, Normal air movement Heart: S1S2, RRR Abdomen: Normal bowel sounds, Soft, No tenderness, No hepatosplenomegaly, No masses Rectal Exam: not examined Extremities: No clubbing, No cyanosis, Other (left leg very edematous and a bit red, pulses palpable. Left arm contracted) Neuro: Cranial nerves 3-12 NL, Other (Decreased strength on left side and decreased sensation, unable to walk) Vitals Vitals Vital Signs Date Time Temp Pulse Resp B/P (MAP) Pulse Ox O2 Delivery O2 Flow Rate FiO2 01/09/19 21:03 98.0 91 20 149/83 (105) 98 Room Air 98.[address] Head - Compared with the 2017 exam, focus of previously seen right basal ganglia hemorrhage has been replaced by large focus of encephalomalacia, also encephalomalacia extending to the right frontal cortical surface. There is residual right frontal region subdural collection which appears primarily to be more chronic, although some subtle internal hyperdensity possibly late subacute hemorrhagic component. This would be more accurately characterized with nonemergent MRI if clinically needed. There is increased third and lateral ventriculomegaly compared with previous exam, may be component of hydrocephalus given somewhat disproportionate size of ventricles comparing with the subarachnoid spaces. VTE Prophylaxis Ordered VTE Prophylaxis Devices: No VTE Pharmacological Prophylaxi: Yes Assessment/Plan Assessment/Plan A/P: Left leg swelling - confirmed DVT on doppler at [facility], unable to get xarelto. As he has a subdural measured greater than 12mm it would be prudent to start lovenox therapeutic tonight and transition to NOAC like eliquis tomorrow morning after consultation with neurosurgery Subdural hematoma - does appear chronic from 2 years ago. 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 FEN - General diet PPX - Lovenox pending lab results FULL CODE? Inpatient for acute DVT with prior subdural hematoma VALENTÍN CHARLES MD Jan 09, 2019 23:10
--- NOTE | 2019-01-09 23:14 | RAD ---
PORTABLE CHEST 1V History: Altered mental status Comparison: December 26, 2016 Findings: AP view of the chest is submitted. There is a lesser degree of inspiration for this exam, no new significant infiltrate, pleural fluid, pneumothorax identified. Heart size is probably unchanged allowing for lesser inspiration. Impression: 1. No acute radiographic abnormality is identified. Electronically signed by: Blaine Herrera MD (01/09/2019 11:10 PM) [facility]
[2019-01-09] MEDS ORDERED: MORPHINE SULFATE 4 MG/ML VIAL. IV PRN (23:45)
[2019-01-09] MEDS ORDERED: ONDANSETRON PF 4 MG/2 ML VIAL. IV PRN (23:45)
[2019-01-09 23:55] VITALS: BP 126/73
[2019-01-10 03:22] VITALS: BP 120/70
--- NOTE | 2019-01-10 06:50 | EKG ---
[facility] [address] [place] [address] Test Date: 2019-01-09 Test Time: 22:38:45 Pat Name: JOSE IGLESIAS Department: Room: 4 1 Gender: M Hull Inspector: : [id number] Requested By: CASSY RODAS Order Number: [id number] Reading MD: Timmy Shields MD Measurements Intervals [place] Rate: 81 P: -9 MO: 184 QRS: -10 QRSD: 80 T: 35 QT: 376 QTc: 437 Interpretive Statements SINUS RHYTHM CONSIDER RYNE/LATERAL ISCHEMIA Electronically Signed On 01-10-2019 11:23:52 IT NETWORK ARCHITECT by Timmy Shields MD
[2019-01-10 07:15] VITALS: BP 121/64
[2019-01-10 08:35] LABS: BASO % 0 % (0-3); EOS % 1 % (0-3); HEMATOCRIT 36.5 % (39.0-53.0); LYMPH # 1.5 x10^3/uL (1.0-4.8); LYMPH % 22 % (24-48); MEAN CORPUSCULAR HEMOGLOBIN 30 pg (25-35); MEAN CORPUSCULAR HGB CONC 33 g/dL (31-37); MEAN CORPUSCULAR VOLUME 92 fL (79-100); MONO % 15 % (0-9); NEUT # 4.1 x10^3uL (1.8-7.7); NEUT % 62 % (31-73); PLATELET COUNT 132 x10^3/uL (140-400); RED BLOOD COUNT 3.97 x10^6/uL (4.30-5.70); RED CELL DISTRIBUTION WIDTH 15.8 % (11.5-14.5); WHITE BLOOD COUNT 6.6 x10^3/uL (4.0-11.0)
[2019-01-10 08:54] LABS: CALCIUM 8.8 mg/dL (8.5-10.1); CREATININE 0.7 mg/dL (0.7-1.3); GFR 113.5; POTASSIUM 3.4 mmol/L (3.5-5.1)
[2019-01-10] MEDS ORDERED: MULT1TAB52 PO (10:53)
[2019-01-10] MEDS ORDERED: CHOL10003 PO (10:53)
[2019-01-10] MEDS ORDERED: SERT100T PO (10:53)
[2019-01-10] MEDS ORDERED: CARB15DR3 EACHEYE (11:06)
[2019-01-10] MEDS ORDERED: ACET325T9 PO (11:06)
[2019-01-10] MEDS ORDERED: DONE5TAB7 PO (11:06)
[2019-01-10] MEDS ORDERED: NYST15CR TP (11:06)
[2019-01-10] MEDS ORDERED: GABA-585 PO (11:06)
[2019-01-10] MEDS ORDERED: ATOR20TA58 PO (11:06)
[2019-01-10] MEDS ORDERED: BACL10TA PO (11:06)
[2019-01-10] MEDS ORDERED: CARB1TAB2 PO (11:06)
[2019-01-10] MEDS ORDERED: SENN-80 PO (11:06)
[2019-01-10 11:25] VITALS: BP 117/58
--- NOTE | 2019-01-10 11:38 | PDOC2 ---
CONSULT Date of Consult Date of Consult DATE: 01/10/19 TIME: 11:28 Reason for Consult Reason for Consult: Left leg DVT Referring Physician Referring Physician: Dr. Jung Source Source: Caregiver, Chart review, Patient History of Present Illness Reason for Visit: Pt is a pleasant 63 year old male with history of an intracerebral hemorrhage 2 years ago. The source was unknown, he was found down and unconscious. His reports he did tend to fall a lot. He has not had any bleeding problems since, however he does have residual left sided weakness due to this. he is nonambulatory, sits in a wheelchair often with assisted transfers. He resides at the [facility] across the street per , yesterday they noticed his left leg was swollen and obtained an US. This showed DVT in the left common femoral, superficial femoral and popliteal veins. He was reportedly going to start Xarelto however the facility did not carry this and he was sent to the hospital. He doesn't report any pain with this. Denies shortness of breath. He denies a history of clotting. He has had vein procedures for left leg varicose veins in the past. Surgical history significant for right knee and left ankle years ago. He was started on Lovenox 70mg bid at admission. The reports the patient does have a history of falling, most recently a couple weeks ago. Head CT yesterday showed: Compared with the 2017 exam, focus of previously seen right basal ganglia hemorrhage has been replaced by large focus of encephalomalacia, also encephalomalacia extending to the right frontal cortical surface. There is residual right frontal region subdural collection which appears primarily to be more chronic, although some subtle internal hyperdensity possibly late subacute hemorrhagic component. This would be more accurately characterized with nonemergent MRI if clinically needed. There is increased third and lateral ventriculomegaly compared with previous exam, may be component of hydrocephalus given somewhat disproportionate size of ventricles comparing with the subarachnoid spaces. Past Medical History Cardiovascular: HTN Pulmonary: COPD CENTRAL NERVOUS SYSTEM: CVA, Other (Intracerebral hemorrhage) GI: No pertinent hx Heme/Onc: No pertinent hx Hepatobiliary: No pertinent hx Psych: No pertinent hx Rheumatologic: No pertinent hx Infectious disease: No pertinent hx Renal/: No pertinent hx Endocrine: No pertinent hx Past Surgical History Past Surgical History: Other (right knee surgery, left ankle surgery) Family History Family History: No Significant Social History ALCOHOL: other Lives: with Family Domestic Violence: Neg Current Problem List Problem List Problems Medical Problems: (1) Left leg DVT Status: Acute Current Medications Current Medications Current Medications Ondansetron HCl (Zofran) 4 mg PRN Q8HRS PRN IV NAUSEA/VOMITING; Start 01/09/19 at 23:45; Stop 01/10/19 at 23:44 Morphine Sulfate (Morphine Sulfate) 4 mg PRN Q2HR PRN IV PAIN; Start 01/09/19 at 23:45; Stop 01/10/19 at 23:44 Enoxaparin Sodium (Lovenox 80mg Syringe) 70 mg Q12HR SQ ; Start 01/10/19 at 09:00 ; Stop 01/10/19 at 09:00; Status DC Enoxaparin Sodium (Lovenox 80mg Syringe) 70 mg Q12HR SQ Last administered on 01/10/19at 09:27; Start 01/10/19 at 01:00 Active Scripts Active Reported Tylenol (Acetaminophen) 325 Mg Tablet 2 Tab PO Q6HRS Gabapentin (Gabapentin) 100 Mg Capsule 100 Mg PO TID Refresh Optive Eye Drops (Carboxymethylcellulos/Glycerin) 15 Ml Drops 1 Drop EACHEYE TID Nystatin 15 Gm Cream..g. 1 Anisa TP TID Sinemet 25-100 Mg Tablet (Carbidopa/Levodopa) 1 Each Tablet 1 Tab PO TID Baclofen 10 Mg Tablet 10 Mg PO QID Senna (Sennosides) 8.6 Mg Tablet 8.6 Mg PO HS Atorvastatin Calcium 20 Mg Tablet 20 Mg PO HS PRN Donepezil Hcl 5 Mg Tablet 5 Mg PO HS Vitamin D3 (Cholecalciferol (Vitamin D3)) 1,000 Unit Tablet 2 Tab PO DAILY Zoloft (Sertraline Hcl) 100 Mg Tablet 1 Tab PO DAILY Multivitamins (Multivitamin) 1 Each Tablet 1 Tab PO DAILY Benazepril Hcl 40 Mg Tablet 1 Tab PO DAILY Amlodipine Besylate 5 Mg Tablet 5 Mg PO DAILY Allergies Allergies: Coded Allergies: No Known Drug Allergies (Unverified , 12/15/16) ROS General: No: Chills, Fatigue HEENT: No: Heacaches, Visual Changes Hematological and Lymphatic: YES: Bleeding Problems, Blood Clots; No: Brusing Respiratory: No: Cough, Hemoptysis, Shortness of breath Cardiovascular: No Chest Pain, No Palpitations Neurological: No Confusion, No Dizziness Skin: Yes Skin Lesion Changes, Yes Other (edema) Physical Exam General: Alert, Oriented X3, Cooperative HEENT: Atraumatic Lungs: Normal air movement Heart: Regular rate Abdomen: Soft, No tenderness Extremities: Other (Significant left lower extremity edema with diffuse erythema up to left groin. Right lower extremity normal, without calf tenderness. Normal right pulses. Cannot appreciate left pedal pulses due to swelling, but strong doppler signals. The patient has a mild flexion contracture to left knee as well as left arm. ) Psych/Mental Status: Mental status NL, Mood NL Vitals VITALS Vital Signs Date Time Temp Pulse Resp B/P (MAP) Pulse Ox O2 Delivery O2 Flow Rate FiO2 01/10/19 08:00 Room Air 01/10/19 07:15 98.8 71 12 121/64 (83) 90 98.8 Labs Labs Laboratory Tests Test 01/09/19 22:40 01/09/19 22:50 01/10/19 07:47 White Blood Count 10.2 x10^3/uL (4.0-11.0) 6.6 x10^3/uL (4.0-11.0) Red Blood Count 4.08 x10^6/uL (4.30-5.70) 3.97 x10^6/uL (4.30-5.70) Hemoglobin 12.4 g/dL (13.0-17.5) 12.0 g/dL (13.0-17.5) Hematocrit 37.1 % (39.0-53.0) 36.5 % (39.0-53.0) Mean Corpuscular Volume 91 fL (79-100) 92 fL (79-100) Mean Corpuscular Hemoglobin 30 pg (25-35) 30 pg (25-35) Mean Corpuscular Hemoglobin Concent 34 g/dL (31-37) 33 g/dL (31-37) Red Cell Distribution Width 15.4 % (11.5-14.5) 15.8 % (11.5-14.5) Platelet Count 141 x10^3/uL (140-400) 132 x10^3/uL (140-400) Neutrophils (%) (Auto) 74 % (31-73) 62 % (31-73) Lymphocytes (%) (Auto) 12 % (24-48) 22 % (24-48) Monocytes (%) (Auto) 14 % (0-9) 15 % (0-9) Eosinophils (%) (Auto) 0 % (0-3) 1 % (0-3) Basophils (%) (Auto) 0 % (0-3) 0 % (0-3) Neutrophils # (Auto) 7.5 x10^3uL (1.8-7.7) 4.1 x10^3uL (1.8-7.7) Lymphocytes # (Auto) 1.2 x10^3/uL (1.0-4.8) 1.5 x10^3/uL (1.0-4.8) Monocytes # (Auto) 1.4 x10^3/uL (0.0-1.1) 1.0 x10^3/uL (0.0-1.1) Eosinophils # (Auto) 0.0 x10^3/uL (0.0-0.7) 0.0 x10^3/uL (0.0-0.7) Basophils # (Auto) 0.0 x10^3/uL (0.0-0.2) 0.0 x10^3/uL (0.0-0.2) Prothrombin Time 14.8 SEC (11.7-14.0) Prothromb Time International Ratio 1.2 (0.8-1.1) Activated Partial Thromboplast Time 39 SEC (24-38) Sodium Level 138 mmol/L (136-145) 141 mmol/L (136-145) Potassium Level 3.6 mmol/L (3.5-5.1) 3.4 mmol/L (3.5-5.1) Chloride Level 99 mmol/L (98-107) 102 mmol/L (98-107) Carbon Dioxide Level 29 mmol/L (21-32) 29 mmol/L (21-32) Anion Gap 10 (6-14) 10 (6-14) Blood Urea Nitrogen 30 mg/dL (8-26) 28 mg/dL (8-26) Creatinine 0.8 mg/dL (0.7-1.3) 0.7 mg/dL (0.7-1.3) Estimated GFR (Cockcroft-Gault) 97.3 113.5 BUN/Creatinine Ratio 38 (6-20) Glucose Level 133 mg/dL (70-99) 113 mg/dL (70-99) Calcium Level 9.0 mg/dL (8.5-10.1) 8.8 mg/dL (8.5-10.1) Total Bilirubin 1.0 mg/dL (0.2-1.0) Aspartate Amino Transf (AST/SGOT) 10 U/L (15-37) Alanine Aminotransferase (ALT/SGPT) 13 U/L (16-63) Alkaline Phosphatase 42 U/L (46-116) Troponin I Quantitative < 0.017 ng/mL (0.000-0.055) YX-Ekr-T-Type Natriuretic Peptide 320 pg/mL (0-124) Total Protein 7.8 g/dL (6.4-8.2) Albumin 3.3 g/dL (3.4-5.0) Albumin/Globulin Ratio 0.7 (1.0-1.7) Thyroid Stimulating Hormone (TSH) 2.899 uIU/mL (0.358-3.74) Magnesium Level 1.7 mg/dL (1.8-2.4) Laboratory Tests Test 01/09/19 22:40 01/09/19 22:50 01/10/19 07:47 White Blood Count 10.2 x10^3/uL (4.0-11.0) 6.6 x10^3/uL (4.0-11.0) Red Blood Count 4.08 x10^6/uL (4.30-5.70) 3.97 x10^6/uL (4.30-5.70) Hemoglobin 12.4 g/dL (13.0-17.5) 12.0 g/dL (13.0-17.5) Hematocrit 37.1 % (39.0-53.0) 36.5 % (39.0-53.0) Mean Corpuscular Volume 91 fL (79-100) 92 fL (79-100) Mean Corpuscular Hemoglobin 30 pg (25-35) 30 pg (25-35) Mean Corpuscular Hemoglobin Concent 34 g/dL (31-37) 33 g/dL (31-37) Red Cell Distribution Width 15.4 % (11.5-14.5) 15.8 % (11.5-14.5) Platelet Count 141 x10^3/uL (140-400) 132 x10^3/uL (140-400) Neutrophils (%) (Auto) 74 % (31-73) 62 % (31-73) Lymphocytes (%) (Auto) 12 % (24-48) 22 % (24-48) Monocytes (%) (Auto) 14 % (0-9) 15 % (0-9) Eosinophils (%) (Auto) 0 % (0-3) 1 % (0-3) Basophils (%) (Auto) 0 % (0-3) 0 % (0-3) Neutrophils # (Auto) 7.5 x10^3uL (1.8-7.7) 4.1 x10^3uL (1.8-7.7) Lymphocytes # (Auto) 1.2 x10^3/uL (1.0-4.8) 1.5 x10^3/uL (1.0-4.8) Monocytes # (Auto) 1.4 x10^3/uL (0.0-1.1) 1.0 x10^3/uL (0.0-1.1) Eosinophils # (Auto) 0.0 x10^3/uL (0.0-0.7) 0.0 x10^3/uL (0.0-0.7) Basophils # (Auto) 0.0 x10^3/uL (0.0-0.2) 0.0 x10^3/uL (0.0-0.2) Prothrombin Time 14.8 SEC (11.7-14.0) Prothromb Time International Ratio 1.2 (0.8-1.1) Activated Partial Thromboplast Time 39 SEC (24-38) Sodium Level 138 mmol/L (136-145) 141 mmol/L (136-145) Potassium Level 3.6 mmol/L (3.5-5.1) 3.4 mmol/L (3.5-5.1) Chloride Level 99 mmol/L (98-107) 102 mmol/L (98-107) Carbon Dioxide Level 29 mmol/L (21-32) 29 mmol/L (21-32) Anion Gap 10 (6-14) 10 (6-14) Blood Urea Nitrogen 30 mg/dL (8-26) 28 mg/dL (8-26) Creatinine 0.8 mg/dL (0.7-1.3) 0.7 mg/dL (0.7-1.3) Estimated GFR (Cockcroft-Gault) 97.3 113.5 BUN/Creatinine Ratio 38 (6-20) Glucose Level 133 mg/dL (70-99) 113 mg/dL (70-99) Calcium Level 9.0 mg/dL (8.5-10.1) 8.8 mg/dL (8.5-10.1) Total Bilirubin 1.0 mg/dL (0.2-1.0) Aspartate Amino Transf (AST/SGOT) 10 U/L (15-37) Alanine Aminotransferase (ALT/SGPT) 13 U/L (16-63) Alkaline Phosphatase 42 U/L (46-116) Troponin I Quantitative < 0.017 ng/mL (0.000-0.055) NX-Tal-A-Type Natriuretic Peptide 320 pg/mL (0-124) Total Protein 7.8 g/dL (6.4-8.2) Albumin 3.3 g/dL (3.4-5.0) Albumin/Globulin Ratio 0.7 (1.0-1.7) Thyroid Stimulating Hormone (TSH) 2.899 uIU/mL (0.358-3.74) Magnesium Level 1.7 mg/dL (1.8-2.4) Assessment/Plan Assessment/Plan Nonambulatory pt with history of intracranial bleed with DVT in left common and superficial femoral veins as well as popliteal veins. He is without symptoms of PE. Recommend continuing to monitor O2 sat. He has been started on Lovenox. With the patients history risks/benefits of therapy need to be carefully weighed. The patient is not a candidate for lytic therapy with hx of cranial hemorrhage. Although he does not have phlegmasia cerulea dolens, his leg is significantly swollen and moderately erythematous. His arterial circulation is intact. If deemed appropriate by neurosurgery, we recommend anticoagulation therapy with compression therapy, will get thigh high compression for patient. He is high risk for falls as well. With the patient being nonambulatory he may be a good candidate for IVC filter, especially if anticoagulation is not tolerated. I discussed the potential treatment options, risks/benefits with family and pt who exhibited understanding and agreed. All their questions were answered to satisfaction. Vascular surgeon will also see the patient to confirm recommendations. SEAN GABRIEL Jan 10, 2019 11:38
--- NOTE | 2019-01-10 12:58 | NUR ---
SW following pt for anticipated dc needs. Chart reviewed. [facility] confirmed with [facility] pt is LTC resident at facility. Saundra also confirmed plan of return upon dc. Will continue to follow.
[2019-01-10] MEDS: CARBIDOPA/LEVODOPA 25/100MG TABLET PO SCH ×2 (13:43→22:25)
[2019-01-10] MEDS: SERTRALINE 50 MG TABLET. PO SCH (13:43)
[2019-01-10] MEDS: GABAPENTIN 100 MG CAPSULE. PO SCH ×2 (13:43→22:13)
[2019-01-10] MEDS: MULTIVITAMIN with MINERAL TABLET. PO SCH (13:43)
[2019-01-10] MEDS: amLODIPine BESYLATE 5 MG TABLET PO SCH (13:44)
[2019-01-10] MEDS: CHOLECALCIFEROL (VITAMIN D3) 1,000 UNIT TABLET PO SCH (13:47)
--- NOTE | 2019-01-10 14:52 | PDOC2 ---
NEUROLOGY CONSULT Date of Admission Date of Admission DATE: 01/10/19 TIME: 14:41 Reason for Consult Reason for Consult: Altered mental status, history of hemorrhagic stroke Referring Physician Referring Physician: Dr. Jung Source Source: Caregiver, Chart review, Patient History of Present Illness History of Present Illness The patient is a 63-year-old right-handed male who had a right hemisphere hemorrhagic stroke 2 years ago requiring hematoma evacuation. He was at [facility], [facility], other [facility], and most recently has been at [facility]. He is admitted for a left leg DVT. He has had some altered mental status for the past 2 or 3 weeks. He was already at a low level after the hemorrhage, wheelchair bound with left arm contracture and dementia features. He also developed a Parkinsonian syndrome, presumably vascular, and has been treated with Sinemet. He has a lot of spasms of his leg especially when it was infected with MRSA a few years ago. He also has pain in the left arm when it is moved. There is no history of seizures. Past Medical History Cardiovascular: HTN, Hyperlipidemia Pulmonary: COPD CENTRAL NERVOUS SYSTEM: CVA (right hemispheric hemorrhage status-post evacuation), Dementia (post stroke), Other (vascular Parkinson's) Psych: Anxiety, Addictions, Depression Infectious disease: Other (MRSA) Past Surgical History Past Surgical History: Other (craniotomy) Family History Family History: CAD Social History Social History , was a heavy user of alcohol and tobacco prior to the hemorrhagic stroke , now a residential resident Current Medications Current Medications Current Medications Ondansetron HCl (Zofran) 4 mg PRN Q8HRS PRN IV NAUSEA/VOMITING; Start 01/09/19 at 23:45; Stop 01/10/19 at 23:44 Morphine Sulfate (Morphine Sulfate) 4 mg PRN Q2HR PRN IV PAIN; Start 01/09/19 at 23:45; Stop 01/10/19 at 23:44 Enoxaparin Sodium (Lovenox 80mg Syringe) 70 mg Q12HR SQ ; Start 01/10/19 at 09:00 ; Stop 01/10/19 at 09:00; Status DC Enoxaparin Sodium (Lovenox 80mg Syringe) 70 mg Q12HR SQ Last administered on 01/10/19at 09:27; Start 01/10/19 at 01:00; Stop 01/10/19 at 13:44; Status DC Acetaminophen (Tylenol) 650 mg Q6HRS PO ; Start 01/10/19 at 18:00 Amlodipine Besylate (Norvasc) 5 mg DAILY PO Last administered on 01/10/19at 13:44 ; Start 01/10/19 at 14:00 Atorvastatin Calcium (Lipitor) 20 mg QHS PO ; Start 01/10/19 at 21:00 Baclofen (Lioresal) 10 mg QID PO ; Start 01/10/19 at 17:00 Carbidopa/Levodopa (Sinemet 25/100) 1 tab TID PO Last administered on 01/10/19 13:43; Start 01/10/19 at 14:00 Vitamin D (Vitamin D3) 2,000 unit DAILY PO Last administered on 01/10/19 13:47 ; Start 01/10/19 at 14:00 Gabapentin (Neurontin) 100 mg TID PO Last administered on 01/10/19at 13:43; Start 01/10/19 at 14:00 Artificial Tears (Artificial Tears) 1 drop TID OU ; Start 01/10/19 at 14:00 Donepezil HCl (Aricept) 5 mg QHS PO ; Start 01/10/19 at 21:00 Multivitamins (Thera M Plus) 1 tab DAILY PO Last administered on 01/10/19at 13:43 ; Start 01/10/19 at 14:00 Nystatin (Mycostatin) 1 anisa TID TP ; Start 01/10/19 at 14:00 Sennosides (Senna) 8.6 mg QHS PO ; Start 01/10/19 at 21:00 Sertraline HCl (Zoloft) 100 mg DAILY PO Last administered on 01/10/19at 13:43; Start 01/10/19 at 14:00 Enoxaparin Sodium (Lovenox 80mg Syringe) 80 mg Q12HR SQ ; Start 01/10/19 at 21:00 Active Scripts Active Reported Tylenol (Acetaminophen) 325 Mg Tablet 2 Tab PO Q6HRS Gabapentin (Gabapentin) 100 Mg Capsule 100 Mg PO TID Refresh Optive Eye Drops (Carboxymethylcellulos/Glycerin) 15 Ml Drops 1 Drop EACHEYE TID Nystatin 15 Gm Cream..g. 1 Anisa TP TID Sinemet 25-100 Mg Tablet (Carbidopa/Levodopa) 1 Each Tablet 1 Tab PO TID Baclofen 10 Mg Tablet 10 Mg PO QID Senna (Sennosides) 8.6 Mg Tablet 8.6 Mg PO HS Atorvastatin Calcium 20 Mg Tablet 20 Mg PO HS PRN Donepezil Hcl 5 Mg Tablet 5 Mg PO HS Vitamin D3 (Cholecalciferol (Vitamin D3)) 1,000 Unit Tablet 2 Tab PO DAILY Zoloft (Sertraline Hcl) 100 Mg Tablet 1 Tab PO DAILY Multivitamins (Multivitamin) 1 Each Tablet 1 Tab PO DAILY Benazepril Hcl 40 Mg Tablet 1 Tab PO DAILY Amlodipine Besylate 5 Mg Tablet 5 Mg PO DAILY Allergies Allergies: Coded Allergies: No Known Drug Allergies (Unverified , 12/15/16) ROS Review of System Negative for fever, chills, weight loss, shortness of breath, chest pain, indigestion, hematochezia, melena, and dysuria. Full 14-point review of systems is negative. Physical Exam Physical Examination General: Well-developed, well-nourished white male in no acute distress HEENT: Normocephalic andatraumatic. Temporal arteriespulsatile and nontender. Neck: Supple without bruit, no meningismus Musculoskeletal: Stability:see neurologic. Gait exam:see neurologic. Tone:see neurologic. Strength:see neurologic.Left leg is edematous and erythematous Neurological: Mental Status:orientation, memory, attention span/concentration, language, fund of knowledge: He knows his name, not the date or location, language functions intact. Cranial Nerves:Pupils equal and reactive to light, extraocular movements areintact. There is a left field cut. Facial sensation is normal. There is left central facial weakness Vestibulo-ocular reflex is intact. Palate elevates and tongue protrudes in midline. All other cranial related problems are negative except as mentioned before.Reflexes:2+ and symmetric with flexor plantar response on right and silent on eft. Motor:5/5 strength on right, spastic left hemiplegia, 1/5 left arm, 3/5 left leg. Coordination:Finger-nose finger and [id number] testing are normal on right. Rapid alternating movements and fine finger movements are intact. Minimal occasional right hand rest tremor. Gait:Not tested. Sensory:Hyperpathia in left arm Vitals VITALS Vital Signs Date Time Temp Pulse Resp B/P (MAP) Pulse Ox O2 Delivery O2 Flow Rate FiO2 01/10/19 13:44 74 117/58 01/10/19 11:25 98.9 14 92 Room Air 98.9 Labs Labs Laboratory Tests Test 01/09/19 22:40 01/09/19 22:50 01/10/19 07:47 White Blood Count 10.2 x10^3/uL (4.0-11.0) 6.6 x10^3/uL (4.0-11.0) Red Blood Count 4.08 x10^6/uL (4.30-5.70) 3.97 x10^6/uL (4.30-5.70) Hemoglobin 12.4 g/dL (13.0-17.5) 12.0 g/dL (13.0-17.5) Hematocrit 37.1 % (39.0-53.0) 36.5 % (39.0-53.0) Mean Corpuscular Volume 91 fL (79-100) 92 fL (79-100) Mean Corpuscular Hemoglobin 30 pg (25-35) 30 pg (25-35) Mean Corpuscular Hemoglobin Concent 34 g/dL (31-37) 33 g/dL (31-37) Red Cell Distribution Width 15.4 % (11.5-14.5) 15.8 % (11.5-14.5) Platelet Count 141 x10^3/uL (140-400) 132 x10^3/uL (140-400) Neutrophils (%) (Auto) 74 % (31-73) 62 % (31-73) Lymphocytes (%) (Auto) 12 % (24-48) 22 % (24-48) Monocytes (%) (Auto) 14 % (0-9) 15 % (0-9) Eosinophils (%) (Auto) 0 % (0-3) 1 % (0-3) Basophils (%) (Auto) 0 % (0-3) 0 % (0-3) Neutrophils # (Auto) 7.5 x10^3uL (1.8-7.7) 4.1 x10^3uL (1.8-7.7) Lymphocytes # (Auto) 1.2 x10^3/uL (1.0-4.8) 1.5 x10^3/uL (1.0-4.8) Monocytes # (Auto) 1.4 x10^3/uL (0.0-1.1) 1.0 x10^3/uL (0.0-1.1) Eosinophils # (Auto) 0.0 x10^3/uL (0.0-0.7) 0.0 x10^3/uL (0.0-0.7) Basophils # (Auto) 0.0 x10^3/uL (0.0-0.2) 0.0 x10^3/uL (0.0-0.2) Prothrombin Time 14.8 SEC (11.7-14.0) Prothromb Time International Ratio 1.2 (0.8-1.1) Activated Partial Thromboplast Time 39 SEC (24-38) Sodium Level 138 mmol/L (136-145) 141 mmol/L (136-145) Potassium Level 3.6 mmol/L (3.5-5.1) 3.4 mmol/L (3.5-5.1) Chloride Level 99 mmol/L (98-107) 102 mmol/L (98-107) Carbon Dioxide Level 29 mmol/L (21-32) 29 mmol/L (21-32) Anion Gap 10 (6-14) 10 (6-14) Blood Urea Nitrogen 30 mg/dL (8-26) 28 mg/dL (8-26) Creatinine 0.8 mg/dL (0.7-1.3) 0.7 mg/dL (0.7-1.3) Estimated GFR (Cockcroft-Gault) 97.3 113.5 BUN/Creatinine Ratio 38 (6-20) Glucose Level 133 mg/dL (70-99) 113 mg/dL (70-99) Calcium Level 9.0 mg/dL (8.5-10.1) 8.8 mg/dL (8.5-10.1) Total Bilirubin 1.0 mg/dL (0.2-1.0) Aspartate Amino Transf (AST/SGOT) 10 U/L (15-37) Alanine Aminotransferase (ALT/SGPT) 13 U/L (16-63) Alkaline Phosphatase 42 U/L (46-116) Troponin I Quantitative < 0.017 ng/mL (0.000-0.055) KF-Geq-N-Type Natriuretic Peptide 320 pg/mL (0-124) Total Protein 7.8 g/dL (6.4-8.2) Albumin 3.3 g/dL (3.4-5.0) Albumin/Globulin Ratio 0.7 (1.0-1.7) Thyroid Stimulating Hormone (TSH) 2.899 uIU/mL (0.358-3.74) Magnesium Level 1.7 mg/dL (1.8-2.4) Laboratory Tests Test 01/09/19 22:40 01/09/19 22:50 01/10/19 07:47 White Blood Count 10.2 x10^3/uL (4.0-11.0) 6.6 x10^3/uL (4.0-11.0) Red Blood Count 4.08 x10^6/uL (4.30-5.70) 3.97 x10^6/uL (4.30-5.70) Hemoglobin 12.4 g/dL (13.0-17.5) 12.0 g/dL (13.0-17.5) Hematocrit 37.1 % (39.0-53.0) 36.5 % (39.0-53.0) Mean Corpuscular Volume 91 fL (79-100) 92 fL (79-100) Mean Corpuscular Hemoglobin 30 pg (25-35) 30 pg (25-35) Mean Corpuscular Hemoglobin Concent 34 g/dL (31-37) 33 g/dL (31-37) Red Cell Distribution Width 15.4 % (11.5-14.5) 15.8 % (11.5-14.5) Platelet Count 141 x10^3/uL (140-400) 132 x10^3/uL (140-400) Neutrophils (%) (Auto) 74 % (31-73) 62 % (31-73) Lymphocytes (%) (Auto) 12 % (24-48) 22 % (24-48) Monocytes (%) (Auto) 14 % (0-9) 15 % (0-9) Eosinophils (%) (Auto) 0 % (0-3) 1 % (0-3) Basophils (%) (Auto) 0 % (0-3) 0 % (0-3) Neutrophils # (Auto) 7.5 x10^3uL (1.8-7.7) 4.1 x10^3uL (1.8-7.7) Lymphocytes # (Auto) 1.2 x10^3/uL (1.0-4.8) 1.5 x10^3/uL (1.0-4.8) Monocytes # (Auto) 1.4 x10^3/uL (0.0-1.1) 1.0 x10^3/uL (0.0-1.1) Eosinophils # (Auto) 0.0 x10^3/uL (0.0-0.7) 0.0 x10^3/uL (0.0-0.7) Basophils # (Auto) 0.0 x10^3/uL (0.0-0.2) 0.0 x10^3/uL (0.0-0.2) Prothrombin Time 14.8 SEC (11.7-14.0) Prothromb Time International Ratio 1.2 (0.8-1.1) Activated Partial Thromboplast Time 39 SEC (24-38) Sodium Level 138 mmol/L (136-145) 141 mmol/L (136-145) Potassium Level 3.6 mmol/L (3.5-5.1) 3.4 mmol/L (3.5-5.1) Chloride Level 99 mmol/L (98-107) 102 mmol/L (98-107) Carbon Dioxide Level 29 mmol/L (21-32) 29 mmol/L (21-32) Anion Gap 10 (6-14) 10 (6-14) Blood Urea Nitrogen 30 mg/dL (8-26) 28 mg/dL (8-26) Creatinine 0.8 mg/dL (0.7-1.3) 0.7 mg/dL (0.7-1.3) Estimated GFR (Cockcroft-Gault) 97.3 113.5 BUN/Creatinine Ratio 38 (6-20) Glucose Level 133 mg/dL (70-99) 113 mg/dL (70-99) Calcium Level 9.0 mg/dL (8.5-10.1) 8.8 mg/dL (8.5-10.1) Total Bilirubin 1.0 mg/dL (0.2-1.0) Aspartate Amino Transf (AST/SGOT) 10 U/L (15-37) Alanine Aminotransferase (ALT/SGPT) 13 U/L (16-63) Alkaline Phosphatase 42 U/L (46-116) Troponin I Quantitative < 0.017 ng/mL (0.000-0.055) MH-Ewc-Q-Type Natriuretic Peptide 320 pg/mL (0-124) Total Protein 7.8 g/dL (6.4-8.2) Albumin 3.3 g/dL (3.4-5.0) Albumin/Globulin Ratio 0.7 (1.0-1.7) Thyroid Stimulating Hormone (TSH) 2.899 uIU/mL (0.358-3.74) Magnesium Level 1.7 mg/dL (1.8-2.4) Images Images CT head: No acute hyperdense intracranial hemorrhage is identified. Previously seen right basal ganglia hemorrhage has been replaced by area of encephalomalacia. There is also encephalomalacia with cortical involvement of the right frontal lobe as seen previously. Previously seen intraventricular hemorrhage is no longer visualized. There is increased moderate to severe third and lateral ventriculomegaly, fourth ventricle also somewhat more dilated than previously. There is no midline shift. There is residual right frontal subdural collection about 1.2 cm greatest thickness, subtle slightly mixed density characteristics although mostly hypodense, not significantly hyperdense. There has been right frontal parietal craniotomy. Visualized paranasal sinuses are aerated. Mastoid air cells are aerated. Impression: 1. Compared with the 2017 exam, focus of previously seen right basal ganglia hemorrhage has been replaced by large focus of encephalomalacia, also encephalomalacia extending to the right frontal cortical surface. There is residual right frontal region subdural collection which appears primarily to be more chronic, although some subtle internal hyperdensity possibly late subacute hemorrhagic component. This would be more accurately characterized with nonemergent MRI if clinically needed. There is increased third and lateral ventriculomegaly compared with previous exam, may be component of hydrocephalus given somewhat disproportionate size of ventricles comparing with the subarachnoid spaces. Assessment/Plan Assessment/Plan Impression: Right basal ganglia hemorrhage in 2017, now with large focus of encephalomalacia extending to the right frontal cortical surface and residual chronic right frontal region subdural collection Post stroke dementia and Parkinson syndrome, may be worse with the DVT and there may also be infection in the left leg. I also wonder about the role of medication such as Sinemet or gabapentin that could lower his mental status. Recommendations: Await brain MRI Infectious disease consult if only to assuage the family's fears of infection I will consider medication holiday from possible offending medications but holding off for now. He is bright and alert, I see no need for electroencephalogram or lumbar puncture I fully discussed with the patient's and daughter. Thank you for letting me help with the patient's care. DEVI SERRANO MD Jan 10, 2019 14:52
[2019-01-10 15:20] VITALS: BP 117/71
--- NOTE | 2019-01-10 15:20 | NUR ---
Wound Care Attempted to see pt for wound consultation. Pt is off unit for MRI, will f/u tomorrow.
--- NOTE | 2019-01-10 15:39 | PDOC ---
PROGRESS NOTES Chief Complaint Chief Complaint Left leg swelling - confirmed DVT on doppler at [facility], unable to get xarelto. As he has a subdural measured greater than 12mm it would be prudent to start lovenox therapeutic tonight and transition to NOAC like eliquis tomorrow morning after consultation with neurosurgery Subdural hematoma - does appear chronic from 2 years ago. 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 FEN - General diet PPX - Lovenox pending lab results FULL CODE? Inpatient for acute DVT with prior subdural hematoma History of Present Illness History of Present Illness Patient with no complaints during my visit. no acute events reported overnight, patient wanting to have something to eat. Patient will be seen by vascular telecommunications consultant, tiffanie of care discussed in detail. Vitals Vitals Vital Signs Date Time Temp Pulse Resp B/P (MAP) Pulse Ox O2 Delivery O2 Flow Rate FiO2 01/10/19 13:44 74 117/58 01/10/19 11:25 98.9 14 92 Room Air 98.9 Physical Exam General: Alert, Oriented X3, Cooperative Heart: Regular rate Lungs: Clear Abdomen: Soft, No tenderness Extremities: Other (Significant left lower extremity edema with diffuse erythema up to left groin. Right lower extremity normal, without calf tenderness. Normal right pulses. Cannot appreciate left pedal pulses due to swelling, but strong doppler signals. The patient has a mild flexion contracture to left knee as well as left arm. ) Labs LABS Laboratory Tests Test 01/09/19 22:40 01/09/19 22:50 01/10/19 07:47 White Blood Count 10.2 x10^3/uL (4.0-11.0) 6.6 x10^3/uL (4.0-11.0) Red Blood Count 4.08 x10^6/uL (4.30-5.70) 3.97 x10^6/uL (4.30-5.70) Hemoglobin 12.4 g/dL (13.0-17.5) 12.0 g/dL (13.0-17.5) Hematocrit 37.1 % (39.0-53.0) 36.5 % (39.0-53.0) Mean Corpuscular Volume 91 fL (79-100) 92 fL (79-100) Mean Corpuscular Hemoglobin 30 pg (25-35) 30 pg (25-35) Mean Corpuscular Hemoglobin Concent 34 g/dL (31-37) 33 g/dL (31-37) Red Cell Distribution Width 15.4 % (11.5-14.5) 15.8 % (11.5-14.5) Platelet Count 141 x10^3/uL (140-400) 132 x10^3/uL (140-400) Neutrophils (%) (Auto) 74 % (31-73) 62 % (31-73) Lymphocytes (%) (Auto) 12 % (24-48) 22 % (24-48) Monocytes (%) (Auto) 14 % (0-9) 15 % (0-9) Eosinophils (%) (Auto) 0 % (0-3) 1 % (0-3) Basophils (%) (Auto) 0 % (0-3) 0 % (0-3) Neutrophils # (Auto) 7.5 x10^3uL (1.8-7.7) 4.1 x10^3uL (1.8-7.7) Lymphocytes # (Auto) 1.2 x10^3/uL (1.0-4.8) 1.5 x10^3/uL (1.0-4.8) Monocytes # (Auto) 1.4 x10^3/uL (0.0-1.1) 1.0 x10^3/uL (0.0-1.1) Eosinophils # (Auto) 0.0 x10^3/uL (0.0-0.7) 0.0 x10^3/uL (0.0-0.7) Basophils # (Auto) 0.0 x10^3/uL (0.0-0.2) 0.0 x10^3/uL (0.0-0.2) Prothrombin Time 14.8 SEC (11.7-14.0) Prothromb Time International Ratio 1.2 (0.8-1.1) Activated Partial Thromboplast Time 39 SEC (24-38) Sodium Level 138 mmol/L (136-145) 141 mmol/L (136-145) Potassium Level 3.6 mmol/L (3.5-5.1) 3.4 mmol/L (3.5-5.1) Chloride Level 99 mmol/L (98-107) 102 mmol/L (98-107) Carbon Dioxide Level 29 mmol/L (21-32) 29 mmol/L (21-32) Anion Gap 10 (6-14) 10 (6-14) Blood Urea Nitrogen 30 mg/dL (8-26) 28 mg/dL (8-26) Creatinine 0.8 mg/dL (0.7-1.3) 0.7 mg/dL (0.7-1.3) Estimated GFR (Cockcroft-Gault) 97.3 113.5 BUN/Creatinine Ratio 38 (6-20) Glucose Level 133 mg/dL (70-99) 113 mg/dL (70-99) Calcium Level 9.0 mg/dL (8.5-10.1) 8.8 mg/dL (8.5-10.1) Total Bilirubin 1.0 mg/dL (0.2-1.0) Aspartate Amino Transf (AST/SGOT) 10 U/L (15-37) Alanine Aminotransferase (ALT/SGPT) 13 U/L (16-63) Alkaline Phosphatase 42 U/L (46-116) Troponin I Quantitative < 0.017 ng/mL (0.000-0.055) GP-Pxw-F-Type Natriuretic Peptide 320 pg/mL (0-124) Total Protein 7.8 g/dL (6.4-8.2) Albumin 3.3 g/dL (3.4-5.0) Albumin/Globulin Ratio 0.7 (1.0-1.7) Thyroid Stimulating Hormone (TSH) 2.899 uIU/mL (0.358-3.74) Magnesium Level 1.7 mg/dL (1.8-2.4) Review of Systems Review of Systems Pertinent as per hpi otherwise 10 point review of system is negative Assessment and Plan Assessmemt and Plan Problems Medical Problems: (1) Left leg DVT Status: Acute Comment Review of Relevant I have reviewed the following items jose alfredo (where applicable) has been applied. Labs Laboratory Tests Test 01/09/19 22:40 01/09/19 22:50 01/10/19 07:47 White Blood Count 10.2 x10^3/uL (4.0-11.0) 6.6 x10^3/uL (4.0-11.0) Red Blood Count 4.08 x10^6/uL (4.30-5.70) 3.97 x10^6/uL (4.30-5.70) Hemoglobin 12.4 g/dL (13.0-17.5) 12.0 g/dL (13.0-17.5) Hematocrit 37.1 % (39.0-53.0) 36.5 % (39.0-53.0) Mean Corpuscular Volume 91 fL (79-100) 92 fL (79-100) Mean Corpuscular Hemoglobin 30 pg (25-35) 30 pg (25-35) Mean Corpuscular Hemoglobin Concent 34 g/dL (31-37) 33 g/dL (31-37) Red Cell Distribution Width 15.4 % (11.5-14.5) 15.8 % (11.5-14.5) Platelet Count 141 x10^3/uL (140-400) 132 x10^3/uL (140-400) Neutrophils (%) (Auto) 74 % (31-73) 62 % (31-73) Lymphocytes (%) (Auto) 12 % (24-48) 22 % (24-48) Monocytes (%) (Auto) 14 % (0-9) 15 % (0-9) Eosinophils (%) (Auto) 0 % (0-3) 1 % (0-3) Basophils (%) (Auto) 0 % (0-3) 0 % (0-3) Neutrophils # (Auto) 7.5 x10^3uL (1.8-7.7) 4.1 x10^3uL (1.8-7.7) Lymphocytes # (Auto) 1.2 x10^3/uL (1.0-4.8) 1.5 x10^3/uL (1.0-4.8) Monocytes # (Auto) 1.4 x10^3/uL (0.0-1.1) 1.0 x10^3/uL (0.0-1.1) Eosinophils # (Auto) 0.0 x10^3/uL (0.0-0.7) 0.0 x10^3/uL (0.0-0.7) Basophils # (Auto) 0.0 x10^3/uL (0.0-0.2) 0.0 x10^3/uL (0.0-0.2) Prothrombin Time 14.8 SEC (11.7-14.0) Prothromb Time International Ratio 1.2 (0.8-1.1) Activated Partial Thromboplast Time 39 SEC (24-38) Sodium Level 138 mmol/L (136-145) 141 mmol/L (136-145) Potassium Level 3.6 mmol/L (3.5-5.1) 3.4 mmol/L (3.5-5.1) Chloride Level 99 mmol/L (98-107) 102 mmol/L (98-107) Carbon Dioxide Level 29 mmol/L (21-32) 29 mmol/L (21-32) Anion Gap 10 (6-14) 10 (6-14) Blood Urea Nitrogen 30 mg/dL (8-26) 28 mg/dL (8-26) Creatinine 0.8 mg/dL (0.7-1.3) 0.7 mg/dL (0.7-1.3) Estimated GFR (Cockcroft-Gault) 97.3 113.5 BUN/Creatinine Ratio 38 (6-20) Glucose Level 133 mg/dL (70-99) 113 mg/dL (70-99) Calcium Level 9.0 mg/dL (8.5-10.1) 8.8 mg/dL (8.5-10.1) Total Bilirubin 1.0 mg/dL (0.2-1.0) Aspartate Amino Transf (AST/SGOT) 10 U/L (15-37) Alanine Aminotransferase (ALT/SGPT) 13 U/L (16-63) Alkaline Phosphatase 42 U/L (46-116) Troponin I Quantitative < 0.017 ng/mL (0.000-0.055) NN-Dlc-V-Type Natriuretic Peptide 320 pg/mL (0-124) Total Protein 7.8 g/dL (6.4-8.2) Albumin 3.3 g/dL (3.4-5.0) Albumin/Globulin Ratio 0.7 (1.0-1.7) Thyroid Stimulating Hormone (TSH) 2.899 uIU/mL (0.358-3.74) Magnesium Level 1.7 mg/dL (1.8-2.4) Laboratory Tests Test 01/09/19 22:40 01/09/19 22:50 01/10/19 07:47 White Blood Count 10.2 x10^3/uL (4.0-11.0) 6.6 x10^3/uL (4.0-11.0) Red Blood Count 4.08 x10^6/uL (4.30-5.70) 3.97 x10^6/uL (4.30-5.70) Hemoglobin 12.4 g/dL (13.0-17.5) 12.0 g/dL (13.0-17.5) Hematocrit 37.1 % (39.0-53.0) 36.5 % (39.0-53.0) Mean Corpuscular Volume 91 fL (79-100) 92 fL (79-100) Mean Corpuscular Hemoglobin 30 pg (25-35) 30 pg (25-35) Mean Corpuscular Hemoglobin Concent 34 g/dL (31-37) 33 g/dL (31-37) Red Cell Distribution Width 15.4 % (11.5-14.5) 15.8 % (11.5-14.5) Platelet Count 141 x10^3/uL (140-400) 132 x10^3/uL (140-400) Neutrophils (%) (Auto) 74 % (31-73) 62 % (31-73) Lymphocytes (%) (Auto) 12 % (24-48) 22 % (24-48) Monocytes (%) (Auto) 14 % (0-9) 15 % (0-9) Eosinophils (%) (Auto) 0 % (0-3) 1 % (0-3) Basophils (%) (Auto) 0 % (0-3) 0 % (0-3) Neutrophils # (Auto) 7.5 x10^3uL (1.8-7.7) 4.1 x10^3uL (1.8-7.7) Lymphocytes # (Auto) 1.2 x10^3/uL (1.0-4.8) 1.5 x10^3/uL (1.0-4.8) Monocytes # (Auto) 1.4 x10^3/uL (0.0-1.1) 1.0 x10^3/uL (0.0-1.1) Eosinophils # (Auto) 0.0 x10^3/uL (0.0-0.7) 0.0 x10^3/uL (0.0-0.7) Basophils # (Auto) 0.0 x10^3/uL (0.0-0.2) 0.0 x10^3/uL (0.0-0.2) Prothrombin Time 14.8 SEC (11.7-14.0) Prothromb Time International Ratio 1.2 (0.8-1.1) Activated Partial Thromboplast Time 39 SEC (24-38) Sodium Level 138 mmol/L (136-145) 141 mmol/L (136-145) Potassium Level 3.6 mmol/L (3.5-5.1) 3.4 mmol/L (3.5-5.1) Chloride Level 99 mmol/L (98-107) 102 mmol/L (98-107) Carbon Dioxide Level 29 mmol/L (21-32) 29 mmol/L (21-32) Anion Gap 10 (6-14) 10 (6-14) Blood Urea Nitrogen 30 mg/dL (8-26) 28 mg/dL (8-26) Creatinine 0.8 mg/dL (0.7-1.3) 0.7 mg/dL (0.7-1.3) Estimated GFR (Cockcroft-Gault) 97.3 113.5 BUN/Creatinine Ratio 38 (6-20) Glucose Level 133 mg/dL (70-99) 113 mg/dL (70-99) Calcium Level 9.0 mg/dL (8.5-10.1) 8.8 mg/dL (8.5-10.1) Total Bilirubin 1.0 mg/dL (0.2-1.0) Aspartate Amino Transf (AST/SGOT) 10 U/L (15-37) Alanine Aminotransferase (ALT/SGPT) 13 U/L (16-63) Alkaline Phosphatase 42 U/L (46-116) Troponin I Quantitative < 0.017 ng/mL (0.000-0.055) EP-Cjg-Y-Type Natriuretic Peptide 320 pg/mL (0-124) Total Protein 7.8 g/dL (6.4-8.2) Albumin 3.3 g/dL (3.4-5.0) Albumin/Globulin Ratio 0.7 (1.0-1.7) Thyroid Stimulating Hormone (TSH) 2.899 uIU/mL (0.358-3.74) Magnesium Level 1.7 mg/dL (1.8-2.4) Medications Current Medications Ondansetron HCl (Zofran) 4 mg PRN Q8HRS PRN IV NAUSEA/VOMITING; Start 01/09/19 at 23:45; Stop 01/10/19 at 23:44 Morphine Sulfate (Morphine Sulfate) 4 mg PRN Q2HR PRN IV PAIN; Start 01/09/19 at 23:45; Stop 01/10/19 at 23:44 Enoxaparin Sodium (Lovenox 80mg Syringe) 70 mg Q12HR SQ ; Start 01/10/19 at 09:00 ; Stop 01/10/19 at 09:00; Status DC Enoxaparin Sodium (Lovenox 80mg Syringe) 70 mg Q12HR SQ Last administered on 01/10/19at 09:27; Start 01/10/19 at 01:00; Stop 01/10/19 at 13:44; Status DC Acetaminophen (Tylenol) 650 mg Q6HRS PO ; Start 01/10/19 at 18:00 Amlodipine Besylate (Norvasc) 5 mg DAILY PO Last administered on 01/10/19at 13:44 ; Start 01/10/19 at 14:00 Atorvastatin Calcium (Lipitor) 20 mg QHS PO ; Start 01/10/19 at 21:00 Baclofen (Lioresal) 10 mg QID PO ; Start 01/10/19 at 17:00 Carbidopa/Levodopa (Sinemet 25/100) 1 tab TID PO Last administered on 01/10/19at 13:43; Start 01/10/19 at 14:00 Vitamin D (Vitamin D3) 2,000 unit DAILY PO Last administered on 01/10/19 13:47 ; Start 01/10/19 at 14:00 Gabapentin (Neurontin) 100 mg TID PO Last administered on 01/10/19 13:43; Start 01/10/19 at 14:00 Artificial Tears (Artificial Tears) 1 drop TID OU ; Start 01/10/19 at 14:00 Donepezil HCl (Aricept) 5 mg QHS PO ; Start 01/10/19 at 21:00 Multivitamins (Thera M Plus) 1 tab DAILY PO Last administered on 01/10/19 13:43 ; Start 01/10/19 at 14:00 Nystatin (Mycostatin) 1 anisa TID TP ; Start 01/10/19 at 14:00 Sennosides (Senna) 8.6 mg QHS PO ; Start 01/10/19 at 21:00 Sertraline HCl (Zoloft) 100 mg DAILY PO Last administered on 01/10/19 13:43; Start 01/10/19 at 14:00 Enoxaparin Sodium (Lovenox 80mg Syringe) 80 mg Q12HR SQ ; Start 01/10/19 at 21:00 Active Scripts Active Reported Tylenol (Acetaminophen) 325 Mg Tablet 2 Tab PO Q6HRS Gabapentin (Gabapentin) 100 Mg Capsule 100 Mg PO TID Refresh Optive Eye Drops (Carboxymethylcellulos/Glycerin) 15 Ml Drops 1 Drop EACHEYE TID Nystatin 15 Gm Cream..g. 1 Anisa TP TID Sinemet 25-100 Mg Tablet (Carbidopa/Levodopa) 1 Each Tablet 1 Tab PO TID Baclofen 10 Mg Tablet 10 Mg PO QID Senna (Sennosides) 8.6 Mg Tablet 8.6 Mg PO HS Atorvastatin Calcium 20 Mg Tablet 20 Mg PO HS PRN Donepezil Hcl 5 Mg Tablet 5 Mg PO HS Vitamin D3 (Cholecalciferol (Vitamin D3)) 1,000 Unit Tablet 2 Tab PO DAILY Zoloft (Sertraline Hcl) 100 Mg Tablet 1 Tab PO DAILY Multivitamins (Multivitamin) 1 Each Tablet 1 Tab PO DAILY Benazepril Hcl 40 Mg Tablet 1 Tab PO DAILY Amlodipine Besylate 5 Mg Tablet 5 Mg PO DAILY Vitals/I & O Vital Sign - Last 24 Hours 01/09/19 01/09/19 01/09/19 01/10/19 21:03 22:48 23:55 00:41 Temp 98.0 98.6 98.0 98.6 Pulse 91 80 75 Resp 20 20 18 B/P (MAP) 149/83 (105) 123/76 (92) 126/73 (90) Pulse Ox 98 98 97 O2 Delivery Room Air Room Air Room Air Room Air 01/10/19 01/10/19 01/10/19 01/10/19 03:22 07:15 08:00 11:25 Temp 98.8 98.9 98.8 98.9 Pulse 71 71 74 Resp 16 12 14 B/P (MAP) 120/70 (87) 121/64 (83) 117/58 (77) Pulse Ox 92 90 92 O2 Delivery Room Air Room Air Room Air Room Air 01/10/19 13:44 Pulse 74 B/P (MAP) 117/58 Intake and Output 01/09/19 01/09/19 01/10/19 14:59 22:59 06:59 Intake Total 0 ml Balance 0 ml RANULFO DARLING MD Jan 10, 2019 15:39
[2019-01-10] MEDS: POLYVINYL ALCOHOL 1.4% OPHTH SOLUTION 15ML BOTTLE. OU SCH ×2 (18:30→22:14)
[2019-01-10] MEDS: ACETAMINOPHEN 325 MG TABLET. PO SCH ×2 (18:31→22:25)
[2019-01-10] MEDS: NYSTATIN 100,000 UNIT/GM TOPICAL CREAM 15GM TUBE. TP SCH ×2 (18:31→21:00)
[2019-01-10] MEDS: BACLOFEN 10 MG TABLET. PO SCH ×2 (18:31→22:13)
[2019-01-10 19:45] VITALS: BP 102/66
[2019-01-10] MEDS ORDERED: DONEPEZIL HCL 5 MG TABLET. PO SCH (21:00)
[2019-01-10] MEDS ORDERED: SENNOSIDES 8.6 MG TABLET PO SCH (21:00)
[2019-01-10] MEDS ORDERED: ATORVASTATIN CALCIUM 20 MG TABLET PO SCH (21:00)
[2019-01-10 22:59] VITALS: BP 109/68
[2019-01-11 03:55] VITALS: BP 113/66
[2019-01-11] MEDS: ACETAMINOPHEN 325 MG TABLET. PO SCH ×3 (05:53→12:36)
[2019-01-11 07:00] VITALS: BP 113/64
[2019-01-11] MEDS ORDERED: ANTI-COAG MONITOR BY PHARMACY. MC PRN (08:00)
--- NOTE | 2019-01-11 08:30 | NUR ---
Wound Care Pt seen for wound care consultation re: a L leg scab. Pt seen, Left leg is reddened, swollen, with petechiae, but no open wounds noted. Left groin has some redness in fold but no open areas. Pt incontinent of bladder, brief changed and saúl care completed. Repositioned pt onto R side with pillows and wedge, call light in reach. No wounds noted on full skin inspection.
[2019-01-11] MEDS: NYSTATIN 100,000 UNIT/GM TOPICAL CREAM 15GM TUBE. TP SCH ×2 (08:56→14:36)
[2019-01-11] MEDS: BACLOFEN 10 MG TABLET. PO SCH ×3 (08:57→17:30)
[2019-01-11] MEDS: RIVAROXABAN 15 MG TABLET. PO SCH ×3 (08:57→17:30)
[2019-01-11] MEDS: CARBIDOPA/LEVODOPA 25/100MG TABLET PO SCH ×2 (08:58→14:30)
[2019-01-11] MEDS: amLODIPine BESYLATE 5 MG TABLET PO SCH (08:58)
[2019-01-11] MEDS: SERTRALINE 50 MG TABLET. PO SCH (08:58)
[2019-01-11] MEDS: MULTIVITAMIN with MINERAL TABLET. PO SCH (08:59)
[2019-01-11] MEDS: GABAPENTIN 100 MG CAPSULE. PO SCH ×2 (08:59→14:30)
[2019-01-11] MEDS: CHOLECALCIFEROL (VITAMIN D3) 1,000 UNIT TABLET PO SCH (08:59)
[2019-01-11] MEDS: POLYVINYL ALCOHOL 1.4% OPHTH SOLUTION 15ML BOTTLE. OU SCH ×2 (09:00→14:35)
--- NOTE | 2019-01-11 09:26 | PDOC ---
PROGRESS NOTES Assessment Problems Medical Problems: (1) Left leg DVT Status: Acute Right basal ganglia hemorrhage in 2017, now with large focus of encephalomalacia extending to the right frontal cortical surface and residual chronic right frontal region subdural collection Post stroke dementia and Parkinson syndrome, may be worse with the DVT and there may also be infection in the left leg. I also wonder about the role of medication such as Sinemet or gabapentin that could lower his mental status. He was intolerant of MRI, moved, I believe risks outweigh benefits of sedated MRI Plan I canceled the neurosurgery counseled as we could not get the MRI and there is no suspicion of an acute neurosurgical incident Infectious disease consult if only to assuage the family's fears of infection I will consider medication holiday from possible offending medications but holding off for now. He is bright and alert, I see no need for electroencephalogram or lumbar puncture Subjective Complains IV hurts him Objective Vital Signs Date Time Temp Pulse Resp B/P (MAP) Pulse Ox O2 Delivery O2 Flow Rate FiO2 01/11/19 08:58 68 113/64 01/11/19 07:00 97.8 18 96 Room Air 97.8 Intake and Output 01/11/19 06:59 Intake Total 390 ml Balance 390 ml Intake Oral 390 ml # Voids 6 # Bowel Movements 3 PHYSICAL EXAM Alert. Oriented to place and person,not time. PERRL. EOMI. CN: Left field cut, left central facial weakness. Muscle tone: increased on left, arm>leg Muscle strength: 5/5 right, 1/5 left arm, 3/5 left leg DTR: 2+ Plantar reflex: flexor on right and silent on left Gait: not examined in bed. Sensory exam: increased sensation left arm. No cerebellar signs elicited. Review of Relevant I have reviewed the following items jose alfredo (where applicable) has been applied. Labs Laboratory Tests Test 01/09/19 22:40 01/09/19 22:50 01/10/19 06:00 01/10/19 07:47 White Blood Count 10.2 x10^3/uL (4.0-11.0) 6.6 x10^3/uL (4.0-11.0) Red Blood Count 4.08 x10^6/uL (4.30-5.70) 3.97 x10^6/uL (4.30-5.70) Hemoglobin 12.4 g/dL (13.0-17.5) 12.0 g/dL (13.0-17.5) Hematocrit 37.1 % (39.0-53.0) 36.5 % (39.0-53.0) Mean Corpuscular Volume 91 fL (79-100) 92 fL (79-100) Mean Corpuscular Hemoglobin 30 pg (25-35) 30 pg (25-35) Mean Corpuscular Hemoglobin Concent 34 g/dL (31-37) 33 g/dL (31-37) Red Cell Distribution Width 15.4 % (11.5-14.5) 15.8 % (11.5-14.5) Platelet Count 141 x10^3/uL (140-400) 132 x10^3/uL (140-400) Neutrophils (%) (Auto) 74 % (31-73) 62 % (31-73) Lymphocytes (%) (Auto) 12 % (24-48) 22 % (24-48) Monocytes (%) (Auto) 14 % (0-9) 15 % (0-9) Eosinophils (%) (Auto) 0 % (0-3) 1 % (0-3) Basophils (%) (Auto) 0 % (0-3) 0 % (0-3) Neutrophils # (Auto) 7.5 x10^3uL (1.8-7.7) 4.1 x10^3uL (1.8-7.7) Lymphocytes # (Auto) 1.2 x10^3/uL (1.0-4.8) 1.5 x10^3/uL (1.0-4.8) Monocytes # (Auto) 1.4 x10^3/uL (0.0-1.1) 1.0 x10^3/uL (0.0-1.1) Eosinophils # (Auto) 0.0 x10^3/uL (0.0-0.7) 0.0 x10^3/uL (0.0-0.7) Basophils # (Auto) 0.0 x10^3/uL (0.0-0.2) 0.0 x10^3/uL (0.0-0.2) Prothrombin Time 14.8 SEC (11.7-14.0) Prothromb Time International Ratio 1.2 (0.8-1.1) Activated Partial Thromboplast Time 39 SEC (24-38) Sodium Level 138 mmol/L (136-145) 141 mmol/L (136-145) Potassium Level 3.6 mmol/L (3.5-5.1) 3.4 mmol/L (3.5-5.1) Chloride Level 99 mmol/L (98-107) 102 mmol/L (98-107) Carbon Dioxide Level 29 mmol/L (21-32) 29 mmol/L (21-32) Anion Gap 10 (6-14) 10 (6-14) Blood Urea Nitrogen 30 mg/dL (8-26) 28 mg/dL (8-26) Creatinine 0.8 mg/dL (0.7-1.3) 0.7 mg/dL (0.7-1.3) Estimated GFR (Cockcroft-Gault) 97.3 113.5 BUN/Creatinine Ratio 38 (6-20) Glucose Level 133 mg/dL (70-99) 113 mg/dL (70-99) Calcium Level 9.0 mg/dL (8.5-10.1) 8.8 mg/dL (8.5-10.1) Total Bilirubin 1.0 mg/dL (0.2-1.0) Aspartate Amino Transf (AST/SGOT) 10 U/L (15-37) Alanine Aminotransferase (ALT/SGPT) 13 U/L (16-63) Alkaline Phosphatase 42 U/L (46-116) Troponin I Quantitative < 0.017 ng/mL (0.000-0.055) NN-Opg-A-Type Natriuretic Peptide 320 pg/mL (0-124) Total Protein 7.8 g/dL (6.4-8.2) Albumin 3.3 g/dL (3.4-5.0) Albumin/Globulin Ratio 0.7 (1.0-1.7) Thyroid Stimulating Hormone (TSH) 2.899 uIU/mL (0.358-3.74) Magnesium Level 1.7 mg/dL (1.8-2.4) Nasal Screen MRSA (PCR) Negative (Negative) Medications Current Medications Ondansetron HCl (Zofran) 4 mg PRN Q8HRS PRN IV NAUSEA/VOMITING; Start 01/09/19 at 23:45; Stop 01/10/19 at 23:44; Status DC Morphine Sulfate (Morphine Sulfate) 4 mg PRN Q2HR PRN IV PAIN; Start 01/09/19 at 23:45; Stop 01/10/19 at 23:44; Status DC Enoxaparin Sodium (Lovenox 80mg Syringe) 70 mg Q12HR SQ ; Start 01/10/19 at 09:00 ; Stop 01/10/19 at 09:00; Status DC Enoxaparin Sodium (Lovenox 80mg Syringe) 70 mg Q12HR SQ Last administered on 09:27; Start 01/10/19 at 01:00; Stop 01/10/19 at 13:44; Status DC Acetaminophen (Tylenol) 650 mg Q6HRS PO Last administered on 01/10/19 22:25; Start 01/10/19 at 18:00 Amlodipine Besylate (Norvasc) 5 mg DAILY PO Last administered on 01/11/19 08:58 ; Start 01/10/19 at 14:00 Atorvastatin Calcium (Lipitor) 20 mg QHS PO Last administered on 01/10/19 22:13 ; Start 01/10/19 at 21:00 Baclofen (Lioresal) 10 mg QID PO Last administered on 01/11/19 08:57; Start 01/10/19 at 17:00 Carbidopa/Levodopa (Sinemet 25/100) 1 tab TID PO Last administered on 01/11/19 08:58; Start 01/10/19 at 14:00 Vitamin D (Vitamin D3) 2,000 unit DAILY PO Last administered on 01/11/19 08:59 ; Start 01/10/19 at 14:00 Gabapentin (Neurontin) 100 mg TID PO Last administered on 01/11/19 08:59; Start 01/10/19 at 14:00 Artificial Tears (Artificial Tears) 1 drop TID OU Last administered on 22:14; Start 01/10/19 at 14:00 Donepezil HCl (Aricept) 5 mg QHS PO Last administered on 01/10/19 22:13; Start 01/10/19 at 21:00 Multivitamins (Thera M Plus) 1 tab DAILY PO Last administered on 01/11/19 08:59 ; Start 01/10/19 at 14:00 Nystatin (Mycostatin) 1 anisa TID TP Last administered on 01/11/19at 08:56; Start 01/10/19 at 14:00 Sennosides (Senna) 8.6 mg QHS PO Last administered on 01/10/19 21:00; Start 01/10/19 at 21:00 Sertraline HCl (Zoloft) 100 mg DAILY PO Last administered on 01/11/19 08:58; Start 01/10/19 at 14:00 Enoxaparin Sodium (Lovenox 80mg Syringe) 80 mg Q12HR SQ Last administered on 21:00; Start 01/10/19 at 21:00; Stop 01/11/19 at 07:32; Status DC Rivaroxaban (Xarelto) 15 mg BIDWMEALS PO ; Start 01/11/19 at 08:00 Info (Anti-Coagulation Monitoring By Pharmacy) 1 each PRN DAILY PRN MC SEE COMMENTS; Start 01/11/19 at 08:00 Active Scripts Active Reported Tylenol (Acetaminophen) 325 Mg Tablet 2 Tab PO Q6HRS Gabapentin (Gabapentin) 100 Mg Capsule 100 Mg PO TID Refresh Optive Eye Drops (Carboxymethylcellulos/Glycerin) 15 Ml Drops 1 Drop EACHEYE TID Nystatin 15 Gm Cream..g. 1 Anisa TP TID Sinemet 25-100 Mg Tablet (Carbidopa/Levodopa) 1 Each Tablet 1 Tab PO TID Baclofen 10 Mg Tablet 10 Mg PO QID Senna (Sennosides) 8.6 Mg Tablet 8.6 Mg PO HS Atorvastatin Calcium 20 Mg Tablet 20 Mg PO HS PRN Donepezil Hcl 5 Mg Tablet 5 Mg PO HS Vitamin D3 (Cholecalciferol (Vitamin D3)) 1,000 Unit Tablet 2 Tab PO DAILY Zoloft (Sertraline Hcl) 100 Mg Tablet 1 Tab PO DAILY Multivitamins (Multivitamin) 1 Each Tablet 1 Tab PO DAILY Benazepril Hcl 40 Mg Tablet 1 Tab PO DAILY Amlodipine Besylate 5 Mg Tablet 5 Mg PO DAILY Vitals/I & O Vital Sign - Last 24 Hours 01/10/19 01/10/19 01/10/19 01/10/19 11:25 13:44 15:20 19:45 Temp 98.9 98.1 97.9 98.9 98.1 97.9 Pulse 74 74 77 75 Resp 14 14 18 B/P (MAP) 117/58 (77) 117/58 117/71 (86) 102/66 (78) Pulse Ox 92 92 92 O2 Delivery Room Air Room Air Room Air 01/10/19 01/10/19 01/11/19 01/11/19 20:00 22:59 03:55 07:00 Temp 98.2 98.1 97.8 98.2 98.1 97.8 Pulse 69 75 68 Resp 18 18 18 B/P (MAP) 109/68 (82) 113/66 (82) 113/64 (80) Pulse Ox 92 91 96 O2 Delivery Room Air Room Air Room Air Room Air 01/11/19 08:58 Pulse 68 B/P (MAP) 113/64 Intake and Output 01/10/19 01/10/19 01/11/19 14:59 22:59 06:59 Intake Total 240 ml 100 ml 50 ml Balance 240 ml 100 ml 50 ml DEVI SERRANO MD Jan 11, 2019 09:26
--- NOTE | 2019-01-11 09:43 | NUR ---
Patient is not having diarrhea or loose stools. C-Diff testing is not needed at this time.
--- NOTE | 2019-01-11 10:28 | NUR ---
SW faxed updated clinicals to [facility]. Will continue to follow.
[2019-01-11 11:00] VITALS: BP 99/68
--- NOTE | 2019-01-11 11:46 | PDOC ---
Infectious Disease Note Vital Signs: Vital Signs Vital Signs Date Time Temp Pulse Resp B/P (MAP) Pulse Ox O2 Delivery O2 Flow Rate FiO2 01/11/19 11:00 98.0 77 18 99/68 (78) 98 Room Air 98.0 Medications: Inpatient Meds: Current Medications Medications (Trade) Dose Ordered Sig/Kenna Start Time Stop Time Status Last Admin Dose Admin Acetaminophen (Tylenol) 650 mg Q6HRS 01/10/19 18:00 01/10/19 22:25 650 MG Amlodipine Besylate (Norvasc) 5 mg DAILY 01/10/19 14:00 01/11/19 08:58 5 MG Artificial Tears (Artificial Tears) 1 drop TID 01/10/19 14:00 01/10/19 22:14 1 DROP Atorvastatin Calcium (Lipitor) 20 mg QHS 01/10/19 21:00 01/10/19 22:13 20 MG Baclofen (Lioresal) 10 mg QID 01/10/19 17:00 01/11/19 08:57 10 MG Carbidopa/Levodopa (Sinemet 25/100) 1 tab TID 01/10/19 14:00 01/11/19 08:58 1 TAB Donepezil HCl (Aricept) 5 mg QHS 01/10/19 21:00 01/10/19 22:13 5 MG Enoxaparin Sodium (Lovenox 80mg Syringe) 80 mg Q12HR 01/10/19 21:00 01/11/19 07:32 DC 01/10/19 21:00 80 MG Gabapentin (Neurontin) 100 mg TID 01/10/19 14:00 01/11/19 08:59 100 MG Info (Anti-Coagulation Monitoring By Pharmacy) 1 each PRN DAILY PRN 01/11/19 08:00 Morphine Sulfate (Morphine Sulfate) 4 mg PRN Q2HR PRN 01/09/19 23:45 01/10/19 23:44 DC Multivitamins (Thera M Plus) 1 tab DAILY 01/10/19 14:00 01/11/19 08:59 1 TAB Nystatin (Mycostatin) 1 brit TID 01/10/19 14:00 01/11/19 08:56 1 BRIT Ondansetron HCl (Zofran) 4 mg PRN Q8HRS PRN 01/09/19 23:45 01/10/19 23:44 DC Rivaroxaban (Xarelto) 15 mg BIDWMEALS 01/11/19 08:00 Sennosides (Senna) 8.6 mg QHS 01/10/19 21:00 01/10/19 21:00 8.6 MG Sertraline HCl (Zoloft) 100 mg DAILY 01/10/19 14:00 01/11/19 08:58 100 MG Vitamin D (Vitamin D3) 2,000 unit DAILY 01/10/19 14:00 01/11/19 08:59 2,000 UNIT Objective: Assessment: Pt seen and examined IMP: Lt Leg DVT Redness if from inflammation No clinical evidence of SSTI at this time Afebrile ,no leucocytosis H/O ICH,CVA,Parkinsons COPD HLD Onychomycosis Tinea Plan: Plan of Care Nystatin cream as you are doing No need for antibiotics at this time Treatment for DVT as you are doing Podiatry consult for trimming toe nails can be done at [facility] Monitor Lt knee area closely at the site of superficial abrasion from Thank you [id number] RANDELL BARCENAS MD Jan 11, 2019 11:46
[2019-01-11] MEDS ORDERED: RIVA15TA PO (13:09)
[2019-01-11] MEDS ORDERED: RIVA20TA2 PO (13:09)
--- NOTE | 2019-01-11 13:34 | PDOC3 ---
Discharge Summary Visit Information Date of Admission: Jan 09, 2019 Date of Discharge: Jan 11, 2019 Admitting Diagnosis Comment: Left leg swelling - confirmed DVT on doppler at [facility], unable to get xarelto. As he has a subdural measured greater than 12mm it would be prudent to start lovenox therapeutic tonight and transition to NOAC like eliquis tomorrow morning after consultation with neurosurgery Subdural hematoma - does appear chronic from 2 years ago. 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 Final Diagnosis Left leg swelling - confirmed DVT on doppler at [facility] Subdural hematoma - does appear chronic from 2 years ago. 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 Brief Hospital Course Allergies Allergies Coded Allergies Type Severity Reaction Last Updated Verified No Known Drug Allergies 12/15/16 No Vital Signs Vital Signs Date Time Temp Pulse Resp B/P (MAP) Pulse Ox O2 Delivery O2 Flow Rate FiO2 01/11/19 11:00 98.0 77 18 99/68 (78) 98 Room Air 98.0 Lab Results Laboratory Tests Test 01/09/19 22:40 01/09/19 22:50 01/10/19 06:00 01/10/19 07:47 White Blood Count 10.2 x10^3/uL (4.0-11.0) 6.6 x10^3/uL (4.0-11.0) Red Blood Count 4.08 x10^6/uL (4.30-5.70) 3.97 x10^6/uL (4.30-5.70) Hemoglobin 12.4 g/dL (13.0-17.5) 12.0 g/dL (13.0-17.5) Hematocrit 37.1 % (39.0-53.0) 36.5 % (39.0-53.0) Mean Corpuscular Volume 91 fL (79-100) 92 fL (79-100) Mean Corpuscular Hemoglobin 30 pg (25-35) 30 pg (25-35) Mean Corpuscular Hemoglobin Concent 34 g/dL (31-37) 33 g/dL (31-37) Red Cell Distribution Width 15.4 % (11.5-14.5) 15.8 % (11.5-14.5) Platelet Count 141 x10^3/uL (140-400) 132 x10^3/uL (140-400) Neutrophils (%) (Auto) 74 % (31-73) 62 % (31-73) Lymphocytes (%) (Auto) 12 % (24-48) 22 % (24-48) Monocytes (%) (Auto) 14 % (0-9) 15 % (0-9) Eosinophils (%) (Auto) 0 % (0-3) 1 % (0-3) Basophils (%) (Auto) 0 % (0-3) 0 % (0-3) Neutrophils # (Auto) 7.5 x10^3uL (1.8-7.7) 4.1 x10^3uL (1.8-7.7) Lymphocytes # (Auto) 1.2 x10^3/uL (1.0-4.8) 1.5 x10^3/uL (1.0-4.8) Monocytes # (Auto) 1.4 x10^3/uL (0.0-1.1) 1.0 x10^3/uL (0.0-1.1) Eosinophils # (Auto) 0.0 x10^3/uL (0.0-0.7) 0.0 x10^3/uL (0.0-0.7) Basophils # (Auto) 0.0 x10^3/uL (0.0-0.2) 0.0 x10^3/uL (0.0-0.2) Prothrombin Time 14.8 SEC (11.7-14.0) Prothromb Time International Ratio 1.2 (0.8-1.1) Activated Partial Thromboplast Time 39 SEC (24-38) Sodium Level 138 mmol/L (136-145) 141 mmol/L (136-145) Potassium Level 3.6 mmol/L (3.5-5.1) 3.4 mmol/L (3.5-5.1) Chloride Level 99 mmol/L (98-107) 102 mmol/L (98-107) Carbon Dioxide Level 29 mmol/L (21-32) 29 mmol/L (21-32) Anion Gap 10 (6-14) 10 (6-14) Blood Urea Nitrogen 30 mg/dL (8-26) 28 mg/dL (8-26) Creatinine 0.8 mg/dL (0.7-1.3) 0.7 mg/dL (0.7-1.3) Estimated GFR (Cockcroft-Gault) 97.3 113.5 BUN/Creatinine Ratio 38 (6-20) Glucose Level 133 mg/dL (70-99) 113 mg/dL (70-99) Calcium Level 9.0 mg/dL (8.5-10.1) 8.8 mg/dL (8.5-10.1) Total Bilirubin 1.0 mg/dL (0.2-1.0) Aspartate Amino Transf (AST/SGOT) 10 U/L (15-37) Alanine Aminotransferase (ALT/SGPT) 13 U/L (16-63) Alkaline Phosphatase 42 U/L (46-116) Troponin I Quantitative < 0.017 ng/mL (0.000-0.055) TR-Geh-B-Type Natriuretic Peptide 320 pg/mL (0-124) Total Protein 7.8 g/dL (6.4-8.2) Albumin 3.3 g/dL (3.4-5.0) Albumin/Globulin Ratio 0.7 (1.0-1.7) Thyroid Stimulating Hormone (TSH) 2.899 uIU/mL (0.358-3.74) Magnesium Level 1.7 mg/dL (1.8-2.4) Nasal Screen MRSA (PCR) Negative (Negative) Brief Hospital Course 63 year old male with history of hypertension, prior ETOH abuse, prior hemorrhagic CVA, left upper extremity contracture, who presents to the ED today from a shelter for DVT of the left lower extremity which was diagnosed this afternoon via ultrasound. Family states patient was supposed to be started on Xarelto. They state the medicine is not available at the shelter and it could not come soon enough. Patient denies any shortness of breath. Denies any chest pain. Patient admitted given his complicated past medical history with subdural hematoma which seems to be chronic in nature. The patient was initially started on Lovenox awaiting recommendations from neurosurgery neurology. Patient was also seen in consultation by infectious disease given erythema that was noted on the affected limb. This seemed to be thrombophlebitis. The patient is in good spirits and in no acute distress throughout his hospital stay. He was deemed appropriate for discharge of throat consultants signed off. He was started on Xarelto transitioning from Lovenox noted to address his DVT left lower extremity. Weightbearing as tolerated Changes to his other medications were done please refer to the medical record for full list. Greater than 35 minutes were spent in the discharge process of the patient in counseling coronation of care and arrangements for a safe transfer Discharge Information Condition at Discharge: Improved Disposition/Orders: D/C to Home Scheduled Acetaminophen (Tylenol) 325 Mg Tablet, 2 TAB PO Q6HRS for PAIN, #60 Ref 2 ( Reported) Entered as Reported by: PORFIRIO KAISER on 01/10/191105 Last Taken: Unknown Dose on Unknown Date & Time Last Action: Continued on 01/10/191304 by PORFIRIO KAISER Amlodipine Besylate (Amlodipine Besylate) 5 Mg Tablet, 5 MG PO DAILY, (Reported) Entered as Reported by: RADAMES LATHAM on 12/16/16 0732 Last Taken: Unknown Dose on Unknown Date & Time Last Action: Continued on 01/10/19 130 by PORFIRIO KAISER Baclofen (Baclofen) 10 Mg Tablet, 10 MG PO QID for MUSCLE SPASMS, #30 Ref 0 ( Reported) Entered as Reported by: PORFIRIO KAISER on 01/10/191105 Last Taken: Unknown Dose on Unknown Date & Time Last Action: Continued on 01/10/191304 by PORFIRIO KAISER Benazepril Hcl (Benazepril Hcl) 40 Mg Tablet, 1 TAB PO DAILY, #30 Ref 5 ( Reported) Entered as Reported by: RADAMES LATHAM on 12/16/16 0732 Last Action: HELD on 01/10/191444 by RANULFO DARLING MD Carbidopa/Levodopa (Sinemet 25-100 Mg Tablet) 1 Each Tablet, 1 TAB PO TID for PARKINSONS, (Reported) Entered as Reported by: PORFIRIO KAISER on 01/10/191105 Last Taken: Unknown Dose on Unknown Date & Time Last Action: Continued on 01/10/191304 by PORFIRIO KAISER Carboxymethylcellulos/Glycerin (Refresh Optive Eye Drops) 15 Ml Drops, 1 DROP EACHEYE TID for DRY EYES, #30 Ref 6 (Reported) Entered as Reported by: PORFIRIO KAISER on 01/10/191105 Last Taken: Unknown Dose on Unknown Date & Time Last Action: Converted on 01/10/191304 by PORFIRIO KAISER Cholecalciferol (Vitamin D3) (Vitamin D3) 1,000 Unit Tablet, 2 TAB PO DAILY for SUPPLEMENT, #30 Ref 5 (Reported) Entered as Reported by: PORFIRIO KAISER on 01/10/191052 Last Taken: Unknown Dose on Unknown Date & Time Last Action: Continued on 01/10/191304 by PORFIRIO KAISER Donepezil Hcl (Donepezil Hcl) 5 Mg Tablet, 5 MG PO HS for MOOD STABILIZATION, ( Reported) Entered as Reported by: PORFIRIO KAISER on 01/10/191105 Last Taken: Unknown Dose on Unknown Date & Time Last Action: Converted on 01/10/191304 by PORFIRIO KAISER Gabapentin (Gabapentin ) 100 Mg Capsule, 100 MG PO TID for NERVE PAIN, ( Reported) Entered as Reported by: PORFIRIO KAISER on 01/10/191105 Last Taken: Unknown Dose on Unknown Date & Time Last Action: Continued on 01/10/191304 by PORFIRIO KAISER Multivitamin (Multivitamins) 1 Each Tablet, 1 TAB PO DAILY for WOUND SUPPLEMENT , #90 Ref 3 (Reported) Entered as Reported by: PORFIRIO KAISER on 01/10/191052 Last Taken: Unknown Dose on Unknown Date & Time Last Action: Converted on 01/10/191304 by PORFIRIO KAISER Nystatin (Nystatin) 15 Gm Cream..g., 1 ERMIAS TP TID for FOR REDNESSOF ABDIAS AREA, # 30 (Reported) Entered as Reported by: PORFIRIO KAISER on 01/10/191105 Last Taken: Unknown Dose on Unknown Date & Time Last Action: Converted on 01/10/191304 by PORFIRIO KAISER Rivaroxaban (Xarelto) 15 Mg Tablet, 15 MG PO BIDWMEALS for DVT for 21 Days, #41 Prescribed by: RANULFO DARLING MD on 01/11/19 130 Rivaroxaban (Xarelto) 20 Mg Tablet, 20 MG PO DAILY for DVT for 30 Days, #30 Prescribed by: RANULFO DARLING MD on 01/11/19 1309 Sennosides (Senna) 8.6 Mg Tablet, 8.6 MG PO HS for CONSTIPATION, (Reported) Entered as Reported by: PORFIRIO KAISER on 01/10/191105 Last Taken: Unknown Dose on Unknown Date & Time Last Action: Converted on 01/10/191304 by PORFIRIO KAISER Sertraline Hcl (Zoloft) 100 Mg Tablet, 1 TAB PO DAILY for DEPRESSION, #30 Ref 5 (Reported) Entered as Reported by: PORFIRIO KAISER on 01/10/19 105 Last Taken: Unknown Dose on Unknown Date & Time Last Action: Converted on 01/10/191304 by PORFIRIO KAISER Scheduled PRN Atorvastatin Calcium (Atorvastatin Calcium) 20 Mg Tablet, 20 MG PO HS PRN for HIGH HDL, #30 Ref 0 (Reported) Entered as Reported by: PORFIRIO KAISER on 01/10/191105 Last Taken: Unknown Dose on Unknown Date & Time Last Action: Continued on 01/10/191304 by RANULFO LAU MD Jan 11, 2019 13:34
--- NOTE | 2019-01-11 13:40 | SNU/HH DC ---
DISCHARGE ORDERS DISCHARGE INFORMATION: DISCHARGE DATE: Jan 11, 2019 FINAL DIAGNOSIS Problems Medical Problems: (1) Left leg DVT Status: Acute CONDITION ON DISCHARGE: Stable CODE STATUS: Code Status: Full MCFP: SNF STAY <30 DAYS: Yes POST DISCHARGE ORDERS: ACTIVITY ORDERS: Activity as tolerated WEIGHT BEARING STATUS: No restrictions TREATMENT/EQUIPMENT ORDERS: Physical Therapy For: Evalulation/Treatment Occupational Therapy For: Evaluation/Treatment DISCHARGE MEDICATIONS: Home Meds Active Scripts Rivaroxaban (XARELTO) 20 Mg Tablet, 20 MG PO DAILY for DVT for 30 Days, #30 TAB Prov:RANULFO DARLING MD 01/11/19 Rivaroxaban (XARELTO) 15 Mg Tablet, 15 MG PO BIDWMEALS for DVT for 21 Days, #41 TAB Prov:RANULFO DARLING MD 01/11/19 Reported Medications Acetaminophen (TYLENOL) 325 Mg Tablet, 2 TAB PO Q6HRS for PAIN, #60 TAB 2 Refills 01/10/19 Gabapentin (GABAPENTIN ) 100 Mg Capsule, 100 MG PO TID for NERVE PAIN, CAP 01/10/19 Carboxymethylcellulos/Glycerin (REFRESH OPTIVE EYE DROPS) 15 Ml Drops, 1 DROP EACHEYE TID for DRY EYES, #30 ML 6 Refills 01/10/19 Nystatin (NYSTATIN) 15 Gm Cream..g., 1 ERMIAS TP TID for FOR REDNESSOF ABDIAS AREA, # 30 GM 01/10/19 Carbidopa/Levodopa (SINEMET 25-100 MG TABLET) 1 Each Tablet, 1 TAB PO TID for PARKINSONS, TAB 01/10/19 Baclofen (BACLOFEN) 10 Mg Tablet, 10 MG PO QID for MUSCLE SPASMS, #30 TAB 0 Refills 01/10/19 Sennosides (SENNA) 8.6 Mg Tablet, 8.6 MG PO HS for CONSTIPATION, TAB 01/10/19 Atorvastatin Calcium (ATORVASTATIN CALCIUM) 20 Mg Tablet, 20 MG PO HS PRN for HIGH HDL, #30 TAB 0 Refills 01/10/19 Donepezil Hcl (DONEPEZIL HCL) 5 Mg Tablet, 5 MG PO HS for MOOD STABILIZATION, TAB 01/10/19 Cholecalciferol (Vitamin D3) (VITAMIN D3) 1,000 Unit Tablet, 2 TAB PO DAILY for SUPPLEMENT, #30 TAB 5 Refills 01/10/19 Sertraline Hcl (ZOLOFT) 100 Mg Tablet, 1 TAB PO DAILY for DEPRESSION, #30 TAB 5 Refills 01/10/19 Multivitamin (MULTIVITAMINS) 1 Each Tablet, 1 TAB PO DAILY for WOUND SUPPLEMENT , #90 TAB 3 Refills 01/10/19 Benazepril Hcl (BENAZEPRIL HCL) 40 Mg Tablet, 1 TAB PO DAILY, #30 TAB 5 Refills 12/16/16 Amlodipine Besylate (AMLODIPINE BESYLATE) 5 Mg Tablet, 5 MG PO DAILY, TAB 12/16/16 RANULFO DARLING MD Jan 11, 2019 13:40
--- NOTE | 2019-01-11 13:59 | NUR ---
SW following. [facility] phoned and faxed orders to [facility]. Pt will transport via [facility] at 1600. Packet on chart. Pt's aware of plan and agreeable. Discussed with RN. Addendum: 01/11/19 at 1634 by FER SOLORIO SW following pt. [facility] notified by RN, pt's declined EMS transport and EMS left without taking pt. [facility] spoke with [facility] who reported their van is not available to transport pt. [facility] arranged transportation via [facility] between [phone]. RN notified.
[2019-01-11 15:00] VITALS: BP 104/63
--- NOTE | 2019-01-11 18:04 | CONS ---
DATE OF CONSULTATION: 01/11/2019 REFERRING PHYSICIAN: Dr. Roman. SOURCE: Caregiver, chart review, the patient. REASON FOR CONSULTATION: Possible cellulitis. HISTORY OF PRESENT ILLNESS: A 63-year-old male with history of hypertension, CVA, left upper extremity contracture, right hemispheric hemorrhagic stroke 2 years ago requiring hematoma evacuation, current resident at [facility], was admitted through ER where he presented with left lower extremity swelling. Ultrasound revealed a DVT. The patient also had some altered mental status 2-3 weeks prior to admission. The patient has history of MRSA ankle infection of the left side for which he underwent removal of hardware in summer at [facility] where he was treated with IV vancomycin for about 6 weeks under the care of KATLYN BLUM. There is no drainage from the left lateral ankle. There is swelling and some redness over the left thigh in the area of the DVT. The patient's was concerned about possible infection, so Infectious Disease consult has been requested. 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 The patient denies any fevers, chills, nausea, vomiting, diarrhea, abdominal pain. The patient has not been on any antibiotics prior to admission. The patient has had history of falls in the past, none recently. CT of the head showed a right basal ganglia hemorrhage that has been replaced by large focus of encephalomalacia, also encephalomalacia extending to the right frontal cortical surface. There is residual right frontal region subdural collection, which appears primary to be more chronic, although some subtle internal hyperdensity, possibly late subacute hemorrhagic component. This would be more accurately characterized when on emergent MRI if clinically needed. There is increased third and lateral ventriculomegaly compared with previous exam, may be component of hydrocephalus given somewhat disproportionate size of ventricles comparing with subarachnoid spaces. The patient's white count on admission was within normal limits, hemoglobin of 12, platelets of 132. Creatinine was normal. MRSA nasal screen was negative. Chest x-ray showed no radiographic abnormality. The patient has remained afebrile throughout her hospitalization. PAST MEDICAL HISTORY: Hypertension, history of intracranial hemorrhage 2 years ago, now with encephalomalacia and Parkinson's, COPD, CVA, history of right ankle MRSA infection, status post hardware removal summer, treated with IV antibiotics for 6 weeks, no antibiotics since. Onychomycosis dry skin, left hip pain, chronic from falls in 2017 prior to intracerebral hemorrhage, right knee surgery. FAMILY HISTORY: As per HPI. SOCIAL HISTORY: No ETOH. No illicit drug use. Currently resides at [facility]. , at bedside. CURRENT MEDICATIONS: Xarelto, sennoside, donepezil, Lipitor, acetaminophen, baclofen, sertraline, nystatin, multivitamin, artificial tears, gabapentin, vitamin D, carbidopa/levodopa, amlodipine, enoxaparin. ALLERGIES: No known drug allergies. REVIEW OF SYSTEMS: No fevers, no chills. No headache, runny nose, shortness of breath, cough, chest pain with deep breathing, chest pain, palpitation, abdominal pain, nausea, vomiting, diarrhea. Positive for left lower leg swelling, pain in the left hip, chronic. PHYSICAL EXAMINATION: VITAL SIGNS: Temperature 98, pulse 77, respiratory rate 18, blood pressure 99/68, oxygen saturation 98% on room air. GENERAL: Alert and oriented x 3, cooperative male in no acute distress. HEENT: Normocephalic, atraumatic, anicteric. No conjunctival petechia. No thrush. NECK: Supple. No JVD. LUNGS: Clear bilaterally. No wheezing. HEART: S1, S2. No gallops. No murmurs or rubs. ABDOMEN: Soft, nontender, nondistended. No rebound, no guarding. EXTREMITIES: Significant left lower extremity edema mainly over the left thigh with diffuse faint erythema, going up the groin,No warmth, Toes onychomycosis, dry skin, scar over left lateral ankle well-healed and right knee well-healed, right lower extremity normal. skin superficial abrasion over the lt knee laterally, not infected CENTRAL NERVOUS SYSTEM: Mild flexion contracture to the left knee as well as left arm. PSYCHIATRIC: Appropriate mood and affect. SKIN: Warm, dry, no generalized rash except for above, onychomycosis mainly of the toes and dry skin. LABORATORY DATA: WBC 6.6, hemoglobin 12.0, hematocrit 36.5, platelets 132, and neutrophils 62. Sodium 138, potassium 3.6, chloride 99, bicarbonate 29, BUN 30, creatinine 0.8, glucose 133, calcium 9.0, total bilirubin 1.0, AST 10, ALT 13, alkaline phosphatase 42, total protein 7.8, albumin 3.3. MRSA screen negative. IMAGING: Chest x-ray as above, negative for acute infiltrate. Head CT as above. IMPRESSION: 1. Left lower extremity swelling confirmed deep vein thrombosis on Doppler at [facility], unable to get Xarelto with surrounding redness, swelling, afebrile, no leukocytosis. Redness is likely from inflammation. There is no evidence of cellulitis or abscess on today's exam. 2. Subdural hematoma 2 years ago. 3. Hypertension. 4. 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 5. Parkinson's disease. 6. History of methicillin-resistant Staphylococcus aureus, left ankle treated with IV antibiotics 03/2018 at [facility] status post hardware removal. The patient has not been on any antibiotics since. 7. Onychomycosis of the toes. 8. I do not feel the patient has cellulitis. Redness and swelling is probably from underlying deep vein thrombosis. Would not treat with antibiotics at this time. Monitor left knee area where a superficial abrasion from friction against a wheelchair. No evidence of secondary infection at this time. RECOMMENDATIONS: 1. Continue observation off antibiotics. 2. Continue nystatin b.i.d. for both feet. 3. DVT management per primary. 4. Observe left knee area closely. 5. Elevation of left lower extremity. 6. There is no evidence of phlegmasia cerulea dolens at this time. 7. Vascular Surgery has been consulted. 8. Neurology is following. 9. Discussed with at bedside at length. Thank you, Dr. Roman for consulting Infectious Disease to participate in this patient's care. If you have any questions, do not hesitate to contact me. RANDELL BARCENAS MD DR: PATRICIA/niles JOB#: [id number] / [id number] MARTHA
--- NOTE | 2019-01-11 18:34 | NUR ---
Report called to Ondina Lawson at [facility].
--- NOTE | 2019-01-11 19:44 | NUR ---
Discharge Note: JOSE IGLESIAS [address] [place] [address] Discharge instructions and discharge home medications reviewed with Other facility and a copy given. All questions have been answered and understanding verbalized. The following instructions and handouts were given: Diet, activity, medication list and follow up instructions provided to [facility]. Discontinued lines and drains: Peripheral IV discontinued and catheter intact. [facility]
== END 2019-01-11 18:55 | DRG 300 ==
LOC: ER 21:03 → 6 SOUTH 21:50
PROVIDERS: ADMIT Internal Medicine; ATTEND Internal Medicine
DX: I82.412 Acute embolism and thrombosis of left femoral vein (principal); I69.354 Hemiplegia and hemiparesis following cerebral infarction affecting left non-dominant side; G93.49 Other encephalopathy; G91.9 Hydrocephalus, unspecified; G93.89 Other specified disorders of brain; I82.432 Acute embolism and thrombosis of left popliteal vein; I10 Essential (primary) hypertension; F41.9 Anxiety disorder, unspecified; B35.1 Tinea unguium; E78.5 Hyperlipidemia, unspecified; M24.542 Contracture, left hand; F32.9 Major depressive disorder, single episode, unspecified; G20 Parkinson's disease; J44.9 Chronic obstructive pulmonary disease, unspecified; Z79.899 Other long term (current) drug therapy; Z79.01 Long term (current) use of anticoagulants; Z82.49 Family history of ischemic heart disease and other diseases of the circulatory system; Z86.14 Personal history of Methicillin resistant Staphylococcus aureus infection; Z86.718 Personal history of other venous thrombosis and embolism; Z86.79 Personal history of other diseases of the circulatory system; Z91.81 History of falling; F01.50 Vascular dementia, unspecified severity, without behavioral disturbance, psychotic disturbance, mood disturbance, and anxiety
CPT/HCPCS: 36415; 70450; 71045; 80048; 80053; 83735; 83880; 84443; 84484; 85025; 85610; 85730; 87641; 93005; J1650; 99285-25

== ENCOUNTER 2019-02-01 03:36 | Emergency (ER) | payer OTHER ==
[~2019-02-01] VITALS: Ht 167.6 cm; Wt 79.8 kg
[~2019-02-01 03:36] MED LIST changes: +ACET325T9 PO; +ATOR20TA58 PO; +BACL10TA PO; +CARB15DR3 EACHEYE; +CARB1TAB2 PO; +CHOL10003 PO; +DONE5TAB7 PO; +GABA-585 PO; +MULT1TAB52 PO; +NYST15CR TP; +RIVA15TA PO; +RIVA20TA2 PO; +SENN-80 PO; +SERT100T PO
[2019-02-01 04:00] LABS: BASO # 0.1 x10^3/uL (0.0-0.2); BASO % 1 % (0-3); EOS # 0.1 x10^3/uL (0.0-0.7); EOS % 2 % (0-3); HEMATOCRIT 33.5 % (39.0-53.0); HEMOGLOBIN 11.2 g/dL (13.0-17.5); LYMPH % 34 % (24-48); MEAN CORPUSCULAR HEMOGLOBIN 31 pg (25-35); MEAN CORPUSCULAR HGB CONC 33 g/dL (31-37); MEAN CORPUSCULAR VOLUME 91 fL (79-100); MONO # 0.7 x10^3/uL (0.0-1.1); MONO % 12 % (0-9); NEUT % 51 % (31-73); PLATELET COUNT 255 x10^3/uL (140-400); RED BLOOD COUNT 3.67 x10^6/uL (4.30-5.70); RED CELL DISTRIBUTION WIDTH 15.5 % (11.5-14.5); WHITE BLOOD COUNT 5.9 x10^3/uL (4.0-11.0)
[2019-02-01 04:10] LABS: CREATININE 0.6 mg/dL (0.7-1.3); GFR 135.6
[2019-02-01 04:13] LABS: PROTHROMBIN TIME PATIENT 17.1 SEC (11.7-14.0)
[2019-02-01 04:15] LABS: ALBUMIN/GLOBULIN RATIO 0.8 (1.0-1.7); MAGNESIUM 1.9 mg/dL (1.8-2.4); TOTAL BILIRUBIN 0.4 mg/dL (0.2-1.0); TOTAL PROTEIN 6.9 g/dL (6.4-8.2)
[2019-02-01] MEDS ORDERED: HYDR-3164 PO (04:22)
--- NOTE | 2019-02-01 04:22 | PHYS DOC ---
Past Medical History Past Medical History: Anxiety, Dementia, High Cholesterol, Hypertension, Other Additional Past Medical Histor: ALCOHOL ABUSE, "TBI", PARKINSON'S, MDD Past Surgical History: Other Additional Past Surgical Histo: "BACK SURGERY" Alcohol Use: Heavy Drug Use: None Adult General Chief Complaint Chief Complaint: MECHANICAL FALL HPI HPI Patient is a 63 year old [f__sex] who presents with [] Review of Systems Review of Systems Constitutional: Denies fever or chills [] Eyes: Denies change in visual acuity, redness, or eye pain [] HENT: Denies nasal congestion or sore throat [] Respiratory: Denies cough or shortness of breath [] Cardiovascular: No additional information not addressed in HPI [] GI: Denies abdominal pain, nausea, vomiting, bloody stools or diarrhea [] : Denies dysuria or hematuria [] Musculoskeletal: Denies back pain or joint pain [] Integument: Denies rash or skin lesions [] Neurologic: Denies headache, focal weakness or sensory changes [] Endocrine: Denies polyuria or polydipsia [] All other systems were reviewed and found to be within normal limits, except as documented in this note. Current Medications Current Medications Current Medications Medications (Trade) Dose Ordered Sig/Kenna Start Time Stop Time Status Last Admin Dose Admin Fentanyl Citrate (Fentanyl 2ml Vial) 50 mcg 1X ONCE 02/01/19 04:30 02/01/19 04:31 DC 02/01/19 04:05 50 MCG Allergies Allergies Allergies Coded Allergies Type Severity Reaction Last Updated Verified No Known Drug Allergies 12/15/16 No Physical Exam Physical Exam Constitutional: Well developed, well nourished, no acute distress, non-toxic appearance. [] HENT: Normocephalic, atraumatic, bilateral external ears normal, oropharynx moist, no oral exudates, nose normal. [] Eyes: PERRLA, EOMI, conjunctiva normal, no discharge. [] Neck: Normal range of motion, no tenderness, supple, no stridor. [] Cardiovascular:Heart rate regular rhythm, no murmur [] Lungs & Thorax: Bilateral breath sounds clear to auscultation [] Abdomen: Bowel sounds normal, soft, no tenderness, no masses, no pulsatile masses. [] Skin: Warm, dry, no erythema, no rash. [] Back: No tenderness, no CVA tenderness. [] Extremities: No tenderness, no cyanosis, no clubbing, ROM intact, no edema. [] Neurologic: Alert and oriented X 3, normal motor function, normal sensory function, no focal deficits noted. [] Psychologic: Affect normal, judgement normal, mood normal. [] Current Patient Data Vital Signs Vital Signs Date Time Temp Pulse Resp B/P (MAP) Pulse Ox O2 Delivery O2 Flow Rate FiO2 02/01/19 04:40 64 18 94 02/01/19 03:36 98.6 113/66 (82) Room Air 98.6 Lab Values Laboratory Tests Test 02/01/19 03:52 White Blood Count 5.9 x10^3/uL (4.0-11.0) Red Blood Count 3.67 x10^6/uL (4.30-5.70) L Hemoglobin 11.2 g/dL (13.0-17.5) L Hematocrit 33.5 % (39.0-53.0) L Mean Corpuscular Volume 91 fL (79-100) Mean Corpuscular Hemoglobin 31 pg (25-35) Mean Corpuscular Hemoglobin Concent 33 g/dL (31-37) Red Cell Distribution Width 15.5 % (11.5-14.5) H Platelet Count 255 x10^3/uL (140-400) Neutrophils (%) (Auto) 51 % (31-73) Lymphocytes (%) (Auto) 34 % (24-48) Monocytes (%) (Auto) 12 % (0-9) H Eosinophils (%) (Auto) 2 % (0-3) Basophils (%) (Auto) 1 % (0-3) Neutrophils # (Auto) 3.0 x10^3uL (1.8-7.7) Lymphocytes # (Auto) 2.0 x10^3/uL (1.0-4.8) Monocytes # (Auto) 0.7 x10^3/uL (0.0-1.1) Eosinophils # (Auto) 0.1 x10^3/uL (0.0-0.7) Basophils # (Auto) 0.1 x10^3/uL (0.0-0.2) Prothrombin Time 17.1 SEC (11.7-14.0) H Prothrombin Time INR 1.4 (0.8-1.1) H PTT 45 SEC (24-38) H Sodium Level 142 mmol/L (136-145) Potassium Level 4.0 mmol/L (3.5-5.1) Chloride Level 105 mmol/L (98-107) Carbon Dioxide Level 29 mmol/L (21-32) Anion Gap 8 (6-14) Blood Urea Nitrogen 21 mg/dL (8-26) Creatinine 0.6 mg/dL (0.7-1.3) L Estimated GFR (Cockcroft-Gault) 135.6 BUN/Creatinine Ratio 35 (6-20) H Glucose Level 123 mg/dL (70-99) H Calcium Level 9.0 mg/dL (8.5-10.1) Magnesium Level 1.9 mg/dL (1.8-2.4) Total Bilirubin 0.4 mg/dL (0.2-1.0) Aspartate Amino Transferase (AST) 19 U/L (15-37) Alanine Aminotransferase (ALT) 11 U/L (16-63) L Alkaline Phosphatase 55 U/L (46-116) Creatine Kinase 126 U/L (39-308) Creatine Kinase MB (Mass) 1.0 ng/mL (0.0-3.6) Creatine Kinase MB Relative Index 0.8 % (0-4) Troponin I Quantitative < 0.017 ng/mL (0.000-0.055) Total Protein 6.9 g/dL (6.4-8.2) Albumin 3.0 g/dL (3.4-5.0) L Albumin/Globulin Ratio 0.8 (1.0-1.7) L Laboratory Tests 02/01/19 03:52 Laboratory Tests 02/01/19 03:52 EKG EKG [] Radiology/Procedures Radiology/Procedures [] Course & Med Decision Making Course & Med Decision Making Pertinent Labs and Imaging studies reviewed. (See chart for details) [] Dragon Disclaimer Dragon Disclaimer This electronic medical record was generated, in whole or in part, using a voice recognition dictation system. Departure Departure Impression: Primary Impression: Fall Additional Impression: Hip pain, left Disposition: HOME, SELF-CARE (back to [facility]CF) Condition: STABLE Referrals: UNKNOWN PCP NAME (PCP) Patient Instructions: Fall Prevention and Home Safety, Ofub-xx-Urds, Hip Pain Scripts Hydrocodone/Apap 5-325 (NORCO 5-325 TABLET) 1 Each Tablet 1 TAB PO PRN Q6HRS PRN for PAIN, #20 TAB 0 Refills Prov: JERRI BAILEY DO 02/01/19 Problem Qualifiers Primary Impression: Fall Encounter type: initial encounter Qualified Codes: W19.XXXA - Unspecified fall, initial encounter JERRI BAILEY DO Feb 01, 2019 04:22
[2019-02-01] MEDS ORDERED: fentaNYL PF VIAL 100 MCG/2 ML VIAL IV ONE (04:30)
[2019-02-01 06:10] VITALS: BP 117/62
--- NOTE | 2019-02-01 07:40 | RAD ---
Pelvis with left hip, 3 views, 02/01/2019: HISTORY: Hip pain after a fall A linear lucency projected over the left pubic bone on one view is probably an overlying shadow. No definite fracture or dislocation is identified. There is mild narrowing of both hip joints with mild marginal spurring. Extensive arterial calcifications are present. IMPRESSION: No acute bony abnormality is detected. Electronically signed by: Carlo Sam MD (02/01/2019 7:37 AM) [facility]
== END 2019-02-01 06:20 | disposition home or self-care (01) ==
LOC: ER 03:36
DX: M25.552 Pain in left hip (principal); G89.11 Acute pain due to trauma; E78.00 Pure hypercholesterolemia, unspecified; I10 Essential (primary) hypertension; F03.90 Unspecified dementia, unspecified severity, without behavioral disturbance, psychotic disturbance, mood disturbance, and anxiety; G20 Parkinson's disease; F10.20 Alcohol dependence, uncomplicated; Y90.9 Presence of alcohol in blood, level not specified; F02.80 Dementia in other diseases classified elsewhere, unspecified severity, without behavioral disturbance, psychotic disturbance, mood disturbance, and anxiety; W18.39XA Other fall on same level, initial encounter; Y93.89 Activity, other specified; Y92.89 Other specified places as the place of occurrence of the external cause; Y99.8 Other external cause status
CPT/HCPCS: 36415; 73502; 80053; 82553; 83735; 84484; 85025; 85610; 85730; 96374; 99284; J3010

== ENCOUNTER 2019-02-19 11:23 | Inpatient (IN) | payer MEDICAID, OTHER ==
[~2019-02-19] VITALS: Ht 170.2 cm; Wt 77.6 kg
[~2019-02-19 11:23] MED LIST changes: +HYDR-3164 PO
--- NOTE | 2019-02-19 12:27 | PHYS DOC ---
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 Patient is in the ED with the daughter, the daughter states she was informed patient was sitting in a wheelchair having breakfast in the dining room, and he feel. Daughter states patient tends to wobble around in the wheel chair and and falls frequently. Daughter states she was informed patient hit his head on the ground when he feel. Daughter states patient is also Xarelto for DVT on the LLE. Patient has history of dementia and it somehow poor historian (CASSY RODAS APRN) Review of Systems Review of Systems Constitutional: Denies fever or chills [] Eyes: Denies change in visual acuity, redness, or eye pain [] HENT: Denies nasal congestion or sore throat [] Respiratory: Denies cough or shortness of breath [] Cardiovascular: No additional information not addressed in HPI [] GI: Denies abdominal pain, nausea, vomiting, bloody stools or diarrhea [] : Denies dysuria or hematuria [] Musculoskeletal: Denies back pain or joint pain [] Integument: Denies rash or skin lesions [] Neurologic: Reports falling and hitting head on the ground. Reports dementia Denies headache, focal weakness or sensory changes [] All other systems were reviewed and found to be within normal limits, except as documented in this note. (CASSY RODAS APRN) Current Medications Current Medications Current Medications Medications (Trade) Dose Ordered Sig/Kenna Start Time Stop Time Status Last Admin Dose Admin Sodium Chloride 1,000 ml @ 1,000 mls/hr 1X ONCE 02/19/19 13:45 02/19/19 14:44 DC 02/19/19 13:47 1,000 MLS/HR (ARLENE PARKS MD) Allergies Allergies Allergies Coded Allergies Type Severity Reaction Last Updated Verified No Known Drug Allergies 12/15/16 No (ARLENE PARKS MD) Physical Exam Physical Exam Constitutional: Well developed, well nourished, no acute distress, non-toxic appearance. [] HENT: Normocephalic,bilateral external ears normal, oropharynx moist, no oral exudates, nose normal. Bruising noted to the right forehead, right cheek, and just below the nasal floor. Small contusion noted to the right forehead. Eyes: PERRLA, EOMI, conjunctiva normal, no discharge. [] Neck: Normal range of motion, no tenderness, supple, no stridor. [] Cardiovascular:Heart rate regular rhythm, no murmur [] Lungs & Thorax: Bilateral breath sounds clear to auscultation [] Abdomen: Bowel sounds normal, soft, no tenderness, no masses, no pulsatile masses. [] Skin: Warm, dry, no erythema, no rash. [] Back: No tenderness, no CVA tenderness. [] Extremities: Left upper extremity is contracted from previous CVA, chronic edema noted to the left lower extremity, positive Homans sign [] Neurologic: Alert and oriented X 3, normal motor function, normal sensory function, no focal deficits noted. Cranial nerves II through XII intact Psychologic: Flat affect (MUTUNGA,CASSY GERMAN PROFESSOR) Current Patient Data Vital Signs Vital Signs Date Time Temp Pulse Resp B/P (MAP) Pulse Ox O2 Delivery O2 Flow Rate FiO2 02/19/19 16:12 72 20 93 02/19/19 16:10 98.7 129/72 (91) Room Air 98.7 (ARLENE PARKS MD) Lab Values Laboratory Tests Test 02/19/19 12:25 02/19/19 13:55 White Blood Count 10.9 x10^3/uL (4.0-11.0) Red Blood Count 4.27 x10^6/uL (4.30-5.70) L Hemoglobin 12.9 g/dL (13.0-17.5) L Hematocrit 39.1 % (39.0-53.0) Mean Corpuscular Volume 92 fL (79-100) Mean Corpuscular Hemoglobin 30 pg (25-35) Mean Corpuscular Hemoglobin Concent 33 g/dL (31-37) Red Cell Distribution Width 15.8 % (11.5-14.5) H Platelet Count 275 x10^3/uL (140-400) Neutrophils (%) (Auto) 71 % (31-73) Lymphocytes (%) (Auto) 12 % (24-48) L Monocytes (%) (Auto) 16 % (0-9) H Eosinophils (%) (Auto) 0 % (0-3) Basophils (%) (Auto) 1 % (0-3) Neutrophils # (Auto) 7.8 x10^3uL (1.8-7.7) H Lymphocytes # (Auto) 1.3 x10^3/uL (1.0-4.8) Monocytes # (Auto) 1.7 x10^3/uL (0.0-1.1) H Eosinophils # (Auto) 0.0 x10^3/uL (0.0-0.7) Basophils # (Auto) 0.1 x10^3/uL (0.0-0.2) Prothrombin Time 22.2 SEC (11.7-14.0) H Prothrombin Time INR 2.0 (0.8-1.1) H PTT 57 SEC (24-38) H Sodium Level 135 mmol/L (136-145) L Potassium Level 3.9 mmol/L (3.5-5.1) Chloride Level 100 mmol/L (98-107) Carbon Dioxide Level 26 mmol/L (21-32) Anion Gap 9 (6-14) Blood Urea Nitrogen 20 mg/dL (8-26) Creatinine 0.9 mg/dL (0.7-1.3) Estimated GFR (Cockcroft-Gault) 85.0 BUN/Creatinine Ratio 22 (6-20) H Glucose Level 96 mg/dL (70-99) Calcium Level 9.4 mg/dL (8.5-10.1) Magnesium Level 2.0 mg/dL (1.8-2.4) Total Bilirubin 0.6 mg/dL (0.2-1.0) Aspartate Amino Transferase (AST) 13 U/L (15-37) L Alanine Aminotransferase (ALT) 9 U/L (16-63) L Alkaline Phosphatase 45 U/L (46-116) L Creatine Kinase 94 U/L (39-308) Creatine Kinase MB (Mass) 1.6 ng/mL (0.0-3.6) Creatine Kinase MB Relative Index 1.7 % (0-4) Troponin I Quantitative < 0.017 ng/mL (0.000-0.055) IL-Ynq-W-Type Natriuretic Peptide 287 pg/mL (0-124) H Total Protein 8.2 g/dL (6.4-8.2) Albumin 3.8 g/dL (3.4-5.0) Albumin/Globulin Ratio 0.9 (1.0-1.7) L Urine Color Yellow Urine Clarity Clear Urine pH 7.0 Urine Specific [place] 1.025 Urine Protein Negative mg/dL (NEG-TRACE) Urine Glucose (UA) Negative mg/dL (NEG) Urine Ketones (Stick) Trace mg/dL (NEG) Urine Blood Negative (NEG) Urine Nitrite Negative (NEG) Urine Bilirubin Small (NEG) Urine Urobilinogen Dipstick 1.0 mg/dL (0.2 mg/dL) Urine Leukocyte Esterase Negative (NEG) Urine RBC 0 /HPF (0-2) Urine WBC 1-4 /HPF (0-4) Urine Squamous Epithelial Cells Occ /LPF Urine Bacteria 0 /HPF (0-FEW) Urine Mucus Mod /LPF Laboratory Tests 02/19/19 12:25 Laboratory Tests 02/19/19 12:25 (ARLENE PARKS MD) Lab Values Laboratory Tests Test 02/19/19 12:25 02/19/19 13:55 White Blood Count 10.9 x10^3/uL (4.0-11.0) Red Blood Count 4.27 x10^6/uL (4.30-5.70) L Hemoglobin 12.9 g/dL (13.0-17.5) L Hematocrit 39.1 % (39.0-53.0) Mean Corpuscular Volume 92 fL (79-100) Mean Corpuscular Hemoglobin 30 pg (25-35) Mean Corpuscular Hemoglobin Concent 33 g/dL (31-37) Red Cell Distribution Width 15.8 % (11.5-14.5) H Platelet Count 275 x10^3/uL (140-400) Neutrophils (%) (Auto) 71 % (31-73) Lymphocytes (%) (Auto) 12 % (24-48) L Monocytes (%) (Auto) 16 % (0-9) H Eosinophils (%) (Auto) 0 % (0-3) Basophils (%) (Auto) 1 % (0-3) Neutrophils # (Auto) 7.8 x10^3uL (1.8-7.7) H Lymphocytes # (Auto) 1.3 x10^3/uL (1.0-4.8) Monocytes # (Auto) 1.7 x10^3/uL (0.0-1.1) H Eosinophils # (Auto) 0.0 x10^3/uL (0.0-0.7) Basophils # (Auto) 0.1 x10^3/uL (0.0-0.2) Prothrombin Time 22.2 SEC (11.7-14.0) H Prothrombin Time INR 2.0 (0.8-1.1) H PTT 57 SEC (24-38) H Sodium Level 135 mmol/L (136-145) L Potassium Level 3.9 mmol/L (3.5-5.1) Chloride Level 100 mmol/L (98-107) Carbon Dioxide Level 26 mmol/L (21-32) Anion Gap 9 (6-14) Blood Urea Nitrogen 20 mg/dL (8-26) Creatinine 0.9 mg/dL (0.7-1.3) Estimated GFR (Cockcroft-Gault) 85.0 BUN/Creatinine Ratio 22 (6-20) H Glucose Level 96 mg/dL (70-99) Calcium Level 9.4 mg/dL (8.5-10.1) Magnesium Level 2.0 mg/dL (1.8-2.4) Total Bilirubin 0.6 mg/dL (0.2-1.0) Aspartate Amino Transferase (AST) 13 U/L (15-37) L Alanine Aminotransferase (ALT) 9 U/L (16-63) L Alkaline Phosphatase 45 U/L (46-116) L Creatine Kinase 94 U/L (39-308) Creatine Kinase MB (Mass) 1.6 ng/mL (0.0-3.6) Creatine Kinase MB Relative Index 1.7 % (0-4) Troponin I Quantitative < 0.017 ng/mL (0.000-0.055) WJ-Abi-D-Type Natriuretic Peptide 287 pg/mL (0-124) H Total Protein 8.2 g/dL (6.4-8.2) Albumin 3.8 g/dL (3.4-5.0) Albumin/Globulin Ratio 0.9 (1.0-1.7) L Urine Color Yellow Urine Clarity Clear Urine pH 7.0 Urine Specific [place] 1.025 Urine Protein Negative mg/dL (NEG-TRACE) Urine Glucose (UA) Negative mg/dL (NEG) Urine Ketones (Stick) Trace mg/dL (NEG) Urine Blood Negative (NEG) Urine Nitrite Negative (NEG) Urine Bilirubin Small (NEG) Urine Urobilinogen Dipstick 1.0 mg/dL (0.2 mg/dL) Urine Leukocyte Esterase Negative (NEG) Urine RBC 0 /HPF (0-2) Urine WBC 1-4 /HPF (0-4) Urine Squamous Epithelial Cells Occ /LPF Urine Bacteria 0 /HPF (0-FEW) Urine Mucus Mod /LPF Laboratory Tests 02/19/19 12:25 Laboratory Tests 02/19/19 12:25 (CASSY RODAS APRN) EKG EKG [address] Viveros sinus rhythm HR 81 no STEMI[] (CASSY RODAS APRN) Radiology/Procedures Radiology/Procedures PROCEDURE: VENOUS LOWER EXTREMITY LEFT Left lower extremity venous doppler ultrasound History: History of DVT, on blood thinner, IVC filter Comparison: None available Findings: Multiple grayscale, color, and duplex spectral analysis sonographic images were acquired of the left lower extremity veins to evaluate for the presence of DVT. There is a small focus of nonocclusive thrombus of the left common femoral vein. There is more extensive nonocclusive thrombus throughout the left superficial femoral vein extending to the popliteal vein as well as anterior peroneal vein. Posterior tibial veins could not be visualized on this exam. There is edema of the soft tissues. Impression: 1. There is extensive nonocclusive thrombus from the left common femoral vein to the calf veins. FOR INTERNAL CODING PURPOSES Critical result: Findings discussed with CASSY RODAS at 02/19/2019 2:48 PM. RESULT CODE: (C) Electronically signed by: Hilda Chaney MD (02/19/2019 2:49 PM) [id number] DICTATED and SIGNED BY: HILDA CHANEY MD DATE: 02/19/19 1449 PROCEDURE: PORTABLE CHEST 1V PORTABLE CHEST 1V Clinical indications: FALL TODAY pain. Findings: No acute lung infiltrate or pleural effusion or pulmonary edema or lung mass or pneumothorax is seen. The heart size, pulmonary vasculature, mediastinum and both chavo are unremarkable. There is a nondisplaced fracture of the lateral aspect of the right ninth rib. Impression: Nondisplaced fracture of the lateral aspect of the right ninth rib. Electronically signed by: Armando Longo MD (02/19/2019 12:23 PM) [id number] DICTATED and SIGNED BY: ARMANDO LONGO MD DATE: 02/19/19 1223 PROCEDURE: CT HEAD AND CERVICAL SPINE WO CT of the head without contrast, 02/19/2019: HISTORY: Fall Comparison is made to a study from 01/09/2019. Postcraniotomy changes are again noted in the right frontal region laterally. There is an unchanged large area of encephalomalacia in the right basal ganglia extending into the right frontotemporal region. There is an unchanged extra-axial low density fluid collection over the right frontal lobe compatible with a chronic subdural hematoma/hygroma. It measures approximately 1.2 cm in width. The ventricles are enlarged but unchanged. There is no shift of the midline structures. There is no evidence of acute intracranial hemorrhage. There is mucosal thickening in the paranasal sinuses, greatest on the left in the ethmoid, maxillary and frontal sinuses. An air-fluid level is present in the left maxillary sinus. These findings are likely on an inflammatory basis. IMPRESSION: 1. Unchanged encephalomalacia in the right basal ganglia extending into the right frontotemporal regions. 2. Small chronic subdural hematoma/hygroma in the right frontal region. 3. Unchanged hydrocephalus. 4. No acute intracranial abnormality is detected. 5. Paranasal sinusitis. CT of the cervical spine without contrast, 02/19/2019: Noncontrast scans were obtained with multiplanar reconstructions produced. There is considerable disc space narrowing and marginal spurring at C5-6 and C6-7 with moderate to severe associated bilateral foraminal narrowing. The posterior disc margins are not clearly defined at these levels. There appears to be mild underlying central spinal stenosis at C5-6 and C6-7. At C3-4 there is a moderate posterior disc herniation centered near the midline with mild underlying central spinal stenosis. There are moderate hypertrophic degenerative changes involving multiple facet joints bilaterally. No acute fracture or dislocation is identified. There is moderate calcific plaquing at both carotid bifurcations. IMPRESSION: 1. Moderate multilevel degenerative change as described above. 2. No acute bony abnormality is detected. PQRS Compliance Statement: One or more of the following individualized dose reduction techniques were utilized for this examination: 1. Automated exposure control 2. Adjustment of the mA and/or kV according to patient size 3. Use of iterative reconstruction technique Electronically signed by: Jb Sam MD (02/19/2019 1:34 PM) [facility] DICTATED and SIGNED BY: JB SAM MD DATE: 02/19/19 5351 PROCEDURE: CT MAXILLOFACIAL WO CONTRAST CT of the facial bones without contrast, 02/19/2019: HISTORY: Fall, injury Noncontrast scans were obtained with multiplanar reconstructions produced. No fracture is identified. The orbital contents are unremarkable. There is moderate mucosal thickening in the left maxillary sinus with an air-fluid level. There is partial opacification of the left ethmoid and frontal sinuses. Minimal mucosal thickening is present in the left sphenoid, right maxillary and ethmoid sinuses. IMPRESSION: 1. No acute bony abnormality is detected. 2. Moderate paranasal sinusitis, moreso on the left. PQRS Compliance Statement: One or more of the following individualized dose reduction techniques were utilized for this examination: 1. Automated exposure control 2. Adjustment of the mA and/or kV according to patient size 3. Use of iterative reconstruction technique Electronically signed by: Jb Sam MD (02/19/2019 1:48 PM) [facility] DICTATED and SIGNED BY: JB SAM MD DATE: 02/19/19 1692 (CASSY RODAS APRN) Course & Med Decision Making Course & Med Decision Making Pertinent Labs and Imaging studies reviewed. (See chart for details) This is a 63-year-old male patient presenting to the ED today to be evaluated after falling off his wheelchair in a residential. No loss of consciousness. Patient hit his head on the ground. CT of the head and cervical spine was noted for chronic subdural hematoma. CT of maxillary facial was negative for any acute findings. Chest x-ray noted for-nondisplaced fracture of the lateral aspect of the right ninth rib. Labs are negative for any acute findings, venous Doppler of the left lower extremity was noted for an extensive nonocclusive thrombus from the left common femoral vein to the calf veins. Patient is already Xarelto. Spoke with Dr. Holbrook. He requested we consult a earth sciences professor which was done, consult interventional radiology which was done. Patient was admitted. (CASSY RODAS APRN) Course & Med Decision Making Staff Physician Addendum: I was working in the ER during the course of this patient's visit. I was available for consultation as needed, but I was not directly involved in the care of this patient. (ARLENE PARKS MD) Dragon Disclaimer Dragon Disclaimer This electronic medical record was generated, in whole or in part, using a voice recognition dictation system. (CASSY RODAS APRN) Departure Departure Impression: Primary Impression: Left leg DVT Additional Impressions: Fall Right rib fracture Forehead contusion Disposition: ADMITTED INPATIENT Condition: STABLE Referrals: UNKNOWN PCP NAME (PCP) Problem Qualifiers Primary Impression: Left leg DVT Affected thrombotic vein of extremity: femoral Chronicity: chronic Qualified Codes: I82.512 - Chronic embolism and thrombosis of left femoral vein Additional Impressions: Fall Encounter type: initial encounter Qualified Codes: W19.XXXA - Unspecified fall, initial encounter Right rib fracture Encounter type: initial encounter Rib fracture type: single rib Fracture type: closed Qualified Codes: S22.31XA - Fracture of one rib, right side, initial encounter for closed fracture Forehead contusion Encounter type: initial encounter Qualified Codes: S00.83XA - Contusion of other part of head, initial encounter CASSY RODAS APRN Feb 19, 2019 12:27 ARLENE PARKS MD Feb 21, 2019 04:08
[2019-02-19 12:37] LABS: BASO # 0.1 x10^3/uL (0.0-0.2); BASO % 1 % (0-3); EOS % 0 % (0-3); HEMATOCRIT 39.1 % (39.0-53.0); HEMOGLOBIN 12.9 g/dL (13.0-17.5); LYMPH # 1.3 x10^3/uL (1.0-4.8); LYMPH % 12 % (24-48); MEAN CORPUSCULAR HEMOGLOBIN 30 pg (25-35); MEAN CORPUSCULAR HGB CONC 33 g/dL (31-37); MEAN CORPUSCULAR VOLUME 92 fL (79-100); MONO # 1.7 x10^3/uL (0.0-1.1); MONO % 16 % (0-9); NEUT # 7.8 x10^3uL (1.8-7.7); NEUT % 71 % (31-73); PLATELET COUNT 275 x10^3/uL (140-400); RED BLOOD COUNT 4.27 x10^6/uL (4.30-5.70); RED CELL DISTRIBUTION WIDTH 15.8 % (11.5-14.5); WHITE BLOOD COUNT 10.9 x10^3/uL (4.0-11.0)
[2019-02-19 12:53] LABS: PROTHROMBIN TIME PATIENT 22.2 SEC (11.7-14.0)
[2019-02-19 12:57] LABS: CALCIUM 9.4 mg/dL (8.5-10.1); CREATININE 0.9 mg/dL (0.7-1.3); POTASSIUM 3.9 mmol/L (3.5-5.1)
[2019-02-19 13:03] LABS: ALBUMIN 3.8 g/dL (3.4-5.0); ALBUMIN/GLOBULIN RATIO 0.9 (1.0-1.7); TOTAL BILIRUBIN 0.6 mg/dL (0.2-1.0); TOTAL PROTEIN 8.2 g/dL (6.4-8.2)
--- NOTE | 2019-02-19 13:21 | EKG ---
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
--- NOTE | 2019-02-19 13:37 | RAD ---
CT of the head without contrast, 02/19/2019: HISTORY: Fall Comparison is made to a study from 01/09/2019. Postcraniotomy changes are again noted in the right frontal region laterally. There is an unchanged large area of encephalomalacia in the right basal ganglia extending into the right frontotemporal region. There is an unchanged extra-axial low density fluid collection over the right frontal lobe compatible with a chronic subdural hematoma/hygroma. It measures approximately 1.2 cm in width. The ventricles are enlarged but unchanged. There is no shift of the midline structures. There is no evidence of acute intracranial hemorrhage. There is mucosal thickening in the paranasal sinuses, greatest on the left in the ethmoid, maxillary and frontal sinuses. An air-fluid level is present in the left maxillary sinus. These findings are likely on an inflammatory basis. IMPRESSION: 1. Unchanged encephalomalacia in the right basal ganglia extending into the right frontotemporal regions. 2. Small chronic subdural hematoma/hygroma in the right frontal region. 3. Unchanged hydrocephalus. 4. No acute intracranial abnormality is detected. 5. Paranasal sinusitis. CT of the cervical spine without contrast, 02/19/2019: Noncontrast scans were obtained with multiplanar reconstructions produced. There is considerable disc space narrowing and marginal spurring at C5-6 and C6-7 with moderate to severe associated bilateral foraminal narrowing. The posterior disc margins are not clearly defined at these levels. There appears to be mild underlying central spinal stenosis at C5-6 and C6-7. At C3-4 there is a moderate posterior disc herniation centered near the midline with mild underlying central spinal stenosis. There are moderate hypertrophic degenerative changes involving multiple facet joints bilaterally. No acute fracture or dislocation is identified. There is moderate calcific plaquing at both carotid bifurcations. IMPRESSION: 1. Moderate multilevel degenerative change as described above. 2. No acute bony abnormality is detected. PQRS Compliance Statement: One or more of the following individualized dose reduction techniques were utilized for this examination: 1. Automated exposure control 2. Adjustment of the mA and/or kV according to patient size 3. Use of iterative reconstruction technique Electronically signed by: Carlo Sam MD (02/19/2019 1:34 PM) [facility]
[2019-02-19] MEDS ORDERED: IV NORMAL SALINE 1000ML BAG 1,000 ML IV ONE (13:45)
--- NOTE | 2019-02-19 13:52 | RAD ---
CT of the facial bones without contrast, 02/19/2019: HISTORY: Fall, injury Noncontrast scans were obtained with multiplanar reconstructions produced. No fracture is identified. The orbital contents are unremarkable. There is moderate mucosal thickening in the left maxillary sinus with an air-fluid level. There is partial opacification of the left ethmoid and frontal sinuses. Minimal mucosal thickening is present in the left sphenoid, right maxillary and ethmoid sinuses. IMPRESSION: 1. No acute bony abnormality is detected. 2. Moderate paranasal sinusitis, moreso on the left. PQRS Compliance Statement: One or more of the following individualized dose reduction techniques were utilized for this examination: 1. Automated exposure control 2. Adjustment of the mA and/or kV according to patient size 3. Use of iterative reconstruction technique Electronically signed by: Carlo Sam MD (02/19/2019 1:48 PM) [facility]
[2019-02-19 14:04] LABS: BILIRUBIN,URINE SMALL (NEG); CLARITY,URINE CLEAR; COLOR,URINE YELLOW; NITRITE,URINE NEGATIVE (NEG); PROTEIN,URINE NEGATIVE (NEG-TRACE)
[2019-02-19 14:11] LABS: BACTERIA,URINE 0 /HPF (0-FEW); RBC,URINE 0 /HPF (0-2); SQUAMOUS EPITHELIAL CELL,UR OCC /LPF
--- NOTE | 2019-02-19 14:52 | RAD ---
Left lower extremity venous doppler ultrasound History: History of DVT, on blood thinner, IVC filter Comparison: None available Findings: Multiple grayscale, color, and duplex spectral analysis sonographic images were acquired of the left lower extremity veins to evaluate for the presence of DVT. There is a small focus of nonocclusive thrombus of the left common femoral vein. There is more extensive nonocclusive thrombus throughout the left superficial femoral vein extending to the popliteal vein as well as anterior peroneal vein. Posterior tibial veins could not be visualized on this exam. There is edema of the soft tissues. Impression: 1. There is extensive nonocclusive thrombus from the left common femoral vein to the calf veins. FOR INTERNAL CODING PURPOSES Critical result: Findings discussed with CASSY RODAS at 02/19/2019 2:48 PM. RESULT CODE: (C) Electronically signed by: Blaine Herrera MD (02/19/2019 2:49 PM) [id number]
[2019-02-19 16:10] VITALS: BP 129/72
[2019-02-19] MEDS ORDERED: ACETAMINOPHEN 325 MG TABLET. PO PRN (16:30)
[2019-02-19] MEDS ORDERED: ONDANSETRON PF 4 MG/2 ML VIAL. IV PRN (16:30)
[2019-02-19] MEDS ORDERED: MORPHINE SULFATE 2 MG/ML VIAL. IV PRN (16:30)
--- NOTE | 2019-02-19 16:42 | PDOC1 ---
History and Physical Date of Admission Date of Admission DATE: 02/19/19 TIME: 16:41 Identification/Chief Complaint Chief Complaint SEEN IN ER, 63 year old male with history of hypertension, high cholesterol, left-sided weakness from CVA, who presents to the ED today to be evaluated status post falling off a wheelchair in a group home. Patient is in the ED with the daughter, the daughter states she was informed patient was sitting in a wheelchair having breakfast in the dining room, and he fell. TODAY, She is concerned left leg now very swollen Past Medical History Past Medical History Past Medical History Past Medical History: Anxiety, Dementia, High Cholesterol, Hypertension, Other Additional Past Medical Histor: ALCOHOL ABUSE, "TBI", PARKINSON'S, MDD Past Surgical History: Other Additional Past Surgical Histo: "BACK SURGERY" Alcohol Use: Heavy REMOTE Drug Use: None Cardiovascular: HTN, Hyperlipidemia Pulmonary: COPD CENTRAL NERVOUS SYSTEM: CVA, Dementia, Other GI: No pertinent hx Heme/Onc: No pertinent hx Hepatobiliary: No pertinent hx Psych: Anxiety, Addictions, Depression Rheumatologic: No pertinent hx Infectious disease: Other Renal/: No pertinent hx Endocrine: No pertinent hx Past Surgical History Past Surgical History: Other Family History Family History: No Significant Social History Smoke: No ALCOHOL: none Drugs: None Current Problem List Problem List Problems Medical Problems: (1) Fall Status: Acute (2) Forehead contusion Status: Acute (3) Left leg DVT Status: Acute (4) Right rib fracture Status: Acute Current Medications Current Medications Current Medications Sodium Chloride 1,000 ml @ 1,000 mls/hr 1X ONCE IV Last administered on at 13:47; Start 02/19/19 at 13:45; Stop 02/19/19 at 14:44; Status DC Ondansetron HCl (Zofran) 4 mg PRN Q8HRS PRN IV NAUSEA/VOMITING; Start 02/19/19 at 16:30; Stop 02/20/19 at 16:29 Morphine Sulfate (Morphine Sulfate) 2 mg PRN Q2HR PRN IV PAIN; Start 02/19/19 at 16:30; Stop 02/20/19 at 16:29 Acetaminophen (Tylenol) 650 mg PRN Q4HRS PRN PO FEVER; Start 02/19/19 at 16:30 ; Stop 02/20/19 at 16:29 Active Scripts Active Hackberry 5-325 Tablet (Acetaminophen/Hydrocodone Bitart) 1 Each Tablet 1 Tab PO PRN Q6HRS PRN Xarelto (Rivaroxaban) 20 Mg Tablet 20 Mg PO DAILY 30 Days Xarelto (Rivaroxaban) 15 Mg Tablet 15 Mg PO BIDWMEALS 21 Days Reported Tylenol (Acetaminophen) 325 Mg Tablet 2 Tab PO Q6HRS Gabapentin (Gabapentin) 100 Mg Capsule 100 Mg PO TID Refresh Optive Eye Drops (Carboxymethylcellulos/Glycerin) 15 Ml Drops 1 Drop EACHEYE TID Nystatin 15 Gm Cream..g. 1 Anisa TP TID Sinemet 25-100 Mg Tablet (Carbidopa/Levodopa) 1 Each Tablet 1 Tab PO TID Baclofen 10 Mg Tablet 10 Mg PO QID Senna (Sennosides) 8.6 Mg Tablet 8.6 Mg PO HS Atorvastatin Calcium 20 Mg Tablet 20 Mg PO HS PRN Donepezil Hcl 5 Mg Tablet 5 Mg PO HS Vitamin D3 (Cholecalciferol (Vitamin D3)) 1,000 Unit Tablet 2 Tab PO DAILY Zoloft (Sertraline Hcl) 100 Mg Tablet 1 Tab PO DAILY Multivitamins (Multivitamin) 1 Each Tablet 1 Tab PO DAILY Benazepril Hcl 40 Mg Tablet 1 Tab PO DAILY Amlodipine Besylate 5 Mg Tablet 5 Mg PO DAILY Allergies Allergies: Coded Allergies: No Known Drug Allergies (Unverified , 12/15/16) ROS Review of System Review of Systems Review of Systems Constitutional: Denies fever or chills [] Eyes: Denies change in visual acuity, redness, or eye pain [] HENT: Denies nasal congestion or sore throat [] Respiratory: Denies cough or shortness of breath [] Cardiovascular: No additional information not addressed in HPI [] GI: Denies abdominal pain, nausea, vomiting, bloody stools or diarrhea [] : Denies dysuria or hematuria [] Musculoskeletal: Denies back pain or joint pain [] Integument: Denies rash or skin lesions [] Neurologic: Reports falling and hitting head on the floor. Reports dementia Denies headache, focal weakness or sensory changes [] 14 pt systems were reviewed and found to be within normal limits, except as documented General: YES: Fatigue PSYCHOLOGICAL ROS: YES: Disorientation Hematological and Lymphatic: YES: Blood Clots Musculoskeletal: Yes Gait Disturbance, Yes Joint Stiffness Vitals Vitals Vital Signs Date Time Temp Pulse Resp B/P (MAP) Pulse Ox O2 Delivery O2 Flow Rate FiO2 02/19/19 11:29 98.1 83 16 101/61 (74) 94 Room Air 98.1 Labs Labs Laboratory Tests Test 02/19/19 12:25 02/19/19 13:55 White Blood Count 10.9 x10^3/uL (4.0-11.0) Red Blood Count 4.27 x10^6/uL (4.30-5.70) Hemoglobin 12.9 g/dL (13.0-17.5) Hematocrit 39.1 % (39.0-53.0) Mean Corpuscular Volume 92 fL (79-100) Mean Corpuscular Hemoglobin 30 pg (25-35) Mean Corpuscular Hemoglobin Concent 33 g/dL (31-37) Red Cell Distribution Width 15.8 % (11.5-14.5) Platelet Count 275 x10^3/uL (140-400) Neutrophils (%) (Auto) 71 % (31-73) Lymphocytes (%) (Auto) 12 % (24-48) Monocytes (%) (Auto) 16 % (0-9) Eosinophils (%) (Auto) 0 % (0-3) Basophils (%) (Auto) 1 % (0-3) Neutrophils # (Auto) 7.8 x10^3uL (1.8-7.7) Lymphocytes # (Auto) 1.3 x10^3/uL (1.0-4.8) Monocytes # (Auto) 1.7 x10^3/uL (0.0-1.1) Eosinophils # (Auto) 0.0 x10^3/uL (0.0-0.7) Basophils # (Auto) 0.1 x10^3/uL (0.0-0.2) Prothrombin Time 22.2 SEC (11.7-14.0) Prothromb Time International Ratio 2.0 (0.8-1.1) Activated Partial Thromboplast Time 57 SEC (24-38) Sodium Level 135 mmol/L (136-145) Potassium Level 3.9 mmol/L (3.5-5.1) Chloride Level 100 mmol/L (98-107) Carbon Dioxide Level 26 mmol/L (21-32) Anion Gap 9 (6-14) Blood Urea Nitrogen 20 mg/dL (8-26) Creatinine 0.9 mg/dL (0.7-1.3) Estimated GFR (Cockcroft-Gault) 85.0 BUN/Creatinine Ratio 22 (6-20) Glucose Level 96 mg/dL (70-99) Calcium Level 9.4 mg/dL (8.5-10.1) Magnesium Level 2.0 mg/dL (1.8-2.4) Total Bilirubin 0.6 mg/dL (0.2-1.0) Aspartate Amino Transf (AST/SGOT) 13 U/L (15-37) Alanine Aminotransferase (ALT/SGPT) 9 U/L (16-63) Alkaline Phosphatase 45 U/L (46-116) Creatine Kinase 94 U/L (39-308) Creatine Kinase MB (Mass) 1.6 ng/mL (0.0-3.6) Creatine Kinase MB Relative Index 1.7 % (0-4) Troponin I Quantitative < 0.017 ng/mL (0.000-0.055) ZF-Uot-N-Type Natriuretic Peptide 287 pg/mL (0-124) Total Protein 8.2 g/dL (6.4-8.2) Albumin 3.8 g/dL (3.4-5.0) Albumin/Globulin Ratio 0.9 (1.0-1.7) Urine Color Yellow Urine Clarity Clear Urine pH 7.0 Urine Specific [place] 1.025 Urine Protein Negative mg/dL (NEG-TRACE) Urine Glucose (UA) Negative mg/dL (NEG) Urine Ketones (Stick) Trace mg/dL (NEG) Urine Blood Negative (NEG) Urine Nitrite Negative (NEG) Urine Bilirubin Small (NEG) Urine Urobilinogen Dipstick 1.0 mg/dL (0.2 mg/dL) Urine Leukocyte Esterase Negative (NEG) Urine RBC 0 /HPF (0-2) Urine WBC 1-4 /HPF (0-4) Urine Squamous Epithelial Cells Occ /LPF Urine Bacteria 0 /HPF (0-FEW) Urine Mucus Mod /LPF Laboratory Tests Test 02/19/19 12:25 02/19/19 13:55 White Blood Count 10.9 x10^3/uL (4.0-11.0) Red Blood Count 4.27 x10^6/uL (4.30-5.70) Hemoglobin 12.9 g/dL (13.0-17.5) Hematocrit 39.1 % (39.0-53.0) Mean Corpuscular Volume 92 fL (79-100) Mean Corpuscular Hemoglobin 30 pg (25-35) Mean Corpuscular Hemoglobin Concent 33 g/dL (31-37) Red Cell Distribution Width 15.8 % (11.5-14.5) Platelet Count 275 x10^3/uL (140-400) Neutrophils (%) (Auto) 71 % (31-73) Lymphocytes (%) (Auto) 12 % (24-48) Monocytes (%) (Auto) 16 % (0-9) Eosinophils (%) (Auto) 0 % (0-3) Basophils (%) (Auto) 1 % (0-3) Neutrophils # (Auto) 7.8 x10^3uL (1.8-7.7) Lymphocytes # (Auto) 1.3 x10^3/uL (1.0-4.8) Monocytes # (Auto) 1.7 x10^3/uL (0.0-1.1) Eosinophils # (Auto) 0.0 x10^3/uL (0.0-0.7) Basophils # (Auto) 0.1 x10^3/uL (0.0-0.2) Prothrombin Time 22.2 SEC (11.7-14.0) Prothromb Time International Ratio 2.0 (0.8-1.1) Activated Partial Thromboplast Time 57 SEC (24-38) Sodium Level 135 mmol/L (136-145) Potassium Level 3.9 mmol/L (3.5-5.1) Chloride Level 100 mmol/L (98-107) Carbon Dioxide Level 26 mmol/L (21-32) Anion Gap 9 (6-14) Blood Urea Nitrogen 20 mg/dL (8-26) Creatinine 0.9 mg/dL (0.7-1.3) Estimated GFR (Cockcroft-Gault) 85.0 BUN/Creatinine Ratio 22 (6-20) Glucose Level 96 mg/dL (70-99) Calcium Level 9.4 mg/dL (8.5-10.1) Magnesium Level 2.0 mg/dL (1.8-2.4) Total Bilirubin 0.6 mg/dL (0.2-1.0) Aspartate Amino Transf (AST/SGOT) 13 U/L (15-37) Alanine Aminotransferase (ALT/SGPT) 9 U/L (16-63) Alkaline Phosphatase 45 U/L (46-116) Creatine Kinase 94 U/L (39-308) Creatine Kinase MB (Mass) 1.6 ng/mL (0.0-3.6) Creatine Kinase MB Relative Index 1.7 % (0-4) Troponin I Quantitative < 0.017 ng/mL (0.000-0.055) NP-Krb-Y-Type Natriuretic Peptide 287 pg/mL (0-124) Total Protein 8.2 g/dL (6.4-8.2) Albumin 3.8 g/dL (3.4-5.0) Albumin/Globulin Ratio 0.9 (1.0-1.7) Urine Color Yellow Urine Clarity Clear Urine pH 7.0 Urine Specific [place] 1.025 Urine Protein Negative mg/dL (NEG-TRACE) Urine Glucose (UA) Negative mg/dL (NEG) Urine Ketones (Stick) Trace mg/dL (NEG) Urine Blood Negative (NEG) Urine Nitrite Negative (NEG) Urine Bilirubin Small (NEG) Urine Urobilinogen Dipstick 1.0 mg/dL (0.2 mg/dL) Urine Leukocyte Esterase Negative (NEG) Urine RBC 0 /HPF (0-2) Urine WBC 1-4 /HPF (0-4) Urine Squamous Epithelial Cells Occ /LPF Urine Bacteria 0 /HPF (0-FEW) Urine Mucus Mod /LPF Images Images CT of the head without contrast, 02/19/2019: HISTORY: Fall Comparison is made to a study from 01/09/2019. Postcraniotomy changes are again noted in the right frontal region laterally. There is an unchanged large area of encephalomalacia in the right basal ganglia extending into the right frontotemporal region. There is an unchanged extra-axial low density fluid collection over the right frontal lobe compatible with a chronic subdural hematoma/hygroma. It measures approximately 1.2 cm in width. The ventricles are enlarged but unchanged. There is no shift of the midline structures. There is no evidence of acute intracranial hemorrhage. There is mucosal thickening in the paranasal sinuses, greatest on the left in the ethmoid, maxillary and frontal sinuses. An air-fluid level is present in the left maxillary sinus. These findings are likely on an inflammatory basis. IMPRESSION: 1. Unchanged encephalomalacia in the right basal ganglia extending into the right frontotemporal regions. 2. Small chronic subdural hematoma/hygroma in the right frontal region. 3. Unchanged hydrocephalus. 4. No acute intracranial abnormality is detected. 5. Paranasal sinusitis. CT of the cervical spine without contrast, 02/19/2019: Noncontrast scans were obtained with multiplanar reconstructions produced. There is considerable disc space narrowing and marginal spurring at C5-6 and C6-7 with moderate to severe associated bilateral foraminal narrowing. The posterior disc margins are not clearly defined at these levels. There appears to be mild underlying central spinal stenosis at C5-6 and C6-7. At C3-4 there is a moderate posterior disc herniation centered near the midline with mild underlying central spinal stenosis. There are moderate hypertrophic degenerative changes involving multiple facet joints bilaterally. No acute fracture or dislocation is identified. There is moderate calcific plaquing at both carotid bifurcations. IMPRESSION: 1. Moderate multilevel degenerative change as described above. 2. No acute bony abnormality is detected. PQRS Compliance Statement: REASON: hx of DVT on blood thinner PROCEDURE: VENOUS LOWER EXTREMITY LEFT Left lower extremity venous doppler ultrasound History: History of DVT, on blood thinner, IVC filter Comparison: None available Findings: Multiple grayscale, color, and duplex spectral analysis sonographic images were acquired of the left lower extremity veins to evaluate for the presence of DVT. There is a small focus of nonocclusive thrombus of the left common femoral vein. There is more extensive nonocclusive thrombus throughout the left superficial femoral vein extending to the popliteal vein as well as anterior peroneal vein. Posterior tibial veins could not be visualized on this exam. There is edema of the soft tissues. Impression: 1. There is extensive nonocclusive thrombus from the left common femoral vein to the calf veins. VTE Prophylaxis Ordered VTE Prophylaxis Devices: Contraindicated VTE Pharmacological Prophylaxi: Yes Assessment/Plan Assessment/Plan impression extensive nonocclusive thrombus from the left common femoral vein to the calf veins. Left leg swelling - confirmed DVT on doppler Subdural hematoma - does appear chronic from 2 years ago. 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, There is considerable disc space narrowing and marginal spurring at C5-6 and C6-7 with moderate to severe associated bilateral foraminal narrowing. The posterior disc margins are not clearly defined at these levels. There appears to be mild underlying central spinal stenosis at C5-6 and C6-7. At C3-4 there is a moderate posterior disc herniation centered near the midline with mild underlying central spinal stenosis. There are moderate hypertrophic degenerative changes involving multiple facet joints bilaterally. No acute fracture or dislocation is identified. Unchanged encephalomalacia in the right basal ganglia extending into the right frontotemporal regions. Small chronic subdural hematoma/hygroma in the right frontal region. Unchanged hydrocephalus. No acute intracranial abnormality is detected.on ct head today Paranasal sinusitis. plan IR CONSULT [facility] SURGERY CONSULT ADMIT CONTINUE XARELTO for now home meds tele neurochecks q 4 hrs fall precautions 72 min pt exam, chart review, > 50% of time spent with exam, chart review, pt care coordination MIKE YE MD Feb 19, 2019 16:42
[2019-02-19] MEDS ORDERED: RIVA20TA2 PO (18:47)
[2019-02-19] MEDS ORDERED: DIVA500T4 PO (18:47)
[2019-02-19] MEDS ORDERED: DICL100G18 TP (18:47)
[2019-02-19 19:15] VITALS: BP 109/67
[2019-02-19] MEDS ORDERED: POLYVINYL ALCOHOL 1.4% OPHTH SOLUTION 15ML BOTTLE. OU PRN (20:00)
[2019-02-19] MEDS ORDERED: ATORVASTATIN CALCIUM 20 MG TABLET PO PRN (20:00)
[2019-02-19] MEDS ORDERED: ANTI-COAG MONITOR BY PHARMACY. MC PRN (20:00)
[2019-02-19] MEDS: NYSTATIN 100,000 UNIT/GM TOPICAL CREAM 15GM TUBE. TP SCH ×2 (21:00→21:42)
[2019-02-19] MEDS ORDERED: RIVAROXABAN 10 MG TABLET. PO SCH (21:00)
[2019-02-19] MEDS: DIVALPROEX EXTENDED RELEASE 500 MG TAB.ER.24H. PO SCH (21:42)
[2019-02-19] MEDS: CARBIDOPA/LEVODOPA 25/100MG TABLET PO SCH (21:42)
[2019-02-19] MEDS: SENNOSIDES 8.6 MG TABLET PO SCH (21:42)
[2019-02-19] MEDS: DONEPEZIL HCL 5 MG TABLET. PO SCH (21:42)
[2019-02-19] MEDS: GABAPENTIN 300 MG CAPSULE. PO SCH (21:42)
[2019-02-19] MEDS: BACLOFEN 10 MG TABLET. PO SCH (21:42)
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
[2019-02-19 23:26] VITALS: BP 102/60
[2019-02-19] MEDS: ACETAMINOPHEN 325 MG TABLET. PO SCH (23:59)
[2019-02-20] VITALS (7 sets, daily range): BP systolic 88–159; BP diastolic 53–78
[2019-02-20] MEDS: ACETAMINOPHEN 325 MG TABLET. PO SCH ×4 (06:00→23:37)
--- NOTE | 2019-02-20 06:01 | NUR ---
Pt refused navarro tylenol stating, "Leave me alone asshole. I'm thirsty, I don't want any fucking medicine". Water was administered to pt and this nurse will continue to monitor.
--- NOTE | 2019-02-20 08:04 | PDOC ---
Provider Note Provider Note IR NOTE Consulted for possible IVC filter placement. Patient already has IVC filter in place. Can bee seen on yesterdays chest radiograph. VANI BARRIOS MD Feb 20, 2019 08:04
[2019-02-20] MEDS: amLODIPine BESYLATE 5 MG TABLET PO SCH (09:00)
[2019-02-20] MEDS: NYSTATIN 100,000 UNIT/GM TOPICAL CREAM 15GM TUBE. TP SCH ×3 (09:00→20:37)
--- NOTE | 2019-02-20 09:33 | PDOC ---
PROGRESS NOTES Chief Complaint Chief Complaint s/p fall from wheelchair at residential with sustained rib fracture extensive nonocclusive thrombus from the left common femoral vein to the calf veins, s/p IVC filter placed. consult vasc surgery. continue xarelto for now. risk of bleeding explained to patient and . Left leg swelling - confirmed DVT on doppler Subdural hematoma - does appear chronic from 2 years ago. 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, Hx of Parkinsons type symptoms INR 2.0--secondary to xarelto neurochecks q 4 hrs fall precautions back to [place] once medically stable Vitals Vitals Vital Signs Date Time Temp Pulse Resp B/P (MAP) Pulse Ox O2 Delivery O2 Flow Rate FiO2 02/20/19 07:00 98.2 69 20 100/62 (75) 96 Room Air 98.2 Physical Exam Lungs: Clear Labs LABS Laboratory Tests Test 02/19/19 12:25 02/19/19 13:55 White Blood Count 10.9 x10^3/uL (4.0-11.0) Red Blood Count 4.27 x10^6/uL (4.30-5.70) Hemoglobin 12.9 g/dL (13.0-17.5) Hematocrit 39.1 % (39.0-53.0) Mean Corpuscular Volume 92 fL (79-100) Mean Corpuscular Hemoglobin 30 pg (25-35) Mean Corpuscular Hemoglobin Concent 33 g/dL (31-37) Red Cell Distribution Width 15.8 % (11.5-14.5) Platelet Count 275 x10^3/uL (140-400) Neutrophils (%) (Auto) 71 % (31-73) Lymphocytes (%) (Auto) 12 % (24-48) Monocytes (%) (Auto) 16 % (0-9) Eosinophils (%) (Auto) 0 % (0-3) Basophils (%) (Auto) 1 % (0-3) Neutrophils # (Auto) 7.8 x10^3uL (1.8-7.7) Lymphocytes # (Auto) 1.3 x10^3/uL (1.0-4.8) Monocytes # (Auto) 1.7 x10^3/uL (0.0-1.1) Eosinophils # (Auto) 0.0 x10^3/uL (0.0-0.7) Basophils # (Auto) 0.1 x10^3/uL (0.0-0.2) Prothrombin Time 22.2 SEC (11.7-14.0) Prothromb Time International Ratio 2.0 (0.8-1.1) Activated Partial Thromboplast Time 57 SEC (24-38) Sodium Level 135 mmol/L (136-145) Potassium Level 3.9 mmol/L (3.5-5.1) Chloride Level 100 mmol/L (98-107) Carbon Dioxide Level 26 mmol/L (21-32) Anion Gap 9 (6-14) Blood Urea Nitrogen 20 mg/dL (8-26) Creatinine 0.9 mg/dL (0.7-1.3) Estimated GFR (Cockcroft-Gault) 85.0 BUN/Creatinine Ratio 22 (6-20) Glucose Level 96 mg/dL (70-99) Calcium Level 9.4 mg/dL (8.5-10.1) Magnesium Level 2.0 mg/dL (1.8-2.4) Total Bilirubin 0.6 mg/dL (0.2-1.0) Aspartate Amino Transf (AST/SGOT) 13 U/L (15-37) Alanine Aminotransferase (ALT/SGPT) 9 U/L (16-63) Alkaline Phosphatase 45 U/L (46-116) Creatine Kinase 94 U/L (39-308) Creatine Kinase MB (Mass) 1.6 ng/mL (0.0-3.6) Creatine Kinase MB Relative Index 1.7 % (0-4) Troponin I Quantitative < 0.017 ng/mL (0.000-0.055) RI-Wmz-[id number]-Type Natriuretic Peptide 287 pg/mL (0-124) Total Protein 8.2 g/dL (6.4-8.2) Albumin 3.8 g/dL (3.4-5.0) Albumin/Globulin Ratio 0.9 (1.0-1.7) Urine Color Yellow Urine Clarity Clear Urine pH 7.0 Urine Specific [place] 1.025 Urine Protein Negative mg/dL (NEG-TRACE) Urine Glucose (UA) Negative mg/dL (NEG) Urine Ketones (Stick) Trace mg/dL (NEG) Urine Blood Negative (NEG) Urine Nitrite Negative (NEG) Urine Bilirubin Small (NEG) Urine Urobilinogen Dipstick 1.0 mg/dL (0.2 mg/dL) Urine Leukocyte Esterase Negative (NEG) Urine RBC 0 /HPF (0-2) Urine WBC 1-4 /HPF (0-4) Urine Squamous Epithelial Cells Occ /LPF Urine Bacteria 0 /HPF (0-FEW) Urine Mucus Mod /LPF Assessment and Plan Assessmemt and Plan Problems Medical Problems: (1) Fall Status: Acute (2) Forehead contusion Status: Acute (3) Left leg DVT Status: Acute (4) Right rib fracture Status: Acute Comment Review of Relevant I have reviewed the following items jose alfredo (where applicable) has been applied. Labs Laboratory Tests Test 02/19/19 12:25 02/19/19 13:55 White Blood Count 10.9 x10^3/uL (4.0-11.0) Red Blood Count 4.27 x10^6/uL (4.30-5.70) Hemoglobin 12.9 g/dL (13.0-17.5) Hematocrit 39.1 % (39.0-53.0) Mean Corpuscular Volume 92 fL (79-100) Mean Corpuscular Hemoglobin 30 pg (25-35) Mean Corpuscular Hemoglobin Concent 33 g/dL (31-37) Red Cell Distribution Width 15.8 % (11.5-14.5) Platelet Count 275 x10^3/uL (140-400) Neutrophils (%) (Auto) 71 % (31-73) Lymphocytes (%) (Auto) 12 % (24-48) Monocytes (%) (Auto) 16 % (0-9) Eosinophils (%) (Auto) 0 % (0-3) Basophils (%) (Auto) 1 % (0-3) Neutrophils # (Auto) 7.8 x10^3uL (1.8-7.7) Lymphocytes # (Auto) 1.3 x10^3/uL (1.0-4.8) Monocytes # (Auto) 1.7 x10^3/uL (0.0-1.1) Eosinophils # (Auto) 0.0 x10^3/uL (0.0-0.7) Basophils # (Auto) 0.1 x10^3/uL (0.0-0.2) Prothrombin Time 22.2 SEC (11.7-14.0) Prothromb Time International Ratio 2.0 (0.8-1.1) Activated Partial Thromboplast Time 57 SEC (24-38) Sodium Level 135 mmol/L (136-145) Potassium Level 3.9 mmol/L (3.5-5.1) Chloride Level 100 mmol/L (98-107) Carbon Dioxide Level 26 mmol/L (21-32) Anion Gap 9 (6-14) Blood Urea Nitrogen 20 mg/dL (8-26) Creatinine 0.9 mg/dL (0.7-1.3) Estimated GFR (Cockcroft-Gault) 85.0 BUN/Creatinine Ratio 22 (6-20) Glucose Level 96 mg/dL (70-99) Calcium Level 9.4 mg/dL (8.5-10.1) Magnesium Level 2.0 mg/dL (1.8-2.4) Total Bilirubin 0.6 mg/dL (0.2-1.0) Aspartate Amino Transf (AST/SGOT) 13 U/L (15-37) Alanine Aminotransferase (ALT/SGPT) 9 U/L (16-63) Alkaline Phosphatase 45 U/L (46-116) Creatine Kinase 94 U/L (39-308) Creatine Kinase MB (Mass) 1.6 ng/mL (0.0-3.6) Creatine Kinase MB Relative Index 1.7 % (0-4) Troponin I Quantitative < 0.017 ng/mL (0.000-0.055) KT-Sbu-X-Type Natriuretic Peptide 287 pg/mL (0-124) Total Protein 8.2 g/dL (6.4-8.2) Albumin 3.8 g/dL (3.4-5.0) Albumin/Globulin Ratio 0.9 (1.0-1.7) Urine Color Yellow Urine Clarity Clear Urine pH 7.0 Urine Specific [place] 1.025 Urine Protein Negative mg/dL (NEG-TRACE) Urine Glucose (UA) Negative mg/dL (NEG) Urine Ketones (Stick) Trace mg/dL (NEG) Urine Blood Negative (NEG) Urine Nitrite Negative (NEG) Urine Bilirubin Small (NEG) Urine Urobilinogen Dipstick 1.0 mg/dL (0.2 mg/dL) Urine Leukocyte Esterase Negative (NEG) Urine RBC 0 /HPF (0-2) Urine WBC 1-4 /HPF (0-4) Urine Squamous Epithelial Cells Occ /LPF Urine Bacteria 0 /HPF (0-FEW) Urine Mucus Mod /LPF Laboratory Tests Test 02/19/19 12:25 02/19/19 13:55 White Blood Count 10.9 x10^3/uL (4.0-11.0) Red Blood Count 4.27 x10^6/uL (4.30-5.70) Hemoglobin 12.9 g/dL (13.0-17.5) Hematocrit 39.1 % (39.0-53.0) Mean Corpuscular Volume 92 fL (79-100) Mean Corpuscular Hemoglobin 30 pg (25-35) Mean Corpuscular Hemoglobin Concent 33 g/dL (31-37) Red Cell Distribution Width 15.8 % (11.5-14.5) Platelet Count 275 x10^3/uL (140-400) Neutrophils (%) (Auto) 71 % (31-73) Lymphocytes (%) (Auto) 12 % (24-48) Monocytes (%) (Auto) 16 % (0-9) Eosinophils (%) (Auto) 0 % (0-3) Basophils (%) (Auto) 1 % (0-3) Neutrophils # (Auto) 7.8 x10^3uL (1.8-7.7) Lymphocytes # (Auto) 1.3 x10^3/uL (1.0-4.8) Monocytes # (Auto) 1.7 x10^3/uL (0.0-1.1) Eosinophils # (Auto) 0.0 x10^3/uL (0.0-0.7) Basophils # (Auto) 0.1 x10^3/uL (0.0-0.2) Prothrombin Time 22.2 SEC (11.7-14.0) Prothromb Time International Ratio 2.0 (0.8-1.1) Activated Partial Thromboplast Time 57 SEC (24-38) Sodium Level 135 mmol/L (136-145) Potassium Level 3.9 mmol/L (3.5-5.1) Chloride Level 100 mmol/L (98-107) Carbon Dioxide Level 26 mmol/L (21-32) Anion Gap 9 (6-14) Blood Urea Nitrogen 20 mg/dL (8-26) Creatinine 0.9 mg/dL (0.7-1.3) Estimated GFR (Cockcroft-Gault) 85.0 BUN/Creatinine Ratio 22 (6-20) Glucose Level 96 mg/dL (70-99) Calcium Level 9.4 mg/dL (8.5-10.1) Magnesium Level 2.0 mg/dL (1.8-2.4) Total Bilirubin 0.6 mg/dL (0.2-1.0) Aspartate Amino Transf (AST/SGOT) 13 U/L (15-37) Alanine Aminotransferase (ALT/SGPT) 9 U/L (16-63) Alkaline Phosphatase 45 U/L (46-116) Creatine Kinase 94 U/L (39-308) Creatine Kinase MB (Mass) 1.6 ng/mL (0.0-3.6) Creatine Kinase MB Relative Index 1.7 % (0-4) Troponin I Quantitative < 0.017 ng/mL (0.000-0.055) IT-Pji-Y-Type Natriuretic Peptide 287 pg/mL (0-124) Total Protein 8.2 g/dL (6.4-8.2) Albumin 3.8 g/dL (3.4-5.0) Albumin/Globulin Ratio 0.9 (1.0-1.7) Urine Color Yellow Urine Clarity Clear Urine pH 7.0 Urine Specific [place] 1.025 Urine Protein Negative mg/dL (NEG-TRACE) Urine Glucose (UA) Negative mg/dL (NEG) Urine Ketones (Stick) Trace mg/dL (NEG) Urine Blood Negative (NEG) Urine Nitrite Negative (NEG) Urine Bilirubin Small (NEG) Urine Urobilinogen Dipstick 1.0 mg/dL (0.2 mg/dL) Urine Leukocyte Esterase Negative (NEG) Urine RBC 0 /HPF (0-2) Urine WBC 1-4 /HPF (0-4) Urine Squamous Epithelial Cells Occ /LPF Urine Bacteria 0 /HPF (0-FEW) Urine Mucus Mod /LPF Medications Current Medications Sodium Chloride 1,000 ml @ 1,000 mls/hr 1X ONCE IV Last administered on at 13:47; Start 02/19/19 at 13:45; Stop 02/19/19 at 14:44; Status DC Ondansetron HCl (Zofran) 4 mg PRN Q8HRS PRN IV NAUSEA/VOMITING; Start 02/19/19 at 16:30; Stop 02/20/19 at 16:29 Morphine Sulfate (Morphine Sulfate) 2 mg PRN Q2HR PRN IV PAIN; Start 02/19/19 at 16:30; Stop 02/20/19 at 16:29 Acetaminophen (Tylenol) 650 mg PRN Q4HRS PRN PO FEVER; Start 02/19/19 at 16:30 ; Stop 02/20/19 at 16:29 Acetaminophen (Tylenol) 650 mg Q6HRS PO ; Start 02/20/19 at 00:00 Amlodipine Besylate (Norvasc) 5 mg DAILY PO ; Start 02/20/19 at 09:00 Atorvastatin Calcium (Lipitor) 20 mg PRN QHS PRN PO HIGH HDL; Start 02/19/19 at 20:00 Baclofen (Lioresal) 20 mg QID PO Last administered on 02/19/19at 21:42; Start at 21:00 Carbidopa/Levodopa (Sinemet 25/100) 1 tab TID PO Last administered on at 21:42; Start 02/19/19 at 21:00 Vitamin D (Vitamin D3) 2,000 unit DAILY PO ; Start 02/20/19 at 09:00 Diclofenac Sodium (Voltaren) 1 anisa PRN Q4HRS PRN TP PAIN; Start 02/19/19 at 20: 00 Divalproex Sodium (Depakote Er) 1,500 mg QHS PO Last administered on 02/19/19at 21:42; Start 02/19/19 at 21:00 Gabapentin (Neurontin) 300 mg TID PO Last administered on 02/19/19at 21:42; Start 02/19/19 at 21:00 Artificial Tears (Artificial Tears) 1 drop PRN TID PRN OU DRY EYE; Start at 20:00 Donepezil HCl (Aricept) 5 mg QHS PO Last administered on 02/19/19at 21:42; Start 02/19/19 at 21:00 Multivitamins (Thera M Plus) 1 tab DAILY PO ; Start 02/20/19 at 09:00 Nystatin (Mycostatin) 1 anisa TID TP ; Start 02/19/19 at 21:00 Rivaroxaban (Xarelto) 10 mg DAILYWSUP PO Last administered on 02/19/19at 21:43; Start 02/19/19 at 21:00 Sennosides (Senna) 8.6 mg QHS PO Last administered on 02/19/19at 21:42; Start at 21:00 Sertraline HCl (Zoloft) 75 mg DAILY PO ; Start 02/20/19 at 09:00 Info (Anti-Coagulation Monitoring By Pharmacy) 1 each PRN DAILY PRN MC SEE COMMENTS; Start 02/19/19 at 20:00 Active Scripts Active Reported Voltaren (Diclofenac Sodium) 100 Gm Gel..gram. 1 Gm TP PRN Q4HRS PRN Depakote Er (Divalproex Sodium) 500 Mg Tab.er.24h 3 Tab PO QHS Xarelto (Rivaroxaban) 20 Mg Tablet 20 Mg PO DAILY Tylenol (Acetaminophen) 325 Mg Tablet 2 Tab PO Q6HRS Gabapentin (Gabapentin) 100 Mg Capsule 300 Mg PO TID Refresh Optive Eye Drops (Carboxymethylcellulos/Glycerin) 15 Ml Drops 1 Drop EACHEYE TID Nystatin 15 Gm Cream..g. 1 Anisa TP TID Sinemet 25-100 Mg Tablet (Carbidopa/Levodopa) 1 Each Tablet 1 Tab PO TID Baclofen 10 Mg Tablet 20 Mg PO QID Senna (Sennosides) 8.6 Mg Tablet 8.6 Mg PO HS Atorvastatin Calcium 20 Mg Tablet 20 Mg PO HS PRN Donepezil Hcl 5 Mg Tablet 5 Mg PO HS Vitamin D3 (Cholecalciferol (Vitamin D3)) 1,000 Unit Tablet 2 Tab PO DAILY Zoloft (Sertraline Hcl) 100 Mg Tablet 75 Mg PO DAILY Multivitamins (Multivitamin) 1 Each Tablet 1 Tab PO DAILY Amlodipine Besylate 5 Mg Tablet 5 Mg PO DAILY Vitals/I & O Vital Sign - Last 24 Hours 02/19/19 02/19/19 02/19/19 02/19/19 11:29 12:13 12:42 13:12 Temp 98.1 98.1 Pulse 83 80 76 76 Resp 16 18 16 16 B/P (MAP) 101/61 (74) Pulse Ox 94 93 92 92 O2 Delivery Room Air 02/19/19 02/19/19 02/19/19 02/19/19 13:42 13:54 14:12 14:42 Pulse 80 74 72 72 Resp 16 20 16 16 Pulse Ox 91 96 94 93 02/19/19 02/19/19 02/19/19 02/19/19 15:12 15:42 16:10 16:12 Temp 98.7 98.7 Pulse 68 68 64 72 Resp 16 20 18 20 B/P (MAP) 129/72 (91) Pulse Ox 92 92 94 93 O2 Delivery Room Air 02/19/19 02/19/19 02/19/19 02/19/19 16:42 17:12 17:35 19:15 Temp 98.5 98.5 Pulse 70 72 78 Resp 16 16 18 B/P (MAP) 109/67 (81) Pulse Ox 93 94 93 O2 Delivery Room Air Room Air 02/19/19 02/19/19 02/20/19 02/20/19 19:30 23:26 03:29 07:00 Temp 98.4 98.1 98.2 98.4 98.1 98.2 Pulse 72 70 69 Resp 18 18 20 B/P (MAP) 102/60 (74) 100/54 (69) 100/62 (75) Pulse Ox 91 92 96 O2 Delivery Room Air Room Air Room Air Room Air Intake and Output 02/19/19 02/19/19 02/20/19 15:00 23:00 07:00 Intake Total 1000 ml 360 ml Balance 1000 ml 360 ml ESTER MORALES MD Feb 20, 2019 09:33
--- NOTE | 2019-02-20 10:05 | PDOC2 ---
CONSULT Date of Consult Date of Consult DATE: 02/20/19 TIME: 09:55 Reason for consultation: DVT, history of subdural Consult: Hematology oncology, Dr. Laverne Ureña History of present illness: He is a 63-year-old male with left lower extremity swelling, from lower leg extending to thigh, worsening over time, despite Xarelto, associated with pain and redness, acute in January but has become chronic persisting for greater than a month, and he fell off his Wheelchair yesterday at the [facility] and was admitted. History of subdural, with craniotomy in the past in 2017 that has not progressed over time. No prior clots before the January 2019 DVT that was initially diagnosed at the [facility]. Ultrasound here shows extensive nonocclusive thrombus left common femoral vein to calf veins. Kidney function is normal. Platelet count is normal. He had an IVC filter placed prophylactically in 2017 that is still present. 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 Rosales, no current tobacco or alcohol or drugs, though does use CBD oil Family history: Dad had liver cancer Review of systems: Cold symptoms recently, hoarse voice, left lower extremity swelling with pain and redness, problems with depression and anxiety and anger, chronic pain, otherwise 10 point review of systems negative Physical exam: Vitals reviewed Gen.: Well-nourished in no acute distress, does most of the history giving HEENT: mucous membranes moist, head normocephalic atraumatic Neck: Supple, no lymphadenopathy Lymph nodes: No palpable lymphadenopathy neck or axilla Lungs: Breathing comfortably, no evidence of respiratory distress Heart: Regular rate and rhythm Abdomen: Soft, nontender, nondistended Extremities: No cyanosis, does have left lower extremity edema greater than right, the left lower extremity edema extends up to the thigh and is associated with slight erythema, he has a stocking on the right lower extremity Skin: Other than lower extremity erythema on the left, no obvious rashes or skin breakdown Neuro: Alert, able to answer questions minimally Psych: Normal mood and quiet affect Lab reviewed: White count 10.9, hemoglobin 12.9, platelets 275 INR 2.0 PTT 57 Creatinine 0.9 Rads reviewed: This admit lower extremity ultrasound shows extensive nonocclusive thrombus in the left common femoral vein to calf vein Chest x-ray shows right ninth rib fracture Head and C-spine CT showed unchanged encephalomalacia right sided, chronic subdural hematoma/hygroma, unchanged hydrocephalus, sinusitis left greater than right, and multilevel degenerative changes Case discussed with: Patient and his , records reviewed in [facility], including labs and radiology, please see note for summary details Assessment and Plan: He is a 63-year-old man with history of prior hemorrhagic stroke and subdural hematoma in 2016 treated with craniotomy and prophylactic IVC filter, he developed a left lower extremity DVT in January 2019, and was placed initially on Lovenox and then Xarelto, he feels like symptoms have worsened over the past month per his , he was admitted here in January, when the decision for anticoagulation was made at that time after consultation with neurosurgery even though I do not see a note from them, it appears they did not think any further intervention was necessary for the subdural and he was started on the anticoagulation but unfortunately feels like symptoms have worsened since, he's currently on a low dose of Xarelto which is not a treatment dose, and it appears that on his H&P the medications ordered were the treatment dose Xarelto, he does not have any bleeding complications and his tells me the subdural has not worsened since 2017 despite his anticoagulation for the last month, however if his symptoms are getting worse and clot is still present would give Lovenox as long as clot is present, and then with a history of hemorrhagic CVA and subdural would stop anticoagulation as soon as safely able, thus would give Lovenox treatment dose and recheck an ultrasound in 3 months to see if anticoagulation could be stopped at that time. If any concern for neurologic compromise would withhold anticoagulation and consult neurosurgery. He does have an IVC filter in place. Left lower extremity DVT: Worsening on Xarelto per report therefore we will transition to Lovenox with recommended follow-up ultrasound LLE in 3 months, approximately mid May History of subdural: Low threshold to reengage neurosurgery as needed Sinusitis on imaging: Deferred to primary other comorbidities: Deferred to primary and others Thank you kindly for this consultation, and please do not hesitate to call with any further questions. Past Medical History Cardiovascular: HTN, Hyperlipidemia Pulmonary: COPD CENTRAL NERVOUS SYSTEM: CVA, Dementia, Other GI: No pertinent hx Heme/Onc: No pertinent hx Hepatobiliary: No pertinent hx Psych: Anxiety, Addictions, Depression Rheumatologic: No pertinent hx Infectious disease: Other Renal/: No pertinent hx Endocrine: No pertinent hx Past Surgical History Past Surgical History: Other Family History Family History: No Significant Social History No ALCOHOL: none Drugs: None Lives: with Family Domestic Violence: Neg Current Problem List Problem List Problems Medical Problems: (1) Fall Status: Acute (2) Forehead contusion Status: Acute (3) Left leg DVT Status: Acute (4) Right rib fracture Status: Acute Current Medications Current Medications Current Medications Sodium Chloride 1,000 ml @ 1,000 mls/hr 1X ONCE IV Last administered on at 13:47; Start 02/19/19 at 13:45; Stop 02/19/19 at 14:44; Status DC Ondansetron HCl (Zofran) 4 mg PRN Q8HRS PRN IV NAUSEA/VOMITING; Start 02/19/19 at 16:30; Stop 02/20/19 at 16:29 Morphine Sulfate (Morphine Sulfate) 2 mg PRN Q2HR PRN IV PAIN; Start 02/19/19 at 16:30; Stop 02/20/19 at 16:29 Acetaminophen (Tylenol) 650 mg PRN Q4HRS PRN PO FEVER; Start 02/19/19 at 16:30 ; Stop 02/20/19 at 16:29 Acetaminophen (Tylenol) 650 mg Q6HRS PO ; Start 02/20/19 at 00:00 Amlodipine Besylate (Norvasc) 5 mg DAILY PO ; Start 02/20/19 at 09:00 Atorvastatin Calcium (Lipitor) 20 mg PRN QHS PRN PO HIGH HDL; Start 02/19/19 at 20:00 Baclofen (Lioresal) 20 mg QID PO Last administered on 02/19/19at 21:42; Start at 21:00 Carbidopa/Levodopa (Sinemet 25/100) 1 tab TID PO Last administered on at 21:42; Start 02/19/19 at 21:00 Vitamin D (Vitamin D3) 2,000 unit DAILY PO ; Start 02/20/19 at 09:00 Diclofenac Sodium (Voltaren) 1 anisa PRN Q4HRS PRN TP PAIN; Start 02/19/19 at 20: 00 Divalproex Sodium (Depakote Er) 1,500 mg QHS PO Last administered on 02/19/19at 21:42; Start 02/19/19 at 21:00 Gabapentin (Neurontin) 300 mg TID PO Last administered on 02/19/19at 21:42; Start 02/19/19 at 21:00 Artificial Tears (Artificial Tears) 1 drop PRN TID PRN OU DRY EYE; Start at 20:00 Donepezil HCl (Aricept) 5 mg QHS PO Last administered on 02/19/19at 21:42; Start 02/19/19 at 21:00 Multivitamins (Thera M Plus) 1 tab DAILY PO ; Start 02/20/19 at 09:00 Nystatin (Mycostatin) 1 anisa TID TP ; Start 02/19/19 at 21:00 Rivaroxaban (Xarelto) 10 mg DAILYWSUP PO Last administered on 02/19/19at 21:43; Start 02/19/19 at 21:00 Sennosides (Senna) 8.6 mg QHS PO Last administered on 02/19/19at 21:42; Start at 21:00 Sertraline HCl (Zoloft) 75 mg DAILY PO ; Start 02/20/19 at 09:00 Info (Anti-Coagulation Monitoring By Pharmacy) 1 each PRN DAILY PRN MC SEE COMMENTS; Start 02/19/19 at 20:00 Active Scripts Active Reported Voltaren (Diclofenac Sodium) 100 Gm Gel..gram. 1 Gm TP PRN Q4HRS PRN Depakote Er (Divalproex Sodium) 500 Mg Tab.er.24h 3 Tab PO QHS Xarelto (Rivaroxaban) 20 Mg Tablet 20 Mg PO DAILY Tylenol (Acetaminophen) 325 Mg Tablet 2 Tab PO Q6HRS Gabapentin (Gabapentin) 100 Mg Capsule 300 Mg PO TID Refresh Optive Eye Drops (Carboxymethylcellulos/Glycerin) 15 Ml Drops 1 Drop EACHEYE TID Nystatin 15 Gm Cream..g. 1 Anisa TP TID Sinemet 25-100 Mg Tablet (Carbidopa/Levodopa) 1 Each Tablet 1 Tab PO TID Baclofen 10 Mg Tablet 20 Mg PO QID Senna (Sennosides) 8.6 Mg Tablet 8.6 Mg PO HS Atorvastatin Calcium 20 Mg Tablet 20 Mg PO HS PRN Donepezil Hcl 5 Mg Tablet 5 Mg PO HS Vitamin D3 (Cholecalciferol (Vitamin D3)) 1,000 Unit Tablet 2 Tab PO DAILY Zoloft (Sertraline Hcl) 100 Mg Tablet 75 Mg PO DAILY Multivitamins (Multivitamin) 1 Each Tablet 1 Tab PO DAILY Amlodipine Besylate 5 Mg Tablet 5 Mg PO DAILY Allergies Allergies: Coded Allergies: No Known Drug Allergies (Unverified , 12/15/16) Vitals VITALS Vital Signs Date Time Temp Pulse Resp B/P (MAP) Pulse Ox O2 Delivery O2 Flow Rate FiO2 02/20/19 07:00 98.2 69 20 100/62 (75) 96 Room Air 98.2 Labs Labs Laboratory Tests Test 02/19/19 12:25 02/19/19 13:55 White Blood Count 10.9 x10^3/uL (4.0-11.0) Red Blood Count 4.27 x10^6/uL (4.30-5.70) Hemoglobin 12.9 g/dL (13.0-17.5) Hematocrit 39.1 % (39.0-53.0) Mean Corpuscular Volume 92 fL (79-100) Mean Corpuscular Hemoglobin 30 pg (25-35) Mean Corpuscular Hemoglobin Concent 33 g/dL (31-37) Red Cell Distribution Width 15.8 % (11.5-14.5) Platelet Count 275 x10^3/uL (140-400) Neutrophils (%) (Auto) 71 % (31-73) Lymphocytes (%) (Auto) 12 % (24-48) Monocytes (%) (Auto) 16 % (0-9) Eosinophils (%) (Auto) 0 % (0-3) Basophils (%) (Auto) 1 % (0-3) Neutrophils # (Auto) 7.8 x10^3uL (1.8-7.7) Lymphocytes # (Auto) 1.3 x10^3/uL (1.0-4.8) Monocytes # (Auto) 1.7 x10^3/uL (0.0-1.1) Eosinophils # (Auto) 0.0 x10^3/uL (0.0-0.7) Basophils # (Auto) 0.1 x10^3/uL (0.0-0.2) Prothrombin Time 22.2 SEC (11.7-14.0) Prothromb Time International Ratio 2.0 (0.8-1.1) Activated Partial Thromboplast Time 57 SEC (24-38) Sodium Level 135 mmol/L (136-145) Potassium Level 3.9 mmol/L (3.5-5.1) Chloride Level 100 mmol/L (98-107) Carbon Dioxide Level 26 mmol/L (21-32) Anion Gap 9 (6-14) Blood Urea Nitrogen 20 mg/dL (8-26) Creatinine 0.9 mg/dL (0.7-1.3) Estimated GFR (Cockcroft-Gault) 85.0 BUN/Creatinine Ratio 22 (6-20) Glucose Level 96 mg/dL (70-99) Calcium Level 9.4 mg/dL (8.5-10.1) Magnesium Level 2.0 mg/dL (1.8-2.4) Total Bilirubin 0.6 mg/dL (0.2-1.0) Aspartate Amino Transf (AST/SGOT) 13 U/L (15-37) Alanine Aminotransferase (ALT/SGPT) 9 U/L (16-63) Alkaline Phosphatase 45 U/L (46-116) Creatine Kinase 94 U/L (39-308) Creatine Kinase MB (Mass) 1.6 ng/mL (0.0-3.6) Creatine Kinase MB Relative Index 1.7 % (0-4) Troponin I Quantitative < 0.017 ng/mL (0.000-0.055) MN-Tvo-U-Type Natriuretic Peptide 287 pg/mL (0-124) Total Protein 8.2 g/dL (6.4-8.2) Albumin 3.8 g/dL (3.4-5.0) Albumin/Globulin Ratio 0.9 (1.0-1.7) Urine Color Yellow Urine Clarity Clear Urine pH 7.0 Urine Specific [place] 1.025 Urine Protein Negative mg/dL (NEG-TRACE) Urine Glucose (UA) Negative mg/dL (NEG) Urine Ketones (Stick) Trace mg/dL (NEG) Urine Blood Negative (NEG) Urine Nitrite Negative (NEG) Urine Bilirubin Small (NEG) Urine Urobilinogen Dipstick 1.0 mg/dL (0.2 mg/dL) Urine Leukocyte Esterase Negative (NEG) Urine RBC 0 /HPF (0-2) Urine WBC 1-4 /HPF (0-4) Urine Squamous Epithelial Cells Occ /LPF Urine Bacteria 0 /HPF (0-FEW) Urine Mucus Mod /LPF Laboratory Tests Test 02/19/19 12:25 02/19/19 13:55 White Blood Count 10.9 x10^3/uL (4.0-11.0) Red Blood Count 4.27 x10^6/uL (4.30-5.70) Hemoglobin 12.9 g/dL (13.0-17.5) Hematocrit 39.1 % (39.0-53.0) Mean Corpuscular Volume 92 fL (79-100) Mean Corpuscular Hemoglobin 30 pg (25-35) Mean Corpuscular Hemoglobin Concent 33 g/dL (31-37) Red Cell Distribution Width 15.8 % (11.5-14.5) Platelet Count 275 x10^3/uL (140-400) Neutrophils (%) (Auto) 71 % (31-73) Lymphocytes (%) (Auto) 12 % (24-48) Monocytes (%) (Auto) 16 % (0-9) Eosinophils (%) (Auto) 0 % (0-3) Basophils (%) (Auto) 1 % (0-3) Neutrophils # (Auto) 7.8 x10^3uL (1.8-7.7) Lymphocytes # (Auto) 1.3 x10^3/uL (1.0-4.8) Monocytes # (Auto) 1.7 x10^3/uL (0.0-1.1) Eosinophils # (Auto) 0.0 x10^3/uL (0.0-0.7) Basophils # (Auto) 0.1 x10^3/uL (0.0-0.2) Prothrombin Time 22.2 SEC (11.7-14.0) Prothromb Time International Ratio 2.0 (0.8-1.1) Activated Partial Thromboplast Time 57 SEC (24-38) Sodium Level 135 mmol/L (136-145) Potassium Level 3.9 mmol/L (3.5-5.1) Chloride Level 100 mmol/L (98-107) Carbon Dioxide Level 26 mmol/L (21-32) Anion Gap 9 (6-14) Blood Urea Nitrogen 20 mg/dL (8-26) Creatinine 0.9 mg/dL (0.7-1.3) Estimated GFR (Cockcroft-Gault) 85.0 BUN/Creatinine Ratio 22 (6-20) Glucose Level 96 mg/dL (70-99) Calcium Level 9.4 mg/dL (8.5-10.1) Magnesium Level 2.0 mg/dL (1.8-2.4) Total Bilirubin 0.6 mg/dL (0.2-1.0) Aspartate Amino Transf (AST/SGOT) 13 U/L (15-37) Alanine Aminotransferase (ALT/SGPT) 9 U/L (16-63) Alkaline Phosphatase 45 U/L (46-116) Creatine Kinase 94 U/L (39-308) Creatine Kinase MB (Mass) 1.6 ng/mL (0.0-3.6) Creatine Kinase MB Relative Index 1.7 % (0-4) Troponin I Quantitative < 0.017 ng/mL (0.000-0.055) CZ-Wlb-B-Type Natriuretic Peptide 287 pg/mL (0-124) Total Protein 8.2 g/dL (6.4-8.2) Albumin 3.8 g/dL (3.4-5.0) Albumin/Globulin Ratio 0.9 (1.0-1.7) Urine Color Yellow Urine Clarity Clear Urine pH 7.0 Urine Specific [place] 1.025 Urine Protein Negative mg/dL (NEG-TRACE) Urine Glucose (UA) Negative mg/dL (NEG) Urine Ketones (Stick) Trace mg/dL (NEG) Urine Blood Negative (NEG) Urine Nitrite Negative (NEG) Urine Bilirubin Small (NEG) Urine Urobilinogen Dipstick 1.0 mg/dL (0.2 mg/dL) Urine Leukocyte Esterase Negative (NEG) Urine RBC 0 /HPF (0-2) Urine WBC 1-4 /HPF (0-4) Urine Squamous Epithelial Cells Occ /LPF Urine Bacteria 0 /HPF (0-FEW) Urine Mucus Mod /LPF LAVERNE UREÑA MD Feb 20, 2019 10:05
[2019-02-20 10:39] LABS: BASO % 1 % (0-3); EOS # 0.1 x10^3/uL (0.0-0.7); EOS % 1 % (0-3); HEMATOCRIT 34.5 % (39.0-53.0); HEMOGLOBIN 11.5 g/dL (13.0-17.5); LYMPH # 1.6 x10^3/uL (1.0-4.8); LYMPH % 19 % (24-48); MEAN CORPUSCULAR HEMOGLOBIN 30 pg (25-35); MEAN CORPUSCULAR HGB CONC 33 g/dL (31-37); MEAN CORPUSCULAR VOLUME 92 fL (79-100); MONO % 12 % (0-9); NEUT # 5.9 x10^3uL (1.8-7.7); NEUT % 68 % (31-73); PLATELET COUNT 224 x10^3/uL (140-400); RED BLOOD COUNT 3.77 x10^6/uL (4.30-5.70); RED CELL DISTRIBUTION WIDTH 15.4 % (11.5-14.5); WHITE BLOOD COUNT 8.7 x10^3/uL (4.0-11.0)
[2019-02-20 10:48] LABS: ALBUMIN/GLOBULIN RATIO 0.7 (1.0-1.7); CALCIUM 8.7 mg/dL (8.5-10.1); CREATININE 0.8 mg/dL (0.7-1.3); GFR 97.3; TOTAL BILIRUBIN 0.7 mg/dL (0.2-1.0); TOTAL PROTEIN 7.1 g/dL (6.4-8.2)
[2019-02-20] MEDS: CHOLECALCIFEROL (VITAMIN D3) 1,000 UNIT TABLET PO SCH (11:07)
[2019-02-20] MEDS: SERTRALINE 25 MG TABLET. PO SCH (11:08)
[2019-02-20] MEDS: MULTIVITAMIN with MINERAL TABLET. PO SCH (11:10)
[2019-02-20] MEDS: BACLOFEN 10 MG TABLET. PO SCH ×4 (11:10→20:30)
[2019-02-20] MEDS: CARBIDOPA/LEVODOPA 25/100MG TABLET PO SCH ×3 (11:11→20:30)
[2019-02-20] MEDS: GABAPENTIN 300 MG CAPSULE. PO SCH ×3 (11:12→20:30)
--- NOTE | 2019-02-20 14:10 | NUR ---
[facility] following for discharge planning. Discussed with RN , pt has many consults. SW confirmed pt is from [facility], [facility] or [facility]. SW will continue to follow for any discharge planning needs.
--- NOTE | 2019-02-20 14:27 | PDOC ---
Provider Note Provider Note Vascular Surgery Consult dictated 63 year old male with left leg DVT. Recommend anticoagulation, elevation and daily compression stockings. I do not recommend thrombolysis with his history of intracranial bleed and the swelling is only mild/moderate with no phlegmesia. JUAN RAMON BLANCHARD MD Feb 20, 2019 14:27
--- NOTE | 2019-02-20 14:45 | PDOC ---
Provider Note Provider Note Patient seen and examined Fell out of wheelchair at care home CT head reviewed with Dr. Paredes, there is significant volume loss on the right with chronic subdural hygroma, stable no surgical intervention indicated he is at baseline per d/w ELA DUARTE APRN Feb 20, 2019 14:45
[2019-02-20] MEDS ORDERED: IV NORMAL SALINE 500ML BAG 500 ML IV PRN (19:45)
[2019-02-20] MEDS: DICLOFENAC SODIUM 1% TOPICAL GEL 100GM TUBE. TP PRN (20:29)
[2019-02-20] MEDS: DONEPEZIL HCL 5 MG TABLET. PO SCH (20:30)
[2019-02-20] MEDS: SENNOSIDES 8.6 MG TABLET PO SCH (20:30)
[2019-02-20] MEDS: DIVALPROEX EXTENDED RELEASE 500 MG TAB.ER.24H. PO SCH (20:30)
[2019-02-21 03:00] VITALS: BP 99/63
[2019-02-21] MEDS: ACETAMINOPHEN 325 MG TABLET. PO SCH ×4 (06:00→23:51)
--- NOTE | 2019-02-21 06:13 | CONS ---
DATE OF CONSULTATION: 02/20/2019 CHIEF COMPLAINT: Deep venous thrombosis of the left leg. HISTORY OF PRESENT ILLNESS: The patient is a 63-year-old male who was admitted to the hospital after developing a left leg extensive deep venous thrombosis in 01/2019. He was treated with anticoagulation. He has a history of a hemorrhagic stroke in 2016, leaving him with left-sided weakness. At that time in 2016, an IVC filter was placed. So, he has a filter in place and he has been on anticoagulation since January. [facility] mainly sitting in his wheelchair with his legs usually in the dependent position. His family member reports that he was told at the [facility] that compression stockings were dangerous and dislodging his clot; therefore, he has not been using any compression stockings on the left leg and his leg has been down. Because of this, he has had increased swelling in the left leg while at the [facility]. He was admitted to the hospital and a duplex scan of the left leg was performed, which shows the thrombus within the left leg extending from the common femoral artery down to the calf vessels; however, there is nonocclusive clot seen; therefore, recanalization is occurring. The family states that the swelling has improved since he has been in the bed with the leg elevated since yesterday. REVIEW OF SYSTEMS: A 10-point review of systems is performed, which is otherwise negative besides what is mentioned in the history of present illness. PAST MEDICAL HISTORY: Includes: 1. Chronic left-sided weakness from a right hemispheric stroke in 2017. 2. Hypertension. 3. Hyperlipidemia. 4. COPD. 5. Dementia. 6. Parkinson's disease. 7. History of tobacco and alcohol abuse. 8. Left leg and arm contracture. PAST SURGICAL HISTORY: Includes: 1. IVC filter. 2. Craniotomy. 3. Back surgery. ALLERGIES: No known drug allergies. SOCIAL HISTORY: The patient lives at a [facility]. He has a history of alcohol and tobacco abuse, but does not currently use them. FAMILY HISTORY: Significant for liver cancer. PHYSICAL EXAMINATION: GENERAL: The patient is awake and alert, currently in no apparent distress. He is afebrile. His vital signs are stable. NECK: Supple with no carotid bruits. HEART: Regular rate and rhythm without murmurs. LUNGS: Bilateral breath sounds to auscultation. ABDOMEN: Soft, nondistended and nontender. EXTREMITIES: His bilateral lower extremities are warm with no tissue breakdown. His left lower extremity has mild to moderate swelling of the calf and ankle and foot; however, there is no severe swelling, no signs of phlegmasia. Skin is nice and pink and warm with good capillary refill and no tissue breakdown. He does seem to have contracture of his left knee. He also has contracture of his left arm from chronic weakness and immobility. His right lower extremity has no swelling. There is no tissue breakdown and he has good capillary refill in his right toes. NEUROLOGIC: He is awake and alert, he answers some simple questions, he has chronic weakness of his left arm and leg. IMPRESSION: 1. Left lower extremity extensive deep venous thrombosis, initially diagnosed in 01/2019. 2. Left leg swelling. 3. History of hemorrhagic right stroke requiring craniotomy with chronic symptoms of left-sided paralysis. PLAN: The patient has extensive left leg deep venous thrombosis diagnosed in 01/2019; however, it is now becoming nonocclusive and recanalizing on ultrasound study. I do not recommend intervention with thrombolysis due to his history in the past of a right hemispheric ischemic or hemorrhagic stroke even requiring craniotomy in the past. His swelling is only mild to moderate in nature with no signs of phlegmasia. I would recommend continuing anticoagulation. He also has an IVC filter in place. I do recommend starting daily compression stockings to the left leg. This has not been done at the [facility]. He needs to elevate his left leg as well. No vascular intervention is needed at this time. JUAN RAMON BLANCHARD MD DR: LONNY/niles JOB#: [id number] / [id number]
[2019-02-21 07:00] VITALS: BP 107/59
[2019-02-21] MEDS: SERTRALINE 25 MG TABLET. PO SCH (08:55)
[2019-02-21] MEDS: BACLOFEN 10 MG TABLET. PO SCH ×4 (08:55→21:03)
[2019-02-21] MEDS: CHOLECALCIFEROL (VITAMIN D3) 1,000 UNIT TABLET PO SCH (08:55)
[2019-02-21] MEDS: CARBIDOPA/LEVODOPA 25/100MG TABLET PO SCH ×3 (08:55→21:03)
[2019-02-21] MEDS: GABAPENTIN 300 MG CAPSULE. PO SCH ×3 (08:55→21:03)
[2019-02-21] MEDS: MULTIVITAMIN with MINERAL TABLET. PO SCH (08:56)
[2019-02-21] MEDS: NYSTATIN 100,000 UNIT/GM TOPICAL CREAM 15GM TUBE. TP SCH ×3 (09:00→21:04)
[2019-02-21] MEDS: amLODIPine BESYLATE 5 MG TABLET PO SCH (09:00)
[2019-02-21 11:00] VITALS: BP 96/60
--- NOTE | 2019-02-21 12:32 | PDOC ---
PROGRESS NOTES Chief Complaint Chief Complaint s/p fall from wheelchair at residential with sustained rib fracture extensive nonocclusive thrombus from the left common femoral vein to the calf veins, s/p IVC filter placed. consult vasc surgery no thrombolysis given hx of subdural hematoma. apprec hem. switch xaretlo to lovenox. repeat U/S in 3 months to see if AC could be stopped at that time. risk of bleeding explained to patient and . Subdural hematoma - does appear chronic from 2 years ago. consulted neurosx, no intervention. Hypertension - now hypotensive. SBP 90s yesterday. will hold BP meds. given bolus of fluids. 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 likely yuniel if BP stable and tolerating lovenox at bedside and updated. History of Present Illness History of Present Illness no issues. eating breakfast. at bedside. swelling in RLE about the same. has compression stockings in place. Vitals Vitals Vital Signs Date Time Temp Pulse Resp B/P (MAP) Pulse Ox O2 Delivery O2 Flow Rate FiO2 02/21/19 11:00 97.9 68 18 96/60 (72) 90 Room Air 97.9 Physical Exam Lungs: Clear Extremities: Other (b/l le swelling L.R) Assessment and Plan Assessmemt and Plan Problems Medical Problems: (1) Fall Status: Acute (2) Forehead contusion Status: Acute (3) Left leg DVT Status: Acute (4) Right rib fracture Status: Acute Comment Review of Relevant I have reviewed the following items jose alfredo (where applicable) has been applied. Labs Laboratory Tests Test 02/19/19 13:55 02/20/19 05:45 02/20/19 10:09 Urine Color Yellow Urine Clarity Clear Urine pH 7.0 Urine Specific [place] 1.025 Urine Protein Negative mg/dL (NEG-TRACE) Urine Glucose (UA) Negative mg/dL (NEG) Urine Ketones (Stick) Trace mg/dL (NEG) Urine Blood Negative (NEG) Urine Nitrite Negative (NEG) Urine Bilirubin Small (NEG) Urine Urobilinogen Dipstick 1.0 mg/dL (0.2 mg/dL) Urine Leukocyte Esterase Negative (NEG) Urine RBC 0 /HPF (0-2) Urine WBC 1-4 /HPF (0-4) Urine Squamous Epithelial Cells Occ /LPF Urine Bacteria 0 /HPF (0-FEW) Urine Mucus Mod /LPF Nasal Screen MRSA (PCR) Negative (Negative) White Blood Count 8.7 x10^3/uL (4.0-11.0) Red Blood Count 3.77 x10^6/uL (4.30-5.70) Hemoglobin 11.5 g/dL (13.0-17.5) Hematocrit 34.5 % (39.0-53.0) Mean Corpuscular Volume 92 fL (79-100) Mean Corpuscular Hemoglobin 30 pg (25-35) Mean Corpuscular Hemoglobin Concent 33 g/dL (31-37) Red Cell Distribution Width 15.4 % (11.5-14.5) Platelet Count 224 x10^3/uL (140-400) Neutrophils (%) (Auto) 68 % (31-73) Lymphocytes (%) (Auto) 19 % (24-48) Monocytes (%) (Auto) 12 % (0-9) Eosinophils (%) (Auto) 1 % (0-3) Basophils (%) (Auto) 1 % (0-3) Neutrophils # (Auto) 5.9 x10^3uL (1.8-7.7) Lymphocytes # (Auto) 1.6 x10^3/uL (1.0-4.8) Monocytes # (Auto) 1.0 x10^3/uL (0.0-1.1) Eosinophils # (Auto) 0.1 x10^3/uL (0.0-0.7) Basophils # (Auto) 0.0 x10^3/uL (0.0-0.2) Sodium Level 138 mmol/L (136-145) Potassium Level 4.0 mmol/L (3.5-5.1) Chloride Level 101 mmol/L (98-107) Carbon Dioxide Level 27 mmol/L (21-32) Anion Gap 10 (6-14) Blood Urea Nitrogen 15 mg/dL (8-26) Creatinine 0.8 mg/dL (0.7-1.3) Estimated GFR (Cockcroft-Gault) 97.3 BUN/Creatinine Ratio 19 (6-20) Glucose Level 132 mg/dL (70-99) Calcium Level 8.7 mg/dL (8.5-10.1) Total Bilirubin 0.7 mg/dL (0.2-1.0) Aspartate Amino Transf (AST/SGOT) 8 U/L (15-37) Alanine Aminotransferase (ALT/SGPT) 11 U/L (16-63) Alkaline Phosphatase 42 U/L (46-116) Total Protein 7.1 g/dL (6.4-8.2) Albumin 3.0 g/dL (3.4-5.0) Albumin/Globulin Ratio 0.7 (1.0-1.7) Medications Current Medications Sodium Chloride 1,000 ml @ 1,000 mls/hr 1X ONCE IV Last administered on at 13:47; Start 02/19/19 at 13:45; Stop 02/19/19 at 14:44; Status DC Ondansetron HCl (Zofran) 4 mg PRN Q8HRS PRN IV NAUSEA/VOMITING; Start 02/19/19 at 16:30; Stop 02/20/19 at 16:29; Status DC Morphine Sulfate (Morphine Sulfate) 2 mg PRN Q2HR PRN IV PAIN; Start 02/19/19 at 16:30; Stop 02/20/19 at 16:29; Status DC Acetaminophen (Tylenol) 650 mg PRN Q4HRS PRN PO FEVER; Start 02/19/19 at 16:30 ; Stop 02/20/19 at 16:29; Status DC Acetaminophen (Tylenol) 650 mg Q6HRS PO Last administered on 02/20/19at 18:37; Start 02/20/19 at 00:00 Amlodipine Besylate (Norvasc) 5 mg DAILY PO ; Start 02/20/19 at 09:00 Atorvastatin Calcium (Lipitor) 20 mg PRN QHS PRN PO HIGH HDL; Start 02/19/19 at 20:00 Baclofen (Lioresal) 20 mg QID PO Last administered on 02/21/19at 08:55; Start at 21:00 Carbidopa/Levodopa (Sinemet 25/100) 1 tab TID PO Last administered on 08:55; Start 02/19/19 at 21:00 Vitamin D (Vitamin D3) 2,000 unit DAILY PO Last administered on 02/21/19 08:55 ; Start 02/20/19 at 09:00 Diclofenac Sodium (Voltaren) 1 brit PRN Q4HRS PRN TP PAIN Last administered on 20:29; Start 02/19/19 at 20:00 Divalproex Sodium (Depakote Er) 1,500 mg QHS PO Last administered on 02/20/19 20:30; Start 02/19/19 at 21:00 Gabapentin (Neurontin) 300 mg TID PO Last administered on 02/21/19 08:55; Start 02/19/19 at 21:00 Artificial Tears (Artificial Tears) 1 drop PRN TID PRN OU DRY EYE; Start at 20:00 Donepezil HCl (Aricept) 5 mg QHS PO Last administered on 02/20/19 20:30; Start 02/19/19 at 21:00 Multivitamins (Thera M Plus) 1 tab DAILY PO Last administered on 02/21/19 08: 56; Start 02/20/19 at 09:00 Nystatin (Mycostatin) 1 brit TID TP Last administered on 02/21/19 09:00; Start 02/19/19 at 21:00 Rivaroxaban (Xarelto) 10 mg DAILYWSUP PO Last administered on 02/19/19 21:43; Start 02/19/19 at 21:00; Stop 02/20/19 at 10:07; Status DC Sennosides (Senna) 8.6 mg QHS PO Last administered on 02/20/19 20:30; Start at 21:00 Sertraline HCl (Zoloft) 75 mg DAILY PO Last administered on 02/21/19 08:55; Start 02/20/19 at 09:00 Info (Anti-Coagulation Monitoring By Pharmacy) 1 each PRN DAILY PRN MC SEE COMMENTS; Start 02/19/19 at 20:00 Enoxaparin Sodium (Lovenox 80mg Syringe) 80 mg Q12HR SQ Last administered on 08:54; Start 02/20/19 at 10:15 Sodium Chloride 500 ml @ 500 mls/hr 1X PRN PRN IV SEE COMMENTS; Start at 19:45 Active Scripts Active Reported Voltaren (Diclofenac Sodium) 100 Gm Gel..gram. 1 Gm TP PRN Q4HRS PRN Depakote Er (Divalproex Sodium) 500 Mg Tab.er.24h 3 Tab PO QHS Xarelto (Rivaroxaban) 20 Mg Tablet 20 Mg PO DAILY Tylenol (Acetaminophen) 325 Mg Tablet 2 Tab PO Q6HRS Gabapentin (Gabapentin) 100 Mg Capsule 300 Mg PO TID Refresh Optive Eye Drops (Carboxymethylcellulos/Glycerin) 15 Ml Drops 1 Drop EACHEYE TID Nystatin 15 Gm Cream..g. 1 Brit TP TID Sinemet 25-100 Mg Tablet (Carbidopa/Levodopa) 1 Each Tablet 1 Tab PO TID Baclofen 10 Mg Tablet 20 Mg PO QID Senna (Sennosides) 8.6 Mg Tablet 8.6 Mg PO HS Atorvastatin Calcium 20 Mg Tablet 20 Mg PO HS PRN Donepezil Hcl 5 Mg Tablet 5 Mg PO HS Vitamin D3 (Cholecalciferol (Vitamin D3)) 1,000 Unit Tablet 2 Tab PO DAILY Zoloft (Sertraline Hcl) 100 Mg Tablet 75 Mg PO DAILY Multivitamins (Multivitamin) 1 Each Tablet 1 Tab PO DAILY Amlodipine Besylate 5 Mg Tablet 5 Mg PO DAILY Vitals/I & O Vital Sign - Last 24 Hours 02/20/19 02/20/19 02/20/19 02/20/19 15:00 19:00 19:45 23:00 Temp 98.3 98.7 98.6 98.3 98.7 98.6 Pulse 71 80 75 Resp 18 18 18 B/P (MAP) 88/53 (65) 93/62 (72) 107/65 (79) Pulse Ox 90 94 93 O2 Delivery Room Air Room Air Room Air Room Air 02/21/19 02/21/19 02/21/19 02/21/19 03:00 07:00 08:00 09:00 Temp 98.3 97.7 98.3 97.7 Pulse 67 61 61 Resp 18 18 B/P (MAP) 99/63 (75) 107/59 (75) 107/59 Pulse Ox 92 93 O2 Delivery Room Air Room Air Room Air 02/21/19 11:00 Temp 97.9 97.9 Pulse 68 Resp 18 B/P (MAP) 96/60 (72) Pulse Ox 90 O2 Delivery Room Air ESTER MORALES MD Feb 21, 2019 12:32
[2019-02-21 15:00] VITALS: BP 113/62
[2019-02-21 19:15] VITALS: BP 102/61
[2019-02-21] MEDS: SENNOSIDES 8.6 MG TABLET PO SCH (20:59)
[2019-02-21] MEDS: DIVALPROEX EXTENDED RELEASE 500 MG TAB.ER.24H. PO SCH (21:03)
[2019-02-21] MEDS: DONEPEZIL HCL 5 MG TABLET. PO SCH (21:03)
[2019-02-21] MEDS: DICLOFENAC SODIUM 1% TOPICAL GEL 100GM TUBE. TP PRN (21:03)
[2019-02-21 22:59] VITALS: BP 126/73
[2019-02-22 03:00] VITALS: BP 127/67
[2019-02-22] MEDS: ACETAMINOPHEN 325 MG TABLET. PO SCH ×2 (06:00→12:00)
[2019-02-22 07:00] VITALS: BP 112/73
[2019-02-22] MEDS: BACLOFEN 10 MG TABLET. PO SCH ×2 (08:27→13:04)
[2019-02-22] MEDS: MULTIVITAMIN with MINERAL TABLET. PO SCH (08:27)
[2019-02-22] MEDS: CHOLECALCIFEROL (VITAMIN D3) 1,000 UNIT TABLET PO SCH (08:27)
[2019-02-22] MEDS: GABAPENTIN 300 MG CAPSULE. PO SCH ×2 (08:28→13:04)
[2019-02-22] MEDS: SERTRALINE 25 MG TABLET. PO SCH (08:29)
[2019-02-22] MEDS: CARBIDOPA/LEVODOPA 25/100MG TABLET PO SCH ×2 (08:29→13:04)
[2019-02-22] MEDS: NYSTATIN 100,000 UNIT/GM TOPICAL CREAM 15GM TUBE. TP SCH ×2 (08:40→13:04)
[2019-02-22] MEDS: amLODIPine BESYLATE 5 MG TABLET PO SCH (08:40)
[2019-02-22 11:00] VITALS: BP 123/71
--- NOTE | 2019-02-22 12:26 | SNU/HH DC ---
DISCHARGE ORDERS DISCHARGE INFORMATION: FINAL DIAGNOSIS Problems Medical Problems: (1) Fall Status: Acute (2) Forehead contusion Status: Acute (3) Left leg DVT Status: Acute (4) Right rib fracture Status: Acute CONDITION ON DISCHARGE: Stable CODE STATUS: Code Status: Full ALF: SNF STAY <30 DAYS: No HOSPICE: HOSPICE: No HOSPICE EVAL & TREAT: No LTAC: ADMIT TO LTAC: No POST DISCHARGE ORDERS: ACTIVITY ORDERS: Activity as tolerated WEIGHT BEARING STATUS: No restrictions DIET AFTER DISCHARGE: Cardiac DISCHARGE MEDICATIONS: Home Meds Reported Medications Diclofenac Sodium (VOLTAREN) 100 Gm Gel..gram., 1 GM TP PRN Q4HRS PRN for PAIN, #100 GM 2 Refills 02/19/19 Divalproex Sodium (DEPAKOTE ER) 500 Mg Tab.er.24h, 3 TAB PO QHS for Mood disorder, #90 TAB 2 Refills 02/19/19 Rivaroxaban (XARELTO) 20 Mg Tablet, 20 MG PO DAILY for LLE DVT, TAB 02/19/19 Acetaminophen (TYLENOL) 325 Mg Tablet, 2 TAB PO Q6HRS for PAIN, #60 TAB 2 Refills 01/10/19 Gabapentin (GABAPENTIN ) 100 Mg Capsule, 300 MG PO TID for NERVE PAIN, CAP 01/10/19 Carboxymethylcellulos/Glycerin (REFRESH OPTIVE EYE DROPS) 15 Ml Drops, 1 DROP EACHEYE TID for DRY EYES, #30 ML 6 Refills 01/10/19 Nystatin (NYSTATIN) 15 Gm Cream..g., 1 ERMIAS TP TID for FOR REDNESSOF ABDIAS AREA, # 30 GM 01/10/19 Carbidopa/Levodopa (SINEMET 25-100 MG TABLET) 1 Each Tablet, 1 TAB PO TID for PARKINSONS, TAB 01/10/19 Baclofen (BACLOFEN) 10 Mg Tablet, 20 MG PO QID for MUSCLE SPASMS, #30 TAB 0 Refills 01/10/19 Sennosides (SENNA) 8.6 Mg Tablet, 8.6 MG PO HS for CONSTIPATION, TAB 01/10/19 Atorvastatin Calcium (ATORVASTATIN CALCIUM) 20 Mg Tablet, 20 MG PO HS, #30 TAB 0 Refills 01/10/19 Donepezil Hcl (DONEPEZIL HCL) 5 Mg Tablet, 5 MG PO HS for MOOD STABILIZATION, TAB 01/10/19 Cholecalciferol (Vitamin D3) (VITAMIN D3) 1,000 Unit Tablet, 2 TAB PO DAILY for SUPPLEMENT, #30 TAB 5 Refills 01/10/19 Sertraline Hcl (ZOLOFT) 100 Mg Tablet, 75 MG PO DAILY for DEPRESSION, #30 TAB 5 Refills 01/10/19 Multivitamin (MULTIVITAMINS) 1 Each Tablet, 1 TAB PO DAILY for WOUND SUPPLEMENT , #90 TAB 3 Refills 01/10/19 Amlodipine Besylate (AMLODIPINE BESYLATE) 5 Mg Tablet, 5 MG PO DAILY, TAB 12/16/16 RUSSELL SUNSHINE III DO Feb 22, 2019 12:26
--- NOTE | 2019-02-22 13:23 | PDOC ---
PROGRESS NOTES Chief Complaint Chief Complaint CC: pt presented for a fall from a wheel chair at [facility], he had a hx of prior DVT s/p IVC filter placement. History of Present Illness History of Present Illness Pt seen and examined this morning, at bedside. Pt reports no new no issues, feels the swelling in LE is improved from admission, compression stockings in place. Vitals Vitals Vital Signs Date Time Temp Pulse Resp B/P (MAP) Pulse Ox O2 Delivery O2 Flow Rate FiO2 02/22/19 11:00 98.7 78 18 123/71 (88) 96 Room Air 98.7 Physical Exam General: Alert, Cooperative, No acute distress, Other (residule L weakness and spasticity ) Heart: Regular rate, Normal S1, Normal S2, No murmurs Lungs: Clear, Other (no crackles or wheezing) Abdomen: Normal bowel sounds, Soft, No tenderness Extremities: No clubbing, No cyanosis, Other (b/l le swelling, stockings in place, RLE elevated) Skin: No rashes, No breakdown, No significant lesion Review of Systems Review of Systems Denies Fevers/Chills Denies Nausea/Vomiting Denies Chest pain, Shortness of Air Assessment and Plan Assessmemt and Plan Assessment: s/p fall from wheel chair on Xarelto Hx of hemorrhagic stroke 2017, residual Left sided weakness and spasticity, paucity of speech. S/p craniotomy Nondisplaced fracture of the lateral aspect of the right 9th rib Hx of LE thrombosis 01/22, S.p IVC filter placement, 02/19/19 u/s showed non- occlusive thrombosis from common fem to popliteal with recannulization, no thrombolysis given hx of subdural hematoma HTN HLD COPD Dementia Parkinson disease Prior ETOH abuse - in remission since CVA Plan: D/c today, [facility] Discussed care with Vascular surgery, pt to be restarted on Xarelto as out pt Compressive Stockings in place and elevation for LE edema Will need repeat U/S in 3 months to see if AC could be stopped Fall precautions Problems Medical Problems: (1) Fall Status: Acute (2) Forehead contusion Status: Acute (3) Left leg DVT Status: Acute (4) Right rib fracture Status: Acute Comment Review of Relevant I have reviewed the following items jose alfredo (where applicable) has been applied. Medications Current Medications Sodium Chloride 1,000 ml @ 1,000 mls/hr 1X ONCE IV Last administered on at 13:47; Start 02/19/19 at 13:45; Stop 02/19/19 at 14:44; Status DC Ondansetron HCl (Zofran) 4 mg PRN Q8HRS PRN IV NAUSEA/VOMITING; Start 02/19/19 at 16:30; Stop 02/20/19 at 16:29; Status DC Morphine Sulfate (Morphine Sulfate) 2 mg PRN Q2HR PRN IV PAIN; Start 02/19/19 at 16:30; Stop 02/20/19 at 16:29; Status DC Acetaminophen (Tylenol) 650 mg PRN Q4HRS PRN PO FEVER; Start 02/19/19 at 16:30 ; Stop 02/20/19 at 16:29; Status DC Acetaminophen (Tylenol) 650 mg Q6HRS PO Last administered on 02/20/19at 18:37; Start 02/20/19 at 00:00 Amlodipine Besylate (Norvasc) 5 mg DAILY PO ; Start 02/20/19 at 09:00 Atorvastatin Calcium (Lipitor) 20 mg PRN QHS PRN PO HIGH HDL; Start 02/19/19 at 20:00; Stop 02/22/19 at 11:19; Status DC Baclofen (Lioresal) 20 mg QID PO Last administered on 02/22/19at 08:27; Start at 21:00 Carbidopa/Levodopa (Sinemet 25/100) 1 tab TID PO Last administered on 08:29; Start 02/19/19 at 21:00 Vitamin D (Vitamin D3) 2,000 unit DAILY PO Last administered on 02/22/19at 08:27 ; Start 02/20/19 at 09:00 Diclofenac Sodium (Voltaren) 1 anisa PRN Q4HRS PRN TP PAIN Last administered on 21:03; Start 02/19/19 at 20:00 Divalproex Sodium (Depakote Er) 1,500 mg QHS PO Last administered on 02/21/19 21:03; Start 02/19/19 at 21:00 Gabapentin (Neurontin) 300 mg TID PO Last administered on 02/22/19 08:28; Start 02/19/19 at 21:00 Artificial Tears (Artificial Tears) 1 drop PRN TID PRN OU DRY EYE Last administered on 02/21/19 21:03; Start 02/19/19 at 20:00 Donepezil HCl (Aricept) 5 mg QHS PO Last administered on 02/21/19 21:03; Start 02/19/19 at 21:00 Multivitamins (Thera M Plus) 1 tab DAILY PO Last administered on 02/22/19 08: 27; Start 02/20/19 at 09:00 Nystatin (Mycostatin) 1 anisa TID TP Last administered on 02/21/19 21:04; Start 02/19/19 at 21:00 Rivaroxaban (Xarelto) 10 mg DAILYWSUP PO Last administered on 02/19/19 21:43; Start 02/19/19 at 21:00; Stop 02/20/19 at 10:07; Status DC Sennosides (Senna) 8.6 mg QHS PO Last administered on 02/20/19 20:30; Start at 21:00 Sertraline HCl (Zoloft) 75 mg DAILY PO Last administered on 02/22/19 08:29; Start 02/20/19 at 09:00 Info (Anti-Coagulation Monitoring By Pharmacy) 1 each PRN DAILY PRN MC SEE COMMENTS Last administered on 02/21/19at 18:16; Start 02/19/19 at 20:00 Enoxaparin Sodium (Lovenox 80mg Syringe) 80 mg Q12HR SQ Last administered on at 08:38; Start 02/20/19 at 10:15 Sodium Chloride 500 ml @ 500 mls/hr 1X PRN PRN IV SEE COMMENTS; Start at 19:45 Atorvastatin Calcium (Lipitor) 20 mg QHS PO ; Start 02/22/19 at 21:00 Active Scripts Active Reported Voltaren (Diclofenac Sodium) 100 Gm Gel..gram. 1 Gm TP PRN Q4HRS PRN Depakote Er (Divalproex Sodium) 500 Mg Tab.er.24h 3 Tab PO QHS Xarelto (Rivaroxaban) 20 Mg Tablet 20 Mg PO DAILY Tylenol (Acetaminophen) 325 Mg Tablet 2 Tab PO Q6HRS Gabapentin (Gabapentin) 100 Mg Capsule 300 Mg PO TID Refresh Optive Eye Drops (Carboxymethylcellulos/Glycerin) 15 Ml Drops 1 Drop EACHEYE TID Nystatin 15 Gm Cream..g. 1 Anisa TP TID Sinemet 25-100 Mg Tablet (Carbidopa/Levodopa) 1 Each Tablet 1 Tab PO TID Baclofen 10 Mg Tablet 20 Mg PO QID Senna (Sennosides) 8.6 Mg Tablet 8.6 Mg PO HS Atorvastatin Calcium 20 Mg Tablet 20 Mg PO HS Donepezil Hcl 5 Mg Tablet 5 Mg PO HS Vitamin D3 (Cholecalciferol (Vitamin D3)) 1,000 Unit Tablet 2 Tab PO DAILY Zoloft (Sertraline Hcl) 100 Mg Tablet 75 Mg PO DAILY Multivitamins (Multivitamin) 1 Each Tablet 1 Tab PO DAILY Amlodipine Besylate 5 Mg Tablet 5 Mg PO DAILY Vitals/I & O Vital Sign - Last 24 Hours 02/21/19 02/21/19 02/21/19 02/21/19 15:00 19:15 20:00 22:59 Temp 97.9 98.0 98.1 97.9 98.0 98.1 Pulse 61 72 67 Resp 18 18 18 B/P (MAP) 113/62 (79) 102/61 (75) 126/73 (90) Pulse Ox 93 89 93 O2 Delivery Room Air Room Air Room Air Room Air 02/22/19 02/22/19 02/22/19 02/22/19 03:00 07:00 08:00 08:40 Temp 98.2 98.4 98.2 98.4 Pulse 63 58 58 Resp 18 18 B/P (MAP) 127/67 (87) 112/73 (86) 112/73 Pulse Ox 92 94 O2 Delivery Room Air Room Air Room Air 02/22/19 11:00 Temp 98.7 98.7 Pulse 78 Resp 18 B/P (MAP) 123/71 (88) Pulse Ox 96 O2 Delivery Room Air Intake and Output 02/21/19 02/21/19 02/22/19 15:00 23:00 07:00 Intake Total 480 ml 460 ml 360 ml Output Total 2 ml Balance 480 ml 458 ml 360 ml RUSSELL SUNSHINE III DO Feb 22, 2019 13:23
--- NOTE | 2019-02-22 14:38 | PDOC3 ---
Discharge Summary Visit Information Date of Admission: Feb 19, 2019 Date of Discharge: Feb 22, 2019 Admitting Diagnosis: fall DVT chronic subdural hematoma Final Diagnosis Problems Medical Problems: (1) Fall Status: Acute (2) Forehead contusion Status: Acute (3) Left leg DVT Status: Acute (4) Right rib fracture Status: Acute Brief Hospital Course Allergies Allergies Coded Allergies Type Severity Reaction Last Updated Verified No Known Drug Allergies 12/15/16 No Vital Signs Vital Signs Date Time Temp Pulse Resp B/P (MAP) Pulse Ox O2 Delivery O2 Flow Rate FiO2 02/22/19 11:00 98.7 78 18 123/71 (88) 96 Room Air 98.7 Brief Hospital Course Mr. Barrera is a 63 old [sex] who presented with [a fall from a wheelchair He [facility] where he has been residing after he suffered a subdural hematoma sometime back When he fell this time there was some concern that the hematoma could recur Social he was admitted We did physical therapy and occupational therapy He does have a DVT and was on Cymbalta before he came in We held this is a result O as well as his Plavix I spoke with vascular surgery this morning they feel is safe to put him back on the previous anticoagulation I did see him and examined him this morning His heart tones were normal his lungs are clear his abdomen was soft Overall is as baseline we plan to discharge back to [facility] long-term care Disposition long-term care Activity as tolerated1. Soft tissue swelling right buttocks, perirectal abscess w/ Sepsis He also had the previous history 2. Extensive soft tissue swelling in the right side of the pelvis without a defined abscess. 3. Distended bladder. 4. Fatty infiltration the liver. 5. undiagnosed DM2, not on meds at home 6. Morbid obesity 7. Sepsis 8. Leukocytosis 9. Hypokalemia Diet regular XI medications please see below Total time 39 minutes ] Discharge Information Disposition/Orders: D/C to Another Facility Scheduled Acetaminophen (Tylenol) 325 Mg Tablet, 2 TAB PO Q6HRS for PAIN, #60 Ref 2 ( Reported) Entered as Reported by: PORFIRIO KAISER on 01/10/19 1106 Last Action: Continued on 02/19/191951 by LEONIDES JOHNSON Amlodipine Besylate (Amlodipine Besylate) 5 Mg Tablet, 5 MG PO DAILY, (Reported) Entered as Reported by: RADAMES LATHAM on 12/16/16 0732 Last Action: Continued on 02/19/191951 by LEONIDES JOHNSON Atorvastatin Calcium (Atorvastatin Calcium) 20 Mg Tablet, 20 MG PO HS, #30 Ref 0 (Reported) Entered as Reported by: PORFIRIO [facility] on 01/10/191105 Last Action: Edited on 02/22/191118 by MICK EC[facility]VARRIA [facility] Baclofen (Baclofen) 10 Mg Tablet, 20 MG PO QID for MUSCLE SPASMS, #30 Ref 0 ( Reported) Entered as Reported by: PORFIRIO KAISER on 01/10/191105 Last Action: Continued on 02/19/191951 by LEONIDES JOHNSON Carbidopa/Levodopa (Sinemet 25-100 Mg Tablet) 1 Each Tablet, 1 TAB PO TID for PARKINSONS, (Reported) Entered as Reported by: PORFIRIO KAISER on 01/10/191105 Last Action: Continued on 02/19/191951 by LEONIDES JOHNSON Carboxymethylcellulos/Glycerin (Refresh Optive Eye Drops) 15 Ml Drops, 1 DROP EACHEYE TID for DRY EYES, #30 Ref 6 (Reported) Entered as Reported by: PORFIRIO KAISER on 01/10/191105 Last Action: Converted on 02/19/191951 by LEONIDES JOHNSON Cholecalciferol (Vitamin D3) (Vitamin D3) 1,000 Unit Tablet, 2 TAB PO DAILY for SUPPLEMENT, #30 Ref 5 (Reported) Entered as Reported by: PORFIRIO KAISER on 01/10/19 1053 Last Action: Continued on 02/19/191951 by LEONIDES JOHNSON Divalproex Sodium (Depakote Er) 500 Mg Tab.er.24h, 3 TAB PO QHS for Mood disorder, #90 Ref 2 (Reported) Entered as Reported by: ESTRADA FROST on 02/19/19 1847 Last Action: Continued on 02/19/191951 by LEONIDES JOHNSON Donepezil Hcl (Donepezil Hcl) 5 Mg Tablet, 5 MG PO HS for MOOD STABILIZATION, ( Reported) Entered as Reported by: PORFIRIO KAISER on 01/10/191105 Last Action: Converted on 02/19/191951 by LEONIDES JOHNSON Gabapentin (Gabapentin ) 100 Mg Capsule, 300 MG PO TID for NERVE PAIN, ( Reported) Entered as Reported by: PORFIRIO KAISER on 01/10/191105 Last Action: Continued on 02/19/191951 by LEONIDES JOHNSON Multivitamin (Multivitamins) 1 Each Tablet, 1 TAB PO DAILY for WOUND SUPPLEMENT , #90 Ref 3 (Reported) Entered as Reported by: PORFIRIO KAISER on 01/10/191052 Last Action: Converted on 02/19/191951 by LEONIDES JOHNSON Nystatin (Nystatin) 15 Gm Cream..g., 1 ERMIAS TP TID for FOR REDNESSOF ABDIAS AREA, # 30 (Reported) Entered as Reported by: PORFIRIO KAISER on 01/10/191105 Last Action: Converted on 02/19/191951 by LEONIDES JOHNSON Rivaroxaban (Xarelto) 20 Mg Tablet, 20 MG PO DAILY for LLE DVT, (Reported) Entered as Reported by: ESTRADA FROST on 02/19/191846 Last Taken: Unknown Dose on 02/19/19 Last Action: Converted on 02/19/191951 by LEONIDES JOHNSON Sennosides (Senna) 8.6 Mg Tablet, 8.6 MG PO HS for CONSTIPATION, (Reported) Entered as Reported by: PORFIRIO KAISER on 01/10/191105 Last Action: Converted on 02/19/191951 by LEONIDES JOHNSON Sertraline Hcl (Zoloft) 100 Mg Tablet, 75 MG PO DAILY for DEPRESSION, #30 Ref 5 (Reported) Entered as Reported by: PORFIRIO KAISER on 01/10/191052 Last Action: Converted on 02/19/191951 by LEONIDES JOHNSON Scheduled PRN Diclofenac Sodium (Voltaren) 100 Gm Gel..gram., 1 GM TP PRN Q4HRS PRN for PAIN, #100 Ref 2 (Reported) Entered as Reported by: ESTRADA FROST on 02/19/191846 Last Action: Continued on 02/19/191951 by RUSSELL SHEPPARD III DO Feb 22, 2019 14:38
--- NOTE | 2019-02-22 16:55 | NUR ---
Approximately 1655, pt transferred back to [facility] via transportation provided by [facility]. Clients VSS, A&O X1, to self, was by side. Client left by personal wheelchair. Agitation noted as client was leaving. This nurse went over d/c with . Transfer packet was given to transporter. This nurse attempted to contact [facility] for report 2x's, both unsuccessfully.
[2019-02-22] MEDS ORDERED: ATORVASTATIN CALCIUM 20 MG TABLET PO SCH (21:00)
== END 2019-02-22 16:55 | DRG 300 ==
LOC: ER 11:23 → 4 NORTH 16:12
PROVIDERS: ADMIT Family Medicine; ATTEND Family Medicine
DX: I82.412 Acute embolism and thrombosis of left femoral vein (principal); S22.31XA Fracture of one rib, right side, initial encounter for closed fracture; I69.254 Hemiplegia and hemiparesis following other nontraumatic intracranial hemorrhage affecting left non-dominant side; G91.9 Hydrocephalus, unspecified; R29.6 Repeated falls; J44.9 Chronic obstructive pulmonary disease, unspecified; I10 Essential (primary) hypertension; E78.5 Hyperlipidemia, unspecified; E78.00 Pure hypercholesterolemia, unspecified; M48.02 Spinal stenosis, cervical region; G20 Parkinson's disease; F03.90 Unspecified dementia, unspecified severity, without behavioral disturbance, psychotic disturbance, mood disturbance, and anxiety; F41.9 Anxiety disorder, unspecified; W05.0XXA Fall from non-moving wheelchair, initial encounter; S00.83XA Contusion of other part of head, initial encounter; F10.10 Alcohol abuse, uncomplicated; G93.89 Other specified disorders of brain; G89.29 Other chronic pain; I95.9 Hypotension, unspecified; K76.0 Fatty (change of) liver, not elsewhere classified; M46.02 Spinal enthesopathy, cervical region; F32.9 Major depressive disorder, single episode, unspecified; Y93.89 Activity, other specified; Y92.89 Other specified places as the place of occurrence of the external cause; Y99.8 Other external cause status; Z79.899 Other long term (current) drug therapy; Z79.01 Long term (current) use of anticoagulants; Z86.718 Personal history of other venous thrombosis and embolism; Z87.820 Personal history of traumatic brain injury; Z87.891 Personal history of nicotine dependence; Z95.828 Presence of other vascular implants and grafts; Z80.0 Family history of malignant neoplasm of digestive organs
CPT/HCPCS: 36415; 70450; 70486; 71045; 72125; 80053; 81001; 82553; 83735; 83880; 84484; 85025; 85610; 85730; 87641; 93005; 93971; 96360; 96361; J1650; J7030; 99285-25

== ENCOUNTER → 2019-06-28 | Outpatient (CLI) | payer OTHER, MEDICARE ==
[~2019-06-28] MED LIST changes: +DICL100G18 TP; +DIVA500T4 PO
--- NOTE | 2019-06-28 16:56 | RAD ---
EXAM: Left lower extremity venous Doppler sonogram. HISTORY: DVT follow-up. TECHNIQUE: [place] scale and color Doppler sonographic evaluation of the left lower extremity veins with spectral waveform analysis was performed. FINDINGS: There has been slight interval decrease in nonocclusive thrombus within the left common femoral, superficial femoral, popliteal and posterior tibial veins. The calf veins are not well seen due to soft tissue edema. There is normal color flow, normal compressibility and there are normal spectral waveforms in the greater saphenous vein. IMPRESSION: Slight interval decrease in nonocclusive thrombus throughout the left lower extremity deep veins, with limited evaluation of the calf veins due to soft tissue edema. Electronically signed by: Loren Aguero MD (06/28/2019 4:53 PM) [place] [id number]
== END | disposition home or self-care (01) ==
LOC: US 16:05
PROVIDERS: ATTEND Internal Medicine Hematology & Oncology
DX: I82.402 Acute embolism and thrombosis of unspecified deep veins of left lower extremity (principal)
CPT/HCPCS: 93971

== ENCOUNTER → 2019-09-17 | Outpatient (CLI) | payer OTHER, MEDICARE ==
--- NOTE | 2019-09-17 16:39 | RAD ---
Left lower extremity venous duplex study Clinical History: Lower extremity pain COMPARISON STUDY: Left lower extremity venous duplex ultrasound June 28, 2019 Technique: Using a combination of real time ultrasound imaging and color-flow and pulse Doppler imaging techniques, including spectral analysis, graded compression and augmentation, duplex evaluation of the deep venous system of the left lower extremity was performed. Multiple images were obtained. Findings: Partially occluding thrombus is seen within the left common femoral vein, superficial femoral vein, and posterior tibial veins. This is most evident on compression images were there is lack of complete compression of the affected veins. The overall appearance is similar to comparison study from June 2019. Impression: Partially occlusive, subacute or chronic thrombus within the left common femoral vein, superficial femoral vein, posterior tibial veins. The appearance is similar to prior exam, though the popliteal vein appears somewhat improved in the interim. Electronically signed by: Mike Canales MD (09/17/2019 4:36 PM) [id number]
== END | disposition home or self-care (01) ==
LOC: US 15:53
PROVIDERS: ATTEND Internal Medicine Hematology & Oncology
DX: I82.4Y2 Acute embolism and thrombosis of unspecified deep veins of left proximal lower extremity (principal)
CPT/HCPCS: 93971

== ENCOUNTER 2021-03-13 18:40 | Emergency (ER) | payer MEDICARE, OTHER ==
[~2021-03-13] VITALS: Ht 177.8 cm; Wt 86.4 kg
[~2021-03-13 18:40] MED LIST changes: +AMLO-186 PO; -AMLO5TAB10 PO; +CARB-183 PO; -CARB1TAB2 PO; -DICL100G18 TP; +DICL100G54 TP; +MULT-445 PO; -MULT1TAB52 PO; +SENN-182 PO; -SENN-80 PO
[2021-03-13] MEDS ORDERED: DIVALPROEX DELAYED RELEASE 500 MG TABLET.DR. PO STA (18:51)
--- NOTE | 2021-03-13 19:04 | EKG ---
[facility] [address] [place] [address] Test Date: 2021-03-13 Test Time: 18:45:21 Pat Name: JOSE IGLESIAS Department: Room: Gender: [employer] Instructor: : 1955 Requested By: CASSY RODAS Order Number: [id number] Reading MD: Measurements Intervals [place] Rate: 65 P: TX: QRS: -12 QRSD: 82 T: -1 QT: 432 QTc: 450 Interpretive Statements IRREGULAR RHYTHM, NO P-WAVE FOUND LEFTWARD AXIS INCOMPLETE RIGHT BUNDLE BRANCH BLOCK CONSIDER RIGHT VENTRICULAR HYPERTROPHY T ABNORMALITY IN ANTEROSEPTAL LEADS ABNORMAL ECG RI6.01 No previous ECG available for comparison
[2021-03-13 19:09] LABS: BILIRUBIN,URINE SMALL (NEG); CLARITY,URINE CLEAR; COLOR,URINE AMBER; NITRITE,URINE NEGATIVE (NEG); PH,URINE 5.5 (<5.0-8.0); PROTEIN,URINE NEGATIVE (NEG-TRACE)
[2021-03-13 19:18] LABS: BACTERIA,URINE 0 /HPF (0-FEW); RBC,URINE 0 /HPF (0-2); WBC,URINE 0 /HPF (0-4)
[2021-03-13 20:04] LABS: BASO % 1 % (0-3); EOS # 0.1 x10^3/uL (0.0-0.7); EOS % 1 % (0-3); HEMATOCRIT 40.3 % (39.0-53.0); HEMOGLOBIN 13.8 g/dL (13.0-17.5); LYMPH # 1.7 x10^3/uL (1.0-4.8); LYMPH % 31 % (24-48); MEAN CORPUSCULAR HEMOGLOBIN 32 pg (25-35); MEAN CORPUSCULAR HGB CONC 34 g/dL (31-37); MEAN CORPUSCULAR VOLUME 93 fL (79-100); MONO # 0.7 x10^3/uL (0.0-1.1); MONO % 12 % (0-9); NEUT # 3.1 x10^3/uL (1.8-7.7); NEUT % 56 % (31-73); PLATELET COUNT 181 x10^3/uL (140-400); RED BLOOD COUNT 4.36 x10^6/uL (4.30-5.70); RED CELL DISTRIBUTION WIDTH 14.7 % (11.5-14.5); WHITE BLOOD COUNT 5.6 x10^3/uL (4.0-11.0)
--- NOTE | 2021-03-13 20:08 | RAD ---
Chest AP portable at 1856: Reason for examination: Seizure. The heart size is normal. Mediastinum is unremarkable. Lung moran show some mild focal hazy density at the right lung base possibly representing some early infiltrates or atelectasis. No pleural effusi ons are seen. No acute bony abnormalities are seen. Impression: Mild focal hazy density at the right lung base which may reflect some atelectasis or early infiltrate s. Electronically signed by: Maidson Arellano MD (03/13/2021 8:06 PM) [facility]
[2021-03-13 20:12] LABS: ANION GAP 10 (6-14); BLOOD UREA NITROGEN 18 mg/dL (8-26); BUN/CREATININE RATIO 30 (6-20); CALCIUM 8.6 mg/dL (8.5-10.1); CARBON DIOXIDE 29 mmol/L (21-32); CHLORIDE 108 mmol/L (98-107); CREATININE 0.6 mg/dL (0.7-1.3); GFR 134.8; GLUCOSE 111 mg/dL (70-99); POTASSIUM 3.8 mmol/L (3.5-5.1); SODIUM 147 mmol/L (136-145)
[2021-03-13 20:18] LABS: ALBUMIN 3.3 g/dL (3.4-5.0); ALBUMIN/GLOBULIN RATIO 0.8 (1.0-1.7); ALK PHOS 43 U/L (46-116); ALT (SGPT) 7 U/L (16-63); AST (SGOT) 12 U/L (15-37); MAGNESIUM 1.9 mg/dL (1.8-2.4); TOTAL BILIRUBIN 0.3 mg/dL (0.2-1.0); TOTAL PROTEIN 7.7 g/dL (6.4-8.2)
[2021-03-13 20:19] LABS: VAL ACID 93 mcg/mL (50-100)
[2021-03-13] MEDS ORDERED: IV NORMAL SALINE 1000ML BAG 1,000 ML IV ONE (21:00)
[2021-03-13] MEDS ORDERED: DOXY100T PO (21:34)
--- NOTE | 2021-03-13 21:34 | PHYS DOC ---
Past Medical History Past Medical History: Alcoholism, Anxiety, CVA, Dementia, DVT, High Cholesterol, Hypertension, Other Additional Past Medical Histor: ALCOHOL ABUSE, "TBI", PARKINSON'S, MDD (ADRIANNACASSY Deloris [employer] SERVICE FOOD SERVER) Past Surgical History: Other Additional Past Surgical Histo: "BACK SURGERY" (CASSY RODAS [employer] SERVER) Smoking Status: Former Smoker Alcohol Use: Sober Drug Use: None (TINOLuannCASSY Deloris RO[employer] SERVICE FOOD SERVER) General Adult EDM: Chief Complaint: SEIZURE HPI: HPI: Patient is a 65 year old male with a history of seizures, hypertension, CVA with left-sided paralysis, dementia, alcoholism, presenting today from a long term to be evaluated after having a 30 second seizure that was witnessed by one of the employees. Patient is a poor historian. His paperwork shows he is on Depakote. (CASSY RODAS [employer] SERVER) Review of Systems: Review of Systems: Constitutional: Denies fever or chills. [] Eyes: Denies change in visual acuity. [] HENT: Denies nasal congestion or sore throat. [] Respiratory: Denies cough or shortness of breath. [] Cardiovascular: Denies chest pain or edema. [] GI: Denies abdominal pain, nausea, vomiting, bloody stools or diarrhea. [] : Denies dysuria. [] Musculoskeletal: Denies back pain or joint pain. [] Integument: Denies rash. [] Neurologic: intermediate reports seizure. Denies headache, focal weakness or sensory changes. [] Psychiatric: Denies depression or anxiety. [] (ADRIANNACASSY Deloris [employer] SERV[employer] FO[employer] SERVER) Heart Score: C/O Chest Pain: N/A Risk Factors: Risk Factors: DM, Current or recent (<one month) smoker, HTN, HLP, family history of CAD, obesity. Risk Scores: Score 0 - 3: 2.5% MACE over next 6 weeks - Discharge Home Score 4 - 6: 20.3% MACE over next 6 weeks - Admit for Clinical Observation Score 7 - 10: 72.7% MACE over next 6 weeks - Early Invasive Strategies (JAYNACASSY CUENCA ROOM SERVICE FOOD SERVER) Current Medications: Current Medications Medications (Trade) Dose Ordered Sig/Kenna Start Time Stop Time Status Last Admin Dose Admin Divalproex Sodium (Depakote) 500 mg 1X STAT 03/13/21 18:51 03/13/21 19:00 DC 03/13/21 19:47 500 MG Sodium Chloride 1,000 ml @ 1,000 mls/hr 1X ONCE 03/13/21 21:00 03/13/21 21:59 03/13/21 20:44 1,000 MLS/HR (CASSY RODAS RO[employer] SERVICE FO[employer] SERVER) Allergies: Allergies: Allergies Coded Allergies Type Severity Reaction Last Updated Verified No Known Drug Allergies 12/15/16 No (CASSY RODAS [employer] SERVICE FOOD SERVER) Physical Exam: PE: Constitutional: Well developed, well nourished, no acute distress, non-toxic appearance. [] HENT: Normocephalic, atraumatic, bilateral external ears normal, oropharynx moist, no oral exudates, nose normal. [] Eyes: PERRLA, EOMI, conjunctiva normal, no discharge. [] Neck: Normal range of motion, no tenderness, supple, no stridor. [] Cardiovascular:Heart rate regular rhythm, Lungs & Thorax: Diminished breath sounds Abdomen: Bowel sounds normal, soft, no tenderness, no masses, no pulsatile masses. [] Skin: Dry peeling skin with chronic redness on the left foot Back: No tenderness, no CVA tenderness. [] Extremities: No tenderness, no cyanosis, no clubbing, contracted left upper extremity, paralysis to the left upper extremity and left lower extremity Neurologic: Alert and oriented X 1-2 which is his baseline, normal motor function, normal sensory function, no focal deficits noted. Cranial nerves II through XII intact Psychologic: Affect normal, judgement normal, mood normal. [] (CASSY RODAS RO[employer] SERVICE FOOD SERVER) Current Patient Data: Labs: Laboratory Tests Test 03/13/21 19:00 03/13/21 19:25 Urine Collection Type Unknown Urine Color Summer Urine Clarity Clear Urine pH 5.5 (<5.0-8.0) Urine Specific Sinclair 1.025 (1.000-1.030) Urine Protein Negative mg/dL (NEG-TRACE) Urine Glucose (UA) 100 mg/dL (NEG) Urine Ketones (Stick) Trace mg/dL (NEG) Urine Blood Negative (NEG) Urine Nitrite Negative (NEG) Urine Bilirubin Small (NEG) Urine Urobilinogen Dipstick 1.0 mg/dL (0.2 mg/dL) Urine Leukocyte Esterase Negative (NEG) Urine RBC 0 /HPF (0-2) Urine WBC 0 /HPF (0-4) Urine Transitional Epithelial Cells Few /LPF Urine Bacteria 0 /HPF (0-FEW) Urine Mucus Marked /LPF White Blood Count 5.6 x10^3/uL (4.0-11.0) Red Blood Count 4.36 x10^6/uL (4.30-5.70) Hemoglobin 13.8 g/dL (13.0-17.5) Hematocrit 40.3 % (39.0-53.0) Mean Corpuscular Volume 93 fL (79-100) Mean Corpuscular Hemoglobin 32 pg (25-35) Mean Corpuscular Hemoglobin Concent 34 g/dL (31-37) Red Cell Distribution Width 14.7 % (11.5-14.5) H Platelet Count 181 x10^3/uL (140-400) Neutrophils (%) (Auto) 56 % (31-73) Lymphocytes (%) (Auto) 31 % (24-48) Monocytes (%) (Auto) 12 % (0-9) H Eosinophils (%) (Auto) 1 % (0-3) Basophils (%) (Auto) 1 % (0-3) Neutrophils # (Auto) 3.1 x10^3/uL (1.8-7.7) Lymphocytes # (Auto) 1.7 x10^3/uL (1.0-4.8) Monocytes # (Auto) 0.7 x10^3/uL (0.0-1.1) Eosinophils # (Auto) 0.1 x10^3/uL (0.0-0.7) Basophils # (Auto) 0.0 x10^3/uL (0.0-0.2) Sodium Level 147 mmol/L (136-145) H Potassium Level 3.8 mmol/L (3.5-5.1) Chloride Level 108 mmol/L (98-107) H Carbon Dioxide Level 29 mmol/L (21-32) Anion Gap 10 (6-14) Blood Urea Nitrogen 18 mg/dL (8-26) Creatinine 0.6 mg/dL (0.7-1.3) L Estimated GFR (Cockcroft-Gault) 134.8 BUN/Creatinine Ratio 30 (6-20) H Glucose Level 111 mg/dL (70-99) H Lactic Acid Level 1.3 mmol/L (0.4-2.0) Calcium Level 8.6 mg/dL (8.5-10.1) Magnesium Level 1.9 mg/dL (1.8-2.4) Total Bilirubin 0.3 mg/dL (0.2-1.0) Aspartate Amino Transferase (AST) 12 U/L (15-37) L Alanine Aminotransferase (ALT) 7 U/L (16-63) L Alkaline Phosphatase 43 U/L (46-116) L Troponin I Quantitative < 0.017 ng/mL (0.000-0.055) OR-Ovc-I-Type Natriuretic Peptide 206 pg/mL (0-124) H Total Protein 7.7 g/dL (6.4-8.2) Albumin 3.3 g/dL (3.4-5.0) L Albumin/Globulin Ratio 0.8 (1.0-1.7) L Valproic Acid Level 93 mcg/mL (50-100) Valproic Acid Last Dose Date 03/12/21 Valproic Acid Last Dose Time 2100 Laboratory Tests 03/13/21 19:25 Laboratory Tests 03/13/21 19:25 Vital Signs: Vital Signs Date Time Temp Pulse Resp B/P (MAP) Pulse Ox O2 Delivery O2 Flow Rate FiO2 03/13/21 18:40 98.5 62 18 171/87 (115) 96 Room Air 98.5 (CASSY RODAS RO[employer] SERVICE FOOD SERVER) EKG: EK interpreted by Dr. Bailey sinus rhythm heart rate 65 no STEMI [] (CASSY RODAS ROOM SERVICE FOOD SERVER) Radiology/Procedures: Radiology/Procedures: []PROCEDURE: PORTABLE CHEST 1V Chest AP portable at 1856: Reason for examination: Seizure. The heart size is normal. Mediastinum is unremarkable. Lung moran show some mild focal hazy density at the right lung base possibly representing some early infiltrates or atelectasis. No pleural effusions are seen. No acute bony abnormalities are seen. Impression: Mild focal hazy density at the right lung base which may reflect some atelectasis or early infiltrates. Electronically signed by: Tita Berumen MD (03/13/2021 8:06 PM) [facility] DICTATED and SIGNED BY: TITA BERUMEN MD DATE: 03/13/21 [id number] (CASSY RODAS APRN) Course & Med Decision Making: Course & Med Decision Making Pertinent Labs and Imaging studies reviewed. (See chart for details) This is a 65-year-old male patient with history of seizures on Depakote coming to the ED to be evaluated after having a witnessed seizure at the long term. Patient has dementia as well as CVA with speech deficit and left sided paralysis. CBC with no acute findings, CMP with sodium of 147, lactic is 1.3, chest x-ray shows atelectasis on early pneumonia, patient has no cough or congestion. No fever. Patient was hydrated, sent back to the long term. Follow-up with the long term doctor (CASSY RODAS APRN) Ajith Disclaimer: Ajith Disclaimer: This electronic medical record was generated, in whole or in part, using a voice recognition dictation system. (CASSY RODAS APRN) Departure Departure Impression: Primary Impression: Seizure Additional Impression: Dehydration Disposition: 03 NURSING HOME FACILITY Condition: STABLE Referrals: CLAUS TOTH MD (PCP) FOLLOW UP WITH YOUR DOCTOR NEXT WEEK Patient Instructions: Dehydration, Adult, Onom-tc-Ndsu, Seizure, Adult Additional Instructions: You were evaluated in the emergency room for seizure. Your lactic is normal so you did not have a seizure. You were dehydrated, will give you some fluids. Your chest x-ray shows you are not taking deep breaths or could have early pneumonia. We will put you on antibiotics, take them until completed.. Scripts Doxycycline Hyclate (DOXYCYCLINE HYCLATE) 100 Mg Tablet 1 TAB PO BID, #14 TAB Prov: CASSY RODAS APRN 03/13/21 Attending Signature Attending Signature I have reviewed the PA/WASHING TUB OPERATOR's note and plan of care. I was available for consultation as needed during the patient's visit in the emergency department. I agree with the clinical impression, plan, and disposition. (JERRI BAILEY DO) CASSY RODAS APRN March 13, 2021 21:34 JERRI BAILEY DO March 14, 2021 00:11
[2021-03-13 22:51] VITALS: BP 172/89
== END 2021-03-13 23:09 | disposition home or self-care (01) ==
LOC: ER 18:40
DX: R56.9 Unspecified convulsions (principal); E86.0 Dehydration; F03.90 Unspecified dementia, unspecified severity, without behavioral disturbance, psychotic disturbance, mood disturbance, and anxiety; E78.00 Pure hypercholesterolemia, unspecified; I10 Essential (primary) hypertension; Z87.891 Personal history of nicotine dependence; Z86.718 Personal history of other venous thrombosis and embolism
CPT/HCPCS: 36415; 71045; 80053; 80164; 81001; 83605; 83735; 83880; 84484; 85025; 93005; 96360; 99285; J7030

== ENCOUNTER 2021-10-04 07:58 | Inpatient (IN) | payer MEDICARE, OTHER ==
[~2021-10-04] VITALS: Ht 167.6 cm; Wt 75.6 kg
[~2021-10-04 07:58] MED LIST changes: -BENA40TA3 PO; +BENA40TA74 PO; +DOXY100T PO
[2021-10-04] MEDS ORDERED: IPRATRPIUM/ALBUTEROL 0.5/2.5MG 3 ML NEBU. NEB ONE (08:15)
--- NOTE | 2021-10-04 08:17 | PHYS DOC ---
Past Medical History Past Medical History: Alcoholism, Anxiety, CVA, Dementia, DVT, High Hazel sterol, Hypertension, Other Additional Past Medical Histor: ALCOHOL ABUSE, "TBI", PARKINSON'S, MDD Past Surgical History: Other Additional Past Surgical Histo: "BACK SURGERY" Smoking Status: Former Smoker Alcohol Use: Sober Drug Use: None General Adult EDM: Chief Complaint: SHORTNESS OF BREATH HPI: HPI: Patient is a 66 year old male with history of DVT, COPD, dementia, CVA who presents with hypoxia from nursing facility. They stated his color did not look good this morning and he was satting in the 70s on room air. He does not wear oxygen at baseline. Patient has dementia and has difficulty providing history. At the time of my evaluation, he is denying any pain. However, earlier in the day, he has been noted to complain of both chest pain and left knee pain. He denies any cough or shortness of breath. Documentation shows he is received his Covid vaccination series. MAR shows that he is on apixaban 2.5 mg twice daily. Review of Systems: Review of Systems: Unable to obtain reliable ROS secondary to dementia Heart Score: C/O Chest Pain: N/A Allergies: Allergies: Allergies Coded Allergies Type Severity Reaction Last Updated Verified No Known Drug Allergies 12/15/16 No Physical Exam: PE: Constitutional: Well developed, well nourished, no acute distress, non-toxic appearance. [] HENT: Normocephalic, atraumatic, bilateral external ears normal, oropharynx moist, no oral exudates, nose normal. [] Eyes: PERRLA, EOMI, conjunctiva normal, no discharge. [] Neck: Normal range of motion, no tenderness, supple, no stridor. [] Cardiovascular:Heart rate regular rhythm, no murmur [] Lungs & Thorax: Bilateral expiratory wheezes and diminished air entry. Satting 84% on room air. Stabilized with 3 L/min nasal cannula Abdomen: Soft, nontender Skin: Warm, dry, no erythema, no rash. [] Extremities: No tenderness, no cyanosis, no clubbing, ROM intact, no edema. [] Neurologic: Alert and oriented to self, normal motor function, normal sensory function, no focal deficits noted. [] EKG: EKG: Sinus rhythm. Normal axis. Rate 73. Normal intervals. Mild ST depression and T wave inversion anteriorly. No ST elevation. Radiology/Procedures: Radiology/Procedures: [] Impression: [facility] [address] [place] [address] IMAGING REPORT Signed PATIENT: JOSE IGLESIAS ACCOUNT: [id number] : 1955 LOCATION: ER AGE: 66 SEX: M EXAM STATUS: REG ER ORD. PHYSICIAN: MAYRA DAVENPORT MD REASON: hypoxia, PROCEDURE: CT ANGIOGRAPHY CHEST CTA CHEST History: Hypoxia. Rule out PE. Comparison: None. Technique: CTA of the pulmonary arteries with intravenous contrast. 3-D postprocessing was performed. Findings: Pulmonary arteries: No pulmonary embolism. Aorta and great vessels: No aneurysm or dissection of the aortic arch or thoracic aorta. Thyroid: No significant abnormalities. Mediastinum and chavo: Shotty mediastinal lymph nodes. No enlarged adenopathy. Esophagus: The visualized esophagus is normal. Heart: Heavy coronary artery calcification. Normal heart size. Airways, Lungs, Pleura: Moderate bilateral lower lobe consolidations. No pleural effusion or pneumothorax. Upper abdomen: Limited evaluation of the upper abdomen is unremarkable. Osseous structures and soft tissues: Exaggerated thoracic kyphosis. Healed right posterior rib fractures. Impression: 1. No pulmonary embolism, aortic aneurysm or aortic dissection. 2. Moderate sized bilateral lower lobe consolidations concerning for multifocal pneumonia. ------ Exposure: One or more of the following individualized dose reduction techniques were utilized for this examination: 1. Automated exposure control 2. Adjustment of the mA and/or kV according to patient size 3. Use of iterative reconstruction technique. Electronically signed by: Carson Baugh MD (10/04/2021 10:39 AM) [facility] DICTATED and SIGNED BY: CARSON BAUGH MD DATE: 10/04/21 [id number] Course & Med Decision Making: Course & Med Decision Making Pertinent Labs and Imaging studies reviewed. (See chart for details) Patient is 66-year-old male with history of COPD not on baseline oxygen, DVT on apixaban, dementia who presents with hypoxia from his nursing facility. 84% on room air on arrival, corrects with 3 L/min nasal cannula. The remainder of his vital signs are stable. He does have scattered wheezes on exam raising concern for COPD exacerbation. Will treat with duo nebs. EKG shows mild ST depressions and T wave inversions anteriorly, concerning for acute ischemia. Troponin ordered He is on apixaban for DVT, however PE is not excluded. Will obtain a D-dimer. Chest x-ray to evaluate for pneumonia. Covid swabs ordered. 0817 Dimer was positive, CTA ordered and shows concern for multifocal pneumonia. No evidence of PE. Will treat with ceftriaxone and doxycycline. Troponin negative. With his new oxygen requirement will require hospitalization. [id number] Dragon Disclaimer: Dragjosé Disclaimer: This electronic medical record was generated, in whole or in part, using a voice recognition dictation system. Departure Departure Impression: Primary Impression: Multifocal pneumonia Additional Impression: Dementia Disposition: ADMITTED INPATIENT Admitting Physician: TANIYA CÁRDENAS) Condition: STABLE Referrals: CLAUS TOTH MD (PCP) MAYRA DAVENPORT MD Oct 04, 2021 08:17
--- NOTE | 2021-10-04 08:47 | RAD ---
INDICATION: Reason: hypoxia / Spl. Instructions: / History: COMPARISON: March 2021 FINDINGS: Single view of chest obtained. Cardiomediastinal silhouette is near the upper limits of normal in size. Degenerative changes of the spine. Left-sided perihilar opacity with masslike appearance. IMPRESSION: * Left-sided perihilar masslike opacity. Could be from a region of atelectasis or infiltrate at this location but follow-up will be needed to ensure that this decreases to exclude a mass within the renato g or lymphadenopathy. Electronically signed by: Adán Adam MD (10/04/2021 8:44 AM) [id number]
[2021-10-04 08:52] LABS: BASO % 0 % (0-3); EOS % 0 % (0-3); HEMOGLOBIN 13.1 g/dL (13.0-17.5); LYMPH # 1.2 x10^3/uL (1.0-4.8); LYMPH % 10 % (24-48); MEAN CORPUSCULAR HEMOGLOBIN 31 pg (25-35); MEAN CORPUSCULAR HGB CONC 33 g/dL (31-37); MEAN CORPUSCULAR VOLUME 95 fL (79-100); MONO # 1.7 x10^3/uL (0.0-1.1); MONO % 14 % (0-9); NEUT # 8.9 x10^3/uL (1.8-7.7); NEUT % 76 % (31-73); PLATELET COUNT 189 x10^3/uL (140-400); RED BLOOD COUNT 4.23 x10^6/uL (4.30-5.70); RED CELL DISTRIBUTION WIDTH 13.7 % (11.5-14.5); WHITE BLOOD COUNT 11.8 x10^3/uL (4.0-11.0)
[2021-10-04 08:55] LABS: CALCIUM 8.8 mg/dL (8.5-10.1); CREATININE 0.6 mg/dL (0.7-1.3); GFR 134.4; POTASSIUM 3.6 mmol/L (3.5-5.1)
[2021-10-04 09:01] LABS: ALBUMIN 2.9 g/dL (3.4-5.0); ALBUMIN/GLOBULIN RATIO 0.6 (1.0-1.7); TOTAL BILIRUBIN 1.1 mg/dL (0.2-1.0); TOTAL PROTEIN 7.4 g/dL (6.4-8.2)
[2021-10-04 09:30] LABS: INFLUENZA A PATIENT NEGATIVE (NEGATIVE); INFLUENZA B PATIENT NEGATIVE (NEGATIVE)
[2021-10-04] MEDS ORDERED: IOHEXOL 350 MG/ML 100 ML VIAL. IV ONE (10:00)
[2021-10-04] MEDS ORDERED: CONTRAST GIVEN. MC PRN (10:00)
--- NOTE | 2021-10-04 10:41 | RAD ---
CTA CHEST History: Hypoxia. Rule out PE. Comparison: None. Technique: CTA of the pulmonary arteries with intravenous contrast. 3-D postprocessing was performed. Findings: Pulmonary arteries: No pulmonary embolism. Aorta and great vessels: No aneurysm or dissection of the aortic arch or thoracic aorta. Thyroid: No significant abnormalities. Mediastinum and chavo: Shotty mediastinal lymph nodes. No enlarged adenopathy. Esophagus: The visualized esophagus is normal. Heart: Heavy coronary artery calcification. Normal heart size. Airways, Lungs, Pleura: Moderate bilateral lower lobe consolidations. No pleural effusion or pneumoth orax. Upper abdomen: Limited evaluation of the upper abdomen is unremarkable. Osseous structures and soft tissues: Exaggerated thoracic kyphosis. Healed right posterior rib fractu res. Impression: 1. No pulmonary embolism, aortic aneurysm or aortic dissection. 2. Moderate sized bilateral lower lobe consolidations concerning for multifocal pneumonia. ------ Exposure: One or more of the following individualized dose reduction techniques were utilized for thi s examination: 1. Automated exposure control 2. Adjustment of the mA and/or kV according to patient size 3. Use of iterative reconstruction technique. Electronically signed by: Carson Vasquez MD (10/04/2021 10:39 AM) [facility]
--- NOTE | 2021-10-04 12:07 | PDOC1 ---
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 Upon assessment the morning of 10/04/2021 his O2 saturations were in the mid 70s improved to 92% on 3 L nasal cannula oxygen. Per SNF report patient had complained of chest pain but denied chest pain upon arrival and denies shortness of breath. His complaints are left arm pain and left knee pain and continues to request to have nasal cannula removed from his nose. He was vaccinated for COVID-19 with first dose November 25 21-second dose December 2020. WBC 11.8, Hb 13.1, platelets 189, NA 145, K3.6, BUN 24, CR 0.6, glucose 136, bilirubin 1.1, AST 10, ALT 13, alk phos 40, albumin 2.9, high-sensitivity troponin is 8, NT proBNP 1128, D-dimer 1.66, rapid influenza negative, rapid COVID-19 negative EKG appears to be sinus rhythm rate 73bpm. Normal axis and intervals. Mild ST depression and T wave inversion anteriorly (AVL, V2, V3). No ST elevation. Chest radiograph and left perihilar opacity With elevated D-dimer and history of DVT patient underwent CT pulmonary angiogram with no acute pulmonary embolism or aortic aneurysm or dissection but moderate bilateral lobe consolidations concerning for multifocal pneumonia. Also with healed rib fractures posteriorly on the right. Admitted for further care Past Medical History Cardiovascular: HTN, Hyperlipidemia Pulmonary: COPD CENTRAL NERVOUS SYSTEM: CVA, Dementia, Other GI: No pertinent hx Heme/Onc: No pertinent hx Hepatobiliary: No pertinent hx Psych: Anxiety, Addictions, Depression Rheumatologic: No pertinent hx Infectious disease: Other Renal/: No pertinent hx Endocrine: No pertinent hx Past Surgical History Past Surgical History: Other Family History Family History: No Significant Social History Smoke: No ALCOHOL: none Drugs: None Current Problem List Problem List Problems Medical Problems: (1) Dementia Status: Acute (2) Multifocal pneumonia Status: Acute Current Medications Current Medications Current Medications Albuterol/ Ipratropium (Duoneb) 3 ml 1X ONCE NEB Last administered on 10/04/21at 09:03; Start 10/04/21 at 08:15; Stop 10/04/21 at 08:18; Status DC Iohexol (Omnipaque 350 Mg/ml) 100 ml 1X ONCE IV Last administered on 10/04/21at 10:14; Start 10/04/21 at 10:00; Stop 10/04/21 at 10:01; Status DC Info (CONTRAST GIVEN -- Rx MONITORING) 1 each PRN DAILY PRN MC SEE COMMENTS; Start 10/04/21 at 10:00; Stop 10/06/21 at 09:59 Ceftriaxone Sodium (Rocephin) 1 gm 1X ONCE IVP ; Start 10/04/21 at 12:15; Stop 10/04/21 at 12:16 Doxycycline Hyclate (Vibra-Tab) 100 mg 1X ONCE PO ; Start 10/04/21 at 12:15; Stop 10/04/21 at 12:16 Active Scripts Active Doxycycline Hyclate 100 Mg Tablet 1 Tab PO BID Reported Voltaren (Diclofenac Sodium) 100 Gm Gel..gram. 1 Gm TP PRN Q4HRS PRN Depakote Er (Divalproex Sodium) 500 Mg Tab.er.24h 3 Tab PO QHS Xarelto (Rivaroxaban) 20 Mg Tablet 20 Mg PO DAILY Tylenol (Acetaminophen) 325 Mg Tablet 2 Tab PO Q6HRS Gabapentin (Gabapentin) 100 Mg Capsule 300 Mg PO TID Refresh Optive Eye Drops (Carboxymethylcellulos/Glycerin) 15 Ml Drops 1 Drop EACHEYE TID Nystatin 15 Gm Cream..g. 1 Anisa TP TID Sinemet 25-100 Mg Tablet (Carbidopa/Levodopa) 1 Each Tablet 1 Tab PO TID Baclofen 10 Mg Tablet 20 Mg PO QID Senna (Sennosides) 8.6 Mg Tablet 8.6 Mg PO HS Atorvastatin Calcium 20 Mg Tablet 20 Mg PO HS Donepezil Hcl 5 Mg Tablet 5 Mg PO HS Vitamin D3 (Cholecalciferol (Vitamin D3)) 1,000 Unit Tablet 2 Tab PO DAILY Zoloft (Sertraline Hcl) 100 Mg Tablet 75 Mg PO DAILY Multivitamins (Multivitamin) 1 Each Tablet 1 Tab PO DAILY Amlodipine Besylate 5 Mg Tablet 5 Mg PO DAILY Allergies Allergies: Coded Allergies: No Known Drug Allergies (Unverified , 12/15/16) ROS Review of System An 11-point review of systems is performed, which is otherwise negative besides what is mentioned in the history of present illness. General: YES: Fatigue, Malaise; No: Chills, Night Sweats, Appetite, Other PSYCHOLOGICAL ROS: YES: Behavioral Disorder, Concentration difficultie, Disorientation, Hostility, Irritablity, Memory difficulties; No: Anxiety, Decreased libido, Depression, Hallucinations, Mood Swings, Obsessive thoughts, Physical abuse, Sexual abuse, Sleep disturbances, Suicidal ideation, Other Eyes: No Blurry vision, No Decreased vision, No Double vision, No Dry eyes, No Excessive tearing, No Eye Pain, No Itchy Eyes, No Loss of vision, No Phot ophobia, No Scotomata, No Uses contacts, No Uses glasses, No Other HEENT: No: Heacaches, Visual Changes, Hearing change, Nasal congestion, Nasal discharge, Oral lesions, Sinus pain, Sore Throat, Epistaxis, Sneezing, Snoring, Tinnitus, Vertigo, Vocal changes, Other ALLERGY AND IMMUNOLOGY: No: Hives, Insect Bite Sensitivity, Itchy/Watery Eyes, Nasal Congestion, Post Nasal Drip, Seasonal Allergies, Other Hematological and Lymphatic: YES: Blood Clots; No: Bleeding Problems, Blood Transfusions, Brusing, Night Sweats, Pallor, Swollen Lymph Nodes, Other ENDOCRINE: No: Breast Changes, Galactorrhea, Hair Pattern Changes, Hot Flashes, Malaise/lethargy, Mood Swings, Palpitations, Polydipsia/polyuria, Skin Changes, Temperature Intolerance, Unexpected Weight Changes, Other Breast: No New/Changing Breast Lumps, No Nipple changes, No Nipple discharge, No Other Respiratory: YES: Cough, Orthopnea, Shortness of breath, SOB with excertion, Tachypnea, Wheezing; No: Hemoptysis, Pleuritic Pain, Sputum Changes, Stridor, Other Cardiovascular: No Chest Pain, No Palpitations, No Orthopnea, No Paroxysmal Noc. Dyspnea, No Edema, No Lt Headedness, No Other Gastrointestinal: No Nausea, No Vomiting, No Abdominal Pain, No Diarrhea, No Constipation, No Melena, No Hematochezia, No Other Genitourinary: No Dysuria, No Frequency, No Incontinence, No Hematuria, No Retention, No Discharge, No Urgency, No Pain, No Flank Pain, No Other, No , No , No , No , No , No , No Musculoskeletal: No Gait Disturbance, No Joint Pain, No Joint Stiffness, No Joint Swelling, No Muscle Pain, No Muscular Weakness, No Pain In:, No Swelling In:, No Other Neurological: Yes Confusion; No Behavorial Changes, No Bowel/Bladder ControlChng, No Dizziness, No Gait Disturbance, No Headaches, No Impaired Coord/balance, No Memory Loss, No Numbness/Tingling, No Seizures, No Speech Problems, No Tremors, No Visual Changes, No Weakness, No Other Skin: No Dry Skin, No Eczema, No Hair Changes, No Lumps, No Mole Changes, No Mottling, No Nail Changes, No Pruritus, No Rash, No Skin Lesion Changes, No Other, No Acne Physical Exam General: Alert, mild distress HEENT: Atraumatic, PERRLA, EOMI, Mucous membr. moist/pink Lungs: Other (bilateral crackles) Heart: S1S2, RRR, no thrills, no rubs, no gallops, no murmurs Abdomen: Normal bowel sounds, Soft, No tenderness, No hepatosplenomegaly, No masses Extremities: No clubbing, No cyanosis, Normal pulses, Other (edema bilateral feet) Skin: No significant lesion Neuro: Other (Increased tone on left, contractures of left arm and leg) Psych/Mental Status: Other (Verbally abusive and combative with right arm) Vitals Vitals Vital Signs Date Time Temp Pulse Resp B/P (MAP) Pulse Ox O2 Delivery O2 Flow Rate FiO2 10/04/21 11:48 72 20 121/66 (84) 94 Nasal Cannula 3.0 10/04/21 07:58 98.3 98.3 Labs Labs Laboratory Tests Test 10/04/21 08:20 10/04/21 08:35 White Blood Count 11.8 x10^3/uL (4.0-11.0) Red Blood Count 4.23 x10^6/uL (4.30-5.70) Hemoglobin 13.1 g/dL (13.0-17.5) Hematocrit 40.0 % (39.0-53.0) Mean Corpuscular Volume 95 fL (79-100) Mean Corpuscular Hemoglobin 31 pg (25-35) Mean Corpuscular Hemoglobin Concent 33 g/dL (31-37) Red Cell Distribution Width 13.7 % (11.5-14.5) Platelet Count 189 x10^3/uL (140-400) Neutrophils (%) (Auto) 76 % (31-73) Lymphocytes (%) (Auto) 10 % (24-48) Monocytes (%) (Auto) 14 % (0-9) Eosinophils (%) (Auto) 0 % (0-3) Basophils (%) (Auto) 0 % (0-3) Neutrophils # (Auto) 8.9 x10^3/uL (1.8-7.7) Lymphocytes # (Auto) 1.2 x10^3/uL (1.0-4.8) Monocytes # (Auto) 1.7 x10^3/uL (0.0-1.1) Eosinophils # (Auto) 0.0 x10^3/uL (0.0-0.7) Basophils # (Auto) 0.0 x10^3/uL (0.0-0.2) D-Dimer (Sarah) 1.66 ug/mlFEU (0.00-0.50) Sodium Level 145 mmol/L (136-145) Potassium Level 3.6 mmol/L (3.5-5.1) Chloride Level 104 mmol/L (98-107) Carbon Dioxide Level 27 mmol/L (21-32) Anion Gap 14 (6-14) Blood Urea Nitrogen 24 mg/dL (8-26) Creatinine 0.6 mg/dL (0.7-1.3) Estimated GFR (Cockcroft-Gault) 134.4 BUN/Creatinine Ratio 40 (6-20) Glucose Level 136 mg/dL (70-99) Calcium Level 8.8 mg/dL (8.5-10.1) Total Bilirubin 1.1 mg/dL (0.2-1.0) Aspartate Amino Transf (AST/SGOT) 10 U/L (15-37) Alanine Aminotransferase (ALT/SGPT) 13 U/L (16-63) Alkaline Phosphatase 40 U/L (46-116) Troponin I High Sensitivity 8 ng/L (4-75) VU-Wwp-S-Type Natriuretic Peptide 1128 pg/mL (0-124) Total Protein 7.4 g/dL (6.4-8.2) Albumin 2.9 g/dL (3.4-5.0) Albumin/Globulin Ratio 0.6 (1.0-1.7) Influenza Type A Antigen Negative (NEGATIVE) Influenza Type B Antigen Negative (NEGATIVE) SARS-CoV-2 Antigen (Rapid) Negative (NEGATIVE) Laboratory Tests Test 10/04/21 08:20 10/04/21 08:35 White Blood Count 11.8 x10^3/uL (4.0-11.0) Red Blood Count 4.23 x10^6/uL (4.30-5.70) Hemoglobin 13.1 g/dL (13.0-17.5) Hematocrit 40.0 % (39.0-53.0) Mean Corpuscular Volume 95 fL (79-100) Mean Corpuscular Hemoglobin 31 pg (25-35) Mean Corpuscular Hemoglobin Concent 33 g/dL (31-37) Red Cell Distribution Width 13.7 % (11.5-14.5) Platelet Count 189 x10^3/uL (140-400) Neutrophils (%) (Auto) 76 % (31-73) Lymphocytes (%) (Auto) 10 % (24-48) Monocytes (%) (Auto) 14 % (0-9) Eosinophils (%) (Auto) 0 % (0-3) Basophils (%) (Auto) 0 % (0-3) Neutrophils # (Auto) 8.9 x10^3/uL (1.8-7.7) Lymphocytes # (Auto) 1.2 x10^3/uL (1.0-4.8) Monocytes # (Auto) 1.7 x10^3/uL (0.0-1.1) Eosinophils # (Auto) 0.0 x10^3/uL (0.0-0.7) Basophils # (Auto) 0.0 x10^3/uL (0.0-0.2) D-Dimer (Sarah) 1.66 ug/mlFEU (0.00-0.50) Sodium Level 145 mmol/L (136-145) Potassium Level 3.6 mmol/L (3.5-5.1) Chloride Level 104 mmol/L (98-107) Carbon Dioxide Level 27 mmol/L (21-32) Anion Gap 14 (6-14) Blood Urea Nitrogen 24 mg/dL (8-26) Creatinine 0.6 mg/dL (0.7-1.3) Estimated GFR (Cockcroft-Gault) 134.4 BUN/Creatinine Ratio 40 (6-20) Glucose Level 136 mg/dL (70-99) Calcium Level 8.8 mg/dL (8.5-10.1) Total Bilirubin 1.1 mg/dL (0.2-1.0) Aspartate Amino Transf (AST/SGOT) 10 U/L (15-37) Alanine Aminotransferase (ALT/SGPT) 13 U/L (16-63) Alkaline Phosphatase 40 U/L (46-116) Troponin I High Sensitivity 8 ng/L (4-75) RA-Dgs-Z-Type Natriuretic Peptide 1128 pg/mL (0-124) Total Protein 7.4 g/dL (6.4-8.2) Albumin 2.9 g/dL (3.4-5.0) Albumin/Globulin Ratio 0.6 (1.0-1.7) Influenza Type A Antigen Negative (NEGATIVE) Influenza Type B Antigen Negative (NEGATIVE) SARS-CoV-2 Antigen (Rapid) Negative (NEGATIVE) Images Images Chest radiograph: Single view of chest obtained. Cardiomediastinal silhouette is near the upper limits of normal in size. Degenerative changes of the spine. Left-sided perihilar opacity with masslike appearance. IMPRESSION: * Left-sided perihilar masslike opacity. Could be from a region of atelectasis or infiltrate at this location but follow-up will be needed to ensure that this decreases to exclude a mass within the lung or lymphadenopathy. CTPA: Pulmonary arteries: No pulmonary embolism. Aorta and great vessels: No aneurysm or dissection of the aortic arch or thoraci c aorta. Thyroid: No significant abnormalities. Mediastinum and chavo: Shotty mediastinal lymph nodes. No enlarged adenopathy. Esophagus: The visualized esophagus is normal. Heart: Heavy coronary artery calcification. Normal heart size. Airways, Lungs, Pleura: Moderate bilateral lower lobe consolidations. No pleural effusion or pneumothorax. Upper abdomen: Limited evaluation of the upper abdomen is unremarkable. Osseous structures and soft tissues: Exaggerated thoracic kyphosis. Healed right posterior rib fractures. Impression: 1. No pulmonary embolism, aortic aneurysm or aortic dissection. 2. Moderate sized bilateral lower lobe consolidations concerning for multifocal pneumonia. VTE Prophylaxis Ordered VTE Prophylaxis Devices: Yes VTE Pharmacological Prophylaxi: Yes Assessment/Plan Assessment/Plan A/P: Acute respiratory failure with hypoxia - not normally on O2. Will cover for pneumonia with rocephin, doxy. IV lasix for concern for fluid overload History of hemorrhagic right stroke requiring craniotomy with chronic symptoms of left-sided paralysis. Abnormal CT chest - bibasilar consolidations could be pneumonia, but with elevated BNP and hypoxia could be pulmonary edema given dependent appearance on CT, will diurese. Leukocytosis - with left shift and increased respirations and suspicion for p neumonia treating for SIRS/Sepsis. With hypoxia and concern for possible pulm edema, hold off on fluids EKG changes - subtle anterior TWI which appear new, though the quality of his most recent EKG is difficult to interpret this is new since 2019 Hypertension - cont home meds Hyperlipidemia - cont statin COPD - nebs prn and scheduled. Not clear if this is a COPD exacerbation, looks more like CHF at this time, less suspicious for pneumonia Dementia - due to hemorrhagic CVA and parkinson disease Parkinson's disease - will cont sinemet History of tobacco and alcohol abuse. Left leg and arm contracture - s/p CVA in 2017, has soft AFO on left foot and on left wrist H/o Left leg DVT s/p IVC filter Encephalomalacia post stroke Degenerative disc disease Incontinence Anxiety and depression Chronic pain History of right ankle MRSA infection, status post hardware removal summer Onychomycosis dry skin Chronic left hip pain FEN - Dysphagia diet PPX - lovenox, will confirm if he is on eliquis CODE - DNR/DNI Dispo - inpatient for above Justifications for Admission Other Justification VALENTÍN CHARLES MD Oct 04, 2021 12:07
[2021-10-04] MEDS ORDERED: cefTRIAXone IV Push 1 GM VIAL. IVP ONE (12:15)
[2021-10-04] MEDS ORDERED: DOXYCYCLINE HYCLATE 100 MG TABLET PO ONE (12:15)
[2021-10-04] MEDS ORDERED: ONDANSETRON PF 4 MG/2 ML VIAL. IVP PRN (17:15)
[2021-10-04] MEDS ORDERED: FUROSEMIDE 40 MG/4 ML VIAL. IVP ONE (17:15)
[2021-10-04] MEDS ORDERED: guaiFENesin DM 200MG/20MG 10 ML SYRUP PO PRN (17:15)
[2021-10-04] MEDS ORDERED: ACETAMINOPHEN 325 MG TABLET. PO PRN (17:15)
[2021-10-04] MEDS ORDERED: ALBUTEROL SULFATE 2.5 MG/3 ML NEBU. NEB PRN (17:15)
[2021-10-04] MEDS ORDERED: HALOPERIDOL LACTATE 5 MG/ML VIAL. IVP PRN (18:15)
[2021-10-04] MEDS: DOXYCYCLINE HYCLATE 100 MG TABLET PO SCH (19:00)
[2021-10-04] MEDS ORDERED: CLOP75TA PO (19:03)
[2021-10-04] MEDS ORDERED: APIX2.5T PO (19:03)
[2021-10-04] MEDS ORDERED: DICLOFENAC SODIUM 1% TOPICAL GEL 100GM TUBE. TP PRN (19:15)
[2021-10-04] MEDS ORDERED: POLYVINYL ALCOHOL 1.4% OPHTH SOLUTION 15ML BOTTLE. OU PRN (19:30)
[2021-10-04 19:45] VITALS: BP 127/79
[2021-10-04] MEDS: BUDESONIDE 0.5 MG/2 ML NEBU. NEB SCH (20:24)
[2021-10-04] MEDS: IPRATRPIUM/ALBUTEROL 0.5/2.5MG 3 ML NEBU. NEB SCH (20:24)
[2021-10-04] MEDS: APIXABAN 2.5 MG TABLET. PO SCH (21:00)
[2021-10-04] MEDS: GABAPENTIN 100 MG CAPSULE. PO SCH (21:00)
[2021-10-04] MEDS: BACLOFEN 10 MG TABLET. PO SCH (21:00)
[2021-10-04] MEDS: CARBIDOPA/LEVODOPA 25/100MG TABLET PO SCH (21:00)
[2021-10-04] MEDS: ATORVASTATIN CALCIUM 20 MG TABLET PO SCH (21:00)
[2021-10-04] MEDS: SENNOSIDES 8.6 MG TABLET PO SCH (21:00)
[2021-10-04] MEDS: DIVALPROEX DELAYED RELEASE 250 MG TABLET.DR. PO SCH (21:00)
[2021-10-05 03:59] VITALS: BP 113/62
[2021-10-05 07:00] VITALS: BP 109/70
[2021-10-05 07:11] LABS: BASO % 0 % (0-3); EOS % 1 % (0-3); HEMOGLOBIN 12.4 g/dL (13.0-17.5); LYMPH # 1.3 x10^3/uL (1.0-4.8); LYMPH % 17 % (24-48); MEAN CORPUSCULAR HEMOGLOBIN 32 pg (25-35); MEAN CORPUSCULAR HGB CONC 34 g/dL (31-37); MEAN CORPUSCULAR VOLUME 94 fL (79-100); MONO % 12 % (0-9); NEUT # 5.4 x10^3/uL (1.8-7.7); NEUT % 70 % (31-73); PLATELET COUNT 191 x10^3/uL (140-400); RED BLOOD COUNT 3.92 x10^6/uL (4.30-5.70); RED CELL DISTRIBUTION WIDTH 13.5 % (11.5-14.5); WHITE BLOOD COUNT 7.7 x10^3/uL (4.0-11.0)
[2021-10-05 07:24] LABS: ALBUMIN 2.7 g/dL (3.4-5.0); ALBUMIN/GLOBULIN RATIO 0.6 (1.0-1.7); CALCIUM 8.8 mg/dL (8.5-10.1); CREATININE 0.7 mg/dL (0.7-1.3); GFR 112.5; POTASSIUM 3.1 mmol/L (3.5-5.1); TOTAL BILIRUBIN 0.9 mg/dL (0.2-1.0)
[2021-10-05] MEDS: BUDESONIDE 0.5 MG/2 ML NEBU. NEB SCH ×2 (08:22→20:19)
[2021-10-05] MEDS: IPRATRPIUM/ALBUTEROL 0.5/2.5MG 3 ML NEBU. NEB SCH ×4 (08:22→20:19)
[2021-10-05] MEDS: APIXABAN 2.5 MG TABLET. PO SCH ×2 (09:05→21:22)
[2021-10-05] MEDS: CARBIDOPA/LEVODOPA 25/100MG TABLET PO SCH ×3 (09:05→21:22)
[2021-10-05] MEDS: BACLOFEN 10 MG TABLET. PO SCH ×4 (09:05→21:20)
[2021-10-05] MEDS: GABAPENTIN 100 MG CAPSULE. PO SCH ×3 (09:06→21:21)
[2021-10-05] MEDS: MULTIVITAMIN with MINERAL TABLET. PO SCH (09:06)
[2021-10-05] MEDS: CLOPIDOGREL BISULFATE 75 MG TABLET PO SCH (09:06)
[2021-10-05] MEDS: SERTRALINE 25 MG TABLET. PO SCH (09:06)
[2021-10-05] MEDS: DOXYCYCLINE HYCLATE 100 MG TABLET PO SCH ×2 (09:06→21:20)
[2021-10-05 11:00] VITALS: BP 109/70
--- NOTE | 2021-10-05 11:45 | PDOC ---
[employer] PROGRESS NOTE Date of Service DOS: DATE: 10/05/21 TIME: 11:37 Chief Complaint Chief Complaint Hypoxia Pneumonia Leukocytosis Altered mental status Dehydration Elevated BUN Hemorrhagic CVA 2017 s/p craniotomy with residual left-sided weakness Parkinson disease with dementia LLE DVT s/p IVC filter placement HTN HLD COPD Left leg and arm contractures Urinary incontinence Tobacco abuse History of Present Illness History of Present Illness 10/05/2021 Patient seen and examined Chart reviewed Discussed with RN Patient is satting well on RA. In NAD. Patient receiving Rocephin and doxycycline Also on Lasix for possible acute CHF Cardiology is following. Pt to receive ECHO today. Vitals/I&O Vitals/I&O: Vital Signs Date Time Temp Pulse Resp B/P (MAP) Pulse Ox O2 Delivery O2 Flow Rate FiO2 10/05/21 09:05 67 113/62 10/05/21 08:31 92 Room Air 10/05/21 03:59 98.1 16 98.1 10/04/21 19:45 3.0 I & O 10/04/21 10/04/21 10/05/21 15:00 23:00 07:00 Intake Total 0 ml 0 ml Balance 0 ml 0 ml Physical Exam General: Alert, No acute distress Heart: Regular rate, Normal S1, Normal S2 Lungs: Clear, Other Abdomen: Soft Extremities: No clubbing Skin: No significant lesion Labs Labs: Laboratory Tests Test 10/05/21 06:05 White Blood Count 7.7 x10^3/uL (4.0-11.0) Red Blood Count 3.92 x10^6/uL (4.30-5.70) Hemoglobin 12.4 g/dL (13.0-17.5) Hematocrit 37.0 % (39.0-53.0) Mean Corpuscular Volume 94 fL (79-100) Mean Corpuscular Hemoglobin 32 pg (25-35) Mean Corpuscular Hemoglobin Concent 34 g/dL (31-37) Red Cell Distribution Width 13.5 % (11.5-14.5) Platelet Count 191 x10^3/uL (140-400) Neutrophils (%) (Auto) 70 % (31-73) Lymphocytes (%) (Auto) 17 % (24-48) Monocytes (%) (Auto) 12 % (0-9) Eosinophils (%) (Auto) 1 % (0-3) Basophils (%) (Auto) 0 % (0-3) Neutrophils # (Auto) 5.4 x10^3/uL (1.8-7.7) Lymphocytes # (Auto) 1.3 x10^3/uL (1.0-4.8) Monocytes # (Auto) 1.0 x10^3/uL (0.0-1.1) Eosinophils # (Auto) 0.0 x10^3/uL (0.0-0.7) Basophils # (Auto) 0.0 x10^3/uL (0.0-0.2) Sodium Level 141 mmol/L (136-145) Potassium Level 3.1 mmol/L (3.5-5.1) Chloride Level 102 mmol/L (98-107) Carbon Dioxide Level 29 mmol/L (21-32) Anion Gap 10 (6-14) Blood Urea Nitrogen 27 mg/dL (8-26) Creatinine 0.7 mg/dL (0.7-1.3) Estimated GFR (Cockcroft-Gault) 112.5 BUN/Creatinine Ratio 39 (6-20) Glucose Level 114 mg/dL (70-99) Calcium Level 8.8 mg/dL (8.5-10.1) Magnesium Level 2.0 mg/dL (1.8-2.4) Total Bilirubin 0.9 mg/dL (0.2-1.0) Aspartate Amino Transf (AST/SGOT) 11 U/L (15-37) Alanine Aminotransferase (ALT/SGPT) 16 U/L (16-63) Alkaline Phosphatase 42 U/L (46-116) Troponin I High Sensitivity 7 ng/L (4-75) Total Protein 7.0 g/dL (6.4-8.2) Albumin 2.7 g/dL (3.4-5.0) Albumin/Globulin Ratio 0.6 (1.0-1.7) Assessment and Plan Assessmemt and Plan Problems Medical Problems: (1) Dementia Status: Acute (2) Multifocal pneumonia Status: Acute Hypoxia Pneumonia Leukocytosis Altered mental status Dehydration Elevated BUN Hemorrhagic CVA 2017 s/p craniotomy with residual left-sided weakness Parkinson disease with dementia LLE DVT s/p IVC filter placement HTN HLD COPD Left leg and arm contractures Urinary incontinence Tobacco abuse Plan: Continue antibiotics Continue Lasix ECHO today per cardiology Appreciate cardiology input Trend labs DVT prophylaxis Home meds DNR (DPOA) declined PT/OT Probable discharge to healthcare resort in 1-2 days Comment Review of Relevant I have reviewed the following items jose alfredo (where applicable) has been applied. Medications: Current Medications Medications (Trade) Dose Ordered Sig/Kenna Route PRN Reason Start Time Stop Time Status Last Admin Dose Admin Ceftriaxone Sodium (Rocephin) 1 gm 1X ONCE IVP 10/04/21 12:15 10/04/21 12:16 DC 10/04/21 12:18 Doxycycline Hyclate (Vibra-Tab) 100 mg 1X ONCE PO 10/04/21 12:15 10/04/21 12:16 DC 10/04/21 12:17 Budesonide (Pulmicort) 0.5 mg RTBID NEB 10/04/21 20:00 10/05/21 08:22 Albuterol/ Ipratropium (Duoneb) 3 ml RTQID NEB 10/04/21 20:00 10/05/21 08:22 Furosemide (Lasix) 40 mg 1X ONCE IVP 10/04/21 17:15 10/04/21 17:27 DC 10/04/21 18:45 Doxycycline Hyclate (Vibra-Tab) 100 mg BID PO 10/04/21 19:00 10/05/21 09:06 Amlodipine Besylate (Norvasc) 5 mg DAILY PO 10/05/21 09:00 10/05/21 09:05 Apixaban (Eliquis) 2.5 mg BID PO 10/04/21 21:00 10/05/21 09:05 Baclofen (Lioresal) 20 mg QID PO 10/04/21 21:00 10/05/21 09:05 Carbidopa/Levodopa (Sinemet 25/100) 1 tab TID PO 10/04/21 21:00 10/05/21 09:05 Clopidogrel Bisulfate (Plavix) 75 mg DAILY PO 10/05/21 09:00 10/05/21 09:06 Gabapentin (Neurontin) 300 mg TID PO 10/04/21 21:00 10/05/21 09:06 Multivitamins (Thera M Plus) 1 tab DAILY PO 10/05/21 09:00 10/05/21 09:06 Sertraline HCl (Zoloft) 75 mg DAILY PO 10/05/21 09:00 10/05/21 09:06 Justifications for Admission Other Justification RUSSELL SUNSHINE III DO Oct 05, 2021 11:45
[2021-10-05] MEDS ORDERED: POTASSIUM BICARB 20 MEQ EFFERVESCENT TABLET. PO ONE (12:45)
--- NOTE | 2021-10-05 12:47 | PDOC2 ---
CARDIAC CONSULT DATE OF CONSULT Date of Consult DATE: 10/05/21 TIME: 12:16 REASON FOR CONSULT Reason for Consult: CHF, abnormal EKG REFERRING PHYSICIAN Referring Physician: Dr. Jung SOURCE Source: Chart review, Patient HISTORY OF PRESENT ILLNESS HISTORY OF PRESENT ILLNESS This is a 66 yo male who presented from nursing facility secondary to shortness breath, hypoxia, and chest pain. Patient has a history of hemorrhagic stroke, Parkinson's, and dementia. Is more confused today than baseline per . Is unable to tell me what brought him into the ED. Denies any present chest pain. Unsure if he experience chest pain yesterday. Reports pain in his left jaw/teeth today. Denies any present shortness of breath, dizziness, diaphoresis, or nausea/vomiting. Is asking for ice cream. does not know specific of pain experienced yesterday. No previous history of CAD of CHF. Does have HTN and HLP. PAST MEDICAL HISTORY Cardiovascular: HTN, Hyperlipidemia Pulmonary: COPD CENTRAL NERVOUS SYSTEM: CVA (hemorrhagic CVA 2017 s/p craniotomy with residual left-sided weakness), Dementia, Other ( Parkinson disease ) GI: GERD Heme/Onc: Other (DVT s/p IVC filter ) Psych: Anxiety, Depression PAST SURGICAL HISTORY Past Surgical History: Total knee replacement (right ), Other (see PMH) FAMILY HISTORY Family History: Heart Disease SOCIAL HISTORY Smoke: Quit ALCOHOL: none Drugs: None Lives: Residential CURRENT MEDICATIONS CURRENT MEDICATIONS Current Medications Medications (Trade) Dose Ordered Sig/Kenna Route PRN Reason Start Time Stop Time Status Last Admin Dose Admin Budesonide (Pulmicort) 0.5 mg RTBID [facility] [place] 10/04/21 20:00 10/05/21 08:22 Albuterol/ Ipratropium (Duoneb) 3 ml RTQID [facility] [place] 10/04/21 20:00 10/05/21 12:09 Furosemide (Lasix) 40 mg 1X ONCE IVP 10/04/21 17:15 10/04/21 17:27 DC 10/04/21 18:45 Doxycycline Hyclate (Vibra-Tab) 100 mg BID PO 10/04/21 19:00 10/05/21 09:06 Amlodipine Besylate (Norvasc) 5 mg DAILY PO 10/05/21 09:00 10/05/21 09:05 Apixaban (Eliquis) 2.5 mg BID PO 10/04/21 21:00 10/05/21 09:05 Baclofen (Lioresal) 20 mg QID PO 10/04/21 21:00 10/05/21 09:05 Carbidopa/Levodopa (Sinemet 25/100) 1 tab TID PO 10/04/21 21:00 10/05/21 09:05 Clopidogrel Bisulfate (Plavix) 75 mg DAILY PO 10/05/21 09:00 10/05/21 09:06 Gabapentin (Neurontin) 300 mg TID PO 10/04/21 21:00 10/05/21 09:06 Multivitamins (Thera M Plus) 1 tab DAILY PO 10/05/21 09:00 10/05/21 09:06 Sertraline HCl (Zoloft) 75 mg DAILY PO 10/05/21 09:00 10/05/21 09:06 ALLERGIES ALLERGIES: Coded Allergies: No Known Drug Allergies (Unverified , 12/15/16) ROS Review of System 14 point ROS conducted with pertinent positives noted above in HPI, although limited due to dementia, confusion. PHYSICAL EXAM General: Alert, Cooperative, No acute distress HEENT: Atraumatic, Mucous membr. moist/pink Lungs: Other (diminished bases) Heart: Regular rate Abdomen: Soft Extremities: No edema Neuro: Normal speech, Other (left sided weakness ) Psych/Mental Status: Mood NL, Other (confused ) MUSCULOSKELETAL: Osteoarthritic changes both hands VITALS/I&O VITALS/I&O: Vital Signs Date Time Temp Pulse Resp B/P (MAP) Pulse Ox O2 Delivery O2 Flow Rate FiO2 10/05/21 12:12 Room Air 10/05/21 09:05 67 113/62 10/05/21 08:31 92 10/05/21 03:59 98.1 16 98.1 10/04/21 19:45 3.0 I & O 10/04/21 10/04/21 10/05/21 14:59 22:59 06:59 Intake Total 0 ml 0 ml Balance 0 ml 0 ml LABS Lab: Laboratory Tests Test 10/05/21 06:05 White Blood Count 7.7 x10^3/uL (4.0-11.0) Red Blood Count 3.92 x10^6/uL (4.30-5.70) L Hemoglobin 12.4 g/dL (13.0-17.5) L Hematocrit 37.0 % (39.0-53.0) L Mean Corpuscular Volume 94 fL (79-100) Mean Corpuscular Hemoglobin 32 pg (25-35) Mean Corpuscular Hemoglobin Concent 34 g/dL (31-37) Red Cell Distribution Width 13.5 % (11.5-14.5) Platelet Count 191 x10^3/uL (140-400) Neutrophils (%) (Auto) 70 % (31-73) Lymphocytes (%) (Auto) 17 % (24-48) L Monocytes (%) (Auto) 12 % (0-9) H Eosinophils (%) (Auto) 1 % (0-3) Basophils (%) (Auto) 0 % (0-3) Neutrophils # (Auto) 5.4 x10^3/uL (1.8-7.7) Lymphocytes # (Auto) 1.3 x10^3/uL (1.0-4.8) Monocytes # (Auto) 1.0 x10^3/uL (0.0-1.1) Eosinophils # (Auto) 0.0 x10^3/uL (0.0-0.7) Basophils # (Auto) 0.0 x10^3/uL (0.0-0.2) Sodium Level 141 mmol/L (136-145) Potassium Level 3.1 mmol/L (3.5-5.1) L Chloride Level 102 mmol/L (98-107) Carbon Dioxide Level 29 mmol/L (21-32) Anion Gap 10 (6-14) Blood Urea Nitrogen 27 mg/dL (8-26) H Creatinine 0.7 mg/dL (0.7-1.3) Estimated GFR (Cockcroft-Gault) 112.5 BUN/Creatinine Ratio 39 (6-20) H Glucose Level 114 mg/dL (70-99) H Calcium Level 8.8 mg/dL (8.5-10.1) Magnesium Level 2.0 mg/dL (1.8-2.4) Total Bilirubin 0.9 mg/dL (0.2-1.0) Aspartate Amino Transferase (AST) 11 U/L (15-37) L Alanine Aminotransferase (ALT) 16 U/L (16-63) Alkaline Phosphatase 42 U/L (46-116) L Troponin I High Sensitivity 7 ng/L (4-75) Total Protein 7.0 g/dL (6.4-8.2) Albumin 2.7 g/dL (3.4-5.0) L Albumin/Globulin Ratio 0.6 (1.0-1.7) L Laboratory Tests 10/05/21 06:05 Laboratory Tests 10/05/21 06:05 ASSESSMENT/PLAN ASSESSMENT/PLAN 1. Acute respiratory failure, probable PNA, mild acute probable diastolic CHF. s/p IV Lasix 2. Chest pain, details unknown. AMI ruled out 3. H/o hemorrhagic CVA s/p craniotomy; residual left-sided weakness 4. Parkinson disease, dementia 5. Hypertension; controlled 6. Hyperlipidemia; statin 7. Leukocytosis 8. Elevated D-dimer; CTA negative for PE 9. H/o DVT on Eliquis 10. Hypokalemia Recommendations Replace K Check Mg and replace as warranted Echo to assess LV systolic function Lipids Secondary prevention measures Ongoing lung optimization, treatment of PNA Supportive care YAN MARTINEZ APRN Oct 05, 2021 12:47
[2021-10-05 12:54] LABS: CHOLESTEROL/HDL RATIO 5.7
[2021-10-05] MEDS: cefTRIAXone IV Push 1 GM VIAL. IVP SCH (13:17)
[2021-10-05] MEDS: CHOLECALCIFEROL (VITAMIN D3) 1,000 UNIT TABLET PO SCH (13:18)
--- NOTE | 2021-10-05 13:18 | NUR ---
SW following. Discussed with RN. OSMIN verified pt is a [facility] heaterman care resident at [facility], room air, regular diet, COVID-19 and Flu negative. Cardiology following. Pt currently on IV abx. OSMIN will continue to follow.
[2021-10-05 15:00] VITALS: BP 111/69
--- NOTE | 2021-10-05 17:53 | NUR ---
Wound Care Wound Type/Assessment: Consult to eval and treat wound to L lateral ankle. Pt at bedside and states that he had surgery on his left ankle about 5 years ago and the hardware had become infected shortly thereafter. states that he has not had any recurrent breakdown in the area until now. At present there is no imaging to assess the presentation of the hardware. Pt periarea is red and moist, cleansed and dried. L ankle wound is unstageable, and true etiology uncertain without imaging; covered with dry, fluctuant slough, scant amount of bright red drainage, and raised, fluctuant red margins. Pt jerks foot away during assessment due to pain. Pt also has a left sided deficit due to stroke and his left leg rotates outward while in bed. No other open areas noted on head to toe assessment. Treatment Recommendations/Plan: L ankle: Cleanse and pat dry. Apply therahoney gel, xeroform, and foam dressing. Change every 2-3 days. Groin folds: Clean and pat dry. Apply nystatin powder BID Education provided: present at bedside for teaching regarding offloading, assistive devices, and pressure relief. Offloading surface/device: Purple wedge for positioning, heel medic boot to L foot with wedge to prevent external rotation Recommended Referrals/Tests: Consult to Dr. Vela for wound care and possible bedside debridement. Recommend xray of L ankle hardware. Discharge Recommendations for dressings: As above
[2021-10-05 19:00] VITALS: BP 118/77
[2021-10-05] MEDS: NYSTATIN TOPICAL POWDER 15GM BOTTLE. TP SCH (21:00)
[2021-10-05] MEDS: ATORVASTATIN CALCIUM 20 MG TABLET PO SCH (21:20)
[2021-10-05] MEDS: SENNOSIDES 8.6 MG TABLET PO SCH (21:21)
[2021-10-05] MEDS: DIVALPROEX DELAYED RELEASE 250 MG TABLET.DR. PO SCH (21:22)
[2021-10-05] MEDS: LACTOBACILLUS RHAMNOSUS GG 1 CAPSULE. PO SCH (21:22)
[2021-10-05 23:00] VITALS: BP 108/66
[2021-10-06 03:00] VITALS: BP 144/53
[2021-10-06 07:00] VITALS: BP 128/76
[2021-10-06] MEDS: IPRATRPIUM/ALBUTEROL 0.5/2.5MG 3 ML NEBU. NEB SCH ×4 (07:17→20:26)
[2021-10-06] MEDS: BUDESONIDE 0.5 MG/2 ML NEBU. NEB SCH ×2 (07:17→20:27)
--- NOTE | 2021-10-06 08:07 | PDOC ---
[employer] PROGRESS NOTE Date of Service DOS: DATE: 10/06/21 TIME: 08:01 Chief Complaint Chief Complaint Hypoxia Pneumonia Leukocytosis Altered mental status Dehydration Elevated BUN Hemorrhagic CVA 2017 s/p craniotomy with residual left-sided weakness Parkinson disease with dementia LLE DVT s/p IVC filter placement HTN HLD COPD Left leg and arm contractures Urinary incontinence Tobacco abuse History of Present Illness History of Present Illness 10/06/2021 Patient seen and examined Chart reviewed Discussed with RN Patient is awake and in good spirits. Says he is feeling good today. Doxycycline hanging. ECHO was rescheduled for today. Cardiology also started potassium replacement for mild hypokalemia. Vitals/I&O Vitals/I&O: Vital Signs Date Time Temp Pulse Resp B/P (MAP) Pulse Ox O2 Delivery O2 Flow Rate FiO2 10/06/21 07:19 92 Room Air 10/06/21 03:00 97.3 67 18 144/53 (83) 97.3 10/05/21 15:00 3.0 I & O 10/05/21 10/05/21 10/06/21 15:00 23:00 07:00 Intake Total 0 ml 200 ml Balance 0 ml 200 ml Physical Exam General: Alert, Cooperative, No acute distress Heart: Regular rate Lungs: Clear, Other Abdomen: Soft Extremities: No edema Skin: No significant lesion Assessment and Plan Assessmemt and Plan Problems Medical Problems: (1) Dementia Status: Acute (2) Multifocal pneumonia Status: Acute Hypoxia Pneumonia Leukocytosis Altered mental status Dehydration Elevated BUN Hemorrhagic CVA 2017 s/p craniotomy with residual left-sided weakness Parkinson disease with dementia LLE DVT s/p IVC filter placement HTN HLD COPD Left leg and arm contractures Urinary incontinence Tobacco abuse Plan: Continue antibiotics ECHO today per cardiology Potassium replacement per cardiology Appreciate cardiology input Trend labs DVT prophylaxis Home meds DNR [facility]. Comment Review of Relevant I have reviewed the following items jose alfredo (where applicable) has been applied. Medications: Current Medications Medications (Trade) Dose Ordered Sig/Kenna Route PRN Reason Start Time Stop Time Status Last Admin Dose Admin Ceftriaxone Sodium (Rocephin) 1 gm Q24H IVP 10/05/21 12:00 10/05/21 13:17 Amlodipine Besylate (Norvasc) 5 mg DAILY PO 10/05/21 09:00 10/05/21 09:05 Vitamin D (Vitamin D3) 2,000 unit DAILY PO 10/05/21 09:00 10/05/21 13:18 Clopidogrel Bisulfate (Plavix) 75 mg DAILY PO 10/05/21 09:00 10/05/21 09:06 Multivitamins (Thera M Plus) 1 tab DAILY PO 10/05/21 09:00 10/05/21 09:06 Sertraline HCl (Zoloft) 75 mg DAILY PO 10/05/21 09:00 10/05/21 09:06 Potassium Bicarbonate (Potassium Effervescent Tablet) 40 meq 1X ONCE PO 10/05/21 12:45 10/05/21 12:46 DC 10/05/21 13:18 Lactobacillus Rhamnosus (Culturelle) 1 cap BID PO 10/05/21 21:00 10/05/21 21:22 Nystatin (Nystop) 1 brit BID TP 10/05/21 21:00 10/05/21 21:00 Justifications for Admission Other Justification RUSSELL SUNSHINE III DO Oct 06, 2021 08:07
[2021-10-06] MEDS: CHOLECALCIFEROL (VITAMIN D3) 1,000 UNIT TABLET PO SCH ×2 (08:16→09:00)
[2021-10-06] MEDS: GABAPENTIN 100 MG CAPSULE. PO SCH ×4 (08:16→22:01)
[2021-10-06] MEDS: CARBIDOPA/LEVODOPA 25/100MG TABLET PO SCH ×4 (08:16→22:00)
[2021-10-06] MEDS: LACTOBACILLUS RHAMNOSUS GG 1 CAPSULE. PO SCH ×3 (08:16→22:00)
[2021-10-06] MEDS: BACLOFEN 10 MG TABLET. PO SCH ×5 (08:16→22:00)
[2021-10-06] MEDS: SERTRALINE 25 MG TABLET. PO SCH ×2 (08:16→09:00)
[2021-10-06] MEDS: DOXYCYCLINE HYCLATE 100 MG TABLET PO SCH ×3 (08:17→22:00)
[2021-10-06] MEDS: MULTIVITAMIN with MINERAL TABLET. PO SCH ×2 (08:17→09:00)
[2021-10-06] MEDS: APIXABAN 2.5 MG TABLET. PO SCH ×3 (08:17→21:59)
[2021-10-06] MEDS: CLOPIDOGREL BISULFATE 75 MG TABLET PO SCH ×2 (08:17→09:00)
[2021-10-06] MEDS: NYSTATIN TOPICAL POWDER 15GM BOTTLE. TP SCH ×2 (09:00→21:00)
[2021-10-06] MEDS ORDERED: PHENOL ORAL SPRAY 177ML BOTTLE. PO PRN (10:45)
[2021-10-06 11:00] VITALS: BP 136/79
[2021-10-06] MEDS: cefTRIAXone IV Push 1 GM VIAL. IVP SCH (14:22)
--- NOTE | 2021-10-06 14:57 | PDOC2 ---
Chief Complaint: Chief Complaint: Pressure ulcer left lateral malleolus Problems: (1) Hemiplegia and hemiparesis following cerebral infarction affecting left non- dominant side (2) Pressure ulcer of ankle Vital Signs: Vital Signs: Vital Signs Date Time Temp Pulse Resp B/P (MAP) Pulse Ox O2 Delivery O2 Flow Rate FiO2 10/05/21 07:00 99.0 76 18 109/70 (83) 90 Nasal Cannula 3.0 99.0 Vital Signs Date Time Temp Pulse Resp B/P (MAP) Pulse Ox O2 Delivery O2 Flow Rate FiO2 10/06/21 12:48 93 Room Air 10/06/21 11:00 98.2 74 20 136/79 (98) 98.2 10/05/21 15:00 3.0 Allergies: Allergies: Allergies Coded Allergies Type Severity Reaction Last Updated Verified No Known Drug Allergies 12/15/16 No Medications: Home Meds Active Scripts Doxycycline Hyclate (DOXYCYCLINE HYCLATE) 100 Mg Tablet, 1 TAB PO BID, #14 TAB Prov:CASSY RODAS [employer] 03/13/21 Reported Medications Apixaban (ELIQUIS) 2.5 Mg Tablet, 1 TAB PO BID for DVT for 30 Days, #60 TAB 11 Refills 10/04/21 Clopidogrel Bisulfate (CLOPIDOGREL) 75 Mg Tablet, 1 TAB PO DAILY for PAD for 30 Days, #30 TAB 11 Refills 10/04/21 Diclofenac Sodium (VOLTAREN) 100 Gm Gel..gram., 1 GM TP PRN Q4HRS PRN for PAIN, #100 GM 2 Refills 02/19/19 Divalproex Sodium (DEPAKOTE ER) 500 Mg Tab.er.24h, 3 TAB PO QHS for Mood disorder, #90 TAB 2 Refills 02/19/19 Rivaroxaban (XARELTO) 20 Mg Tablet, 20 MG PO DAILY for LLE DVT, TAB 02/19/19 Acetaminophen (TYLENOL) 325 Mg Tablet, 2 TAB PO Q6HRS for PAIN, #60 TAB 2 Refills 01/10/19 Gabapentin (GABAPENTIN ) 100 Mg Capsule, 300 MG PO TID for NERVE PAIN, CAP 01/10/19 Carboxymethylcellulos/Glycerin (REFRESH OPTIVE EYE DROPS) 15 Ml Drops, 1 DROP EACHEYE TID for DRY EYES, #30 ML 6 Refills 01/10/19 Nystatin (NYSTATIN) 15 Gm Cream..g., 1 ERMIAS TP TID for FOR REDNESSOF ABDIAS AREA, #30 GM 01/10/19 Carbidopa/Levodopa (SINEMET 25-100 MG TABLET) 1 Each Tablet, 1 TAB PO TID for PARKINSONS, TAB 01/10/19 Baclofen (BACLOFEN) 10 Mg Tablet, 20 MG PO QID for MUSCLE SPASMS, #30 TAB 0 Refills 01/10/19 Sennosides (SENNA) 8.6 Mg Tablet, 8.6 MG PO HS for CONSTIPATION, TAB 01/10/19 Atorvastatin Calcium (ATORVASTATIN CALCIUM) 20 Mg Tablet, 20 MG PO HS, #30 TAB 0 Refills 01/10/19 Donepezil Hcl (DONEPEZIL HCL) 5 Mg Tablet, 5 MG PO HS for MOOD STABILIZATION, TAB 01/10/19 Cholecalciferol (Vitamin D3) (VITAMIN D3) 1,000 Unit Tablet, 2 TAB PO DAILY for SUPPLEMENT, #30 TAB 5 Refills 01/10/19 Sertraline Hcl (ZOLOFT) 100 Mg Tablet, 75 MG PO DAILY for DEPRESSION, #30 TAB 5 Refills 01/10/19 Multivitamin (MULTIVITAMINS) 1 Each Tablet, 1 TAB PO DAILY for WOUND SUPPLEMENT, #90 TAB 3 Refills 01/10/19 Amlodipine Besylate (AMLODIPINE BESYLATE) 5 Mg Tablet, 5 MG PO DAILY, TAB 12/16/16 Pain: Scale (pain): 8 Date of Onset 3 yr hx of left hemiplegia s/p cerebral hemorrhage. Pt resides in LTCF and lies suppine in bed with external rotation of left lower leg. He had hx of ankle fracture in the past with ORIF including indwelling orthopedic hardware. Hardware was removed several years ago due to MRSA of the ankle. He was admitted to [facility] with incidental finding of this pressure ulcer POA. Surgical Date >3 years ago PMH Hemorrhagic CVA, Parkinson's disease with dementia PSH with supportive Physical Exam - Wound #1 Wound Exam Location of Modifier: Left Wound Location: Lateral Body Site: Ankle Associated Signs/Symptoms: Pain Drainage Amount: Minimal Drainage Description: Serosanguineous Odor: None/Absent Surrounding Tissue Appearance: pink Wound Description: skin, SQ Stage: 3 A/P Stage 3 PU left malleolus due to mobility deficits in 66 yo patient with left hemiparesis. Hx of MRSA at the same site with orthopedic hardware removal. Check plain films. Plain films are less than ideal to prove absence of osteomyelitis but helpful if + for bone involvement. Problems: (1) Pressure ulcer of ankle (2) Hemiplegia and hemiparesis following cerebral infarction affecting left non- dominant side Problem Qualifiers (1) Pressure ulcer of ankle: Pressure injury stage: stage 3 Laterality: left Qualified Codes: L89.523 - Pressure ulcer of left ankle, stage 3 NAKUL ESPAÑA MD Oct 06, 2021 14:57
[2021-10-06 15:00] VITALS: BP 109/66
--- NOTE | 2021-10-06 15:52 | NUR ---
Wound Care Wound Type/Assessment: Consult to eval and treat wound to L lateral ankle. Pt at bedside, assessment done by Dr Vela today. Treatment Recommendations/Plan: L ankle: Cleanse and pat dry. Apply therahoney gel, xeroform, and foam dressing. Change every 2-3 days. Groin folds: Clean and pat dry. Apply nystatin powder BID Education provided: present at bedside for teaching regarding offloading, assistive devices, and pressure relief. Offloading surface/device: Purple wedge for positioning, heel medic boot to L foot with wedge to prevent external rotation Recommended Referrals/Tests: xray of left ankle Discharge Recommendations for dressings: As above
--- NOTE | 2021-10-06 17:26 | RAD ---
XR EXAM OF ANKLE_LEFT 3V History: Nonhealing wound with history of MRSA. Evaluate possible osteomyelitis. Comparison: None. Technique: 3 views of the left ankle. Findings: Diffusely decreased osseous mineralization. No fracture or dislocation is identified. Healed fracture deformity of the distal fibular diaphysis. 2 screws are present in the medial malleolus without evid ence of residual fracture lucency. No aggressive osseous erosive process is identified. The ankle mor tise and talar dome are intact. No subcutaneous air or focal soft tissue swelling. Impression: 1. Diffusely decreased osseous mineralization. No acute osseous abnormality. No aggressive osseous e rosive process identified. Electronically signed by: Carson Vasquez MD (10/06/2021 5:24 PM) [id number]
--- NOTE | 2021-10-06 17:49 | CARD ---
MR#: [id number] Date of Study: 10/06/2021 Ordering Physician: VALENTÍN CHARLES, Referring Physician: VALENTÍN CHARLES, Tech: Sadie Zhu, [facility] APPROVED REPORT EXAM: Two-dimensional and M-mode echocardiogram with Doppler and color Doppler. Other Information Quality : FairHR: 72bpm Technically limited study due to Restless patient INDICATION COPD Congestive Heart Failure RISK FACTORS Hypertension Hyperlipidemia 2D DIMENSIONS IVSd1.2 (0.7-1.1cm)Aortic Root(2D)3.5 (2.0-3.7cm) LVDd4.4 (3.9-5.9cm)LVOT Diameter2.1 (1.8-2.4cm) PWd1.3 (0.7-1.1cm)LVDs3.2 (2.5-4.0cm) FS (%) 27.5 %SV47.0 ml Aortic Valve AoV Peak Mumtaz.100.8cm/sAoV VTI20.2cm AO Peak GR.4.1mmHgLVOT VTI 21.74cm AO Mean GR.2mmHg Mitral Valve MV E Vfahprkf66.4cm/sMV E Peak Gr.2mmHg MV DECEL [id number] A Ysdlbyqf52.6cm/s MV E Mean Gr.1mmHgE/A Ratio0.8 TDI Lateral E' P. V6.76cm/sMedial E' P. V6.11cm/s E/Lateral E'8.3E/Medial E'9.2 Tricuspid Valve TR P. [id number] [id number] TR Peak Gr.[id number] LEFT VENTRICLE The left ventricle is normal size. There is mild concentric left ventricular hypertrophy. The left ve ntricular systolic function is normal and the ejection fraction is within normal range. The Ejection Fraction is 50-55%. There is normal LV segmental wall motion. Transmitral Doppler flow pattern is Gra de I-abnormal relaxation pattern. RIGHT VENTRICLE The right ventricle is normal size. There is normal right ventricular wall thickness. The right ventr icular systolic function is normal. ATRIA The left atrium size is normal. The right atrium size is normal. The interatrial septum is intact wit h no evidence for an atrial septal defect or patent foramen ovale as noted on 2-D or Doppler imaging. AORTIC VALVE The aortic valve is normal in structure and function. Doppler and Color Flow revealed no significant aortic regurgitation. There is no significant aortic valvular stenosis. Calculated aortic valve area is 3.5 cm2 with maximum pressure gradient of 4 mmHg and mean pressure gradient of 3 mmHg. MITRAL VALVE The mitral valve is normal in structure and function. There is no evidence of mitral valve prolapse. There is no mitral valve stenosis. Doppler and Color Flow revealed no mitral valve regurgitation note d. TRICUSPID VALVE The tricuspid valve is not well visualized. Doppler and Color Flow revealed trace tricuspid regurgita tion with an estimated PAP of 21 mmHg. There is no tricuspid valve stenosis. PULMONIC VALVE The pulmonic valve is not well visualized. Doppler and Color Flow revealed trace pulmonic valvular re gurgitation. GREAT VESSELS The aortic root is normal in size. The IVC was not visualized. PERICARDIAL EFFUSION There is no evidence of significant pericardial effusion. Critical Notification Critical Value: No <Conclusion> The left ventricle is normal size. The left ventricular systolic function is normal and the ejection fraction is within normal range. The Ejection Fraction is 50-55%. There is mild concentric left ventricular hypertrophy. Doppler and Color Flow revealed no significant aortic regurgitation. There is no significant aortic valvular stenosis. Doppler and Color Flow revealed no mitral valve regurgitation noted. Doppler and Color Flow revealed trace tricuspid regurgitation with an estimated PAP of 21 mmHg. Signed by : Alfred Nichols MD Electronically Approved : 10/06/2021 17:49:15
--- NOTE | 2021-10-06 18:26 | PDOC ---
PROGRESS NOTES Date of Service DATE: 10/06/21 TIME: 18:23 Subjective Subjective Patient seen and examined Objective Objective Vital Signs Date Time Temp Pulse Resp B/P (MAP) Pulse Ox O2 Delivery O2 Flow Rate FiO2 10/06/21 16:25 93 Room Air 10/06/21 15:00 98.4 70 20 109/66 (80) 98.4 10/06/21 08:00 3.0 Intake and Output 10/06/21 07:00 Intake Total 200 ml Balance 200 ml Intake Oral 200 ml # Voids 3 # Bowel Movements 1 Physical Exam Abdomen: Normal bowel sounds Heart: Regular rate General: mild distress Lungs: Other (Mildly decreased breath sounds) Assessment Assessment Problems Medical Problems: (1) Dementia Status: Acute (2) Multifocal pneumonia Status: Acute Acute respiratory failure, probable PNA, the patient looks and feels better today status post diuresis. Chest pain, details unknown. AMI ruled out. Echo with intact LV systolic function. H/o hemorrhagic CVA s/p craniotomy; residual left-sided weakness Parkinson disease, dementia Hypertension; controlled Hyperlipidemia; statin Leukocytosis Elevated D-dimer; CTA negative for PE H/o DVT on Eliquis Hypokalemia. BNP in the morning. Comment Review of Relevant I have reviewed the following items jose alfredo (where applicable) has been applied. Labs Laboratory Tests Test 10/05/21 06:05 White Blood Count 7.7 x10^3/uL (4.0-11.0) Red Blood Count 3.92 x10^6/uL (4.30-5.70) Hemoglobin 12.4 g/dL (13.0-17.5) Hematocrit 37.0 % (39.0-53.0) Mean Corpuscular Volume 94 fL (79-100) Mean Corpuscular Hemoglobin 32 pg (25-35) Mean Corpuscular Hemoglobin Concent 34 g/dL (31-37) Red Cell Distribution Width 13.5 % (11.5-14.5) Platelet Count 191 x10^3/uL (140-400) Neutrophils (%) (Auto) 70 % (31-73) Lymphocytes (%) (Auto) 17 % (24-48) Monocytes (%) (Auto) 12 % (0-9) Eosinophils (%) (Auto) 1 % (0-3) Basophils (%) (Auto) 0 % (0-3) Neutrophils # (Auto) 5.4 x10^3/uL (1.8-7.7) Lymphocytes # (Auto) 1.3 x10^3/uL (1.0-4.8) Monocytes # (Auto) 1.0 x10^3/uL (0.0-1.1) Eosinophils # (Auto) 0.0 x10^3/uL (0.0-0.7) Basophils # (Auto) 0.0 x10^3/uL (0.0-0.2) Sodium Level 141 mmol/L (136-145) Potassium Level 3.1 mmol/L (3.5-5.1) Chloride Level 102 mmol/L (98-107) Carbon Dioxide Level 29 mmol/L (21-32) Anion Gap 10 (6-14) Blood Urea Nitrogen 27 mg/dL (8-26) Creatinine 0.7 mg/dL (0.7-1.3) Estimated GFR (Cockcroft-Gault) 112.5 BUN/Creatinine Ratio 39 (6-20) Glucose Level 114 mg/dL (70-99) Calcium Level 8.8 mg/dL (8.5-10.1) Magnesium Level 2.0 mg/dL (1.8-2.4) Total Bilirubin 0.9 mg/dL (0.2-1.0) Aspartate Amino Transf (AST/SGOT) 11 U/L (15-37) Alanine Aminotransferase (ALT/SGPT) 16 U/L (16-63) Alkaline Phosphatase 42 U/L (46-116) Troponin I High Sensitivity 7 ng/L (4-75) Total Protein 7.0 g/dL (6.4-8.2) Albumin 2.7 g/dL (3.4-5.0) Albumin/Globulin Ratio 0.6 (1.0-1.7) Triglycerides Level 116 mg/dL (0-150) Cholesterol Level 166 mg/dL (0-200) LDL Cholesterol, Calculated 114 mg/dL (0-100) VLDL Cholesterol, Calculated 23 mg/dL (0-40) Non-HDL Cholesterol Calculated 137 mg/dL (0-129) HDL Cholesterol 29 mg/dL (40-60) Cholesterol/HDL Ratio 5.7 Medications Current Medications Albuterol/ Ipratropium (Duoneb) 3 ml 1X ONCE NEB Last administered on 10/04/21at 09:03; Start 10/04/21 at 08:15; Stop 10/04/21 at 08:18; Status DC Iohexol (Omnipaque 350 Mg/ml) 100 ml 1X ONCE IV Last administered on 10/04/21at 10:14; Start 10/04/21 at 10:00; Stop 10/04/21 at 10:01; Status DC Info (CONTRAST GIVEN -- Rx MONITORING) 1 each PRN DAILY PRN MC SEE COMMENTS; Start 10/04/21 at 10:00; Stop 10/06/21 at 09:59; Status DC Ceftriaxone Sodium (Rocephin) 1 gm 1X ONCE IVP Last administered on 10/04/21at 12:18; Start 10/04/21 at 12:15; Stop 10/04/21 at 12:16; Status DC Doxycycline Hyclate (Vibra-Tab) 100 mg 1X ONCE PO Last administered on 10/04/21at 12:17; Start 10/04/21 at 12:15; Stop 10/04/21 at 12:16; Status DC Olanzapine (ZyPREXA ZYDIS) 5 mg PRN BID PRN PO ANXIETY / AGITATION Last administered on 10/05/21at 21:22; Start 10/04/21 at 17:15 Ondansetron HCl (Zofran) 4 mg PRN Q4HRS PRN IVP NAUSEA/VOMITING; Start 10/04/21 at 17:15 Guaifenesin (Robitussin Dm) 10 ml PRN Q6HRS PRN PO COUGH; Start 10/04/21 at 17:15 Budesonide (Pulmicort) 0.5 mg RTBID NEB Last administered on 10/06/21at 07:17; Start 10/04/21 at 20:00 Albuterol/ Ipratropium (Duoneb) 3 ml RTQID NEB Last administered on 10/06/21at 16:24; Start 10/04/21 at 20:00 Albuterol Sulfate (Ventolin Neb Soln) 2.5 mg PRN Q4HRS PRN NEB SHORTNESS OF BREATH; Start 10/04/21 at 17:15 Acetaminophen (Tylenol) 650 mg PRN Q6HRS PRN PO MILD PAIN / TEMP > 100.3'F Last administered on 10/05/21at 13:20; Start 10/04/21 at 17:15 Furosemide (Lasix) 40 mg 1X ONCE IVP Last administered on 10/04/21at 18:45; Start 10/04/21 at 17:15; Stop 10/04/21 at 17:27; Status DC Haloperidol Lactate (Haldol Inj) 2.5 mg PRN Q6HRS PRN IVP AGITATION; Start 10/04/21 at 18:15 Ceftriaxone Sodium (Rocephin) 1 gm Q24H IVP Last administered on 10/06/21at 14:22; Start 10/05/21 at 12:00 Doxycycline Hyclate (Vibra-Tab) 100 mg BID PO Last administered on 10/05/21at 21:20; Start 10/04/21 at 19:00 Amlodipine Besylate (Norvasc) 5 mg DAILY PO Last administered on 10/05/21at 09:05; Start 10/05/21 at 09:00 Apixaban (Eliquis) 2.5 mg BID PO Last administered on 10/05/21at 21:22; Start 10/04/21 at 21:00 Atorvastatin Calcium (Lipitor) 20 mg HS PO Last administered on 10/05/21 21:20; Start 10/04/21 at 21:00 Baclofen (Lioresal) 20 mg QID PO Last administered on 10/06/21at 14:23; Start 10/04/21 at 21:00 Carbidopa/Levodopa (Sinemet 25/100) 1 tab TID PO Last administered on 10/06/21at 14:23; Start 10/04/21 at 21:00 Vitamin D (Vitamin D3) 2,000 unit DAILY PO Last administered on 10/05/21at 13:18; Start 10/05/21 at 09:00 Clopidogrel Bisulfate (Plavix) 75 mg DAILY PO Last administered on 10/05/21at 0 9:06; Start 10/05/21 at 09:00 Diclofenac Sodium (Voltaren) 1 anisa PRN Q4HRS PRN TP PAIN; Start 10/04/21 at 19:15 Divalproex Sodium (Depakote) 1,250 mg QHS PO Last administered on 10/05/21at 21:22; Start 10/04/21 at 21:00 Gabapentin (Neurontin) 300 mg TID PO Last administered on 10/06/21at 14:23; Start 10/04/21 at 21:00 Sennosides (Senna) 8.6 mg HS PO Last administered on 10/05/21at 21:21; Start 10/04/21 at 21:00 Glycerin/ Hypromellose/ Polyethylene (Artificial Tears) 1 drop PRN TID PRN OU DRY EYE; Start 10/04/21 at 19:30 Multivitamins (Thera M Plus) 1 tab DAILY PO Last administered on 10/05/21at 09:06; Start 10/05/21 at 09:00 Sertraline HCl (Zoloft) 75 mg DAILY PO Last administered on 10/05/21at 09:06; Start 10/05/21 at 09:00 Potassium Bicarbonate (Potassium Effervescent Tablet) 40 meq 1X ONCE PO Last administered on 10/05/21at 13:18; Start 10/05/21 at 12:45; Stop 10/05/21 at 12:46; Status DC Lactobacillus Rhamnosus (Culturelle) 1 cap BID PO Last administered on 10/05/21at 21:22; Start 10/05/21 at 21:00 Nystatin (Nystop) 1 anisa BID TP Last administered on 10/06/21at 09:00; Start 10/05/21 at 21:00 Phenol (Chloraseptic) 1 spray PRN Q2HR PRN PO SORE THROAT; Start 10/06/21 at 10:45 Active Scripts Active Doxycycline Hyclate 100 Mg Tablet 1 Tab PO BID Reported Eliquis (Apixaban) 2.5 Mg Tablet 1 Tab PO BID 30 Days Clopidogrel (Clopidogrel Bisulfate) 75 Mg Tablet 1 Tab PO DAILY 30 Days Voltaren (Diclofenac Sodium) 100 Gm Gel..gram. 1 Gm TP PRN Q4HRS PRN Depakote Er (Divalproex Sodium) 500 Mg Tab.er.24h 3 Tab PO QHS Xarelto (Rivaroxaban) 20 Mg Tablet 20 Mg PO DAILY Tylenol (Acetaminophen) 325 Mg Tablet 2 Tab PO Q6HRS Gabapentin (Gabapentin) 100 Mg Capsule 300 Mg PO TID Refresh Optive Eye Drops (Carboxymethylcellulos/Glycerin) 15 Ml Drops 1 Drop EACHEYE TID Nystatin 15 Gm Cream..g. 1 Anisa TP TID Sinemet 25-100 Mg Tablet (Carbidopa/Levodopa) 1 Each Tablet 1 Tab PO TID Baclofen 10 Mg Tablet 20 Mg PO QID Senna (Sennosides) 8.6 Mg Tablet 8.6 Mg PO HS Atorvastatin Calcium 20 Mg Tablet 20 Mg PO HS Donepezil Hcl 5 Mg Tablet 5 Mg PO HS Vitamin D3 (Cholecalciferol (Vitamin D3)) 1,000 Unit Tablet 2 Tab PO DAILY Zoloft (Sertraline Hcl) 100 Mg Tablet 75 Mg PO DAILY Multivitamins (Multivitamin) 1 Each Tablet 1 Tab PO DAILY Amlodipine Besylate 5 Mg Tablet 5 Mg PO DAILY Vitals/I & O Vital Sign - Last 24 Hours 10/05/21 10/05/21 10/05/21 10/05/21 19:00 20:15 20:25 23:00 Temp 97.6 97.7 97.6 97.7 Pulse 70 66 Resp 18 18 B/P (MAP) 118/77 (91) 108/66 (80) Pulse Ox 90 92 90 O2 Delivery Room Air Room Air Room Air Room Air 10/06/21 10/06/21 10/06/21 10/06/21 03:00 07:00 07:19 08:00 Temp 97.3 97.3 97.3 97.3 Pulse 67 65 Resp 18 20 B/P (MAP) 144/53 (83) 128/76 (93) Pulse Ox 90 91 92 O2 Delivery Room Air Room Air Room Air O2 Flow Rate 3.0 10/06/21 10/06/21 10/06/21 10/06/21 11:00 12:48 15:00 16:25 Temp 98.2 98.4 98.2 98.4 Pulse 74 70 Resp 20 20 B/P (MAP) 136/79 (98) 109/66 (80) Pulse Ox 90 93 91 93 O2 Delivery Room Air Room Air Intake and Output 10/05/21 10/05/21 10/06/21 15:00 23:00 07:00 Intake Total 0 ml 200 ml Balance 0 ml 200 ml Justifications for Admission Other Justification SILVANA HAM MD Oct 06, 2021 18:26
[2021-10-06 19:00] VITALS: BP 121/75
[2021-10-06] MEDS: ATORVASTATIN CALCIUM 20 MG TABLET PO SCH (22:00)
[2021-10-06] MEDS: SENNOSIDES 8.6 MG TABLET PO SCH (22:00)
[2021-10-06] MEDS: DIVALPROEX DELAYED RELEASE 250 MG TABLET.DR. PO SCH (22:01)
[2021-10-06 23:00] VITALS: BP 127/67
[2021-10-07 06:43] LABS: CALCIUM 8.7 mg/dL (8.5-10.1); CREATININE 0.6 mg/dL (0.7-1.3); GFR 134.4; POTASSIUM 3.1 mmol/L (3.5-5.1)
[2021-10-07 07:00] VITALS: BP 102/62
[2021-10-07] MEDS: IPRATRPIUM/ALBUTEROL 0.5/2.5MG 3 ML NEBU. NEB SCH ×2 (07:26→11:49)
[2021-10-07] MEDS: BUDESONIDE 0.5 MG/2 ML NEBU. NEB SCH (07:26)
[2021-10-07] MEDS: NYSTATIN TOPICAL POWDER 15GM BOTTLE. TP SCH (09:00)
[2021-10-07] MEDS: CHOLECALCIFEROL (VITAMIN D3) 1,000 UNIT TABLET PO SCH (09:06)
[2021-10-07] MEDS: GABAPENTIN 100 MG CAPSULE. PO SCH ×2 (09:06→14:47)
[2021-10-07] MEDS: CARBIDOPA/LEVODOPA 25/100MG TABLET PO SCH ×2 (09:06→14:47)
[2021-10-07] MEDS: LACTOBACILLUS RHAMNOSUS GG 1 CAPSULE. PO SCH (09:06)
[2021-10-07] MEDS: CLOPIDOGREL BISULFATE 75 MG TABLET PO SCH (09:06)
[2021-10-07] MEDS: SERTRALINE 25 MG TABLET. PO SCH (09:07)
[2021-10-07] MEDS: MULTIVITAMIN with MINERAL TABLET. PO SCH (09:07)
[2021-10-07] MEDS: DOXYCYCLINE HYCLATE 100 MG TABLET PO SCH (09:07)
[2021-10-07] MEDS: BACLOFEN 10 MG TABLET. PO SCH ×2 (09:08→14:46)
[2021-10-07] MEDS: APIXABAN 2.5 MG TABLET. PO SCH (09:08)
[2021-10-07 11:00] VITALS: BP 116/75
--- NOTE | 2021-10-07 11:12 | PDOC ---
JORGE ALBERTO [employer]LEMAN [employer] [employer] [facility] 10/07/21 1112: CARDIO Progress Notes Date and Time Date of Service 10/07/2021 Time of Evaluation 1050 Subjective Subjective: No Chest Pain, No shortness of breath, No Palpitations Vitals Vitals Vital Signs Date Time Temp Pulse Resp B/P (MAP) Pulse Ox O2 Delivery O2 Flow Rate FiO2 10/07/21 09:00 70 102/62 10/07/21 07:27 92 Room Air 10/07/21 07:00 98.6 18 98.6 10/06/21 19:00 3.0 Weight Weight [ ] Input and Output Intake and Output Intake and Output 10/07/21 07:00 Intake Total 0 ml Balance 0 ml Intake Oral 0 ml # Voids 2 Laboratory Labs Laboratory Tests Test 10/07/21 04:05 Sodium Level 142 mmol/L (136-145) Potassium Level 3.1 mmol/L (3.5-5.1) Chloride Level 102 mmol/L (98-107) Carbon Dioxide Level 27 mmol/L (21-32) Anion Gap 13 (6-14) Blood Urea Nitrogen 29 mg/dL (8-26) Creatinine 0.6 mg/dL (0.7-1.3) Estimated GFR (Cockcroft-Gault) 134.4 Glucose Level 112 mg/dL (70-99) Calcium Level 8.7 mg/dL (8.5-10.1) Magnesium Level 2.0 mg/dL (1.8-2.4) Physical Exam HEENT: Neck Supple W Full Motion Chest: Symmetric LUNGS: Other (diminished) Heart: S1S2, RRR (no tele), no murmurs Abdomen: Soft N/T Extremities: No Calf Tenderness Neurology: alert, oriented, follow commands Assessment Assessment 1. Acute respiratory failure, probable PNA, mild acute probable diastolic CHF Compensated 2. Chest pain, details unknown. AMI ruled out. EF and WM nml. 3. H/o hemorrhagic CVA s/p craniotomy; residual left-sided weakness 4. Parkinson disease, dementia 5. Hypertension; controlled 6. Hyperlipidemia; statin 7. Leukocytosis 8. Elevated D-dimer; CTA negative for PE 9. H/o DVT on Eliquis 10. Hypokalemia Recommendations Replace K. Could not ascertain indication for plavix. No clear cardiac ind ication presently will defer to PCP Continue secondary prevention measures Ongoing lung optimization, treatment of PNA Supportive care Justicifation of Admission Dx: Justifications for Admission: Justification of Admission Dx: Yes SILVANA HAM MD 10/08/21 0949: CARDIO Progress Notes Assessment Assessment Patient seen and examined on 10/07/2021. I agree with our nurse practitioners assessment and plan. Acute respiratory failure, probable PNA, mild acute probable diastolic CHF Compensated. Continues to improve. Chest pain, details unknown. AMI ruled out. EF and WM nml. H/o hemorrhagic CVA s/p craniotomy; residual left-sided weakness Parkinson disease, dementia Hypertension; controlled Hyperlipidemia; statin Leukocytosis Elevated D-dimer; CTA negative for PE H/o DVT on Eliquis Hypokalemia. K being replaced. JORGE ALBERTO COLEMAN [employer] [employer] [facility] Oct 07, 2021 11:12 SILVANA HAM MD Oct 08, 2021 09:49
[2021-10-07] MEDS ORDERED: POTASSIUM CHLORIDE 20 MEQ TABLET.ER. PO ONE (11:15)
--- NOTE | 2021-10-07 11:31 | SNU/HH DC ---
DISCHARGE ORDERS DISCHARGE INFORMATION: FINAL DIAGNOSIS Problems Medical Problems: (1) Dementia Status: Acute (2) Multifocal pneumonia Status: Acute CONDITION ON DISCHARGE: Stable CODE STATUS: Code Status: DNR/DNI CARE HOME: SNF STAY <30 DAYS: No HOSPICE: HOSPICE: No HOSPICE EVAL & TREAT: No LTAC: ADMIT TO LTAC: No POST DISCHARGE ORDERS: ACTIVITY ORDERS: Activity as tolerated WEIGHT BEARING STATUS: No restrictions DIET AFTER DISCHARGE: Cardiac TREATMENT/EQUIPMENT ORDERS: Physical Therapy For: Evalulation/Treatment DISCHARGE MEDICATIONS: Home Meds Active Scripts Doxycycline Hyclate (DOXYCYCLINE HYCLATE) 100 Mg Tablet, 1 TAB PO BID, #14 TAB Prov:CASSY RODAS [employer] 03/13/21 Reported Medications Apixaban (ELIQUIS) 2.5 Mg Tablet, 1 TAB PO BID for DVT for 30 Days, #60 TAB 11 Refills 10/04/21 Diclofenac Sodium (VOLTAREN) 100 Gm Gel..gram., 1 GM TP PRN Q4HRS PRN for PAIN, #100 GM 2 Refills 02/19/19 Divalproex Sodium (DEPAKOTE ER) 500 Mg Tab.er.24h, 3 TAB PO QHS for Mood diso rder, #90 TAB 2 Refills 02/19/19 Acetaminophen (TYLENOL) 325 Mg Tablet, 2 TAB PO Q6HRS for PAIN, #60 TAB 2 Refills 01/10/19 Gabapentin (GABAPENTIN ) 100 Mg Capsule, 300 MG PO TID for NERVE PAIN, CAP 01/10/19 Carboxymethylcellulos/Glycerin (REFRESH OPTIVE EYE DROPS) 15 Ml Drops, 1 DROP EACHEYE TID for DRY EYES, #30 ML 6 Refills 01/10/19 Nystatin (NYSTATIN) 15 Gm Cream..g., 1 ERMIAS TP TID for FOR REDNESSOF ABDIAS AREA, #30 GM 01/10/19 Carbidopa/Levodopa (SINEMET 25-100 MG TABLET) 1 Each Tablet, 1 TAB PO TID for PARKINSONS, TAB 01/10/19 Baclofen (BACLOFEN) 10 Mg Tablet, 20 MG PO QID for MUSCLE SPASMS, #30 TAB 0 Refills 01/10/19 Sennosides (SENNA) 8.6 Mg Tablet, 8.6 MG PO HS for CONSTIPATION, TAB 01/10/19 Atorvastatin Calcium (ATORVASTATIN CALCIUM) 20 Mg Tablet, 20 MG PO HS, #30 TAB 0 Refills 01/10/19 Donepezil Hcl (DONEPEZIL HCL) 5 Mg Tablet, 5 MG PO HS for MOOD STABILIZATION, TAB 01/10/19 Cholecalciferol (Vitamin D3) (VITAMIN D3) 1,000 Unit Tablet, 2 TAB PO DAILY for SUPPLEMENT, #30 TAB 5 Refills 01/10/19 Sertraline Hcl (ZOLOFT) 100 Mg Tablet, 75 MG PO DAILY for DEPRESSION, #30 TAB 5 Refills 01/10/19 Multivitamin (MULTIVITAMINS) 1 Each Tablet, 1 TAB PO DAILY for WOUND SUPPLEMENT, #90 TAB 3 Refills 01/10/19 Amlodipine Besylate (AMLODIPINE BESYLATE) 5 Mg Tablet, 5 MG PO DAILY, TAB 12/16/16 Discontinued Reported Medications Clopidogrel Bisulfate (CLOPIDOGREL) 75 Mg Tablet, 1 TAB PO DAILY for PAD for 30 Days, #30 TAB 11 Refills 10/04/21 Rivaroxaban (XARELTO) 20 Mg Tablet, 20 MG PO DAILY for LLE DVT, TAB 02/19/19 RUSSELL SUNSHINE III DO Oct 07, 2021 11:31
--- NOTE | 2021-10-07 11:44 | PDOC ---
[facility] PROGRESS NOTE Date of Service DOS: DATE: 10/07/21 TIME: 11:39 Chief Complaint Chief Complaint Hypoxia Pneumonia Leukocytosis Altered mental status Dehydration Elevated BUN Hemorrhagic CVA 2016 s/p craniotomy with residual left-sided weakness Parkinson disease with dementia LLE DVT s/p IVC filter placement HTN HLD COPD Left leg and arm contractures Urinary incontinence Tobacco abuse History of Present Illness History of Present Illness 10/07/2021 Patient seen and examined Chart reviewed Discussed with RN Discussed with cardiology. Concern patient being on Plavix and Eliquis. Pt on Eliquis for DVT. There is no indication for Plavix. Patient is much better today. He is back to his baseline. agrees that he is ready for discharge back to [facility]. Vitals/I&O Vitals/I&O: Vital Signs Date Time Temp Pulse Resp B/P (MAP) Pulse Ox O2 Delivery O2 Flow Rate FiO2 10/07/21 09:00 70 102/62 10/07/21 07:27 92 Room Air 10/07/21 07:00 98.6 18 98.6 10/06/21 19:00 3.0 I & O 10/06/21 10/06/21 10/07/21 15:00 23:00 07:00 Intake Total 0 ml Balance 0 ml Physical Exam General: mild distress Heart: Regular rate Lungs: Clear, Other Abdomen: Normal bowel sounds Extremities: No edema Skin: No significant lesion Labs Labs: Laboratory Tests Test 10/07/21 04:05 Sodium Level 142 mmol/L (136-145) Potassium Level 3.1 mmol/L (3.5-5.1) Chloride Level 102 mmol/L (98-107) Carbon Dioxide Level 27 mmol/L (21-32) Anion Gap 13 (6-14) Blood Urea Nitrogen 29 mg/dL (8-26) Creatinine 0.6 mg/dL (0.7-1.3) Estimated GFR (Cockcroft-Gault) 134.4 Glucose Level 112 mg/dL (70-99) Calcium Level 8.7 mg/dL (8.5-10.1) Magnesium Level 2.0 mg/dL (1.8-2.4) Assessment and Plan Assessmemt and Plan Problems Medical Problems: (1) Dementia Status: Acute (2) Multifocal pneumonia Status: Acute Hypoxia Pneumonia Leukocytosis Altered mental status Dehydration Elevated BUN Hemorrhagic CVA 2017 s/p craniotomy with residual left-sided weakness Parkinson disease with dementia LLE DVT s/p IVC filter placement HTN HLD COPD Left leg and arm contractures Urinary incontinence Tobacco abuse Discharge to [facility], until then continue the following: IV abx Trend labs Home meds DVT prophylaxis DNR Appreciate subspecialist input Comment Review of Relevant I have reviewed the following items jose alfredo (where applicable) has been applied. Justifications for Admission Other Justification RUSSELL SUNSHINE III DO Oct 07, 2021 11:44
--- NOTE | 2021-10-07 13:02 | DS ---
DATE OF DISCHARGE: 10/07/2021 ADMITTING DIAGNOSIS: Pneumonia. DISCHARGE DIAGNOSES: Resolving pneumonia, dementia, history of stroke, hypertension, chronic anticoagulation, muscle spasms, history of seizures, neuropathy, depression, anxiety, and constipation. HOSPITAL COURSE: The patient is a pleasant middle-aged male with multiple comorbidities, presented with mental status change and hypoxia, was noted to have pneumonia. We admitted the patient, gave him IV antibiotics, breathing treatments, oxygen. We continued his home medications. We did consult Cardiology. Today, the patient is doing much better. He is at his baseline. He is up, eating. His is present. She is okay with him going back to [facility]. We plan to discharge him back to his [facility]. DISPOSITION: senior living. ACTIVITY: As tolerated. DIET: Low sodium. DISCHARGE MEDICATIONS: Please see the MRAD. Add Tylenol 650 q.6 hours p.r.n., amlodipine 5 a day, Eliquis 2.5 b.i.d., atorvastatin 20 a day, baclofen 20 q.i.d., Sinemet 25/100 one t.i.d., Refresh eyedrops, vitamin D, Voltaren gel, Depakote 1500 at bedtime, Aricept 5 a day, doxycycline 100 p.o. b.i.d. for 1 more week, gabapentin 300 t.i.d., multiple vitamins, nystatin powder, senna, Zoloft 75 a day and I stopped his home Plavix. TOTAL TIME: 32 minutes. RAQUEL/DAVID DR: Mari TID: [id number]
[2021-10-07] MEDS: cefTRIAXone IV Push 1 GM VIAL. IVP SCH (14:46)
[2021-10-07 15:00] VITALS: BP 133/79
--- NOTE | 2021-10-07 17:33 | NUR ---
Discharge Note: EDDIE IGLESIAS [facility] Discharge instructions and discharge home medications reviewed with Emir at [facility] and a copy given. All questions have been answered and understanding verbalized. The following instructions and handouts were given: transfer of care Discontinued lines and drains: 20 guage right AC, tip intact. patient tolerated well. Patient discharged to [facility] via [employer] transport.
== END 2021-10-07 16:00 | DRG 871 ==
LOC: ER 07:58 → 5 NORTH 12:03
PROVIDERS: ADMIT Internal Medicine; ATTEND Internal Medicine
DX: A41.9 Sepsis, unspecified organism (principal); L89.523 Pressure ulcer of left ankle, stage 3; J96.01 Acute respiratory failure with hypoxia; J18.9 Pneumonia, unspecified organism; I50.30 Unspecified diastolic (congestive) heart failure; I69.354 Hemiplegia and hemiparesis following cerebral infarction affecting left non-dominant side; J44.0 Chronic obstructive pulmonary disease with (acute) lower respiratory infection; E78.00 Pure hypercholesterolemia, unspecified; E78.5 Hyperlipidemia, unspecified; E86.0 Dehydration; E87.6 Hypokalemia; F02.80 Dementia in other diseases classified elsewhere, unspecified severity, without behavioral disturbance, psychotic disturbance, mood disturbance, and anxiety; F32.A Depression, unspecified; F41.9 Anxiety disorder, unspecified; G20 Parkinson's disease; G89.29 Other chronic pain; G93.89 Other specified disorders of brain; I11.0 Hypertensive heart disease with heart failure; I25.10 Atherosclerotic heart disease of native coronary artery without angina pectoris; M40.204 Unspecified kyphosis, thoracic region; R32 Unspecified urinary incontinence; Z20.822 Contact with and (suspected) exposure to COVID-19; Z66 Do not resuscitate; Z72.0 Tobacco use; Z79.01 Long term (current) use of anticoagulants; Z86.14 Personal history of Methicillin resistant Staphylococcus aureus infection; Z86.718 Personal history of other venous thrombosis and embolism; Z95.828 Presence of other vascular implants and grafts; Z96.651 Presence of right artificial knee joint; F32.9 Major depressive disorder, single episode, unspecified; K21.9 Gastro-esophageal reflux disease without esophagitis
CPT/HCPCS: 36415; 71045; 71275; 73610; 80048; 80053; 80061; 83735; 83880; 84145; 84484; 85025; 85379; 87426; 87804; 93306; 94640; 94760; 96374; J0696; J1940; Q9967; U0003; U0005; 99285-25; G0378; J7626